=== PATIENT | female | born 1945 | race African-American/Black ===

== ENCOUNTER 2020-10-05 13:13 | Inpatient (IN) | payer MEDICARE ==
[~2020-10-05] VITALS: Ht 152.4 cm; Wt 46.7 kg
[2020-10-05 16:42] VITALS: BP 137/77
[2020-10-05] MEDS ORDERED: METHYL SALICYLATE/MENTHOL TOPICAL OINTMENT 57GM TUBE. TP PRN (16:45)
[2020-10-05] MEDS ORDERED: ACETAMINOPHEN 325 MG TABLET PO PRN (16:45)
[2020-10-05] MEDS ORDERED: MAG HYDROX/AL HYDROX/SIMETH 30 ML ORAL.SUSP PO PRN (16:45)
[2020-10-05] MEDS ORDERED: MAGNESIUM HYDROXIDE 2,400 MG/30 ML ORAL.SUSP. PO PRN (16:45)
[2020-10-05 16:47] VITALS: BP 137/77
[2020-10-05] MEDS: NICOTINE 14MG PATCH. TD SCH (17:19)
[2020-10-05] MEDS ORDERED: DIVA250T PO (18:49)
[2020-10-05] MEDS ORDERED: LATA2.5D2 OP (18:55)
[2020-10-05] MEDS ORDERED: VENL37.510 PO (18:55)
[2020-10-05] MEDS ORDERED: METF10007 PO (18:55)
[2020-10-05] MEDS ORDERED: MELA3TAB4 PO (18:55)
[2020-10-05] MEDS ORDERED: LISI10TA16 PO (18:55)
[2020-10-05] MEDS ORDERED: PRAV20TA2 PO (18:55)
[2020-10-05] MEDS ORDERED: OLAN10TA9 PO (18:55)
[2020-10-05] MEDS: MELATONIN 3 MG TABLET PO SCH (19:34)
[2020-10-05] MEDS ORDERED: OLANZapine 10 MG TABLET PO SCH (21:00)
[2020-10-05] MEDS ORDERED: DIVALPROEX ER 250 MG TAB.ER.24H. PO SCH (21:00)
--- NOTE | 2020-10-05 21:00 | PDOC ---
Exam Note: Jose Note: Please also refer to the separate dictated note~for this date of service dictated separately.~Patient seen individually. Discussed the patient with Nursing staff reviewed the chart.~Reviewed interim history and current functioning. Reviewed vital signs,~Labs/ Radiology~and current medications noted below. Continue current treatment with the changes noted in the dictated addendum note Assessment: Vital Signs/I&O: Vital Signs Date Time Temp Pulse Resp B/P (MAP) Pulse Ox O2 Delivery O2 Flow Rate FiO2 10/05/20 16:47 97.3 110 137/77 (97) 89 10/05/20 16:42 20 refused to put on O2 Current Medications: Meds: Current Medications Medications (Trade) Dose Ordered Sig/Denise Route PRN Reason Start Time Stop Time Status Last Admin Dose Admin Melatonin (Melatonin) 3 mg QHS PO 10/05/20 21:00 10/05/20 19:34 Olanzapine (ZyPREXA) 10 mg QHS PO 10/05/20 21:00 10/05/20 19:34 I have reviewed the current psychotropics carefully including drug interactions. Risk benefit ratio favors no change other than as noted in my dictated progress note. Diagnosis: Problems: (1) Major neurocognitive disorder (2) Dementia in Alzheimer's disease with depression (3) Dementia in Alzheimer's disease with delusions RHETT MATHEW MD Oct 05, 2020 20:59
[2020-10-05] MEDS: LATANOPROST 0.005% OPHTH SOLUTION 2.5ML BOTTLE. OU SCH (21:30)
[2020-10-05] MEDS: ATORVASTATIN CALCIUM 10 MG TABLET. PO SCH (21:34)
--- NOTE | 2020-10-05 22:46 | HP ---
ADMIT DATE: 10/05/2020 PSYCHIATRIC ADMISSION HISTORY/EVALUATION This note covers elements not covered in my initial note on 10/05/2020. This evaluation was conducted via Telehealth Services due to COVID-19 pandemic. IDENTIFYING DATA: The patient is a 74-year-old female referred to us from [facility] where she presented from home within a couple of days from being discharged previously from the inpatient psychiatry Unit at [facility]. The patient has had increasing memory deficits, forgetfulness, confusion, delusions. She was extremely paranoid, psychotic, delusional, refusing medications, wandering from home. She has been belligerent, uncooperative, screaming and others, having marked insomnia. She had failed outpatient psychiatric interventions and prior inpatient psychiatric hospitalization. Behaviors were deemed dangerous, unmanageable resulting in this referral. CHIEF COMPLAINT: "I came here 2 hours back. I don't want to talk anymore. Everyone is trying to do things badly." HISTORY OF PRESENT ILLNESS: The patient has a history of major neurocognitive disorder, probably Alzheimer, vascular and a questionable history of psychotic disorder, unspecified versus bipolar disorder, mixed with psychotic features. She has been residing at home with family who had been caring for her, but recently getting extremely paranoid, delusional with marked insomnia, mood vacillations, agitation, aggression, disruptive behaviors. No active suicidal or homicidal ideation. PAST PSYCHIATRIC HISTORY: As above. MEDICAL HISTORY: Positive for diabetes and hypertension. ACCU-CHEKS: Daily; history of diabetes mellitus. DIET: Soft mechanical diabetic. CODE STATUS: Full code. ALLERGIES: MORPHINE. Ambulates with assistance. CURRENT PSYCHOTROPICS: Depakote 250 mg at bedtime, melatonin 3 mg at bedtime, Zyprexa 10 mg at bedtime, Effexor 37.5 mg daily. FAMILY HISTORY: Noncontributory. SOCIAL HISTORY: No history of alcohol, drug abuse, physical, sexual or elder abuse. She is not known to be a perpetrator. REACTION TO HOSPITALIZATION: The patient is not agreeable to this. REVIEW OF SYSTEMS: No CV, , pulmonary, eye, ENT system symptoms on review, but the patient frequently refuses to answer questions due to her paranoia. MENTAL STATUS EXAMINATION: The patient is oriented to herself. She did know she was initially referred to us previously, which is accurate. Insight, judgment, recent and remote memory, attention, concentration, fund of knowledge poor, consistent with her diagnoses. IMPRESSION: Major neurocognitive disorder, Alzheimer, vascular with delusion, depression, behavioral disturbance; psychotic disorder, unspecified, rule out schizoaffective disorder, bipolar type, mixed with psychotic features; anxiety disorder, unspecified; impulse control disorder, unspecified. Rest unchanged from above. PLAN: Admit to Geropsychiatry Unit at [facility]. I will see the patient daily individually from a psychiatric standpoint. Medical followup with Dr. Argueta/Dr. Walter. Continue the patient on her current psychotropics, get records from [facility], adjust psychotropics post baseline assessment. Consider Depakote as a mood stabilizer. Estimated length of stay 10-12 days. DISPOSITION: Plans either home depending on her progress or a more structured facility. MAN Lucio MATHEW MD DR: GURMEET/yo JOB#: [id number] / [id number]
[2020-10-06 06:31] VITALS: BP 160/95
[2020-10-06 07:34] LABS: BASO % 1 % (0-3); EOS # 0.1 x10^3/uL (0.0-0.7); EOS % 1 % (0-3); HEMATOCRIT 34.3 % (36.0-47.0); HEMOGLOBIN 11.1 g/dL (12.0-15.5); LYMPH # 1.6 x10^3/uL (1.0-4.8); LYMPH % 25 % (24-48); MEAN CORPUSCULAR HEMOGLOBIN 29 pg (25-35); MEAN CORPUSCULAR HGB CONC 32 g/dL (31-37); MEAN CORPUSCULAR VOLUME 90 fL (79-100); MONO # 0.7 x10^3/uL (0.0-1.1); MONO % 12 % (0-9); NEUT # 3.9 x10^3uL (1.8-7.7); NEUT % 62 % (31-73); PLATELET COUNT 250 x10^3/uL (140-400); RED BLOOD COUNT 3.83 x10^6/uL (3.50-5.40); RED CELL DISTRIBUTION WIDTH 14.1 % (11.5-14.5); WHITE BLOOD COUNT 6.3 x10^3/uL (4.0-11.0)
[2020-10-06 08:21] LABS: ALBUMIN 2.9 g/dL (3.4-5.0); ALBUMIN/GLOBULIN RATIO 0.6 (1.0-1.7); ALK PHOS 70 U/L (46-116); ALT (SGPT) 33 U/L (14-59); ANION GAP 2 (6-14); AST (SGOT) 27 U/L (15-37); BLOOD UREA NITROGEN 5 mg/dL (7-20); BUN/CREATININE RATIO 8 (6-20); CALCIUM 8.5 mg/dL (8.5-10.1); CARBON DIOXIDE 37 mmol/L (21-32); CHLORIDE 101 mmol/L (98-107); CREATININE 0.6 mg/dL (0.6-1.0); GFR 118.6; GLUCOSE 150 mg/dL (70-99); MAGNESIUM 1.9 mg/dL (1.8-2.4); POTASSIUM 3.6 mmol/L (3.5-5.1); SODIUM 140 mmol/L (136-145); TOTAL BILIRUBIN 0.2 mg/dL (0.2-1.0); TOTAL PROTEIN 7.5 g/dL (6.4-8.2)
[2020-10-06 08:37] LABS: VAL ACID 14 mcg/mL (50-100)
--- NOTE | 2020-10-06 09:12 | CONS ---
DATE OF CONSULTATION: 10/06/2020 ATTENDING PHYSICIAN: Dr. Conway. HISTORY OF PRESENT ILLNESS: We are asked to see this patient for medical consultation. The patient is a 74-year-old female with a longstanding history of dementia with behavioral issues. She is very paranoid, delusional, refusing meds, refusing blood sticks. She has been at several inpatient psychiatric facilities. She is belligerent, uncooperative, combative, and difficult to manage. She has a medical history of hypertension, degenerative arthritis. CURRENT MEDICATIONS: Reviewed. ALLERGIES: SHE HAS ALLERGIES TO MORPHINE, exact reaction is unclear. Currently, she is taking Depakote, Xalatan eye drops, lisinopril, melatonin, metformin, olanzapine, pravastatin, and Effexor. SOCIAL HISTORY: She is a nonsmoker, drinking history unclear. FAMILY HISTORY: Unobtainable. REVIEW OF SYSTEMS: Unobtainable. PHYSICAL EXAMINATION: GENERAL: When I saw her, this is a demented female who is most uncooperative. INITIAL VITAL SIGNS: Showed a pulse of 113 per minute, blood pressure 160/95, temperature 98.2 degrees Fahrenheit, oxygen saturation 91% on room air. HEENT: Head is without trauma. Pupils are reactive. Sclerae are nonicteric. The oropharynx is clear. NECK: Supple. LUNGS: Good breath sounds. CARDIOVASCULAR: Showed regular heart tones. No gallops. ABDOMEN: Soft, scaphoid. No guarding or rebound tenderness. EXTREMITIES: Showed no cyanosis or edema. NEUROLOGIC: Focally alert. Contact Center Assistant are intact. She has no focal deficit. We could not assess her gait due to her mental status. SKIN: Warm and dry. LABORATORY DATA: Her CBC on admission was 11.1 g/dL with a white count of 6300. Chemistry panel, electrolytes are within range. Creatinine is 0.6 mg percent, nonfasting blood sugar 143. ASSESSMENT: 1. This 74-year-old female has profound dementia with psychosis. 2. Belligerent behavior. 3. Essential hypertension. 4. Type 2 diabetes. 5. The patient is stable from medical standpoint. RECOMMENDATIONS: 1. I reviewed her medicines. I recommended we continue the same dosage if she will take it. 2. We shall gladly follow along during the course of her inpatient care. Thank you again for asking me to see this patient for medical consultation. BRYAN WEEKS MD DR: DAVION/yo JOB#: [id number] / [id number]
[2020-10-06] MEDS: VENLAFAXINE XR 37.5 MG CAP.ER.24H. PO SCH (09:49)
[2020-10-06] MEDS: LISINOPRIL 10 MG TABLET PO SCH (09:50)
[2020-10-06] MEDS: NICOTINE 14MG PATCH. TD SCH (09:50)
[2020-10-06 12:00] LABS: CLARITY,URINE CLEAR; COLOR,URINE YELLOW
[2020-10-06 12:01] LABS: BACTERIA,URINE 0 /HPF (0-FEW); BILIRUBIN,URINE NEG (NEG); GLUCOSE,URINE NEG (NEG); NITRITE,URINE NEG (NEG); RBC,URINE 0 /HPF (0-2); UROBILINOGEN,URINE 0.2 mg/dL (0.2 mg/dL); WBC,URINE 0 /HPF (0-4)
[2020-10-06] MEDS: metFORMIN XR 500 MG TAB.ER.24H PO SCH (12:34)
[2020-10-06 13:10] LABS: THYROXINE 8.3 ug/dL (4.5-12.0)
[2020-10-06 15:20] LABS: THYROID STIM HORMONE (TSH) 2.087 uIU/mL (0.358-3.740)
[2020-10-06 17:44] VITALS: BP 177/69
[2020-10-06] MEDS: MELATONIN 3 MG TABLET PO SCH (19:40)
[2020-10-06] MEDS: VALPROATE ACID 250 MG/5 ML ORAL SOLUTION PO SCH ×3 (19:40→23:00)
[2020-10-06] MEDS: ATORVASTATIN CALCIUM 10 MG TABLET. PO SCH (19:41)
[2020-10-06] MEDS: LATANOPROST 0.005% OPHTH SOLUTION 2.5ML BOTTLE. OU SCH (19:41)
[2020-10-06] MEDS: risperiDONE ORAL 1 MG/ML 30ml BOTTLE. SL SCH ×2 (19:42→23:00)
[2020-10-07] MEDS: LATANOPROST 0.005% OPHTH SOLUTION 2.5ML BOTTLE. OU SCH ×3 (02:57→21:00)
[2020-10-07] MEDS: MELATONIN 3 MG TABLET PO SCH ×3 (02:58→21:00)
[2020-10-07] MEDS: ATORVASTATIN CALCIUM 10 MG TABLET. PO SCH ×3 (02:59→21:00)
[2020-10-07 06:16] VITALS: BP 181/63
[2020-10-07] MEDS: risperiDONE ORAL 1 MG/ML 30ml BOTTLE. SL SCH ×2 (06:17→08:41)
--- NOTE | 2020-10-07 07:59 | PDOC ---
Exam Note: Jose Note: This note is a late entry for 10/06/2020 covers elements not covered in my initial note. Subjective: The patient was reviewed on telehealth rounds in the evening of 10/06/2020 with Sylvain CEBALLOS. Discussed with nursing staff, reviewed the chart. The patient slept 5-3/4 hours previous night. She has been quite paranoid, refusing her labs, EKG, refusing her medications. She has been talking to curtains and actively hallucinating. Oral intake has been poor. Received her Zyprexa and melatonin in food previous night. Review of Systems: Ambulation impaired. No CV, , pulmonary, eye, ENT system symptoms on review. Mental Status Exam: The patient is oriented to herself and situation. Speech is coherent. Abstraction is fair. Computation is impaired. Language function is intact. Attention span is short. She is quite paranoid, psychotic, and dismissive as I met with her on telehealth rounds. No active suicidal or homicidal ideation. Laboratory Data: Reviewed. Impression: Major neurocognitive disorder Alzheimer vascular with delusion, depression, behavioral disturbance. Psychotic disorder unspecified. Anxiety disorder unspecified. Impulse control disorder unspecified. Plan: Given the patients non-compliance with her medications, we will change Depakote ER 250 mg h.s. to Depakene liquid 500 mg any time of the day she takes it. Check CBC, CMP, valproic acid level in 3 days. Check an EKG. Change the Zyprexa 10 mg h.s. to Risperdal liquid 1 mg daily. She can take it any time of the day. Continue Effexor 37.5 mg a day, melatonin 3 mg h.s. Assessment: Vital Signs/I&O: Vital Signs Date Time Temp Pulse Resp B/P (MAP) Pulse Ox O2 Delivery O2 Flow Rate FiO2 10/07/20 06:16 98.0 100 22 181/63 (102) 92 Room Air I & O 10/06/20 10/06/20 10/07/20 15:00 23:00 07:00 Intake Total 200 ml 540 ml Balance 200 ml 540 ml Labs: Laboratory Tests Test 10/06/20 11:05 Urine Collection Type Unknown Urine Color Yellow Urine Clarity Clear Urine pH 8.5 Urine Specific [place] 1.020 Urine Protein Trace (NEG-TRACE) Urine Glucose (UA) Neg mg/dL (NEG) Urine Ketones (Stick) Neg mg/dL (NEG) Urine Blood Neg (NEG) Urine Nitrite Neg (NEG) Urine Bilirubin Neg (NEG) Urine Urobilinogen Dipstick 0.2 mg/dL (0.2 mg/dL) Urine Leukocyte Esterase Neg (NEG) Urine RBC 0 /HPF (0-2) Urine WBC 0 /HPF (0-4) Urine Squamous Epithelial Cells None /LPF Urine Bacteria 0 /HPF (0-FEW) Current Medications: Meds: Laboratory Tests Test 10/06/20 11:05 Urine Collection Type Unknown Urine Color Yellow Urine Clarity Clear Urine pH 8.5 Urine Specific [place] 1.020 Urine Protein Trace Urine Glucose (UA) Neg mg/dL Urine Ketones (Stick) Neg mg/dL Urine Blood Neg Urine Nitrite Neg Urine Bilirubin Neg Urine Urobilinogen Dipstick 0.2 mg/dL Urine Leukocyte Esterase Neg Urine RBC 0 /HPF Urine WBC 0 /HPF Urine Squamous Epithelial Cells None /LPF Urine Bacteria 0 /HPF Current Medications Medications (Trade) Dose Ordered Sig/Denise Route PRN Reason Start Time Stop Time Status Last Admin Dose Admin Acetaminophen (Tylenol) 650 mg PRN Q6HRS PRN PO MILD PAIN / TEMP > 100.3'F 10/05/20 16:45 Multi-Ingredient Ointment (Analgesic [place]) 1 uzair PRN QID PRN TP MUSCLE PAIN 10/05/20 16:45 Al Hydroxide/Mg Hydroxide (Mylanta Plus Xs) 15 ml PRN AFTMEALHC PRN PO DYSPEPSIA 10/05/20 16:45 Magnesium Hydroxide (Milk Of Magnesia) 2,400 mg PRN QHS PRN PO CONSTIPATION 10/05/20 16:45 Nicotine (Nicoderm Cq 14mg Patch) 1 patch DAILY TD 10/05/20 17:30 Divalproex Sodium (Depakote Er) 250 mg QHS PO 10/05/20 21:00 10/06/20 18:27 DC Latanoprost (Xalatan) 1 drop QHS OU 10/05/20 21:00 Lisinopril (Prinivil) 10 mg DAILY PO 10/06/20 09:00 Melatonin (Melatonin) 3 mg QHS PO 10/05/20 21:00 10/05/20 19:34 Olanzapine (ZyPREXA) 10 mg QHS PO 10/05/20 21:00 10/06/20 19:55 DC 10/05/20 19:34 Non-Formulary Medication (Metformin Hcl ) 1,000 mg DAILYWBKFT PO 10/06/20 08:00 10/06/20 10:14 DC Atorvastatin Calcium (Lipitor) 5 mg QHS PO 10/05/20 21:00 Venlafaxine HCl (Effexor Xr) 37.5 mg DAILY PO 10/06/20 09:00 Metformin HCl (Glucophage Xr) 1,000 mg DAILYWBKFT PO 10/06/20 12:00 Risperidone (RisperDAL) 1 mg DAILY SL 10/06/20 20:00 Valproic Acid (Depakene) 250 mg DAILY PO 10/06/20 20:00 I have reviewed the current psychotropics carefully including drug interactions. Risk benefit ratio favors no change other than as noted in my dictated progress note. Diagnosis: Problems: (1) Dementia in Alzheimer's disease with depression (2) Dementia in Alzheimer's disease with delusions (3) Major neurocognitive disorder (4) Vascular dementia with behavior disturbance (5) Dementia, vascular, with delusions (6) Dementia, vascular, with depression (7) Anxiety disorder, unspecified (8) Impulse disorder, unspecified (9) Psychotic disorder RHETT MATHEW MD Oct 07, 2020 07:59
[2020-10-07] MEDS: metFORMIN XR 500 MG TAB.ER.24H PO SCH (08:40)
[2020-10-07] MEDS: LISINOPRIL 10 MG TABLET PO SCH (08:41)
[2020-10-07] MEDS: VENLAFAXINE XR 37.5 MG CAP.ER.24H. PO SCH (08:42)
[2020-10-07] MEDS: NICOTINE 14MG PATCH. TD SCH (12:12)
--- NOTE | 2020-10-07 15:29 | TX PLAN ---
Interdisciplinary Tx Plan Admission Information Oct 05, 2020 at 16:15 Legal Status (on Admission): Voluntary DPOA/Guardian Name: Lolis Yip Contact Verified Code Status: Full Code Allergies: Coded Allergies: morphine (Verified Allergy, Unknown, 10/05/20) Diagnoses Primary Diagnosis: Schizoaffective D/O with psychosis; Major Neurocognitive D/O, Vascular Alzheimers with delusions, depression, and behavioral disturbance Reasons for Admission: Delusions, Sig. Change Sleep, Combative, Suspicious/paranoid, Poor impulse control, Other Problem in Patient's Words: Her behaviors continue to increase over the years and is non-compliant with medications. Additional Admission Comments: According to the intake, pt has insomnia, paranoid, delusional and refusing meds. Pt was found on her neighbors porch after wandering away from home, beligerent, uncooperative, screaming at others, combative. Problems Active Problems: Non-compliant with medications delusional verbal aggression periods of combativeness withdrawn to room Inactive Problems: Up ad saba Self-toilets Pt Strengths/Limitations Ability for [place]: Poor Cognitive Functioning/Ability: Fair Communication Skills/Ability: Fair Financial Resources: Fair Insight/Judgement: Poor Intellectual Ability: Fair Physical Health: Fair Social Skills: Poor Stability in Family: Good Stability in School/Work: Poor Verbal Skills: Fair Discharge Criteria Discharge Criteria: Able meet basic life need, Adequate arrangements @DC, Improved behavior, Improved mood/thought Preliminary Discharge Plan Preliminary DC Plan: Current Living Arrange. Special Precautions Fall Risk: Low Initial D/C Plan Pt to return back home with her caregiver once stable. Identified Discharge Needs: Home healthcare Psychiatric services Case Management Currently Utilized Resources Currently Utilized Resources/P: Primary Care Physician Caregiver in the home Referrals Community Resources: Psychiatric services Case Management Identified Problems/Hx/Goals Objectives/Short-Term Goals Short Term Goals: Dec. Aggression, Dec. Hallucination/Delus, Dec. Outbursts, Medication Stabilization, Promote Coping Skill Short Term Goals in Patient's: N/A Interventions/Frequency Staff Interventions/Frequency&: Psychiatrist to assess pt at least 3x per week for medication management. Social Work to assess pt at least 2x per week for recognizing potential barriers to care and discharge planning. Nursing to assess medication effects, behavioral management and completion of 15 minute checks daily. Encourage group participation in activities (if applicable) or 1:1 engagement based off Activity Dept goals. 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 Education: Pt graduated high school (12th grade), received her associates and went on to receive her Bachelors but never finished the last semester of school. Pt is unsure as to what degree pt was striving for. Community Follow-up Primary Care Physician Psychiatry referral Case management referral Community Provider/Family Inpu: A lot of concerns about medications and fear for restraints in which SW assured pt dtr that restraints are illegal and are not an option on this unit. Pt dtr wants good care and a better quality of life for pt once she is able to return home for [facility]. Treatment Plan Explained Patient/Watch Technician had this treatment plan explained to him/her as indicated by the signature below and has been given the opportunity to ask questions and make suggestions: Date: Patient/Watch Technician Signature: Patient/Watch Technician Decline: No (Pt dtr is very active in pt care) JASPER DIGGS Oct 07, 2020 15:29
[2020-10-07 16:02] VITALS: BP 171/78
--- NOTE | 2020-10-07 20:56 | PDOC ---
Exam Note: Jose Note: Please also refer to the separate dictated note~for this date of service dictated separately.~Patient seen individually. Discussed the patient with Nursing staff reviewed the chart.~Reviewed interim history and current functioning. Reviewed vital signs,~Labs/ Radiology~and current medications noted below. Continue current treatment with the changes noted in the dictated addendum note Assessment: Vital Signs/I&O: Vital Signs Date Time Temp Pulse Resp B/P (MAP) Pulse Ox O2 Delivery O2 Flow Rate FiO2 10/07/20 16:02 97.4 104 18 171/78 (109) 92 10/07/20 06:16 Room Air I & O 10/06/20 10/06/20 10/07/20 15:00 23:00 07:00 Intake Total 200 ml 540 ml Balance 200 ml 540 ml Labs: Laboratory Tests Test 10/07/20 08:00 Glucose (Fingerstick) 166 mg/dL (70-99) H Current Medications: Meds: Laboratory Tests Test 10/07/20 08:00 Glucose (Fingerstick) 166 mg/dL Current Medications Medications (Trade) Dose Ordered Sig/Denise Route PRN Reason Start Time Stop Time Status Last Admin Dose Admin Acetaminophen (Tylenol) 650 mg PRN Q6HRS PRN PO MILD PAIN / TEMP > 100.3'F 10/05/20 16:45 Multi-Ingredient Ointment (Analgesic [place]) 1 uzair PRN QID PRN TP MUSCLE PAIN 10/05/20 16:45 Al Hydroxide/Mg Hydroxide (Mylanta Plus Xs) 15 ml PRN AFTMEALHC PRN PO DYSPEPSIA 10/05/20 16:45 Magnesium Hydroxide (Milk Of Magnesia) 2,400 mg PRN QHS PRN PO CONSTIPATION 10/05/20 16:45 Nicotine (Nicoderm Cq 14mg Patch) 1 patch DAILY TD 10/05/20 17:30 Divalproex Sodium (Depakote Er) 250 mg QHS PO 10/05/20 21:00 10/06/20 18:27 DC Latanoprost (Xalatan) 1 drop QHS OU 10/05/20 21:00 Lisinopril (Prinivil) 10 mg DAILY PO 10/06/20 09:00 10/07/20 08:41 Melatonin (Melatonin) 3 mg QHS PO 10/05/20 21:00 10/05/20 19:34 Olanzapine (ZyPREXA) 10 mg QHS PO 10/05/20 21:00 10/06/20 19:55 DC 10/05/20 19:34 Non-Formulary Medication (Metformin Hcl ) 1,000 mg DAILYWBKFT PO 10/06/20 08:00 10/06/20 10:14 DC Atorvastatin Calcium (Lipitor) 5 mg QHS PO 10/05/20 21:00 Venlafaxine HCl (Effexor Xr) 37.5 mg DAILY PO 10/06/20 09:00 10/07/20 08:42 Metformin HCl (Glucophage Xr) 1,000 mg DAILYWBKFT PO 10/06/20 12:00 10/07/20 08:40 Risperidone (RisperDAL) 1 mg DAILY SL 10/06/20 20:00 10/07/20 08:41 Valproic Acid (Depakene) 250 mg DAILY PO 10/06/20 20:00 I have reviewed the current psychotropics carefully including drug interactions. Risk benefit ratio favors no change other than as noted in my dictated progress note. Diagnosis: Problems: (1) Dementia in Alzheimer's disease with depression (2) Dementia in Alzheimer's disease with delusions (3) Major neurocognitive disorder (4) Psychotic disorder (5) Anxiety disorder, unspecified (6) Dementia, vascular, with depression (7) Dementia, vascular, with delusions (8) Impulse disorder, unspecified (9) Vascular dementia with behavior disturbance RHETT MATHEW MD Oct 07, 2020 20:56
--- NOTE | 2020-10-07 22:50 | PN ---
DATE: 10/07/2020 PSYCHIATRIC PROGRESS NOTE This note covers elements not covered in my initial note 10/07/2020. SUBJECTIVE: I met with the patient evening of 10/07/2020 on telehealth rounds at length and earlier in the day. The patient was seen at a treatment team meeting with the entire team along with LIN Narayan, her nurse and her daughter, Estella, attending and Indu Barakat and Serina from adoption social worker staff and Deedee, activity therapy. We reviewed the patient's history at length and daughter remarked how the patient has had a longstanding diagnosis of bipolar disorder versus schizophrenia, most probably consistent with schizoaffective disorder, bipolar type. Daughter remembered that when daughter was in high school, mother remained in outpatient psychiatric treatment and has had multiple psychiatric inpatient hospitalizations. The daughter is a legal guardian. Symptoms seemed to worsen starting in 2012 and most of her hospitalizations have been at [facility]. Daughter feels the patient responds negatively to Haldol and we will note this as an allergy for her since the daughter is quite clear on this. Additionally, recently, she has had some increased confusion, even though she recognizes family members. She is forgetful of dates. She slept 5 hours previous night. She has done a little better today, less paranoid, seems to be responding to the Risperdal, which we initiated 1 mg at bedtime. In the evening, she was having a conversation with herself actively, continues to be psychotic even though there is some improvement. REVIEW OF SYSTEMS: No CV, , pulmonary, eye system symptoms on review. MENTAL STATUS EXAMINATION: The patient is oriented to herself and situation. Speech has some latency, coherent, often responses monosyllabic. Abstraction fair, computation impaired, language function intact, attention span short. She is quite paranoid, suspicious. No suicidal or homicidal ideation. LABORATORY DATA: Reviewed. IMPRESSION: Schizoaffective disorder, bipolar type, mixed with psychotic features; mild cognitive impairment versus major neurocognitive disorder; early Alzheimer, vascular with delusion and depression. The patient may need neuropsychological testing as an outpatient. IMPRESSION: as above. PLAN: Continue current psychotropics. May need to increase Risperdal and adjust Depakene post-valproic acid level being obtained. MAN M. PRIYANKA, MD DR: GURMEET/yo JOB#: [id number] / [id number]
[2020-10-08 06:05] VITALS: BP 165/80
[2020-10-08] MEDS: metFORMIN XR 500 MG TAB.ER.24H PO SCH (08:00)
[2020-10-08] MEDS: LISINOPRIL 10 MG TABLET PO SCH (08:44)
[2020-10-08] MEDS: VENLAFAXINE XR 37.5 MG CAP.ER.24H. PO SCH (08:44)
[2020-10-08] MEDS: NICOTINE 14MG PATCH. TD SCH (08:44)
[2020-10-08] MEDS: risperiDONE ORAL 1 MG/ML 30ml BOTTLE. SL SCH (08:59)
[2020-10-08] MEDS: VALPROATE ACID 250 MG/5 ML ORAL SOLUTION PO SCH (08:59)
[2020-10-08 16:25] VITALS: BP 165/69
[2020-10-08] MEDS: ATORVASTATIN CALCIUM 10 MG TABLET. PO SCH ×2 (20:23→21:00)
[2020-10-08] MEDS: LATANOPROST 0.005% OPHTH SOLUTION 2.5ML BOTTLE. OU SCH ×2 (20:23→21:00)
[2020-10-08] MEDS: MELATONIN 3 MG TABLET PO SCH ×2 (20:23→21:00)
--- NOTE | 2020-10-08 21:04 | PDOC ---
Exam Note: Jose Note: Please also refer to the separate dictated note~for this date of service dictated separately.~Patient seen individually. Discussed the patient with Nursing staff reviewed the chart.~Reviewed interim history and current functioning. Reviewed vital signs,~Labs/ Radiology~and current medications noted below. Continue current treatment with the changes noted in the dictated addendum note Assessment: Vital Signs/I&O: Vital Signs Date Time Temp Pulse Resp B/P (MAP) Pulse Ox O2 Delivery O2 Flow Rate FiO2 10/08/20 16:25 98.5 96 20 165/69 (101) 93 Room Air I & O 10/07/20 10/07/20 10/08/20 15:00 23:00 07:00 Intake Total 720 ml 460 ml Balance 720 ml 460 ml Labs: Laboratory Tests Test 10/08/20 07:40 Glucose (Fingerstick) 153 mg/dL (70-99) H Current Medications: Meds: Laboratory Tests Test 10/08/20 07:40 Glucose (Fingerstick) 153 mg/dL Current Medications Medications (Trade) Dose Ordered Sig/Denise Route PRN Reason Start Time Stop Time Status Last Admin Dose Admin Acetaminophen (Tylenol) 650 mg PRN Q6HRS PRN PO MILD PAIN / TEMP > 100.3'F 10/05/20 16:45 Multi-Ingredient Ointment (Analgesic [place]) 1 uzair PRN QID PRN TP MUSCLE PAIN 10/05/20 16:45 Al Hydroxide/Mg Hydroxide (Mylanta Plus Xs) 15 ml PRN AFTMEALHC PRN PO DYSPEPSIA 10/05/20 16:45 Magnesium Hydroxide (Milk Of Magnesia) 2,400 mg PRN QHS PRN PO CONSTIPATION 10/05/20 16:45 Nicotine (Nicoderm Cq 14mg Patch) 1 patch DAILY TD 10/05/20 17:30 10/08/20 08:44 Divalproex Sodium (Depakote Er) 250 mg QHS PO 10/05/20 21:00 10/06/20 18:27 DC Latanoprost (Xalatan) 1 drop QHS OU 10/05/20 21:00 10/08/20 20:23 Lisinopril (Prinivil) 10 mg DAILY PO 10/06/20 09:00 10/08/20 08:44 Melatonin (Melatonin) 3 mg QHS PO 10/05/20 21:00 10/08/20 20:23 Olanzapine (ZyPREXA) 10 mg QHS PO 10/05/20 21:00 10/06/20 19:55 DC 10/05/20 19:34 Non-Formulary Medication (Metformin Hcl ) 1,000 mg DAILYWBKFT PO 10/06/20 08:00 10/06/20 10:14 DC Atorvastatin Calcium (Lipitor) 5 mg QHS PO 10/05/20 21:00 10/08/20 20:23 Venlafaxine HCl (Effexor Xr) 37.5 mg DAILY PO 10/06/20 09:00 10/08/20 08:44 Metformin HCl (Glucophage Xr) 1,000 mg DAILYWBKFT PO 10/06/20 12:00 10/08/20 08:00 Risperidone (RisperDAL) 1 mg DAILY SL 10/06/20 20:00 10/08/20 17:08 DC 10/07/20 08:41 Valproic Acid (Depakene) 250 mg DAILY PO 10/06/20 20:00 10/08/20 17:08 DC Divalproex Sodium (Depakote Sprinkles) 500 mg DAILY PO 10/09/20 09:00 Risperidone (RisperDAL) 1.5 mg DAILY PO 10/09/20 09:00 I have reviewed the current psychotropics carefully including drug interactions. Risk benefit ratio favors no change other than as noted in my dictated progress note. Diagnosis: Problems: (1) Dementia in Alzheimer's disease with depression (2) Dementia in Alzheimer's disease with delusions (3) Major neurocognitive disorder (4) Psychotic disorder (5) Anxiety disorder, unspecified (6) Dementia, vascular, with depression (7) Dementia, vascular, with delusions (8) Impulse disorder, unspecified (9) Vascular dementia with behavior disturbance RHETT MATHEW MD Oct 08, 2020 21:04
[2020-10-09 05:53] VITALS: BP 157/77
[2020-10-09 07:28] LABS: BASO % 1 % (0-3); EOS # 0.1 x10^3/uL (0.0-0.7); EOS % 2 % (0-3); HEMATOCRIT 34.2 % (36.0-47.0); HEMOGLOBIN 11.1 g/dL (12.0-15.5); LYMPH # 1.3 x10^3/uL (1.0-4.8); LYMPH % 25 % (24-48); MEAN CORPUSCULAR HEMOGLOBIN 29 pg (25-35); MEAN CORPUSCULAR HGB CONC 32 g/dL (31-37); MEAN CORPUSCULAR VOLUME 91 fL (79-100); MONO # 0.7 x10^3/uL (0.0-1.1); MONO % 13 % (0-9); NEUT % 59 % (31-73); PLATELET COUNT 258 x10^3/uL (140-400); RED BLOOD COUNT 3.77 x10^6/uL (3.50-5.40); WHITE BLOOD COUNT 5.1 x10^3/uL (4.0-11.0)
--- NOTE | 2020-10-09 07:31 | PDOC ---
Exam Note: Jose Note: This note is a late entry for 10/08/2020 covers elements not covered in my initial note. Subjective: The patient was reviewed on telehealth rounds in the evening of 10/08/2020 with Eryn CEBALLOS. Discussed with nursing staff, reviewed the chart. The patient slept 3-1/4 hours previous night. She is well aware of her medications, able to identify each one separately per nursing report. She continues to talk to herself, remains intermittently psychotic but refused her liquid Risperdal and Depakene. She is agreeable to taking the tablets and I had discussion with her about this. Review of Systems: Ambulation impaired. No CV, , pulmonary, eye, ENT system symptoms on review. Mental Status Exam: The patient is reasonably oriented. Speech is coherent, somewhat pressured at times. Abstraction is fair. Computation is impaired. Language function is intact. Mood and affect remains somewhat anxious, labile. She is still psychotic. No suicidal or homicidal ideation. Laboratory Data: Reviewed. Impression: Schizoaffective disorder bipolar type mixed with psychotic features. Mild cognitive impairment. Anxiety disorder unspecified. Impulse control disorder unspecified. Plan: The patients valproic acid level is subtherapeutic at 14 on Depakote 250 mg h.s. We will increase to 500 mg p.o. h.s. Check CBC, CMP, valproic acid level in 3 days. Increase Risperdal from 1 mg daily to 1.5 mg daily tablets. Continue rest of the psychotropics unchanged. Adjust further as clinically indicated. Assessment: Vital Signs/I&O: Vital Signs Date Time Temp Pulse Resp B/P (MAP) Pulse Ox O2 Delivery O2 Flow Rate FiO2 10/09/20 05:53 98.5 89 18 157/77 (103) 92 10/08/20 16:25 Room Air I & O 10/08/20 10/08/20 10/09/20 15:00 23:00 07:00 Intake Total 600 ml 720 ml Balance 600 ml 720 ml Labs: Laboratory Tests Test 10/08/20 07:40 Glucose (Fingerstick) 153 mg/dL (70-99) H Current Medications: Meds: Laboratory Tests Test 10/08/20 07:40 Glucose (Fingerstick) 153 mg/dL Current Medications Medications (Trade) Dose Ordered Sig/Denise Route PRN Reason Start Time Stop Time Status Last Admin Dose Admin Acetaminophen (Tylenol) 650 mg PRN Q6HRS PRN PO MILD PAIN / TEMP > 100.3'F 10/05/20 16:45 Multi-Ingredient Ointment (Analgesic [place]) 1 uzair PRN QID PRN TP MUSCLE PAIN 10/05/20 16:45 Al Hydroxide/Mg Hydroxide (Mylanta Plus Xs) 15 ml PRN AFTMEALHC PRN PO DYSPEPSIA 10/05/20 16:45 Magnesium Hydroxide (Milk Of Magnesia) 2,400 mg PRN QHS PRN PO CONSTIPATION 10/05/20 16:45 Nicotine (Nicoderm Cq 14mg Patch) 1 patch DAILY TD 10/05/20 17:30 10/08/20 08:44 Divalproex Sodium (Depakote Er) 250 mg QHS PO 10/05/20 21:00 10/06/20 18:27 DC Latanoprost (Xalatan) 1 drop QHS OU 10/05/20 21:00 Lisinopril (Prinivil) 10 mg DAILY PO 10/06/20 09:00 10/08/20 08:44 Melatonin (Melatonin) 3 mg QHS PO 10/05/20 21:00 10/05/20 19:34 Olanzapine (ZyPREXA) 10 mg QHS PO 10/05/20 21:00 10/06/20 19:55 DC 10/05/20 19:34 Non-Formulary Medication (Metformin Hcl ) 1,000 mg DAILYWBKFT PO 10/06/20 08:00 10/06/20 10:14 DC Atorvastatin Calcium (Lipitor) 5 mg QHS PO 10/05/20 21:00 Venlafaxine HCl (Effexor Xr) 37.5 mg DAILY PO 10/06/20 09:00 10/08/20 08:44 Metformin HCl (Glucophage Xr) 1,000 mg DAILYWBKFT PO 10/06/20 12:00 10/08/20 08:00 Risperidone (RisperDAL) 1 mg DAILY SL 10/06/20 20:00 10/08/20 17:08 DC 10/07/20 08:41 Valproic Acid (Depakene) 250 mg DAILY PO 10/06/20 20:00 10/08/20 17:08 DC Divalproex Sodium (Depakote Sprinkles) 500 mg DAILY PO 10/09/20 09:00 Risperidone (RisperDAL) 1.5 mg DAILY PO 10/09/20 09:00 I have reviewed the current psychotropics carefully including drug interactions. Risk benefit ratio favors no change other than as noted in my dictated progress note. Diagnosis: Problems: (1) Schizoaffective disorder, bipolar type (2) Bipolar disorder, current episode mixed, severe, with psychotic features (3) Mild cognitive impairment (4) Anxiety disorder, unspecified (5) Impulse disorder, unspecified RHETT MATHEW MD Oct 09, 2020 07:31
[2020-10-09] MEDS: VENLAFAXINE XR 37.5 MG CAP.ER.24H. PO SCH (08:16)
[2020-10-09] MEDS: DIVALPROEX 125 MG CAP.SPRINK PO SCH (08:16)
[2020-10-09] MEDS: metFORMIN XR 500 MG TAB.ER.24H PO SCH (08:16)
[2020-10-09] MEDS: risperiDONE 0.5 MG TABLET. PO SCH (08:16)
[2020-10-09] MEDS: LISINOPRIL 10 MG TABLET PO SCH (08:16)
[2020-10-09] MEDS: NICOTINE 14MG PATCH. TD SCH (08:16)
[2020-10-09 09:14] LABS: ALBUMIN 3.4 g/dL (3.4-5.0); ALBUMIN/GLOBULIN RATIO 0.7 (1.0-1.7); ALK PHOS 76 U/L (46-116); ALT (SGPT) 32 U/L (14-59); ANION GAP 2 (6-14); AST (SGOT) 26 U/L (15-37); BLOOD UREA NITROGEN 9 mg/dL (7-20); BUN/CREATININE RATIO 13 (6-20); CALCIUM 9.3 mg/dL (8.5-10.1); CARBON DIOXIDE 37 mmol/L (21-32); CHLORIDE 96 mmol/L (98-107); CREATININE 0.7 mg/dL (0.6-1.0); GFR 99.2; GLUCOSE 140 mg/dL (70-99); POTASSIUM 4.2 mmol/L (3.5-5.1); SODIUM 135 mmol/L (136-145); TOTAL BILIRUBIN 0.4 mg/dL (0.2-1.0); TOTAL PROTEIN 8.4 g/dL (6.4-8.2)
[2020-10-09 09:29] LABS: VAL ACID < 3 mcg/mL (50-100)
[2020-10-09 16:07] VITALS: BP 137/77
--- NOTE | 2020-10-09 20:48 | PDOC ---
Exam Note: Jose Note: Please also refer to the separate dictated note~for this date of service dictated separately.~Patient seen individually. Discussed the patient with Nursing staff reviewed the chart.~Reviewed interim history and current functioning. Reviewed vital signs,~Labs/ Radiology~and current medications noted below. Continue current treatment with the changes noted in the dictated addendum note Assessment: Vital Signs/I&O: Vital Signs Date Time Temp Pulse Resp B/P (MAP) Pulse Ox O2 Delivery O2 Flow Rate FiO2 10/09/20 16:07 98.2 92 18 137/77 (97) 97 10/08/20 16:25 Room Air I & O 10/08/20 10/08/20 10/09/20 15:00 23:00 07:00 Intake Total 600 ml 720 ml Balance 600 ml 720 ml Labs: Laboratory Tests Test 10/09/20 07:04 10/09/20 07:23 White Blood Count 5.1 x10^3/uL (4.0-11.0) Red Blood Count 3.77 x10^6/uL (3.50-5.40) Hemoglobin 11.1 g/dL (12.0-15.5) L Hematocrit 34.2 % (36.0-47.0) L Mean Corpuscular Volume 91 fL (79-100) Mean Corpuscular Hemoglobin 29 pg (25-35) Mean Corpuscular Hemoglobin Concent 32 g/dL (31-37) Red Cell Distribution Width 14.0 % (11.5-14.5) Platelet Count 258 x10^3/uL (140-400) Neutrophils (%) (Auto) 59 % (31-73) Lymphocytes (%) (Auto) 25 % (24-48) Monocytes (%) (Auto) 13 % (0-9) H Eosinophils (%) (Auto) 2 % (0-3) Basophils (%) (Auto) 1 % (0-3) Neutrophils # (Auto) 3.0 x10^3uL (1.8-7.7) Lymphocytes # (Auto) 1.3 x10^3/uL (1.0-4.8) Monocytes # (Auto) 0.7 x10^3/uL (0.0-1.1) Eosinophils # (Auto) 0.1 x10^3/uL (0.0-0.7) Basophils # (Auto) 0.0 x10^3/uL (0.0-0.2) Sodium Level 135 mmol/L (136-145) L Potassium Level 4.2 mmol/L (3.5-5.1) Chloride Level 96 mmol/L (98-107) L Carbon Dioxide Level 37 mmol/L (21-32) H Anion Gap 2 (6-14) L Blood Urea Nitrogen 9 mg/dL (7-20) Creatinine 0.7 mg/dL (0.6-1.0) Estimated GFR (Cockcroft-Gault) 99.2 BUN/Creatinine Ratio 13 (6-20) Glucose Level 140 mg/dL (70-99) H Calcium Level 9.3 mg/dL (8.5-10.1) Total Bilirubin 0.4 mg/dL (0.2-1.0) Aspartate Amino Transferase (AST) 26 U/L (15-37) Alanine Aminotransferase (ALT) 32 U/L (14-59) Alkaline Phosphatase 76 U/L (46-116) Total Protein 8.4 g/dL (6.4-8.2) H Albumin 3.4 g/dL (3.4-5.0) Albumin/Globulin Ratio 0.7 (1.0-1.7) L Valproic Acid Level < 3 mcg/mL (50-100) L Valproic Acid Last Dose Date 10/08/2020 Valproic Acid Last Dose Time 1000 Glucose (Fingerstick) 137 mg/dL (70-99) H Current Medications: Meds: Laboratory Tests Test 10/09/20 07:04 10/09/20 07:23 White Blood Count 5.1 x10^3/uL Red Blood Count 3.77 x10^6/uL Hemoglobin 11.1 g/dL Hematocrit 34.2 % Mean Corpuscular Volume 91 fL Mean Corpuscular Hemoglobin 29 pg Mean Corpuscular Hemoglobin Concent 32 g/dL Red Cell Distribution Width 14.0 % Platelet Count 258 x10^3/uL Neutrophils (%) (Auto) 59 % Lymphocytes (%) (Auto) 25 % Monocytes (%) (Auto) 13 % Eosinophils (%) (Auto) 2 % Basophils (%) (Auto) 1 % Neutrophils # (Auto) 3.0 x10^3uL Lymphocytes # (Auto) 1.3 x10^3/uL Monocytes # (Auto) 0.7 x10^3/uL Eosinophils # (Auto) 0.1 x10^3/uL Basophils # (Auto) 0.0 x10^3/uL Sodium Level 135 mmol/L Potassium Level 4.2 mmol/L Chloride Level 96 mmol/L Carbon Dioxide Level 37 mmol/L Anion Gap 2 Blood Urea Nitrogen 9 mg/dL Creatinine 0.7 mg/dL Estimated GFR (Cockcroft-Gault) 99.2 BUN/Creatinine Ratio 13 Glucose Level 140 mg/dL Calcium Level 9.3 mg/dL Total Bilirubin 0.4 mg/dL Aspartate Amino Transf (AST/SGOT) 26 U/L Alanine Aminotransferase (ALT/SGPT) 32 U/L Alkaline Phosphatase 76 U/L Total Protein 8.4 g/dL Albumin 3.4 g/dL Albumin/Globulin Ratio 0.7 Valproic Acid (Depakene) Level < 3 mcg/mL Valproic Acid Last Dose Date 10/08/2020 Valproic Acid Last Dose Time 1000 Glucose (Fingerstick) 137 mg/dL Current Medications Medications (Trade) Dose Ordered Sig/Denise Route PRN Reason Start Time Stop Time Status Last Admin Dose Admin Acetaminophen (Tylenol) 650 mg PRN Q6HRS PRN PO MILD PAIN / TEMP > 100.3'F 10/05/20 16:45 Multi-Ingredient Ointment (Analgesic [place]) 1 uzair PRN QID PRN TP MUSCLE PAIN 10/05/20 16:45 Al Hydroxide/Mg Hydroxide (Mylanta Plus Xs) 15 ml PRN AFTMEALHC PRN PO DYSPEPSIA 10/05/20 16:45 Magnesium Hydroxide (Milk Of Magnesia) 2,400 mg PRN QHS PRN PO CONSTIPATION 10/05/20 16:45 Nicotine (Nicoderm Cq 14mg Patch) 1 patch DAILY TD 10/05/20 17:30 10/09/20 08:16 Divalproex Sodium (Depakote Er) 250 mg QHS PO 10/05/20 21:00 10/06/20 18:27 DC Latanoprost (Xalatan) 1 drop QHS OU 10/05/20 21:00 Lisinopril (Prinivil) 10 mg DAILY PO 10/06/20 09:00 10/09/20 08:16 Melatonin (Melatonin) 3 mg QHS PO 10/05/20 21:00 10/05/20 19:34 Olanzapine (ZyPREXA) 10 mg QHS PO 10/05/20 21:00 10/06/20 19:55 DC 10/05/20 19:34 Non-Formulary Medication (Metformin Hcl ) 1,000 mg DAILYWBKFT PO 10/06/20 08:00 10/06/20 10:14 DC Atorvastatin Calcium (Lipitor) 5 mg QHS PO 10/05/20 21:00 Venlafaxine HCl (Effexor Xr) 37.5 mg DAILY PO 10/06/20 09:00 10/09/20 08:16 Metformin HCl (Glucophage Xr) 1,000 mg DAILYWBKFT PO 10/06/20 12:00 10/09/20 08:16 Risperidone (RisperDAL) 1 mg DAILY SL 10/06/20 20:00 10/08/20 17:08 DC 10/07/20 08:41 Valproic Acid (Depakene) 250 mg DAILY PO 10/06/20 20:00 10/08/20 17:08 DC Divalproex Sodium (Depakote Sprinkles) 500 mg DAILY PO 10/09/20 09:00 10/09/20 08:16 Risperidone (RisperDAL) 1.5 mg DAILY PO 10/09/20 09:00 10/09/20 08:16 Current Medications Medications (Trade) Dose Ordered Sig/Denise Route PRN Reason Start Time Stop Time Status Last Admin Dose Admin Divalproex Sodium (Depakote Sprinkles) 500 mg DAILY PO 10/09/20 09:00 10/09/20 08:16 Risperidone (RisperDAL) 1.5 mg DAILY PO 10/09/20 09:00 10/09/20 08:16 I have reviewed the current psychotropics carefully including drug interactions. Risk benefit ratio favors no change other than as noted in my dictated progress note. Diagnosis: Problems: (1) Schizoaffective disorder, bipolar type (2) Bipolar disorder, current episode mixed, severe, with psychotic features (3) Anxiety disorder, unspecified (4) Impulse disorder, unspecified (5) Mild cognitive impairment RHETT MATHEW MD Oct 09, 2020 20:48
[2020-10-09] MEDS: ATORVASTATIN CALCIUM 10 MG TABLET. PO SCH (21:00)
[2020-10-09] MEDS: MELATONIN 3 MG TABLET PO SCH (21:00)
[2020-10-09] MEDS: LATANOPROST 0.005% OPHTH SOLUTION 2.5ML BOTTLE. OU SCH (21:00)
[2020-10-09] MEDS ORDERED: risperiDONE 0.25 MG TABLET. PO ONE (21:15)
[2020-10-09] MEDS ORDERED: DIVALPROEX 125 MG CAP.SPRINK PO ONE (21:15)
[2020-10-10 06:38] VITALS: BP 150/64
--- NOTE | 2020-10-10 07:35 | PDOC ---
Exam Note: Jose Note: This note is a late entry for 10/09/2020 covers elements not covered in my initial note. Subjective: The patient was reviewed on telehealth rounds in the evening of 10/09/2020 with Ashwin CEBALLOS. Discussed with nursing staff, reviewed the chart. The patient slept 4-3/4 hours previous night. She refused h.s. medications previous evening. I discussed with nursing staff to contact the patients daughter if this happens. Hopefully the daughter can talk to the patient into taking her medications. Today she did receive her Risperdal and grape juice. She was having her hair done by nursing staff in the evening as I met with her on telehealth rounds. She remains paranoid, anxious, but little better than before. Non-compliance with medications is compromising her response to antipsychotics. She is currently on 1.5 mg Risperdal daily given her age and overall status and past response to treatment is a very adequate dosage but non- compliance is what compromises her adequate response to this. Review of Systems: Ambulation impaired. No CV, , pulmonary, eye, ENT system symptoms on review. Mental Status Exam: The patient is reasonably oriented. Speech is coherent, somewhat pressured. Abstraction is fair. Computation is impaired. Language function is intact, still paranoid. No suicidal or homicidal ideation. Laboratory Data: Reviewed. Impression: Schizoaffective disorder bipolar type mixed with psychotic features. Mild cognitive impairment. Anxiety disorder unspecified. Impulse control disorder unspecified. Plan: We discussed compliance with the medications at length with her. She is agreeable to taking them regularly. Continue Depakote which was increased. Follow labs level. Continue the increased Risperdal. Rest unchanged for now. Assessment: Vital Signs/I&O: Vital Signs Date Time Temp Pulse Resp B/P (MAP) Pulse Ox O2 Delivery O2 Flow Rate FiO2 10/10/20 06:38 98.1 98 18 150/64 (92) 96 10/08/20 16:25 Room Air I & O 10/09/20 10/09/20 10/10/20 15:00 23:00 07:00 Intake Total 480 ml 600 ml Balance 480 ml 600 ml Current Medications: Meds: Current Medications Medications (Trade) Dose Ordered Sig/Denise Route PRN Reason Start Time Stop Time Status Last Admin Dose Admin Acetaminophen (Tylenol) 650 mg PRN Q6HRS PRN PO MILD PAIN / TEMP > 100.3'F 10/05/20 16:45 Multi-Ingredient Ointment (Analgesic [place]) 1 uzair PRN QID PRN TP MUSCLE PAIN 10/05/20 16:45 Al Hydroxide/Mg Hydroxide (Mylanta Plus Xs) 15 ml PRN AFTMEALHC PRN PO DYSPEPSIA 10/05/20 16:45 Magnesium Hydroxide (Milk Of Magnesia) 2,400 mg PRN QHS PRN PO CONSTIPATION 10/05/20 16:45 Nicotine (Nicoderm Cq 14mg Patch) 1 patch DAILY TD 10/05/20 17:30 10/09/20 08:16 Divalproex Sodium (Depakote Er) 250 mg QHS PO 10/05/20 21:00 10/06/20 18:27 DC Latanoprost (Xalatan) 1 drop QHS OU 10/05/20 21:00 Lisinopril (Prinivil) 10 mg DAILY PO 10/06/20 09:00 10/09/20 08:16 Melatonin (Melatonin) 3 mg QHS PO 10/05/20 21:00 10/05/20 19:34 Olanzapine (ZyPREXA) 10 mg QHS PO 10/05/20 21:00 10/06/20 19:55 DC 10/05/20 19:34 Non-Formulary Medication (Metformin Hcl ) 1,000 mg DAILYWBKFT PO 10/06/20 08:00 10/06/20 10:14 DC Atorvastatin Calcium (Lipitor) 5 mg QHS PO 10/05/20 21:00 Venlafaxine HCl (Effexor Xr) 37.5 mg DAILY PO 10/06/20 09:00 10/09/20 08:16 Metformin HCl (Glucophage Xr) 1,000 mg DAILYWBKFT PO 10/06/20 12:00 10/09/20 08:16 Risperidone (RisperDAL) 1 mg DAILY SL 10/06/20 20:00 10/08/20 17:08 DC 10/07/20 08:41 Valproic Acid (Depakene) 250 mg DAILY PO 10/06/20 20:00 10/08/20 17:08 DC Divalproex Sodium (Depakote Sprinkles) 500 mg DAILY PO 10/09/20 09:00 10/09/20 08:16 Risperidone (RisperDAL) 1.5 mg DAILY PO 10/09/20 09:00 10/09/20 08:16 Risperidone (RisperDAL) 1.5 mg 1X ONCE PO 10/09/20 21:15 10/09/20 21:16 DC 10/09/20 21:15 Divalproex Sodium (Depakote Sprinkles) 500 mg 1X ONCE PO 10/09/20 21:15 10/09/20 21:16 DC 10/09/20 21:15 Current Medications Medications (Trade) Dose Ordered Sig/Denise Route PRN Reason Start Time Stop Time Status Last Admin Dose Admin Divalproex Sodium (Depakote Sprinkles) 500 mg DAILY PO 10/09/20 09:00 10/09/20 08:16 Risperidone (RisperDAL) 1.5 mg DAILY PO 10/09/20 09:00 10/09/20 08:16 Risperidone (RisperDAL) 1.5 mg 1X ONCE PO 10/09/20 21:15 10/09/20 21:16 DC 10/09/20 21:15 Divalproex Sodium (Depakote Sprinkles) 500 mg 1X ONCE PO 10/09/20 21:15 10/09/20 21:16 DC 10/09/20 21:15 I have reviewed the current psychotropics carefully including drug interactions. Risk benefit ratio favors no change other than as noted in my dictated progress note. Diagnosis: Problems: (1) Schizoaffective disorder, bipolar type (2) Mild cognitive impairment (3) Bipolar disorder, current episode mixed, severe, with psychotic features (4) Anxiety disorder, unspecified RHETT MATHEW MD Oct 10, 2020 07:35
[2020-10-10] MEDS: metFORMIN XR 500 MG TAB.ER.24H PO SCH (08:10)
[2020-10-10] MEDS: risperiDONE 0.5 MG TABLET. PO SCH (08:10)
[2020-10-10] MEDS: LISINOPRIL 10 MG TABLET PO SCH (08:10)
[2020-10-10] MEDS: VENLAFAXINE XR 37.5 MG CAP.ER.24H. PO SCH (08:10)
[2020-10-10] MEDS: NICOTINE 14MG PATCH. TD SCH (08:11)
[2020-10-10] MEDS: DIVALPROEX 125 MG CAP.SPRINK PO SCH (08:11)
[2020-10-10 15:43] VITALS: BP 179/80
--- NOTE | 2020-10-10 20:48 | PDOC ---
Exam Note: Jose Note: Please also refer to the separate dictated note~for this date of service dictated separately.~Patient seen individually. Discussed the patient with Nursing staff reviewed the chart.~Reviewed interim history and current functioning. Reviewed vital signs,~Labs/ Radiology~and current medications noted below. Continue current treatment with the changes noted in the dictated addendum note Assessment: Vital Signs/I&O: Vital Signs Date Time Temp Pulse Resp B/P (MAP) Pulse Ox O2 Delivery O2 Flow Rate FiO2 10/10/20 15:43 98.4 92 17 179/80 (113) 89 Room Air I & O 10/09/20 10/09/20 10/10/20 14:59 22:59 06:59 Intake Total 480 ml 600 ml Balance 480 ml 600 ml Labs: Laboratory Tests Test 10/10/20 08:00 Glucose (Fingerstick) 139 mg/dL (70-99) H Current Medications: Meds: Laboratory Tests Test 10/10/20 08:00 Glucose (Fingerstick) 139 mg/dL Current Medications Medications (Trade) Dose Ordered Sig/Denise Route PRN Reason Start Time Stop Time Status Last Admin Dose Admin Acetaminophen (Tylenol) 650 mg PRN Q6HRS PRN PO MILD PAIN / TEMP > 100.3'F 10/05/20 16:45 Multi-Ingredient Ointment (Analgesic [place]) 1 uzair PRN QID PRN TP MUSCLE PAIN 10/05/20 16:45 Al Hydroxide/Mg Hydroxide (Mylanta Plus Xs) 15 ml PRN AFTMEALHC PRN PO DYSPEPSIA 10/05/20 16:45 Magnesium Hydroxide (Milk Of Magnesia) 2,400 mg PRN QHS PRN PO CONSTIPATION 10/05/20 16:45 Nicotine (Nicoderm Cq 14mg Patch) 1 patch DAILY TD 10/05/20 17:30 10/09/20 08:16 Divalproex Sodium (Depakote Er) 250 mg QHS PO 10/05/20 21:00 10/06/20 18:27 DC Latanoprost (Xalatan) 1 drop QHS OU 10/05/20 21:00 Lisinopril (Prinivil) 10 mg DAILY PO 10/06/20 09:00 10/10/20 08:10 Melatonin (Melatonin) 3 mg QHS PO 10/05/20 21:00 10/05/20 19:34 Olanzapine (ZyPREXA) 10 mg QHS PO 10/05/20 21:00 10/06/20 19:55 DC 10/05/20 19:34 Non-Formulary Medication (Metformin Hcl ) 1,000 mg DAILYWBKFT PO 10/06/20 08:00 10/06/20 10:14 DC Atorvastatin Calcium (Lipitor) 5 mg QHS PO 10/05/20 21:00 Venlafaxine HCl (Effexor Xr) 37.5 mg DAILY PO 10/06/20 09:00 10/10/20 08:10 Metformin HCl (Glucophage Xr) 1,000 mg DAILYWBKFT PO 10/06/20 12:00 10/10/20 08:10 Risperidone (RisperDAL) 1 mg DAILY SL 10/06/20 20:00 10/08/20 17:08 DC 10/07/20 08:41 Valproic Acid (Depakene) 250 mg DAILY PO 10/06/20 20:00 10/08/20 17:08 DC Divalproex Sodium (Depakote Sprinkles) 500 mg DAILY PO 10/09/20 09:00 10/10/20 08:11 Risperidone (RisperDAL) 1.5 mg DAILY PO 10/09/20 09:00 10/10/20 16:20 DC 10/10/20 08:10 Risperidone (RisperDAL) 1.5 mg 1X ONCE PO 10/09/20 21:15 10/09/20 21:16 DC 10/09/20 21:15 Divalproex Sodium (Depakote Sprinkles) 500 mg 1X ONCE PO 10/09/20 21:15 10/09/20 21:16 DC 10/09/20 21:15 Risperidone (RisperDAL) 2 mg DAILY PO 10/11/20 09:00 Current Medications Medications (Trade) Dose Ordered Sig/Denise Route PRN Reason Start Time Stop Time Status Last Admin Dose Admin Risperidone (RisperDAL) 1.5 mg 1X ONCE PO 10/09/20 21:15 10/09/20 21:16 DC 10/09/20 21:15 Divalproex Sodium (Depakote Sprinkles) 500 mg 1X ONCE PO 10/09/20 21:15 10/09/20 21:16 DC 10/09/20 21:15 I have reviewed the current psychotropics carefully including drug interactions. Risk benefit ratio favors no change other than as noted in my dictated progress note. Diagnosis: Problems: (1) Schizoaffective disorder, bipolar type (2) Mild cognitive impairment (3) Bipolar disorder, current episode mixed, severe, with psychotic features (4) Anxiety disorder, unspecified (5) Impulse disorder, unspecified RHETT MATHEW MD Oct 10, 2020 20:48
[2020-10-10] MEDS: LATANOPROST 0.005% OPHTH SOLUTION 2.5ML BOTTLE. OU SCH (21:32)
[2020-10-10] MEDS: MELATONIN 3 MG TABLET PO SCH ×2 (21:33→21:39)
[2020-10-10] MEDS: ATORVASTATIN CALCIUM 10 MG TABLET. PO SCH ×2 (21:33→21:39)
[2020-10-11 06:03] VITALS: BP 147/65
[2020-10-11] MEDS: metFORMIN XR 500 MG TAB.ER.24H PO SCH (08:08)
[2020-10-11] MEDS: LISINOPRIL 10 MG TABLET PO SCH (08:08)
[2020-10-11] MEDS: VENLAFAXINE XR 37.5 MG CAP.ER.24H. PO SCH (08:08)
[2020-10-11] MEDS: NICOTINE 14MG PATCH. TD SCH (08:09)
[2020-10-11] MEDS: DIVALPROEX 125 MG CAP.SPRINK PO SCH (08:09)
[2020-10-11] MEDS: risperiDONE 2 MG TABLET. PO SCH (08:16)
--- NOTE | 2020-10-11 08:19 | PDOC ---
Exam Note: Jose Note: This note is a late entry for 10/10/2020 covers elements not covered in my initial note. Subjective: The patient was reviewed on telehealth rounds in the evening of 10/10/2020 with Ashwin CEBALLOS. Discussed with nursing staff, reviewed the chart. The patient slept 5-1/2 hours previous night. She has been refusing her psychotropics. She refused Risperdal and Depakote, took it later with much reluctance. She remains somewhat paranoid. I addressed this with her at length during the telehealth visit and she is agreeable to being compliant with her medications. We will increase the Risperdal to 2 mg h.s. but a rather rapid escalation within the context of her non-compliance might result in greater side effects which might reduce her cooperation in taking the medications even further. It has been a fine delicate balance trying to stabilize her. Valproic acid level is less than 3 again due to non-compliance. We will repeat a level in the morning since she did take the Depakote 500 mg today. Review of Systems: Ambulation impaired. No CV, , pulmonary, eye, ENT system symptoms on review. Mental Status Exam: The patient is reasonably oriented. Speech is coherent, a little pressured. Abstraction is fair. Computation is impaired. Language function is intact. She is still paranoid but less psychotic, more accepting of taking medications after I addressed with her. No suicidal or homicidal ideation. Laboratory Data: Reviewed. Impression: Schizoaffective disorder, bipolar type mixed with psychotic features. Mild cognitive impairment. Anxiety disorder unspecified. Impulse control disorder unspecified. Plan: As noted above with changes indicated above. Assessment: Vital Signs/I&O: Vital Signs Date Time Temp Pulse Resp B/P (MAP) Pulse Ox O2 Delivery O2 Flow Rate FiO2 10/11/20 08:08 103 147/65 10/11/20 06:03 99.0 20 98 Room Air I & O 10/10/20 10/10/20 10/11/20 15:00 23:00 07:00 Intake Total 580 ml 360 ml Balance 580 ml 360 ml Labs: Laboratory Tests Test 10/11/20 07:38 Glucose (Fingerstick) 120 mg/dL (70-99) H Current Medications: Meds: Laboratory Tests Test 10/11/20 07:38 Glucose (Fingerstick) 120 mg/dL Current Medications Medications (Trade) Dose Ordered Sig/Denise Route PRN Reason Start Time Stop Time Status Last Admin Dose Admin Acetaminophen (Tylenol) 650 mg PRN Q6HRS PRN PO MILD PAIN / TEMP > 100.3'F 10/05/20 16:45 Multi-Ingredient Ointment (Analgesic [place]) 1 uzair PRN QID PRN TP MUSCLE PAIN 10/05/20 16:45 Al Hydroxide/Mg Hydroxide (Mylanta Plus Xs) 15 ml PRN AFTMEALHC PRN PO DYSPEPSIA 10/05/20 16:45 Magnesium Hydroxide (Milk Of Magnesia) 2,400 mg PRN QHS PRN PO CONSTIPATION 10/05/20 16:45 Nicotine (Nicoderm Cq 14mg Patch) 1 patch DAILY TD 10/05/20 17:30 10/11/20 08:09 Divalproex Sodium (Depakote Er) 250 mg QHS PO 10/05/20 21:00 10/06/20 18:27 DC Latanoprost (Xalatan) 1 drop QHS OU 10/05/20 21:00 10/10/20 21:32 Lisinopril (Prinivil) 10 mg DAILY PO 10/06/20 09:00 10/11/20 08:08 Melatonin (Melatonin) 3 mg QHS PO 10/05/20 21:00 10/05/20 19:34 Olanzapine (ZyPREXA) 10 mg QHS PO 10/05/20 21:00 10/06/20 19:55 DC 10/05/20 19:34 Non-Formulary Medication (Metformin Hcl ) 1,000 mg DAILYWBKFT PO 10/06/20 08:00 10/06/20 10:14 DC Atorvastatin Calcium (Lipitor) 5 mg QHS PO 10/05/20 21:00 Venlafaxine HCl (Effexor Xr) 37.5 mg DAILY PO 10/06/20 09:00 10/11/20 08:08 Metformin HCl (Glucophage Xr) 1,000 mg DAILYWBKFT PO 10/06/20 12:00 10/11/20 08:08 Risperidone (RisperDAL) 1 mg DAILY SL 10/06/20 20:00 10/08/20 17:08 DC 10/07/20 08:41 Valproic Acid (Depakene) 250 mg DAILY PO 10/06/20 20:00 10/08/20 17:08 DC Divalproex Sodium (Depakote Sprinkles) 500 mg DAILY PO 10/09/20 09:00 10/11/20 08:09 Risperidone (RisperDAL) 1.5 mg DAILY PO 10/09/20 09:00 10/10/20 16:20 DC 10/10/20 08:10 Risperidone (RisperDAL) 1.5 mg 1X ONCE PO 10/09/20 21:15 10/09/20 21:16 DC 10/09/20 21:15 Divalproex Sodium (Depakote Sprinkles) 500 mg 1X ONCE PO 10/09/20 21:15 10/09/20 21:16 DC 10/09/20 21:15 Risperidone (RisperDAL) 2 mg DAILY PO 10/11/20 09:00 10/11/20 08:16 Current Medications Medications (Trade) Dose Ordered Sig/Denise Route PRN Reason Start Time Stop Time Status Last Admin Dose Admin Risperidone (RisperDAL) 2 mg DAILY PO 10/11/20 09:00 10/11/20 08:16 I have reviewed the current psychotropics carefully including drug interactions. Risk benefit ratio favors no change other than as noted in my dictated progress note. Diagnosis: Problems: (1) Schizoaffective disorder, bipolar type (2) Mild cognitive impairment (3) Bipolar disorder, current episode mixed, severe, with psychotic features (4) Anxiety disorder, unspecified (5) Impulse disorder, unspecified RHETT MATHEW MD Oct 11, 2020 08:19
[2020-10-11 10:16] LABS: VAL ACID 52 mcg/mL (50-100)
[2020-10-11 16:26] VITALS: BP 140/76
--- NOTE | 2020-10-11 20:54 | PDOC ---
Exam Note: Jose Note: Please also refer to the separate dictated note~for this date of service dictated separately.~Patient seen individually. Discussed the patient with Nursing staff reviewed the chart.~Reviewed interim history and current functioning. Reviewed vital signs,~Labs/ Radiology~and current medications noted below. Continue current treatment with the changes noted in the dictated addendum note Assessment: Vital Signs/I&O: Vital Signs Date Time Temp Pulse Resp B/P (MAP) Pulse Ox O2 Delivery O2 Flow Rate FiO2 10/11/20 16:26 97.6 100 18 140/76 (97) 90 10/11/20 06:03 Room Air I & O 10/10/20 10/10/20 10/11/20 15:00 23:00 07:00 Intake Total 580 ml 360 ml Balance 580 ml 360 ml Labs: Laboratory Tests Test 10/11/20 07:38 10/11/20 09:57 Glucose (Fingerstick) 120 mg/dL (70-99) H Valproic Acid Level 52 mcg/mL (50-100) Valproic Acid Last Dose Date 10/10/20 Valproic Acid Last Dose Time 2100 Current Medications: Meds: Laboratory Tests Test 10/11/20 07:38 10/11/20 09:57 Glucose (Fingerstick) 120 mg/dL Valproic Acid (Depakene) Level 52 mcg/mL Valproic Acid Last Dose Date 10/10/20 Valproic Acid Last Dose Time 2100 Current Medications Medications (Trade) Dose Ordered Sig/Denise Route PRN Reason Start Time Stop Time Status Last Admin Dose Admin Acetaminophen (Tylenol) 650 mg PRN Q6HRS PRN PO MILD PAIN / TEMP > 100.3'F 10/05/20 16:45 Multi-Ingredient Ointment (Analgesic [place]) 1 uzair PRN QID PRN TP MUSCLE PAIN 10/05/20 16:45 Al Hydroxide/Mg Hydroxide (Mylanta Plus Xs) 15 ml PRN AFTMEALHC PRN PO DYSPEPSIA 10/05/20 16:45 Magnesium Hydroxide (Milk Of Magnesia) 2,400 mg PRN QHS PRN PO CONSTIPATION 10/05/20 16:45 Nicotine (Nicoderm Cq 14mg Patch) 1 patch DAILY TD 10/05/20 17:30 10/11/20 08:09 Divalproex Sodium (Depakote Er) 250 mg QHS PO 10/05/20 21:00 10/06/20 18:27 DC Latanoprost (Xalatan) 1 drop QHS OU 10/05/20 21:00 10/10/20 21:32 Lisinopril (Prinivil) 10 mg DAILY PO 10/06/20 09:00 10/11/20 08:08 Melatonin (Melatonin) 3 mg QHS PO 10/05/20 21:00 10/05/20 19:34 Olanzapine (ZyPREXA) 10 mg QHS PO 10/05/20 21:00 10/06/20 19:55 DC 10/05/20 19:34 Non-Formulary Medication (Metformin Hcl ) 1,000 mg DAILYWBKFT PO 10/06/20 08:00 10/06/20 10:14 DC Atorvastatin Calcium (Lipitor) 5 mg QHS PO 10/05/20 21:00 Venlafaxine HCl (Effexor Xr) 37.5 mg DAILY PO 10/06/20 09:00 10/11/20 08:08 Metformin HCl (Glucophage Xr) 1,000 mg DAILYWBKFT PO 10/06/20 12:00 10/11/20 08:08 Risperidone (RisperDAL) 1 mg DAILY SL 10/06/20 20:00 10/08/20 17:08 DC 10/07/20 08:41 Valproic Acid (Depakene) 250 mg DAILY PO 10/06/20 20:00 10/08/20 17:08 DC Divalproex Sodium (Depakote Sprinkles) 500 mg DAILY PO 10/09/20 09:00 10/11/20 08:09 Risperidone (RisperDAL) 1.5 mg DAILY PO 10/09/20 09:00 10/10/20 16:20 DC 10/10/20 08:10 Risperidone (RisperDAL) 1.5 mg 1X ONCE PO 10/09/20 21:15 10/09/20 21:16 DC 10/09/20 21:15 Divalproex Sodium (Depakote Sprinkles) 500 mg 1X ONCE PO 10/09/20 21:15 10/09/20 21:16 DC 10/09/20 21:15 Risperidone (RisperDAL) 2 mg DAILY PO 10/11/20 09:00 10/11/20 08:16 Current Medications Medications (Trade) Dose Ordered Sig/Denise Route PRN Reason Start Time Stop Time Status Last Admin Dose Admin Risperidone (RisperDAL) 2 mg DAILY PO 10/11/20 09:00 10/11/20 08:16 I have reviewed the current psychotropics carefully including drug interactions. Risk benefit ratio favors no change other than as noted in my dictated progress note. Diagnosis: Problems: (1) Schizoaffective disorder, bipolar type (2) Anxiety disorder, unspecified (3) Mild cognitive impairment (4) Bipolar disorder, current episode mixed, severe, with psychotic features (5) Impulse disorder, unspecified RHETT MATHEW MD Oct 11, 2020 20:54
[2020-10-11] MEDS: MELATONIN 3 MG TABLET PO SCH (21:00)
[2020-10-11] MEDS: ATORVASTATIN CALCIUM 10 MG TABLET. PO SCH (21:00)
[2020-10-11] MEDS: LATANOPROST 0.005% OPHTH SOLUTION 2.5ML BOTTLE. OU SCH (21:00)
[2020-10-12 05:55] VITALS: BP 182/97
--- NOTE | 2020-10-12 08:07 | PDOC ---
Exam Note: Jose Note: This note is a late entry for 10/11/2020 covers elements not covered in my initial note. Subjective: The patient was seen face to face in the evening of 10/11/2020 with Cheyenne CEBALLOS. Discussed with nursing staff, reviewed the chart. The patient slept 5 hours previous night. She has been calmer, more appropriate, still somewhat paranoid, but less so than before. She has been noted talking to herself, sitting in her room but not acting up on this. She did receive her Risperdal oral today at 8.15 a.m. 2 mg. Review of Systems: Ambulation impaired. No CV, , pulmonary, eye, ENT system symptoms on review. Mental Status Exam: The patient is reasonably oriented. She is pleasant, interactive, and verbal as met with her late in the evening and she stated she was going to the nursing station to get her medications. Medication compliance is improved. Speech is coherent, a little pressured. Abstraction is fair. Computation is impaired. Language function is intact. No suicidal or homicidal ideation. Laboratory Data: Reviewed. Impression: Schizoaffective disorder, bipolar type mixed with psychotic features. Mild cognitive impairment. Anxiety disorder unspecified. Impulse control disorder unspecified. Plan: Continue current psychotropics. Risperdal has been increased. Adjust further as clinically indicated. Assessment: Vital Signs/I&O: Vital Signs Date Time Temp Pulse Resp B/P (MAP) Pulse Ox O2 Delivery O2 Flow Rate FiO2 10/12/20 05:55 97.4 93 22 182/97 (125) 93 Nasal Cannula 2.0 I & O 10/11/20 10/11/20 10/12/20 15:00 23:00 07:00 Intake Total 880 ml 1336 ml Balance 880 ml 1336 ml Labs: Laboratory Tests Test 10/11/20 09:57 10/12/20 07:33 Valproic Acid Level 52 mcg/mL (50-100) Valproic Acid Last Dose Date 10/10/20 Valproic Acid Last Dose Time 2100 Glucose (Fingerstick) 129 mg/dL (70-99) H Current Medications: Meds: Laboratory Tests Test 10/11/20 09:57 10/12/20 07:33 Valproic Acid (Depakene) Level 52 mcg/mL Valproic Acid Last Dose Date 10/10/20 Valproic Acid Last Dose Time 2100 Glucose (Fingerstick) 129 mg/dL Current Medications Medications (Trade) Dose Ordered Sig/Denise Route PRN Reason Start Time Stop Time Status Last Admin Dose Admin Acetaminophen (Tylenol) 650 mg PRN Q6HRS PRN PO MILD PAIN / TEMP > 100.3'F 10/05/20 16:45 Multi-Ingredient Ointment (Analgesic [place]) 1 uzair PRN QID PRN TP MUSCLE PAIN 10/05/20 16:45 Al Hydroxide/Mg Hydroxide (Mylanta Plus Xs) 15 ml PRN AFTMEALHC PRN PO DYSPEPSIA 10/05/20 16:45 Magnesium Hydroxide (Milk Of Magnesia) 2,400 mg PRN QHS PRN PO CONSTIPATION 10/05/20 16:45 Nicotine (Nicoderm Cq 14mg Patch) 1 patch DAILY TD 10/05/20 17:30 10/11/20 08:09 Divalproex Sodium (Depakote Er) 250 mg QHS PO 10/05/20 21:00 10/06/20 18:27 DC Latanoprost (Xalatan) 1 drop QHS OU 10/05/20 21:00 10/10/20 21:32 Lisinopril (Prinivil) 10 mg DAILY PO 10/06/20 09:00 10/11/20 08:08 Melatonin (Melatonin) 3 mg QHS PO 10/05/20 21:00 10/05/20 19:34 Olanzapine (ZyPREXA) 10 mg QHS PO 10/05/20 21:00 10/06/20 19:55 DC 10/05/20 19:34 Non-Formulary Medication (Metformin Hcl ) 1,000 mg DAILYWBKFT PO 10/06/20 08:00 10/06/20 10:14 DC Atorvastatin Calcium (Lipitor) 5 mg QHS PO 10/05/20 21:00 Venlafaxine HCl (Effexor Xr) 37.5 mg DAILY PO 10/06/20 09:00 10/11/20 08:08 Metformin HCl (Glucophage Xr) 1,000 mg DAILYWBKFT PO 10/06/20 12:00 10/11/20 08:08 Risperidone (RisperDAL) 1 mg DAILY SL 10/06/20 20:00 10/08/20 17:08 DC 10/07/20 08:41 Valproic Acid (Depakene) 250 mg DAILY PO 10/06/20 20:00 10/08/20 17:08 DC Divalproex Sodium (Depakote Sprinkles) 500 mg DAILY PO 10/09/20 09:00 10/11/20 08:09 Risperidone (RisperDAL) 1.5 mg DAILY PO 10/09/20 09:00 10/10/20 16:20 DC 10/10/20 08:10 Risperidone (RisperDAL) 1.5 mg 1X ONCE PO 10/09/20 21:15 10/09/20 21:16 DC 10/09/20 21:15 Divalproex Sodium (Depakote Sprinkles) 500 mg 1X ONCE PO 10/09/20 21:15 10/09/20 21:16 DC 10/09/20 21:15 Risperidone (RisperDAL) 2 mg DAILY PO 10/11/20 09:00 10/11/20 08:16 Current Medications Medications (Trade) Dose Ordered Sig/Denise Route PRN Reason Start Time Stop Time Status Last Admin Dose Admin Risperidone (RisperDAL) 2 mg DAILY PO 10/11/20 09:00 10/11/20 08:16 I have reviewed the current psychotropics carefully including drug interactions. Risk benefit ratio favors no change other than as noted in my dictated progress note. Diagnosis: Problems: (1) Schizoaffective disorder, bipolar type (2) Mild cognitive impairment (3) Bipolar disorder, current episode mixed, severe, with psychotic features (4) Anxiety disorder, unspecified (5) Impulse disorder, unspecified RHETT MATHEW MD Oct 12, 2020 08:07
[2020-10-12] MEDS: DIVALPROEX 125 MG CAP.SPRINK PO SCH (08:29)
[2020-10-12] MEDS: metFORMIN XR 500 MG TAB.ER.24H PO SCH (08:30)
[2020-10-12] MEDS: VENLAFAXINE XR 37.5 MG CAP.ER.24H. PO SCH (08:30)
[2020-10-12] MEDS: LISINOPRIL 10 MG TABLET PO SCH (08:30)
[2020-10-12] MEDS: risperiDONE 2 MG TABLET. PO SCH (08:30)
[2020-10-12] MEDS: NICOTINE 14MG PATCH. TD SCH ×2 (08:31→09:00)
[2020-10-12] MEDS: ATORVASTATIN CALCIUM 10 MG TABLET. PO SCH (20:16)
[2020-10-12] MEDS: LATANOPROST 0.005% OPHTH SOLUTION 2.5ML BOTTLE. OU SCH (20:16)
[2020-10-12] MEDS: MELATONIN 3 MG TABLET PO SCH (20:16)
--- NOTE | 2020-10-12 21:26 | PDOC ---
Exam Note: Jose Note: Please also refer to the separate dictated note~for this date of service dictated separately.~Patient seen individually. Discussed the patient with Nursing staff reviewed the chart.~Reviewed interim history and current functioning. Reviewed vital signs,~Labs/ Radiology~and current medications noted below. Continue current treatment with the changes noted in the dictated addendum note Assessment: Vital Signs/I&O: Vital Signs Date Time Temp Pulse Resp B/P (MAP) Pulse Ox O2 Delivery O2 Flow Rate FiO2 10/12/20 15:56 97.6 91 20 91 Room Air 10/12/20 05:55 2.0 I & O 10/11/20 10/11/20 10/12/20 15:00 23:00 07:00 Intake Total 880 ml 1336 ml Balance 880 ml 1336 ml Labs: Laboratory Tests Test 10/12/20 07:33 Glucose (Fingerstick) 129 mg/dL (70-99) H Current Medications: Meds: Laboratory Tests Test 10/12/20 07:33 Glucose (Fingerstick) 129 mg/dL Current Medications Medications (Trade) Dose Ordered Sig/Denise Route PRN Reason Start Time Stop Time Status Last Admin Dose Admin Acetaminophen (Tylenol) 650 mg PRN Q6HRS PRN PO MILD PAIN / TEMP > 100.3'F 10/05/20 16:45 Multi-Ingredient Ointment (Analgesic [place]) 1 uzair PRN QID PRN TP MUSCLE PAIN 10/05/20 16:45 Al Hydroxide/Mg Hydroxide (Mylanta Plus Xs) 15 ml PRN AFTMEALHC PRN PO DYSPEPSIA 10/05/20 16:45 Magnesium Hydroxide (Milk Of Magnesia) 2,400 mg PRN QHS PRN PO CONSTIPATION 10/05/20 16:45 Nicotine (Nicoderm Cq 14mg Patch) 1 patch DAILY TD 10/05/20 17:30 10/11/20 08:09 Divalproex Sodium (Depakote Er) 250 mg QHS PO 10/05/20 21:00 10/06/20 18:27 DC Latanoprost (Xalatan) 1 drop QHS OU 10/05/20 21:00 10/12/20 20:16 Lisinopril (Prinivil) 10 mg DAILY PO 10/06/20 09:00 10/12/20 08:30 Melatonin (Melatonin) 3 mg QHS PO 10/05/20 21:00 10/12/20 20:16 Olanzapine (ZyPREXA) 10 mg QHS PO 10/05/20 21:00 10/06/20 19:55 DC 10/05/20 19:34 Non-Formulary Medication (Metformin Hcl ) 1,000 mg DAILYWBKFT PO 10/06/20 08:00 10/06/20 10:14 DC Atorvastatin Calcium (Lipitor) 5 mg QHS PO 10/05/20 21:00 10/12/20 20:16 Venlafaxine HCl (Effexor Xr) 37.5 mg DAILY PO 10/06/20 09:00 10/12/20 08:30 Metformin HCl (Glucophage Xr) 1,000 mg DAILYWBKFT PO 10/06/20 12:00 10/12/20 08:30 Risperidone (RisperDAL) 1 mg DAILY SL 10/06/20 20:00 10/08/20 17:08 DC 10/07/20 08:41 Valproic Acid (Depakene) 250 mg DAILY PO 10/06/20 20:00 10/08/20 17:08 DC Divalproex Sodium (Depakote Sprinkles) 500 mg DAILY PO 10/09/20 09:00 10/12/20 08:29 Risperidone (RisperDAL) 1.5 mg DAILY PO 10/09/20 09:00 10/10/20 16:20 DC 10/10/20 08:10 Risperidone (RisperDAL) 1.5 mg 1X ONCE PO 10/09/20 21:15 10/09/20 21:16 DC 10/09/20 21:15 Divalproex Sodium (Depakote Sprinkles) 500 mg 1X ONCE PO 10/09/20 21:15 10/09/20 21:16 DC 10/09/20 21:15 Risperidone (RisperDAL) 2 mg DAILY PO 10/11/20 09:00 10/12/20 08:30 Risperidone (RisperDAL) 1 mg DAILY SL 10/13/20 09:00 I have reviewed the current psychotropics carefully including drug interactions. Risk benefit ratio favors no change other than as noted in my dictated progress note. Diagnosis: Problems: (1) Schizoaffective disorder, bipolar type (2) Mild cognitive impairment (3) Bipolar disorder, current episode mixed, severe, with psychotic features (4) Impulse disorder, unspecified (5) Anxiety disorder, unspecified RHETT MATHEW MD Oct 12, 2020 21:26
[2020-10-13 06:00] VITALS: BP 160/84
[2020-10-13] MEDS: DIVALPROEX 125 MG CAP.SPRINK PO SCH (07:45)
[2020-10-13] MEDS: risperiDONE 2 MG TABLET. PO SCH ×2 (07:45→09:00)
[2020-10-13] MEDS: metFORMIN XR 500 MG TAB.ER.24H PO SCH (07:45)
[2020-10-13] MEDS: VENLAFAXINE XR 37.5 MG CAP.ER.24H. PO SCH (07:45)
[2020-10-13] MEDS: NICOTINE 14MG PATCH. TD SCH (07:46)
[2020-10-13] MEDS: LISINOPRIL 10 MG TABLET PO SCH (07:46)
[2020-10-13] MEDS: risperiDONE ORAL 1 MG/ML 30ml BOTTLE. SL SCH (08:07)
[2020-10-13 17:37] VITALS: BP 111/61
[2020-10-13] MEDS: ATORVASTATIN CALCIUM 10 MG TABLET. PO SCH (20:17)
[2020-10-13] MEDS: MELATONIN 3 MG TABLET PO SCH (20:17)
[2020-10-13] MEDS: LATANOPROST 0.005% OPHTH SOLUTION 2.5ML BOTTLE. OU SCH (20:18)
--- NOTE | 2020-10-13 20:48 | PDOC ---
Exam Note: Jose Note: Please also refer to the separate dictated note~for this date of service dictated separately.~Patient seen individually. Discussed the patient with Nursing staff reviewed the chart.~Reviewed interim history and current functioning. Reviewed vital signs,~Labs/ Radiology~and current medications noted below. Continue current treatment with the changes noted in the dictated addendum note Assessment: Vital Signs/I&O: Vital Signs Date Time Temp Pulse Resp B/P (MAP) Pulse Ox O2 Delivery O2 Flow Rate FiO2 10/13/20 17:37 98.3 97 18 111/61 (78) 90 10/13/20 06:00 Room Air 10/12/20 05:55 2.0 I & O 0 10/12/20 10/12/20 10/13/20 15:00 23:00 07:00 Intake Total 600 ml 480 ml Balance 600 ml 480 ml Labs: Laboratory Tests Test 10/13/20 07:27 Glucose (Fingerstick) 108 mg/dL (70-99) H Current Medications: Meds: Laboratory Tests Test 10/13/20 07:27 Glucose (Fingerstick) 108 mg/dL Current Medications Medications (Trade) Dose Ordered Sig/Denise Route PRN Reason Start Time Stop Time Status Last Admin Dose Admin Acetaminophen (Tylenol) 650 mg PRN Q6HRS PRN PO MILD PAIN / TEMP > 100.3'F 10/05/20 16:45 Multi-Ingredient Ointment (Analgesic [place]) 1 uzair PRN QID PRN TP MUSCLE PAIN 10/05/20 16:45 Al Hydroxide/Mg Hydroxide (Mylanta Plus Xs) 15 ml PRN AFTMEALHC PRN PO DYSPEPSIA 10/05/20 16:45 Magnesium Hydroxide (Milk Of Magnesia) 2,400 mg PRN QHS PRN PO CONSTIPATION 10/05/20 16:45 Nicotine (Nicoderm Cq 14mg Patch) 1 patch DAILY TD 10/05/20 17:30 10/11/20 08:09 Divalproex Sodium (Depakote Er) 250 mg QHS PO 10/05/20 21:00 10/06/20 18:27 DC Latanoprost (Xalatan) 1 drop QHS OU 10/05/20 21:00 10/12/20 20:16 Lisinopril (Prinivil) 10 mg DAILY PO 10/06/20 09:00 10/13/20 07:46 Melatonin (Melatonin) 3 mg QHS PO 10/05/20 21:00 10/13/20 20:17 Olanzapine (ZyPREXA) 10 mg QHS PO 10/05/20 21:00 10/06/20 19:55 DC 10/05/20 19:34 Non-Formulary Medication (Metformin Hcl ) 1,000 mg DAILYWBKFT PO 10/06/20 08:00 10/06/20 10:14 DC Atorvastatin Calcium (Lipitor) 5 mg QHS PO 10/05/20 21:00 10/12/20 20:16 Venlafaxine HCl (Effexor Xr) 37.5 mg DAILY PO 10/06/20 09:00 10/13/20 07:45 Metformin HCl (Glucophage Xr) 1,000 mg DAILYWBKFT PO 10/06/20 12:00 10/13/20 07:45 Risperidone (RisperDAL) 1 mg DAILY SL 10/06/20 20:00 10/08/20 17:08 DC 10/07/20 08:41 Valproic Acid (Depakene) 250 mg DAILY PO 10/06/20 20:00 10/08/20 17:08 DC Divalproex Sodium (Depakote Sprinkles) 500 mg DAILY PO 10/09/20 09:00 10/13/20 07:45 Risperidone (RisperDAL) 1.5 mg DAILY PO 10/09/20 09:00 10/10/20 16:20 DC 10/10/20 08:10 Risperidone (RisperDAL) 1.5 mg 1X ONCE PO 10/09/20 21:15 10/09/20 21:16 DC 10/09/20 21:15 Divalproex Sodium (Depakote Sprinkles) 500 mg 1X ONCE PO 10/09/20 21:15 10/09/20 21:16 DC 10/09/20 21:15 Risperidone (RisperDAL) 2 mg DAILY PO 10/11/20 09:00 10/12/20 08:30 Risperidone (RisperDAL) 1 mg DAILY SL 10/13/20 09:00 10/13/20 08:07 Current Medications Medications (Trade) Dose Ordered Sig/Denise Route PRN Reason Start Time Stop Time Status Last Admin Dose Admin Risperidone (RisperDAL) 1 mg DAILY SL 10/13/20 09:00 10/13/20 08:07 I have reviewed the current psychotropics carefully including drug interactions. Risk benefit ratio favors no change other than as noted in my dictated progress note. Diagnosis: Problems: (1) Schizoaffective disorder, bipolar type (2) Mild cognitive impairment (3) Bipolar disorder, current episode mixed, severe, with psychotic features (4) Anxiety disorder, unspecified (5) Impulse disorder, unspecified RHETT MATHEW MD Oct 13, 2020 20:48
[2020-10-14] MEDS ORDERED: ACET325T21 PO (03:06)
[2020-10-14] MEDS ORDERED: MAG355OR44 PO (03:08)
[2020-10-14] MEDS ORDERED: MAGN24003 PO (03:09)
[2020-10-14] MEDS ORDERED: METH28OI2 TP (03:10)
[2020-10-14] MEDS ORDERED: NICO1PAT25 TP (03:11)
[2020-10-14] MEDS ORDERED: RISP1TAB88 PO (03:12)
[2020-10-14 06:17] VITALS: BP 148/85
[2020-10-14] MEDS: VENLAFAXINE XR 37.5 MG CAP.ER.24H. PO SCH (07:39)
[2020-10-14] MEDS: DIVALPROEX 125 MG CAP.SPRINK PO SCH (07:39)
[2020-10-14] MEDS: risperiDONE 2 MG TABLET. PO SCH (07:39)
[2020-10-14] MEDS: metFORMIN XR 500 MG TAB.ER.24H PO SCH (07:39)
[2020-10-14] MEDS: LISINOPRIL 10 MG TABLET PO SCH (07:39)
[2020-10-14] MEDS: NICOTINE 14MG PATCH. TD SCH (07:39)
--- NOTE | 2020-10-14 08:50 | PDOC ---
Exam Note: Jose Note: This note is a late entry for 10/12/2020 covers elements not covered in my initial note. Subjective: The patient was seen face to face in the evening of 10/12/2020 with Nory CEBALLOS. Discussed with nursing staff, reviewed the chart. The patient slept 4-1/4 hours previous night. She refused her h.s. medications even after the daughter talked to her. I had a lengthy discussion with her about medication compliance. She wants her medications written out and handed to her so that she is aware of what she is taking and why and then she promises me she will take it and be compliant with it. I have discussed this with Rodney CEBALLOS who will arrange this. She often refuses her oral tablets of Risperdal and we are increasing it from 2 mg a day of the tablets. We will add another 1 mg a day of Risperdal liquid with the expectation and hope that even if refuses the tablets she will at least get some of her liquid Risperdal mixed in food and fluids to help with her psychotic symptoms. Review of Systems: Ambulation impaired. No CV, , pulmonary, eye, ENT system symptoms on review. Mental Status Exam: The patient is alert and oriented. Speech is coherent, less pressured. Abstraction is fair. Computation is impaired. Language function is intact, less paranoid. No suicidal or homicidal ideation, somewhat distractible. Laboratory Data: Reviewed. Impression: Schizoaffective disorder, bipolar type mixed with psychotic features. Mild cognitive impairment. Anxiety disorder unspecified. Impulse control disorder unspecified. Plan: As noted above. Additionally, her valproic acid level is significantly subtherapeutic due to noncompliance but our major focus is going to be with the Risperdal as an antipsychotic and the mood stabilizer Depakote can be worked on after that even as an outpatient. Assessment: Vital Signs/I&O: Vital Signs Date Time Temp Pulse Resp B/P (MAP) Pulse Ox O2 Delivery O2 Flow Rate FiO2 10/14/20 07:39 81 148/85 10/14/20 06:17 97.4 21 93 Nasal Cannula 2.0 I & O 0 10/13/20 10/13/20 10/14/20 15:00 23:00 07:00 Intake Total 580 ml 600 ml Balance 580 ml 600 ml Labs: Laboratory Tests Test 10/14/20 07:35 Glucose (Fingerstick) 113 mg/dL (70-99) H Current Medications: Meds: Laboratory Tests Test 10/14/20 07:35 Glucose (Fingerstick) 113 mg/dL Current Medications Medications (Trade) Dose Ordered Sig/Denise Route PRN Reason Start Time Stop Time Status Last Admin Dose Admin Acetaminophen (Tylenol) 650 mg PRN Q6HRS PRN PO MILD PAIN / TEMP > 100.3'F 10/05/20 16:45 Multi-Ingredient Ointment (Analgesic [place]) 1 uzair PRN QID PRN TP MUSCLE PAIN 10/05/20 16:45 Al Hydroxide/Mg Hydroxide (Mylanta Plus Xs) 15 ml PRN AFTMEALHC PRN PO DYSPEPSIA 10/05/20 16:45 Magnesium Hydroxide (Milk Of Magnesia) 2,400 mg PRN QHS PRN PO CONSTIPATION 10/05/20 16:45 Nicotine (Nicoderm Cq 14mg Patch) 1 patch DAILY TD 10/05/20 17:30 10/11/20 08:09 Divalproex Sodium (Depakote Er) 250 mg QHS PO 10/05/20 21:00 10/06/20 18:27 DC Latanoprost (Xalatan) 1 drop QHS OU 10/05/20 21:00 10/12/20 20:16 Lisinopril (Prinivil) 10 mg DAILY PO 10/06/20 09:00 10/14/20 07:39 Melatonin (Melatonin) 3 mg QHS PO 10/05/20 21:00 10/13/20 20:17 Olanzapine (ZyPREXA) 10 mg QHS PO 10/05/20 21:00 10/06/20 19:55 DC 10/05/20 19:34 Non-Formulary Medication (Metformin Hcl ) 1,000 mg DAILYWBKFT PO 10/06/20 08:00 10/06/20 10:14 DC Atorvastatin Calcium (Lipitor) 5 mg QHS PO 10/05/20 21:00 10/12/20 20:16 Venlafaxine HCl (Effexor Xr) 37.5 mg DAILY PO 10/06/20 09:00 10/14/20 07:39 Metformin HCl (Glucophage Xr) 1,000 mg DAILYWBKFT PO 10/06/20 12:00 10/14/20 07:39 Risperidone (RisperDAL) 1 mg DAILY SL 10/06/20 20:00 10/08/20 17:08 DC 10/07/20 08:41 Valproic Acid (Depakene) 250 mg DAILY PO 10/06/20 20:00 10/08/20 17:08 DC Divalproex Sodium (Depakote Sprinkles) 500 mg DAILY PO 10/09/20 09:00 10/14/20 07:39 Risperidone (RisperDAL) 1.5 mg DAILY PO 10/09/20 09:00 10/10/20 16:20 DC 10/10/20 08:10 Risperidone (RisperDAL) 1.5 mg 1X ONCE PO 10/09/20 21:15 10/09/20 21:16 DC 10/09/20 21:15 Divalproex Sodium (Depakote Sprinkles) 500 mg 1X ONCE PO 10/09/20 21:15 10/09/20 21:16 DC 10/09/20 21:15 Risperidone (RisperDAL) 2 mg DAILY PO 10/11/20 09:00 10/14/20 07:39 Risperidone (RisperDAL) 1 mg DAILY SL 10/13/20 09:00 10/13/20 08:07 Current Medications Medications (Trade) Dose Ordered Sig/Denise Route PRN Reason Start Time Stop Time Status Last Admin Dose Admin Risperidone (RisperDAL) 1 mg DAILY SL 10/13/20 09:00 10/13/20 08:07 I have reviewed the current psychotropics carefully including drug interactions. Risk benefit ratio favors no change other than as noted in my dictated progress note. Diagnosis: Problems: (1) Schizoaffective disorder, bipolar type (2) Mild cognitive impairment (3) Bipolar disorder, current episode mixed, severe, with psychotic features (4) Anxiety disorder, unspecified (5) Impulse disorder, unspecified RHETT MATHEW MD Oct 14, 2020 08:50
[2020-10-14] MEDS: risperiDONE ORAL 1 MG/ML 30ml BOTTLE. SL SCH (09:00)
--- NOTE | 2020-10-14 09:11 | PDOC ---
Exam Note: Jose Note: This note is a late entry for 10/13/2020 covers elements not covered in my initial note. Subjective: The patient was seen face to face in the evening of 10/13/2020 with Nory CEBALLOS. Discussed with nursing staff, reviewed the chart. The patient slept 3-1/4 hours previous night. She refused her medications previous night and again was refusing today but did get the Risperdal liquid mixed in hard chocolate that she had requested earlier. She was somewhat sedated by the time I saw her in the evening after she had received the Risperdal. She still remains relatively uncooperative with taking her psychotropics. I did review the patient with the physician reviewer from [facility] and the patient was denied for the hospitalization. She does sit in a room and talk to herself but is not having command hallucinations. Given the fact that she is at home, being cared by the family and the fact that she had a very recent psychiatric inpatient hospitalization and just today one day back home and she had to be readmitted I feel she does need to be stabilized for her psychosis and being cooperative with medications before she is discharged. Roshni Haddad, social media project manager is going to be appealing the denial. Review of Systems: Positive for some tiredness. Ambulation impaired. No CV, , pulmonary, eye, ENT system symptoms on review. Mental Status Exam: The patient is reasonably oriented. Speech has some latency, coherent. Abstraction is fair. Computation is impaired. Language function is intact. Mood and affect withdrawn, paranoid suspicious, talking to herself as I stood outside her room before I went in to meet with her. No suicidal or homicidal ideation. Laboratory Data: Reviewed. Impression: Schizoaffective disorder, bipolar type mixed with psychotic features. Anxiety disorder unspecified. Impulse control disorder unspecified. Plan: Continue psychotropics from initial note. Encourage compliance and I had a lengthy discussion about this with her regarding compliance. She agrees to be compliant but then when it actually comes to taking medications she often dec lines. Assessment: Vital Signs/I&O: Vital Signs Date Time Temp Pulse Resp B/P (MAP) Pulse Ox O2 Delivery O2 Flow Rate FiO2 10/14/20 07:39 81 148/85 10/14/20 06:17 97.4 21 93 Nasal Cannula 2.0 I & O 110/13/20 10/14/20 15:00 23:00 07:00 Intake Total 580 ml 600 ml Balance 580 ml 600 ml Labs: Laboratory Tests Test 10/14/20 07:35 Glucose (Fingerstick) 113 mg/dL (70-99) H Current Medications: Meds: Laboratory Tests Test 10/14/20 07:35 Glucose (Fingerstick) 113 mg/dL Current Medications Medications (Trade) Dose Ordered Sig/Denise Route PRN Reason Start Time Stop Time Status Last Admin Dose Admin Acetaminophen (Tylenol) 650 mg PRN Q6HRS PRN PO MILD PAIN / TEMP > 100.3'F 10/05/20 16:45 Multi-Ingredient Ointment (Analgesic [place]) 1 uzair PRN QID PRN TP MUSCLE PAIN 10/05/20 16:45 Al Hydroxide/Mg Hydroxide (Mylanta Plus Xs) 15 ml PRN AFTMEALHC PRN PO DYSPEPSIA 10/05/20 16:45 Magnesium Hydroxide (Milk Of Magnesia) 2,400 mg PRN QHS PRN PO CONSTIPATION 10/05/20 16:45 Nicotine (Nicoderm Cq 14mg Patch) 1 patch DAILY TD 10/05/20 17:30 10/11/20 08:09 Divalproex Sodium (Depakote Er) 250 mg QHS PO 10/05/20 21:00 10/06/20 18:27 DC Latanoprost (Xalatan) 1 drop QHS OU 10/05/20 21:00 10/12/20 20:16 Lisinopril (Prinivil) 10 mg DAILY PO 10/06/20 09:00 10/14/20 07:39 Melatonin (Melatonin) 3 mg QHS PO 10/05/20 21:00 10/13/20 20:17 Olanzapine (ZyPREXA) 10 mg QHS PO 10/05/20 21:00 10/06/20 19:55 DC 10/05/20 19:34 Non-Formulary Medication (Metformin Hcl ) 1,000 mg DAILYWBKFT PO 10/06/20 08:00 10/06/20 10:14 DC Atorvastatin Calcium (Lipitor) 5 mg QHS PO 10/05/20 21:00 10/12/20 20:16 Venlafaxine HCl (Effexor Xr) 37.5 mg DAILY PO 10/06/20 09:00 10/14/20 07:39 Metformin HCl (Glucophage Xr) 1,000 mg DAILYWBKFT PO 10/06/20 12:00 10/14/20 07:39 Risperidone (RisperDAL) 1 mg DAILY SL 10/06/20 20:00 10/08/20 17:08 DC 10/07/20 08:41 Valproic Acid (Depakene) 250 mg DAILY PO 10/06/20 20:00 10/08/20 17:08 DC Divalproex Sodium (Depakote Sprinkles) 500 mg DAILY PO 10/09/20 09:00 10/14/20 07:39 Risperidone (RisperDAL) 1.5 mg DAILY PO 10/09/20 09:00 10/10/20 16:20 DC 10/10/20 08:10 Risperidone (RisperDAL) 1.5 mg 1X ONCE PO 10/09/20 21:15 10/09/20 21:16 DC 10/09/20 21:15 Divalproex Sodium (Depakote Sprinkles) 500 mg 1X ONCE PO 10/09/20 21:15 10/09/20 21:16 DC 10/09/20 21:15 Risperidone (RisperDAL) 2 mg DAILY PO 10/11/20 09:00 10/14/20 07:39 Risperidone (RisperDAL) 1 mg DAILY SL 10/13/20 09:00 10/13/20 08:07 I have reviewed the current psychotropics carefully including drug interactions. Risk benefit ratio favors no change other than as noted in my dictated progress note. Diagnosis: Problems: (1) Schizoaffective disorder, bipolar type (2) Mild cognitive impairment (3) Bipolar disorder, current episode mixed, severe, with psychotic features (4) Anxiety disorder, unspecified (5) Impulse disorder, unspecified RHETT MATHEW MD Oct 14, 2020 09:11
--- NOTE | 2020-10-14 15:28 | TX PLAN ---
Interdisciplinary Tx Plan Admission Information Oct 05, 2020 at 16:15 Legal Status (on Admission): Voluntary DPOA/Guardian Name: Lolis Yip Contact Verified Code Status: Full Code Allergies: Coded Allergies: morphine (Verified Allergy, Intermediate, Unknown, 10/09/20) Diagnoses Primary Diagnosis: Schizoaffective D/O with psychosis; Major Neurocognitive D/O, Vascular Alzheimers with delusions, depression, and behavioral disturbance Reasons for Admission: Delusions, Sig. Change Sleep, Combative, Suspicious/paranoid, Poor impulse control, Other Problem in Patient's Words: Her behaviors continue to increase over the years and is non-compliant with medications. Additional Admission Comments: According to the intake, pt has insomnia, paranoid, delusional and refusing meds. Pt was found on her neighbors porch after wandering away from home, beligerent, uncooperative, screaming at others, combative. Problems Active Problems: Non-compliant with medications delusional verbal aggression periods of combativeness withdrawn to room Inactive Problems: Up ad asba Self-toilets Pt Strengths/Limitations Ability for Gregg: Poor Cognitive Functioning/Ability: Fair Communication Skills/Ability: Fair Financial Resources: Fair Insight/Judgement: Poor Intellectual Ability: Fair Physical Health: Fair Social Skills: Poor Stability in Family: Good Stability in School/Work: Poor Verbal Skills: Fair Discharge Criteria Discharge Criteria: Able meet basic life need, Adequate arrangements @DC, Improved behavior, Improved mood/thought Preliminary Discharge Plan Preliminary DC Plan: Current Living Arrange. Special Precautions Fall Risk: Low Initial D/C Plan Pt to return back home with her caregiver once stable. Identified Discharge Needs: Home healthcare Psychiatric services Case Management Currently Utilized Resources Currently Utilized Resources/P: Primary Care Physician Caregiver in the home Referrals Community Resources: Psychiatric services Case Management Identified Problems/Hx/Goals Objectives/Short-Term Goals Short Term Goals: Dec. Aggression, Dec. Hallucination/Delus, Dec. Outbursts, Medication Stabilization, Promote Coping Skill Short Term Goals in Patient's: N/A Interventions/Frequency Staff Interventions/Frequency&: Psychiatrist to assess pt at least 3x per week for medication management. Social Work to assess pt at least 2x per week for recognizing potential barriers to care and discharge planning. Nursing to assess medication effects, behavioral management and completion of 15 minute checks daily. Encourage group participation in activities (if applicable) or 1:1 engagement based off Activity Dept goals. 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 Education: Pt graduated high school (12th grade), received her associates and went on to receive her Bachelors but never finished the last semester of school. Pt is unsure as to what degree pt was striving for. Community Follow-up Primary Care Physician Psychiatry referral Case management referral Community Provider/Family Inpu: A lot of concerns about medications and fear for restraints in which SW assured pt dtr that restraints are illegal and are not an option on this unit. Pt dtr wants good care and a better quality of life for pt once she is able to return home for [facility]. Treatment Plan Explained Patient/Customer Service Voice had this treatment plan explained to him/her as indicated by the signature below and has been given the opportunity to ask questions and make suggestions: Date: Patient/Customer Service Voice Signature: Status Update Update Pt is sleeping on average 5 hours per night and eating roughly 100% of meals. Pt continues to select certain medications and consistently refusing the Depakote and the Risperdal despite attempts from the staff and psychiatrist educating her. Nursing has been crushing her meds and mixing them in her hot chocolate which she tends to drink it all. Pt can be irritable at times and does continue to have hallucinations, as evidenced by talking to someone who is not there and some times yelling when no one is in her room. Pt dtr has requested that an appeal be completed as [facility] has denied pt stay since October 12. ANITA will continue to work with pt dtr and set up all appropriate services for discharge. With the appeal in process, pt is not able to discharge once the decision has been made, which can take up to 72 hours. JASPER DIGGS Oct 14, 2020 15:27
[2020-10-14 15:37] VITALS: BP 128/85
[2020-10-14] MEDS: MELATONIN 3 MG TABLET PO SCH (19:44)
[2020-10-14] MEDS: LATANOPROST 0.005% OPHTH SOLUTION 2.5ML BOTTLE. OU SCH (19:44)
[2020-10-14] MEDS: ATORVASTATIN CALCIUM 10 MG TABLET. PO SCH (19:44)
--- NOTE | 2020-10-14 21:01 | PDOC ---
Exam Note: Jose Note: Please also refer to the separate dictated note~for this date of service dictated separately.~Patient seen individually. Discussed the patient with Nursing staff reviewed the chart.~Reviewed interim history and current functioning. Reviewed vital signs,~Labs/ Radiology~and current medications noted below. Continue current treatment with the changes noted in the dictated addendum note Assessment: Vital Signs/I&O: Vital Signs Date Time Temp Pulse Resp B/P (MAP) Pulse Ox O2 Delivery O2 Flow Rate FiO2 10/14/20 15:37 97.8 94 22 128/85 (99) 93 10/14/20 06:17 Nasal Cannula 2.0 I & O 10/13/20 10/13/20 10/14/20 15:00 23:00 07:00 Intake Total 580 ml 600 ml Balance 580 ml 600 ml Labs: Laboratory Tests Test 10/14/20 07:35 Glucose (Fingerstick) 113 mg/dL (70-99) H Current Medications: Meds: Laboratory Tests Test 10/14/20 07:35 Glucose (Fingerstick) 113 mg/dL Current Medications Medications (Trade) Dose Ordered Sig/Denise Route PRN Reason Start Time Stop Time Status Last Admin Dose Admin Acetaminophen (Tylenol) 650 mg PRN Q6HRS PRN PO MILD PAIN / TEMP > 100.3'F 10/05/20 16:45 Multi-Ingredient Ointment (Analgesic [place]) 1 uzair PRN QID PRN TP MUSCLE PAIN 10/05/20 16:45 Al Hydroxide/Mg Hydroxide (Mylanta Plus Xs) 15 ml PRN AFTMEALHC PRN PO DYSPEPSIA 10/05/20 16:45 Magnesium Hydroxide (Milk Of Magnesia) 2,400 mg PRN QHS PRN PO CONSTIPATION 10/05/20 16:45 Nicotine (Nicoderm Cq 14mg Patch) 1 patch DAILY TD 10/05/20 17:30 10/11/20 08:09 Divalproex Sodium (Depakote Er) 250 mg QHS PO 10/05/20 21:00 10/06/20 18:27 DC Latanoprost (Xalatan) 1 drop QHS OU 10/05/20 21:00 10/12/20 20:16 Lisinopril (Prinivil) 10 mg DAILY PO 10/06/20 09:00 10/14/20 07:39 Melatonin (Melatonin) 3 mg QHS PO 10/05/20 21:00 10/14/20 19:44 Olanzapine (ZyPREXA) 10 mg QHS PO 10/05/20 21:00 10/06/20 19:55 DC 10/05/20 19:34 Non-Formulary Medication (Metformin Hcl ) 1,000 mg DAILYWBKFT PO 10/06/20 08:00 10/06/20 10:14 DC Atorvastatin Calcium (Lipitor) 5 mg QHS PO 10/05/20 21:00 10/14/20 19:44 Venlafaxine HCl (Effexor Xr) 37.5 mg DAILY PO 10/06/20 09:00 10/14/20 07:39 Metformin HCl (Glucophage Xr) 1,000 mg DAILYWBKFT PO 10/06/20 12:00 10/14/20 07:39 Risperidone (RisperDAL) 1 mg DAILY SL 10/06/20 20:00 10/08/20 17:08 DC 10/07/20 08:41 Valproic Acid (Depakene) 250 mg DAILY PO 10/06/20 20:00 10/08/20 17:08 DC Divalproex Sodium (Depakote Sprinkles) 500 mg DAILY PO 10/09/20 09:00 10/14/20 07:39 Risperidone (RisperDAL) 1.5 mg DAILY PO 10/09/20 09:00 10/10/20 16:20 DC 10/10/20 08:10 Risperidone (RisperDAL) 1.5 mg 1X ONCE PO 10/09/20 21:15 10/09/20 21:16 DC 10/09/20 21:15 Divalproex Sodium (Depakote Sprinkles) 500 mg 1X ONCE PO 10/09/20 21:15 10/09/20 21:16 DC 10/09/20 21:15 Risperidone (RisperDAL) 2 mg DAILY PO 10/11/20 09:00 10/14/20 07:39 Risperidone (RisperDAL) 1 mg DAILY SL 10/13/20 09:00 10/13/20 08:07 I have reviewed the current psychotropics carefully including drug interactions. Risk benefit ratio favors no change other than as noted in my dictated progress note. Diagnosis: Problems: (1) Schizoaffective disorder, bipolar type (2) Mild cognitive impairment (3) Bipolar disorder, current episode mixed, severe, with psychotic features (4) Anxiety disorder, unspecified (5) Impulse disorder, unspecified RHETT MATHEW MD Oct 14, 2020 21:01
[2020-10-14] MEDS: MIRTAZAPINE 7.5 MG TABLET. PO SCH (23:03)
[2020-10-15 06:00] VITALS: BP 161/81
--- NOTE | 2020-10-15 07:27 | PDOC ---
Exam Note: Jose Note: This note is a late entry for 10/14/2020 covers elements not covered in my initial note. Subjective: The patient was seen face to face in the morning of 10/14/2020 for a treatment team meeting with Roshni Haddad and Indu (social work professor), Maryellen Sadler, activity therapy and Nory CEBALLOS. Discussed with nursing staff, reviewed the chart. The patient slept 3 hours previous night. The patient refused her medications previous night. During the night she stays up and continues to have regular rapid conversation with herself seem to be hallucinating. She did take her Risperdal during the day today in hot chocolate. Review of Systems: Ambulation impaired. No CV, , pulmonary, eye, ENT system symptoms on review. Mental Status Exam: The patient is reasonably oriented. I met with her in her room in the evening. Speech is coherent, rapid at times. Abstraction is fair. Computation is impaired. Language function is intact. She remains paranoid. We discussed medication compliance at length. No suicidal or homicidal ideation. Laboratory Data: Reviewed. Impression: Schizoaffective disorder, bipolar type mixed with psychotic features. Anxiety disorder unspecified. Impulse control disorder unspecified. Plan: Continue current psychotropics. Encourage compliance. Start Remeron 7.5 mg h.s. for her ongoing insomnia which should help some with anxiety as well. Adjust further as clinically indicated. Assessment: Vital Signs/I&O: Vital Signs Date Time Temp Pulse Resp B/P (MAP) Pulse Ox O2 Delivery O2 Flow Rate FiO2 10/15/20 06:00 97.2 84 20 161/81 (107) 92 Nasal Cannula 2.0 I & O 10/14/20 10/14/20 10/15/20 15:00 23:00 07:00 Intake Total 720 ml 580 ml Balance 720 ml 580 ml Labs: Laboratory Tests Test 10/14/20 07:35 Glucose (Fingerstick) 113 mg/dL (70-99) H Current Medications: Meds: Laboratory Tests Test 10/14/20 07:35 Glucose (Fingerstick) 113 mg/dL Current Medications Medications (Trade) Dose Ordered Sig/Denise Route PRN Reason Start Time Stop Time Status Last Admin Dose Admin Acetaminophen (Tylenol) 650 mg PRN Q6HRS PRN PO MILD PAIN / TEMP > 100.3'F 10/05/20 16:45 Multi-Ingredient Ointment (Analgesic [place]) 1 uzair PRN QID PRN TP MUSCLE PAIN 10/05/20 16:45 Al Hydroxide/Mg Hydroxide (Mylanta Plus Xs) 15 ml PRN AFTMEALHC PRN PO DYSPEPSIA 10/05/20 16:45 Magnesium Hydroxide (Milk Of Magnesia) 2,400 mg PRN QHS PRN PO CONSTIPATION 10/05/20 16:45 Nicotine (Nicoderm Cq 14mg Patch) 1 patch DAILY TD 10/05/20 17:30 10/11/20 08:09 Divalproex Sodium (Depakote Er) 250 mg QHS PO 10/05/20 21:00 10/06/20 18:27 DC Latanoprost (Xalatan) 1 drop QHS OU 10/05/20 21:00 10/12/20 20:16 Lisinopril (Prinivil) 10 mg DAILY PO 10/06/20 09:00 10/14/20 07:39 Melatonin (Melatonin) 3 mg QHS PO 10/05/20 21:00 10/14/20 19:44 Olanzapine (ZyPREXA) 10 mg QHS PO 10/05/20 21:00 10/06/20 19:55 DC 10/05/20 19:34 Non-Formulary Medication (Metformin Hcl ) 1,000 mg DAILYWBKFT PO 10/06/20 08:00 10/06/20 10:14 DC Atorvastatin Calcium (Lipitor) 5 mg QHS PO 10/05/20 21:00 10/14/20 19:44 Venlafaxine HCl (Effexor Xr) 37.5 mg DAILY PO 10/06/20 09:00 10/14/20 07:39 Metformin HCl (Glucophage Xr) 1,000 mg DAILYWBKFT PO 10/06/20 12:00 10/14/20 07:39 Risperidone (RisperDAL) 1 mg DAILY SL 10/06/20 20:00 10/08/20 17:08 DC 10/07/20 08:41 Valproic Acid (Depakene) 250 mg DAILY PO 10/06/20 20:00 10/08/20 17:08 DC Divalproex Sodium (Depakote Sprinkles) 500 mg DAILY PO 10/09/20 09:00 10/14/20 07:39 Risperidone (RisperDAL) 1.5 mg DAILY PO 10/09/20 09:00 10/10/20 16:20 DC 10/10/20 08:10 Risperidone (RisperDAL) 1.5 mg 1X ONCE PO 10/09/20 21:15 10/09/20 21:16 DC 10/09/20 21:15 Divalproex Sodium (Depakote Sprinkles) 500 mg 1X ONCE PO 10/09/20 21:15 10/09/20 21:16 DC 10/09/20 21:15 Risperidone (RisperDAL) 2 mg DAILY PO 10/11/20 09:00 10/14/20 07:39 Risperidone (RisperDAL) 1 mg DAILY SL 10/13/20 09:00 10/13/20 08:07 Mirtazapine (Remeron) 7.5 mg QHS PO 10/14/20 22:45 10/14/20 23:03 Current Medications Medications (Trade) Dose Ordered Sig/Denise Route PRN Reason Start Time Stop Time Status Last Admin Dose Admin Mirtazapine (Remeron) 7.5 mg QHS PO 10/14/20 22:45 10/14/20 23:03 I have reviewed the current psychotropics carefully including drug interactions. Risk benefit ratio favors no change other than as noted in my dictated progress note. Diagnosis: Problems: (1) Schizoaffective disorder, bipolar type (2) Mild cognitive impairment (3) Bipolar disorder, current episode mixed, severe, with psychotic features (4) Anxiety disorder, unspecified (5) Impulse disorder, unspecified RHETT MATHEW MD Oct 15, 2020 07:27
[2020-10-15] MEDS: VENLAFAXINE XR 37.5 MG CAP.ER.24H. PO SCH (07:50)
[2020-10-15] MEDS: NICOTINE 14MG PATCH. TD SCH ×2 (07:50→09:00)
[2020-10-15] MEDS: risperiDONE ORAL 1 MG/ML 30ml BOTTLE. SL SCH (07:50)
[2020-10-15] MEDS: risperiDONE 2 MG TABLET. PO SCH (07:51)
[2020-10-15] MEDS: LISINOPRIL 10 MG TABLET PO SCH (07:51)
[2020-10-15] MEDS: metFORMIN XR 500 MG TAB.ER.24H PO SCH (07:51)
[2020-10-15] MEDS: DIVALPROEX 125 MG CAP.SPRINK PO SCH (07:51)
[2020-10-15] MEDS ORDERED: NICOTINE 14MG PATCH. TD PRN (09:15)
[2020-10-15 10:26] LABS: BASO % 1 % (0-3); EOS # 0.1 x10^3/uL (0.0-0.7); EOS % 2 % (0-3); HEMATOCRIT 33.2 % (36.0-47.0); HEMOGLOBIN 10.3 g/dL (12.0-15.5); LYMPH # 1.2 x10^3/uL (1.0-4.8); LYMPH % 21 % (24-48); MEAN CORPUSCULAR HEMOGLOBIN 29 pg (25-35); MEAN CORPUSCULAR HGB CONC 31 g/dL (31-37); MEAN CORPUSCULAR VOLUME 92 fL (79-100); MONO # 0.8 x10^3/uL (0.0-1.1); MONO % 14 % (0-9); NEUT # 3.5 x10^3uL (1.8-7.7); NEUT % 63 % (31-73); PLATELET COUNT 234 x10^3/uL (140-400); RED BLOOD COUNT 3.62 x10^6/uL (3.50-5.40); RED CELL DISTRIBUTION WIDTH 13.9 % (11.5-14.5); WHITE BLOOD COUNT 5.5 x10^3/uL (4.0-11.0)
[2020-10-15 10:27] LABS: ALBUMIN 3.1 g/dL (3.4-5.0); ALBUMIN/GLOBULIN RATIO 0.6 (1.0-1.7); CALCIUM 8.7 mg/dL (8.5-10.1); CREATININE 0.6 mg/dL (0.6-1.0); GFR 118.6; POTASSIUM 4.3 mmol/L (3.5-5.1); TOTAL BILIRUBIN 0.1 mg/dL (0.2-1.0); TOTAL PROTEIN 8.1 g/dL (6.4-8.2)
[2020-10-15 16:08] VITALS: BP 124/80
[2020-10-15] MEDS: MELATONIN 3 MG TABLET PO SCH (20:11)
[2020-10-15] MEDS: MIRTAZAPINE 7.5 MG TABLET. PO SCH (20:11)
[2020-10-15] MEDS: ATORVASTATIN CALCIUM 10 MG TABLET. PO SCH (20:11)
[2020-10-15] MEDS: LATANOPROST 0.005% OPHTH SOLUTION 2.5ML BOTTLE. OU SCH (21:00)
--- NOTE | 2020-10-15 21:04 | PDOC ---
Exam Note: Jose Note: Please also refer to the separate dictated note~for this date of service dictated separately.~Patient seen individually. Discussed the patient with Nursing staff reviewed the chart.~Reviewed interim history and current functioning. Reviewed vital signs,~Labs/ Radiology~and current medications noted below. Continue current treatment with the changes noted in the dictated addendum note Assessment: Vital Signs/I&O: Vital Signs Date Time Temp Pulse Resp B/P (MAP) Pulse Ox O2 Delivery O2 Flow Rate FiO2 10/15/20 16:08 97.6 90 22 124/80 (95) 97 Nasal Cannula 3.0 I & O 10/14/20 10/14/20 10/15/20 15:00 23:00 07:00 Intake Total 720 ml 580 ml Balance 720 ml 580 ml Labs: Laboratory Tests Test 10/15/20 07:39 10/15/20 10:03 Glucose (Fingerstick) 120 mg/dL (70-99) H White Blood Count 5.5 x10^3/uL (4.0-11.0) Red Blood Count 3.62 x10^6/uL (3.50-5.40) Hemoglobin 10.3 g/dL (12.0-15.5) L Hematocrit 33.2 % (36.0-47.0) L Mean Corpuscular Volume 92 fL (79-100) Mean Corpuscular Hemoglobin 29 pg (25-35) Mean Corpuscular Hemoglobin Concent 31 g/dL (31-37) Red Cell Distribution Width 13.9 % (11.5-14.5) Platelet Count 234 x10^3/uL (140-400) Neutrophils (%) (Auto) 63 % (31-73) Lymphocytes (%) (Auto) 21 % (24-48) L Monocytes (%) (Auto) 14 % (0-9) H Eosinophils (%) (Auto) 2 % (0-3) Basophils (%) (Auto) 1 % (0-3) Neutrophils # (Auto) 3.5 x10^3uL (1.8-7.7) Lymphocytes # (Auto) 1.2 x10^3/uL (1.0-4.8) Monocytes # (Auto) 0.8 x10^3/uL (0.0-1.1) Eosinophils # (Auto) 0.1 x10^3/uL (0.0-0.7) Basophils # (Auto) 0.0 x10^3/uL (0.0-0.2) Sodium Level 136 mmol/L (136-145) Potassium Level 4.3 mmol/L (3.5-5.1) Chloride Level 97 mmol/L (98-107) L Carbon Dioxide Level 39 mmol/L (21-32) H Anion Gap 0 (6-14) L Blood Urea Nitrogen 10 mg/dL (7-20) Creatinine 0.6 mg/dL (0.6-1.0) Estimated GFR (Cockcroft-Gault) 118.6 BUN/Creatinine Ratio 17 (6-20) Glucose Level 237 mg/dL (70-99) H Calcium Level 8.7 mg/dL (8.5-10.1) Total Bilirubin 0.1 mg/dL (0.2-1.0) L Aspartate Amino Transferase (AST) 22 U/L (15-37) Alanine Aminotransferase (ALT) 25 U/L (14-59) Alkaline Phosphatase 62 U/L (46-116) Total Protein 8.1 g/dL (6.4-8.2) Albumin 3.1 g/dL (3.4-5.0) L Albumin/Globulin Ratio 0.6 (1.0-1.7) L Current Medications: Meds: Laboratory Tests Test 10/15/20 07:39 10/15/20 10:03 Glucose (Fingerstick) 120 mg/dL White Blood Count 5.5 x10^3/uL Red Blood Count 3.62 x10^6/uL Hemoglobin 10.3 g/dL Hematocrit 33.2 % Mean Corpuscular Volume 92 fL Mean Corpuscular Hemoglobin 29 pg Mean Corpuscular Hemoglobin Concent 31 g/dL Red Cell Distribution Width 13.9 % Platelet Count 234 x10^3/uL Neutrophils (%) (Auto) 63 % Lymphocytes (%) (Auto) 21 % Monocytes (%) (Auto) 14 % Eosinophils (%) (Auto) 2 % Basophils (%) (Auto) 1 % Neutrophils # (Auto) 3.5 x10^3uL Lymphocytes # (Auto) 1.2 x10^3/uL Monocytes # (Auto) 0.8 x10^3/uL Eosinophils # (Auto) 0.1 x10^3/uL Basophils # (Auto) 0.0 x10^3/uL Sodium Level 136 mmol/L Potassium Level 4.3 mmol/L Chloride Level 97 mmol/L Carbon Dioxide Level 39 mmol/L Anion Gap 0 Blood Urea Nitrogen 10 mg/dL Creatinine 0.6 mg/dL Estimated GFR (Cockcroft-Gault) 118.6 BUN/Creatinine Ratio 17 Glucose Level 237 mg/dL Calcium Level 8.7 mg/dL Total Bilirubin 0.1 mg/dL Aspartate Amino Transf (AST/SGOT) 22 U/L Alanine Aminotransferase (ALT/SGPT) 25 U/L Alkaline Phosphatase 62 U/L Total Protein 8.1 g/dL Albumin 3.1 g/dL Albumin/Globulin Ratio 0.6 Current Medications Medications (Trade) Dose Ordered Sig/Denise Route PRN Reason Start Time Stop Time Status Last Admin Dose Admin Acetaminophen (Tylenol) 650 mg PRN Q6HRS PRN PO MILD PAIN / TEMP > 100.3'F 10/05/20 16:45 Multi-Ingredient Ointment (Analgesic [place]) 1 uzair PRN QID PRN TP MUSCLE PAIN 10/05/20 16:45 Al Hydroxide/Mg Hydroxide (Mylanta Plus Xs) 15 ml PRN AFTMEALHC PRN PO DYSPEPSIA 10/05/20 16:45 Magnesium Hydroxide (Milk Of Magnesia) 2,400 mg PRN QHS PRN PO CONSTIPATION 10/05/20 16:45 Nicotine (Nicoderm Cq 14mg Patch) 1 patch DAILY TD 10/05/20 17:30 10/15/20 09:07 DC 10/11/20 08:09 Divalproex Sodium (Depakote Er) 250 mg QHS PO 10/05/20 21:00 10/06/20 18:27 DC Latanoprost (Xalatan) 1 drop QHS OU 10/05/20 21:00 10/12/20 20:16 Lisinopril (Prinivil) 10 mg DAILY PO 10/06/20 09:00 10/15/20 07:51 Melatonin (Melatonin) 3 mg QHS PO 10/05/20 21:00 10/15/20 20:11 Olanzapine (ZyPREXA) 10 mg QHS PO 10/05/20 21:00 10/06/20 19:55 DC 10/05/20 19:34 Non-Formulary Medication (Metformin Hcl ) 1,000 mg DAILYWBKFT PO 10/06/20 08:00 10/06/20 10:14 DC Atorvastatin Calcium (Lipitor) 5 mg QHS PO 10/05/20 21:00 10/15/20 20:11 Venlafaxine HCl (Effexor Xr) 37.5 mg DAILY PO 10/06/20 09:00 10/15/20 07:50 Metformin HCl (Glucophage Xr) 1,000 mg DAILYWBKFT PO 10/06/20 12:00 10/15/20 07:51 Risperidone (RisperDAL) 1 mg DAILY SL 10/06/20 20:00 10/08/20 17:08 DC 10/07/20 08:41 Valproic Acid (Depakene) 250 mg DAILY PO 10/06/20 20:00 10/08/20 17:08 DC Divalproex Sodium (Depakote Sprinkles) 500 mg DAILY PO 10/09/20 09:00 10/15/20 07:51 Risperidone (RisperDAL) 1.5 mg DAILY PO 10/09/20 09:00 10/10/20 16:20 DC 10/10/20 08:10 Risperidone (RisperDAL) 1.5 mg 1X ONCE PO 10/09/20 21:15 10/09/20 21:16 DC 10/09/20 21:15 Divalproex Sodium (Depakote Sprinkles) 500 mg 1X ONCE PO 10/09/20 21:15 10/09/20 21:16 DC 10/09/20 21:15 Risperidone (RisperDAL) 2 mg DAILY PO 10/11/20 09:00 10/15/20 07:51 Risperidone (RisperDAL) 1 mg DAILY SL 10/13/20 09:00 10/15/20 07:50 Mirtazapine (Remeron) 7.5 mg QHS PO 10/14/20 22:45 10/15/20 20:11 Nicotine (Nicoderm Cq 14mg Patch) 1 patch PRN DAILY PRN TD SMOKING CESSATION 10/15/20 09:15 Current Medications Medications (Trade) Dose Ordered Sig/Denise Route PRN Reason Start Time Stop Time Status Last Admin Dose Admin Mirtazapine (Remeron) 7.5 mg QHS PO 10/14/20 22:45 10/15/20 20:11 I have reviewed the current psychotropics carefully including drug interactions. Risk benefit ratio favors no change other than as noted in my dictated progress note. Diagnosis: Problems: (1) Schizoaffective disorder, bipolar type (2) Mild cognitive impairment (3) Bipolar disorder, current episode mixed, severe, with psychotic features (4) Anxiety disorder, unspecified (5) Impulse disorder, unspecified RHETT MATHEW MD Oct 15, 2020 21:04
[2020-10-16 06:03] VITALS: BP 142/73
[2020-10-16] MEDS: metFORMIN XR 500 MG TAB.ER.24H PO SCH (07:43)
[2020-10-16] MEDS: LISINOPRIL 10 MG TABLET PO SCH (07:43)
[2020-10-16] MEDS: DIVALPROEX 125 MG CAP.SPRINK PO SCH (07:44)
[2020-10-16] MEDS: VENLAFAXINE XR 37.5 MG CAP.ER.24H. PO SCH (07:44)
[2020-10-16] MEDS: risperiDONE 2 MG TABLET. PO SCH (07:44)
[2020-10-16] MEDS: risperiDONE ORAL 1 MG/ML 30ml BOTTLE. SL SCH (07:45)
[2020-10-16 15:00] VITALS: BP 140/80
[2020-10-16] MEDS: LATANOPROST 0.005% OPHTH SOLUTION 2.5ML BOTTLE. OU SCH (19:35)
[2020-10-16] MEDS: ATORVASTATIN CALCIUM 10 MG TABLET. PO SCH (19:38)
[2020-10-16] MEDS: MIRTAZAPINE 7.5 MG TABLET. PO SCH (19:38)
--- NOTE | 2020-10-16 20:58 | PDOC ---
Exam Note: Jose Note: Please also refer to the separate dictated note~for this date of service dictated separately.~Patient seen individually. Discussed the patient with Nursing staff reviewed the chart.~Reviewed interim history and current functioning. Reviewed vital signs,~Labs/ Radiology~and current medications noted below. Continue current treatment with the changes noted in the dictated addendum note Assessment: Vital Signs/I&O: Vital Signs Date Time Temp Pulse Resp B/P (MAP) Pulse Ox O2 Delivery O2 Flow Rate FiO2 10/16/20 15:00 97.4 86 18 140/80 (100) 95 Room Air 10/16/20 06:03 3.0 I & O 10/15/20 10/15/20 10/16/20 14:59 22:59 06:59 Intake Total 480 ml 360 ml Balance 480 ml 360 ml Labs: Laboratory Tests Test 10/16/20 07:41 Glucose (Fingerstick) 94 mg/dL (70-99) Current Medications: Meds: Laboratory Tests Test 10/16/20 07:41 Glucose (Fingerstick) 94 mg/dL Current Medications Medications (Trade) Dose Ordered Sig/Denise Route PRN Reason Start Time Stop Time Status Last Admin Dose Admin Acetaminophen (Tylenol) 650 mg PRN Q6HRS PRN PO MILD PAIN / TEMP > 100.3'F 10/05/20 16:45 Multi-Ingredient Ointment (Analgesic [place]) 1 uzair PRN QID PRN TP MUSCLE PAIN 10/05/20 16:45 Al Hydroxide/Mg Hydroxide (Mylanta Plus Xs) 15 ml PRN AFTMEALHC PRN PO DYSPEPSIA 10/05/20 16:45 Magnesium Hydroxide (Milk Of Magnesia) 2,400 mg PRN QHS PRN PO CONSTIPATION 10/05/20 16:45 Nicotine (Nicoderm Cq 14mg Patch) 1 patch DAILY TD 10/05/20 17:30 10/15/20 09:07 DC 10/11/20 08:09 Divalproex Sodium (Depakote Er) 250 mg QHS PO 10/05/20 21:00 10/06/20 18:27 DC Latanoprost (Xalatan) 1 drop QHS OU 10/05/20 21:00 10/16/20 19:35 Lisinopril (Prinivil) 10 mg DAILY PO 10/06/20 09:00 10/16/20 07:43 Melatonin (Melatonin) 3 mg QHS PO 10/05/20 21:00 10/15/20 20:11 Olanzapine (ZyPREXA) 10 mg QHS PO 10/05/20 21:00 10/06/20 19:55 DC 10/05/20 19:34 Non-Formulary Medication (Metformin Hcl ) 1,000 mg DAILYWBKFT PO 10/06/20 08:00 10/06/20 10:14 DC Atorvastatin Calcium (Lipitor) 5 mg QHS PO 10/05/20 21:00 10/16/20 19:38 Venlafaxine HCl (Effexor Xr) 37.5 mg DAILY PO 10/06/20 09:00 10/16/20 07:44 Metformin HCl (Glucophage Xr) 1,000 mg DAILYWBKFT PO 10/06/20 12:00 10/16/20 07:43 Risperidone (RisperDAL) 1 mg DAILY SL 10/06/20 20:00 10/08/20 17:08 DC 10/07/20 08:41 Valproic Acid (Depakene) 250 mg DAILY PO 10/06/20 20:00 10/08/20 17:08 DC Divalproex Sodium (Depakote Sprinkles) 500 mg DAILY PO 10/09/20 09:00 10/16/20 07:44 Risperidone (RisperDAL) 1.5 mg DAILY PO 10/09/20 09:00 10/10/20 16:20 DC 10/10/20 08:10 Risperidone (RisperDAL) 1.5 mg 1X ONCE PO 10/09/20 21:15 10/09/20 21:16 DC 10/09/20 21:15 Divalproex Sodium (Depakote Sprinkles) 500 mg 1X ONCE PO 10/09/20 21:15 10/09/20 21:16 DC 10/09/20 21:15 Risperidone (RisperDAL) 2 mg DAILY PO 10/11/20 09:00 10/16/20 07:44 Risperidone (RisperDAL) 1 mg DAILY SL 10/13/20 09:00 10/15/20 07:50 Mirtazapine (Remeron) 7.5 mg QHS PO 10/14/20 22:45 10/16/20 19:38 Nicotine (Nicoderm Cq 14mg Patch) 1 patch PRN DAILY PRN TD SMOKING CESSATION 10/15/20 09:15 I have reviewed the current psychotropics carefully including drug interactions. Risk benefit ratio favors no change other than as noted in my dictated progress note. Diagnosis: Problems: (1) Schizoaffective disorder, bipolar type (2) Mild cognitive impairment (3) Bipolar disorder, current episode mixed, severe, with psychotic features (4) Anxiety disorder, unspecified (5) Impulse disorder, unspecified RHETT MATHEW MD Oct 16, 2020 20:58
[2020-10-16] MEDS: MELATONIN 3 MG TABLET PO SCH (21:00)
[2020-10-17 06:24] VITALS: BP 157/86
[2020-10-17] MEDS: DIVALPROEX 125 MG CAP.SPRINK PO SCH (07:43)
[2020-10-17] MEDS: risperiDONE ORAL 1 MG/ML 30ml BOTTLE. SL SCH (07:44)
[2020-10-17] MEDS: LISINOPRIL 10 MG TABLET PO SCH (07:44)
[2020-10-17] MEDS: risperiDONE 2 MG TABLET. PO SCH (07:44)
[2020-10-17] MEDS: metFORMIN XR 500 MG TAB.ER.24H PO SCH (07:44)
[2020-10-17] MEDS: VENLAFAXINE XR 37.5 MG CAP.ER.24H. PO SCH (07:44)
[2020-10-17 16:32] VITALS: BP 117/54
[2020-10-17] MEDS: ATORVASTATIN CALCIUM 10 MG TABLET. PO SCH (20:43)
[2020-10-17] MEDS: LATANOPROST 0.005% OPHTH SOLUTION 2.5ML BOTTLE. OU SCH (20:43)
[2020-10-17] MEDS: MIRTAZAPINE 7.5 MG TABLET. PO SCH (20:44)
[2020-10-17] MEDS: MELATONIN 3 MG TABLET PO SCH (20:44)
--- NOTE | 2020-10-17 20:50 | PDOC ---
Exam Note: Jose Note: This note is a late entry for 10/15/2020 covers elements not covered in my initial note. Subjective: The patient was seen face to face in the evening of 10/15/2020 with Hilaria CEBALLOS. Discussed with nursing staff, reviewed the chart. The patient slept 4 hours previous night. The patient remains quite resistive to taking her Risperdal and Depakote. Nevertheless she did get 2 dosages in hot chocolate. When she is in her room she is constantly talking to herself, continues to be somewhat hyperverbal, other times seems anxious, depressed. Review of Systems: No CV, , pulmonary, eye, ENT system symptoms on review. Mental Status Exam: The patient is reasonably oriented. Speech is coherent, rapid at times. Abstraction is fair. Computation is impaired. Language function is intact. Attention span is short. Mood and affect remains labile and she remains psychotic. No suicidal or homicidal ideation. Laboratory Data: Reviewed. Impression: Schizoaffective disorder, bipolar type mixed with psychotic features. Anxiety disorder unspecified. Impulse control disorder unspecified. Plan: Continue to encourage compliance with her medications. Her Risperdal has been increased total of 3 mg a day, 2 mg tablet and 1 mg liquid in case she does not take the tablet, the liquid can be mixed in food and fluids. She remains on Depakote but her compliance is being quite intermittent and level remains subtherapeutic on account of this. Continue rest of the psychotropics Assessment: Vital Signs/I&O: Vital Signs Date Time Temp Pulse Resp B/P (MAP) Pulse Ox O2 Delivery O2 Flow Rate FiO2 10/17/20 16:32 97.2 70 22 117/54 (75) 92 3.0 10/17/20 06:24 Nasal Cannula I & O 10/16/20 10/16/20 10/17/20 15:00 23:00 07:00 Intake Total 480 ml 640 ml Balance 480 ml 640 ml Labs: Laboratory Tests Test 10/17/20 07:39 Glucose (Fingerstick) 173 mg/dL (70-99) H Current Medications: Meds: Laboratory Tests Test 10/17/20 07:39 Glucose (Fingerstick) 173 mg/dL Current Medications Medications (Trade) Dose Ordered Sig/Denise Route PRN Reason Start Time Stop Time Status Last Admin Dose Admin Acetaminophen (Tylenol) 650 mg PRN Q6HRS PRN PO MILD PAIN / TEMP > 100.3'F 10/05/20 16:45 Multi-Ingredient Ointment (Analgesic [place]) 1 uzair PRN QID PRN TP MUSCLE PAIN 10/05/20 16:45 Al Hydroxide/Mg Hydroxide (Mylanta Plus Xs) 15 ml PRN AFTMEALHC PRN PO DYSPEPSIA 10/05/20 16:45 Magnesium Hydroxide (Milk Of Magnesia) 2,400 mg PRN QHS PRN PO CONSTIPATION 10/05/20 16:45 Nicotine (Nicoderm Cq 14mg Patch) 1 patch DAILY TD 10/05/20 17:30 10/15/20 09:07 DC 10/11/20 08:09 Divalproex Sodium (Depakote Er) 250 mg QHS PO 10/05/20 21:00 10/06/20 18:27 DC Latanoprost (Xalatan) 1 drop QHS OU 10/05/20 21:00 10/17/20 20:43 Lisinopril (Prinivil) 10 mg DAILY PO 10/06/20 09:00 10/17/20 07:44 Melatonin (Melatonin) 3 mg QHS PO 10/05/20 21:00 10/17/20 20:44 Olanzapine (ZyPREXA) 10 mg QHS PO 10/05/20 21:00 10/06/20 19:55 DC 10/05/20 19:34 Non-Formulary Medication (Metformin Hcl ) 1,000 mg DAILYWBKFT PO 10/06/20 08:00 10/06/20 10:14 DC Atorvastatin Calcium (Lipitor) 5 mg QHS PO 10/05/20 21:00 10/17/20 20:43 Venlafaxine HCl (Effexor Xr) 37.5 mg DAILY PO 10/06/20 09:00 10/17/20 07:44 Metformin HCl (Glucophage Xr) 1,000 mg DAILYWBKFT PO 10/06/20 12:00 10/17/20 07:44 Risperidone (RisperDAL) 1 mg DAILY SL 10/06/20 20:00 10/08/20 17:08 DC 10/07/20 08:41 Valproic Acid (Depakene) 250 mg DAILY PO 10/06/20 20:00 10/08/20 17:08 DC Divalproex Sodium (Depakote Sprinkles) 500 mg DAILY PO 10/09/20 09:00 10/17/20 07:43 Risperidone (RisperDAL) 1.5 mg DAILY PO 10/09/20 09:00 10/10/20 16:20 DC 10/10/20 08:10 Risperidone (RisperDAL) 1.5 mg 1X ONCE PO 10/09/20 21:15 10/09/20 21:16 DC 10/09/20 21:15 Divalproex Sodium (Depakote Sprinkles) 500 mg 1X ONCE PO 10/09/20 21:15 10/09/20 21:16 DC 10/09/20 21:15 Risperidone (RisperDAL) 2 mg DAILY PO 10/11/20 09:00 10/17/20 07:44 Risperidone (RisperDAL) 1 mg DAILY SL 10/13/20 09:00 10/15/20 07:50 Mirtazapine (Remeron) 7.5 mg QHS PO 10/14/20 22:45 10/17/20 20:44 Nicotine (Nicoderm Cq 14mg Patch) 1 patch PRN DAILY PRN TD SMOKING CESSATION 10/15/20 09:15 I have reviewed the current psychotropics carefully including drug interactions. Risk benefit ratio favors no change other than as noted in my dictated progress note. Diagnosis: Problems: (1) Schizoaffective disorder, bipolar type (2) Mild cognitive impairment (3) Bipolar disorder, current episode mixed, severe, with psychotic features (4) Anxiety disorder, unspecified (5) Impulse disorder, unspecified RHETT MATHEW MD Oct 17, 2020 20:50
--- NOTE | 2020-10-17 21:25 | PDOC ---
Exam Note: Jose Note: This note is a late entry for 10/16/2020 covers elements not covered in my initial note. Subjective: The patient was seen face to face in the evening of 10/16/2020 with Hilaria CEBALLOS. Discussed with nursing staff, reviewed the chart. The patient slept 5-1/2 previous night. Appetite is fair. She did get 2 mg Risperdal again today which is an improvement and Depakote as well mixed in her hot chocolate. She is talking non-stop sitting in her room per nursing report. Review of Systems: Ambulation impaired. No CV, , pulmonary, eye, ENT system symptoms on review. Mental Status Exam: The patient is oriented to herself and situation. Speech is coherent, rapid at times. Abstraction is fair. Computation is impaired. Language function is intact. She remains psychotic. No suicidal or homicidal ideation. Laboratory Data: Reviewed. Impression: Schizoaffective disorder, bipolar type mixed with psychotic features. Anxiety disorder unspecified. Impulse control disorder unspecified. Plan: Continue current psychotropics. Risperdal is at a fairly reasonable do niharika for her. We are attempting to adjust the Depakene compliance to get therapeutic level. Assessment: Vital Signs/I&O: Vital Signs Date Time Temp Pulse Resp B/P (MAP) Pulse Ox O2 Delivery O2 Flow Rate FiO2 10/17/20 16:32 97.2 70 22 117/54 (75) 92 3.0 10/17/20 06:24 Nasal Cannula I & O 10/16/20 10/16/20 10/17/20 15:00 23:00 07:00 Intake Total 480 ml 640 ml Balance 480 ml 640 ml Labs: Laboratory Tests Test 10/17/20 07:39 Glucose (Fingerstick) 173 mg/dL (70-99) H Current Medications: Meds: Laboratory Tests Test 10/17/20 07:39 Glucose (Fingerstick) 173 mg/dL Current Medications Medications (Trade) Dose Ordered Sig/Denise Route PRN Reason Start Time Stop Time Status Last Admin Dose Admin Acetaminophen (Tylenol) 650 mg PRN Q6HRS PRN PO MILD PAIN / TEMP > 100.3'F 10/05/20 16:45 Multi-Ingredient Ointment (Analgesic [place]) 1 uzair PRN QID PRN TP MUSCLE PAIN 10/05/20 16:45 Al Hydroxide/Mg Hydroxide (Mylanta Plus Xs) 15 ml PRN AFTMEALHC PRN PO DYSPEPSIA 10/05/20 16:45 Magnesium Hydroxide (Milk Of Magnesia) 2,400 mg PRN QHS PRN PO CONSTIPATION 10/05/20 16:45 Nicotine (Nicoderm Cq 14mg Patch) 1 patch DAILY TD 10/05/20 17:30 10/15/20 09:07 DC 10/11/20 08:09 Divalproex Sodium (Depakote Er) 250 mg QHS PO 10/05/20 21:00 10/06/20 18:27 DC Latanoprost (Xalatan) 1 drop QHS OU 10/05/20 21:00 10/17/20 20:43 Lisinopril (Prinivil) 10 mg DAILY PO 10/06/20 09:00 10/17/20 07:44 Melatonin (Melatonin) 3 mg QHS PO 10/05/20 21:00 10/17/20 20:44 Olanzapine (ZyPREXA) 10 mg QHS PO 10/05/20 21:00 10/06/20 19:55 DC 10/05/20 19:34 Non-Formulary Medication (Metformin Hcl ) 1,000 mg DAILYWBKFT PO 10/06/20 08:00 10/06/20 10:14 DC Atorvastatin Calcium (Lipitor) 5 mg QHS PO 10/05/20 21:00 10/17/20 20:43 Venlafaxine HCl (Effexor Xr) 37.5 mg DAILY PO 10/06/20 09:00 10/17/20 07:44 Metformin HCl (Glucophage Xr) 1,000 mg DAILYWBKFT PO 10/06/20 12:00 10/17/20 07:44 Risperidone (RisperDAL) 1 mg DAILY SL 10/06/20 20:00 10/08/20 17:08 DC 10/07/20 08:41 Valproic Acid (Depakene) 250 mg DAILY PO 10/06/20 20:00 10/08/20 17:08 DC Divalproex Sodium (Depakote Sprinkles) 500 mg DAILY PO 10/09/20 09:00 10/17/20 07:43 Risperidone (RisperDAL) 1.5 mg DAILY PO 10/09/20 09:00 10/10/20 16:20 DC 10/10/20 08:10 Risperidone (RisperDAL) 1.5 mg 1X ONCE PO 10/09/20 21:15 10/09/20 21:16 DC 10/09/20 21:15 Divalproex Sodium (Depakote Sprinkles) 500 mg 1X ONCE PO 10/09/20 21:15 10/09/20 21:16 DC 10/09/20 21:15 Risperidone (RisperDAL) 2 mg DAILY PO 10/11/20 09:00 10/17/20 07:44 Risperidone (RisperDAL) 1 mg DAILY SL 10/13/20 09:00 10/15/20 07:50 Mirtazapine (Remeron) 7.5 mg QHS PO 10/14/20 22:45 10/17/20 20:44 Nicotine (Nicoderm Cq 14mg Patch) 1 patch PRN DAILY PRN TD SMOKING CESSATION 10/15/20 09:15 I have reviewed the current psychotropics carefully including drug interactions. Risk benefit ratio favors no change other than as noted in my dictated progress note. Diagnosis: Problems: (1) Schizoaffective disorder, bipolar type (2) Mild cognitive impairment (3) Bipolar disorder, current episode mixed, severe, with psychotic features (4) Anxiety disorder, unspecified (5) Impulse disorder, unspecified RHETT MATHEW MD Oct 17, 2020 21:25
--- NOTE | 2020-10-17 21:25 | PDOC ---
Exam Note: Jose Note: Please also refer to the separate dictated note~for this date of service dictated separately.~Patient seen individually. Discussed the patient with Nursing staff reviewed the chart.~Reviewed interim history and current functioning. Reviewed vital signs,~Labs/ Radiology~and current medications noted below. Continue current treatment with the changes noted in the dictated addendum note Assessment: Vital Signs/I&O: Vital Signs Date Time Temp Pulse Resp B/P (MAP) Pulse Ox O2 Delivery O2 Flow Rate FiO2 10/17/20 16:32 97.2 70 22 117/54 (75) 92 3.0 10/17/20 06:24 Nasal Cannula I & O 10/16/20 10/16/20 10/17/20 15:00 23:00 07:00 Intake Total 480 ml 640 ml Balance 480 ml 640 ml Labs: Laboratory Tests Test 10/17/20 07:39 Glucose (Fingerstick) 173 mg/dL (70-99) H Current Medications: Meds: Laboratory Tests Test 10/17/20 07:39 Glucose (Fingerstick) 173 mg/dL Current Medications Medications (Trade) Dose Ordered Sig/Denise Route PRN Reason Start Time Stop Time Status Last Admin Dose Admin Acetaminophen (Tylenol) 650 mg PRN Q6HRS PRN PO MILD PAIN / TEMP > 100.3'F 10/05/20 16:45 Multi-Ingredient Ointment (Analgesic [place]) 1 uzair PRN QID PRN TP MUSCLE PAIN 10/05/20 16:45 Al Hydroxide/Mg Hydroxide (Mylanta Plus Xs) 15 ml PRN AFTMEALHC PRN PO DYSPEPSIA 10/05/20 16:45 Magnesium Hydroxide (Milk Of Magnesia) 2,400 mg PRN QHS PRN PO CONSTIPATION 10/05/20 16:45 Nicotine (Nicoderm Cq 14mg Patch) 1 patch DAILY TD 10/05/20 17:30 10/15/20 09:07 DC 10/11/20 08:09 Divalproex Sodium (Depakote Er) 250 mg QHS PO 10/05/20 21:00 10/06/20 18:27 DC Latanoprost (Xalatan) 1 drop QHS OU 10/05/20 21:00 10/17/20 20:43 Lisinopril (Prinivil) 10 mg DAILY PO 10/06/20 09:00 10/17/20 07:44 Melatonin (Melatonin) 3 mg QHS PO 10/05/20 21:00 10/17/20 20:44 Olanzapine (ZyPREXA) 10 mg QHS PO 10/05/20 21:00 10/06/20 19:55 DC 10/05/20 19:34 Non-Formulary Medication (Metformin Hcl ) 1,000 mg DAILYWBKFT PO 10/06/20 08:00 10/06/20 10:14 DC Atorvastatin Calcium (Lipitor) 5 mg QHS PO 10/05/20 21:00 10/17/20 20:43 Venlafaxine HCl (Effexor Xr) 37.5 mg DAILY PO 10/06/20 09:00 10/17/20 07:44 Metformin HCl (Glucophage Xr) 1,000 mg DAILYWBKFT PO 10/06/20 12:00 10/17/20 07:44 Risperidone (RisperDAL) 1 mg DAILY SL 10/06/20 20:00 10/08/20 17:08 DC 10/07/20 08:41 Valproic Acid (Depakene) 250 mg DAILY PO 10/06/20 20:00 10/08/20 17:08 DC Divalproex Sodium (Depakote Sprinkles) 500 mg DAILY PO 10/09/20 09:00 10/17/20 07:43 Risperidone (RisperDAL) 1.5 mg DAILY PO 10/09/20 09:00 10/10/20 16:20 DC 10/10/20 08:10 Risperidone (RisperDAL) 1.5 mg 1X ONCE PO 10/09/20 21:15 10/09/20 21:16 DC 10/09/20 21:15 Divalproex Sodium (Depakote Sprinkles) 500 mg 1X ONCE PO 10/09/20 21:15 10/09/20 21:16 DC 10/09/20 21:15 Risperidone (RisperDAL) 2 mg DAILY PO 10/11/20 09:00 10/17/20 07:44 Risperidone (RisperDAL) 1 mg DAILY SL 10/13/20 09:00 10/15/20 07:50 Mirtazapine (Remeron) 7.5 mg QHS PO 10/14/20 22:45 10/17/20 20:44 Nicotine (Nicoderm Cq 14mg Patch) 1 patch PRN DAILY PRN TD SMOKING CESSATION 10/15/20 09:15 I have reviewed the current psychotropics carefully including drug interactions. Risk benefit ratio favors no change other than as noted in my dictated progress note. Diagnosis: Problems: (1) Schizoaffective disorder, bipolar type (2) Mild cognitive impairment (3) Bipolar disorder, current episode mixed, severe, with psychotic features (4) Anxiety disorder, unspecified (5) Impulse disorder, unspecified RHETT MATHEW MD Oct 17, 2020 21:25
[2020-10-18 06:07] VITALS: BP 160/72
[2020-10-18] MEDS: VENLAFAXINE XR 37.5 MG CAP.ER.24H. PO SCH (07:47)
[2020-10-18] MEDS: risperiDONE 2 MG TABLET. PO SCH (07:47)
[2020-10-18] MEDS: DIVALPROEX 125 MG CAP.SPRINK PO SCH (07:47)
[2020-10-18] MEDS: LISINOPRIL 10 MG TABLET PO SCH (07:47)
[2020-10-18] MEDS: metFORMIN XR 500 MG TAB.ER.24H PO SCH (07:47)
--- NOTE | 2020-10-18 08:12 | PDOC ---
Exam Note: Jose Note: This note is a late entry for 10/17/2020 covers elements not covered in my initial note. Subjective: The patient was seen face to face in the evening of 10/17/2020 with Hilaria CEBALLOS. Discussed with nursing staff, reviewed the chart. The patient slept 6-1/4 previous night. She remains intermittently psychotic, talking to herself but less intensely than before. She has been slightly more compliant with her psychotropics and less paranoid as a consequence of this. Review of Systems: Ambulation impaired. No CV, , pulmonary, eye, ENT system symptoms on review. Mental Status Exam: The patient is reasonably oriented. Speech is coherent, less pressured. Abstraction is fair. Computation is impaired. Language function is intact. Attention span is short. Mood and affect is somewhat anxious and labile. No suicidal or homicidal ideation. Laboratory Data: Reviewed. Impression: Schizoaffective disorder, bipolar type mixed with psychotic features. Anxiety disorder unspecified. Impulse control disorder unspecified. Plan: Continue current psychotropics. We have discussed at length compliance with her psychotropics. Received informed consent. Continue current psychotropics. Assessment: Vital Signs/I&O: Vital Signs Date Time Temp Pulse Resp B/P (MAP) Pulse Ox O2 Delivery O2 Flow Rate FiO2 10/18/20 07:47 97 160/72 10/18/20 06:07 98.3 18 94 Nasal Cannula 3.0 I & O 10/17/20 10/17/20 10/18/20 14:59 22:59 06:59 Intake Total 720 ml 480 ml Balance 720 ml 480 ml Labs: Laboratory Tests Test 10/18/20 07:52 Glucose (Fingerstick) 109 mg/dL (70-99) H Current Medications: Meds: Laboratory Tests Test 10/18/20 07:52 Glucose (Fingerstick) 109 mg/dL Current Medications Medications (Trade) Dose Ordered Sig/Denise Route PRN Reason Start Time Stop Time Status Last Admin Dose Admin Acetaminophen (Tylenol) 650 mg PRN Q6HRS PRN PO MILD PAIN / TEMP > 100.3'F 10/05/20 16:45 Multi-Ingredient Ointment (Analgesic [place]) 1 uzair PRN QID PRN TP MUSCLE PAIN 10/05/20 16:45 Al Hydroxide/Mg Hydroxide (Mylanta Plus Xs) 15 ml PRN AFTMEALHC PRN PO DYSPEPSIA 10/05/20 16:45 Magnesium Hydroxide (Milk Of Magnesia) 2,400 mg PRN QHS PRN PO CONSTIPATION 10/05/20 16:45 Nicotine (Nicoderm Cq 14mg Patch) 1 patch DAILY TD 10/05/20 17:30 10/15/20 09:07 DC 10/11/20 08:09 Divalproex Sodium (Depakote Er) 250 mg QHS PO 10/05/20 21:00 10/06/20 18:27 DC Latanoprost (Xalatan) 1 drop QHS OU 10/05/20 21:00 10/17/20 20:43 Lisinopril (Prinivil) 10 mg DAILY PO 10/06/20 09:00 10/18/20 07:47 Melatonin (Melatonin) 3 mg QHS PO 10/05/20 21:00 10/17/20 20:44 Olanzapine (ZyPREXA) 10 mg QHS PO 10/05/20 21:00 10/06/20 19:55 DC 10/05/20 19:34 Non-Formulary Medication (Metformin Hcl ) 1,000 mg DAILYWBKFT PO 10/06/20 08:00 10/06/20 10:14 DC Atorvastatin Calcium (Lipitor) 5 mg QHS PO 10/05/20 21:00 10/17/20 20:43 Venlafaxine HCl (Effexor Xr) 37.5 mg DAILY PO 10/06/20 09:00 10/18/20 07:47 Metformin HCl (Glucophage Xr) 1,000 mg DAILYWBKFT PO 10/06/20 12:00 10/18/20 07:47 Risperidone (RisperDAL) 1 mg DAILY SL 10/06/20 20:00 10/08/20 17:08 DC 10/07/20 08:41 Valproic Acid (Depakene) 250 mg DAILY PO 10/06/20 20:00 10/08/20 17:08 DC Divalproex Sodium (Depakote Sprinkles) 500 mg DAILY PO 10/09/20 09:00 10/18/20 07:47 Risperidone (RisperDAL) 1.5 mg DAILY PO 10/09/20 09:00 10/10/20 16:20 DC 10/10/20 08:10 Risperidone (RisperDAL) 1.5 mg 1X ONCE PO 10/09/20 21:15 10/09/20 21:16 DC 10/09/20 21:15 Divalproex Sodium (Depakote Sprinkles) 500 mg 1X ONCE PO 10/09/20 21:15 10/09/20 21:16 DC 10/09/20 21:15 Risperidone (RisperDAL) 2 mg DAILY PO 10/11/20 09:00 10/18/20 07:47 Risperidone (RisperDAL) 1 mg DAILY SL 10/13/20 09:00 10/15/20 07:50 Mirtazapine (Remeron) 7.5 mg QHS PO 10/14/20 22:45 10/17/20 20:44 Nicotine (Nicoderm Cq 14mg Patch) 1 patch PRN DAILY PRN TD SMOKING CESSATION 10/15/20 09:15 I have reviewed the current psychotropics carefully including drug interactions. Risk benefit ratio favors no change other than as noted in my dictated progress note. Diagnosis: Problems: (1) Schizoaffective disorder, bipolar type (2) Mild cognitive impairment (3) Bipolar disorder, current episode mixed, severe, with psychotic features (4) Anxiety disorder, unspecified (5) Impulse disorder, unspecified RHETT MATHEW MD Oct 18, 2020 08:12
[2020-10-18] MEDS: risperiDONE ORAL 1 MG/ML 30ml BOTTLE. SL SCH (09:00)
[2020-10-18 16:15] VITALS: BP 151/70
[2020-10-18] MEDS: LATANOPROST 0.005% OPHTH SOLUTION 2.5ML BOTTLE. OU SCH (20:20)
[2020-10-18] MEDS: MELATONIN 3 MG TABLET PO SCH (20:20)
[2020-10-18] MEDS: ATORVASTATIN CALCIUM 10 MG TABLET. PO SCH (20:21)
[2020-10-18] MEDS: MIRTAZAPINE 7.5 MG TABLET. PO SCH (20:21)
--- NOTE | 2020-10-18 20:59 | PDOC ---
Exam Note: Jose Note: Please also refer to the separate dictated note~for this date of service dictated separately.~Patient seen individually. Discussed the patient with Nursing staff reviewed the chart.~Reviewed interim history and current functioning. Reviewed vital signs,~Labs/ Radiology~and current medications noted below. Continue current treatment with the changes noted in the dictated addendum note Assessment: Vital Signs/I&O: Vital Signs Date Time Temp Pulse Resp B/P (MAP) Pulse Ox O2 Delivery O2 Flow Rate FiO2 10/18/20 16:15 97.2 98 22 151/70 (97) 92 10/18/20 06:07 Nasal Cannula 3.0 I & O 10/17/20 10/17/20 10/18/20 15:00 23:00 07:00 Intake Total 720 ml 480 ml Balance 720 ml 480 ml Labs: Laboratory Tests Test 10/18/20 07:52 Glucose (Fingerstick) 109 mg/dL (70-99) H Current Medications: Meds: Laboratory Tests Test 10/18/20 07:52 Glucose (Fingerstick) 109 mg/dL Current Medications Medications (Trade) Dose Ordered Sig/Denise Route PRN Reason Start Time Stop Time Status Last Admin Dose Admin Acetaminophen (Tylenol) 650 mg PRN Q6HRS PRN PO MILD PAIN / TEMP > 100.3'F 10/05/20 16:45 Multi-Ingredient Ointment (Analgesic [place]) 1 uzair PRN QID PRN TP MUSCLE PAIN 10/05/20 16:45 Al Hydroxide/Mg Hydroxide (Mylanta Plus Xs) 15 ml PRN AFTMEALHC PRN PO DYSPEPSIA 10/05/20 16:45 Magnesium Hydroxide (Milk Of Magnesia) 2,400 mg PRN QHS PRN PO CONSTIPATION 10/05/20 16:45 Nicotine (Nicoderm Cq 14mg Patch) 1 patch DAILY TD 10/05/20 17:30 10/15/20 09:07 DC 10/11/20 08:09 Divalproex Sodium (Depakote Er) 250 mg QHS PO 10/05/20 21:00 10/06/20 18:27 DC Latanoprost (Xalatan) 1 drop QHS OU 10/05/20 21:00 10/18/20 20:20 Lisinopril (Prinivil) 10 mg DAILY PO 10/06/20 09:00 10/18/20 07:47 Melatonin (Melatonin) 3 mg QHS PO 10/05/20 21:00 10/18/20 20:20 Olanzapine (ZyPREXA) 10 mg QHS PO 10/05/20 21:00 10/06/20 19:55 DC 10/05/20 19:34 Non-Formulary Medication (Metformin Hcl ) 1,000 mg DAILYWBKFT PO 10/06/20 08:00 10/06/20 10:14 DC Atorvastatin Calcium (Lipitor) 5 mg QHS PO 10/05/20 21:00 10/18/20 20:21 Venlafaxine HCl (Effexor Xr) 37.5 mg DAILY PO 10/06/20 09:00 10/18/20 07:47 Metformin HCl (Glucophage Xr) 1,000 mg DAILYWBKFT PO 10/06/20 12:00 10/18/20 07:47 Risperidone (RisperDAL) 1 mg DAILY SL 10/06/20 20:00 10/08/20 17:08 DC 10/07/20 08:41 Valproic Acid (Depakene) 250 mg DAILY PO 10/06/20 20:00 10/08/20 17:08 DC Divalproex Sodium (Depakote Sprinkles) 500 mg DAILY PO 10/09/20 09:00 10/18/20 07:47 Risperidone (RisperDAL) 1.5 mg DAILY PO 10/09/20 09:00 10/10/20 16:20 DC 10/10/20 08:10 Risperidone (RisperDAL) 1.5 mg 1X ONCE PO 10/09/20 21:15 10/09/20 21:16 DC 10/09/20 21:15 Divalproex Sodium (Depakote Sprinkles) 500 mg 1X ONCE PO 10/09/20 21:15 10/09/20 21:16 DC 10/09/20 21:15 Risperidone (RisperDAL) 2 mg DAILY PO 10/11/20 09:00 10/18/20 07:47 Risperidone (RisperDAL) 1 mg DAILY SL 10/13/20 09:00 10/15/20 07:50 Mirtazapine (Remeron) 7.5 mg QHS PO 10/14/20 22:45 10/18/20 20:21 Nicotine (Nicoderm Cq 14mg Patch) 1 patch PRN DAILY PRN TD SMOKING CESSATION 10/15/20 09:15 I have reviewed the current psychotropics carefully including drug interactions. Risk benefit ratio favors no change other than as noted in my dictated progress note. Diagnosis: Problems: (1) Schizoaffective disorder, bipolar type (2) Mild cognitive impairment (3) Bipolar disorder, current episode mixed, severe, with psychotic features (4) Anxiety disorder, unspecified (5) Impulse disorder, unspecified RHETT MATHEW MD Oct 18, 2020 20:59
[2020-10-18] MEDS ORDERED: traZODone 50 MG TABLET. PO PRN (22:00)
[2020-10-19 06:26] VITALS: BP 151/76
[2020-10-19] MEDS: risperiDONE 2 MG TABLET. PO SCH (07:47)
[2020-10-19] MEDS: DIVALPROEX 125 MG CAP.SPRINK PO SCH (07:47)
[2020-10-19] MEDS: LISINOPRIL 10 MG TABLET PO SCH (08:39)
[2020-10-19] MEDS: VENLAFAXINE XR 37.5 MG CAP.ER.24H. PO SCH (08:40)
[2020-10-19] MEDS: metFORMIN XR 500 MG TAB.ER.24H PO SCH (08:40)
[2020-10-19] MEDS: risperiDONE ORAL 1 MG/ML 30ml BOTTLE. SL SCH (08:40)
[2020-10-19 15:35] VITALS: BP 154/79
[2020-10-19] MEDS: LATANOPROST 0.005% OPHTH SOLUTION 2.5ML BOTTLE. OU SCH (20:13)
[2020-10-19] MEDS: MIRTAZAPINE 7.5 MG TABLET. PO SCH (20:14)
[2020-10-19] MEDS: MELATONIN 3 MG TABLET PO SCH (20:14)
[2020-10-19] MEDS: ATORVASTATIN CALCIUM 10 MG TABLET. PO SCH (20:14)
--- NOTE | 2020-10-19 20:54 | PDOC ---
Exam Note: Jose Note: Please also refer to the separate dictated note~for this date of service dictated separately.~Patient seen individually. Discussed the patient with Nursing staff reviewed the chart.~Reviewed interim history and current functioning. Reviewed vital signs,~Labs/ Radiology~and current medications noted below. Continue current treatment with the changes noted in the dictated addendum note Assessment: Vital Signs/I&O: Vital Signs Date Time Temp Pulse Resp B/P (MAP) Pulse Ox O2 Delivery O2 Flow Rate FiO2 10/19/20 15:35 97.0 96 18 154/79 (104) 90 4.0 10/19/20 06:26 Nasal Cannula I & O 10/18/20 10/18/20 10/19/20 15:00 23:00 07:00 Intake Total 600 ml 480 ml Balance 600 ml 480 ml Labs: Laboratory Tests Test 10/19/20 07:38 Glucose (Fingerstick) 133 mg/dL (70-99) H Current Medications: Meds: Laboratory Tests Test 10/19/20 07:38 Glucose (Fingerstick) 133 mg/dL Current Medications Medications (Trade) Dose Ordered Sig/[place]ie Route PRN Reason Start Time Stop Time Status Last Admin Dose Admin Acetaminophen (Tylenol) 650 mg PRN Q6HRS PRN PO MILD PAIN / TEMP > 100.3'F 10/05/20 16:45 Multi-Ingredient Ointment (Analgesic [place]) 1 uzair PRN QID PRN TP MUSCLE PAIN 10/05/20 16:45 Al Hydroxide/Mg Hydroxide (Mylanta Plus Xs) 15 ml PRN AFTMEALHC PRN PO DYSPEPSIA 10/05/20 16:45 Magnesium Hydroxide (Milk Of Magnesia) 2,400 mg PRN QHS PRN PO CONSTIPATION 10/05/20 16:45 Nicotine (Nicoderm Cq 14mg Patch) 1 patch DAILY TD 10/05/20 17:30 10/15/20 09:07 DC 10/11/20 08:09 Divalproex Sodium (Depakote Er) 250 mg QHS PO 10/05/20 21:00 10/06/20 18:27 DC Latanoprost (Xalatan) 1 drop QHS OU 10/05/20 21:00 10/18/20 20:20 Lisinopril (Prinivil) 10 mg DAILY PO 10/06/20 09:00 10/19/20 08:39 Melatonin (Melatonin) 3 mg QHS PO 10/05/20 21:00 10/19/20 20:14 Olanzapine (ZyPREXA) 10 mg QHS PO 10/05/20 21:00 10/06/20 19:55 DC 10/05/20 19:34 Non-Formulary Medication (Metformin Hcl ) 1,000 mg DAILYWBKFT PO 10/06/20 08:00 10/06/20 10:14 DC Atorvastatin Calcium (Lipitor) 5 mg QHS PO 10/05/20 21:00 10/19/20 20:14 Venlafaxine HCl (Effexor Xr) 37.5 mg DAILY PO 10/06/20 09:00 10/19/20 08:40 Metformin HCl (Glucophage Xr) 1,000 mg DAILYWBKFT PO 10/06/20 12:00 10/19/20 08:40 Risperidone (RisperDAL) 1 mg DAILY SL 10/06/20 20:00 10/08/20 17:08 DC 10/07/20 08:41 Valproic Acid (Depakene) 250 mg DAILY PO 10/06/20 20:00 10/08/20 17:08 DC Divalproex Sodium (Depakote Sprinkles) 500 mg DAILY PO 10/09/20 09:00 10/19/20 07:47 Risperidone (RisperDAL) 1.5 mg DAILY PO 10/09/20 09:00 10/10/20 16:20 DC 10/10/20 08:10 Risperidone (RisperDAL) 1.5 mg 1X ONCE PO 10/09/20 21:15 10/09/20 21:16 DC 10/09/20 21:15 Divalproex Sodium (Depakote Sprinkles) 500 mg 1X ONCE PO 10/09/20 21:15 10/09/20 21:16 DC 10/09/20 21:15 Risperidone (RisperDAL) 2 mg DAILY PO 10/11/20 09:00 10/19/20 07:47 Risperidone (RisperDAL) 1 mg DAILY SL 10/13/20 09:00 10/15/20 07:50 Mirtazapine (Remeron) 7.5 mg QHS PO 10/14/20 22:45 10/19/20 20:14 Nicotine (Nicoderm Cq 14mg Patch) 1 patch PRN DAILY PRN TD SMOKING CESSATION 10/15/20 09:15 Trazodone HCl (Desyrel) 50 mg PRN QHS PRN PO INSOMNIA, MAY REPEAT X1 10/18/20 22:00 I have reviewed the current psychotropics carefully including drug interactions. Risk benefit ratio favors no change other than as noted in my dictated progress note. Diagnosis: Problems: (1) Schizoaffective disorder, bipolar type (2) Mild cognitive impairment (3) Bipolar disorder, current episode mixed, severe, with psychotic features (4) Anxiety disorder, unspecified (5) Impulse disorder, unspecified RHETT MATHEW MD Oct 19, 2020 20:54
[2020-10-20] MEDS ORDERED: TRAZ-120 PO (00:22)
[2020-10-20] MEDS ORDERED: RISP2TAB78 PO (00:38)
[2020-10-20 06:14] VITALS: BP 112/70
[2020-10-20] MEDS: LISINOPRIL 10 MG TABLET PO SCH (07:41)
[2020-10-20] MEDS: metFORMIN XR 500 MG TAB.ER.24H PO SCH (07:41)
[2020-10-20] MEDS: VENLAFAXINE XR 37.5 MG CAP.ER.24H. PO SCH (07:41)
[2020-10-20] MEDS: DIVALPROEX 125 MG CAP.SPRINK PO SCH ×2 (07:42→20:13)
[2020-10-20] MEDS: risperiDONE 2 MG TABLET. PO SCH ×2 (07:42→09:00)
--- NOTE | 2020-10-20 08:38 | PDOC ---
Exam Note: Jose Note: This note is a late entry for 10/18/2020 covers elements not covered in my initial note. Subjective: The patient was seen face to face in the evening of 10/18/2020 with Annette CEBALLOS. Discussed with nursing staff, reviewed the chart. The patient slept 6-1/4 previous night. She continues to talk to herself but perhaps less intensely as before. She slept better previous night, though she woke up middle of the night and we will add trazodone 50 mg h.s. p.r.n., may repeat x1 for insomnia. She was hiding her a.m. medications and I discussed medication compliance at length with her in her room in the evening as I met with her. Review of Systems: Ambulation impaired. No CV, , pulmonary, eye, ENT system symptoms on review. Mental Status Exam: The patient is reasonably oriented. She was pleasant, verbal, interactive, less paranoid, more interactive with me. Speech is coherent, less pressured. Abstraction is fair. Computation is impaired. Language function is intact. Attention span is short. Mood and affect anxious and labile. No suicidal or homicidal ideation. Laboratory Data: Reviewed. Impression: Schizoaffective disorder, bipolar type mixed with psychotic features. Anxiety disorder unspecified. Impulse control disorder unspecified. Plan: Continue current psychotropics. Overall the patients compliance with Risperdal is better and as this is improved she is doing a little better, still paranoid but improved. No suicidal or homicidal ideation. Assessment: Vital Signs/I&O: Vital Signs Date Time Temp Pulse Resp B/P (MAP) Pulse Ox O2 Delivery O2 Flow Rate FiO2 10/20/20 07:41 89 112/70 10/20/20 06:14 98.2 20 92 Nasal Cannula 2.0 I & O 10/19/20 10/19/20 10/20/20 15:00 23:00 07:00 Intake Total 580 ml 460 ml Balance 580 ml 460 ml Labs: Laboratory Tests Test 10/20/20 07:34 Glucose (Fingerstick) 138 mg/dL (70-99) H Current Medications: Meds: Laboratory Tests Test 10/20/20 07:34 Glucose (Fingerstick) 138 mg/dL Current Medications Medications (Trade) Dose Ordered Sig/Denise Route PRN Reason Start Time Stop Time Status Last Admin Dose Admin Acetaminophen (Tylenol) 650 mg PRN Q6HRS PRN PO MILD PAIN / TEMP > 100.3'F 10/05/20 16:45 Multi-Ingredient Ointment (Analgesic [place]) 1 uzair PRN QID PRN TP MUSCLE PAIN 10/05/20 16:45 Al Hydroxide/Mg Hydroxide (Mylanta Plus Xs) 15 ml PRN AFTMEALHC PRN PO DYSPEPSIA 10/05/20 16:45 Magnesium Hydroxide (Milk Of Magnesia) 2,400 mg PRN QHS PRN PO CONSTIPATION 10/05/20 16:45 Nicotine (Nicoderm Cq 14mg Patch) 1 patch DAILY TD 10/05/20 17:30 10/15/20 09:07 DC 10/11/20 08:09 Divalproex Sodium (Depakote Er) 250 mg QHS PO 10/05/20 21:00 10/06/20 18:27 DC Latanoprost (Xalatan) 1 drop QHS OU 10/05/20 21:00 10/18/20 20:20 Lisinopril (Prinivil) 10 mg DAILY PO 10/06/20 09:00 10/20/20 07:41 Melatonin (Melatonin) 3 mg QHS PO 10/05/20 21:00 10/19/20 20:14 Olanzapine (ZyPREXA) 10 mg QHS PO 10/05/20 21:00 10/06/20 19:55 DC 10/05/20 19:34 Non-Formulary Medication (Metformin Hcl ) 1,000 mg DAILYWBKFT PO 10/06/20 08:00 10/06/20 10:14 DC Atorvastatin Calcium (Lipitor) 5 mg QHS PO 10/05/20 21:00 10/19/20 20:14 Venlafaxine HCl (Effexor Xr) 37.5 mg DAILY PO 10/06/20 09:00 10/20/20 07:41 Metformin HCl (Glucophage Xr) 1,000 mg DAILYWBKFT PO 10/06/20 12:00 10/20/20 07:41 Risperidone (RisperDAL) 1 mg DAILY SL 10/06/20 20:00 10/08/20 17:08 DC 10/07/20 08:41 Valproic Acid (Depakene) 250 mg DAILY PO 10/06/20 20:00 10/08/20 17:08 DC Divalproex Sodium (Depakote Sprinkles) 500 mg DAILY PO 10/09/20 09:00 10/20/20 07:42 Risperidone (RisperDAL) 1.5 mg DAILY PO 10/09/20 09:00 10/10/20 16:20 DC 10/10/20 08:10 Risperidone (RisperDAL) 1.5 mg 1X ONCE PO 10/09/20 21:15 10/09/20 21:16 DC 10/09/20 21:15 Divalproex Sodium (Depakote Sprinkles) 500 mg 1X ONCE PO 10/09/20 21:15 10/09/20 21:16 DC 10/09/20 21:15 Risperidone (RisperDAL) 2 mg DAILY PO 10/11/20 09:00 10/20/20 07:42 Risperidone (RisperDAL) 1 mg DAILY SL 10/13/20 09:00 10/15/20 07:50 Mirtazapine (Remeron) 7.5 mg QHS PO 10/14/20 22:45 10/19/20 20:14 Nicotine (Nicoderm Cq 14mg Patch) 1 patch PRN DAILY PRN TD SMOKING CESSATION 10/15/20 09:15 Trazodone HCl (Desyrel) 50 mg PRN QHS PRN PO INSOMNIA, MAY REPEAT X1 10/18/20 22:00 I have reviewed the current psychotropics carefully including drug interactions. Risk benefit ratio favors no change other than as noted in my dictated progress note. Diagnosis: Problems: (1) Schizoaffective disorder, bipolar type (2) Mild cognitive impairment (3) Bipolar disorder, current episode mixed, severe, with psychotic features (4) Anxiety disorder, unspecified (5) Impulse disorder, unspecified RHETT MATHEW MD Oct 20, 2020 08:38
[2020-10-20] MEDS: risperiDONE ORAL 1 MG/ML 30ml BOTTLE. SL SCH ×2 (09:00→16:15)
--- NOTE | 2020-10-20 09:03 | PDOC ---
Exam Note: Jose Note: This note is a late entry for 10/19/2020 covers elements not covered in my initial note. Subjective: The patient was seen face to face in the evening of 10/19/2020 with nursing staff, reviewed the chart. The patient slept 6-3/4 previous night. She remains hyperverbal but less psychotic. She did get her Risperdal in hot chocolate earlier in the morning and generally did better after that. Nevertheless she is still removing her oxygen and O2 sats drop into the 70s. I processed this with her at length. She promises to keep it on. Review of Systems: Ambulation impaired. No CV, , eye, ENT system symptoms on review. Mental Status Exam: The patient is oriented to herself and situation. Speech is somewhat rapid. Abstraction is fair. Computation is impaired. General paranoia is better. Laboratory Data: Reviewed. Impression: Schizoaffective disorder, bipolar type mixed with psychotic features. Anxiety disorder unspecified. Impulse control disorder unspecified. Plan: Continue to persevere with improving compliance with her antipsychotic and Depakote. We will follow labs on the Depakote. Assessment: Vital Signs/I&O: Vital Signs Date Time Temp Pulse Resp B/P (MAP) Pulse Ox O2 Delivery O2 Flow Rate FiO2 10/20/20 07:41 89 112/70 10/20/20 06:14 98.2 20 92 Nasal Cannula 2.0 I & O 10/19/20 10/19/20 10/20/20 14:59 22:59 06:59 Intake Total 580 ml 460 ml Balance 580 ml 460 ml Labs: Laboratory Tests Test 10/20/20 07:34 Glucose (Fingerstick) 138 mg/dL (70-99) H Current Medications: Meds: Laboratory Tests Test 10/20/20 07:34 Glucose (Fingerstick) 138 mg/dL Current Medications Medications (Trade) Dose Ordered Sig/Denise Route PRN Reason Start Time Stop Time Status Last Admin Dose Admin Acetaminophen (Tylenol) 650 mg PRN Q6HRS PRN PO MILD PAIN / TEMP > 100.3'F 10/05/20 16:45 Multi-Ingredient Ointment (Analgesic [place]) 1 uzair PRN QID PRN TP MUSCLE PAIN 10/05/20 16:45 Al Hydroxide/Mg Hydroxide (Mylanta Plus Xs) 15 ml PRN AFTMEALHC PRN PO DYSPEPSIA 10/05/20 16:45 Magnesium Hydroxide (Milk Of Magnesia) 2,400 mg PRN QHS PRN PO CONSTIPATION 10/05/20 16:45 Nicotine (Nicoderm Cq 14mg Patch) 1 patch DAILY TD 10/05/20 17:30 10/15/20 09:07 DC 10/11/20 08:09 Divalproex Sodium (Depakote Er) 250 mg QHS PO 10/05/20 21:00 10/06/20 18:27 DC Latanoprost (Xalatan) 1 drop QHS OU 10/05/20 21:00 10/18/20 20:20 Lisinopril (Prinivil) 10 mg DAILY PO 10/06/20 09:00 10/20/20 07:41 Melatonin (Melatonin) 3 mg QHS PO 10/05/20 21:00 10/19/20 20:14 Olanzapine (ZyPREXA) 10 mg QHS PO 10/05/20 21:00 10/06/20 19:55 DC 10/05/20 19:34 Non-Formulary Medication (Metformin Hcl ) 1,000 mg DAILYWBKFT PO 10/06/20 08:00 10/06/20 10:14 DC Atorvastatin Calcium (Lipitor) 5 mg QHS PO 10/05/20 21:00 10/19/20 20:14 Venlafaxine HCl (Effexor Xr) 37.5 mg DAILY PO 10/06/20 09:00 10/20/20 07:41 Metformin HCl (Glucophage Xr) 1,000 mg DAILYWBKFT PO 10/06/20 12:00 10/20/20 07:41 Risperidone (RisperDAL) 1 mg DAILY SL 10/06/20 20:00 10/08/20 17:08 DC 10/07/20 08:41 Valproic Acid (Depakene) 250 mg DAILY PO 10/06/20 20:00 10/08/20 17:08 DC Divalproex Sodium (Depakote Sprinkles) 500 mg DAILY PO 10/09/20 09:00 10/20/20 07:42 Risperidone (RisperDAL) 1.5 mg DAILY PO 10/09/20 09:00 10/10/20 16:20 DC 10/10/20 08:10 Risperidone (RisperDAL) 1.5 mg 1X ONCE PO 10/09/20 21:15 10/09/20 21:16 DC 10/09/20 21:15 Divalproex Sodium (Depakote Sprinkles) 500 mg 1X ONCE PO 10/09/20 21:15 10/09/20 21:16 DC 10/09/20 21:15 Risperidone (RisperDAL) 2 mg DAILY PO 10/11/20 09:00 10/20/20 07:42 Risperidone (RisperDAL) 1 mg DAILY SL 10/13/20 09:00 10/15/20 07:50 Mirtazapine (Remeron) 7.5 mg QHS PO 10/14/20 22:45 10/19/20 20:14 Nicotine (Nicoderm Cq 14mg Patch) 1 patch PRN DAILY PRN TD SMOKING CESSATION 10/15/20 09:15 Trazodone HCl (Desyrel) 50 mg PRN QHS PRN PO INSOMNIA, MAY REPEAT X1 10/18/20 22:00 I have reviewed the current psychotropics carefully including drug interactions. Risk benefit ratio favors no change other than as noted in my dictated progress note. Diagnosis: Problems: (1) Schizoaffective disorder, bipolar type (2) Mild cognitive impairment (3) Bipolar disorder, current episode mixed, severe, with psychotic features (4) Anxiety disorder, unspecified (5) Impulse disorder, unspecified RHETT MATHEW MD Oct 20, 2020 09:03
[2020-10-20 15:54] VITALS: BP 156/76
[2020-10-20] MEDS: MELATONIN 3 MG TABLET PO SCH (20:14)
[2020-10-20] MEDS: LATANOPROST 0.005% OPHTH SOLUTION 2.5ML BOTTLE. OU SCH (20:14)
[2020-10-20] MEDS: MIRTAZAPINE 7.5 MG TABLET. PO SCH (20:14)
[2020-10-20] MEDS: ATORVASTATIN CALCIUM 10 MG TABLET. PO SCH (20:14)
[2020-10-20 20:30] VITALS: BP 135/56
--- NOTE | 2020-10-20 20:54 | PDOC ---
Exam Note: Jose Note: Please also refer to the separate dictated note~for this date of service dictated separately.~Patient seen individually. Discussed the patient with Nursing staff reviewed the chart.~Reviewed interim history and current functioning. Reviewed vital signs,~Labs/ Radiology~and current medications noted below. Continue current treatment with the changes noted in the dictated addendum note Assessment: Vital Signs/I&O: Vital Signs Date Time Temp Pulse Resp B/P (MAP) Pulse Ox O2 Delivery O2 Flow Rate FiO2 10/20/20 15:54 98.0 99 16 156/76 (102) 98 10/20/20 06:14 Nasal Cannula 2.0 I & O 10/19/20 10/19/20 10/20/20 15:00 23:00 07:00 Intake Total 580 ml 460 ml Balance 580 ml 460 ml Labs: Laboratory Tests Test 10/20/20 07:34 Glucose (Fingerstick) 138 mg/dL (70-99) H Current Medications: Meds: Laboratory Tests Test 10/20/20 07:34 Glucose (Fingerstick) 138 mg/dL Current Medications Medications (Trade) Dose Ordered Sig/Denise Route PRN Reason Start Time Stop Time Status Last Admin Dose Admin Acetaminophen (Tylenol) 650 mg PRN Q6HRS PRN PO MILD PAIN / TEMP > 100.3'F 10/05/20 16:45 Multi-Ingredient Ointment (Analgesic [place]) 1 uzair PRN QID PRN TP MUSCLE PAIN 10/05/20 16:45 Al Hydroxide/Mg Hydroxide (Mylanta Plus Xs) 15 ml PRN AFTMEALHC PRN PO DYSPEPSIA 10/05/20 16:45 Magnesium Hydroxide (Milk Of Magnesia) 2,400 mg PRN QHS PRN PO CONSTIPATION 10/05/20 16:45 Nicotine (Nicoderm Cq 14mg Patch) 1 patch DAILY TD 10/05/20 17:30 10/15/20 09:07 DC 10/11/20 08:09 Divalproex Sodium (Depakote Er) 250 mg QHS PO 10/05/20 21:00 10/06/20 18:27 DC Latanoprost (Xalatan) 1 drop QHS OU 10/05/20 21:00 10/18/20 20:20 Lisinopril (Prinivil) 10 mg DAILY PO 10/06/20 09:00 10/20/20 07:41 Melatonin (Melatonin) 3 mg QHS PO 10/05/20 21:00 10/20/20 20:14 Olanzapine (ZyPREXA) 10 mg QHS PO 10/05/20 21:00 10/06/20 19:55 DC 10/05/20 19:34 Non-Formulary Medication (Metformin Hcl ) 1,000 mg DAILYWBKFT PO 10/06/20 08:00 10/06/20 10:14 DC Atorvastatin Calcium (Lipitor) 5 mg QHS PO 10/05/20 21:00 10/20/20 20:14 Venlafaxine HCl (Effexor Xr) 37.5 mg DAILY PO 10/06/20 09:00 10/20/20 07:41 Metformin HCl (Glucophage Xr) 1,000 mg DAILYWBKFT PO 10/06/20 12:00 10/20/20 07:41 Risperidone (RisperDAL) 1 mg DAILY SL 10/06/20 20:00 10/08/20 17:08 DC 10/07/20 08:41 Valproic Acid (Depakene) 250 mg DAILY PO 10/06/20 20:00 10/08/20 17:08 DC Divalproex Sodium (Depakote Sprinkles) 500 mg DAILY PO 10/09/20 09:00 10/20/20 20:13 Risperidone (RisperDAL) 1.5 mg DAILY PO 10/09/20 09:00 10/10/20 16:20 DC 10/10/20 08:10 Risperidone (RisperDAL) 1.5 mg 1X ONCE PO 10/09/20 21:15 10/09/20 21:16 DC 10/09/20 21:15 Divalproex Sodium (Depakote Sprinkles) 500 mg 1X ONCE PO 10/09/20 21:15 10/09/20 21:16 DC 10/09/20 21:15 Risperidone (RisperDAL) 2 mg DAILY PO 10/11/20 09:00 10/19/20 07:47 Risperidone (RisperDAL) 1 mg DAILY SL 10/13/20 09:00 10/20/20 16:15 Mirtazapine (Remeron) 7.5 mg QHS PO 10/14/20 22:45 10/20/20 20:14 Nicotine (Nicoderm Cq 14mg Patch) 1 patch PRN DAILY PRN TD SMOKING CESSATION 10/15/20 09:15 Trazodone HCl (Desyrel) 50 mg PRN QHS PRN PO INSOMNIA, MAY REPEAT X1 10/18/20 22:00 I have reviewed the current psychotropics carefully including drug interactions. Risk benefit ratio favors no change other than as noted in my dictated progress note. Diagnosis: Problems: (1) Schizoaffective disorder, bipolar type (2) Mild cognitive impairment (3) Bipolar disorder, current episode mixed, severe, with psychotic features (4) Anxiety disorder, unspecified (5) Impulse disorder, unspecified RHETT MATHEW MD Oct 20, 2020 20:54
--- NOTE | 2020-10-20 22:32 | PN ---
DATE: 10/20/2020 PSYCHIATRIC PROGRESS NOTE This note covers elements not covered in my initial note 10/20/2020. SUBJECTIVE: I met with the patient evening of 10/20/2020 in her room at some length. Discussed with nursing staff, reviewed the chart. Discussed with LIN Staples. The patient was to be discharged today, but her daughter's car broke down and daughter was unable to come until Sunday. The patient is intermittently compliant with her psychotropics, but did get 2 mg of Risperdal today, but refused the Depakote. She normally takes this in hot chocolate. She has been talking less to herself, less psychotic. REVIEW OF SYSTEMS: Shortness of breath. No CV, GI, system symptoms on review. MENTAL STATUS EXAM: Reasonably oriented. Speech coherent, less pressured. Abstraction fair, computation impaired, language function intact. Mood and affect, lability is improved. LABORATORY DATA: Reviewed. IMPRESSION: Unchanged from initial note. PLAN: No change from initial note. Continue to encourage compliance and I processed this at length with her. RHETT MATHEW MD DR: GURMEET/yo JOB#: [id number] / [id number]
[2020-10-21 05:51] VITALS: BP 156/71
[2020-10-21] MEDS: LISINOPRIL 10 MG TABLET PO SCH (07:44)
[2020-10-21] MEDS: VENLAFAXINE XR 37.5 MG CAP.ER.24H. PO SCH (07:44)
[2020-10-21] MEDS: risperiDONE 2 MG TABLET. PO SCH (07:44)
[2020-10-21] MEDS: DIVALPROEX 125 MG CAP.SPRINK PO SCH (07:44)
[2020-10-21] MEDS: metFORMIN XR 500 MG TAB.ER.24H PO SCH (07:44)
[2020-10-21] MEDS: risperiDONE ORAL 1 MG/ML 30ml BOTTLE. SL SCH (09:00)
--- NOTE | 2020-10-21 10:58 | TX PLAN ---
Interdisciplinary Tx Plan Admission Information Oct 05, 2020 at 16:15 Legal Status (on Admission): Voluntary DPOA/Guardian Name: Lolis Yip Contact Verified Code Status: Full Code Allergies: Coded Allergies: morphine (Verified Allergy, Intermediate, Unknown, 10/09/20) Diagnoses Primary Diagnosis: Schizoaffective D/O with psychosis; Major Neurocognitive D/O, Vascular Alzheimers with delusions, depression, and behavioral disturbance Reasons for Admission: Delusions, Sig. Change Sleep, Combative, Suspicious/paranoid, Poor impulse control, Other Problem in Patient's Words: Her behaviors continue to increase over the years and is non-compliant with medications. Additional Admission Comments: According to the intake, pt has insomnia, paranoid, delusional and refusing meds. Pt was found on her neighbors porch after wandering away from home, beligerent, uncooperative, screaming at others, combative. Problems Active Problems: Non-compliant with medications delusional verbal aggression periods of combativeness withdrawn to room Inactive Problems: Up ad saba Self-toilets Pt Strengths/Limitations Ability for [place]: Poor Cognitive Functioning/Ability: Fair Communication Skills/Ability: Fair Financial Resources: Fair Insight/Judgement: Poor Intellectual Ability: Fair Physical Health: Fair Social Skills: Poor Stability in Family: Good Stability in School/Work: Poor Verbal Skills: Fair Discharge Criteria Discharge Criteria: Able meet basic life need, Adequate arrangements @DC, Improved behavior, Improved mood/thought Preliminary Discharge Plan Preliminary DC Plan: Current Living Arrange. Special Precautions Fall Risk: Low Initial D/C Plan Pt to return back home with her caregiver once stable. Identified Discharge Needs: Home healthcare Psychiatric services Case Management Currently Utilized Resources Currently Utilized Resources/P: Primary Care Physician Caregiver in the home Referrals Community Resources: Psychiatric services Case Management Identified Problems/Hx/Goals Objectives/Short-Term Goals Short Term Goals: Dec. Aggression, Dec. Hallucination/Delus, Dec. Outbursts, Medication Stabilization, Promote Coping Skill Short Term Goals in Patient's: N/A Interventions/Frequency Staff Interventions/Frequency&: Psychiatrist to assess pt at least 3x per week for medication management. Social Work to assess pt at least 2x per week for recognizing potential barriers to care and discharge planning. Nursing to assess medication effects, behavioral management and completion of 15 minute checks daily. Encourage group participation in activities (if applicable) or 1:1 engagement based off Activity Dept goals. 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 Education: Pt graduated high school (12th grade), received her associates and went on to receive her Bachelors but never finished the last semester of school. Pt is unsure as to what degree pt was striving for. Community Follow-up Primary Care Physician Psychiatry referral Case management referral Community Provider/Family Inpu: A lot of concerns about medications and fear for restraints in which SW assured pt dtr that restraints are illegal and are not an option on this unit. Pt dtr wants good care and a better quality of life for pt once she is able to return home for [facility]. Treatment Plan Explained Patient/Benefits Director had this treatment plan explained to him/her as indicated by the signature below and has been given the opportunity to ask questions and make suggestions: Date: Patient/Benefits Director Signature: Status Update Update Pt is sleeping roughly 7 hours per night and eating 75% of meals. Pt continues to talk to herself and has actually enjoyed having a roommate. Pt is more redirectable and is taking her medications. Pt dtr plans to pick pt up tomorrow in which pt will discharge to her own place and have private duty services along with Home health. It is recommended that pt have psychiatry follow up and case management services. ANITA will continue to work on this with pt deisyrEstella. JASPER DIGGS Oct 21, 2020 10:58
[2020-10-21 15:56] VITALS: BP 177/66
[2020-10-21] MEDS: MIRTAZAPINE 7.5 MG TABLET. PO SCH (19:57)
[2020-10-21] MEDS: ATORVASTATIN CALCIUM 10 MG TABLET. PO SCH (19:58)
[2020-10-21] MEDS: MELATONIN 3 MG TABLET PO SCH (19:58)
[2020-10-21] MEDS: LATANOPROST 0.005% OPHTH SOLUTION 2.5ML BOTTLE. OU SCH (19:58)
--- NOTE | 2020-10-21 21:02 | PDOC ---
Exam Note: Jose Note: Please also refer to the separate dictated note~for this date of service dictated separately.~Patient seen individually. Discussed the patient with Nursing staff reviewed the chart.~Reviewed interim history and current functioning. Reviewed vital signs,~Labs/ Radiology~and current medications noted below. Continue current treatment with the changes noted in the dictated addendum note Assessment: Vital Signs/I&O: Vital Signs Date Time Temp Pulse Resp B/P (MAP) Pulse Ox O2 Delivery O2 Flow Rate FiO2 10/21/20 15:56 97.8 105 22 177/66 (103) 91 10/20/20 20:30 Nasal Cannula 2.0 I & O 10/20/20 10/20/20 10/21/20 15:00 23:00 07:00 Intake Total 600 ml 0 ml Balance 600 ml 0 ml Labs: Laboratory Tests Test 10/21/20 07:42 Glucose (Fingerstick) 116 mg/dL (70-99) H Current Medications: Meds: Laboratory Tests Test 10/21/20 07:42 Glucose (Fingerstick) 116 mg/dL Current Medications Medications (Trade) Dose Ordered Sig/Denise Route PRN Reason Start Time Stop Time Status Last Admin Dose Admin Acetaminophen (Tylenol) 650 mg PRN Q6HRS PRN PO MILD PAIN / TEMP > 100.3'F 10/05/20 16:45 Multi-Ingredient Ointment (Analgesic [place]) 1 uzair PRN QID PRN TP MUSCLE PAIN 10/05/20 16:45 Al Hydroxide/Mg Hydroxide (Mylanta Plus Xs) 15 ml PRN AFTMEALHC PRN PO DYSPEPSIA 10/05/20 16:45 Magnesium Hydroxide (Milk Of Magnesia) 2,400 mg PRN QHS PRN PO CONSTIPATION 10/05/20 16:45 Nicotine (Nicoderm Cq 14mg Patch) 1 patch DAILY TD 10/05/20 17:30 10/15/20 09:07 DC 10/11/20 08:09 Divalproex Sodium (Depakote Er) 250 mg QHS PO 10/05/20 21:00 10/06/20 18:27 DC Latanoprost (Xalatan) 1 drop QHS OU 10/05/20 21:00 10/18/20 20:20 Lisinopril (Prinivil) 10 mg DAILY PO 10/06/20 09:00 10/21/20 07:44 Melatonin (Melatonin) 3 mg QHS PO 10/05/20 21:00 10/21/20 19:58 Olanzapine (ZyPREXA) 10 mg QHS PO 10/05/20 21:00 10/06/20 19:55 DC 10/05/20 19:34 Non-Formulary Medication (Metformin Hcl ) 1,000 mg DAILYWBKFT PO 10/06/20 08:00 10/06/20 10:14 DC Atorvastatin Calcium (Lipitor) 5 mg QHS PO 10/05/20 21:00 10/21/20 19:58 Venlafaxine HCl (Effexor Xr) 37.5 mg DAILY PO 10/06/20 09:00 10/21/20 07:44 Metformin HCl (Glucophage Xr) 1,000 mg DAILYWBKFT PO 10/06/20 12:00 10/21/20 07:44 Risperidone (RisperDAL) 1 mg DAILY SL 10/06/20 20:00 10/08/20 17:08 DC 10/07/20 08:41 Valproic Acid (Depakene) 250 mg DAILY PO 10/06/20 20:00 10/08/20 17:08 DC Divalproex Sodium (Depakote Sprinkles) 500 mg DAILY PO 10/09/20 09:00 10/21/20 07:44 Risperidone (RisperDAL) 1.5 mg DAILY PO 10/09/20 09:00 10/10/20 16:20 DC 10/10/20 08:10 Risperidone (RisperDAL) 1.5 mg 1X ONCE PO 10/09/20 21:15 10/09/20 21:16 DC 10/09/20 21:15 Divalproex Sodium (Depakote Sprinkles) 500 mg 1X ONCE PO 10/09/20 21:15 10/09/20 21:16 DC 10/09/20 21:15 Risperidone (RisperDAL) 2 mg DAILY PO 10/11/20 09:00 10/21/20 07:44 Risperidone (RisperDAL) 1 mg DAILY SL 10/13/20 09:00 10/20/20 16:15 Mirtazapine (Remeron) 7.5 mg QHS PO 10/14/20 22:45 10/21/20 19:57 Nicotine (Nicoderm Cq 14mg Patch) 1 patch PRN DAILY PRN TD SMOKING CESSATION 10/15/20 09:15 Trazodone HCl (Desyrel) 50 mg PRN QHS PRN PO INSOMNIA, MAY REPEAT X1 10/18/20 22:00 I have reviewed the current psychotropics carefully including drug interactions. Risk benefit ratio favors no change other than as noted in my dictated progress note. Diagnosis: Problems: (1) Schizoaffective disorder, bipolar type (2) Mild cognitive impairment (3) Bipolar disorder, current episode mixed, severe, with psychotic features (4) Impulse disorder, unspecified (5) Anxiety disorder, unspecified RHETT MATHEW MD Oct 21, 2020 21:02
[2020-10-22 06:11] VITALS: BP 143/73
[2020-10-22] MEDS: metFORMIN XR 500 MG TAB.ER.24H PO SCH (08:08)
[2020-10-22] MEDS: DIVALPROEX 125 MG CAP.SPRINK PO SCH (08:08)
[2020-10-22] MEDS: VENLAFAXINE XR 37.5 MG CAP.ER.24H. PO SCH (08:08)
[2020-10-22] MEDS: risperiDONE 2 MG TABLET. PO SCH (08:08)
[2020-10-22] MEDS: LISINOPRIL 10 MG TABLET PO SCH (08:09)
[2020-10-22] MEDS: risperiDONE ORAL 1 MG/ML 30ml BOTTLE. SL SCH (09:00)
[2020-10-22 12:43] LABS: BASO % 0 % (0-3); EOS # 0.1 x10^3/uL (0.0-0.7); EOS % 2 % (0-3); HEMATOCRIT 26.9 % (36.0-47.0); HEMOGLOBIN 8.4 g/dL (12.0-15.5); LYMPH # 0.9 x10^3/uL (1.0-4.8); LYMPH % 17 % (24-48); MEAN CORPUSCULAR HEMOGLOBIN 29 pg (25-35); MEAN CORPUSCULAR HGB CONC 31 g/dL (31-37); MEAN CORPUSCULAR VOLUME 91 fL (79-100); MONO # 0.8 x10^3/uL (0.0-1.1); MONO % 16 % (0-9); NEUT # 3.2 x10^3uL (1.8-7.7); NEUT % 64 % (31-73); PLATELET COUNT 188 x10^3/uL (140-400); RED BLOOD COUNT 2.96 x10^6/uL (3.50-5.40); RED CELL DISTRIBUTION WIDTH 13.9 % (11.5-14.5); WHITE BLOOD COUNT 5.1 x10^3/uL (4.0-11.0)
[2020-10-22 12:54] LABS: ALBUMIN 2.5 g/dL (3.4-5.0); ALBUMIN/GLOBULIN RATIO 0.6 (1.0-1.7); CREATININE 0.6 mg/dL (0.6-1.0); GFR 118.6; POTASSIUM 4.2 mmol/L (3.5-5.1); TOTAL BILIRUBIN 0.1 mg/dL (0.2-1.0); TOTAL PROTEIN 6.5 g/dL (6.4-8.2)
[2020-10-22] MEDS ORDERED: DIVA125C2 PO (14:02)
[2020-10-22] MEDS ORDERED: MIRT7.5T8 PO (14:03)
[2020-10-22 15:48] VITALS: BP 138/61
--- NOTE | 2020-10-22 21:01 | PDOC ---
Exam Note: Jose Note: Please also refer to the separate dictated note~for this date of service dictated separately.~Patient seen individually. Discussed the patient with Nursing staff reviewed the chart.~Reviewed interim history and current functioning. Reviewed vital signs,~Labs/ Radiology~and current medications noted below. Continue current treatment with the changes noted in the dictated addendum note Assessment: Vital Signs/I&O: Vital Signs Date Time Temp Pulse Resp B/P (MAP) Pulse Ox O2 Delivery O2 Flow Rate FiO2 10/22/20 15:48 97.2 88 24 138/61 (86) 90 Nasal Cannula 10/20/20 20:30 2.0 I & O 10/21/20 10/21/20 10/22/20 15:00 23:00 07:00 Intake Total 600 ml 720 ml Balance 600 ml 720 ml Labs: Laboratory Tests Test 10/22/20 07:39 10/22/20 12:34 Glucose (Fingerstick) 125 mg/dL (70-99) H White Blood Count 5.1 x10^3/uL (4.0-11.0) Red Blood Count 2.96 x10^6/uL (3.50-5.40) L Hemoglobin 8.4 g/dL (12.0-15.5) L Hematocrit 26.9 % (36.0-47.0) L Mean Corpuscular Volume 91 fL (79-100) Mean Corpuscular Hemoglobin 29 pg (25-35) Mean Corpuscular Hemoglobin Concent 31 g/dL (31-37) Red Cell Distribution Width 13.9 % (11.5-14.5) Platelet Count 188 x10^3/uL (140-400) Neutrophils (%) (Auto) 64 % (31-73) Lymphocytes (%) (Auto) 17 % (24-48) L Monocytes (%) (Auto) 16 % (0-9) H Eosinophils (%) (Auto) 2 % (0-3) Basophils (%) (Auto) 0 % (0-3) Neutrophils # (Auto) 3.2 x10^3uL (1.8-7.7) Lymphocytes # (Auto) 0.9 x10^3/uL (1.0-4.8) L Monocytes # (Auto) 0.8 x10^3/uL (0.0-1.1) Eosinophils # (Auto) 0.1 x10^3/uL (0.0-0.7) Basophils # (Auto) 0.0 x10^3/uL (0.0-0.2) Sodium Level 138 mmol/L (136-145) Potassium Level 4.2 mmol/L (3.5-5.1) Chloride Level 97 mmol/L (98-107) L Carbon Dioxide Level 43 mmol/L (21-32) H Anion Gap -2 (6-14) L Blood Urea Nitrogen 11 mg/dL (7-20) Creatinine 0.6 mg/dL (0.6-1.0) Estimated GFR (Cockcroft-Gault) 118.6 BUN/Creatinine Ratio 18 (6-20) Glucose Level 129 mg/dL (70-99) H Calcium Level 8.0 mg/dL (8.5-10.1) L Total Bilirubin 0.1 mg/dL (0.2-1.0) L Aspartate Amino Transferase (AST) 21 U/L (15-37) Alanine Aminotransferase (ALT) 27 U/L (14-59) Alkaline Phosphatase 52 U/L (46-116) Total Protein 6.5 g/dL (6.4-8.2) Albumin 2.5 g/dL (3.4-5.0) L Albumin/Globulin Ratio 0.6 (1.0-1.7) L Current Medications: Meds: Laboratory Tests Test 10/22/20 07:39 10/22/20 12:34 Glucose (Fingerstick) 125 mg/dL White Blood Count 5.1 x10^3/uL Red Blood Count 2.96 x10^6/uL Hemoglobin 8.4 g/dL Hematocrit 26.9 % Mean Corpuscular Volume 91 fL Mean Corpuscular Hemoglobin 29 pg Mean Corpuscular Hemoglobin Concent 31 g/dL Red Cell Distribution Width 13.9 % Platelet Count 188 x10^3/uL Neutrophils (%) (Auto) 64 % Lymphocytes (%) (Auto) 17 % Monocytes (%) (Auto) 16 % Eosinophils (%) (Auto) 2 % Basophils (%) (Auto) 0 % Neutrophils # (Auto) 3.2 x10^3uL Lymphocytes # (Auto) 0.9 x10^3/uL Monocytes # (Auto) 0.8 x10^3/uL Eosinophils # (Auto) 0.1 x10^3/uL Basophils # (Auto) 0.0 x10^3/uL Sodium Level 138 mmol/L Potassium Level 4.2 mmol/L Chloride Level 97 mmol/L Carbon Dioxide Level 43 mmol/L Anion Gap -2 Blood Urea Nitrogen 11 mg/dL Creatinine 0.6 mg/dL Estimated GFR (Cockcroft-Gault) 118.6 BUN/Creatinine Ratio 18 Glucose Level 129 mg/dL Calcium Level 8.0 mg/dL Total Bilirubin 0.1 mg/dL Aspartate Amino Transf (AST/SGOT) 21 U/L Alanine Aminotransferase (ALT/SGPT) 27 U/L Alkaline Phosphatase 52 U/L Total Protein 6.5 g/dL Albumin 2.5 g/dL Albumin/Globulin Ratio 0.6 Current Medications Medications (Trade) Dose Ordered Sig/Denise Route PRN Reason Start Time Stop Time Status Last Admin Dose Admin Acetaminophen (Tylenol) 650 mg PRN Q6HRS PRN PO MILD PAIN / TEMP > 100.3'F 10/05/20 16:45 10/22/20 16:54 DC Multi-Ingredient Ointment (Analgesic [place]) 1 uzair PRN QID PRN TP MUSCLE PAIN 10/05/20 16:45 10/22/20 16:54 DC Al Hydroxide/Mg Hydroxide (Mylanta Plus Xs) 15 ml PRN AFTMEALHC PRN PO DYSPEPSIA 10/05/20 16:45 10/22/20 16:54 DC Magnesium Hydroxide (Milk Of Magnesia) 2,400 mg PRN QHS PRN PO CONSTIPATION 10/05/20 16:45 10/22/20 16:54 DC Nicotine (Nicoderm Cq 14mg Patch) 1 patch DAILY TD 10/05/20 17:30 10/15/20 09:07 DC 10/11/20 08:09 Divalproex Sodium (Depakote Er) 250 mg QHS PO 10/05/20 21:00 10/06/20 18:27 DC Latanoprost (Xalatan) 1 drop QHS OU 10/05/20 21:00 10/22/20 16:54 DC 10/18/20 20:20 Lisinopril (Prinivil) 10 mg DAILY PO 10/06/20 09:00 10/22/20 16:54 DC 10/22/20 08:09 Melatonin (Melatonin) 3 mg QHS PO 10/05/20 21:00 10/22/20 16:54 DC 10/21/20 19:58 Olanzapine (ZyPREXA) 10 mg QHS PO 10/05/20 21:00 10/06/20 19:55 DC 10/05/20 19:34 Non-Formulary Medication (Metformin Hcl ) 1,000 mg DAILYWBKFT PO 10/06/20 08:00 10/06/20 10:14 DC Atorvastatin Calcium (Lipitor) 5 mg QHS PO 10/05/20 21:00 10/22/20 16:54 DC 10/21/20 19:58 Venlafaxine HCl (Effexor Xr) 37.5 mg DAILY PO 10/06/20 09:00 10/22/20 16:54 DC 10/22/20 08:08 Metformin HCl (Glucophage Xr) 1,000 mg DAILYWBKFT PO 10/06/20 12:00 10/22/20 16:54 DC 10/22/20 08:08 Risperidone (RisperDAL) 1 mg DAILY SL 10/06/20 20:00 10/08/20 17:08 DC 10/07/20 08:41 Valproic Acid (Depakene) 250 mg DAILY PO 10/06/20 20:00 10/08/20 17:08 DC Divalproex Sodium (Depakote Sprinkles) 500 mg DAILY PO 10/09/20 09:00 10/22/20 16:54 DC 10/22/20 08:08 Risperidone (RisperDAL) 1.5 mg DAILY PO 10/09/20 09:00 10/10/20 16:20 DC 10/10/20 08:10 Risperidone (RisperDAL) 1.5 mg 1X ONCE PO 10/09/20 21:15 10/09/20 21:16 DC 10/09/20 21:15 Divalproex Sodium (Depakote Sprinkles) 500 mg 1X ONCE PO 10/09/20 21:15 10/09/20 21:16 DC 10/09/20 21:15 Risperidone (RisperDAL) 2 mg DAILY PO 10/11/20 09:00 10/22/20 16:54 DC 10/22/20 08:08 Risperidone (RisperDAL) 1 mg DAILY SL 10/13/20 09:00 10/22/20 16:54 DC 10/20/20 16:15 Mirtazapine (Remeron) 7.5 mg QHS PO 10/14/20 22:45 10/22/20 16:54 DC 10/21/20 19:57 Nicotine (Nicoderm Cq 14mg Patch) 1 patch PRN DAILY PRN TD SMOKING CESSATION 10/15/20 09:15 10/22/20 16:54 DC Trazodone HCl (Desyrel) 50 mg PRN QHS PRN PO INSOMNIA, MAY REPEAT X1 10/18/20 22:00 10/22/20 16:54 DC I have reviewed the current psychotropics carefully including drug interactions. Risk benefit ratio favors no change other than as noted in my dictated progress note. Diagnosis: Problems: (1) Mild cognitive impairment (2) Schizoaffective disorder, bipolar type (3) Bipolar disorder, current episode mixed, severe, with psychotic features (4) Impulse disorder, unspecified (5) Anxiety disorder, unspecified RHETT MATHEW MD Oct 22, 2020 21:01
--- NOTE | 2020-10-23 07:07 | PDOC ---
Exam Note: Jose Note: This note is a late entry for 10/21/2020 covers elements not covered in my initial note. Subjective: The patient was seen face to face in the morning of 10/21/2020 for a treatment team meeting with Serina Calix, Roshni Haddad and Indu (nephrology social worker), Maryellen Sadler, activity therapy and Nory CEBALLOS. The patient slept 7- 1/4 previous night. Average sleep has been 7 hours. Appetite is 60%. She was somewhat drowsy previous evening but more awake today. We discussed discharge after care plans with a discharge plan for Oct 22. Daughter is arranging for a 24 hour caregiver at home and being in her own place rather than with her mother. Review of Systems: Positive for shortness of breath. No CV, , eye, ENT system symptoms on review. Mental Status Exam: The patient is oriented to herself and situation. I met with her at some length in her room. She has been given her medications mixed in food and fluids, appears less paranoid. Speech is coherent, less pressured. Abstraction is fair. Computation is impaired. No clear suicidal or homicidal ideation. 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 No suicidal or homicidal ideation. Laboratory Data: Reviewed. Impression: Schizoaffective disorder, bipolar type mixed with psychotic features. Anxiety disorder unspecified. Impulse control disorder unspecified. Plan: No change from initial note. Assessment: Vital Signs/I&O: Vital Signs Date Time Temp Pulse Resp B/P (MAP) Pulse Ox O2 Delivery O2 Flow Rate FiO2 10/22/20 15:48 97.2 88 24 138/61 (86) 90 Nasal Cannula 10/20/20 20:30 2.0 I & O 10/22/20 10/22/20 10/23/20 15:00 23:00 07:00 Intake Total 360 ml Balance 360 ml Labs: Laboratory Tests Test 10/22/20 07:39 10/22/20 12:34 Glucose (Fingerstick) 125 mg/dL (70-99) H White Blood Count 5.1 x10^3/uL (4.0-11.0) Red Blood Count 2.96 x10^6/uL (3.50-5.40) L Hemoglobin 8.4 g/dL (12.0-15.5) L Hematocrit 26.9 % (36.0-47.0) L Mean Corpuscular Volume 91 fL (79-100) Mean Corpuscular Hemoglobin 29 pg (25-35) Mean Corpuscular Hemoglobin Concent 31 g/dL (31-37) Red Cell Distribution Width 13.9 % (11.5-14.5) Platelet Count 188 x10^3/uL (140-400) Neutrophils (%) (Auto) 64 % (31-73) Lymphocytes (%) (Auto) 17 % (24-48) L Monocytes (%) (Auto) 16 % (0-9) H Eosinophils (%) (Auto) 2 % (0-3) Basophils (%) (Auto) 0 % (0-3) Neutrophils # (Auto) 3.2 x10^3uL (1.8-7.7) Lymphocytes # (Auto) 0.9 x10^3/uL (1.0-4.8) L Monocytes # (Auto) 0.8 x10^3/uL (0.0-1.1) Eosinophils # (Auto) 0.1 x10^3/uL (0.0-0.7) Basophils # (Auto) 0.0 x10^3/uL (0.0-0.2) Sodium Level 138 mmol/L (136-145) Potassium Level 4.2 mmol/L (3.5-5.1) Chloride Level 97 mmol/L (98-107) L Carbon Dioxide Level 43 mmol/L (21-32) H Anion Gap -2 (6-14) L Blood Urea Nitrogen 11 mg/dL (7-20) Creatinine 0.6 mg/dL (0.6-1.0) Estimated GFR (Cockcroft-Gault) 118.6 BUN/Creatinine Ratio 18 (6-20) Glucose Level 129 mg/dL (70-99) H Calcium Level 8.0 mg/dL (8.5-10.1) L Total Bilirubin 0.1 mg/dL (0.2-1.0) L Aspartate Amino Transferase (AST) 21 U/L (15-37) Alanine Aminotransferase (ALT) 27 U/L (14-59) Alkaline Phosphatase 52 U/L (46-116) Total Protein 6.5 g/dL (6.4-8.2) Albumin 2.5 g/dL (3.4-5.0) L Albumin/Globulin Ratio 0.6 (1.0-1.7) L Current Medications: Meds: Laboratory Tests Test 10/22/20 07:39 10/22/20 12:34 Glucose (Fingerstick) 125 mg/dL White Blood Count 5.1 x10^3/uL Red Blood Count 2.96 x10^6/uL Hemoglobin 8.4 g/dL Hematocrit 26.9 % Mean Corpuscular Volume 91 fL Mean Corpuscular Hemoglobin 29 pg Mean Corpuscular Hemoglobin Concent 31 g/dL Red Cell Distribution Width 13.9 % Platelet Count 188 x10^3/uL Neutrophils (%) (Auto) 64 % Lymphocytes (%) (Auto) 17 % Monocytes (%) (Auto) 16 % Eosinophils (%) (Auto) 2 % Basophils (%) (Auto) 0 % Neutrophils # (Auto) 3.2 x10^3uL Lymphocytes # (Auto) 0.9 x10^3/uL Monocytes # (Auto) 0.8 x10^3/uL Eosinophils # (Auto) 0.1 x10^3/uL Basophils # (Auto) 0.0 x10^3/uL Sodium Level 138 mmol/L Potassium Level 4.2 mmol/L Chloride Level 97 mmol/L Carbon Dioxide Level 43 mmol/L Anion Gap -2 Blood Urea Nitrogen 11 mg/dL Creatinine 0.6 mg/dL Estimated GFR (Cockcroft-Gault) 118.6 BUN/Creatinine Ratio 18 Glucose Level 129 mg/dL Calcium Level 8.0 mg/dL Total Bilirubin 0.1 mg/dL Aspartate Amino Transf (AST/SGOT) 21 U/L Alanine Aminotransferase (ALT/SGPT) 27 U/L Alkaline Phosphatase 52 U/L Total Protein 6.5 g/dL Albumin 2.5 g/dL Albumin/Globulin Ratio 0.6 Current Medications Medications (Trade) Dose Ordered Sig/Denise Route PRN Reason Start Time Stop Time Status Last Admin Dose Admin Acetaminophen (Tylenol) 650 mg PRN Q6HRS PRN PO MILD PAIN / TEMP > 100.3'F 10/05/20 16:45 10/22/20 16:54 DC Multi-Ingredient Ointment (Analgesic [place]) 1 uzair PRN QID PRN TP MUSCLE PAIN 10/05/20 16:45 10/22/20 16:54 DC Al Hydroxide/Mg Hydroxide (Mylanta Plus Xs) 15 ml PRN AFTMEALHC PRN PO DYSPEPSIA 10/05/20 16:45 10/22/20 16:54 DC Magnesium Hydroxide (Milk Of Magnesia) 2,400 mg PRN QHS PRN PO CONSTIPATION 10/05/20 16:45 10/22/20 16:54 DC Nicotine (Nicoderm Cq 14mg Patch) 1 patch DAILY TD 10/05/20 17:30 10/15/20 09:07 DC 10/11/20 08:09 Divalproex Sodium (Depakote Er) 250 mg QHS PO 10/05/20 21:00 10/06/20 18:27 DC Latanoprost (Xalatan) 1 drop QHS OU 10/05/20 21:00 10/22/20 16:54 DC 10/18/20 20:20 Lisinopril (Prinivil) 10 mg DAILY PO 10/06/20 09:00 10/22/20 16:54 DC 10/22/20 08:09 Melatonin (Melatonin) 3 mg QHS PO 10/05/20 21:00 10/22/20 16:54 DC 10/21/20 19:58 Olanzapine (ZyPREXA) 10 mg QHS PO 10/05/20 21:00 10/06/20 19:55 DC 10/05/20 19:34 Non-Formulary Medication (Metformin Hcl ) 1,000 mg DAILYWBKFT PO 10/06/20 08:00 10/06/20 10:14 DC Atorvastatin Calcium (Lipitor) 5 mg QHS PO 10/05/20 21:00 10/22/20 16:54 DC 10/21/20 19:58 Venlafaxine HCl (Effexor Xr) 37.5 mg DAILY PO 10/06/20 09:00 10/22/20 16:54 DC 10/22/20 08:08 Metformin HCl (Glucophage Xr) 1,000 mg DAILYWBKFT PO 10/06/20 12:00 10/22/20 16:54 DC 10/22/20 08:08 Risperidone (RisperDAL) 1 mg DAILY SL 10/06/20 20:00 10/08/20 17:08 DC 10/07/20 08:41 Valproic Acid (Depakene) 250 mg DAILY PO 10/06/20 20:00 10/08/20 17:08 DC Divalproex Sodium (Depakote Sprinkles) 500 mg DAILY PO 10/09/20 09:00 10/22/20 16:54 DC 10/22/20 08:08 Risperidone (RisperDAL) 1.5 mg DAILY PO 10/09/20 09:00 10/10/20 16:20 DC 10/10/20 08:10 Risperidone (RisperDAL) 1.5 mg 1X ONCE PO 10/09/20 21:15 10/09/20 21:16 DC 10/09/20 21:15 Divalproex Sodium (Depakote Sprinkles) 500 mg 1X ONCE PO 10/09/20 21:15 10/09/20 21:16 DC 10/09/20 21:15 Risperidone (RisperDAL) 2 mg DAILY PO 10/11/20 09:00 10/22/20 16:54 DC 10/22/20 08:08 Risperidone (RisperDAL) 1 mg DAILY SL 10/13/20 09:00 10/22/20 16:54 DC 10/20/20 16:15 Mirtazapine (Remeron) 7.5 mg QHS PO 10/14/20 22:45 10/22/20 16:54 DC 10/21/20 19:57 Nicotine (Nicoderm Cq 14mg Patch) 1 patch PRN DAILY PRN TD SMOKING CESSATION 10/15/20 09:15 10/22/20 16:54 DC Trazodone HCl (Desyrel) 50 mg PRN QHS PRN PO INSOMNIA, MAY REPEAT X1 10/18/20 22:00 10/22/20 16:54 DC I have reviewed the current psychotropics carefully including drug interactions. Risk benefit ratio favors no change other than as noted in my dictated progress note. Diagnosis: Problems: (1) Mild cognitive impairment (2) Schizoaffective disorder, bipolar type (3) Bipolar disorder, current episode mixed, severe, with psychotic features (4) Impulse disorder, unspecified (5) Anxiety disorder, unspecified RHETT MATHEW MD Oct 23, 2020 07:07
--- NOTE | 2020-10-23 22:39 | DS ---
DATE OF DISCHARGE: 10/22/2020 DISCHARGE SUMMARY AND PSYCHIATRIC PROGRESS NOTE This late entry date of service 10/22/2020 covers elements not covered in my initial note. REASON FOR ADMISSION: Please refer to the admission history for details. Briefly, the patient is a 74-year-old Afro-Singaporean female referred to us from home after she presented from [facility] Room shortly after she was discharged from [facility]patient Stay and had just returned back home. She has a long history with diagnosis of schizoaffective disorder, bipolar type and was extremely paranoid, delusional, refusing medications, wandering away from home. She was belligerent, uncooperative, screaming at others had marked insomnia, psychotic, had failed outpatient psychiatric interventions resulting in this referral. SIGNIFICANT FINDINGS AND CLINICAL COURSE: Following admission, the patient was seen daily individually by myself from a psychiatric standpoint, medical followup with Dr. Argueta/Dr. Walter. The patient was extremely paranoid, psychotic, hyperverbal, talking to herself, having full conversations, sitting in her room. She was extremely noncompliant with prescribed psychotropics. She is very challenging to treat as a consequence of this. Nevertheless, through significant persistence from nursing staff and assistance from the daughter and being able to give her liquid antipsychotics mixed in her food and fluids. She finally seemed to respond to a combination of Risperdal 2 mg daily, melatonin 3 mg at bedtime, Depakote Sprinkles 500 mg daily, Effexor 37.5 mg daily, trazodone 50 mg at bedtime p.r.n. may repeat x 1, Remeron 7.5 mg p.o. at bedtime prior to discharge. REVIEW OF SYSTEMS: Shortness of breath, on O2 supplements; slight impairment of ambulation. No CV, GI, , eye system symptoms on review. MENTAL STATUS EXAM: Oriented to herself and situation. Speech has some latency, coherent. Abstraction fair, computation impaired, language function intact. Mood and affect appeared to improve. Still anxious, hyperverbal at times, but no suicidal or homicidal ideation. CONDITION AT DISCHARGE: Improved. FINAL DIAGNOSES: Schizoaffective disorder, bipolar type, mixed with psychotic features; anxiety disorder, unspecified; impulse control disorder, unspecified. Mild cognitive impairment. Rest unchanged from admission. DISCHARGE MEDICATIONS: Please refer to the MRAD. DISCHARGE INSTRUCTIONS: Outpatient psychiatric and medical followup as arranged prior to discharge. Time for discharge day management greater than 30 minutes. RHETT MATHEW MD DR: GURMEET/yo JOB#: [id number] / [id number]
== END 2020-10-22 16:40 | disposition home health service (06) | DRG 885 ==
LOC: GEROPSY 16:15
PROVIDERS: ADMIT Psychiatry & Neurology Psychiatry; ATTEND Psychiatry & Neurology Psychiatry
DX: F25.0 Schizoaffective disorder, bipolar type (principal); F01.51 Vascular dementia, unspecified severity, with behavioral disturbance; F02.81 Dementia in other diseases classified elsewhere, unspecified severity, with behavioral disturbance; E11.9 Type 2 diabetes mellitus without complications; F41.9 Anxiety disorder, unspecified; F63.9 Impulse disorder, unspecified; G30.9 Alzheimer's disease, unspecified; G47.00 Insomnia, unspecified; M19.90 Unspecified osteoarthritis, unspecified site; Z20.822 Contact with and (suspected) exposure to COVID-19; I10 Essential (primary) hypertension; Z79.899 Other long term (current) drug therapy; Z91.14 Patient's other noncompliance with medication regimen; Z91.19 Patient's noncompliance with other medical treatment and regimen
CPT/HCPCS: 36415; 80053; 80061; 80164; 81001; 82306; 82607; 82947; 83036; 83540; 83550; 83735; 84436; 84443; 84480; 85025; 85379; 86592; 99406; U0003

== ENCOUNTER 2021-03-18 23:36 | Observation (INO) | payer MEDICARE ==
[~2021-03-18] VITALS: Ht 152.4 cm; Wt 39.1 kg
[~2021-03-18 23:36] MED LIST: ACET325T21 PO; DIVA125C2 PO; DIVA250T PO; LATA2.5D2 OP; LISI10TA16 PO; MAG355OR44 PO; MAGN24003 PO; MELA3TAB4 PO; METF10007 PO; METH28OI2 TP; MIRT7.5T8 PO; NICO1PAT25 TP; OLAN10TA9 PO; PRAV20TA2 PO; RISP1TAB88 PO; RISP2TAB78 PO; TRAZ-120 PO; VENL37.510 PO
--- NOTE | 2021-03-19 01:00 | NUR ---
The patient, GABRIEL RODRIGUEZ, 75 y/o, F admitted by DON CLEMONS MD, to room 125 was given written information regarding hospital policies, unit procedures and contact persons. Pt very agitated and resistive upon admission. Pt refused to answer any questions or allow any cares or assessments that required physical contact. We were able to convince pt to allow us to remove extra bedding from bed transfer from under her. Bed alarm set. Will continue to monitor pt. Will contact for orders.
[2021-03-19] MEDS ORDERED: BUDE10.2 IH (02:31)
[2021-03-19] MEDS ORDERED: AMLO-186 PO (02:31)
[2021-03-19] MEDS ORDERED: OLAN10TA9 PO (02:31)
[2021-03-19] MEDS ORDERED: MIRT-8 PO (02:31)
[2021-03-19] MEDS ORDERED: DIVA-53 PO (02:31)
[2021-03-19] MEDS ORDERED: DOCU100T5 PO (02:31)
[2021-03-19] MEDS ORDERED: PROAIR RESPICL90 MCG INH (02:31)
[2021-03-19] MEDS ORDERED: TIOT18CA IH (02:31)
[2021-03-19] MEDS ORDERED: ASPI-630 PO (02:31)
[2021-03-19] MEDS ORDERED: PRAV20TA2 PO (02:31)
[2021-03-19] MEDS ORDERED: LATA7.5D OU (02:31)
[2021-03-19] MEDS ORDERED: BENA10TA67 PO (02:31)
[2021-03-19] MEDS ORDERED: VENL75TA2 PO (02:31)
[2021-03-19] MEDS ORDERED: OLAN5TAB9 PO (02:31)
[2021-03-19 05:33] VITALS: BP 175/96
--- NOTE | 2021-03-19 05:37 | EKG ---
[address] [address] Test Date: 2021-03-19 Test Time: 05:18:22 Pat Name: GABRIEL RODRIGUEZ Department: Room: 125 A Gender: F Social Welfare Administrator: : 1945 Requested By: DON CLEMONS Order Number: [id number] Reading MD: Terrence Watkins Measurements Intervals [place] Rate: 100 P: 90 VT: 110 QRS: 112 QRSD: 80 T: -7 QT: 372 QTc: 483 Interpretive Statements SINUS RHYTHM ABNORMAL RIGHT AXIS DEVIATION LVH WITH REPOLARIZATION ABNORMALITY QRS(T) CONTOUR ABNORMALITY CONSISTENT WITH HIGH LATERAL INFARCT AGE UNDETERMINED ABNORMAL ECG RI6.01 No previous ECG available for comparison Electronically Signed On 03-23-2021 12:33:54 CDT by Terrence Watkins
[2021-03-19 07:55] LABS: BASO % 0 % (0-3); EOS # 0.1 x10^3/uL (0.0-0.7); EOS % 2 % (0-3); HEMATOCRIT 38.7 % (36.0-47.0); HEMOGLOBIN 12.4 g/dL (12.0-15.5); LYMPH # 1.4 x10^3/uL (1.0-4.8); LYMPH % 19 % (24-48); MEAN CORPUSCULAR HEMOGLOBIN 28 pg (25-35); MEAN CORPUSCULAR HGB CONC 32 g/dL (31-37); MEAN CORPUSCULAR VOLUME 88 fL (79-100); MONO # 0.5 x10^3/uL (0.0-1.1); MONO % 7 % (0-9); NEUT # 5.1 x10^3uL (1.8-7.7); NEUT % 71 % (31-73); PLATELET COUNT 204 x10^3/uL (140-400); RED BLOOD COUNT 4.41 x10^6/uL (3.50-5.40); RED CELL DISTRIBUTION WIDTH 16.2 % (11.5-14.5); WHITE BLOOD COUNT 7.1 x10^3/uL (4.0-11.0)
[2021-03-19 08:07] LABS: ALBUMIN 3.4 g/dL (3.4-5.0); ALBUMIN/GLOBULIN RATIO 0.7 (1.0-1.7); CALCIUM 9.7 mg/dL (8.5-10.1); CREATININE 0.7 mg/dL (0.6-1.0); MAGNESIUM 1.8 mg/dL (1.8-2.4); POTASSIUM 3.9 mmol/L (3.5-5.1); TOTAL BILIRUBIN 0.2 mg/dL (0.2-1.0); TOTAL PROTEIN 8.1 g/dL (6.4-8.2)
[2021-03-19 12:14] LABS: FREE T4 1.09 ng/dL (0.76-1.46); THYROID STIM HORMONE (TSH) 1.27 uIU/mL (0.358-3.740)
--- NOTE | 2021-03-19 14:57 | HP ---
ADMIT DATE: 03/19/2021 HISTORY OF PRESENT ILLNESS: The patient is a 75-year-old -Tanz[place] female patient who was admitted to [address] [place] [address] to be screened for COVID-19, to be [facility] to [facility] as she presented to [facility] with auditory hallucination and is not oriented except to person. She has a past medical history of schizophrenia, but her daughter reports her memory and orientation have significantly declined in the last year. She apparently has been compliant with all medications as she has caregiver who makes sure that she takes all her medications per prescription. On arrival to [facility], she presented there with appropriate dress including jewellery and shoes. She was cooperative, but her thought processing was highly tangential and was unable to respond appropriately to questions regarding her orientation. She stated that she hears voices, which leaves her agitated and then she is unable to eat or sleep. She was brought to the hospital by her daughter who was concerned about her failure to thrive and she was also concerned about future placement at discharge and preferred [facility] in [place]. PAST MEDICAL HISTORY: Significant for generalized osteoarthritis, bipolar disorder, chronic obstructive pulmonary disease, depression, type 2 diabetes mellitus, encopresis, glaucoma, hepatitis C, history of ischemic right middle cerebral artery stroke and hypertension, pancreatic cyst, schizoaffective disorder and urinary incontinence. PAST SURGICAL HISTORY: Significant for breast biopsy, cholecystectomy, colonoscopy, esophagogastroduodenoscopy with biopsy, liver biopsy, right total hip arthroplasty. FAMILY HISTORY: Her father had a heart attack. Mother, sister had heart failure. SOCIAL HISTORY: She lives at home with 24-hour caregiver. She is currently everyday smoker. She started smoking in 1959. She never used smokeless tobacco, does not drink alcohol or use recreational drugs. She retired after working 30 years in [employer] and 15 years in ____. ALLERGIES: She is allergic to MORPHINE. REVIEW OF SYSTEMS: As per history of present illness. MEDICATIONS: She is currently on the following medications: She is on tiotropium bromide 1 capsule twice a day, albuterol sulfate 1 puff every 6 hours. She is on Nicoderm patch 14 mg topically daily, pravastatin 20 mg at bedtime, amlodipine besylate 5 mg once a day, benazepril 10 mg once a day, lisinopril 10 mg once a day, aspirin ____ mg once a day, analgesic balm applied topically every 6 hours, acetaminophen 650 mg every 6 hours, divalproex sodium 500 mg daily, divalproex 500 mg at bedtime, mirtazapine 7.5 mg at bedtime, mirtazapine 30 mg at bedtime, trazodone 50 mg at bedtime, venlafaxine 37.5 mg daily, venlafaxine 75 mg daily, olanzapine 10 mg at bedtime, olanzapine 5 mg daily, risperidone 2 mg daily. She is on Symbicort 160/4.5 two puffs twice a day, latanoprost 1 drop to both eyes at bedtime. She is on Mylanta 15 mL after meals and as needed, Colace 100 mg twice a day, milk of magnesia 30 mL p.o. daily p.r.n. for constipation, metformin 1000 mg p.o. daily, and melatonin 3 mg at bedtime. PHYSICAL EXAMINATION: GENERAL: On examining her, the patient looked pale, very cachectic with a body mass index only 16.8 kilograms per square meter. There was no pallor, jaundice or cyanosis. No lymphadenopathy, no thyromegaly, no jugular venous distention. No lower limb edema. VITAL SIGNS: Her heart rate was 104, blood pressure was 175/96, temperature was 98, respiratory rate was 18 and oxygen saturation was 96% on room air. HEAD, EYES, EARS, NOSE, AND THROAT: Normocephalic, atraumatic. NECK: Supple. HEART: Normal first and second heart sounds. No gallop or murmur. CHEST: Clear to auscultation. No crepitation or rhonchi. ABDOMEN: Scaphoid, soft, nontender. NEUROLOGIC: She is demented; however, she has no obvious lateralizing sign. All cranial nerves intact. She moves all extremities without difficulty. She ambulates without assistance or assistive devices, although she has marked muscle weakness and wasting. LABORATORY DATA: Showed white cell count of 7100, hemoglobin 12.4, hematocrit 38.7, MCV 88 and platelet count of 204,000. Her D-dimer was high at 2.37. Her chemistry showed a serum sodium 143, potassium 3.9, chloride 103, bicarbonate 35, anion gap of 5, BUN 18, creatinine 0.7. Estimated GFR was 99 mL per minute. Her glucose 166, calcium was 9.7, magnesium was 1.8. Total bilirubin, AST, ALT, alkaline phosphatase were normal. Total protein was 8.1, albumin 3.4. ASSESSMENT AND PLAN: So, in summary, this is a 75-year-old -[place] female patient who was admitted with failure to thrive and auditory hallucination that irritates her, agitates her, does not allow her to eat or sleep, all this in a background of schizoaffective disorder. She is here for screening for COVID-19. Once her test becomes available, the patient will be transferred to [facility] for inpatient psychiatric stabilization. DONTRELL/OBED DR: Belen TID: [id number]
--- NOTE | 2021-03-19 15:42 | NUR ---
Patient discharged to [facility]. All patient belongings sent home with patient. No concerns noted on discharge.
--- NOTE | 2021-03-19 23:08 | DS ---
DATE OF DISCHARGE: 03/19/2021 HOSPITAL COURSE: The patient is a 75-year-old -Citizen Of [place] female patient who was admitted with auditory hallucination. She is known to have schizophrenia and also dementia. She is oriented only to self. She was admitted to [address] [place] [address] to be screened for COVID-19 and apparently her test came back negative and a decision was made to admit her to [facility] for inpatient psychiatric stabilization. PHYSICAL EXAMINATION: GENERAL: When I saw her this afternoon, she looked well and was clearly in no apparent respiratory distress. No pallor, jaundice, cyanosis or thyromegaly. No jugular venous distention. No limb edema. VITAL SIGNS: Her heart rate was 104, blood pressure was 175/96, temperature was 98, respiratory rate was 18 and oxygen saturation was 96%. The rest of clinical exam stable, has not really changed. LABORATORY DATA: Showed that her serum iron was 38. TIBC was 347 and iron saturation was 11. Her serum triglycerides was 84. Total cholesterol 218, LDL was 132, VLDL was 16 and HDL was 70 and the ratio was 3. Her TSH was 1.270, free T4 was 1.09 and free T3 was low at 2.06. DISCHARGE MEDICATIONS: She was discharged to [facility] to continue on all her medications that include acetaminophen 650 mg every 6 hours, albuterol sulfate 1 puff every 6 hours, amlodipine 5 mg once a day, aspirin 81 mg once a day, benazepril 5 mg once a day, Symbicort 2 puffs twice a day, divalproex sodium 500 mg twice a day, docusate sodium 100 mg twice a day, latanoprost 1 drop to both eyes at bedtime and she is on Mylanta 15 mL after meals and as needed, milk of magnesia 30 mL p.o. daily p.r.n. for constipation, melatonin 3 mg at bedtime, metformin 1000 mg once a day, analgesic balm 4 times a day, mirtazapine 7.5 mg at bedtime, ____, Nicoderm patch 14 mg topically once a day, ____, olanzapine 5 mg daily, pravastatin sodium 20 mg at bedtime. She is on risperidone 2 mg daily, tiotropium bromide 1 capsule twice a day, trazodone 50 mg once a day at bedtime, venlafaxine 75 mg daily. FINAL DISCHARGE DIAGNOSES: Auditory hallucinations, schizoaffective disorder, bipolar type. The patient has multiple other medical problems including hypertension, glaucoma, hyperlipidemia and type [address]: Belen TID: [id number]
== END 2021-03-19 15:44 ==
LOC: 1 SOUTH 03-19 01:00
PROVIDERS: ADMIT Internal Medicine; ATTEND Internal Medicine
DX: R62.7 Adult failure to thrive (principal); Z20.822 Contact with and (suspected) exposure to COVID-19; R44.0 Auditory hallucinations; F31.9 Bipolar disorder, unspecified; J44.9 Chronic obstructive pulmonary disease, unspecified; E11.9 Type 2 diabetes mellitus without complications; E78.5 Hyperlipidemia, unspecified; F03.90 Unspecified dementia, unspecified severity, without behavioral disturbance, psychotic disturbance, mood disturbance, and anxiety; H40.9 Unspecified glaucoma; I10 Essential (primary) hypertension; M15.9 Polyosteoarthritis, unspecified; F17.210 Nicotine dependence, cigarettes, uncomplicated; Z68.1 Body mass index [BMI] 19.9 or less, adult; Z86.73 Personal history of transient ischemic attack (TIA), and cerebral infarction without residual deficits; Z96.641 Presence of right artificial hip joint; Z79.82 Long term (current) use of aspirin; Z79.84 Long term (current) use of oral hypoglycemic drugs; Z79.899 Other long term (current) drug therapy; Z98.890 Other specified postprocedural states
CPT/HCPCS: 36415; 80053; 80061; 82306; 82607; 83540; 83550; 83735; 84439; 84443; 84481; 85025; 85379; 93005; G0378; G0379; U0003; 83036

== ENCOUNTER 2021-03-19 15:44 | Inpatient (IN) | payer MEDICARE ==
[~2021-03-19] VITALS: Ht 152.4 cm; Wt 49.4 kg
[~2021-03-19 15:44] MED LIST changes: +AMLO-186 PO; +ASPI-630 PO; +BENA10TA67 PO; +BUDE10.2 IH; +DIVA-53 PO; +DOCU100T5 PO; +LATA7.5D OU; +MIRT-8 PO; +OLAN10TA69 PO; -OLAN10TA9 PO; +OLAN5TAB67 PO; +PROAIR RESPICL90 MCG INH; +TIOT18CA IH; +VENL75TA2 PO
[2021-03-19 16:30] VITALS: BP 149/77
[2021-03-19] MEDS ORDERED: MAG HYDROX/AL HYDROX/SIMETH 30 ML ORAL.SUSP PO PRN ×2 (17:00→18:15)
[2021-03-19] MEDS ORDERED: METHYL SALICYLATE/MENTHOL TOPICAL OINTMENT 57GM TUBE. TP PRN ×2 (17:00→19:15)
[2021-03-19] MEDS ORDERED: MAGNESIUM HYDROXIDE 2,400 MG/30 ML ORAL.SUSP. PO PRN ×2 (17:00→19:15)
--- NOTE | 2021-03-19 17:54 | NUR ---
Admission Note with Justification for Admission to [facility] Patient admitted to [facility] for protective oversight for emergency stabilization of acute psychiatric crisis. Pt admitted at 1530 via w/c from [address] [place] [address] unit here at [place] after transfer from [facility] Mode of arrival: w/c Accompanied By: [facility] Staff Precipitating behaviors that initiated intake and admission: at home, hearing voices, agitation, refusing to eat or take her medications, refusing cares, paranoia, auditory hallucinations, thoughts of suicide, insomnia Description of failure of out patient attempts at stabilization in previous setting list behavior and medication trials: ER visit, 24 hr caregiver, med changes Behaviors and assessment findings upon admission: angry and agitated; yelling that she does belong here; scratched a [employer], refused dinner Plan: Admit for protective oversight for adjustment and stabilization of medications, behaviors and mood. Intense treatment regimen including groups, medication adjustments, therapy, consistent regimen for ADL's, self care, and sleep hygiene. Daily monitoring by Inpatient staff, Psychiatry, and Medical Physician.
[2021-03-19] MEDS ORDERED: traZODone 50 MG TABLET. PO PRN (18:15)
[2021-03-19] MEDS ORDERED: ACETAMINOPHEN 325 MG TABLET PO PRN (18:15)
[2021-03-19] MEDS ORDERED: NON FORMULARY ITEM (Albuterol Sulfate (Proair Respiclick) 1 PUFF) INH PRN (18:15)
[2021-03-19] MEDS: NICOTINE 14MG PATCH. TD SCH (18:30)
--- NOTE | 2021-03-19 18:43 | HP ---
ADMIT DATE: 03/19/2021 PSYCHIATRIC ADMISSION HISTORY AND EVALUATION This note covers elements not covered in my initial note of 03/19/2021. IDENTIFYING DATA: The patient is a 75-year-old Afro-Ch[place] female who is referred back to us by her primary care physician and in-home service providers as coordinated by her daughter who is her DPOA on account of an acute exacerbation of her schizoaffective disorder, bipolar type. The patient was hospitalized here back in September of this year, stabilized over an extended hospitalization, returned home rather than a placement, but did not follow up with outpatient psychiatry as recommended. Over the last few days, she has been hearing voices with increased agitation, poor oral intake for food and fluids, being extremely paranoid, psychotic, physically agitated, aggressive. She has failed outpatient psychiatric interventions and is referred back for inpatient psychiatric stabilization due to behaviors that are deemed dangerous, unmanageable as an outpatient. Discussed the patient with nursing staff, LIN Garcia, previously with Serina Claros, volunteer coordinator. CHIEF COMPLAINT: "No." The patient is extremely paranoid, withdrawn, refusing to talk, but earlier seemed to recognize a couple of staff members on the units and the implication was that she is oriented, but refusing to communicate due to her marked psychosis. HISTORY OF PRESENT ILLNESS: The patient has a long history of schizoaffective disorder, bipolar type. She has had mood swings with worsening paranoia. Recent changes in her sleep and appetite as noted, agitation, aggression. No active suicidal or homicidal ideation, but behaviors have been deemed dangerous, since she is residing by herself. PAST PSYCHIATRIC HISTORY: As above. PAST MEDICAL HISTORY: Positive for COPD, hypertension, status post CVA, diabetes mellitus, hepatitis. Accu-Cheks a.c. and at bedtime. CODE STATUS: FULL CODE. DIET: ADA. Takes medications whole. Ambulates independently. CURRENT PSYCHOTROPICS: Depakote 500 mg b.i.d., melatonin 3 mg at bedtime, Remeron 7.5 mg at bedtime, Zyprexa 5 mg a.m. and 10 mg at bedtime, Risperdal 2 mg daily. Trazodone 50 mg at bedtime p.r.n., may repeat x 1. Effexor 37.5 mg daily. FAMILY HISTORY: Noncontributory. SOCIAL HISTORY: The patient's daughter is closely involved in her care. The patient lives independently within home services. No alcohol, drug abuse, physical, sexual, elder abuse history is noted. She is not known to be a perpetrator. Reaction to hospitalization, the patient accepting of it very reluctantly. ASSETS: Supportive family. REVIEW OF SYSTEMS: No CV, , pulmonary, eye, ENT system symptoms on review. Reliability poor. MENTAL STATUS EXAM: Oriented to herself and situation. Speech, relatively nonverbal with me. Abstraction fair. Computation impaired. Language function intact by other observation by nursing staff. Attention span short. Mood and affect depressed, withdrawn and she is very psychotic. Distractible. IMPRESSION: Schizoaffective disorder, bipolar type, mixed with psychotic features; anxiety disorder, unspecified; mild cognitive impairment; impulse control disorder. Rest as above. PLAN: Admit to geropsychiatry unit at [facility]. I will see the patient daily individually from a psychiatric standpoint. Medical followup, Dr. Argueta/Dr. Walter. Continue current psychotropics. Check a valproic acid level. Adjust her antipsychotics. Consider placement at discharge rather than returning home. ESTIMATED LENGTH OF STAY: 7-10 days. DISPOSITION PLANS: As above. GURMEET/ALEA DR: Rhea TID: [id number]
[2021-03-19] MEDS ORDERED: ALBUTEROL SULFATE 2.5 MG/3 ML NEBU. NEB PRN (19:30)
[2021-03-19] MEDS ORDERED: IPRATRPIUM/ALBUTEROL 0.5/2.5MG 3 ML NEBU. NEB SCH (20:00)
[2021-03-19] MEDS: BUDESONIDE 0.5 MG/2 ML NEBU NEB SCH (20:00)
--- NOTE | 2021-03-19 20:36 | NUR ---
Patient has been provided with Practical Counseling for tobacco cessation. It included a face to face interaction and the following was discussed: Recognizing danger situations, Developing coping skills,Basic cessation information. Will follow for discharge needs and discharge planning.
[2021-03-19] MEDS: DIVALPROEX 125 MG CAP.SPRINK PO SCH (21:00)
[2021-03-19] MEDS: OLANZapine 10 MG TABLET PO SCH (21:00)
[2021-03-19] MEDS: MIRTAZAPINE 30 MG TABLET PO SCH (21:00)
[2021-03-19] MEDS: MELATONIN 3 MG TABLET PO SCH (21:00)
[2021-03-19] MEDS ORDERED: LATANOPROST OU SCH (21:00)
[2021-03-19] MEDS: MIRTAZAPINE 7.5 MG TABLET. PO SCH (21:00)
[2021-03-19] MEDS: DOCUSATE SODIUM 100 MG CAPSULE PO SCH (21:00)
[2021-03-19] MEDS ORDERED: NON FORMULARY ITEM (Tiotropium Bromide (Spiriva) 1 CAP) IH SCH (21:00)
[2021-03-19] MEDS ORDERED: NON FORMULARY ITEM (Budesonide/Formoterol Fumarate (Symbicort 160-4.5 Mcg Inhaler) 2 PUFF) IH SCH (21:00)
[2021-03-19] MEDS: LATANOPROST 0.005% OPHTH SOLUTION 2.5ML BOTTLE. OU SCH (21:00)
[2021-03-19] MEDS: ATORVASTATIN CALCIUM 10 MG TABLET. PO SCH (21:00)
--- NOTE | 2021-03-19 22:35 | PDOC ---
Exam Note: Jose Note: Please also refer to the separate dictated note~for this date of service dictated separately.~Patient seen individually. Discussed the patient with Nursing staff reviewed the chart.~Reviewed interim history and current functioning. Reviewed vital signs,~Labs/ Radiology~and current medications noted below. Continue current treatment with the changes noted in the dictated addendum note Assessment: Vital Signs/I&O: Vital Signs Date Time Temp Pulse Resp B/P (MAP) Pulse Ox O2 Delivery O2 Flow Rate FiO2 03/19/21 16:30 97.5 110 18 149/77 (101) 93 Room Air Labs: Laboratory Tests Test 03/19/21 16:50 03/19/21 19:35 Glucose (Fingerstick) 120 mg/dL (70-99) H 114 mg/dL (70-99) H Current Medications: Meds: Current Medications Medications (Trade) Dose Ordered Sig/Denise Route PRN Reason Start Time Stop Time Status Last Admin Dose Admin Melatonin (Melatonin) 3 mg QHS PO 03/19/21 21:00 03/19/21 21:00 Mirtazapine (Remeron) 30 mg QHS PO 03/19/21 21:00 03/19/21 21:00 Olanzapine (ZyPREXA) 10 mg QHS PO 03/19/21 21:00 03/19/21 21:00 Trazodone HCl (Desyrel) 50 mg PRN QHS PRN PO INSOMNIA 03/19/21 18:15 03/19/21 22:10 I have reviewed the current psychotropics carefully including drug interactions. Risk benefit ratio favors no change other than as noted in my dictated progress note. Diagnosis: Problems: (1) Bipolar disorder, current episode mixed, severe, with psychotic features (2) Schizoaffective disorder, bipolar type (3) Impulse disorder, unspecified (4) Mild cognitive impairment (5) Anxiety disorder, unspecified RHETT MATHEW MD Mar 19, 2021 22:35
--- NOTE | 2021-03-20 01:36 | NUR ---
Nursing Note The patient was irritable, paranoid and non compliant this shift. The patient declined to take medication whole and so required medications to be given crushed in pudding. The patient was argumentative during all interactions with this nurse. The patient is currently sleeping in her room.
[2021-03-20 05:53] VITALS: BP 167/77
[2021-03-20 07:42] LABS: VAL ACID 14 mcg/mL (50-100)
[2021-03-20] MEDS: BUDESONIDE 0.5 MG/2 ML NEBU NEB SCH ×2 (07:56→20:00)
[2021-03-20] MEDS ORDERED: NON FORMULARY ITEM (Pravastatin Sodium 20 MG) PO SCH (09:00)
[2021-03-20] MEDS: FLUTICASONE FUROATE 100mcg/INH ELLIPTA INHALER. INH SCH (09:00)
[2021-03-20] MEDS: NICOTINE 14MG PATCH. TD SCH (09:00)
[2021-03-20] MEDS ORDERED: LISINOPRIL 10 MG TABLET PO SCH (09:00)
[2021-03-20] MEDS ORDERED: ALBUTEROL SULFATE 8GM INHALER. INH PRN (09:00)
[2021-03-20] MEDS ORDERED: VENLAFAXINE HCL 37.5 MG PO SCH (09:00)
[2021-03-20] MEDS: OLANZapine 5 MG TABLET PO SCH (09:33)
[2021-03-20] MEDS: risperiDONE 2 MG TABLET. PO SCH (09:33)
[2021-03-20] MEDS: amLODIPine BESYLATE 5 MG TABLET PO SCH (09:33)
[2021-03-20] MEDS: metFORMIN 500 MG TABLET PO SCH (09:33)
[2021-03-20] MEDS: LISINOPRIL 5 MG TABLET. PO SCH (09:34)
[2021-03-20] MEDS: DIVALPROEX 125 MG CAP.SPRINK PO SCH ×2 (09:34→20:49)
[2021-03-20] MEDS: VENLAFAXINE XR 37.5 MG CAP.ER.24H. PO SCH (09:34)
[2021-03-20] MEDS: DOCUSATE SODIUM 100 MG CAPSULE PO SCH ×2 (09:35→20:49)
[2021-03-20] MEDS: ASPIRIN CHEWABLE 81 MG TABLET. PO SCH (09:35)
[2021-03-20] MEDS: IPRATROPIUM/ALBUTEROL 20/100mcg/INH INHALER. INH SCH ×3 (13:58→20:00)
[2021-03-20 16:40] VITALS: BP 171/83
--- NOTE | 2021-03-20 18:14 | NUR ---
Patient has been irritable, withdrawn, and refusing medications throughout this shift. She became agitated when other patients wandered into her room and screamed at the other patients. She stays withdrawn to her room throughout this shift. Will continue to monitor and report to oncoming shift.
[2021-03-20] MEDS: LATANOPROST 0.005% OPHTH SOLUTION 2.5ML BOTTLE. OU SCH (20:45)
[2021-03-20] MEDS: ATORVASTATIN CALCIUM 10 MG TABLET. PO SCH (20:49)
[2021-03-20] MEDS: OLANZapine 10 MG TABLET PO SCH (20:49)
[2021-03-20] MEDS: MELATONIN 3 MG TABLET PO SCH (20:49)
[2021-03-20] MEDS: MIRTAZAPINE 30 MG TABLET PO SCH (20:50)
[2021-03-20 21:29] LABS: BILIRUBIN,URINE NEG (NEG); CLARITY,URINE HAZY; COLOR,URINE YELLOW; GLUCOSE,URINE NEG (NEG)
[2021-03-20 21:30] LABS: BACTERIA,URINE FEW /HPF (0-FEW); NITRITE,URINE NEG (NEG); RBC,URINE OCC /HPF (0-2); SQUAMOUS EPITHELIAL CELL,UR OCC /LPF; UROBILINOGEN,URINE 0.2 mg/dL (0.2 mg/dL)
--- NOTE | 2021-03-20 22:04 | PDOC ---
Exam Note: Jose Note: Please also refer to the separate dictated note~for this date of service dictated separately.~Patient seen individually. Discussed the patient with Nursing staff reviewed the chart.~Reviewed interim history and current functioning. Reviewed vital signs,~Labs/ Radiology~and current medications noted below. Continue current treatment with the changes noted in the dictated addendum note Assessment: Vital Signs/I&O: Vital Signs Date Time Temp Pulse Resp B/P (MAP) Pulse Ox O2 Delivery O2 Flow Rate FiO2 03/20/21 16:40 97.8 103 18 171/83 (112) 91 03/19/21 16:30 Room Air I & O 03/19/21 03/19/21 03/20/21 15:00 23:00 07:00 Intake Total 120 ml Balance 120 ml Labs: Laboratory Tests Test 03/20/21 07:04 03/20/21 07:43 03/20/21 11:51 03/20/21 19:07 Valproic Acid Level 14 mcg/mL (50-100) L Valproic Acid Last Dose Date 03/19/21 Valproic Acid Last Dose Time 0800 Glucose (Fingerstick) 144 mg/dL (70-99) H 297 mg/dL (70-99) H 175 mg/dL (70-99) H Test 03/20/21 21:10 Urine Collection Type Unknown Urine Color Yellow Urine Clarity Hazy Urine pH 7.5 Urine Specific [place] 1.020 Urine Protein 30 mg/dl (NEG-TRACE) Urine Glucose (UA) Neg mg/dL (NEG) Urine Ketones (Stick) 15 mg/dL (NEG) Urine Blood Small (NEG) Urine Nitrite Neg (NEG) Urine Bilirubin Neg (NEG) Urine Urobilinogen Dipstick 0.2 mg/dL (0.2 mg/dL) Urine Leukocyte Esterase Small (NEG) Urine RBC Occ /HPF (0-2) Urine WBC 11-20 /HPF (0-4) Urine Squamous Epithelial Cells Occ /LPF Urine Bacteria Few /HPF (0-FEW) Current Medications: Meds: Current Medications Medications (Trade) Dose Ordered Sig/Denise Route PRN Reason Start Time Stop Time Status Last Admin Dose Admin Amlodipine Besylate (Norvasc) 5 mg DAILY PO 03/20/21 09:00 03/20/21 09:33 Aspirin (Aspirin Chewable) 81 mg DAILY PO 03/20/21 09:00 03/20/21 09:35 Divalproex Sodium (Depakote Sprinkles) 500 mg DAILY PO 03/20/21 09:00 03/20/21 09:34 Olanzapine (ZyPREXA) 5 mg DAILY PO 03/20/21 09:00 03/20/21 09:33 Risperidone (RisperDAL) 2 mg DAILY PO 03/20/21 09:00 03/20/21 09:33 Lisinopril (Prinivil) 5 mg DAILY PO 03/20/21 09:00 03/20/21 09:34 Metformin HCl (Glucophage) 1,000 mg DAILYWBKFT PO 03/20/21 08:00 03/20/21 09:33 Venlafaxine HCl (Effexor Xr) 75 mg DAILY PO 03/20/21 09:00 03/20/21 09:34 I have reviewed the current psychotropics carefully including drug interactions. Risk benefit ratio favors no change other than as noted in my dictated progress note. Diagnosis: Problems: (1) Schizoaffective disorder, bipolar type (2) Anxiety disorder, unspecified (3) Bipolar disorder, current episode mixed, severe, with psychotic features (4) Impulse disorder, unspecified RHETT MATHEW MD Mar 20, 2021 22:04
--- NOTE | 2021-03-20 23:34 | NUR ---
Pt sitting in hallway when approached. Pt yelling out at times, paranoid, and suspicious. Pt resistive with HS medications, I attempted to hide them in chocolate Ensure, pt consumed some but not all of the drink and therefore it is difficult to ascertain how much medication pt ingested.
[2021-03-21 04:06] LABS: HEMOGLOBIN A1C 7.3 % (4.8-5.6)
[2021-03-21 05:33] VITALS: BP 148/67
--- NOTE | 2021-03-21 07:15 | PN ---
DATE: 03/20/2021 SUBJECTIVE: The patient is a 75-year-old -Central [place] female patient who was admitted to [address] [place] [address] to be screened for COVID-19 prior to admission to [facility]. She presented to [facility] with auditory hallucinations, is not oriented except to person and her COVID-19 came back negative and therefore, the patient was admitted to [facility] for inpatient psychiatric stabilization. The patient is very agitated at times and disoriented. OBJECTIVE: GENERAL: On examining her today, she looked well and was clearly in no apparent respiratory distress. There was no pallor, jaundice, cyanosis. No thyromegaly, no jugular venous distention. No limb edema. The patient is extremely cachectic with a body mass index of only 16.8 kilograms/squared meter. The rest of clinical exam is stable, has not really changed. LABORATORY DATA: Her lab work showed her CBC is normal. Her chemistries all normal. Her iron stores are consistent with replete iron. Her TSH, total T4 and free T4 are all normal. PLAN: My plan is to continue with all her current medication. We will follow her closely and decide on further management accordingly. DEMETRIUS/MIRA/PATRICIA DR: Belen TID: [id number]
[2021-03-21] MEDS: metFORMIN 500 MG TABLET PO SCH ×2 (08:00→08:52)
[2021-03-21] MEDS: IPRATROPIUM/ALBUTEROL 20/100mcg/INH INHALER. INH SCH ×4 (08:00→20:00)
[2021-03-21] MEDS: DOCUSATE SODIUM 100 MG CAPSULE PO SCH ×2 (08:52→21:00)
[2021-03-21] MEDS: LISINOPRIL 5 MG TABLET. PO SCH (08:52)
[2021-03-21] MEDS: VENLAFAXINE XR 37.5 MG CAP.ER.24H. PO SCH (08:52)
[2021-03-21] MEDS: amLODIPine BESYLATE 5 MG TABLET PO SCH (09:00)
[2021-03-21] MEDS: FLUTICASONE FUROATE 100mcg/INH ELLIPTA INHALER. INH SCH (09:00)
[2021-03-21] MEDS: DIVALPROEX 125 MG CAP.SPRINK PO SCH (09:00)
[2021-03-21] MEDS: NICOTINE 14MG PATCH. TD SCH (09:00)
[2021-03-21] MEDS: OLANZapine 5 MG TABLET PO SCH (09:00)
[2021-03-21] MEDS: ASPIRIN CHEWABLE 81 MG TABLET. PO SCH (09:00)
[2021-03-21] MEDS: risperiDONE 2 MG TABLET. PO SCH (09:00)
--- NOTE | 2021-03-21 09:05 | PDOC ---
Exam Note: Jose Note: This note is a late entry for 03/20/2021 covers elements not covered in my initial note. Subjective: The patient was seen individually in the evening of 03/20/2021 with Sylvain CEBALLOS, discussed and reviewed the chart. The patient slept 5-3/4 hours previous night. Reportedly the patient has been withdrawn, spends much time in her room. She is somewhat paranoid, suspicious of staff and her medications, resistive to taking her medications. She takes her medications in Ensure. Refused her inhalers and her psychotropics. I addressed with her individually in her room and she states she will be compliant with her Depakote and Zyprexa because she feels this is what is best in the past. She talked about her home situation, states she has no help at home and just eats potato chips and other snacks. She does not cook for herself. We addressed this. Review of Systems: Ambulation impaired. She has poor vision and this may worsen some of her paranoia. No CV, , pulmonary, eye system symptoms on review. She has lost a lot of weight since admission here and states she used to be size 12 to 14 and is down to about size 6. Mental Status Exam: The patient is oriented to herself. Speech is coherent. Abstraction fair. Computation impaired. Language function intact. Attention span short. Mood and affect remains somewhat withdrawn. Laboratory Data: Reviewed. Impression: Schizoaffective disorder, bipolar type mixed with psychotic features. Anxiety disorder unspecified. Impulse control disorder unspecified. Plan: Continue current psychotropics mentioned in my initial note. Depakote 500 mg b.i.d., melatonin 3 mg h.s., Remeron 7.5 mg h.s., Zyprexa 5 mg a.m. and 10 mg h.s., Risperdal 2 mg daily, trazodone h.s. p.r.n., venlafaxine 37.5 mg a day. Check valproic acid level in the morning. Adjust to reach therapeutic l evel. Encourage compliance. Assessment: Vital Signs/I&O: Vital Signs Date Time Temp Pulse Resp B/P (MAP) Pulse Ox O2 Delivery O2 Flow Rate FiO2 03/21/21 08:52 98 148/67 03/21/21 05:33 97.4 18 93 03/19/21 16:30 Room Air I & O 03/20/21 03/20/21 03/21/21 15:00 23:00 07:00 Intake Total 720 ml 600 ml Balance 720 ml 600 ml Labs: Laboratory Tests Test 03/20/21 11:51 03/20/21 19:07 03/20/21 21:10 03/21/21 07:51 Glucose (Fingerstick) 297 mg/dL (70-99) H 175 mg/dL (70-99) H 136 mg/dL (70-99) H Urine Collection Type Unknown Urine Color Yellow Urine Clarity Hazy Urine pH 7.5 Urine Specific Sylvester 1.020 Urine Protein 30 mg/dl (NEG-TRACE) Urine Glucose (UA) Neg mg/dL (NEG) Urine Ketones (Stick) 15 mg/dL (NEG) Urine Blood Small (NEG) Urine Nitrite Neg (NEG) Urine Bilirubin Neg (NEG) Urine Urobilinogen Dipstick 0.2 mg/dL (0.2 mg/dL) Urine Leukocyte Esterase Small (NEG) Urine RBC Occ /HPF (0-2) Urine WBC 11-20 /HPF (0-4) Urine Squamous Epithelial Cells Occ /LPF Urine Bacteria Few /HPF (0-FEW) Current Medications: Meds: Laboratory Tests Test 03/20/21 11:51 03/20/21 19:07 03/20/21 21:10 03/21/21 07:51 Glucose (Fingerstick) 297 mg/dL 175 mg/dL 136 mg/dL Urine Collection Type Unknown Urine Color Yellow Urine Clarity Hazy Urine pH 7.5 Urine Specific Sylvester 1.020 Urine Protein 30 mg/dl Urine Glucose (UA) Neg mg/dL Urine Ketones (Stick) 15 mg/dL Urine Blood Small Urine Nitrite Neg Urine Bilirubin Neg Urine Urobilinogen Dipstick 0.2 mg/dL Urine Leukocyte Esterase Small Urine RBC Occ /HPF Urine WBC 11-20 /HPF Urine Squamous Epithelial Cells Occ /LPF Urine Bacteria Few /HPF Current Medications Medications (Trade) Dose Ordered Sig/Denise Route PRN Reason Start Time Stop Time Status Last Admin Dose Admin Acetaminophen (Tylenol) 650 mg PRN Q6HRS PRN PO MILD PAIN / TEMP > 100.3'F 03/19/21 17:00 Multi-Ingredient Ointment (Analgesic [place]) 1 uzair PRN QID PRN TP MUSCLE PAIN 03/19/21 17:00 03/19/21 19:27 DC Al Hydroxide/Mg Hydroxide (Mylanta Plus Xs) 15 ml PRN AFTMEALHC PRN PO DYSPEPSIA 03/19/21 17:00 03/19/21 19:26 DC Magnesium Hydroxide (Milk Of Magnesia) 2,400 mg PRN QHS PRN PO CONSTIPATION 03/19/21 17:00 03/19/21 19:14 DC Acetaminophen (Tylenol) 650 mg PRN Q6HRS PRN PO PAIN/FEVER 03/19/21 18:15 Cancel Amlodipine Besylate (Norvasc) 5 mg DAILY PO 03/20/21 09:00 03/20/21 09:33 Aspirin (Aspirin Chewable) 81 mg DAILY PO 03/20/21 09:00 03/20/21 09:35 Divalproex Sodium (Depakote Sprinkles) 500 mg DAILY PO 03/20/21 09:00 03/20/21 09:34 Latanoprost (Xalatan) 1 drop QHS OU 03/19/21 21:00 Lisinopril (Prinivil) 10 mg DAILY PO 03/20/21 09:00 03/19/21 19:19 DC Al Hydroxide/Mg Hydroxide (Mylanta Plus Xs) 15 ml PRN AFTMEALHC PRN PO HEARTBURN / GAS 03/19/21 18:15 Melatonin (Melatonin) 3 mg QHS PO 03/19/21 21:00 03/20/21 20:49 Mirtazapine (Remeron) 7.5 mg HS PO 03/19/21 21:00 03/19/21 22:33 DC Mirtazapine (Remeron) 30 mg QHS PO 03/19/21 21:00 03/20/21 20:50 Nicotine (Nicoderm Cq 14mg Patch) 1 patch DAILY TD 03/19/21 18:30 Olanzapine (ZyPREXA) 5 mg DAILY PO 03/20/21 09:00 03/20/21 09:33 Olanzapine (ZyPREXA) 10 mg QHS PO 03/19/21 21:00 03/20/21 20:49 Risperidone (RisperDAL) 2 mg DAILY PO 03/20/21 09:00 03/20/21 09:33 Trazodone HCl (Desyrel) 50 mg PRN QHS PRN PO INSOMNIA 03/19/21 18:15 03/19/21 22:10 Non-Formulary Medication (Albuterol Sulfate (Proair Respiclick)) 1 puff Q6HRS PRN INH SHORTNESS OF BREATH 03/19/21 18:15 UNV Lisinopril (Prinivil) 5 mg DAILY PO 03/20/21 09:00 03/21/21 08:52 Non-Formulary Medication (Budesonide/ Formoterol Fumarate (Symbicort 160-4.5 Mcg Inhaler)) 2 puff BID IH 03/19/21 21:00 UNV Divalproex Sodium (Depakote Sprinkles) 500 mg HS PO 03/19/21 21:00 03/20/21 20:49 Docusate Sodium (Colace) 100 mg BID PO 03/19/21 21:00 03/21/21 08:52 Non-Formulary Medication (Latanoprost/Pf (Latanoprost 0.005% Eye Drop)) 1 drop QHS OU 03/19/21 21:00 UNV Magnesium Hydroxide (Milk Of Magnesia) 2,400 mg PRN DAILY PRN PO CONSTIPATION 03/19/21 19:15 Metformin HCl (Glucophage) 1,000 mg DAILYWBKFT PO 03/20/21 08:00 03/21/21 08:52 Multi-Ingredient Ointment (Analgesic [place]) 1 uzair PRN Q6HRS PRN TP MUSCLE PAIN 03/19/21 19:15 Atorvastatin Calcium (Lipitor) 5 mg QHS PO 03/19/21 21:00 03/20/21 20:49 Non-Formulary Medication (Pravastatin Sodium ) 20 mg DAILY PO 03/20/21 09:00 UNV Non-Formulary Medication (Tiotropium [place] (Spiriva)) 1 cap BID IH 03/19/21 21:00 UNV Non-Formulary Medication (Venlafaxine Hcl (Venlafaxine Hcl Er)) 37.5 mg DAILY PO 03/20/21 09:00 03/19/21 19:11 DC Venlafaxine HCl (Effexor Xr) 75 mg DAILY PO 03/20/21 09:00 03/21/21 08:52 Albuterol/ Ipratropium (Duoneb) 3 ml RTQID NEB 03/19/21 20:00 03/20/21 07:59 DC Budesonide (Pulmicort) 0.5 mg RTBID NEB 03/19/21 20:00 03/21/21 08:08 DC Albuterol Sulfate (Ventolin) 2.5 mg PRN Q6HRS PRN NEB SHORTNESS OF BREATH 03/19/21 19:30 Albuterol/ Ipratropium (Combivent Respimat 20-100 Mcg) 1 puff RTQID INH 03/20/21 12:00 Fluticasone Furoate (ARNUITY 100mcg ELLIPTA) 1 puff DAILY INH 03/20/21 09:00 Albuterol Sulfate (Ventolin Hfa Inhaler) 1 puff PRN Q6HRS PRN INH SHORTNESS OF BREATH 03/20/21 09:00 I have reviewed the current psychotropics carefully including drug interactions. Risk benefit ratio favors no change other than as noted in my dictated progress note. Diagnosis: Problems: (1) Schizoaffective disorder, bipolar type (2) Anxiety disorder, unspecified (3) Bipolar disorder, current episode mixed, severe, with psychotic features (4) Impulse disorder, unspecified RHETT MATHEW MD Mar 21, 2021 09:05
[2021-03-21 16:18] VITALS: BP 135/75
--- NOTE | 2021-03-21 18:04 | NUR ---
Patient has been restless, irritable, defensive, and sarcastic through out this shift. She has stayed withdrawn to her room and is agitated whenever another patient wander into her room. Patient is selective of which medications she will take and refused most of them. Will continue to monitor and report to oncoming shift.
[2021-03-21] MEDS: LATANOPROST 0.005% OPHTH SOLUTION 2.5ML BOTTLE. OU SCH (20:31)
[2021-03-21] MEDS: MELATONIN 3 MG TABLET PO SCH (21:00)
[2021-03-21] MEDS: ATORVASTATIN CALCIUM 10 MG TABLET. PO SCH (21:00)
[2021-03-21] MEDS: MIRTAZAPINE 30 MG TABLET PO SCH (21:00)
[2021-03-21] MEDS: DIVALPROEX ER 500 MG TAB.ER.24H PO SCH (21:00)
[2021-03-21] MEDS: DIVALPROEX ER 250 MG TAB.ER.24H. PO SCH (21:00)
[2021-03-21] MEDS: OLANZapine 10 MG TABLET PO SCH (21:00)
--- NOTE | 2021-03-21 22:05 | PDOC ---
Exam Note: Jose Note: Please also refer to the separate dictated note~for this date of service dictated separately.~Patient seen individually. Discussed the patient with Nursing staff reviewed the chart.~Reviewed interim history and current functioning. Reviewed vital signs,~Labs/ Radiology~and current medications noted below. Continue current treatment with the changes noted in the dictated addendum note Assessment: Vital Signs/I&O: Vital Signs Date Time Temp Pulse Resp B/P (MAP) Pulse Ox O2 Delivery O2 Flow Rate FiO2 03/21/21 16:18 97.6 81 16 135/75 (95) 96 03/19/21 16:30 Room Air I & O 03/20/21 03/20/21 03/21/21 15:00 23:00 07:00 Intake Total 720 ml 600 ml Balance 720 ml 600 ml Labs: Laboratory Tests Test 03/21/21 07:51 Glucose (Fingerstick) 136 mg/dL (70-99) H Current Medications: Meds: Laboratory Tests Test 03/21/21 07:51 Glucose (Fingerstick) 136 mg/dL Current Medications Medications (Trade) Dose Ordered Sig/Denise Route PRN Reason Start Time Stop Time Status Last Admin Dose Admin Acetaminophen (Tylenol) 650 mg PRN Q6HRS PRN PO MILD PAIN / TEMP > 100.3'F 03/19/21 17:00 Multi-Ingredient Ointment (Analgesic [place]) 1 uzair PRN QID PRN TP MUSCLE PAIN 03/19/21 17:00 03/19/21 19:27 DC Al Hydroxide/Mg Hydroxide (Mylanta Plus Xs) 15 ml PRN AFTMEALHC PRN PO DYSPEPSIA 03/19/21 17:00 03/19/21 19:26 DC Magnesium Hydroxide (Milk Of Magnesia) 2,400 mg PRN QHS PRN PO CONSTIPATION 03/19/21 17:00 03/19/21 19:14 DC Acetaminophen (Tylenol) 650 mg PRN Q6HRS PRN PO PAIN/FEVER 03/19/21 18:15 Cancel Amlodipine Besylate (Norvasc) 5 mg DAILY PO 03/20/21 09:00 03/20/21 09:33 Aspirin (Aspirin Chewable) 81 mg DAILY PO 03/20/21 09:00 03/20/21 09:35 Divalproex Sodium (Depakote Sprinkles) 500 mg DAILY PO 03/20/21 09:00 03/21/21 16:33 DC 03/20/21 09:34 Latanoprost (Xalatan) 1 drop QHS OU 03/19/21 21:00 Lisinopril (Prinivil) 10 mg DAILY PO 03/20/21 09:00 03/19/21 19:19 DC Al Hydroxide/Mg Hydroxide (Mylanta Plus Xs) 15 ml PRN AFTMEALHC PRN PO HEARTBURN / GAS 03/19/21 18:15 Melatonin (Melatonin) 3 mg QHS PO 03/19/21 21:00 03/20/21 20:49 Mirtazapine (Remeron) 7.5 mg HS PO 03/19/21 21:00 03/19/21 22:33 DC Mirtazapine (Remeron) 30 mg QHS PO 03/19/21 21:00 03/20/21 20:50 Nicotine (Nicoderm Cq 14mg Patch) 1 patch DAILY TD 03/19/21 18:30 Olanzapine (ZyPREXA) 5 mg DAILY PO 03/20/21 09:00 03/20/21 09:33 Olanzapine (ZyPREXA) 10 mg QHS PO 03/19/21 21:00 03/20/21 20:49 Risperidone (RisperDAL) 2 mg DAILY PO 03/20/21 09:00 03/20/21 09:33 Trazodone HCl (Desyrel) 50 mg PRN QHS PRN PO INSOMNIA 03/19/21 18:15 03/19/21 22:10 Non-Formulary Medication (Albuterol Sulfate (Proair Respiclick)) 1 puff Q6HRS PRN INH SHORTNESS OF BREATH 03/19/21 18:15 UNV Lisinopril (Prinivil) 5 mg DAILY PO 03/20/21 09:00 03/21/21 08:52 Non-Formulary Medication (Budesonide/ Formoterol Fumarate (Symbicort 160-4.5 Mcg Inhaler)) 2 puff BID IH 03/19/21 21:00 UNV Divalproex Sodium (Depakote Sprinkles) 500 mg HS PO 03/19/21 21:00 03/21/21 16:33 DC 03/20/21 20:49 Docusate Sodium (Colace) 100 mg BID PO 03/19/21 21:00 03/21/21 08:52 Non-Formulary Medication (Latanoprost/Pf (Latanoprost 0.005% Eye Drop)) 1 drop QHS OU 03/19/21 21:00 UNV Magnesium Hydroxide (Milk Of Magnesia) 2,400 mg PRN DAILY PRN PO CONSTIPATION 03/19/21 19:15 Metformin HCl (Glucophage) 1,000 mg DAILYWBKFT PO 03/20/21 08:00 03/20/21 09:33 Multi-Ingredient Ointment (Analgesic [place]) 1 uzair PRN Q6HRS PRN TP MUSCLE PAIN 03/19/21 19:15 Atorvastatin Calcium (Lipitor) 5 mg QHS PO 03/19/21 21:00 03/20/21 20:49 Non-Formulary Medication (Pravastatin Sodium ) 20 mg DAILY PO 03/20/21 09:00 UNV Non-Formulary Medication (Tiotropium [place] (Spiriva)) 1 cap BID IH 03/19/21 21:00 UNV Non-Formulary Medication (Venlafaxine Hcl (Venlafaxine Hcl Er)) 37.5 mg DAILY PO 03/20/21 09:00 03/19/21 19:11 DC Venlafaxine HCl (Effexor Xr) 75 mg DAILY PO 03/20/21 09:00 03/21/21 08:52 Albuterol/ Ipratropium (Duoneb) 3 ml RTQID NEB 03/19/21 20:00 03/20/21 07:59 DC Budesonide (Pulmicort) 0.5 mg RTBID NEB 03/19/21 20:00 03/21/21 08:08 DC Albuterol Sulfate (Ventolin) 2.5 mg PRN Q6HRS PRN NEB SHORTNESS OF BREATH 03/19/21 19:30 Albuterol/ Ipratropium (Combivent Respimat 20-100 Mcg) 1 puff RTQID INH 03/20/21 12:00 Fluticasone Furoate (ARNUITY 100mcg ELLIPTA) 1 puff DAILY INH 03/20/21 09:00 Albuterol Sulfate (Ventolin Hfa Inhaler) 1 puff PRN Q6HRS PRN INH SHORTNESS OF BREATH 03/20/21 09:00 Divalproex Sodium (Depakote Er) 1,000 mg QHS PO 03/21/21 21:00 Olanzapine (ZyPREXA ZYDIS) 2.5 mg PRN Q2HRS PRN PO PSYCHOSIS 03/21/21 16:30 Divalproex Sodium (Depakote Er) 250 mg QHS PO 03/21/21 21:00 I have reviewed the current psychotropics carefully including drug interactions. Risk benefit ratio favors no change other than as noted in my dictated progress note. Diagnosis: Problems: (1) Schizoaffective disorder, bipolar type (2) Mild cognitive impairment (3) Anxiety disorder, unspecified (4) Bipolar disorder, current episode mixed, severe, with psychotic features (5) Impulse disorder, unspecified RHETT MATHEW MD Mar 21, 2021 22:05
--- NOTE | 2021-03-21 23:03 | NUR ---
Pt withdrawn to her room when approached. Pt calm but paranoid, and suspicious. Pt refusing to take her HS medications, stating "I need to talk to the doctor before I take anything. Those aren't the right pills, that's not what I take at home". I attempted to educate pt on the importance of medication compliance however, she refused teaching.
[2021-03-22 05:53] VITALS: BP 170/73
--- NOTE | 2021-03-22 06:37 | PDOC ---
Exam Note: Jose Note: This note is a late entry for 03/21/2021 covers elements not covered in my initial note. Subjective: The patient was seen individually in the evening of 03/21/2021 with Sylvain CEBALLOS, discussed and reviewed the chart. The patient slept 5 hours previous night. The patient has been paranoid, somewhat resistive to her medications. She refused Depakote and the daytime wanting it in the evening. We will change to Depakote ER and increase to 1250 mg h.s. Check CBC, CMP, valproic acid level in 3 days. We have also initiated Zyprexa p.r.n. She took half hour to take the Effexor earlier today. Review of Systems: Ambulation impaired. No CV, , pulmonary, eye system symptoms on review. Mental Status Exam: The patient is oriented to herself. Speech is coherent. Abstraction fair. Computation impaired. Language function intact. Attention span short. Mood and affect remains somewhat withdrawn. Laboratory Data: Reviewed. Impression: Schizoaffective disorder, bipolar type mixed with psychotic features. Anxiety disorder unspecified. Impulse control disorder unspecified. Plan: Continue current psychotropics mentioned and as noted above. We will adjust Depakote to reach therapeutic levels. Assessment: Vital Signs/I&O: Vital Signs Date Time Temp Pulse Resp B/P (MAP) Pulse Ox O2 Delivery O2 Flow Rate FiO2 03/22/21 05:53 98.0 104 20 170/73 (105) 93 Room Air I & O 03/21/21 03/21/21 03/22/21 15:00 23:00 07:00 Intake Total 960 ml 240 ml Balance 960 ml 240 ml Labs: Laboratory Tests Test 03/21/21 07:51 Glucose (Fingerstick) 136 mg/dL (70-99) H Current Medications: Meds: Laboratory Tests Test 03/21/21 07:51 Glucose (Fingerstick) 136 mg/dL Current Medications Medications (Trade) Dose Ordered Sig/Denise Route PRN Reason Start Time Stop Time Status Last Admin Dose Admin Acetaminophen (Tylenol) 650 mg PRN Q6HRS PRN PO MILD PAIN / TEMP > 100.3'F 03/19/21 17:00 Multi-Ingredient Ointment (Analgesic [place]) 1 uzair PRN QID PRN TP MUSCLE PAIN 03/19/21 17:00 03/19/21 19:27 DC Al Hydroxide/Mg Hydroxide (Mylanta Plus Xs) 15 ml PRN AFTMEALHC PRN PO DYSPEPSIA 03/19/21 17:00 03/19/21 19:26 DC Magnesium Hydroxide (Milk Of Magnesia) 2,400 mg PRN QHS PRN PO CONSTIPATION 03/19/21 17:00 03/19/21 19:14 DC Acetaminophen (Tylenol) 650 mg PRN Q6HRS PRN PO PAIN/FEVER 03/19/21 18:15 Cancel Amlodipine Besylate (Norvasc) 5 mg DAILY PO 03/20/21 09:00 03/20/21 09:33 Aspirin (Aspirin Chewable) 81 mg DAILY PO 03/20/21 09:00 03/20/21 09:35 Divalproex Sodium (Depakote Sprinkles) 500 mg DAILY PO 03/20/21 09:00 03/21/21 16:33 DC 03/20/21 09:34 Latanoprost (Xalatan) 1 drop QHS OU 03/19/21 21:00 Lisinopril (Prinivil) 10 mg DAILY PO 03/20/21 09:00 03/19/21 19:19 DC Al Hydroxide/Mg Hydroxide (Mylanta Plus Xs) 15 ml PRN AFTMEALHC PRN PO HEARTBURN / GAS 03/19/21 18:15 Melatonin (Melatonin) 3 mg QHS PO 03/19/21 21:00 03/20/21 20:49 Mirtazapine (Remeron) 7.5 mg HS PO 03/19/21 21:00 03/19/21 22:33 DC Mirtazapine (Remeron) 30 mg QHS PO 03/19/21 21:00 03/20/21 20:50 Nicotine (Nicoderm Cq 14mg Patch) 1 patch DAILY TD 03/19/21 18:30 Olanzapine (ZyPREXA) 5 mg DAILY PO 03/20/21 09:00 03/20/21 09:33 Olanzapine (ZyPREXA) 10 mg QHS PO 03/19/21 21:00 03/20/21 20:49 Risperidone (RisperDAL) 2 mg DAILY PO 03/20/21 09:00 03/20/21 09:33 Trazodone HCl (Desyrel) 50 mg PRN QHS PRN PO INSOMNIA 03/19/21 18:15 03/19/21 22:10 Non-Formulary Medication (Albuterol Sulfate (Proair Respiclick)) 1 puff Q6HRS PRN INH SHORTNESS OF BREATH 03/19/21 18:15 UNV Lisinopril (Prinivil) 5 mg DAILY PO 03/20/21 09:00 03/21/21 08:52 Non-Formulary Medication (Budesonide/ Formoterol Fumarate (Symbicort 160-4.5 Mcg Inhaler)) 2 puff BID IH 03/19/21 21:00 UNV Divalproex Sodium (Depakote Sprinkles) 500 mg HS PO 03/19/21 21:00 03/21/21 16:33 DC 03/20/21 20:49 Docusate Sodium (Colace) 100 mg BID PO 03/19/21 21:00 03/21/21 08:52 Non-Formulary Medication (Latanoprost/Pf (Latanoprost 0.005% Eye Drop)) 1 drop QHS OU 03/19/21 21:00 UNV Magnesium Hydroxide (Milk Of Magnesia) 2,400 mg PRN DAILY PRN PO CONSTIPATION 03/19/21 19:15 Metformin HCl (Glucophage) 1,000 mg DAILYWBKFT PO 03/20/21 08:00 03/20/21 09:33 Multi-Ingredient Ointment (Analgesic [place]) 1 uzair PRN Q6HRS PRN TP MUSCLE PAIN 03/19/21 19:15 Atorvastatin Calcium (Lipitor) 5 mg QHS PO 03/19/21 21:00 03/20/21 20:49 Non-Formulary Medication (Pravastatin Sodium ) 20 mg DAILY PO 03/20/21 09:00 UNV Non-Formulary Medication (Tiotropium [place] (Spiriva)) 1 cap BID IH 03/19/21 21:00 UNV Non-Formulary Medication (Venlafaxine Hcl (Venlafaxine Hcl Er)) 37.5 mg DAILY PO 03/20/21 09:00 03/19/21 19:11 DC Venlafaxine HCl (Effexor Xr) 75 mg DAILY PO 03/20/21 09:00 03/21/21 08:52 Albuterol/ Ipratropium (Duoneb) 3 ml RTQID NEB 03/19/21 20:00 03/20/21 07:59 DC Budesonide (Pulmicort) 0.5 mg RTBID NEB 03/19/21 20:00 03/21/21 08:08 DC Albuterol Sulfate (Ventolin) 2.5 mg PRN Q6HRS PRN NEB SHORTNESS OF BREATH 03/19/21 19:30 Albuterol/ Ipratropium (Combivent Respimat 20-100 Mcg) 1 puff RTQID INH 03/20/21 12:00 Fluticasone Furoate (ARNUITY 100mcg ELLIPTA) 1 puff DAILY INH 03/20/21 09:00 Albuterol Sulfate (Ventolin Hfa Inhaler) 1 puff PRN Q6HRS PRN INH SHORTNESS OF BREATH 03/20/21 09:00 Divalproex Sodium (Depakote Er) 1,000 mg QHS PO 03/21/21 21:00 Olanzapine (ZyPREXA ZYDIS) 2.5 mg PRN Q2HRS PRN PO PSYCHOSIS 03/21/21 16:30 Divalproex Sodium (Depakote Er) 250 mg QHS PO 03/21/21 21:00 I have reviewed the current psychotropics carefully including drug interactions. Risk benefit ratio favors no change other than as noted in my dictated progress note. Diagnosis: Problems: (1) Schizoaffective disorder, bipolar type (2) Anxiety disorder, unspecified (3) Impulse disorder, unspecified RHETT MATHEW MD Mar 22, 2021 06:37
[2021-03-22] MEDS: DOCUSATE SODIUM 100 MG CAPSULE PO SCH ×2 (07:23→20:30)
[2021-03-22] MEDS: metFORMIN 500 MG TABLET PO SCH (08:00)
[2021-03-22] MEDS: IPRATROPIUM/ALBUTEROL 20/100mcg/INH INHALER. INH SCH ×4 (08:00→20:00)
[2021-03-22] MEDS: OLANZapine 5 MG TABLET PO SCH (08:34)
[2021-03-22] MEDS: ASPIRIN CHEWABLE 81 MG TABLET. PO SCH ×2 (08:34→09:00)
[2021-03-22] MEDS: VENLAFAXINE XR 37.5 MG CAP.ER.24H. PO SCH (08:34)
[2021-03-22] MEDS: risperiDONE 2 MG TABLET. PO SCH (08:34)
[2021-03-22] MEDS: amLODIPine BESYLATE 5 MG TABLET PO SCH (08:34)
[2021-03-22] MEDS: LISINOPRIL 5 MG TABLET. PO SCH (08:34)
[2021-03-22] MEDS: NICOTINE 14MG PATCH. TD SCH (08:44)
[2021-03-22] MEDS: FLUTICASONE FUROATE 100mcg/INH ELLIPTA INHALER. INH SCH (09:00)
--- NOTE | 2021-03-22 10:15 | NUR ---
ANITA contacted [facility] and spoke with promotional representative Lashell. Pt has a pending authorization number of [id number]. Clinical information must be submitted to for further review. A [facility] promotional representative will call ANITA back with potential admission approval.
--- NOTE | 2021-03-22 10:46 | NUR ---
Pt has been present and visible on the unit. Pt remains disorganized, delusional, and confused. She began the day refusing to take medications crushed/mixed in chocolate Ensure (stating she will only take medications whole with water), and then refusing to take medications whole with water when this nurse did as she requested. Pt remains argumentative about medications, contradicting self in regards to what she would like for her to become compliant, distrusting of staff and paranoid. Morning medications administered SL with staff assistance; pt was compliant with SL administration but then kicked a VAULT WORKER and called all staff present "white bitches." She has spent the rest of the day in her room, not interacting much with others. Plan of care continues, will pass to next shift.
--- NOTE | 2021-03-22 12:30 | NUR ---
Treatment team note: Pt is eating roughly 75% of meals and sleeping on average 5 hours per night. Pt is non-compliant with medications and consistently changes how she wants them. Initially staff was able to get them crushed and in Ensure, then pt wanted them whole with water; she then asked to take them at night but refused. Pt did receive her meds orally syringed this morning and yelled at staff for being "white bitches". Pt continues to be delusional and paranoid; withdrawn to her room. Pt has not attended groups as of yet. SW will contact pt dtr to get updates on pt since last admission and discussed discharge plans. Pt is [employer]; pre-auth was received this morning with clinicals submitted.
--- NOTE | 2021-03-22 13:44 | NUR ---
WEEKLY ACTIVITY THERAPY NOTE Date of Admission: 03/19/21 Date of AT Assessment: TBD Precipitating behaviors that initiated intake and admission: at home, hearing voices, agitation, refusing to eat or take her medications, refusing cares, paranoia, auditory hallucinations, thoughts of suicide, insomnia Goal aimed: TBD Initial Goal: TBD Weekly progress towards goal: NA Group participation level: NA Weekly highlights: arrived on [facility] Behaviors observed: new patient Plan: meet/assess pt Beneficial adaptations:
--- NOTE | 2021-03-22 14:20 | NUR ---
ACTIVITY THERAPY ASSESSMENT completed based on notes, observation, and interview. Pt was willing to answer some assessment questions but said that she wanted her commercial real estate attorney before she answered any more questions towards the end of assessment. AT attempted to ask pt what activities she enjoys and she said nothing and her energy level is low. AT explained groups to pt and she said that she would not be interested in those groups. Pt said that the groups were on the news and she didn't want to be a part of that. AT started to ask orientation questions and pt said 'I told you I didn't want to answer any questions.' AT offered pt magazines to which she declined. Initial goal aimed to increase stress management and relaxation skills. Pt will participate in at least three individual or group Activity Therapy sessions before discharge.
--- NOTE | 2021-03-22 14:38 | NUR ---
ANITA returned call to Lolis who wanted to see how pt is doing and discuss with ANITA plans for discharge. Pt bo is up at the end of the month and is not safe to discharge home. Lolis reports that since discharge pt has completely refused medications and has even turned against the caregiver who has attempted to give her medications, cook her meals, clean, etc. Pt has called the police on the caregiver multiple times for being an intruder and stating that she is being held hostage. Pt dtr then had to step in and do some housework on top of being accused of "trying to poison her food". NAITA will plan to work with pt dtr and the Human rep on finding a more appropriate placement for pt. Pt dtr is concerned that this is no longer a Schizoaffective issue but wonders if it is more Dementia coming through based off pt behaviors. Lolis reports that with Schizoaffective pt could answer all the cognitive questions easy but in the last few months, pt cannot state the day of the week, year or month. She has no clue what city she is in or where she is at when questioned. ANITA will pass this information on to the psychiatrist. Lolis will send ANITA via email her list of facilities in which ANITA will be able to send referrals and work on placement.
--- NOTE | 2021-03-22 14:51 | NUR ---
SW received voicemail from Stefanie authorizing pt five days for continued stay from 03/19 until 03/23 with a concurrent review on 03/24. .
[2021-03-22 15:54] VITALS: BP 115/69
--- NOTE | 2021-03-22 16:45 | NUR ---
PSYCHOSOCIAL ASSESSMENT ADMISSION DATE: 03/19/21 CONTACT INFORMATION: DPOA/Guardian Contact Name: Lolis Yip Contact Address: [place] [address] Contact Phone #: ETHNIC ORIGIN: REASONS FOR ADMISSION: ADDITIONAL ADMISSION COMMENTS: According to the intake, pt is paranoid, suspicious, delusional, disorganized, combative, and non-compliant with medications. REASON FOR ADMISSION IN PATIENT/FAMILY'S OWN WORDS: This may be more Dementia than Schizoaffective because she cannot seem to turn the corner. PATIENT/FAMILY EXPECTATIONS FOR ADMISSION: Medication and behavioral management LIVING SITUATION: Patient lives with: Other living arrangements: lives at home with a 09/04 caregiver Contact Name: Contact Address: [place] [address] Contact Phone #: Contact Fax #: FAMILY RELATIONS: Marital Status: # of Marriages: 2 # of Children: 1 [facility] Family Support: Concerned Cooperative Involved in DC Planning Additional Comments r/t Family: Pt has been and on 2 separate occasions. While she gets along with both parties, she has more contact with her 2nd . Pt has one daughter (Lolis) from her first marriage. SIGNIFICANT PSYCHIATRIC/MEDICAL HISTORY: Psychiatric/Treatment History: This is pt second admission to [facility]; her first admission in September 2020. Pt has had multiple admissions to [facility] and [facility] carrying a previous diagnosis of Dementia. Pertinent Family History: According to pt dtr, there is a history of mental illness on the maternal side but was not able to specify/clarify what diagnosis run in the family. HISTORICAL DATA: Childhood Environment: Supportive Childhood Environment Additional Comments: Pt was born and raised mostly in [place]. When pt was older, she moved to [place]. Pt father has ; however, her mother is living at the age of 93. Pt mother is very active and lives in her own home; recently she broke her hip and does appear to have memory deficits from the incident. Pt has 6 siblings: 1 sister has and the rest live in [place] and [place]. Trauma History: None Is Trauma: Additional Comments: None noted Drug Abuse History last 12 months: No Comment: PERSONAL HISTORY: Vocational history: Pt worked many years at [employer] and after 25 years, retired. 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. service: N Baptist background: Pt was raised as Taoist and used to be very strong in her Luda. Pt dtr reports that as pt behaviors increased, pt stopped attending services and no longer seems interested or motivated to practice her Luda. Sexual orientation: Heterosexual Educational Level: Pt graduated high school (12th grade), received her associates and went on to receive her Bachelors but never finished the last semester of school. Pt is unsure as to what degree pt was striving for. Past/Present Interests/Hobbies: Pt used to really love watching game shows and Law and Order on TV. It appears pt no longer watches tv. Pt dtr said that pt also loved to shop. Financial support/resources: Residential/Pension Social Security Monthly income: Person handling finances: Pt dtr handles all finances for pt. Do you have a history of legal problems: N Cultural considerations: None SOCIAL RELATIONSHIPS-CURRENT/PAST: Psychiatrist: None PCP: Dr. Loreto Goetz Counselor/Therapist: None Veterans' Administration: None Support Group: None Mesmerist/Clocksmith: None Other relationships: support from a 09/04 caregiver STRENGTHS & WEAKNESSES: Patient's strengths: Good family support Good verbal skills Ambulatory Other patient strengths: Patient's weaknesses: Impulsive Physically Aggressive Verbally Aggressive Other patient weaknesses: Long psychiatric history PRELIMINARY PLAN OF TREATMENT: Preliminary plan: Dec. Hallucination/Delus Promote Coping Skill Medication Stabilization Monitor Med Effects Dec. Outbursts Other preliminary treatment comments: DISCHARGE PLANNING: Discharge planning/disposition: Placement Needed Additional discharge needs identified: Referrals for a higher level of care is needed. ADDITIONAL INFORMATION: Other Pertinent Data: Psychosocial completed from prior PSA. Some information was changed to reflect current living situation and behaviors that prompted pt admission to [facility].
[2021-03-22] MEDS: LATANOPROST 0.005% OPHTH SOLUTION 2.5ML BOTTLE. OU SCH (20:30)
[2021-03-22] MEDS: ATORVASTATIN CALCIUM 10 MG TABLET. PO SCH (21:00)
[2021-03-22] MEDS: DIVALPROEX ER 500 MG TAB.ER.24H PO SCH (21:00)
[2021-03-22] MEDS: DIVALPROEX ER 250 MG TAB.ER.24H. PO SCH (21:00)
[2021-03-22] MEDS: OLANZapine 10 MG TABLET PO SCH (21:02)
[2021-03-22] MEDS: MIRTAZAPINE 30 MG TABLET PO SCH (21:02)
[2021-03-22] MEDS: MELATONIN 3 MG TABLET PO SCH (21:02)
[2021-03-22] MEDS ORDERED: DIVALPROEX 125 MG CAP.SPRINK PO SCH (22:00)
--- NOTE | 2021-03-22 22:09 | PDOC ---
Exam Note: Jose Note: Please also refer to the separate dictated note~for this date of service dictated separately.~Patient seen individually. Discussed the patient with Nursing staff reviewed the chart.~Reviewed interim history and current functioning. Reviewed vital signs,~Labs/ Radiology~and current medications noted below. Continue current treatment with the changes noted in the dictated addendum note Assessment: Vital Signs/I&O: Vital Signs Date Time Temp Pulse Resp B/P (MAP) Pulse Ox O2 Delivery O2 Flow Rate FiO2 03/22/21 15:54 98.0 100 20 115/69 (84) 92 Room Air I & O 03/21/21 03/21/21 03/22/21 15:00 23:00 07:00 Intake Total 960 ml 240 ml Balance 960 ml 240 ml Labs: Laboratory Tests Test 03/22/21 07:36 Glucose (Fingerstick) 153 mg/dL (70-99) H Current Medications: Meds: Laboratory Tests Test 03/22/21 07:36 Glucose (Fingerstick) 153 mg/dL Current Medications Medications (Trade) Dose Ordered Sig/Denise Route PRN Reason Start Time Stop Time Status Last Admin Dose Admin Acetaminophen (Tylenol) 650 mg PRN Q6HRS PRN PO MILD PAIN / TEMP > 100.3'F 03/19/21 17:00 Multi-Ingredient Ointment (Analgesic [place]) 1 uzair PRN QID PRN TP MUSCLE PAIN 03/19/21 17:00 03/19/21 19:27 DC Al Hydroxide/Mg Hydroxide (Mylanta Plus Xs) 15 ml PRN AFTMEALHC PRN PO DYSPEPSIA 03/19/21 17:00 03/19/21 19:26 DC Magnesium Hydroxide (Milk Of Magnesia) 2,400 mg PRN QHS PRN PO CONSTIPATION 03/19/21 17:00 03/19/21 19:14 DC Acetaminophen (Tylenol) 650 mg PRN Q6HRS PRN PO PAIN/FEVER 03/19/21 18:15 Cancel Amlodipine Besylate (Norvasc) 5 mg DAILY PO 03/20/21 09:00 03/22/21 08:34 Aspirin (Aspirin Chewable) 81 mg DAILY PO 03/20/21 09:00 03/20/21 09:35 Divalproex Sodium (Depakote Sprinkles) 500 mg DAILY PO 03/20/21 09:00 03/21/21 16:33 DC 03/20/21 09:34 Latanoprost (Xalatan) 1 drop QHS OU 03/19/21 21:00 Lisinopril (Prinivil) 10 mg DAILY PO 03/20/21 09:00 03/19/21 19:19 DC Al Hydroxide/Mg Hydroxide (Mylanta Plus Xs) 15 ml PRN AFTMEALHC PRN PO HEARTBURN / GAS 03/19/21 18:15 Melatonin (Melatonin) 3 mg QHS PO 03/19/21 21:00 03/22/21 21:02 Mirtazapine (Remeron) 7.5 mg HS PO 03/19/21 21:00 03/19/21 22:33 DC Mirtazapine (Remeron) 30 mg QHS PO 03/19/21 21:00 03/22/21 21:02 Nicotine (Nicoderm Cq 14mg Patch) 1 patch DAILY TD 03/19/21 18:30 03/22/21 17:55 DC Olanzapine (ZyPREXA) 5 mg DAILY PO 03/20/21 09:00 03/22/21 08:34 Olanzapine (ZyPREXA) 10 mg QHS PO 03/19/21 21:00 03/22/21 21:02 Risperidone (RisperDAL) 2 mg DAILY PO 03/20/21 09:00 03/22/21 08:34 Trazodone HCl (Desyrel) 50 mg PRN QHS PRN PO INSOMNIA 03/19/21 18:15 03/19/21 22:10 Non-Formulary Medication (Albuterol Sulfate (Proair Respiclick)) 1 puff Q6HRS PRN INH SHORTNESS OF BREATH 03/19/21 18:15 UNV Lisinopril (Prinivil) 5 mg DAILY PO 03/20/21 09:00 03/22/21 08:34 Non-Formulary Medication (Budesonide/ Formoterol Fumarate (Symbicort 160-4.5 Mcg Inhaler)) 2 puff BID IH 03/19/21 21:00 UNV Divalproex Sodium (Depakote Sprinkles) 500 mg HS PO 03/19/21 21:00 03/21/21 16:33 DC 03/20/21 20:49 Docusate Sodium (Colace) 100 mg BID PO 03/19/21 21:00 03/21/21 08:52 Non-Formulary Medication (Latanoprost/Pf (Latanoprost 0.005% Eye Drop)) 1 drop QHS OU 03/19/21 21:00 UNV Magnesium Hydroxide (Milk Of Magnesia) 2,400 mg PRN DAILY PRN PO CONSTIPATION 03/19/21 19:15 Metformin HCl (Glucophage) 1,000 mg DAILYWBKFT PO 03/20/21 08:00 03/22/21 08:00 Multi-Ingredient Ointment (Analgesic [place]) 1 uzair PRN Q6HRS PRN TP MUSCLE PAIN 03/19/21 19:15 Atorvastatin Calcium (Lipitor) 5 mg QHS PO 03/19/21 21:00 03/20/21 20:49 Non-Formulary Medication (Pravastatin Sodium ) 20 mg DAILY PO 03/20/21 09:00 UNV Non-Formulary Medication (Tiotropium [place] (Spiriva)) 1 cap BID IH 03/19/21 21:00 UNV Non-Formulary Medication (Venlafaxine Hcl (Venlafaxine Hcl Er)) 37.5 mg DAILY PO 03/20/21 09:00 03/19/21 19:11 DC Venlafaxine HCl (Effexor Xr) 75 mg DAILY PO 03/20/21 09:00 03/22/21 17:33 DC 03/22/21 08:34 Albuterol/ Ipratropium (Duoneb) 3 ml RTQID NEB 03/19/21 20:00 03/20/21 07:59 DC Budesonide (Pulmicort) 0.5 mg RTBID NEB 03/19/21 20:00 03/21/21 08:08 DC Albuterol Sulfate (Ventolin) 2.5 mg PRN Q6HRS PRN NEB SHORTNESS OF BREATH 03/19/21 19:30 Albuterol/ Ipratropium (Combivent Respimat 20-100 Mcg) 1 puff RTQID INH 03/20/21 12:00 Fluticasone Furoate (ARNUITY 100mcg ELLIPTA) 1 puff DAILY INH 03/20/21 09:00 Albuterol Sulfate (Ventolin Hfa Inhaler) 1 puff PRN Q6HRS PRN INH SHORTNESS OF BREATH 03/20/21 09:00 Divalproex Sodium (Depakote Er) 1,000 mg QHS PO 03/21/21 21:00 03/22/21 21:48 DC Olanzapine (ZyPREXA ZYDIS) 2.5 mg PRN Q2HRS PRN PO PSYCHOSIS 03/21/21 16:30 Divalproex Sodium (Depakote Er) 250 mg QHS PO 03/21/21 21:00 03/22/21 21:48 DC Venlafaxine HCl (Effexor) 75 mg DAILY PO 03/23/21 09:00 Divalproex Sodium (Depakote Sprinkles) 1,250 mg HS PO 03/22/21 22:00 I have reviewed the current psychotropics carefully including drug interactions. Risk benefit ratio favors no change other than as noted in my dictated progress note. Diagnosis: Problems: (1) Bipolar disorder, current episode mixed, severe, with psychotic features (2) Anxiety disorder, unspecified (3) Schizoaffective disorder, bipolar type (4) Impulse disorder, unspecified RHETT MATHEW MD Mar 22, 2021 22:09
--- NOTE | 2021-03-22 23:06 | NUR ---
Pt withdrawn to room when approached. Pt hostile, agitated, argumentative, and delusional. Pt refusing HS medications, stating "you're not giving me the right medicines. I want to talk to the doctor." I reminded pt that Dr. Conway had made rounds this evening but she did not recall and said that she never spoke to him. Pt then asked me what medications I was giving her. I showed her all of her medications, which were still in the packages. Pt adamantly refused to take them, stating "That is not Depakote. The Depakote I take is burgundy, like your fingernails. I'm not taking none of that." At this point, I advised pt that I would have to administer her medications in a syringe, to which she replied "And you'll get your ass kicked. Try it". I then crushed the ordered Melatonin, Remeron, and Zyprexa. Medications then administered via oral syringe. Pt combative, hitting, scratching, and attempting to bite staff. After staff left pt's room, pt began yelling, walked down the hallway where she proceeded to throw warm water on the [place]. Staff escorted pt back t her room. After a while, pt asked another staff member for a chocolate Ensure. Prior to giving the drink to the pt, Depakote Sprinkles were hidden in the Ensure. Pt was given the drink and was witnessed by staff drinking it. Staff re-checked pt after several minutes and noted that pt had consumed the Ensure with the Depakote in it.
[2021-03-23 05:58] VITALS: BP 122/66
[2021-03-23 07:15] LABS: BASO % 1 % (0-3); EOS # 0.1 x10^3/uL (0.0-0.7); EOS % 3 % (0-3); HEMATOCRIT 29.6 % (36.0-47.0); HEMOGLOBIN 9.6 g/dL (12.0-15.5); LYMPH # 1.2 x10^3/uL (1.0-4.8); LYMPH % 30 % (24-48); MEAN CORPUSCULAR HEMOGLOBIN 29 pg (25-35); MEAN CORPUSCULAR HGB CONC 33 g/dL (31-37); MEAN CORPUSCULAR VOLUME 87 fL (79-100); MONO # 0.6 x10^3/uL (0.0-1.1); MONO % 13 % (0-9); NEUT # 2.2 x10^3uL (1.8-7.7); NEUT % 53 % (31-73); PLATELET COUNT 157 x10^3/uL (140-400); RED BLOOD COUNT 3.39 x10^6/uL (3.50-5.40); WHITE BLOOD COUNT 4.1 x10^3/uL (4.0-11.0)
[2021-03-23 07:18] LABS: ALBUMIN 2.8 g/dL (3.4-5.0); ALBUMIN/GLOBULIN RATIO 0.7 (1.0-1.7); CALCIUM 8.8 mg/dL (8.5-10.1); CREATININE 0.6 mg/dL (0.6-1.0); GFR 118.2; POTASSIUM 4.3 mmol/L (3.5-5.1); TOTAL BILIRUBIN 0.1 mg/dL (0.2-1.0); TOTAL PROTEIN 6.6 g/dL (6.4-8.2)
[2021-03-23 07:40] LABS: VAL ACID 86 mcg/mL (50-100)
[2021-03-23] MEDS: metFORMIN 500 MG TABLET PO SCH (08:00)
[2021-03-23] MEDS: IPRATROPIUM/ALBUTEROL 20/100mcg/INH INHALER. INH SCH ×4 (08:00→20:00)
--- NOTE | 2021-03-23 08:59 | PDOC ---
Exam Note: Jose Note: This note is a late entry for 03/22/2021 covers elements not covered in my initial note. Subjective: The patient was seen individually in the morning of 03/22/2021 for a treatment team meeting with Indu Hunter (social security specialist), Marina, activity therapy and Socorro discussed and reviewed the chart. The patient slept 4-1/4 hours previous night. The patient remains paranoid, suspicious, somewhat delusional, resistive to medications. They had to be syringed at one point. She is using rather derogatory slurs towards the female nursing staff, kicking the nursing aids, combative in showers. Review of Systems: Ambulation impaired. No CV, , pulmonary, eye system symptoms on review. Mental Status Exam: The patient is reasonably oriented. Speech is coherent, has some latency. Abstraction fair. Computation impaired. Language function intact. Attention span short. Mood and affect somewhat withdrawn, paranoid. Laboratory Data: Reviewed. Impression: Schizoaffective disorder, bipolar type mixed with psychotic features. Anxiety disorder unspecified. Impulse control disorder unspecified. Plan: Given the patients marked resistance to take medications and difficulty with giving the Effexor XR capsule, we will go ahead and change this to Effexor tablet 75 mg a day which can be crushed. Continue rest of the psychotropics unchanged. Valproic acid level will be repeated and adjusted to reach therapeutic level. Assessment: Vital Signs/I&O: Vital Signs Date Time Temp Pulse Resp B/P (MAP) Pulse Ox O2 Delivery O2 Flow Rate FiO2 03/23/21 05:58 97.9 97 16 122/66 (84) 92 Room Air I & O 03/22/21 03/22/21 03/23/21 15:00 23:00 07:00 Intake Total 720 ml 240 ml 0 ml Balance 720 ml 240 ml 0 ml Labs: Laboratory Tests Test 03/23/21 06:30 03/23/21 07:55 White Blood Count 4.1 x10^3/uL (4.0-11.0) Red Blood Count 3.39 x10^6/uL (3.50-5.40) L Hemoglobin 9.6 g/dL (12.0-15.5) L Hematocrit 29.6 % (36.0-47.0) L Mean Corpuscular Volume 87 fL (79-100) Mean Corpuscular Hemoglobin 29 pg (25-35) Mean Corpuscular Hemoglobin Concent 33 g/dL (31-37) Red Cell Distribution Width 16.0 % (11.5-14.5) H Platelet Count 157 x10^3/uL (140-400) Neutrophils (%) (Auto) 53 % (31-73) Lymphocytes (%) (Auto) 30 % (24-48) Monocytes (%) (Auto) 13 % (0-9) H Eosinophils (%) (Auto) 3 % (0-3) Basophils (%) (Auto) 1 % (0-3) Neutrophils # (Auto) 2.2 x10^3uL (1.8-7.7) Lymphocytes # (Auto) 1.2 x10^3/uL (1.0-4.8) Monocytes # (Auto) 0.6 x10^3/uL (0.0-1.1) Eosinophils # (Auto) 0.1 x10^3/uL (0.0-0.7) Basophils # (Auto) 0.0 x10^3/uL (0.0-0.2) Sodium Level 144 mmol/L (136-145) Potassium Level 4.3 mmol/L (3.5-5.1) Chloride Level 104 mmol/L (98-107) Carbon Dioxide Level 34 mmol/L (21-32) H Anion Gap 6 (6-14) Blood Urea Nitrogen 22 mg/dL (7-20) H Creatinine 0.6 mg/dL (0.6-1.0) Estimated GFR (Cockcroft-Gault) 118.2 BUN/Creatinine Ratio 37 (6-20) H Glucose Level 133 mg/dL (70-99) H Calcium Level 8.8 mg/dL (8.5-10.1) Total Bilirubin 0.1 mg/dL (0.2-1.0) L Aspartate Amino Transferase (AST) 26 U/L (15-37) Alanine Aminotransferase (ALT) 18 U/L (14-59) Alkaline Phosphatase 50 U/L (46-116) Total Protein 6.6 g/dL (6.4-8.2) Albumin 2.8 g/dL (3.4-5.0) L Albumin/Globulin Ratio 0.7 (1.0-1.7) L Valproic Acid Level 86 mcg/mL (50-100) Valproic Acid Last Dose Date 03/22/21 Valproic Acid Last Dose Time 2100 Glucose (Fingerstick) 133 mg/dL (70-99) H Current Medications: Meds: Laboratory Tests Test 03/23/21 06:30 03/23/21 07:55 White Blood Count 4.1 x10^3/uL Red Blood Count 3.39 x10^6/uL Hemoglobin 9.6 g/dL Hematocrit 29.6 % Mean Corpuscular Volume 87 fL Mean Corpuscular Hemoglobin 29 pg Mean Corpuscular Hemoglobin Concent 33 g/dL Red Cell Distribution Width 16.0 % Platelet Count 157 x10^3/uL Neutrophils (%) (Auto) 53 % Lymphocytes (%) (Auto) 30 % Monocytes (%) (Auto) 13 % Eosinophils (%) (Auto) 3 % Basophils (%) (Auto) 1 % Neutrophils # (Auto) 2.2 x10^3uL Lymphocytes # (Auto) 1.2 x10^3/uL Monocytes # (Auto) 0.6 x10^3/uL Eosinophils # (Auto) 0.1 x10^3/uL Basophils # (Auto) 0.0 x10^3/uL Sodium Level 144 mmol/L Potassium Level 4.3 mmol/L Chloride Level 104 mmol/L Carbon Dioxide Level 34 mmol/L Anion Gap 6 Blood Urea Nitrogen 22 mg/dL Creatinine 0.6 mg/dL Estimated GFR (Cockcroft-Gault) 118.2 BUN/Creatinine Ratio 37 Glucose Level 133 mg/dL Calcium Level 8.8 mg/dL Total Bilirubin 0.1 mg/dL Aspartate Amino Transf (AST/SGOT) 26 U/L Alanine Aminotransferase (ALT/SGPT) 18 U/L Alkaline Phosphatase 50 U/L Total Protein 6.6 g/dL Albumin 2.8 g/dL Albumin/Globulin Ratio 0.7 Valproic Acid (Depakene) Level 86 mcg/mL Valproic Acid Last Dose Date 03/22/21 Valproic Acid Last Dose Time 2100 Glucose (Fingerstick) 133 mg/dL Current Medications Medications (Trade) Dose Ordered Sig/Denise Route PRN Reason Start Time Stop Time Status Last Admin Dose Admin Acetaminophen (Tylenol) 650 mg PRN Q6HRS PRN PO MILD PAIN / TEMP > 100.3'F 03/19/21 17:00 Multi-Ingredient Ointment (Analgesic [place]) 1 uzair PRN QID PRN TP MUSCLE PAIN 03/19/21 17:00 03/19/21 19:27 DC Al Hydroxide/Mg Hydroxide (Mylanta Plus Xs) 15 ml PRN AFTMEALHC PRN PO DYSPEPSIA 03/19/21 17:00 03/19/21 19:26 DC Magnesium Hydroxide (Milk Of Magnesia) 2,400 mg PRN QHS PRN PO CONSTIPATION 03/19/21 17:00 03/19/21 19:14 DC Acetaminophen (Tylenol) 650 mg PRN Q6HRS PRN PO PAIN/FEVER 03/19/21 18:15 Cancel Amlodipine Besylate (Norvasc) 5 mg DAILY PO 03/20/21 09:00 03/22/21 08:34 Aspirin (Aspirin Chewable) 81 mg DAILY PO 03/20/21 09:00 03/20/21 09:35 Divalproex Sodium (Depakote Sprinkles) 500 mg DAILY PO 03/20/21 09:00 03/21/21 16:33 DC 03/20/21 09:34 Latanoprost (Xalatan) 1 drop QHS OU 03/19/21 21:00 Lisinopril (Prinivil) 10 mg DAILY PO 03/20/21 09:00 03/19/21 19:19 DC Al Hydroxide/Mg Hydroxide (Mylanta Plus Xs) 15 ml PRN AFTMEALHC PRN PO HEARTBURN / GAS 03/19/21 18:15 Melatonin (Melatonin) 3 mg QHS PO 03/19/21 21:00 03/22/21 21:02 Mirtazapine (Remeron) 7.5 mg HS PO 03/19/21 21:00 03/19/21 22:33 DC Mirtazapine (Remeron) 30 mg QHS PO 03/19/21 21:00 03/22/21 21:02 Nicotine (Nicoderm Cq 14mg Patch) 1 patch DAILY TD 03/19/21 18:30 03/22/21 17:55 DC Olanzapine (ZyPREXA) 5 mg DAILY PO 03/20/21 09:00 03/22/21 08:34 Olanzapine (ZyPREXA) 10 mg QHS PO 03/19/21 21:00 03/22/21 21:02 Risperidone (RisperDAL) 2 mg DAILY PO 03/20/21 09:00 03/22/21 08:34 Trazodone HCl (Desyrel) 50 mg PRN QHS PRN PO INSOMNIA 03/19/21 18:15 03/19/21 22:10 Non-Formulary Medication (Albuterol Sulfate (Proair Respiclick)) 1 puff Q6HRS PRN INH SHORTNESS OF BREATH 03/19/21 18:15 UNV Lisinopril (Prinivil) 5 mg DAILY PO 03/20/21 09:00 03/22/21 08:34 Non-Formulary Medication (Budesonide/ Formoterol Fumarate (Symbicort 160-4.5 Mcg Inhaler)) 2 puff BID IH 03/19/21 21:00 UNV Divalproex Sodium (Depakote Sprinkles) 500 mg HS PO 03/19/21 21:00 03/21/21 16:33 DC 03/20/21 20:49 Docusate Sodium (Colace) 100 mg BID PO 03/19/21 21:00 03/21/21 08:52 Non-Formulary Medication (Latanoprost/Pf (Latanoprost 0.005% Eye Drop)) 1 drop QHS OU 03/19/21 21:00 UNV Magnesium Hydroxide (Milk Of Magnesia) 2,400 mg PRN DAILY PRN PO CONSTIPATION 03/19/21 19:15 Metformin HCl (Glucophage) 1,000 mg DAILYWBKFT PO 03/20/21 08:00 03/22/21 08:00 Multi-Ingredient Ointment (Analgesic [place]) 1 uzair PRN Q6HRS PRN TP MUSCLE PAIN 03/19/21 19:15 Atorvastatin Calcium (Lipitor) 5 mg QHS PO 03/19/21 21:00 03/20/21 20:49 Non-Formulary Medication (Pravastatin Sodium ) 20 mg DAILY PO 03/20/21 09:00 UNV Non-Formulary Medication (Tiotropium [place] (Spiriva)) 1 cap BID IH 03/19/21 21:00 UNV Non-Formulary Medication (Venlafaxine Hcl (Venlafaxine Hcl Er)) 37.5 mg DAILY PO 03/20/21 09:00 03/19/21 19:11 DC Venlafaxine HCl (Effexor Xr) 75 mg DAILY PO 03/20/21 09:00 03/22/21 17:33 DC 03/22/21 08:34 Albuterol/ Ipratropium (Duoneb) 3 ml RTQID NEB 03/19/21 20:00 03/20/21 07:59 DC Budesonide (Pulmicort) 0.5 mg RTBID NEB 03/19/21 20:00 03/21/21 08:08 DC Albuterol Sulfate (Ventolin) 2.5 mg PRN Q6HRS PRN NEB SHORTNESS OF BREATH 03/19/21 19:30 Albuterol/ Ipratropium (Combivent Respimat 20-100 Mcg) 1 puff RTQID INH 03/20/21 12:00 Fluticasone Furoate (ARNUITY 100mcg ELLIPTA) 1 puff DAILY INH 03/20/21 09:00 Albuterol Sulfate (Ventolin Hfa Inhaler) 1 puff PRN Q6HRS PRN INH SHORTNESS OF BREATH 03/20/21 09:00 Divalproex Sodium (Depakote Er) 1,000 mg QHS PO 03/21/21 21:00 03/22/21 21:48 DC Olanzapine (ZyPREXA ZYDIS) 2.5 mg PRN Q2HRS PRN PO PSYCHOSIS 03/21/21 16:30 Divalproex Sodium (Depakote Er) 250 mg QHS PO 03/21/21 21:00 03/22/21 21:48 DC Venlafaxine HCl (Effexor) 75 mg DAILY PO 03/23/21 09:00 Divalproex Sodium (Depakote Sprinkles) 1,250 mg HS PO 03/22/21 22:00 03/22/21 22:00 Current Medications Medications (Trade) Dose Ordered Sig/Denise Route PRN Reason Start Time Stop Time Status Last Admin Dose Admin Divalproex Sodium (Depakote Sprinkles) 1,250 mg HS PO 03/22/21 22:00 03/22/21 22:00 I have reviewed the current psychotropics carefully including drug interactions. Risk benefit ratio favors no change other than as noted in my dictated progress note. Diagnosis: Problems: (1) Bipolar disorder, current episode mixed, severe, with psychotic features (2) Impulse disorder, unspecified (3) Anxiety disorder, unspecified (4) Schizoaffective disorder, bipolar type RHETT MATHEW MD Mar 23, 2021 08:59
[2021-03-23] MEDS: amLODIPine BESYLATE 5 MG TABLET PO SCH (09:00)
[2021-03-23] MEDS: risperiDONE 2 MG TABLET. PO SCH (09:00)
[2021-03-23] MEDS: LISINOPRIL 5 MG TABLET. PO SCH (09:00)
[2021-03-23] MEDS: FLUTICASONE FUROATE 100mcg/INH ELLIPTA INHALER. INH SCH (09:00)
[2021-03-23] MEDS: VENLAFAXINE 75 MG TABLET. PO SCH (09:00)
[2021-03-23] MEDS: ASPIRIN CHEWABLE 81 MG TABLET. PO SCH (09:00)
[2021-03-23] MEDS: OLANZapine 5 MG TABLET PO SCH (09:00)
[2021-03-23] MEDS: DOCUSATE SODIUM 100 MG CAPSULE PO SCH ×2 (09:00→20:10)
--- NOTE | 2021-03-23 11:27 | TX PLAN ---
Interdisciplinary Tx Plan Admission Information Mar 19, 2021 at 15:44 Legal Status (on Admission): Voluntary DPOA/Guardian Name: Lolis Yip Contact Other Contact Verified Code Status: Full Code Allergies: Coded Allergies: morphine (Verified Allergy, Intermediate, Unknown, 10/09/20) Diagnoses Primary Diagnosis: Schizoaffective D/O, Bipolar type, mixed with psychotic features unspecified mild cognitive impairment Reasons for Admission: Delusions, Relation/conflict, Hallucinations, Suspicious/paranoid, Confusion/Disoriented, Poor impulse control Problem in Patient's Words: This may be more Dementia than Schizoaffective because she cannot seem to turn the corner. Additional Admission Comments: According to the intake, pt is paranoid, suspicious, delusional, disorganized, combative, and non-compliant with medications. Problems Active Problems: delusional disorganized combative non-compliant with medications Inactive Problems: eating and sleeping okay Pt Strengths/Limitations Ability for Logan: Poor Cognitive Functioning/Ability: Fair Communication Skills/Ability: Fair Financial Resources: Fair Insight/Judgement: Poor Intellectual Ability: Fair Physical Health: Fair Social Skills: Poor Stability in Family: Good Stability in School/Work: Poor Verbal Skills: Fair Discharge Criteria Discharge Criteria: No need for close observ., Adequate arrangements @DC, Improved behavior, Improved mood/thought Preliminary Discharge Plan Preliminary DC Plan: Placement Needed Initial D/C Plan Pt is not able to discharge home; lease is up at the end of the month and need further care than can be provided. Identified Discharge Needs: Referrals for a higher level of care is needed. Currently Utilized Resources Currently Utilized Resources/P: Primary Care Physician Identified Problems/Hx/Goals Objectives/Short-Term Goals Short Term Goals: Dec. Hallucination/Delus, Dec. Outbursts, Medication Stabilization, Monitor Med Effects, Promote Coping Skill Short Term Goals in Patient's: N/A Interventions/Frequency Staff Interventions/Frequency&: Psychiatrist to assess pt at least 3x per week for medication management. Social Work to assess pt at least 2x per week to identify barriers to care and discharge planning for placement. Nursing to assess medication effects, behavior modification and completion of 15 minute checks daily. Encourage participation in group activities (if applicable) or 1:1 engagement based off Activity Dept goals. History Vocational History: Pt worked many years at [employer] and after 25 years, retired. 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 Education: Pt graduated high school (12th grade), received her associates and went on to receive her Bachelors but never finished the last semester of school. Pt is unsure as to what degree pt was striving for. Community Follow-up Primary Care Physician Referrals to higher level of care Treatment Plan Explained Patient/Spotter Driver had this treatment plan explained to him/her as indicated by the signature below and has been given the opportunity to ask questions and make suggestions: Date: Patient/Spotter Driver Signature: Patient/Spotter Driver Decline: No (Pt family if very involved in care.) JASPER DIGGS Mar 23, 2021 11:27
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
[2021-03-23 16:24] VITALS: BP 162/89
[2021-03-23] MEDS: MELATONIN 3 MG TABLET PO SCH (20:10)
[2021-03-23] MEDS: OLANZapine 10 MG TABLET PO SCH (20:10)
[2021-03-23] MEDS: LATANOPROST 0.005% OPHTH SOLUTION 2.5ML BOTTLE. OU SCH (20:10)
[2021-03-23] MEDS: MIRTAZAPINE 30 MG TABLET PO SCH (20:10)
[2021-03-23] MEDS: ATORVASTATIN CALCIUM 10 MG TABLET. PO SCH (20:11)
[2021-03-23] MEDS ORDERED: DIVALPROEX 125 MG CAP.SPRINK PO SCH (21:00)
--- NOTE | 2021-03-23 21:47 | PDOC ---
Exam Note: Jose Note: Please also refer to the separate dictated note~for this date of service dictated separately.~Patient seen individually. Discussed the patient with Nursing staff reviewed the chart.~Reviewed interim history and current functioning. Reviewed vital signs,~Labs/ Radiology~and current medications noted below. Continue current treatment with the changes noted in the dictated addendum note Assessment: Vital Signs/I&O: Vital Signs Date Time Temp Pulse Resp B/P (MAP) Pulse Ox O2 Delivery O2 Flow Rate FiO2 03/23/21 16:24 98.2 65 18 162/89 (113) 90 03/23/21 05:58 Room Air I & O 03/22/21 03/22/21 03/23/21 14:59 22:59 06:59 Intake Total 720 ml 240 ml 0 ml Balance 720 ml 240 ml 0 ml Labs: Laboratory Tests Test 03/23/21 06:30 03/23/21 07:55 White Blood Count 4.1 x10^3/uL (4.0-11.0) Red Blood Count 3.39 x10^6/uL (3.50-5.40) L Hemoglobin 9.6 g/dL (12.0-15.5) L Hematocrit 29.6 % (36.0-47.0) L Mean Corpuscular Volume 87 fL (79-100) Mean Corpuscular Hemoglobin 29 pg (25-35) Mean Corpuscular Hemoglobin Concent 33 g/dL (31-37) Red Cell Distribution Width 16.0 % (11.5-14.5) H Platelet Count 157 x10^3/uL (140-400) Neutrophils (%) (Auto) 53 % (31-73) Lymphocytes (%) (Auto) 30 % (24-48) Monocytes (%) (Auto) 13 % (0-9) H Eosinophils (%) (Auto) 3 % (0-3) Basophils (%) (Auto) 1 % (0-3) Neutrophils # (Auto) 2.2 x10^3uL (1.8-7.7) Lymphocytes # (Auto) 1.2 x10^3/uL (1.0-4.8) Monocytes # (Auto) 0.6 x10^3/uL (0.0-1.1) Eosinophils # (Auto) 0.1 x10^3/uL (0.0-0.7) Basophils # (Auto) 0.0 x10^3/uL (0.0-0.2) Sodium Level 144 mmol/L (136-145) Potassium Level 4.3 mmol/L (3.5-5.1) Chloride Level 104 mmol/L (98-107) Carbon Dioxide Level 34 mmol/L (21-32) H Anion Gap 6 (6-14) Blood Urea Nitrogen 22 mg/dL (7-20) H Creatinine 0.6 mg/dL (0.6-1.0) Estimated GFR (Cockcroft-Gault) 118.2 BUN/Creatinine Ratio 37 (6-20) H Glucose Level 133 mg/dL (70-99) H Calcium Level 8.8 mg/dL (8.5-10.1) Total Bilirubin 0.1 mg/dL (0.2-1.0) L Aspartate Amino Transferase (AST) 26 U/L (15-37) Alanine Aminotransferase (ALT) 18 U/L (14-59) Alkaline Phosphatase 50 U/L (46-116) Total Protein 6.6 g/dL (6.4-8.2) Albumin 2.8 g/dL (3.4-5.0) L Albumin/Globulin Ratio 0.7 (1.0-1.7) L Valproic Acid Level 86 mcg/mL (50-100) Valproic Acid Last Dose Date 03/22/21 Valproic Acid Last Dose Time 2100 Glucose (Fingerstick) 133 mg/dL (70-99) H Current Medications: Meds: Laboratory Tests Test 03/23/21 06:30 03/23/21 07:55 White Blood Count 4.1 x10^3/uL Red Blood Count 3.39 x10^6/uL Hemoglobin 9.6 g/dL Hematocrit 29.6 % Mean Corpuscular Volume 87 fL Mean Corpuscular Hemoglobin 29 pg Mean Corpuscular Hemoglobin Concent 33 g/dL Red Cell Distribution Width 16.0 % Platelet Count 157 x10^3/uL Neutrophils (%) (Auto) 53 % Lymphocytes (%) (Auto) 30 % Monocytes (%) (Auto) 13 % Eosinophils (%) (Auto) 3 % Basophils (%) (Auto) 1 % Neutrophils # (Auto) 2.2 x10^3uL Lymphocytes # (Auto) 1.2 x10^3/uL Monocytes # (Auto) 0.6 x10^3/uL Eosinophils # (Auto) 0.1 x10^3/uL Basophils # (Auto) 0.0 x10^3/uL Sodium Level 144 mmol/L Potassium Level 4.3 mmol/L Chloride Level 104 mmol/L Carbon Dioxide Level 34 mmol/L Anion Gap 6 Blood Urea Nitrogen 22 mg/dL Creatinine 0.6 mg/dL Estimated GFR (Cockcroft-Gault) 118.2 BUN/Creatinine Ratio 37 Glucose Level 133 mg/dL Calcium Level 8.8 mg/dL Total Bilirubin 0.1 mg/dL Aspartate Amino Transf (AST/SGOT) 26 U/L Alanine Aminotransferase (ALT/SGPT) 18 U/L Alkaline Phosphatase 50 U/L Total Protein 6.6 g/dL Albumin 2.8 g/dL Albumin/Globulin Ratio 0.7 Valproic Acid (Depakene) Level 86 mcg/mL Valproic Acid Last Dose Date 03/22/21 Valproic Acid Last Dose Time 2100 Glucose (Fingerstick) 133 mg/dL Current Medications Medications (Trade) Dose Ordered Sig/Denise Route PRN Reason Start Time Stop Time Status Last Admin Dose Admin Acetaminophen (Tylenol) 650 mg PRN Q6HRS PRN PO MILD PAIN / TEMP > 100.3'F 03/19/21 17:00 Multi-Ingredient Ointment (Analgesic [place]) 1 uzair PRN QID PRN TP MUSCLE PAIN 03/19/21 17:00 03/19/21 19:27 DC Al Hydroxide/Mg Hydroxide (Mylanta Plus Xs) 15 ml PRN AFTMEALHC PRN PO DYSPEPSIA 03/19/21 17:00 03/19/21 19:26 DC Magnesium Hydroxide (Milk Of Magnesia) 2,400 mg PRN QHS PRN PO CONSTIPATION 03/19/21 17:00 03/19/21 19:14 DC Acetaminophen (Tylenol) 650 mg PRN Q6HRS PRN PO PAIN/FEVER 03/19/21 18:15 Cancel Amlodipine Besylate (Norvasc) 5 mg DAILY PO 03/20/21 09:00 03/23/21 09:00 Aspirin (Aspirin Chewable) 81 mg DAILY PO 03/20/21 09:00 03/23/21 09:00 Divalproex Sodium (Depakote Sprinkles) 500 mg DAILY PO 03/20/21 09:00 03/21/21 16:33 DC 03/20/21 09:34 Latanoprost (Xalatan) 1 drop QHS OU 03/19/21 21:00 Lisinopril (Prinivil) 10 mg DAILY PO 03/20/21 09:00 03/19/21 19:19 DC Al Hydroxide/Mg Hydroxide (Mylanta Plus Xs) 15 ml PRN AFTMEALHC PRN PO HEARTBURN / GAS 03/19/21 18:15 Melatonin (Melatonin) 3 mg QHS PO 03/19/21 21:00 03/23/21 20:10 Mirtazapine (Remeron) 7.5 mg HS PO 03/19/21 21:00 03/19/21 22:33 DC Mirtazapine (Remeron) 30 mg QHS PO 03/19/21 21:00 03/23/21 20:10 Nicotine (Nicoderm Cq 14mg Patch) 1 patch DAILY TD 03/19/21 18:30 03/22/21 17:55 DC Olanzapine (ZyPREXA) 5 mg DAILY PO 03/20/21 09:00 03/23/21 16:47 DC 03/23/21 09:00 Olanzapine (ZyPREXA) 10 mg QHS PO 03/19/21 21:00 03/23/21 20:10 Risperidone (RisperDAL) 2 mg DAILY PO 03/20/21 09:00 03/23/21 09:00 Trazodone HCl (Desyrel) 50 mg PRN QHS PRN PO INSOMNIA 03/19/21 18:15 03/19/21 22:10 Non-Formulary Medication (Albuterol Sulfate (Proair Respiclick)) 1 puff Q6HRS PRN INH SHORTNESS OF BREATH 03/19/21 18:15 UNV Lisinopril (Prinivil) 5 mg DAILY PO 03/20/21 09:00 03/23/21 09:00 Non-Formulary Medication (Budesonide/ Formoterol Fumarate (Symbicort 160-4.5 Mcg Inhaler)) 2 puff BID IH 03/19/21 21:00 UNV Divalproex Sodium (Depakote Sprinkles) 500 mg HS PO 03/19/21 21:00 03/21/21 16:33 DC 03/20/21 20:49 Docusate Sodium (Colace) 100 mg BID PO 03/19/21 21:00 03/21/21 08:52 Non-Formulary Medication (Latanoprost/Pf (Latanoprost 0.005% Eye Drop)) 1 drop QHS OU 03/19/21 21:00 UNV Magnesium Hydroxide (Milk Of Magnesia) 2,400 mg PRN DAILY PRN PO CONSTIPATION 03/19/21 19:15 Metformin HCl (Glucophage) 1,000 mg DAILYWBKFT PO 03/20/21 08:00 03/23/21 08:00 Multi-Ingredient Ointment (Analgesic [place]) 1 uzair PRN Q6HRS PRN TP MUSCLE PAIN 03/19/21 19:15 Atorvastatin Calcium (Lipitor) 5 mg QHS PO 03/19/21 21:00 03/23/21 20:11 Non-Formulary Medication (Pravastatin Sodium ) 20 mg DAILY PO 03/20/21 09:00 UNV Non-Formulary Medication (Tiotropium [place] (Spiriva)) 1 cap BID IH 03/19/21 21:00 UNV Non-Formulary Medication (Venlafaxine Hcl (Venlafaxine Hcl Er)) 37.5 mg DAILY PO 03/20/21 09:00 03/19/21 19:11 DC Venlafaxine HCl (Effexor Xr) 75 mg DAILY PO 03/20/21 09:00 03/22/21 17:33 DC 03/22/21 08:34 Albuterol/ Ipratropium (Duoneb) 3 ml RTQID NEB 03/19/21 20:00 03/20/21 07:59 DC Budesonide (Pulmicort) 0.5 mg RTBID NEB 03/19/21 20:00 03/21/21 08:08 DC Albuterol Sulfate (Ventolin) 2.5 mg PRN Q6HRS PRN NEB SHORTNESS OF BREATH 03/19/21 19:30 Cancel Albuterol/ Ipratropium (Combivent Respimat 20-100 Mcg) 1 puff RTQID INH 03/20/21 12:00 Fluticasone Furoate (ARNUITY 100mcg ELLIPTA) 1 puff DAILY INH 03/20/21 09:00 Albuterol Sulfate (Ventolin Hfa Inhaler) 1 puff PRN Q6HRS PRN INH SHORTNESS OF BREATH 03/20/21 09:00 Divalproex Sodium (Depakote Er) 1,000 mg QHS PO 03/21/21 21:00 03/22/21 21:48 DC Olanzapine (ZyPREXA ZYDIS) 2.5 mg PRN Q2HRS PRN PO PSYCHOSIS 03/21/21 16:30 Divalproex Sodium (Depakote Er) 250 mg QHS PO 03/21/21 21:00 03/22/21 21:48 DC Venlafaxine HCl (Effexor) 75 mg DAILY PO 03/23/21 09:00 03/23/21 09:00 Divalproex Sodium (Depakote Sprinkles) 1,250 mg HS PO 03/22/21 22:00 03/23/21 16:47 DC 03/22/21 22:00 Olanzapine (ZyPREXA) 10 mg DAILY PO 03/24/21 09:00 Divalproex Sodium (Depakote Sprinkles) 500 mg DAILY PO 03/24/21 09:00 Divalproex Sodium (Depakote Sprinkles) 750 mg HS PO 03/24/21 21:00 Divalproex Sodium (Depakote Sprinkles) 1,250 mg HS PO 03/23/21 21:00 03/23/21 21:01 DC 03/23/21 20:10 Current Medications Medications (Trade) Dose Ordered Sig/Denise Route PRN Reason Start Time Stop Time Status Last Admin Dose Admin Venlafaxine HCl (Effexor) 75 mg DAILY PO 03/23/21 09:00 03/23/21 09:00 Divalproex Sodium (Depakote Sprinkles) 1,250 mg HS PO 03/22/21 22:00 03/23/21 16:47 DC 03/22/21 22:00 Divalproex Sodium (Depakote Sprinkles) 1,250 mg HS PO 03/23/21 21:00 03/23/21 21:01 DC 03/23/21 20:10 I have reviewed the current psychotropics carefully including drug interactions. Risk benefit ratio favors no change other than as noted in my dictated progress note. Diagnosis: Problems: (1) Bipolar disorder, current episode mixed, severe, with psychotic features (2) Anxiety disorder, unspecified (3) Schizoaffective disorder, bipolar type (4) Impulse disorder, unspecified RHETT MATHEW MD Mar 23, 2021 21:47
--- NOTE | 2021-03-24 00:35 | NUR ---
Pt withdrawn to room when approached. Pt irritable, resistive, paranoid, and suspicious. Pt refused assessment and HS medications. Pt asked for a chocolate Ensure. HS medications crushed and hidden in her Ensure which pt appeared to have consumed when followed up with.
[2021-03-24 06:03] VITALS: BP 145/78
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
[2021-03-24] MEDS: IPRATROPIUM/ALBUTEROL 20/100mcg/INH INHALER. INH SCH ×4 (08:00→20:00)
[2021-03-24] MEDS: DOCUSATE SODIUM 100 MG CAPSULE PO SCH ×2 (09:00→20:09)
[2021-03-24] MEDS: FLUTICASONE FUROATE 100mcg/INH ELLIPTA INHALER. INH SCH (09:00)
[2021-03-24] MEDS: DIVALPROEX 125 MG CAP.SPRINK PO SCH ×2 (10:04→20:10)
[2021-03-24] MEDS: metFORMIN 500 MG TABLET PO SCH (10:05)
[2021-03-24] MEDS: OLANZapine 10 MG TABLET PO SCH ×2 (10:06→20:10)
[2021-03-24] MEDS: risperiDONE 2 MG TABLET. PO SCH (10:06)
[2021-03-24] MEDS: amLODIPine BESYLATE 5 MG TABLET PO SCH (10:06)
[2021-03-24] MEDS: ASPIRIN CHEWABLE 81 MG TABLET. PO SCH (10:06)
[2021-03-24] MEDS: VENLAFAXINE 75 MG TABLET. PO SCH (10:06)
[2021-03-24] MEDS: LISINOPRIL 5 MG TABLET. PO SCH (10:06)
--- NOTE | 2021-03-24 11:50 | NUR ---
Completed [facility] concurrent review and was approved until with review on Wednesday 03/28. Auth number [id number].
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
[2021-03-24 16:12] VITALS: BP 99/62
[2021-03-24] MEDS: MIRTAZAPINE 30 MG TABLET PO SCH (20:10)
[2021-03-24] MEDS: ATORVASTATIN CALCIUM 10 MG TABLET. PO SCH (20:10)
[2021-03-24] MEDS: MELATONIN 3 MG TABLET PO SCH (20:10)
[2021-03-24] MEDS: LATANOPROST 0.005% OPHTH SOLUTION 2.5ML BOTTLE. OU SCH (20:12)
--- NOTE | 2021-03-24 22:20 | PDOC ---
Exam Note: Jose Note: Please also refer to the separate dictated note~for this date of service dictated separately.~Patient seen individually. Discussed the patient with Nursing staff reviewed the chart.~Reviewed interim history and current functioning. Reviewed vital signs,~Labs/ Radiology~and current medications noted below. Continue current treatment with the changes noted in the dictated addendum note Assessment: Vital Signs/I&O: Vital Signs Date Time Temp Pulse Resp B/P (MAP) Pulse Ox O2 Delivery O2 Flow Rate FiO2 03/24/21 16:12 96.9 90 17 99/62 (74) 92 03/24/21 06:03 Nasal Cannula 2.0 I & O 03/23/21 03/23/21 03/24/21 15:00 23:00 07:00 Intake Total 200 ml 360 ml Balance 200 ml 360 ml Labs: Laboratory Tests Test 03/24/21 07:51 Glucose (Fingerstick) 150 mg/dL (70-99) H Current Medications: Meds: Laboratory Tests Test 03/24/21 07:51 Glucose (Fingerstick) 150 mg/dL Current Medications Medications (Trade) Dose Ordered Sig/Denise Route PRN Reason Start Time Stop Time Status Last Admin Dose Admin Acetaminophen (Tylenol) 650 mg PRN Q6HRS PRN PO MILD PAIN / TEMP > 100.3'F 03/19/21 17:00 Multi-Ingredient Ointment (Analgesic [place]) 1 uzair PRN QID PRN TP MUSCLE PAIN 03/19/21 17:00 03/19/21 19:27 DC Al Hydroxide/Mg Hydroxide (Mylanta Plus Xs) 15 ml PRN AFTMEALHC PRN PO DYSPEPSIA 03/19/21 17:00 03/19/21 19:26 DC Magnesium Hydroxide (Milk Of Magnesia) 2,400 mg PRN QHS PRN PO CONSTIPATION 03/19/21 17:00 03/19/21 19:14 DC Acetaminophen (Tylenol) 650 mg PRN Q6HRS PRN PO PAIN/FEVER 03/19/21 18:15 Cancel Amlodipine Besylate (Norvasc) 5 mg DAILY PO 03/20/21 09:00 03/24/21 10:06 Aspirin (Aspirin Chewable) 81 mg DAILY PO 03/20/21 09:00 03/24/21 10:06 Divalproex Sodium (Depakote Sprinkles) 500 mg DAILY PO 03/20/21 09:00 03/21/21 16:33 DC 03/20/21 09:34 Latanoprost (Xalatan) 1 drop QHS OU 03/19/21 21:00 Lisinopril (Prinivil) 10 mg DAILY PO 03/20/21 09:00 03/19/21 19:19 DC Al Hydroxide/Mg Hydroxide (Mylanta Plus Xs) 15 ml PRN AFTMEALHC PRN PO HEARTBURN / GAS 03/19/21 18:15 Melatonin (Melatonin) 3 mg QHS PO 03/19/21 21:00 03/24/21 20:10 Mirtazapine (Remeron) 7.5 mg HS PO 03/19/21 21:00 03/19/21 22:33 DC Mirtazapine (Remeron) 30 mg QHS PO 03/19/21 21:00 03/24/21 20:10 Nicotine (Nicoderm Cq 14mg Patch) 1 patch DAILY TD 03/19/21 18:30 03/22/21 17:55 DC Olanzapine (ZyPREXA) 5 mg DAILY PO 03/20/21 09:00 03/23/21 16:47 DC 03/23/21 09:00 Olanzapine (ZyPREXA) 10 mg QHS PO 03/19/21 21:00 03/24/21 20:10 Risperidone (RisperDAL) 2 mg DAILY PO 03/20/21 09:00 03/24/21 10:06 Trazodone HCl (Desyrel) 50 mg PRN QHS PRN PO INSOMNIA 03/19/21 18:15 03/19/21 22:10 Non-Formulary Medication (Albuterol Sulfate (Proair Respiclick)) 1 puff Q6HRS PRN INH SHORTNESS OF BREATH 03/19/21 18:15 UNV Lisinopril (Prinivil) 5 mg DAILY PO 03/20/21 09:00 03/24/21 10:06 Non-Formulary Medication (Budesonide/ Formoterol Fumarate (Symbicort 160-4.5 Mcg Inhaler)) 2 puff BID IH 03/19/21 21:00 UNV Divalproex Sodium (Depakote Sprinkles) 500 mg HS PO 03/19/21 21:00 7/5/21 16:33 DC 03/20/21 20:49 Docusate Sodium (Colace) 100 mg BID PO 03/19/21 21:00 03/24/21 20:09 Non-Formulary Medication (Latanoprost/Pf (Latanoprost 0.005% Eye Drop)) 1 drop QHS OU 03/19/21 21:00 UNV Magnesium Hydroxide (Milk Of Magnesia) 2,400 mg PRN DAILY PRN PO CONSTIPATION 03/19/21 19:15 Metformin HCl (Glucophage) 1,000 mg DAILYWBKFT PO 03/20/21 08:00 03/24/21 10:05 Multi-Ingredient Ointment (Analgesic [place]) 1 uzair PRN Q6HRS PRN TP MUSCLE PAIN 03/19/21 19:15 Atorvastatin Calcium (Lipitor) 5 mg QHS PO 03/19/21 21:00 03/24/21 20:10 Non-Formulary Medication (Pravastatin Sodium ) 20 mg DAILY PO 03/20/21 09:00 UNV Non-Formulary Medication (Tiotropium [place] (Spiriva)) 1 cap BID IH 03/19/21 21:00 UNV Non-Formulary Medication (Venlafaxine Hcl (Venlafaxine Hcl Er)) 37.5 mg DAILY PO 03/20/21 09:00 03/19/21 19:11 DC Venlafaxine HCl (Effexor Xr) 75 mg DAILY PO 03/20/21 09:00 03/22/21 17:33 DC 03/22/21 08:34 Albuterol/ Ipratropium (Duoneb) 3 ml RTQID NEB 03/19/21 20:00 03/20/21 07:59 DC Budesonide (Pulmicort) 0.5 mg RTBID NEB 03/19/21 20:00 03/21/21 08:08 DC Albuterol Sulfate (Ventolin) 2.5 mg PRN Q6HRS PRN NEB SHORTNESS OF BREATH 03/19/21 19:30 Cancel Albuterol/ Ipratropium (Combivent Respimat 20-100 Mcg) 1 puff RTQID INH 03/20/21 12:00 03/24/21 16:01 Fluticasone Furoate (ARNUITY 100mcg ELLIPTA) 1 puff DAILY INH 03/20/21 09:00 Albuterol Sulfate (Ventolin Hfa Inhaler) 1 puff PRN Q6HRS PRN INH SHORTNESS OF BREATH 03/20/21 09:00 Divalproex Sodium (Depakote Er) 1,000 mg QHS PO 03/21/21 21:00 03/22/21 21:48 DC Olanzapine (ZyPREXA ZYDIS) 2.5 mg PRN Q2HRS PRN PO PSYCHOSIS 03/21/21 16:30 Divalproex Sodium (Depakote Er) 250 mg QHS PO 03/21/21 21:00 03/22/21 21:48 DC Venlafaxine HCl (Effexor) 75 mg DAILY PO 03/23/21 09:00 03/24/21 10:06 Divalproex Sodium (Depakote Sprinkles) 1,250 mg HS PO 03/22/21 22:00 03/23/21 16:47 DC 03/22/21 22:00 Olanzapine (ZyPREXA) 10 mg DAILY PO 03/24/21 09:00 03/24/21 10:06 Divalproex Sodium (Depakote Sprinkles) 500 mg DAILY PO 03/24/21 09:00 03/24/21 10:04 Divalproex Sodium (Depakote Sprinkles) 750 mg HS PO 03/24/21 21:00 03/24/21 20:10 Divalproex Sodium (Depakote Sprinkles) 1,250 mg HS PO 03/23/21 21:00 03/23/21 21:01 DC 03/23/21 20:10 Current Medications Medications (Trade) Dose Ordered Sig/Denise Route PRN Reason Start Time Stop Time Status Last Admin Dose Admin Olanzapine (ZyPREXA) 10 mg DAILY PO 03/24/21 09:00 03/24/21 10:06 Divalproex Sodium (Depakote Sprinkles) 500 mg DAILY PO 03/24/21 09:00 03/24/21 10:04 Divalproex Sodium (Depakote Sprinkles) 750 mg HS PO 03/24/21 21:00 03/24/21 20:10 I have reviewed the current psychotropics carefully including drug interactions. Risk benefit ratio favors no change other than as noted in my dictated progress note. Diagnosis: Problems: (1) Mild cognitive impairment (2) Anxiety disorder, unspecified (3) Bipolar disorder, current episode mixed, severe, with psychotic features (4) Impulse disorder, unspecified (5) Schizoaffective disorder, bipolar type RHETT MATHEW MD Mar 24, 2021 22:19
--- NOTE | 2021-03-24 22:32 | NUR ---
This evening pt was cooperative with staff but has been labile at times. Meds were given crushed in boost.
--- NOTE | 2021-03-25 04:45 | NUR ---
Patient refused to take shower last night before bed and stated she would take one this morning. While patient was getting up to get into the shower this morning she began making rude, racist and sexually inappropriate statements to [employer]'s. While in the shower she proceeded to talk about "washing her vagina", she said she "didn't need to wash it because she hadn't had sex in 8 years". She then said that one of the [employer]'s "had sex with three black men before work". Patient was told that this conversation was not appropriate. Will continue to monitor.
[2021-03-25 06:34] VITALS: BP 120/58
--- NOTE | 2021-03-25 07:07 | PDOC ---
Exam Note: Jose Note: This note is a late entry for 03/24/2021 covers elements not covered in my initial note. Subjective: The patient was seen individually in the evening of 03/24/2021 with Caroline CEBALLOS, discussed and reviewed the chart. The patient slept 6-3/4 hours previous night. She is refusing her medications and inhaler. She remains paranoid, psychotic. As I met with her she stated she would comply with Depakote and Zyprexa at night. Nevertheless she said similar things in the past and recanted on it when the time comes. Review of Systems: Ambulation impaired. No CV, , pulmonary, eye system symptoms on review. Mental Status Exam: The patient is alert, oriented, and cooperative. She is quite hyperverbal, anxious with marked mood lability, irritable. Speech is coherent, rapid. Abstraction fair. Computation impaired. Language function intact. Attention span short. Mood and affect somewhat withdrawn, paranoid. No active suicidal or homicidal ideation. Laboratory Data: Reviewed. Impression: Schizoaffective disorder, bipolar type mixed with psychotic features. Anxiety disorder unspecified. Impulse control disorder unspecified. Plan: Continue current psychotropics. Adjust as clinically indicated. We may consider changing her psychotropics to h.s. dosage as requested. Assessment: Vital Signs/I&O: Vital Signs Date Time Temp Pulse Resp B/P (MAP) Pulse Ox O2 Delivery O2 Flow Rate FiO2 03/25/21 06:34 96.7 22 22 120/58 (78) 94 03/24/21 06:03 Nasal Cannula 2.0 I & O 03/24/21 03/24/21 03/25/21 15:00 23:00 07:00 Intake Total 240 ml 720 ml Balance 240 ml 720 ml Labs: Laboratory Tests Test 03/24/21 07:51 Glucose (Fingerstick) 150 mg/dL (70-99) H Current Medications: Meds: Laboratory Tests Test 03/24/21 07:51 Glucose (Fingerstick) 150 mg/dL Current Medications Medications (Trade) Dose Ordered Sig/Denise Route PRN Reason Start Time Stop Time Status Last Admin Dose Admin Acetaminophen (Tylenol) 650 mg PRN Q6HRS PRN PO MILD PAIN / TEMP > 100.3'F 03/19/21 17:00 Multi-Ingredient Ointment (Analgesic [place]) 1 uzair PRN QID PRN TP MUSCLE PAIN 03/19/21 17:00 03/19/21 19:27 DC Al Hydroxide/Mg Hydroxide (Mylanta Plus Xs) 15 ml PRN AFTMEALHC PRN PO DYSPEPSIA 03/19/21 17:00 03/19/21 19:26 DC Magnesium Hydroxide (Milk Of Magnesia) 2,400 mg PRN QHS PRN PO CONSTIPATION 03/19/21 17:00 03/19/21 19:14 DC Acetaminophen (Tylenol) 650 mg PRN Q6HRS PRN PO PAIN/FEVER 03/19/21 18:15 Cancel Amlodipine Besylate (Norvasc) 5 mg DAILY PO 03/20/21 09:00 03/24/21 10:06 Aspirin (Aspirin Chewable) 81 mg DAILY PO 03/20/21 09:00 03/24/21 10:06 Divalproex Sodium (Depakote Sprinkles) 500 mg DAILY PO 03/20/21 09:00 03/21/21 16:33 DC 03/20/21 09:34 Latanoprost (Xalatan) 1 drop QHS OU 03/19/21 21:00 Lisinopril (Prinivil) 10 mg DAILY PO 03/20/21 09:00 03/19/21 19:19 DC Al Hydroxide/Mg Hydroxide (Mylanta Plus Xs) 15 ml PRN AFTMEALHC PRN PO HEARTBURN / GAS 03/19/21 18:15 Melatonin (Melatonin) 3 mg QHS PO 03/19/21 21:00 03/24/21 20:10 Mirtazapine (Remeron) 7.5 mg HS PO 03/19/21 21:00 03/19/21 22:33 DC Mirtazapine (Remeron) 30 mg QHS PO 03/19/21 21:00 03/24/21 20:10 Nicotine (Nicoderm Cq 14mg Patch) 1 patch DAILY TD 03/19/21 18:30 03/22/21 17:55 DC Olanzapine (ZyPREXA) 5 mg DAILY PO 03/20/21 09:00 03/23/21 16:47 DC 03/23/21 09:00 Olanzapine (ZyPREXA) 10 mg QHS PO 03/19/21 21:00 03/24/21 20:10 Risperidone (RisperDAL) 2 mg DAILY PO 03/20/21 09:00 03/24/21 10:06 Trazodone HCl (Desyrel) 50 mg PRN QHS PRN PO INSOMNIA 03/19/21 18:15 03/19/21 22:10 Non-Formulary Medication (Albuterol Sulfate (Proair Respiclick)) 1 puff Q6HRS PRN INH SHORTNESS OF BREATH 03/19/21 18:15 UNV Lisinopril (Prinivil) 5 mg DAILY PO 03/20/21 09:00 03/24/21 10:06 Non-Formulary Medication (Budesonide/ Formoterol Fumarate (Symbicort 160-4.5 Mcg Inhaler)) 2 puff BID IH 03/19/21 21:00 UNV Divalproex Sodium (Depakote Sprinkles) 500 mg HS PO 03/19/21 21:00 03/21/21 16:33 DC 03/20/21 20:49 Docusate Sodium (Colace) 100 mg BID PO 03/19/21 21:00 03/24/21 20:09 Non-Formulary Medication (Latanoprost/Pf (Latanoprost 0.005% Eye Drop)) 1 drop QHS OU 03/19/21 21:00 UNV Magnesium Hydroxide (Milk Of Magnesia) 2,400 mg PRN DAILY PRN PO CONSTIPATION 03/19/21 19:15 Metformin HCl (Glucophage) 1,000 mg DAILYWBKFT PO 03/20/21 08:00 03/24/21 10:05 Multi-Ingredient Ointment (Analgesic [place]) 1 uzair PRN Q6HRS PRN TP MUSCLE PAIN 03/19/21 19:15 Atorvastatin Calcium (Lipitor) 5 mg QHS PO 03/19/21 21:00 03/24/21 20:10 Non-Formulary Medication (Pravastatin Sodium ) 20 mg DAILY PO 03/20/21 09:00 UNV Non-Formulary Medication (Tiotropium [place] (Spiriva)) 1 cap BID IH 03/19/21 21:00 UNV Non-Formulary Medication (Venlafaxine Hcl (Venlafaxine Hcl Er)) 37.5 mg DAILY PO 03/20/21 09:00 03/19/21 19:11 DC Venlafaxine HCl (Effexor Xr) 75 mg DAILY PO 03/20/21 09:00 03/22/21 17:33 DC 03/22/21 08:34 Albuterol/ Ipratropium (Duoneb) 3 ml RTQID NEB 03/19/21 20:00 03/20/21 07:59 DC Budesonide (Pulmicort) 0.5 mg RTBID NEB 03/19/21 20:00 03/21/21 08:08 DC Albuterol Sulfate (Ventolin) 2.5 mg PRN Q6HRS PRN NEB SHORTNESS OF BREATH 03/19/21 19:30 Cancel Albuterol/ Ipratropium (Combivent Respimat 20-100 Mcg) 1 puff RTQID INH 03/20/21 12:00 03/24/21 16:01 Fluticasone Furoate (ARNUITY 100mcg ELLIPTA) 1 puff DAILY INH 03/20/21 09:00 Albuterol Sulfate (Ventolin Hfa Inhaler) 1 puff PRN Q6HRS PRN INH SHORTNESS OF BREATH 03/20/21 09:00 Divalproex Sodium (Depakote Er) 1,000 mg QHS PO 03/21/21 21:00 03/22/21 21:48 DC Olanzapine (ZyPREXA ZYDIS) 2.5 mg PRN Q2HRS PRN PO PSYCHOSIS 03/21/21 16:30 Divalproex Sodium (Depakote Er) 250 mg QHS PO 03/21/21 21:00 03/22/21 21:48 DC Venlafaxine HCl (Effexor) 75 mg DAILY PO 03/23/21 09:00 03/24/21 10:06 Divalproex Sodium (Depakote Sprinkles) 1,250 mg HS PO 03/22/21 22:00 03/23/21 16:47 DC 03/22/21 22:00 Olanzapine (ZyPREXA) 10 mg DAILY PO 03/24/21 09:00 03/24/21 10:06 Divalproex Sodium (Depakote Sprinkles) 500 mg DAILY PO 03/24/21 09:00 03/24/21 10:04 Divalproex Sodium (Depakote Sprinkles) 750 mg HS PO 03/24/21 21:00 03/24/21 20:10 Divalproex Sodium (Depakote Sprinkles) 1,250 mg HS PO 03/23/21 21:00 03/23/21 21:01 DC 03/23/21 20:10 Current Medications Medications (Trade) Dose Ordered Sig/Denise Route PRN Reason Start Time Stop Time Status Last Admin Dose Admin Olanzapine (ZyPREXA) 10 mg DAILY PO 03/24/21 09:00 03/24/21 10:06 Divalproex Sodium (Depakote Sprinkles) 500 mg DAILY PO 03/24/21 09:00 03/24/21 10:04 Divalproex Sodium (Depakote Sprinkles) 750 mg HS PO 03/24/21 21:00 03/24/21 20:10 I have reviewed the current psychotropics carefully including drug interactions. Risk benefit ratio favors no change other than as noted in my dictated progress note. Diagnosis: Problems: (1) Anxiety disorder, unspecified (2) Bipolar disorder, current episode mixed, severe, with psychotic features (3) Impulse disorder, unspecified (4) Schizoaffective disorder, bipolar type RHETT MATHEW MD Mar 25, 2021 07:07
[2021-03-25] MEDS: IPRATROPIUM/ALBUTEROL 20/100mcg/INH INHALER. INH SCH ×4 (08:00→20:00)
[2021-03-25] MEDS: VENLAFAXINE 75 MG TABLET. PO SCH (08:11)
[2021-03-25] MEDS: DOCUSATE SODIUM 100 MG CAPSULE PO SCH ×2 (08:11→20:12)
[2021-03-25] MEDS: OLANZapine 10 MG TABLET PO SCH ×2 (08:11→20:11)
[2021-03-25] MEDS: risperiDONE 2 MG TABLET. PO SCH (08:11)
[2021-03-25] MEDS: DIVALPROEX 125 MG CAP.SPRINK PO SCH ×2 (08:12→20:12)
[2021-03-25] MEDS: ASPIRIN CHEWABLE 81 MG TABLET. PO SCH (08:12)
[2021-03-25] MEDS: metFORMIN 500 MG TABLET PO SCH (08:12)
[2021-03-25] MEDS: FLUTICASONE FUROATE 100mcg/INH ELLIPTA INHALER. INH SCH (09:00)
[2021-03-25] MEDS: LISINOPRIL 5 MG TABLET. PO SCH (09:35)
[2021-03-25] MEDS: amLODIPine BESYLATE 5 MG TABLET PO SCH (09:36)
--- NOTE | 2021-03-25 14:22 | NUR ---
Nsg Note; Joann is loud and verbally aggressive with other patients, especially at the meal table. she is med compliant and prefers to spend time between meals in her room or in the hallway and not in the dayroom. she states she "doesn't like to hang out with those people".
[2021-03-25 15:57] VITALS: BP 116/75
[2021-03-25] MEDS: MELATONIN 3 MG TABLET PO SCH (20:10)
[2021-03-25] MEDS: MIRTAZAPINE 30 MG TABLET PO SCH (20:11)
[2021-03-25] MEDS: ATORVASTATIN CALCIUM 10 MG TABLET. PO SCH (20:11)
[2021-03-25] MEDS: LATANOPROST 0.005% OPHTH SOLUTION 2.5ML BOTTLE. OU SCH (20:15)
--- NOTE | 2021-03-25 22:06 | PDOC ---
Exam Note: Jose Note: Please also refer to the separate dictated note~for this date of service dictated separately.~Patient seen individually. Discussed the patient with Nursing staff reviewed the chart.~Reviewed interim history and current functioning. Reviewed vital signs,~Labs/ Radiology~and current medications noted below. Continue current treatment with the changes noted in the dictated addendum note Assessment: Vital Signs/I&O: Vital Signs Date Time Temp Pulse Resp B/P (MAP) Pulse Ox O2 Delivery O2 Flow Rate FiO2 03/25/21 15:57 97.2 97 18 116/75 (89) 91 03/24/21 06:03 Nasal Cannula 2.0 I & O 03/24/21 03/24/21 03/25/21 15:00 23:00 07:00 Intake Total 240 ml 720 ml Balance 240 ml 720 ml Labs: Laboratory Tests Test 03/25/21 08:02 Glucose (Fingerstick) 158 mg/dL (70-99) H Current Medications: Meds: Laboratory Tests Test 03/25/21 08:02 Glucose (Fingerstick) 158 mg/dL Current Medications Medications (Trade) Dose Ordered Sig/Denise Route PRN Reason Start Time Stop Time Status Last Admin Dose Admin Acetaminophen (Tylenol) 650 mg PRN Q6HRS PRN PO MILD PAIN / TEMP > 100.3'F 03/19/21 17:00 Multi-Ingredient Ointment (Analgesic [place]) 1 uzair PRN QID PRN TP MUSCLE PAIN 03/19/21 17:00 03/19/21 19:27 DC Al Hydroxide/Mg Hydroxide (Mylanta Plus Xs) 15 ml PRN AFTMEALHC PRN PO DYSPEPSIA 03/19/21 17:00 03/19/21 19:26 DC Magnesium Hydroxide (Milk Of Magnesia) 2,400 mg PRN QHS PRN PO CONSTIPATION 03/19/21 17:00 03/19/21 19:14 DC Acetaminophen (Tylenol) 650 mg PRN Q6HRS PRN PO PAIN/FEVER 03/19/21 18:15 Cancel Amlodipine Besylate (Norvasc) 5 mg DAILY PO 03/20/21 09:00 03/25/21 09:36 Aspirin (Aspirin Chewable) 81 mg DAILY PO 03/20/21 09:00 03/25/21 08:12 Divalproex Sodium (Depakote Sprinkles) 500 mg DAILY PO 03/20/21 09:00 03/21/21 16:33 DC 03/20/21 09:34 Latanoprost (Xalatan) 1 drop QHS OU 03/19/21 21:00 Lisinopril (Prinivil) 10 mg DAILY PO 03/20/21 09:00 03/19/21 19:19 DC Al Hydroxide/Mg Hydroxide (Mylanta Plus Xs) 15 ml PRN AFTMEALHC PRN PO HEARTBURN / GAS 03/19/21 18:15 Melatonin (Melatonin) 3 mg QHS PO 03/19/21 21:00 03/25/21 20:10 Mirtazapine (Remeron) 7.5 mg HS PO 03/19/21 21:00 03/19/21 22:33 DC Mirtazapine (Remeron) 30 mg QHS PO 03/19/21 21:00 03/25/21 20:11 Nicotine (Nicoderm Cq 14mg Patch) 1 patch DAILY TD 03/19/21 18:30 03/22/21 17:55 DC Olanzapine (ZyPREXA) 5 mg DAILY PO 03/20/21 09:00 03/23/21 16:47 DC 03/23/21 09:00 Olanzapine (ZyPREXA) 10 mg QHS PO 03/19/21 21:00 03/25/21 20:11 Risperidone (RisperDAL) 2 mg DAILY PO 03/20/21 09:00 03/25/21 08:11 Trazodone HCl (Desyrel) 50 mg PRN QHS PRN PO INSOMNIA 03/19/21 18:15 03/19/21 22:10 Non-Formulary Medication (Albuterol Sulfate (Proair Respiclick)) 1 puff Q6HRS PRN INH SHORTNESS OF BREATH 03/19/21 18:15 UNV Lisinopril (Prinivil) 5 mg DAILY PO 03/20/21 09:00 03/25/21 09:35 Non-Formulary Medication (Budesonide/ Formoterol Fumarate (Symbicort 160-4.5 Mcg Inhaler)) 2 puff BID IH 03/19/21 21:00 UNV Divalproex Sodium (Depakote Sprinkles) 500 mg HS PO 03/19/21 21:00 7/5/21 16:33 DC 03/20/21 20:49 Docusate Sodium (Colace) 100 mg BID PO 03/19/21 21:00 03/25/21 20:12 Non-Formulary Medication (Latanoprost/Pf (Latanoprost 0.005% Eye Drop)) 1 drop QHS OU 03/19/21 21:00 UNV Magnesium Hydroxide (Milk Of Magnesia) 2,400 mg PRN DAILY PRN PO CONSTIPATION 03/19/21 19:15 Metformin HCl (Glucophage) 1,000 mg DAILYWBKFT PO 03/20/21 08:00 03/25/21 08:12 Multi-Ingredient Ointment (Analgesic [place]) 1 uzair PRN Q6HRS PRN TP MUSCLE PAIN 03/19/21 19:15 Atorvastatin Calcium (Lipitor) 5 mg QHS PO 03/19/21 21:00 03/25/21 20:11 Non-Formulary Medication (Pravastatin Sodium ) 20 mg DAILY PO 03/20/21 09:00 UNV Non-Formulary Medication (Tiotropium [place] (Spiriva)) 1 cap BID IH 03/19/21 21:00 UNV Non-Formulary Medication (Venlafaxine Hcl (Venlafaxine Hcl Er)) 37.5 mg DAILY PO 03/20/21 09:00 03/19/21 19:11 DC Venlafaxine HCl (Effexor Xr) 75 mg DAILY PO 03/20/21 09:00 03/22/21 17:33 DC 03/22/21 08:34 Albuterol/ Ipratropium (Duoneb) 3 ml RTQID NEB 03/19/21 20:00 03/20/21 07:59 DC Budesonide (Pulmicort) 0.5 mg RTBID NEB 03/19/21 20:00 03/21/21 08:08 DC Albuterol Sulfate (Ventolin) 2.5 mg PRN Q6HRS PRN NEB SHORTNESS OF BREATH 03/19/21 19:30 Cancel Albuterol/ Ipratropium (Combivent Respimat 20-100 Mcg) 1 puff RTQID INH 03/20/21 12:00 03/24/21 16:01 Fluticasone Furoate (ARNUITY 100mcg ELLIPTA) 1 puff DAILY INH 03/20/21 09:00 Albuterol Sulfate (Ventolin Hfa Inhaler) 1 puff PRN Q6HRS PRN INH SHORTNESS OF BREATH 03/20/21 09:00 Divalproex Sodium (Depakote Er) 1,000 mg QHS PO 03/21/21 21:00 03/22/21 21:48 DC Olanzapine (ZyPREXA ZYDIS) 2.5 mg PRN Q2HRS PRN PO PSYCHOSIS 03/21/21 16:30 Divalproex Sodium (Depakote Er) 250 mg QHS PO 03/21/21 21:00 03/22/21 21:48 DC Venlafaxine HCl (Effexor) 75 mg DAILY PO 03/23/21 09:00 03/25/21 08:11 Divalproex Sodium (Depakote Sprinkles) 1,250 mg HS PO 03/22/21 22:00 03/23/21 16:47 DC 03/22/21 22:00 Olanzapine (ZyPREXA) 10 mg DAILY PO 03/24/21 09:00 03/25/21 08:11 Divalproex Sodium (Depakote Sprinkles) 500 mg DAILY PO 03/24/21 09:00 03/25/21 08:12 Divalproex Sodium (Depakote Sprinkles) 750 mg HS PO 03/24/21 21:00 03/25/21 20:12 Divalproex Sodium (Depakote Sprinkles) 1,250 mg HS PO 03/23/21 21:00 03/23/21 21:01 DC 03/23/21 20:10 I have reviewed the current psychotropics carefully including drug interactions. Risk benefit ratio favors no change other than as noted in my dictated progress note. Diagnosis: Problems: (1) Schizoaffective disorder, bipolar type (2) Anxiety disorder, unspecified (3) Bipolar disorder, current episode mixed, severe, with psychotic features (4) Impulse disorder, unspecified RHETT MATHEW MD Mar 25, 2021 22:06
--- NOTE | 2021-03-26 02:53 | NUR ---
Samia pt has been in her room and has been fairly cooperative. Most of her meds were given crushed in chocolate Ensure and some were taken whole. She refused her eyedrops and inhaler at saying she did not need them.
--- NOTE | 2021-03-26 05:36 | NUR ---
02 sat this morning in 80's pt refuses to use supplemental oxygen saying she doesn't need it.
[2021-03-26 06:24] VITALS: BP 128/68
[2021-03-26] MEDS: IPRATROPIUM/ALBUTEROL 20/100mcg/INH INHALER. INH SCH ×4 (08:00→20:00)
[2021-03-26] MEDS: metFORMIN 500 MG TABLET PO SCH (08:00)
[2021-03-26] MEDS: ASPIRIN CHEWABLE 81 MG TABLET. PO SCH ×2 (08:07→09:00)
[2021-03-26] MEDS: DIVALPROEX 125 MG CAP.SPRINK PO SCH ×3 (08:07→21:46)
[2021-03-26] MEDS: DOCUSATE SODIUM 100 MG CAPSULE PO SCH (08:07)
[2021-03-26] MEDS: VENLAFAXINE 75 MG TABLET. PO SCH ×2 (08:07→09:00)
[2021-03-26] MEDS: LISINOPRIL 5 MG TABLET. PO SCH ×2 (08:08→09:00)
[2021-03-26] MEDS: amLODIPine BESYLATE 5 MG TABLET PO SCH ×2 (08:08→09:00)
[2021-03-26] MEDS: OLANZapine 10 MG TABLET PO SCH ×2 (08:08→21:00)
[2021-03-26] MEDS: risperiDONE 2 MG TABLET. PO SCH ×2 (08:08→21:46)
[2021-03-26] MEDS: FLUTICASONE FUROATE 100mcg/INH ELLIPTA INHALER. INH SCH (09:00)
--- NOTE | 2021-03-26 09:03 | NUR ---
Pt has been present and visible on the unit. She is very delusional and disorganized. She talks frequently and displays flight of ideas which are not related to each other. At times speech is spontaneous and directed at no one in particular. Pt remembers me from previous shifts requiring SL administration of medications. Pt stated, "I just want to say I'm sorry, [place]. And I want to put this behind us, and I want to go home." Pt has been for the most part appropriate, aside from statements she has made about how she will help black people over white people. Conversation was then changed to the hinduism she goes to, and she spoke fondly of her hinduism community and [employer] [place]. Medications crushed and hidden in grape juice during breakfast, however she requested milk and water as well and consumed those drinks instead of the grape juice. She completed breakfast and walked away without taking a single drink of her grape juice. Instructions given to CNAs that should she request another drink during the day that I am to put medications into it before it's provided to her. Will attempt medication administration again. So far pt has been absent of verbal or physical aggression. Plan of care continues, will pass to next shift.
--- NOTE | 2021-03-26 12:24 | NUR ---
Pt would not come out of her room for lunch and elected to remain sleeping in bed. Morning medications crushed and mixed into a little bit of chocolate milk. Drink provided to pt, who initially agreed to drink the milk. However, after removing the lid from the cup and looking inside she refused to drink the milk. Pt remained adamant about not drinking the chocolate milk despite multiple attempts at encouragement by staff.
--- NOTE | 2021-03-26 15:28 | NUR ---
Nursing staff entered pt's room and this nurse stated that she needed to take morning medications. Pt deliberately ignored this nurse and purposefully turned away and began to brush her hair. This nurse asked if she would like medications in ice cream, chocolate milk etc...pt continued to ignore questions by this nurse with head turned. When the topic of SL administration was brought up pt said "I can take medicine whole, you don't have to do that. You just mess with my head too much." Medications attempted to be administered whole, each medication pt attempted to argue/debate/negotiate administration based off medication name/color/purpose. All morning medication except for Depakote and Risperidone administered. Afterwords when all nursing staff present exited room pt said, "No leave so I don't need to see your ugly faces again."
[2021-03-26 16:04] VITALS: BP 109/69
[2021-03-26] MEDS: MELATONIN 3 MG TABLET PO SCH (21:00)
[2021-03-26] MEDS: ATORVASTATIN CALCIUM 10 MG TABLET. PO SCH (21:00)
[2021-03-26] MEDS: MIRTAZAPINE 30 MG TABLET PO SCH (21:00)
[2021-03-26] MEDS: LATANOPROST 0.005% OPHTH SOLUTION 2.5ML BOTTLE. OU SCH (21:00)
--- NOTE | 2021-03-26 21:32 | NUR ---
Pt has refused to take meds tonight, when they were handed to her she said she would only take 2 pills then threw them all on the floor.
--- NOTE | 2021-03-26 22:19 | PDOC ---
Exam Note: Jose Note: Please also refer to the separate dictated note~for this date of service dictated separately.~Patient seen individually. Discussed the patient with Nursing staff reviewed the chart.~Reviewed interim history and current functioning. Reviewed vital signs,~Labs/ Radiology~and current medications noted below. Continue current treatment with the changes noted in the dictated addendum note Assessment: Vital Signs/I&O: Vital Signs Date Time Temp Pulse Resp B/P (MAP) Pulse Ox O2 Delivery O2 Flow Rate FiO2 03/26/21 16:04 98.0 94 16 109/69 (82) 90 03/24/21 06:03 Nasal Cannula 2.0 I & O 03/25/21 03/25/21 03/26/21 15:00 23:00 07:00 Intake Total 480 ml 480 ml Balance 480 ml 480 ml Labs: Laboratory Tests Test 03/26/21 07:53 Glucose (Fingerstick) 144 mg/dL (70-99) H Current Medications: Meds: Laboratory Tests Test 03/26/21 07:53 Glucose (Fingerstick) 144 mg/dL Current Medications Medications (Trade) Dose Ordered Sig/Denise Route PRN Reason Start Time Stop Time Status Last Admin Dose Admin Acetaminophen (Tylenol) 650 mg PRN Q6HRS PRN PO MILD PAIN / TEMP > 100.3'F 03/19/21 17:00 Multi-Ingredient Ointment (Analgesic [place]) 1 uzair PRN QID PRN TP MUSCLE PAIN 03/19/21 17:00 03/19/21 19:27 DC Al Hydroxide/Mg Hydroxide (Mylanta Plus Xs) 15 ml PRN AFTMEALHC PRN PO DYSPEPSIA 03/19/21 17:00 03/19/21 19:26 DC Magnesium Hydroxide (Milk Of Magnesia) 2,400 mg PRN QHS PRN PO CONSTIPATION 03/19/21 17:00 03/19/21 19:14 DC Acetaminophen (Tylenol) 650 mg PRN Q6HRS PRN PO PAIN/FEVER 03/19/21 18:15 Cancel Amlodipine Besylate (Norvasc) 5 mg DAILY PO 03/20/21 09:00 03/26/21 09:00 Aspirin (Aspirin Chewable) 81 mg DAILY PO 03/20/21 09:00 03/26/21 09:00 Divalproex Sodium (Depakote Sprinkles) 500 mg DAILY PO 03/20/21 09:00 03/21/21 16:33 DC 03/20/21 09:34 Latanoprost (Xalatan) 1 drop QHS OU 03/19/21 21:00 Lisinopril (Prinivil) 10 mg DAILY PO 03/20/21 09:00 03/19/21 19:19 DC Al Hydroxide/Mg Hydroxide (Mylanta Plus Xs) 15 ml PRN AFTMEALHC PRN PO HEARTBURN / GAS 03/19/21 18:15 Melatonin (Melatonin) 3 mg QHS PO 03/19/21 21:00 03/25/21 20:10 Mirtazapine (Remeron) 7.5 mg HS PO 03/19/21 21:00 03/19/21 22:33 DC Mirtazapine (Remeron) 30 mg QHS PO 03/19/21 21:00 03/25/21 20:11 Nicotine (Nicoderm Cq 14mg Patch) 1 patch DAILY TD 03/19/21 18:30 03/22/21 17:55 DC Olanzapine (ZyPREXA) 5 mg DAILY PO 03/20/21 09:00 03/23/21 16:47 DC 03/23/21 09:00 Olanzapine (ZyPREXA) 10 mg QHS PO 03/19/21 21:00 03/26/21 10:19 DC 03/25/21 20:11 Risperidone (RisperDAL) 2 mg DAILY PO 03/20/21 09:00 03/25/21 08:11 Trazodone HCl (Desyrel) 50 mg PRN QHS PRN PO INSOMNIA 03/19/21 18:15 03/19/21 22:10 Non-Formulary Medication (Albuterol Sulfate (Proair Respiclick)) 1 puff Q6HRS PRN INH SHORTNESS OF BREATH 03/19/21 18:15 UNV Lisinopril (Prinivil) 5 mg DAILY PO 03/20/21 09:00 03/26/21 09:00 Non-Formulary Medication (Budesonide/ Formoterol Fumarate (Symbicort 160-4.5 Mcg Inhaler)) 2 puff BID IH 03/19/21 21:00 UNV Divalproex Sodium (Depakote Sprinkles) 500 mg HS PO 03/19/21 21:00 03/21/21 16:33 DC 03/20/21 20:49 Docusate Sodium (Colace) 100 mg BID PO 03/19/21 21:00 03/26/21 10:32 DC 03/25/21 20:12 Non-Formulary Medication (Latanoprost/Pf (Latanoprost 0.005% Eye Drop)) 1 drop QHS OU 03/19/21 21:00 UNV Magnesium Hydroxide (Milk Of Magnesia) 2,400 mg PRN DAILY PRN PO CONSTIPATION 03/19/21 19:15 Metformin HCl (Glucophage) 1,000 mg DAILYWBKFT PO 03/20/21 08:00 03/25/21 08:12 Multi-Ingredient Ointment (Analgesic [place]) 1 uzair PRN Q6HRS PRN TP MUSCLE PAIN 03/19/21 19:15 Atorvastatin Calcium (Lipitor) 5 mg QHS PO 03/19/21 21:00 03/25/21 20:11 Non-Formulary Medication (Pravastatin Sodium ) 20 mg DAILY PO 03/20/21 09:00 UNV Non-Formulary Medication (Tiotropium [place] (Spiriva)) 1 cap BID IH 03/19/21 21:00 UNV Non-Formulary Medication (Venlafaxine Hcl (Venlafaxine Hcl Er)) 37.5 mg DAILY PO 03/20/21 09:00 03/19/21 19:11 DC Venlafaxine HCl (Effexor Xr) 75 mg DAILY PO 03/20/21 09:00 03/22/21 17:33 DC 03/22/21 08:34 Albuterol/ Ipratropium (Duoneb) 3 ml RTQID NEB 03/19/21 20:00 03/20/21 07:59 DC Budesonide (Pulmicort) 0.5 mg RTBID NEB 03/19/21 20:00 03/21/21 08:08 DC Albuterol Sulfate (Ventolin) 2.5 mg PRN Q6HRS PRN NEB SHORTNESS OF BREATH 03/19/21 19:30 Cancel Albuterol/ Ipratropium (Combivent Respimat 20-100 Mcg) 1 puff RTQID INH 03/20/21 12:00 03/24/21 16:01 Fluticasone Furoate (ARNUITY 100mcg ELLIPTA) 1 puff DAILY INH 03/20/21 09:00 Albuterol Sulfate (Ventolin Hfa Inhaler) 1 puff PRN Q6HRS PRN INH SHORTNESS OF BREATH 03/20/21 09:00 Divalproex Sodium (Depakote Er) 1,000 mg QHS PO 03/21/21 21:00 03/22/21 21:48 DC Olanzapine (ZyPREXA ZYDIS) 2.5 mg PRN Q2HRS PRN PO PSYCHOSIS 03/21/21 16:30 Divalproex Sodium (Depakote Er) 250 mg QHS PO 03/21/21 21:00 03/22/21 21:48 DC Venlafaxine HCl (Effexor) 75 mg DAILY PO 03/23/21 09:00 03/26/21 09:00 Divalproex Sodium (Depakote Sprinkles) 1,250 mg HS PO 03/22/21 22:00 03/23/21 16:47 DC 03/22/21 22:00 Olanzapine (ZyPREXA) 10 mg DAILY PO 03/24/21 09:00 03/26/21 10:18 DC 03/25/21 08:11 Divalproex Sodium (Depakote Sprinkles) 500 mg DAILY PO 03/24/21 09:00 03/25/21 08:12 Divalproex Sodium (Depakote Sprinkles) 750 mg HS PO 03/24/21 21:00 03/25/21 20:12 Divalproex Sodium (Depakote Sprinkles) 1,250 mg HS PO 03/23/21 21:00 03/23/21 21:01 DC 03/23/21 20:10 Olanzapine (ZyPREXA) 10 mg BID PO 03/26/21 21:00 I have reviewed the current psychotropics carefully including drug interactions. Risk benefit ratio favors no change other than as noted in my dictated progress note. Diagnosis: Problems: (1) Schizoaffective disorder, bipolar type (2) Anxiety disorder, unspecified (3) Bipolar disorder, current episode mixed, severe, with psychotic features (4) Impulse disorder, unspecified RHETT MATHEW MD Mar 26, 2021 22:19
[2021-03-27 05:52] VITALS: BP 143/74
[2021-03-27] MEDS: IPRATROPIUM/ALBUTEROL 20/100mcg/INH INHALER. INH SCH ×4 (08:00→20:36)
[2021-03-27] MEDS: metFORMIN 500 MG TABLET PO SCH (08:05)
[2021-03-27] MEDS: OLANZapine 10 MG TABLET PO SCH ×2 (08:05→20:39)
[2021-03-27] MEDS: risperiDONE 2 MG TABLET. PO SCH (08:05)
[2021-03-27] MEDS: DIVALPROEX 125 MG CAP.SPRINK PO SCH ×2 (08:05→20:38)
[2021-03-27] MEDS: ASPIRIN CHEWABLE 81 MG TABLET. PO SCH (08:05)
[2021-03-27] MEDS: VENLAFAXINE 75 MG TABLET. PO SCH (08:06)
[2021-03-27] MEDS: FLUTICASONE FUROATE 100mcg/INH ELLIPTA INHALER. INH SCH (08:06)
[2021-03-27] MEDS: LISINOPRIL 5 MG TABLET. PO SCH (08:06)
[2021-03-27] MEDS: amLODIPine BESYLATE 5 MG TABLET PO SCH (08:06)
--- NOTE | 2021-03-27 08:17 | PDOC ---
Exam Note: Jose Note: This note is a late entry for 03/25/2021 covers elements not covered in my initial note. Subjective: The patient was seen individually in the evening of 03/25/2021 with Rdaha CEBALLOS, discussed and reviewed the chart. The patient slept 7-1/4 hours previous night. Appetite 50%. She has been withdrawn, verbally aggressive, loud especially during h.s. showers, making derogatory racial comments to white female nursing staff, some of these are rather lewd comments. She remains paranoid, suspicious, feels she can be living back at home by herself. Review of Systems: Ambulation impaired. No CV, , pulmonary, eye system symptoms on review. Mental Status Exam: The patient is alert, oriented, and cooperative. I met with the patient at length in her room. She was very verbal about wanting to be discharged and taking care of herself at home. I addressed this with her at length but this limited insight from her side about this. Speech is coherent, rapid. Abstraction fair. Computation impaired. Language function intact. Attention span short. Mood and affect somewhat withdrawn, paranoid. No active suicidal or homicidal ideation. Laboratory Data: Reviewed. Impression: Schizoaffective disorder, bipolar type mixed with psychotic features. Anxiety disorder unspecified. Impulse control disorder unspecified. Plan: Continue current psychotropics. Adjust as clinically indicated. Assessment: Vital Signs/I&O: Vital Signs Date Time Temp Pulse Resp B/P (MAP) Pulse Ox O2 Delivery O2 Flow Rate FiO2 03/27/21 08:06 93 143/74 03/27/21 05:52 97.2 16 85 03/24/21 06:03 Nasal Cannula 2.0 I & O 03/26/21 03/26/21 03/27/21 15:00 23:00 07:00 Intake Total 210 ml 480 ml Balance 210 ml 480 ml Labs: Laboratory Tests Test 03/26/21 15:15 03/27/21 07:26 SARS-CoV-2 (PCR) Negative (NEGATIVE) Glucose (Fingerstick) 121 mg/dL (70-99) H Current Medications: Meds: Laboratory Tests Test 03/26/21 15:15 03/27/21 07:26 Coronavirus (COVID-19)(PCR) Negative Glucose (Fingerstick) 121 mg/dL Current Medications Medications (Trade) Dose Ordered Sig/Denise Route PRN Reason Start Time Stop Time Status Last Admin Dose Admin Acetaminophen (Tylenol) 650 mg PRN Q6HRS PRN PO MILD PAIN / TEMP > 100.3'F 03/19/21 17:00 Multi-Ingredient Ointment (Analgesic [place]) 1 uzair PRN QID PRN TP MUSCLE PAIN 03/19/21 17:00 03/19/21 19:27 DC Al Hydroxide/Mg Hydroxide (Mylanta Plus Xs) 15 ml PRN AFTMEALHC PRN PO DYSPEPSIA 03/19/21 17:00 03/19/21 19:26 DC Magnesium Hydroxide (Milk Of Magnesia) 2,400 mg PRN QHS PRN PO CONSTIPATION 03/19/21 17:00 03/19/21 19:14 DC Acetaminophen (Tylenol) 650 mg PRN Q6HRS PRN PO PAIN/FEVER 03/19/21 18:15 Cancel Amlodipine Besylate (Norvasc) 5 mg DAILY PO 03/20/21 09:00 03/27/21 08:06 Aspirin (Aspirin Chewable) 81 mg DAILY PO 03/20/21 09:00 03/27/21 08:05 Divalproex Sodium (Depakote Sprinkles) 500 mg DAILY PO 03/20/21 09:00 03/21/21 16:33 DC 03/20/21 09:34 Latanoprost (Xalatan) 1 drop QHS OU 03/19/21 21:00 Lisinopril (Prinivil) 10 mg DAILY PO 03/20/21 09:00 03/19/21 19:19 DC Al Hydroxide/Mg Hydroxide (Mylanta Plus Xs) 15 ml PRN AFTMEALHC PRN PO HEARTBURN / GAS 03/19/21 18:15 Melatonin (Melatonin) 3 mg QHS PO 03/19/21 21:00 03/25/21 20:10 Mirtazapine (Remeron) 7.5 mg HS PO 03/19/21 21:00 03/19/21 22:33 DC Mirtazapine (Remeron) 30 mg QHS PO 03/19/21 21:00 03/25/21 20:11 Nicotine (Nicoderm Cq 14mg Patch) 1 patch DAILY TD 03/19/21 18:30 03/22/21 17:55 DC Olanzapine (ZyPREXA) 5 mg DAILY PO 03/20/21 09:00 03/23/21 16:47 DC 03/23/21 09:00 Olanzapine (ZyPREXA) 10 mg QHS PO 03/19/21 21:00 03/26/21 10:19 DC 03/25/21 20:11 Risperidone (RisperDAL) 2 mg DAILY PO 03/20/21 09:00 03/27/21 08:05 Trazodone HCl (Desyrel) 50 mg PRN QHS PRN PO INSOMNIA 03/19/21 18:15 03/19/21 22:10 Non-Formulary Medication (Albuterol Sulfate (Proair Respiclick)) 1 puff Q6HRS PRN INH SHORTNESS OF BREATH 03/19/21 18:15 UNV Lisinopril (Prinivil) 5 mg DAILY PO 03/20/21 09:00 03/27/21 08:06 Non-Formulary Medication (Budesonide/ Formoterol Fumarate (Symbicort 160-4.5 Mcg Inhaler)) 2 puff BID IH 03/19/21 21:00 UNV Divalproex Sodium (Depakote Sprinkles) 500 mg HS PO 03/19/21 21:00 03/21/21 16:33 DC 03/20/21 20:49 Docusate Sodium (Colace) 100 mg BID PO 03/19/21 21:00 03/26/21 10:32 DC 03/25/21 20:12 Non-Formulary Medication (Latanoprost/Pf (Latanoprost 0.005% Eye Drop)) 1 drop QHS OU 03/19/21 21:00 UNV Magnesium Hydroxide (Milk Of Magnesia) 2,400 mg PRN DAILY PRN PO CONSTIPATION 03/19/21 19:15 Metformin HCl (Glucophage) 1,000 mg DAILYWBKFT PO 03/20/21 08:00 03/27/21 08:05 Multi-Ingredient Ointment (Analgesic [place]) 1 uzair PRN Q6HRS PRN TP MUSCLE PAIN 03/19/21 19:15 Atorvastatin Calcium (Lipitor) 5 mg QHS PO 03/19/21 21:00 03/25/21 20:11 Non-Formulary Medication (Pravastatin Sodium ) 20 mg DAILY PO 03/20/21 09:00 UNV Non-Formulary Medication (Tiotropium [place] (Spiriva)) 1 cap BID IH 03/19/21 21:00 UNV Non-Formulary Medication (Venlafaxine Hcl (Venlafaxine Hcl Er)) 37.5 mg DAILY PO 03/20/21 09:00 03/19/21 19:11 DC Venlafaxine HCl (Effexor Xr) 75 mg DAILY PO 03/20/21 09:00 03/22/21 17:33 DC 03/22/21 08:34 Albuterol/ Ipratropium (Duoneb) 3 ml RTQID NEB 03/19/21 20:00 03/20/21 07:59 DC Budesonide (Pulmicort) 0.5 mg RTBID NEB 03/19/21 20:00 03/21/21 08:08 DC Albuterol Sulfate (Ventolin) 2.5 mg PRN Q6HRS PRN NEB SHORTNESS OF BREATH 03/19/21 19:30 Cancel Albuterol/ Ipratropium (Combivent Respimat 20-100 Mcg) 1 puff RTQID INH 03/20/21 12:00 03/24/21 16:01 Fluticasone Furoate (ARNUITY 100mcg ELLIPTA) 1 puff DAILY INH 03/20/21 09:00 Albuterol Sulfate (Ventolin Hfa Inhaler) 1 puff PRN Q6HRS PRN INH SHORTNESS OF BREATH 03/20/21 09:00 Divalproex Sodium (Depakote Er) 1,000 mg QHS PO 03/21/21 21:00 03/22/21 21:48 DC Olanzapine (ZyPREXA ZYDIS) 2.5 mg PRN Q2HRS PRN PO PSYCHOSIS 03/21/21 16:30 Divalproex Sodium (Depakote Er) 250 mg QHS PO 03/21/21 21:00 03/22/21 21:48 DC Venlafaxine HCl (Effexor) 75 mg DAILY PO 03/23/21 09:00 03/27/21 08:06 Divalproex Sodium (Depakote Sprinkles) 1,250 mg HS PO 03/22/21 22:00 03/23/21 16:47 DC 03/22/21 22:00 Olanzapine (ZyPREXA) 10 mg DAILY PO 03/24/21 09:00 03/26/21 10:18 DC 03/25/21 08:11 Divalproex Sodium (Depakote Sprinkles) 500 mg DAILY PO 03/24/21 09:00 03/27/21 08:05 Divalproex Sodium (Depakote Sprinkles) 750 mg HS PO 03/24/21 21:00 03/25/21 20:12 Divalproex Sodium (Depakote Sprinkles) 1,250 mg HS PO 03/23/21 21:00 03/23/21 21:01 DC 03/23/21 20:10 Olanzapine (ZyPREXA) 10 mg BID PO 03/26/21 21:00 03/27/21 08:05 Current Medications Medications (Trade) Dose Ordered Sig/Denise Route PRN Reason Start Time Stop Time Status Last Admin Dose Admin Olanzapine (ZyPREXA) 10 mg BID PO 03/26/21 21:00 03/27/21 08:05 I have reviewed the current psychotropics carefully including drug interactions. Risk benefit ratio favors no change other than as noted in my dictated progress note. Diagnosis: Problems: (1) Bipolar disorder, current episode mixed, severe, with psychotic features (2) Schizoaffective disorder, bipolar type (3) Impulse disorder, unspecified (4) Anxiety disorder, unspecified RHETT MATHEW MD Mar 27, 2021 08:17
--- NOTE | 2021-03-27 08:39 | PDOC ---
Exam Note: Jose Note: This note is a late entry for 03/26/2021 covers elements not covered in my initial note. Subjective: The patient was seen individually in the evening of 03/26/2021 with Socorro CEBALLOS, discussed and reviewed the chart. The patient slept 5 hours previous night. She has been withdrawn, spends much time in her room. She takes meds in liquid in the morning, refused a.m. Depakote and refused meds and had in chocolate milk later at lunch took rest of the meds other than Depakote and Risperdal. I addressed with her individually in her room in the evening. She is still resistive. Review of Systems: Ambulation impaired. No CV, , pulmonary, eye system symptoms on review. Mental Status Exam: The patient is awake, alert, oriented. Speech is coherent, rapid at times, somewhat obsessive about why she was brought here, there is no reason to it. Abstraction fair. Computation impaired. Language function intact. Attention span short. Mood and affect withdrawn, paranoid. Laboratory Data: Reviewed. Impression: Schizoaffective disorder, bipolar type mixed with psychotic features. Anxiety disorder unspecified. Impulse control disorder unspecified. Plan: Continue current psychotropics. Adjust psychotropics as clinically indicated. If she refused Risperdal we may stop it since she is agreeable to taking Zyprexa we may change 10 mg b.i.d. to 20 mg h.s. Depakote may be given altogether at night but we tried this in the past and then she refused it at night even though previously she said that is the only way she will take it. We will continue to address this with the patient. Assessment: Vital Signs/I&O: Vital Signs Date Time Temp Pulse Resp B/P (MAP) Pulse Ox O2 Delivery O2 Flow Rate FiO2 03/27/21 08:06 93 143/74 03/27/21 05:52 97.2 16 85 03/24/21 06:03 Nasal Cannula 2.0 I & O 03/26/21 03/26/21 03/27/21 15:00 23:00 07:00 Intake Total 210 ml 480 ml Balance 210 ml 480 ml Labs: Laboratory Tests Test 03/26/21 15:15 03/27/21 07:26 SARS-CoV-2 (PCR) Negative (NEGATIVE) Glucose (Fingerstick) 121 mg/dL (70-99) H Current Medications: Meds: Laboratory Tests Test 03/26/21 15:15 03/27/21 07:26 Coronavirus (COVID-19)(PCR) Negative Glucose (Fingerstick) 121 mg/dL Current Medications Medications (Trade) Dose Ordered Sig/Denise Route PRN Reason Start Time Stop Time Status Last Admin Dose Admin Acetaminophen (Tylenol) 650 mg PRN Q6HRS PRN PO MILD PAIN / TEMP > 100.3'F 03/19/21 17:00 Multi-Ingredient Ointment (Analgesic [place]) 1 uzair PRN QID PRN TP MUSCLE PAIN 03/19/21 17:00 03/19/21 19:27 DC Al Hydroxide/Mg Hydroxide (Mylanta Plus Xs) 15 ml PRN AFTMEALHC PRN PO DYSPEPSIA 03/19/21 17:00 03/19/21 19:26 DC Magnesium Hydroxide (Milk Of Magnesia) 2,400 mg PRN QHS PRN PO CONSTIPATION 03/19/21 17:00 03/19/21 19:14 DC Acetaminophen (Tylenol) 650 mg PRN Q6HRS PRN PO PAIN/FEVER 03/19/21 18:15 Cancel Amlodipine Besylate (Norvasc) 5 mg DAILY PO 03/20/21 09:00 03/27/21 08:06 Aspirin (Aspirin Chewable) 81 mg DAILY PO 03/20/21 09:00 03/27/21 08:05 Divalproex Sodium (Depakote Sprinkles) 500 mg DAILY PO 03/20/21 09:00 03/21/21 16:33 DC 03/20/21 09:34 Latanoprost (Xalatan) 1 drop QHS OU 03/19/21 21:00 Lisinopril (Prinivil) 10 mg DAILY PO 03/20/21 09:00 03/19/21 19:19 DC Al Hydroxide/Mg Hydroxide (Mylanta Plus Xs) 15 ml PRN AFTMEALHC PRN PO HEARTBURN / GAS 03/19/21 18:15 Melatonin (Melatonin) 3 mg QHS PO 03/19/21 21:00 03/25/21 20:10 Mirtazapine (Remeron) 7.5 mg HS PO 03/19/21 21:00 03/19/21 22:33 DC Mirtazapine (Remeron) 30 mg QHS PO 03/19/21 21:00 03/25/21 20:11 Nicotine (Nicoderm Cq 14mg Patch) 1 patch DAILY TD 03/19/21 18:30 03/22/21 17:55 DC Olanzapine (ZyPREXA) 5 mg DAILY PO 03/20/21 09:00 03/23/21 16:47 DC 03/23/21 09:00 Olanzapine (ZyPREXA) 10 mg QHS PO 03/19/21 21:00 03/26/21 10:19 DC 03/25/21 20:11 Risperidone (RisperDAL) 2 mg DAILY PO 03/20/21 09:00 03/27/21 08:05 Trazodone HCl (Desyrel) 50 mg PRN QHS PRN PO INSOMNIA 03/19/21 18:15 03/19/21 22:10 Non-Formulary Medication (Albuterol Sulfate (Proair Respiclick)) 1 puff Q6HRS PRN INH SHORTNESS OF BREATH 03/19/21 18:15 UNV Lisinopril (Prinivil) 5 mg DAILY PO 03/20/21 09:00 03/27/21 08:06 Non-Formulary Medication (Budesonide/ Formoterol Fumarate (Symbicort 160-4.5 Mcg Inhaler)) 2 puff BID IH 03/19/21 21:00 UNV Divalproex Sodium (Depakote Sprinkles) 500 mg HS PO 03/19/21 21:00 03/21/21 16:33 DC 03/20/21 20:49 Docusate Sodium (Colace) 100 mg BID PO 03/19/21 21:00 03/26/21 10:32 DC 03/25/21 20:12 Non-Formulary Medication (Latanoprost/Pf (Latanoprost 0.005% Eye Drop)) 1 drop QHS OU 03/19/21 21:00 UNV Magnesium Hydroxide (Milk Of Magnesia) 2,400 mg PRN DAILY PRN PO CONSTIPATION 03/19/21 19:15 Metformin HCl (Glucophage) 1,000 mg DAILYWBKFT PO 03/20/21 08:00 03/27/21 08:05 Multi-Ingredient Ointment (Analgesic [place]) 1 uzair PRN Q6HRS PRN TP MUSCLE PAIN 03/19/21 19:15 Atorvastatin Calcium (Lipitor) 5 mg QHS PO 03/19/21 21:00 03/25/21 20:11 Non-Formulary Medication (Pravastatin Sodium ) 20 mg DAILY PO 03/20/21 09:00 UNV Non-Formulary Medication (Tiotropium [place] (Spiriva)) 1 cap BID IH 03/19/21 21:00 UNV Non-Formulary Medication (Venlafaxine Hcl (Venlafaxine Hcl Er)) 37.5 mg DAILY PO 03/20/21 09:00 03/19/21 19:11 DC Venlafaxine HCl (Effexor Xr) 75 mg DAILY PO 03/20/21 09:00 03/22/21 17:33 DC 03/22/21 08:34 Albuterol/ Ipratropium (Duoneb) 3 ml RTQID NEB 03/19/21 20:00 03/20/21 07:59 DC Budesonide (Pulmicort) 0.5 mg RTBID NEB 03/19/21 20:00 03/21/21 08:08 DC Albuterol Sulfate (Ventolin) 2.5 mg PRN Q6HRS PRN NEB SHORTNESS OF BREATH 03/19/21 19:30 Cancel Albuterol/ Ipratropium (Combivent Respimat 20-100 Mcg) 1 puff RTQID INH 03/20/21 12:00 03/24/21 16:01 Fluticasone Furoate (ARNUITY 100mcg ELLIPTA) 1 puff DAILY INH 03/20/21 09:00 Albuterol Sulfate (Ventolin Hfa Inhaler) 1 puff PRN Q6HRS PRN INH SHORTNESS OF BREATH 03/20/21 09:00 Divalproex Sodium (Depakote Er) 1,000 mg QHS PO 03/21/21 21:00 03/22/21 21:48 DC Olanzapine (ZyPREXA ZYDIS) 2.5 mg PRN Q2HRS PRN PO PSYCHOSIS 03/21/21 16:30 Divalproex Sodium (Depakote Er) 250 mg QHS PO 03/21/21 21:00 03/22/21 21:48 DC Venlafaxine HCl (Effexor) 75 mg DAILY PO 03/23/21 09:00 03/27/21 08:06 Divalproex Sodium (Depakote Sprinkles) 1,250 mg HS PO 03/22/21 22:00 03/23/21 16:47 DC 03/22/21 22:00 Olanzapine (ZyPREXA) 10 mg DAILY PO 03/24/21 09:00 03/26/21 10:18 DC 03/25/21 08:11 Divalproex Sodium (Depakote Sprinkles) 500 mg DAILY PO 03/24/21 09:00 03/27/21 08:05 Divalproex Sodium (Depakote Sprinkles) 750 mg HS PO 03/24/21 21:00 03/25/21 20:12 Divalproex Sodium (Depakote Sprinkles) 1,250 mg HS PO 03/23/21 21:00 03/23/21 21:01 DC 03/23/21 20:10 Olanzapine (ZyPREXA) 10 mg BID PO 03/26/21 21:00 03/27/21 08:05 Current Medications Medications (Trade) Dose Ordered Sig/Denise Route PRN Reason Start Time Stop Time Status Last Admin Dose Admin Olanzapine (ZyPREXA) 10 mg BID PO 03/26/21 21:00 03/27/21 08:05 I have reviewed the current psychotropics carefully including drug interactions. Risk benefit ratio favors no change other than as noted in my dictated progress note. Diagnosis: Problems: (1) Schizoaffective disorder, bipolar type (2) Bipolar disorder, current episode mixed, severe, with psychotic features (3) Anxiety disorder, unspecified (4) Impulse disorder, unspecified RHETT MATHEW MD Mar 27, 2021 08:39
--- NOTE | 2021-03-27 10:44 | NUR ---
Nursing note: Pt in dining room at time of AM med pass and assessment. She was initially agreeable to take her meds whole, when given the cup with all her AM meds, she said "That's too many. I only take metformin, effexor, and lisinopril. Just 3 pills." These meds were picked out of the cup and attempted to be administered. Pt was under the impression that she only receives metformin 500mg instead of the scheduled 1000mg. When she counted 4 pills in the cup, pt stated "Come on Nory, you know how to count better than that." She then took out one of her metformin pills and took the other 3 whole. The rest of her AM meds will be crushed and attempted to be given in a drink with her lunch. Pt refused both of her inhalers. She is currently in her room talking to herself. Will continue to monitor.
[2021-03-27 16:07] VITALS: BP 152/73
[2021-03-27] MEDS: LATANOPROST 0.005% OPHTH SOLUTION 2.5ML BOTTLE. OU SCH (20:36)
[2021-03-27] MEDS: MIRTAZAPINE 30 MG TABLET PO SCH (20:39)
[2021-03-27] MEDS: MELATONIN 3 MG TABLET PO SCH (20:39)
[2021-03-27] MEDS: ATORVASTATIN CALCIUM 10 MG TABLET. PO SCH (20:39)
--- NOTE | 2021-03-27 22:13 | PDOC ---
Exam Note: Jose Note: Please also refer to the separate dictated note~for this date of service dictated separately.~Patient seen individually. Discussed the patient with Nursing staff reviewed the chart.~Reviewed interim history and current functioning. Reviewed vital signs,~Labs/ Radiology~and current medications noted below. Continue current treatment with the changes noted in the dictated addendum note Assessment: Vital Signs/I&O: Vital Signs Date Time Temp Pulse Resp B/P (MAP) Pulse Ox O2 Delivery O2 Flow Rate FiO2 03/27/21 16:07 97.8 105 20 152/73 (99) 94 03/24/21 06:03 Nasal Cannula 2.0 I & O 03/26/21 03/26/21 03/27/21 15:00 23:00 07:00 Intake Total 210 ml 480 ml Balance 210 ml 480 ml Labs: Laboratory Tests Test 03/27/21 07:26 Glucose (Fingerstick) 121 mg/dL (70-99) H Current Medications: Meds: Laboratory Tests Test 03/27/21 07:26 Glucose (Fingerstick) 121 mg/dL Current Medications Medications (Trade) Dose Ordered Sig/Denise Route PRN Reason Start Time Stop Time Status Last Admin Dose Admin Acetaminophen (Tylenol) 650 mg PRN Q6HRS PRN PO MILD PAIN / TEMP > 100.3'F 03/19/21 17:00 Multi-Ingredient Ointment (Analgesic [place]) 1 uzair PRN QID PRN TP MUSCLE PAIN 03/19/21 17:00 03/19/21 19:27 DC Al Hydroxide/Mg Hydroxide (Mylanta Plus Xs) 15 ml PRN AFTMEALHC PRN PO DYSPEPSIA 03/19/21 17:00 03/19/21 19:26 DC Magnesium Hydroxide (Milk Of Magnesia) 2,400 mg PRN QHS PRN PO CONSTIPATION 03/19/21 17:00 03/19/21 19:14 DC Acetaminophen (Tylenol) 650 mg PRN Q6HRS PRN PO PAIN/FEVER 03/19/21 18:15 Cancel Amlodipine Besylate (Norvasc) 5 mg DAILY PO 03/20/21 09:00 03/27/21 08:06 Aspirin (Aspirin Chewable) 81 mg DAILY PO 03/20/21 09:00 03/27/21 08:05 Divalproex Sodium (Depakote Sprinkles) 500 mg DAILY PO 03/20/21 09:00 03/21/21 16:33 DC 03/20/21 09:34 Latanoprost (Xalatan) 1 drop QHS OU 03/19/21 21:00 Lisinopril (Prinivil) 10 mg DAILY PO 03/20/21 09:00 03/19/21 19:19 DC Al Hydroxide/Mg Hydroxide (Mylanta Plus Xs) 15 ml PRN AFTMEALHC PRN PO HEARTBURN / GAS 03/19/21 18:15 Melatonin (Melatonin) 3 mg QHS PO 03/19/21 21:00 03/27/21 20:39 Mirtazapine (Remeron) 7.5 mg HS PO 03/19/21 21:00 03/19/21 22:33 DC Mirtazapine (Remeron) 30 mg QHS PO 03/19/21 21:00 03/27/21 20:39 Nicotine (Nicoderm Cq 14mg Patch) 1 patch DAILY TD 03/19/21 18:30 03/22/21 17:55 DC Olanzapine (ZyPREXA) 5 mg DAILY PO 03/20/21 09:00 03/23/21 16:47 DC 03/23/21 09:00 Olanzapine (ZyPREXA) 10 mg QHS PO 03/19/21 21:00 03/26/21 10:19 DC 03/25/21 20:11 Risperidone (RisperDAL) 2 mg DAILY PO 03/20/21 09:00 03/27/21 08:05 Trazodone HCl (Desyrel) 50 mg PRN QHS PRN PO INSOMNIA 03/19/21 18:15 03/19/21 22:10 Non-Formulary Medication (Albuterol Sulfate (Proair Respiclick)) 1 puff Q6HRS PRN INH SHORTNESS OF BREATH 03/19/21 18:15 UNV Lisinopril (Prinivil) 5 mg DAILY PO 03/20/21 09:00 03/27/21 08:06 Non-Formulary Medication (Budesonide/ Formoterol Fumarate (Symbicort 160-4.5 Mcg Inhaler)) 2 puff BID IH 03/19/21 21:00 UNV Divalproex Sodium (Depakote Sprinkles) 500 mg HS PO 03/19/21 21:00 03/21/21 16:33 DC 03/20/21 20:49 Docusate Sodium (Colace) 100 mg BID PO 03/19/21 21:00 03/26/21 10:32 DC 03/25/21 20:12 Non-Formulary Medication (Latanoprost/Pf (Latanoprost 0.005% Eye Drop)) 1 drop QHS OU 03/19/21 21:00 UNV Magnesium Hydroxide (Milk Of Magnesia) 2,400 mg PRN DAILY PRN PO CONSTIPATION 03/19/21 19:15 Metformin HCl (Glucophage) 1,000 mg DAILYWBKFT PO 03/20/21 08:00 03/27/21 08:05 Multi-Ingredient Ointment (Analgesic [place]) 1 uzair PRN Q6HRS PRN TP MUSCLE PAIN 03/19/21 19:15 Atorvastatin Calcium (Lipitor) 5 mg QHS PO 03/19/21 21:00 03/27/21 20:39 Non-Formulary Medication (Pravastatin Sodium ) 20 mg DAILY PO 03/20/21 09:00 UNV Non-Formulary Medication (Tiotropium [place] (Spiriva)) 1 cap BID IH 03/19/21 21:00 UNV Non-Formulary Medication (Venlafaxine Hcl (Venlafaxine Hcl Er)) 37.5 mg DAILY PO 03/20/21 09:00 03/19/21 19:11 DC Venlafaxine HCl (Effexor Xr) 75 mg DAILY PO 03/20/21 09:00 03/22/21 17:33 DC 03/22/21 08:34 Albuterol/ Ipratropium (Duoneb) 3 ml RTQID NEB 03/19/21 20:00 03/20/21 07:59 DC Budesonide (Pulmicort) 0.5 mg RTBID NEB 03/19/21 20:00 03/21/21 08:08 DC Albuterol Sulfate (Ventolin) 2.5 mg PRN Q6HRS PRN NEB SHORTNESS OF BREATH 03/19/21 19:30 Cancel Albuterol/ Ipratropium (Combivent Respimat 20-100 Mcg) 1 puff RTQID INH 03/20/21 12:00 03/24/21 16:01 Fluticasone Furoate (ARNUITY 100mcg ELLIPTA) 1 puff DAILY INH 03/20/21 09:00 Albuterol Sulfate (Ventolin Hfa Inhaler) 1 puff PRN Q6HRS PRN INH SHORTNESS OF BREATH 03/20/21 09:00 Divalproex Sodium (Depakote Er) 1,000 mg QHS PO 03/21/21 21:00 03/22/21 21:48 DC Olanzapine (ZyPREXA ZYDIS) 2.5 mg PRN Q2HRS PRN PO PSYCHOSIS 03/21/21 16:30 Divalproex Sodium (Depakote Er) 250 mg QHS PO 03/21/21 21:00 03/22/21 21:48 DC Venlafaxine HCl (Effexor) 75 mg DAILY PO 03/23/21 09:00 03/27/21 08:06 Divalproex Sodium (Depakote Sprinkles) 1,250 mg HS PO 03/22/21 22:00 03/23/21 16:47 DC 03/22/21 22:00 Olanzapine (ZyPREXA) 10 mg DAILY PO 03/24/21 09:00 03/26/21 10:18 DC 03/25/21 08:11 Divalproex Sodium (Depakote Sprinkles) 500 mg DAILY PO 03/24/21 09:00 03/27/21 08:05 Divalproex Sodium (Depakote Sprinkles) 750 mg HS PO 03/24/21 21:00 03/27/21 20:38 Divalproex Sodium (Depakote Sprinkles) 1,250 mg HS PO 03/23/21 21:00 03/23/21 21:01 DC 03/23/21 20:10 Olanzapine (ZyPREXA) 10 mg BID PO 03/26/21 21:00 03/27/21 20:39 I have reviewed the current psychotropics carefully including drug interactions. Risk benefit ratio favors no change other than as noted in my dictated progress note. Diagnosis: Problems: (1) Schizoaffective disorder, bipolar type (2) Bipolar disorder, current episode mixed, severe, with psychotic features (3) Impulse disorder, unspecified (4) Anxiety disorder, unspecified RHETT MATHEW MD Mar 27, 2021 22:13
--- NOTE | 2021-03-27 23:05 | NUR ---
Patient laid in her bed and feigned sleep while nurse was in her room. She refused to open her eyes and was not interactive. CHILD DAY CARE PROVIDER was able to determine that patient "did not feel good" and would take her meds in a bite of applesauce. When nurse returned to the room with the apple sauce, patient was again feigning sleep and would not open her mouth. Eventually she opened it, but then spit the medication laced applesauce onto the sheet next to her. Nurse asked patient several times what "didn't feel good" patient was either unable or unwilling to tell nurse and continued to lay in the bed with her eyes closed. Patient does not appear to be having hallucinations or delusions at this time. Patient has CBC scheduled for 03/28 to follow up on her HGB level.
--- NOTE | 2021-03-28 05:54 | NUR ---
Patient called nurse into her bathroom this morning and stated that she "has cancer". When nurse obtained further information patient stated that the hospital where she went to the ER sent her here when they should have treated her for cancer. Patient states that she has stomach cancer. There is nothing in patients medical record that indicates that this is true. Patient denies pain when asked. Will continue to monitor.
[2021-03-28 06:09] VITALS: BP 103/66
--- NOTE | 2021-03-28 06:55 | PDOC ---
Exam Note: Jose Note: This note is a late entry for 03/27/2021 covers elements not covered in my initial note. Subjective: The patient was seen individually in the evening of 03/27/2021 with Nory CEBALLOS, discussed and reviewed the chart. The patient slept 1-1/2 hours previous night. She refused her medications and threw them on the floor, refusing oxygen. Review of Systems: Ambulation impaired. No CV, , pulmonary, eye system symptoms on review. Mental Status Exam: The patient is oriented to herself and situation. Speech is coherent, rapid. Abstraction fair. Computation impaired. Language function intact. Attention span short. Mood and affect quite labile. Insight very limited. No suicidal or homicidal ideation. Laboratory Data: Reviewed. Impression: Schizoaffective disorder, bipolar type mixed with psychotic feature s. Anxiety disorder unspecified. Impulse control disorder unspecified. Plan: Continue current psychotropics. Adjust psychotropics as clinically indicated. Continue to encourage to take her psychotropics. We may consider Risperdal Consta if symptoms persist and medication compliance is an issue. Assessment: Vital Signs/I&O: Vital Signs Date Time Temp Pulse Resp B/P (MAP) Pulse Ox O2 Delivery O2 Flow Rate FiO2 03/28/21 06:09 97.8 92 18 103/66 (78) 96 03/24/21 06:03 Nasal Cannula 2.0 I & O 03/27/21 03/27/21 03/28/21 15:00 23:00 07:00 Intake Total 720 ml 300 ml Balance 720 ml 300 ml Labs: Laboratory Tests Test 03/27/21 07:26 Glucose (Fingerstick) 121 mg/dL (70-99) H Current Medications: Meds: Laboratory Tests Test 03/27/21 07:26 Glucose (Fingerstick) 121 mg/dL Current Medications Medications (Trade) Dose Ordered Sig/Denise Route PRN Reason Start Time Stop Time Status Last Admin Dose Admin Acetaminophen (Tylenol) 650 mg PRN Q6HRS PRN PO MILD PAIN / TEMP > 100.3'F 03/19/21 17:00 Multi-Ingredient Ointment (Analgesic [place]) 1 uzair PRN QID PRN TP MUSCLE PAIN 03/19/21 17:00 03/19/21 19:27 DC Al Hydroxide/Mg Hydroxide (Mylanta Plus Xs) 15 ml PRN AFTMEALHC PRN PO DYSPEPSIA 03/19/21 17:00 03/19/21 19:26 DC Magnesium Hydroxide (Milk Of Magnesia) 2,400 mg PRN QHS PRN PO CONSTIPATION 03/19/21 17:00 03/19/21 19:14 DC Acetaminophen (Tylenol) 650 mg PRN Q6HRS PRN PO PAIN/FEVER 03/19/21 18:15 Cancel Amlodipine Besylate (Norvasc) 5 mg DAILY PO 03/20/21 09:00 03/27/21 08:06 Aspirin (Aspirin Chewable) 81 mg DAILY PO 03/20/21 09:00 03/27/21 08:05 Divalproex Sodium (Depakote Sprinkles) 500 mg DAILY PO 03/20/21 09:00 03/21/21 16:33 DC 03/20/21 09:34 Latanoprost (Xalatan) 1 drop QHS OU 03/19/21 21:00 Lisinopril (Prinivil) 10 mg DAILY PO 03/20/21 09:00 03/19/21 19:19 DC Al Hydroxide/Mg Hydroxide (Mylanta Plus Xs) 15 ml PRN AFTMEALHC PRN PO HEARTBURN / GAS 03/19/21 18:15 Melatonin (Melatonin) 3 mg QHS PO 03/19/21 21:00 03/27/21 20:39 Mirtazapine (Remeron) 7.5 mg HS PO 03/19/21 21:00 03/19/21 22:33 DC Mirtazapine (Remeron) 30 mg QHS PO 03/19/21 21:00 03/27/21 20:39 Nicotine (Nicoderm Cq 14mg Patch) 1 patch DAILY TD 03/19/21 18:30 03/22/21 17:55 DC Olanzapine (ZyPREXA) 5 mg DAILY PO 03/20/21 09:00 03/23/21 16:47 DC 03/23/21 09:00 Olanzapine (ZyPREXA) 10 mg QHS PO 03/19/21 21:00 03/26/21 10:19 DC 03/25/21 20:11 Risperidone (RisperDAL) 2 mg DAILY PO 03/20/21 09:00 03/27/21 08:05 Trazodone HCl (Desyrel) 50 mg PRN QHS PRN PO INSOMNIA 03/19/21 18:15 03/19/21 22:10 Non-Formulary Medication (Albuterol Sulfate (Proair Respiclick)) 1 puff Q6HRS PRN INH SHORTNESS OF BREATH 03/19/21 18:15 UNV Lisinopril (Prinivil) 5 mg DAILY PO 03/20/21 09:00 03/27/21 08:06 Non-Formulary Medication (Budesonide/ Formoterol Fumarate (Symbicort 160-4.5 Mcg Inhaler)) 2 puff BID IH 03/19/21 21:00 UNV Divalproex Sodium (Depakote Sprinkles) 500 mg HS PO 03/19/21 21:00 03/21/21 16:33 DC 03/20/21 20:49 Docusate Sodium (Colace) 100 mg BID PO 03/19/21 21:00 03/26/21 10:32 DC 03/25/21 20:12 Non-Formulary Medication (Latanoprost/Pf (Latanoprost 0.005% Eye Drop)) 1 drop QHS OU 03/19/21 21:00 UNV Magnesium Hydroxide (Milk Of Magnesia) 2,400 mg PRN DAILY PRN PO CONSTIPATION 03/19/21 19:15 Metformin HCl (Glucophage) 1,000 mg DAILYWBKFT PO 03/20/21 08:00 03/27/21 08:05 Multi-Ingredient Ointment (Analgesic [place]) 1 uzair PRN Q6HRS PRN TP MUSCLE PAIN 03/19/21 19:15 Atorvastatin Calcium (Lipitor) 5 mg QHS PO 03/19/21 21:00 03/27/21 20:39 Non-Formulary Medication (Pravastatin Sodium ) 20 mg DAILY PO 03/20/21 09:00 UNV Non-Formulary Medication (Tiotropium [place] (Spiriva)) 1 cap BID IH 03/19/21 21:00 UNV Non-Formulary Medication (Venlafaxine Hcl (Venlafaxine Hcl Er)) 37.5 mg DAILY PO 03/20/21 09:00 03/19/21 19:11 DC Venlafaxine HCl (Effexor Xr) 75 mg DAILY PO 03/20/21 09:00 03/22/21 17:33 DC 03/22/21 08:34 Albuterol/ Ipratropium (Duoneb) 3 ml RTQID NEB 03/19/21 20:00 03/20/21 07:59 DC Budesonide (Pulmicort) 0.5 mg RTBID NEB 03/19/21 20:00 03/21/21 08:08 DC Albuterol Sulfate (Ventolin) 2.5 mg PRN Q6HRS PRN NEB SHORTNESS OF BREATH 03/19/21 19:30 Cancel Albuterol/ Ipratropium (Combivent Respimat 20-100 Mcg) 1 puff RTQID INH 03/20/21 12:00 03/24/21 16:01 Fluticasone Furoate (ARNUITY 100mcg ELLIPTA) 1 puff DAILY INH 03/20/21 09:00 Albuterol Sulfate (Ventolin Hfa Inhaler) 1 puff PRN Q6HRS PRN INH SHORTNESS OF BREATH 03/20/21 09:00 Divalproex Sodium (Depakote Er) 1,000 mg QHS PO 03/21/21 21:00 03/22/21 21:48 DC Olanzapine (ZyPREXA ZYDIS) 2.5 mg PRN Q2HRS PRN PO PSYCHOSIS 03/21/21 16:30 Divalproex Sodium (Depakote Er) 250 mg QHS PO 03/21/21 21:00 03/22/21 21:48 DC Venlafaxine HCl (Effexor) 75 mg DAILY PO 03/23/21 09:00 03/27/21 08:06 Divalproex Sodium (Depakote Sprinkles) 1,250 mg HS PO 03/22/21 22:00 03/23/21 16:47 DC 03/22/21 22:00 Olanzapine (ZyPREXA) 10 mg DAILY PO 03/24/21 09:00 03/26/21 10:18 DC 03/25/21 08:11 Divalproex Sodium (Depakote Sprinkles) 500 mg DAILY PO 03/24/21 09:00 03/27/21 08:05 Divalproex Sodium (Depakote Sprinkles) 750 mg HS PO 03/24/21 21:00 03/27/21 20:38 Divalproex Sodium (Depakote Sprinkles) 1,250 mg HS PO 03/23/21 21:00 03/23/21 21:01 DC 03/23/21 20:10 Olanzapine (ZyPREXA) 10 mg BID PO 03/26/21 21:00 03/27/21 20:39 I have reviewed the current psychotropics carefully including drug interactions. Risk benefit ratio favors no change other than as noted in my dictated progress note. Diagnosis: Problems: (1) Schizoaffective disorder, bipolar type (2) Anxiety disorder, unspecified (3) Bipolar disorder, current episode mixed, severe, with psychotic features (4) Impulse disorder, unspecified RHETT MATHEW MD Mar 28, 2021 06:55
[2021-03-28 06:57] LABS: BASO % 0 % (0-3); EOS # 0.1 x10^3/uL (0.0-0.7); EOS % 2 % (0-3); HEMATOCRIT 26.1 % (36.0-47.0); HEMOGLOBIN 8.4 g/dL (12.0-15.5); LYMPH # 1.1 x10^3/uL (1.0-4.8); LYMPH % 17 % (24-48); MEAN CORPUSCULAR HEMOGLOBIN 29 pg (25-35); MEAN CORPUSCULAR HGB CONC 32 g/dL (31-37); MEAN CORPUSCULAR VOLUME 90 fL (79-100); MONO # 0.7 x10^3/uL (0.0-1.1); MONO % 10 % (0-9); NEUT # 4.8 x10^3uL (1.8-7.7); NEUT % 71 % (31-73); PLATELET COUNT 183 x10^3/uL (140-400); RED BLOOD COUNT 2.91 x10^6/uL (3.50-5.40); RED CELL DISTRIBUTION WIDTH 16.2 % (11.5-14.5); WHITE BLOOD COUNT 6.8 x10^3/uL (4.0-11.0)
[2021-03-28] MEDS: metFORMIN 500 MG TABLET PO SCH (07:57)
[2021-03-28] MEDS: VENLAFAXINE 75 MG TABLET. PO SCH (07:57)
[2021-03-28] MEDS: OLANZapine 10 MG TABLET PO SCH (07:57)
[2021-03-28] MEDS: IPRATROPIUM/ALBUTEROL 20/100mcg/INH INHALER. INH SCH ×4 (08:00→20:00)
[2021-03-28] MEDS: LISINOPRIL 5 MG TABLET. PO SCH (08:00)
[2021-03-28] MEDS: ASPIRIN CHEWABLE 81 MG TABLET. PO SCH (08:00)
[2021-03-28] MEDS: DIVALPROEX 125 MG CAP.SPRINK PO SCH (08:00)
[2021-03-28] MEDS: amLODIPine BESYLATE 5 MG TABLET PO SCH (08:00)
[2021-03-28] MEDS: risperiDONE 2 MG TABLET. PO SCH (08:00)
[2021-03-28] MEDS: FLUTICASONE FUROATE 100mcg/INH ELLIPTA INHALER. INH SCH (08:01)
--- NOTE | 2021-03-28 10:32 | NUR ---
Nursing note: Pt in her room at time of AM med pass and assessment. She continues to refuse inhalers and is very med resistive. Pt was trying to refuse her meds all together, but did eventually agree to take 3 pills whole. The rest of her AM meds were crushed and hidden in chocolate ensure with breakfast which she was compliant in drinking. As I was leaving her room pt stated "Just because you're dressed in all black doesn't mean anything to me." Pt was later given a shower and cursed at staff and made rude remarks to the staff that was attempting to assist her. She is currently sitting in her room talking to herself. Will continue to monitor.
--- NOTE | 2021-03-28 11:00 | NUR ---
Nursing note: Dr. Walter made aware of pt's hgb level. Dr. Walter states it's "not at the level to transfuse so we'll just watch it". No orders received.
--- NOTE | 2021-03-28 12:15 | NUR ---
Treatment team note: Pt is eating 75% of meals and sleeping on average 5 hours. Pt continues to be delusional and is often found in her room talking to herself. Pt is very resistive to medications and will often refuse things such as applesauce and drinks believing her medications are placed in the drink; in which pt will refuse them. Pt is also refusing her inhaler and has refused supplemental oxygen as staff have reported sats in the 80s. Pt reports not feeling well and is mainly withdrawn to her room. Pt is convinced that she has stomach cancer. Pt has no group participation but continues to be encouraged. It is noted that pt HGB continues to drop so a CBC, CMP and Blood occult will be drawn. SW is working with pt dtr in finding placement.
--- NOTE | 2021-03-28 14:32 | NUR ---
WEEKLY ACTIVITY THERAPY NOTE Date of Admission: 03/19/21 Date of AT Assessment: 03/22 Precipitating behaviors that initiated intake and admission: at home, hearing voices, agitation, refusing to eat or take her medications, refusing cares, paranoia, auditory hallucinations, thoughts of suicide, insomnia Goal aimed: increase stress management and relaxation skills Initial Goal: Pt will participate in at least three individual or group Activity Therapy sessions before discharge. Weekly progress towards goal: on track (03/23-Chocolate fun facts and milkshakes) Group participation level: 1 min Weekly highlights: accepted milkshake Sunday afternoon Behaviors observed: withdrawn to room, limited to no interest in groups Plan: no change to goal at this time Beneficial adaptations: food
[2021-03-28 15:47] VITALS: BP 149/67
[2021-03-28] MEDS: VALPROATE ACID 250 MG/5 ML ORAL SOLUTION PO SCH (19:57)
[2021-03-28] MEDS: MELATONIN 3 MG TABLET PO SCH (19:58)
[2021-03-28] MEDS: ATORVASTATIN CALCIUM 10 MG TABLET. PO SCH (19:58)
[2021-03-28] MEDS: MIRTAZAPINE 30 MG TABLET PO SCH (19:58)
[2021-03-28] MEDS: LATANOPROST 0.005% OPHTH SOLUTION 2.5ML BOTTLE. OU SCH (21:24)
--- NOTE | 2021-03-28 22:16 | PDOC ---
Exam Note: Jose Note: Please also refer to the separate dictated note~for this date of service dictated separately.~Patient seen individually. Discussed the patient with Nursing staff reviewed the chart.~Reviewed interim history and current functioning. Reviewed vital signs,~Labs/ Radiology~and current medications noted below. Continue current treatment with the changes noted in the dictated addendum note Assessment: Vital Signs/I&O: Vital Signs Date Time Temp Pulse Resp B/P (MAP) Pulse Ox O2 Delivery O2 Flow Rate FiO2 03/28/21 15:47 97.8 59 20 149/67 (94) 93 03/24/21 06:03 Nasal Cannula 2.0 I & O 03/27/21 03/27/21 03/28/21 15:00 23:00 07:00 Intake Total 720 ml 300 ml Balance 720 ml 300 ml Labs: Laboratory Tests Test 03/28/21 06:39 03/28/21 07:41 White Blood Count 6.8 x10^3/uL (4.0-11.0) Red Blood Count 2.91 x10^6/uL (3.50-5.40) L Hemoglobin 8.4 g/dL (12.0-15.5) L Hematocrit 26.1 % (36.0-47.0) L Mean Corpuscular Volume 90 fL (79-100) Mean Corpuscular Hemoglobin 29 pg (25-35) Mean Corpuscular Hemoglobin Concent 32 g/dL (31-37) Red Cell Distribution Width 16.2 % (11.5-14.5) H Platelet Count 183 x10^3/uL (140-400) Neutrophils (%) (Auto) 71 % (31-73) Lymphocytes (%) (Auto) 17 % (24-48) L Monocytes (%) (Auto) 10 % (0-9) H Eosinophils (%) (Auto) 2 % (0-3) Basophils (%) (Auto) 0 % (0-3) Neutrophils # (Auto) 4.8 x10^3uL (1.8-7.7) Lymphocytes # (Auto) 1.1 x10^3/uL (1.0-4.8) Monocytes # (Auto) 0.7 x10^3/uL (0.0-1.1) Eosinophils # (Auto) 0.1 x10^3/uL (0.0-0.7) Basophils # (Auto) 0.0 x10^3/uL (0.0-0.2) Glucose (Fingerstick) 116 mg/dL (70-99) H Current Medications: Meds: Laboratory Tests Test 03/28/21 06:39 03/28/21 07:41 White Blood Count 6.8 x10^3/uL Red Blood Count 2.91 x10^6/uL Hemoglobin 8.4 g/dL Hematocrit 26.1 % Mean Corpuscular Volume 90 fL Mean Corpuscular Hemoglobin 29 pg Mean Corpuscular Hemoglobin Concent 32 g/dL Red Cell Distribution Width 16.2 % Platelet Count 183 x10^3/uL Neutrophils (%) (Auto) 71 % Lymphocytes (%) (Auto) 17 % Monocytes (%) (Auto) 10 % Eosinophils (%) (Auto) 2 % Basophils (%) (Auto) 0 % Neutrophils # (Auto) 4.8 x10^3uL Lymphocytes # (Auto) 1.1 x10^3/uL Monocytes # (Auto) 0.7 x10^3/uL Eosinophils # (Auto) 0.1 x10^3/uL Basophils # (Auto) 0.0 x10^3/uL Glucose (Fingerstick) 116 mg/dL Current Medications Medications (Trade) Dose Ordered Sig/Denise Route PRN Reason Start Time Stop Time Status Last Admin Dose Admin Acetaminophen (Tylenol) 650 mg PRN Q6HRS PRN PO MILD PAIN / TEMP > 100.3'F 03/19/21 17:00 Multi-Ingredient Ointment (Analgesic [place]) 1 uzair PRN QID PRN TP MUSCLE PAIN 03/19/21 17:00 03/19/21 19:27 DC Al Hydroxide/Mg Hydroxide (Mylanta Plus Xs) 15 ml PRN AFTMEALHC PRN PO DYSPEPSIA 03/19/21 17:00 03/19/21 19:26 DC Magnesium Hydroxide (Milk Of Magnesia) 2,400 mg PRN QHS PRN PO CONSTIPATION 03/19/21 17:00 03/19/21 19:14 DC Acetaminophen (Tylenol) 650 mg PRN Q6HRS PRN PO PAIN/FEVER 03/19/21 18:15 Cancel Amlodipine Besylate (Norvasc) 5 mg DAILY PO 03/20/21 09:00 7/12/21 08:00 Aspirin (Aspirin Chewable) 81 mg DAILY PO 03/20/21 09:00 03/28/21 08:00 Divalproex Sodium (Depakote Sprinkles) 500 mg DAILY PO 03/20/21 09:00 03/21/21 16:33 DC 03/20/21 09:34 Latanoprost (Xalatan) 1 drop QHS OU 03/19/21 21:00 Lisinopril (Prinivil) 10 mg DAILY PO 03/20/21 09:00 03/19/21 19:19 DC Al Hydroxide/Mg Hydroxide (Mylanta Plus Xs) 15 ml PRN AFTMEALHC PRN PO HEARTBURN / GAS 03/19/21 18:15 Melatonin (Melatonin) 3 mg QHS PO 03/19/21 21:00 03/28/21 19:58 Mirtazapine (Remeron) 7.5 mg HS PO 03/19/21 21:00 03/19/21 22:33 DC Mirtazapine (Remeron) 30 mg QHS PO 03/19/21 21:00 03/28/21 19:58 Nicotine (Nicoderm Cq 14mg Patch) 1 patch DAILY TD 03/19/21 18:30 03/22/21 17:55 DC Olanzapine (ZyPREXA) 5 mg DAILY PO 03/20/21 09:00 03/23/21 16:47 DC 03/23/21 09:00 Olanzapine (ZyPREXA) 10 mg QHS PO 03/19/21 21:00 03/26/21 10:19 DC 03/25/21 20:11 Risperidone (RisperDAL) 2 mg DAILY PO 03/20/21 09:00 03/28/21 14:38 DC 03/28/21 08:00 Trazodone HCl (Desyrel) 50 mg PRN QHS PRN PO INSOMNIA 03/19/21 18:15 03/19/21 22:10 Non-Formulary Medication (Albuterol Sulfate (Proair Respiclick)) 1 puff Q6HRS PRN INH SHORTNESS OF BREATH 03/19/21 18:15 UNV Lisinopril (Prinivil) 5 mg DAILY PO 03/20/21 09:00 03/28/21 08:00 Non-Formulary Medication (Budesonide/ Formoterol Fumarate (Symbicort 160-4.5 Mcg Inhaler)) 2 puff BID IH 03/19/21 21:00 UNV Divalproex Sodium (Depakote Sprinkles) 500 mg HS PO 03/19/21 21:00 03/21/21 16:33 DC 03/20/21 20:49 Docusate Sodium (Colace) 100 mg BID PO 03/19/21 21:00 03/26/21 10:32 DC 03/25/21 20:12 Non-Formulary Medication (Latanoprost/Pf (Latanoprost 0.005% Eye Drop)) 1 drop QHS OU 03/19/21 21:00 UNV Magnesium Hydroxide (Milk Of Magnesia) 2,400 mg PRN DAILY PRN PO CONSTIPATION 03/19/21 19:15 Metformin HCl (Glucophage) 1,000 mg DAILYWBKFT PO 03/20/21 08:00 03/28/21 07:57 Multi-Ingredient Ointment (Analgesic [place]) 1 uzair PRN Q6HRS PRN TP MUSCLE PAIN 03/19/21 19:15 Atorvastatin Calcium (Lipitor) 5 mg QHS PO 03/19/21 21:00 03/28/21 19:58 Non-Formulary Medication (Pravastatin Sodium ) 20 mg DAILY PO 03/20/21 09:00 UNV Non-Formulary Medication (Tiotropium [place] (Spiriva)) 1 cap BID IH 03/19/21 21:00 UNV Non-Formulary Medication (Venlafaxine Hcl (Venlafaxine Hcl Er)) 37.5 mg DAILY PO 03/20/21 09:00 03/19/21 19:11 DC Venlafaxine HCl (Effexor Xr) 75 mg DAILY PO 03/20/21 09:00 03/22/21 17:33 DC 03/22/21 08:34 Albuterol/ Ipratropium (Duoneb) 3 ml RTQID NEB 03/19/21 20:00 03/20/21 07:59 DC Budesonide (Pulmicort) 0.5 mg RTBID NEB 03/19/21 20:00 03/21/21 08:08 DC Albuterol Sulfate (Ventolin) 2.5 mg PRN Q6HRS PRN NEB SHORTNESS OF BREATH 03/19/21 19:30 Cancel Albuterol/ Ipratropium (Combivent Respimat 20-100 Mcg) 1 puff RTQID INH 03/20/21 12:00 03/24/21 16:01 Fluticasone Furoate (ARNUITY 100mcg ELLIPTA) 1 puff DAILY INH 03/20/21 09:00 Albuterol Sulfate (Ventolin Hfa Inhaler) 1 puff PRN Q6HRS PRN INH SHORTNESS OF BREATH 03/20/21 09:00 Divalproex Sodium (Depakote Er) 1,000 mg QHS PO 03/21/21 21:00 03/22/21 21:48 DC Olanzapine (ZyPREXA ZYDIS) 2.5 mg PRN Q2HRS PRN PO PSYCHOSIS 03/21/21 16:30 Divalproex Sodium (Depakote Er) 250 mg QHS PO 03/21/21 21:00 03/22/21 21:48 DC Venlafaxine HCl (Effexor) 75 mg DAILY PO 03/23/21 09:00 03/28/21 07:57 Divalproex Sodium (Depakote Sprinkles) 1,250 mg HS PO 03/22/21 22:00 03/23/21 16:47 DC 03/22/21 22:00 Olanzapine (ZyPREXA) 10 mg DAILY PO 03/24/21 09:00 03/26/21 10:18 DC 03/25/21 08:11 Divalproex Sodium (Depakote Sprinkles) 500 mg DAILY PO 03/24/21 09:00 03/28/21 14:38 DC 03/28/21 08:00 Divalproex Sodium (Depakote Sprinkles) 750 mg HS PO 03/24/21 21:00 03/28/21 14:38 DC 03/27/21 20:38 Divalproex Sodium (Depakote Sprinkles) 1,250 mg HS PO 03/23/21 21:00 03/23/21 21:01 DC 03/23/21 20:10 Olanzapine (ZyPREXA) 10 mg BID PO 03/26/21 21:00 03/28/21 14:38 DC 03/28/21 07:57 Valproic Acid (Depakene) 500 mg DAILY PO 03/29/21 09:00 Valproic Acid (Depakene) 750 mg QHS PO 03/28/21 21:00 03/28/21 19:57 Risperidone (RisperDAL) 2 mg DAILY SL 03/29/21 09:00 Olanzapine (ZyPREXA ZYDIS) 10 mg BID PO 03/28/21 21:00 03/28/21 20:00 Current Medications Medications (Trade) Dose Ordered Sig/Denise Route PRN Reason Start Time Stop Time Status Last Admin Dose Admin Valproic Acid (Depakene) 750 mg QHS PO 03/28/21 21:00 03/28/21 19:57 Olanzapine (ZyPREXA ZYDIS) 10 mg BID PO 03/28/21 21:00 03/28/21 20:00 I have reviewed the current psychotropics carefully including drug interactions. Risk benefit ratio favors no change other than as noted in my dictated progress note. Diagnosis: Problems: (1) Schizoaffective disorder, bipolar type (2) Anxiety disorder, unspecified (3) Bipolar disorder, current episode mixed, severe, with psychotic features (4) Impulse disorder, unspecified RHETT MATHEW MD Mar 28, 2021 22:16
--- NOTE | 2021-03-28 22:40 | NUR ---
Patient refused to take medications for this nurse and refused to interact with nurse. CAREY [place] was able to talk patient into taking her HS medications in grape juice. Patient did not want this nurse to assess her and refused to answer any questions. Patient did not have a bowel movement tonight and the order for fecal occult test is still pending. Will continue to monitor.
--- NOTE | 2021-03-29 07:19 | PDOC ---
Exam Note: Jose Note: This note is a late entry for 03/28/2021 covers elements not covered in my initial note. Subjective: The patient was seen individually in the morning of 03/28/2021 for a treatment team meeting with Serina Calix, Indu Hunter (social media campaign manager), Marina, activity therapy and Nory CEBALLOS, discussed and reviewed the chart. The patient slept 8 hours previous night. Appetite is 80%. She refused inhalers, etc. She convinced she has stomach cancer. We will defer to Dr. Walter. Hemoglobin is dropped somewhat. We will check her stool for occult blood. At times she is fixated on only taking 3 of her pills. She was making some bizarre statements to the nursing staff being dressed in black and that did not mean anything to her. I met with her in her room at some length in the evening. We have changed most of her psychotropics to liquid as much as we can and she seemed a little calmer by the time I met with her in the evening. Review of Systems: Ambulation impaired. No CV, , pulmonary, eye system symptoms on review. Mental Status Exam: The patient is oriented to herself and situation. Speech is coherent, rapid. Abstraction fair. Computation impaired. Language function intact. Attention span short. Mood and affect quite labile. Insight very limited. No suicidal or homicidal ideation. Laboratory Data: Reviewed. Impression: Schizoaffective disorder, bipolar type mixed with psychotic features. Anxiety disorder unspecified. Impulse control disorder unspecified. Plan: Continue current psychotropics. Adjust psychotropics as clinically indicated. We will continue to improve compliance with changing to liquid and consider long-acting injectable antipsychotics if needed. Assessment: Vital Signs/I&O: Vital Signs Date Time Temp Pulse Resp B/P (MAP) Pulse Ox O2 Delivery O2 Flow Rate FiO2 03/28/21 15:47 97.8 59 20 149/67 (94) 93 03/24/21 06:03 Nasal Cannula 2.0 I & O 03/28/21 03/28/21 03/29/21 15:00 23:00 07:00 Intake Total 480 ml 360 ml Balance 480 ml 360 ml Labs: Laboratory Tests Test 03/28/21 07:41 Glucose (Fingerstick) 116 mg/dL (70-99) H Current Medications: Meds: Laboratory Tests Test 03/28/21 07:41 Glucose (Fingerstick) 116 mg/dL Current Medications Medications (Trade) Dose Ordered Sig/Denise Route PRN Reason Start Time Stop Time Status Last Admin Dose Admin Acetaminophen (Tylenol) 650 mg PRN Q6HRS PRN PO MILD PAIN / TEMP > 100.3'F 03/19/21 17:00 Multi-Ingredient Ointment (Analgesic [place]) 1 uzair PRN QID PRN TP MUSCLE PAIN 03/19/21 17:00 03/19/21 19:27 DC Al Hydroxide/Mg Hydroxide (Mylanta Plus Xs) 15 ml PRN AFTMEALHC PRN PO DYSPEPSIA 03/19/21 17:00 03/19/21 19:26 DC Magnesium Hydroxide (Milk Of Magnesia) 2,400 mg PRN QHS PRN PO CONSTIPATION 03/19/21 17:00 03/19/21 19:14 DC Acetaminophen (Tylenol) 650 mg PRN Q6HRS PRN PO PAIN/FEVER 03/19/21 18:15 Cancel Amlodipine Besylate (Norvasc) 5 mg DAILY PO 03/20/21 09:00 03/28/21 08:00 Aspirin (Aspirin Chewable) 81 mg DAILY PO 03/20/21 09:00 03/28/21 08:00 Divalproex Sodium (Depakote Sprinkles) 500 mg DAILY PO 03/20/21 09:00 03/21/21 16:33 DC 03/20/21 09:34 Latanoprost (Xalatan) 1 drop QHS OU 03/19/21 21:00 Lisinopril (Prinivil) 10 mg DAILY PO 03/20/21 09:00 03/19/21 19:19 DC Al Hydroxide/Mg Hydroxide (Mylanta Plus Xs) 15 ml PRN AFTMEALHC PRN PO HEARTBURN / GAS 03/19/21 18:15 Melatonin (Melatonin) 3 mg QHS PO 03/19/21 21:00 03/28/21 19:58 Mirtazapine (Remeron) 7.5 mg HS PO 03/19/21 21:00 03/19/21 22:33 DC Mirtazapine (Remeron) 30 mg QHS PO 03/19/21 21:00 03/28/21 19:58 Nicotine (Nicoderm Cq 14mg Patch) 1 patch DAILY TD 03/19/21 18:30 03/22/21 17:55 DC Olanzapine (ZyPREXA) 5 mg DAILY PO 03/20/21 09:00 03/23/21 16:47 DC 03/23/21 09:00 Olanzapine (ZyPREXA) 10 mg QHS PO 03/19/21 21:00 03/26/21 10:19 DC 03/25/21 20:11 Risperidone (RisperDAL) 2 mg DAILY PO 03/20/21 09:00 03/28/21 14:38 DC 03/28/21 08:00 Trazodone HCl (Desyrel) 50 mg PRN QHS PRN PO INSOMNIA 03/19/21 18:15 03/19/21 22:10 Non-Formulary Medication (Albuterol Sulfate (Proair Respiclick)) 1 puff Q6HRS PRN INH SHORTNESS OF BREATH 03/19/21 18:15 UNV Lisinopril (Prinivil) 5 mg DAILY PO 03/20/21 09:00 03/28/21 08:00 Non-Formulary Medication (Budesonide/ Formoterol Fumarate (Symbicort 160-4.5 Mcg Inhaler)) 2 puff BID IH 03/19/21 21:00 UNV Divalproex Sodium (Depakote Sprinkles) 500 mg HS PO 03/19/21 21:00 03/21/21 16:33 DC 03/20/21 20:49 Docusate Sodium (Colace) 100 mg BID PO 03/19/21 21:00 03/26/21 10:32 DC 03/25/21 20:12 Non-Formulary Medication (Latanoprost/Pf (Latanoprost 0.005% Eye Drop)) 1 drop QHS OU 03/19/21 21:00 UNV Magnesium Hydroxide (Milk Of Magnesia) 2,400 mg PRN DAILY PRN PO CONSTIPATION 03/19/21 19:15 Metformin HCl (Glucophage) 1,000 mg DAILYWBKFT PO 03/20/21 08:00 03/28/21 07:57 Multi-Ingredient Ointment (Analgesic [place]) 1 uzair PRN Q6HRS PRN TP MUSCLE PAIN 03/19/21 19:15 Atorvastatin Calcium (Lipitor) 5 mg QHS PO 03/19/21 21:00 03/28/21 19:58 Non-Formulary Medication (Pravastatin Sodium ) 20 mg DAILY PO 03/20/21 09:00 UNV Non-Formulary Medication (Tiotropium [place] (Spiriva)) 1 cap BID IH 03/19/21 21:00 UNV Non-Formulary Medication (Venlafaxine Hcl (Venlafaxine Hcl Er)) 37.5 mg DAILY PO 03/20/21 09:00 03/19/21 19:11 DC Venlafaxine HCl (Effexor Xr) 75 mg DAILY PO 03/20/21 09:00 03/22/21 17:33 DC 03/22/21 08:34 Albuterol/ Ipratropium (Duoneb) 3 ml RTQID NEB 03/19/21 20:00 03/20/21 07:59 DC Budesonide (Pulmicort) 0.5 mg RTBID NEB 03/19/21 20:00 03/21/21 08:08 DC Albuterol Sulfate (Ventolin) 2.5 mg PRN Q6HRS PRN NEB SHORTNESS OF BREATH 03/19/21 19:30 Cancel Albuterol/ Ipratropium (Combivent Respimat 20-100 Mcg) 1 puff RTQID INH 03/20/21 12:00 03/24/21 16:01 Fluticasone Furoate (ARNUITY 100mcg ELLIPTA) 1 puff DAILY INH 03/20/21 09:00 Albuterol Sulfate (Ventolin Hfa Inhaler) 1 puff PRN Q6HRS PRN INH SHORTNESS OF BREATH 03/20/21 09:00 Divalproex Sodium (Depakote Er) 1,000 mg QHS PO 03/21/21 21:00 03/22/21 21:48 DC Olanzapine (ZyPREXA ZYDIS) 2.5 mg PRN Q2HRS PRN PO PSYCHOSIS 03/21/21 16:30 Divalproex Sodium (Depakote Er) 250 mg QHS PO 03/21/21 21:00 03/22/21 21:48 DC Venlafaxine HCl (Effexor) 75 mg DAILY PO 03/23/21 09:00 03/28/21 07:57 Divalproex Sodium (Depakote Sprinkles) 1,250 mg HS PO 03/22/21 22:00 03/23/21 16:47 DC 03/22/21 22:00 Olanzapine (ZyPREXA) 10 mg DAILY PO 03/24/21 09:00 03/26/21 10:18 DC 03/25/21 08:11 Divalproex Sodium (Depakote Sprinkles) 500 mg DAILY PO 03/24/21 09:00 03/28/21 14:38 DC 03/28/21 08:00 Divalproex Sodium (Depakote Sprinkles) 750 mg HS PO 03/24/21 21:00 03/28/21 14:38 DC 03/27/21 20:38 Divalproex Sodium (Depakote Sprinkles) 1,250 mg HS PO 03/23/21 21:00 03/23/21 21:01 DC 03/23/21 20:10 Olanzapine (ZyPREXA) 10 mg BID PO 03/26/21 21:00 03/28/21 14:38 DC 03/28/21 07:57 Valproic Acid (Depakene) 500 mg DAILY PO 03/29/21 09:00 Valproic Acid (Depakene) 750 mg QHS PO 03/28/21 21:00 03/28/21 19:57 Risperidone (RisperDAL) 2 mg DAILY SL 03/29/21 09:00 Olanzapine (ZyPREXA ZYDIS) 10 mg BID PO 03/28/21 21:00 03/28/21 20:00 Current Medications Medications (Trade) Dose Ordered Sig/Denise Route PRN Reason Start Time Stop Time Status Last Admin Dose Admin Valproic Acid (Depakene) 750 mg QHS PO 03/28/21 21:00 03/28/21 19:57 Olanzapine (ZyPREXA ZYDIS) 10 mg BID PO 03/28/21 21:00 03/28/21 20:00 I have reviewed the current psychotropics carefully including drug interactions. Risk benefit ratio favors no change other than as noted in my dictated progress note. Diagnosis: Problems: (1) Schizoaffective disorder, bipolar type (2) Bipolar disorder, current episode mixed, severe, with psychotic features (3) Impulse disorder, unspecified (4) Anxiety disorder, unspecified RHETT MATHEW MD 13, 2021 07:19
[2021-03-29] MEDS: VENLAFAXINE 75 MG TABLET. PO SCH (07:59)
[2021-03-29] MEDS: LISINOPRIL 5 MG TABLET. PO SCH (08:00)
[2021-03-29] MEDS: IPRATROPIUM/ALBUTEROL 20/100mcg/INH INHALER. INH SCH ×4 (08:00→21:34)
[2021-03-29] MEDS: metFORMIN 500 MG TABLET PO SCH (08:04)
[2021-03-29] MEDS: amLODIPine BESYLATE 5 MG TABLET PO SCH (08:08)
[2021-03-29] MEDS: VALPROATE ACID 250 MG/5 ML ORAL SOLUTION PO SCH ×2 (08:08→21:35)
[2021-03-29] MEDS: FLUTICASONE FUROATE 100mcg/INH ELLIPTA INHALER. INH SCH (08:09)
[2021-03-29] MEDS: ASPIRIN CHEWABLE 81 MG TABLET. PO SCH (08:09)
[2021-03-29] MEDS: risperiDONE ORAL 1 MG/ML 30ml BOTTLE. SL SCH (08:09)
[2021-03-29 09:26] VITALS: BP 127/76
--- NOTE | 2021-03-29 10:00 | NUR ---
ANITA completed concurrent review with Beth yesterday 03/28 adn the case had to be reviewed. ANITA received a message that pt case will be continued and the next review will be 03/31.
--- NOTE | 2021-03-29 11:13 | NUR ---
Nursing note: Pt in her room this AM for med pass and assessment. She was compliant with taking 3 pills whole, the rest were crushed and mixed in grape juice. Pt took a couple sips of the juice and then refused the rest of it because "that's not grape juice, it's too thick". Grape juice was placed on her breakfast tray for her to drink with breakfast, but pt continued to refuse to drink it. Meds were not attempted to be given a second time d/t pt consuming some of the juice and not knowing how much of the meds she refused. She has been withdrawn to her room all morning. Will continue to monitor.
--- NOTE | 2021-03-29 11:35 | TX PLAN ---
Interdisciplinary Tx Plan Admission Information Mar 19, 2021 at 15:44 Legal Status (on Admission): Voluntary DPOA/Guardian Name: Lolis Yip Contact Other Contact Verified Code Status: Full Code Allergies: Coded Allergies: morphine (Verified Allergy, Intermediate, Unknown, 10/09/20) Diagnoses Primary Diagnosis: Schizoaffective D/O, Bipolar type, mixed with psychotic features unspecified mild cognitive impairment Reasons for Admission: Delusions, Relation/conflict, Hallucinations, Suspicious/paranoid, Confusion/Disoriented, Poor impulse control Problem in Patient's Words: This may be more Dementia than Schizoaffective because she cannot seem to turn the corner. Additional Admission Comments: According to the intake, pt is paranoid, suspicious, delusional, disorganized, combative, and non-compliant with medications. Problems Active Problems: delusional disorganized combative non-compliant with medications Inactive Problems: eating and sleeping okay Pt Strengths/Limitations Ability for [place]: Poor Cognitive Functioning/Ability: Fair Communication Skills/Ability: Fair Financial Resources: Fair Insight/Judgement: Poor Intellectual Ability: Fair Physical Health: Fair Social Skills: Poor Stability in Family: Good Stability in School/Work: Poor Verbal Skills: Fair Discharge Criteria Discharge Criteria: No need for close observ., Adequate arrangements @DC, Improved behavior, Improved mood/thought Preliminary Discharge Plan Preliminary DC Plan: Placement Needed Initial D/C Plan Pt is not able to discharge home; lease is up at the end of the month and need further care than can be provided. Identified Discharge Needs: Referrals for a higher level of care is needed. Currently Utilized Resources Currently Utilized Resources/P: Primary Care Physician Identified Problems/Hx/Goals Objectives/Short-Term Goals Short Term Goals: Dec. Hallucination/Delus, Dec. Outbursts, Medication Stabilization, Monitor Med Effects, Promote Coping Skill Short Term Goals in Patient's: N/A Interventions/Frequency Staff Interventions/Frequency&: Psychiatrist to assess pt at least 3x per week for medication management. Social Work to assess pt at least 2x per week to identify barriers to care and discharge planning for placement. Nursing to assess medication effects, behavior modification and completion of 15 minute checks daily. Encourage participation in group activities (if applicable) or 1:1 engagement based off Activity Dept goals. History Vocational History: Pt worked many years at [employer] and after 25 years, retired. 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 Education: Pt graduated high school (12th grade), received her associates and went on to receive her Bachelors but never finished the last semester of school. Pt is unsure as to what degree pt was striving for. Community Follow-up Primary Care Physician Referrals to higher level of care Treatment Plan Explained Patient/Title Clerk had this treatment plan explained to him/her as indicated by the signature below and has been given the opportunity to ask questions and make suggestions: Date: Patient/Title Clerk Signature: Status Update Update Pt is eating 75% of meals and sleeping on average 5 hours. Pt continues to be delusional and is often found in her room talking to herself. Pt is very resistive to medications and will often refuse things such as applesauce and drinks believing her medications are placed in the drink; in which pt will refuse them. Pt is also refusing her inhaler and has refused supplemental oxygen as staff have reported sats in the 80s. Pt reports not feeling well and is mainly withdrawn to her room. Pt is convinced that she has stomach cancer. Pt has no group participation but continues to be encouraged. It is noted that pt HGB continues to drop so a CBC, CMP and Blood occult will be drawn. ANITA is working with pt dtr in finding placement. JASPER DIGGS Mar 29, 2021 11:35
[2021-03-29 16:10] VITALS: BP 144/78
[2021-03-29] MEDS: LATANOPROST 0.005% OPHTH SOLUTION 2.5ML BOTTLE. OU SCH (21:00)
[2021-03-29] MEDS: MELATONIN 3 MG TABLET PO SCH (21:35)
[2021-03-29] MEDS: ATORVASTATIN CALCIUM 10 MG TABLET. PO SCH (21:35)
[2021-03-29] MEDS: MIRTAZAPINE 30 MG TABLET PO SCH (21:35)
--- NOTE | 2021-03-29 21:36 | NUR ---
patient is argumentative and refusing to take any of her medications. Nurse spoke with patient several times, patient agreed to take her olanzapine and nothing else. Recorded medications as refused, non-administered. Patient would only drink water and refused snack so there was not a way the medications could be hidden in food or drink. Patient admits she is paranoid. She stated she would be agreeable to taking ONE pill of depakote, her dose is 750mg at HS which is not able to be given in one pill.
--- NOTE | 2021-03-29 22:09 | PDOC ---
Exam Note: Jose Note: Please also refer to the separate dictated note~for this date of service dictated separately.~Patient seen individually. Discussed the patient with Nursing staff reviewed the chart.~Reviewed interim history and current functioning. Reviewed vital signs,~Labs/ Radiology~and current medications noted below. Continue current treatment with the changes noted in the dictated addendum note Assessment: Vital Signs/I&O: Vital Signs Date Time Temp Pulse Resp B/P (MAP) Pulse Ox O2 Delivery O2 Flow Rate FiO2 03/29/21 16:10 97.3 99 18 144/78 (100) 92 2.0 03/24/21 06:03 Nasal Cannula I & O 03/28/21 03/28/21 03/29/21 15:00 23:00 07:00 Intake Total 480 ml 360 ml Balance 480 ml 360 ml Labs: Laboratory Tests Test 03/29/21 07:37 Glucose (Fingerstick) 169 mg/dL (70-99) H Current Medications: Meds: Laboratory Tests Test 03/29/21 07:37 Glucose (Fingerstick) 169 mg/dL Current Medications Medications (Trade) Dose Ordered Sig/Denise Route PRN Reason Start Time Stop Time Status Last Admin Dose Admin Acetaminophen (Tylenol) 650 mg PRN Q6HRS PRN PO MILD PAIN / TEMP > 100.3'F 03/19/21 17:00 Multi-Ingredient Ointment (Analgesic [place]) 1 uzair PRN QID PRN TP MUSCLE PAIN 03/19/21 17:00 03/19/21 19:27 DC Al Hydroxide/Mg Hydroxide (Mylanta Plus Xs) 15 ml PRN AFTMEALHC PRN PO DYSPEPSIA 03/19/21 17:00 03/19/21 19:26 DC Magnesium Hydroxide (Milk Of Magnesia) 2,400 mg PRN QHS PRN PO CONSTIPATION 03/19/21 17:00 03/19/21 19:14 DC Acetaminophen (Tylenol) 650 mg PRN Q6HRS PRN PO PAIN/FEVER 03/19/21 18:15 Cancel Amlodipine Besylate (Norvasc) 5 mg DAILY PO 03/20/21 09:00 03/29/21 08:08 Aspirin (Aspirin Chewable) 81 mg DAILY PO 03/20/21 09:00 03/29/21 08:09 Divalproex Sodium (Depakote Sprinkles) 500 mg DAILY PO 03/20/21 09:00 03/21/21 16:33 DC 03/20/21 09:34 Latanoprost (Xalatan) 1 drop QHS OU 03/19/21 21:00 Lisinopril (Prinivil) 10 mg DAILY PO 03/20/21 09:00 03/19/21 19:19 DC Al Hydroxide/Mg Hydroxide (Mylanta Plus Xs) 15 ml PRN AFTMEALHC PRN PO HEARTBURN / GAS 03/19/21 18:15 Melatonin (Melatonin) 3 mg QHS PO 03/19/21 21:00 03/28/21 19:58 Mirtazapine (Remeron) 7.5 mg HS PO 03/19/21 21:00 03/19/21 22:33 DC Mirtazapine (Remeron) 30 mg QHS PO 03/19/21 21:00 03/28/21 19:58 Nicotine (Nicoderm Cq 14mg Patch) 1 patch DAILY TD 03/19/21 18:30 03/22/21 17:55 DC Olanzapine (ZyPREXA) 5 mg DAILY PO 03/20/21 09:00 03/23/21 16:47 DC 03/23/21 09:00 Olanzapine (ZyPREXA) 10 mg QHS PO 03/19/21 21:00 03/26/21 10:19 DC 03/25/21 20:11 Risperidone (RisperDAL) 2 mg DAILY PO 03/20/21 09:00 03/28/21 14:38 DC 03/28/21 08:00 Trazodone HCl (Desyrel) 50 mg PRN QHS PRN PO INSOMNIA 03/19/21 18:15 03/19/21 22:10 Non-Formulary Medication (Albuterol Sulfate (Proair Respiclick)) 1 puff Q6HRS PRN INH SHORTNESS OF BREATH 03/19/21 18:15 UNV Lisinopril (Prinivil) 5 mg DAILY PO 03/20/21 09:00 03/29/21 08:00 Non-Formulary Medication (Budesonide/ Formoterol Fumarate (Symbicort 160-4.5 Mcg Inhaler)) 2 puff BID IH 03/19/21 21:00 UNV Divalproex Sodium (Depakote Sprinkles) 500 mg HS PO 03/19/21 21:00 03/21/21 16:33 DC 03/20/21 20:49 Docusate Sodium (Colace) 100 mg BID PO 03/19/21 21:00 03/26/21 10:32 DC 03/25/21 20:12 Non-Formulary Medication (Latanoprost/Pf (Latanoprost 0.005% Eye Drop)) 1 drop QHS OU 03/19/21 21:00 UNV Magnesium Hydroxide (Milk Of Magnesia) 2,400 mg PRN DAILY PRN PO CONSTIPATION 03/19/21 19:15 03/29/21 13:23 Metformin HCl (Glucophage) 1,000 mg DAILYWBKFT PO 03/20/21 08:00 03/29/21 08:04 Multi-Ingredient Ointment (Analgesic [place]) 1 uzair PRN Q6HRS PRN TP MUSCLE PAIN 03/19/21 19:15 Atorvastatin Calcium (Lipitor) 5 mg QHS PO 03/19/21 21:00 03/28/21 19:58 Non-Formulary Medication (Pravastatin Sodium ) 20 mg DAILY PO 03/20/21 09:00 UNV Non-Formulary Medication (Tiotropium [place] (Spiriva)) 1 cap BID IH 03/19/21 21:00 UNV Non-Formulary Medication (Venlafaxine Hcl (Venlafaxine Hcl Er)) 37.5 mg DAILY PO 03/20/21 09:00 03/19/21 19:11 DC Venlafaxine HCl (Effexor Xr) 75 mg DAILY PO 03/20/21 09:00 03/22/21 17:33 DC 03/22/21 08:34 Albuterol/ Ipratropium (Duoneb) 3 ml RTQID NEB 03/19/21 20:00 03/20/21 07:59 DC Budesonide (Pulmicort) 0.5 mg RTBID NEB 03/19/21 20:00 03/21/21 08:08 DC Albuterol Sulfate (Ventolin) 2.5 mg PRN Q6HRS PRN NEB SHORTNESS OF BREATH 03/19/21 19:30 Cancel Albuterol/ Ipratropium (Combivent Respimat 20-100 Mcg) 1 puff RTQID INH 03/20/21 12:00 03/24/21 16:01 Fluticasone Furoate (ARNUITY 100mcg ELLIPTA) 1 puff DAILY INH 03/20/21 09:00 Albuterol Sulfate (Ventolin Hfa Inhaler) 1 puff PRN Q6HRS PRN INH SHORTNESS OF BREATH 03/20/21 09:00 Divalproex Sodium (Depakote Er) 1,000 mg QHS PO 03/21/21 21:00 03/22/21 21:48 DC Olanzapine (ZyPREXA ZYDIS) 2.5 mg PRN Q2HRS PRN PO PSYCHOSIS 03/21/21 16:30 Divalproex Sodium (Depakote Er) 250 mg QHS PO 03/21/21 21:00 03/22/21 21:48 DC Venlafaxine HCl (Effexor) 75 mg DAILY PO 03/23/21 09:00 03/29/21 07:59 Divalproex Sodium (Depakote Sprinkles) 1,250 mg HS PO 03/22/21 22:00 03/23/21 16:47 DC 03/22/21 22:00 Olanzapine (ZyPREXA) 10 mg DAILY PO 03/24/21 09:00 03/26/21 10:18 DC 03/25/21 08:11 Divalproex Sodium (Depakote Sprinkles) 500 mg DAILY PO 03/24/21 09:00 03/28/21 14:38 DC 03/28/21 08:00 Divalproex Sodium (Depakote Sprinkles) 750 mg HS PO 03/24/21 21:00 03/28/21 14:38 DC 03/27/21 20:38 Divalproex Sodium (Depakote Sprinkles) 1,250 mg HS PO 03/23/21 21:00 03/23/21 21:01 DC 03/23/21 20:10 Olanzapine (ZyPREXA) 10 mg BID PO 03/26/21 21:00 03/28/21 14:38 DC 03/28/21 07:57 Valproic Acid (Depakene) 500 mg DAILY PO 03/29/21 09:00 03/29/21 08:08 Valproic Acid (Depakene) 750 mg QHS PO 03/28/21 21:00 03/28/21 19:57 Risperidone (RisperDAL) 2 mg DAILY SL 03/29/21 09:00 03/29/21 08:09 Olanzapine (ZyPREXA ZYDIS) 10 mg BID PO 03/28/21 21:00 03/29/21 21:30 Current Medications Medications (Trade) Dose Ordered Sig/Denise Route PRN Reason Start Time Stop Time Status Last Admin Dose Admin Valproic Acid (Depakene) 500 mg DAILY PO 03/29/21 09:00 03/29/21 08:08 Risperidone (RisperDAL) 2 mg DAILY SL 03/29/21 09:00 03/29/21 08:09 I have reviewed the current psychotropics carefully including drug interactions. Risk benefit ratio favors no change other than as noted in my dictated progress note. Diagnosis: Problems: (1) Schizoaffective disorder, bipolar type (2) Anxiety disorder, unspecified (3) Bipolar disorder, current episode mixed, severe, with psychotic features (4) Impulse disorder, unspecified RHETT MATHEW MD Mar 29, 2021 22:09
[2021-03-30 02:24] LABS: FECAL OB PT NEGATIVE (NEG)
--- NOTE | 2021-03-30 02:29 | NUR ---
Stool sample obtained for fecal occult blood test. Test resulted Negative.
[2021-03-30 06:30] VITALS: BP 145/76
--- NOTE | 2021-03-30 07:06 | PDOC ---
Exam Note: Jose Note: This note is a late entry for 03/29/2021 covers elements not covered in my initial note. Subjective: The patient was seen individually in the evening of 03/29/2021 with Nory CEBALLOS, discussed and reviewed the chart. The patient slept 6-1/2 hours previous night. She took previous night psychotropics in grape juice but refused this today. I met with her in her room. She is quite paranoid, anxious again talking about discharge, has high-pitched tone. Review of Systems: Ambulation impaired. No CV, , pulmonary, eye system symptoms on review. Mental Status Exam: The patient is oriented to herself. Insight, judgment, recent memory is impaired. Language function intact. Attention span short. Mood and affect somewhat anxious, labile. No suicidal or homicidal ideation. Laboratory Data: Reviewed. Impression: Schizoaffective disorder, bipolar type mixed with psychotic features. Anxiety disorder unspecified. Impulse control disorder unspecified. Plan: Continue current psychotropics. Adjust psychotropics as clinically indicated. Assessment: Vital Signs/I&O: Vital Signs Date Time Temp Pulse Resp B/P (MAP) Pulse Ox O2 Delivery O2 Flow Rate FiO2 03/30/21 06:30 97.5 104 20 145/76 (99) 91 03/29/21 16:10 2.0 I & O 03/29/21 03/29/21 03/30/21 14:59 22:59 06:59 Intake Total 840 ml 360 ml Balance 840 ml 360 ml Labs: Laboratory Tests Test 03/29/21 07:37 03/29/21 19:45 Glucose (Fingerstick) 169 mg/dL (70-99) H Stool Occult Blood Negative (NEG) Current Medications: Meds: Laboratory Tests Test 03/29/21 07:37 03/29/21 19:45 Glucose (Fingerstick) 169 mg/dL Stool Occult Blood Negative Current Medications Medications (Trade) Dose Ordered Sig/Denise Route PRN Reason Start Time Stop Time Status Last Admin Dose Admin Acetaminophen (Tylenol) 650 mg PRN Q6HRS PRN PO MILD PAIN / TEMP > 100.3'F 03/19/21 17:00 Multi-Ingredient Ointment (Analgesic [place]) 1 uzair PRN QID PRN TP MUSCLE PAIN 03/19/21 17:00 03/19/21 19:27 DC Al Hydroxide/Mg Hydroxide (Mylanta Plus Xs) 15 ml PRN AFTMEALHC PRN PO DYSPEPSIA 03/19/21 17:00 03/19/21 19:26 DC Magnesium Hydroxide (Milk Of Magnesia) 2,400 mg PRN QHS PRN PO CONSTIPATION 03/19/21 17:00 03/19/21 19:14 DC Acetaminophen (Tylenol) 650 mg PRN Q6HRS PRN PO PAIN/FEVER 03/19/21 18:15 Cancel Amlodipine Besylate (Norvasc) 5 mg DAILY PO 03/20/21 09:00 03/29/21 08:08 Aspirin (Aspirin Chewable) 81 mg DAILY PO 03/20/21 09:00 03/29/21 08:09 Divalproex Sodium (Depakote Sprinkles) 500 mg DAILY PO 03/20/21 09:00 03/21/21 16:33 DC 03/20/21 09:34 Latanoprost (Xalatan) 1 drop QHS OU 03/19/21 21:00 Lisinopril (Prinivil) 10 mg DAILY PO 03/20/21 09:00 03/19/21 19:19 DC Al Hydroxide/Mg Hydroxide (Mylanta Plus Xs) 15 ml PRN AFTMEALHC PRN PO HEARTBURN / GAS 03/19/21 18:15 Melatonin (Melatonin) 3 mg QHS PO 03/19/21 21:00 03/28/21 19:58 Mirtazapine (Remeron) 7.5 mg HS PO 03/19/21 21:00 03/19/21 22:33 DC Mirtazapine (Remeron) 30 mg QHS PO 03/19/21 21:00 03/28/21 19:58 Nicotine (Nicoderm Cq 14mg Patch) 1 patch DAILY TD 03/19/21 18:30 03/22/21 17:55 DC Olanzapine (ZyPREXA) 5 mg DAILY PO 03/20/21 09:00 03/23/21 16:47 DC 03/23/21 09:00 Olanzapine (ZyPREXA) 10 mg QHS PO 03/19/21 21:00 03/26/21 10:19 DC 03/25/21 20:11 Risperidone (RisperDAL) 2 mg DAILY PO 03/20/21 09:00 03/28/21 14:38 DC 03/28/21 08:00 Trazodone HCl (Desyrel) 50 mg PRN QHS PRN PO INSOMNIA 03/19/21 18:15 03/19/21 22:10 Non-Formulary Medication (Albuterol Sulfate (Proair Respiclick)) 1 puff Q6HRS PRN INH SHORTNESS OF BREATH 03/19/21 18:15 UNV Lisinopril (Prinivil) 5 mg DAILY PO 03/20/21 09:00 03/29/21 08:00 Non-Formulary Medication (Budesonide/ Formoterol Fumarate (Symbicort 160-4.5 Mcg Inhaler)) 2 puff BID IH 03/19/21 21:00 UNV Divalproex Sodium (Depakote Sprinkles) 500 mg HS PO 03/19/21 21:00 03/21/21 16:33 DC 03/20/21 20:49 Docusate Sodium (Colace) 100 mg BID PO 03/19/21 21:00 03/26/21 10:32 DC 03/25/21 20:12 Non-Formulary Medication (Latanoprost/Pf (Latanoprost 0.005% Eye Drop)) 1 drop QHS OU 03/19/21 21:00 UNV Magnesium Hydroxide (Milk Of Magnesia) 2,400 mg PRN DAILY PRN PO CONSTIPATION 03/19/21 19:15 03/29/21 13:23 Metformin HCl (Glucophage) 1,000 mg DAILYWBKFT PO 03/20/21 08:00 03/29/21 08:04 Multi-Ingredient Ointment (Analgesic [place]) 1 uzair PRN Q6HRS PRN TP MUSCLE PAIN 03/19/21 19:15 Atorvastatin Calcium (Lipitor) 5 mg QHS PO 03/19/21 21:00 03/28/21 19:58 Non-Formulary Medication (Pravastatin Sodium ) 20 mg DAILY PO 03/20/21 09:00 UNV Non-Formulary Medication (Tiotropium [place] (Spiriva)) 1 cap BID IH 03/19/21 21:00 UNV Non-Formulary Medication (Venlafaxine Hcl (Venlafaxine Hcl Er)) 37.5 mg DAILY PO 03/20/21 09:00 03/19/21 19:11 DC Venlafaxine HCl (Effexor Xr) 75 mg DAILY PO 03/20/21 09:00 03/22/21 17:33 DC 03/22/21 08:34 Albuterol/ Ipratropium (Duoneb) 3 ml RTQID NEB 03/19/21 20:00 03/20/21 07:59 DC Budesonide (Pulmicort) 0.5 mg RTBID NEB 03/19/21 20:00 03/21/21 08:08 DC Albuterol Sulfate (Ventolin) 2.5 mg PRN Q6HRS PRN NEB SHORTNESS OF BREATH 03/19/21 19:30 Cancel Albuterol/ Ipratropium (Combivent Respimat 20-100 Mcg) 1 puff RTQID INH 03/20/21 12:00 03/24/21 16:01 Fluticasone Furoate (ARNUITY 100mcg ELLIPTA) 1 puff DAILY INH 03/20/21 09:00 Albuterol Sulfate (Ventolin Hfa Inhaler) 1 puff PRN Q6HRS PRN INH SHORTNESS OF BREATH 03/20/21 09:00 Divalproex Sodium (Depakote Er) 1,000 mg QHS PO 03/21/21 21:00 03/22/21 21:48 DC Olanzapine (ZyPREXA ZYDIS) 2.5 mg PRN Q2HRS PRN PO PSYCHOSIS 03/21/21 16:30 Divalproex Sodium (Depakote Er) 250 mg QHS PO 03/21/21 21:00 03/22/21 21:48 DC Venlafaxine HCl (Effexor) 75 mg DAILY PO 03/23/21 09:00 03/29/21 07:59 Divalproex Sodium (Depakote Sprinkles) 1,250 mg HS PO 03/22/21 22:00 03/23/21 16:47 DC 03/22/21 22:00 Olanzapine (ZyPREXA) 10 mg DAILY PO 03/24/21 09:00 03/26/21 10:18 DC 03/25/21 08:11 Divalproex Sodium (Depakote Sprinkles) 500 mg DAILY PO 03/24/21 09:00 03/28/21 14:38 DC 03/28/21 08:00 Divalproex Sodium (Depakote Sprinkles) 750 mg HS PO 03/24/21 21:00 03/28/21 14:38 DC 03/27/21 20:38 Divalproex Sodium (Depakote Sprinkles) 1,250 mg HS PO 03/23/21 21:00 03/23/21 21:01 DC 03/23/21 20:10 Olanzapine (ZyPREXA) 10 mg BID PO 03/26/21 21:00 03/28/21 14:38 DC 03/28/21 07:57 Valproic Acid (Depakene) 500 mg DAILY PO 03/29/21 09:00 03/29/21 08:08 Valproic Acid (Depakene) 750 mg QHS PO 03/28/21 21:00 03/28/21 19:57 Risperidone (RisperDAL) 2 mg DAILY SL 03/29/21 09:00 03/29/21 08:09 Olanzapine (ZyPREXA ZYDIS) 10 mg BID PO 03/28/21 21:00 03/29/21 21:30 Current Medications Medications (Trade) Dose Ordered Sig/Denise Route PRN Reason Start Time Stop Time Status Last Admin Dose Admin Valproic Acid (Depakene) 500 mg DAILY PO 03/29/21 09:00 03/29/21 08:08 Risperidone (RisperDAL) 2 mg DAILY 03/29/21 09:00 03/29/21 08:09 I have reviewed the current psychotropics carefully including drug interactions. Risk benefit ratio favors no change other than as noted in my dictated progress note. Diagnosis: Problems: (1) Schizoaffective disorder, bipolar type (2) Bipolar disorder, current episode mixed, severe, with psychotic features (3) Impulse disorder, unspecified (4) Anxiety disorder, unspecified RHETT MATHEW MD Mar 30, 2021 07:06
[2021-03-30 07:10] LABS: ALBUMIN 3.2 g/dL (3.4-5.0); ALBUMIN/GLOBULIN RATIO 0.7 (1.0-1.7); CALCIUM 8.7 mg/dL (8.5-10.1); CREATININE 0.6 mg/dL (0.6-1.0); GFR 118.2; POTASSIUM 4.5 mmol/L (3.5-5.1); TOTAL BILIRUBIN 0.2 mg/dL (0.2-1.0); TOTAL PROTEIN 7.7 g/dL (6.4-8.2)
[2021-03-30 07:17] LABS: BASO % 0 % (0-3); EOS # 0.1 x10^3/uL (0.0-0.7); EOS % 1 % (0-3); HEMATOCRIT 29.1 % (36.0-47.0); HEMOGLOBIN 9.3 g/dL (12.0-15.5); LYMPH # 0.8 x10^3/uL (1.0-4.8); LYMPH % 12 % (24-48); MEAN CORPUSCULAR HEMOGLOBIN 29 pg (25-35); MEAN CORPUSCULAR HGB CONC 32 g/dL (31-37); MEAN CORPUSCULAR VOLUME 90 fL (79-100); MONO # 0.8 x10^3/uL (0.0-1.1); MONO % 12 % (0-9); NEUT % 74 % (31-73); PLATELET COUNT 229 x10^3/uL (140-400); RED BLOOD COUNT 3.22 x10^6/uL (3.50-5.40); RED CELL DISTRIBUTION WIDTH 16.5 % (11.5-14.5); WHITE BLOOD COUNT 6.8 x10^3/uL (4.0-11.0)
[2021-03-30] MEDS: metFORMIN 500 MG TABLET PO SCH (08:00)
[2021-03-30] MEDS: IPRATROPIUM/ALBUTEROL 20/100mcg/INH INHALER. INH SCH ×4 (08:00→20:00)
[2021-03-30] MEDS: amLODIPine BESYLATE 5 MG TABLET PO SCH ×2 (08:09→09:00)
[2021-03-30] MEDS: VENLAFAXINE 75 MG TABLET. PO SCH ×2 (08:09→09:00)
[2021-03-30] MEDS: ASPIRIN CHEWABLE 81 MG TABLET. PO SCH ×2 (08:09→09:00)
[2021-03-30] MEDS: VALPROATE ACID 250 MG/5 ML ORAL SOLUTION PO SCH ×3 (08:09→21:00)
[2021-03-30] MEDS: LISINOPRIL 5 MG TABLET. PO SCH ×2 (08:09→09:00)
[2021-03-30] MEDS: risperiDONE ORAL 1 MG/ML 30ml BOTTLE. SL SCH ×2 (08:10→09:00)
[2021-03-30] MEDS: LATANOPROST 0.005% OPHTH SOLUTION 2.5ML BOTTLE. OU SCH ×2 (08:10→21:00)
[2021-03-30] MEDS: FLUTICASONE FUROATE 100mcg/INH ELLIPTA INHALER. INH SCH (08:12)
--- NOTE | 2021-03-30 11:42 | NUR ---
Nursing Note: Pt. was in dining perkins during breakfast, but started to become agitated and delusional and went back to her room soon after. She went back to her room and nursing came to give her, her medications. Pt stated she would not take her medications from her designated nurse, because she believed she did not have a license. Nurse asked if she would take them from the charge nurse, Radha and pt. agreed. Radha went into her room and administered her morning medications and she was compliant and took them all. She was withdrawn to her room most of the day and stayed pretty quiet unless she was at a meal and around others, she then became agitated and delusional. Pt. did voice that she was worried about her family and being gone from them, she was able to talk to the nurse and calm some of those anxious thoughts.
[2021-03-30 16:05] VITALS: BP 101/59
--- NOTE | 2021-03-30 20:30 | NUR ---
At 1955, pt noted to be lying in the hallway between the dining room and the [facility] nurse's station. Pt claims to have fallen as she was attempting to make it to the dining room before the door closed. She stated that she didn't want to miss lunch. Pt has notable swelling above her Left eye, pt denies pain elsewhere. Pt vital signs obtained and her O2 sat noted to be 76% on RA. Pt assessed for injury prior to staff assisting her to a standing position. Upon standing, pt c/o dizziness and therefore was assisted by staff x2 walking to her room. Once in her room, pt compliant with staff placing her on O2 per nasal cannula at 2.5L, sats then increased to 93%. Pt requesting something to eat so staff called for a box lunch. Dr. Argueta and pt DPOA/daughter notified of fall. CT head ordered and radiology notified. I returned to pt room at approximately 2014 to administer pt medications, however she refused all of her HS medications stating "It's not time for my night meds, where's my morning meds?" I attempted to re-orient her without success. Pt became agitated, yelling at me, "you need to tell me what each one is before you put it back in that cup!" As I was telling what her HS medications were, she yelled, "those are not my morning meds! I want my metformin and my olanzapine. If you don't have those 3, then I'm not taking anything!" BASEBALL HAND SEWER tried to convince her to take her medications but was also unsuccessful. Pt was taken down for her CT in w/c with O2 on, pt compliant with procedure. Pt offered her meds again upon returning to the unit but continued to refuse them.
--- NOTE | 2021-03-30 20:59 | RAD ---
EXAMINATION: CT head without IV contrast INDICATION:75 years, Female, head injury, status post falling down. COMPARISON: None TECHNIQUE: Spiral acquisition of contiguous images from the skull base to the vertex were obtained. S agittal and coronal 2D reformatted series were provided by the technologist. Soft tissue and bone win jaime algorithms were reviewed. Exposure: One or more of the following individualized dose reduction techniques were utilized for thi s examination: 1. Automated exposure control 2. Adjustment of the mA and/or kV according to patient size 3. Use of iterative reconstruction technique. FINDINGS: Neither mass, midline shift, intracranial hemorrhage, acute/subacute ischemic changes, nor extraaxial fluid collections are seen. Mild brain parenchymal volume loss. Supratentorial periventricular whit e matter disease, most likely representing chronic microangiopathic disease. 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 The paranasal sinuses, mastoid air cells, and middle ears are clear. The orbital contents appear with in normal limits. IMPRESSION: 1. No acute intracranial abnormality. 2. 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 Electronically signed by: Lucio Walters MD (03/30/2021 8:56 PM) [facility]
[2021-03-30] MEDS: ATORVASTATIN CALCIUM 10 MG TABLET. PO SCH (21:00)
[2021-03-30] MEDS: MIRTAZAPINE 30 MG TABLET PO SCH (21:00)
[2021-03-30] MEDS: MELATONIN 3 MG TABLET PO SCH (21:00)
--- NOTE | 2021-03-30 22:20 | PDOC ---
Exam Note: Jose Note: Please also refer to the separate dictated note~for this date of service dictated separately.~Patient seen individually. Discussed the patient with Nursing staff reviewed the chart.~Reviewed interim history and current functioning. Reviewed vital signs,~Labs/ Radiology~and current medications noted below. Continue current treatment with the changes noted in the dictated addendum note Assessment: Vital Signs/I&O: Vital Signs Date Time Temp Pulse Resp B/P (MAP) Pulse Ox O2 Delivery O2 Flow Rate FiO2 03/30/21 16:05 97.3 82 19 101/59 (73) 98 2.0 I & O 03/29/21 03/29/21 03/30/21 15:00 23:00 07:00 Intake Total 840 ml 360 ml Balance 840 ml 360 ml Labs: Laboratory Tests Test 03/30/21 06:32 03/30/21 07:39 White Blood Count 6.8 x10^3/uL (4.0-11.0) Red Blood Count 3.22 x10^6/uL (3.50-5.40) L Hemoglobin 9.3 g/dL (12.0-15.5) L Hematocrit 29.1 % (36.0-47.0) L Mean Corpuscular Volume 90 fL (79-100) Mean Corpuscular Hemoglobin 29 pg (25-35) Mean Corpuscular Hemoglobin Concent 32 g/dL (31-37) Red Cell Distribution Width 16.5 % (11.5-14.5) H Platelet Count 229 x10^3/uL (140-400) Neutrophils (%) (Auto) 74 % (31-73) H Lymphocytes (%) (Auto) 12 % (24-48) L Monocytes (%) (Auto) 12 % (0-9) H Eosinophils (%) (Auto) 1 % (0-3) Basophils (%) (Auto) 0 % (0-3) Neutrophils # (Auto) 5.0 x10^3uL (1.8-7.7) Lymphocytes # (Auto) 0.8 x10^3/uL (1.0-4.8) L Monocytes # (Auto) 0.8 x10^3/uL (0.0-1.1) Eosinophils # (Auto) 0.1 x10^3/uL (0.0-0.7) Basophils # (Auto) 0.0 x10^3/uL (0.0-0.2) Sodium Level 142 mmol/L (136-145) Potassium Level 4.5 mmol/L (3.5-5.1) Chloride Level 102 mmol/L (98-107) Carbon Dioxide Level 37 mmol/L (21-32) H Anion Gap 3 (6-14) L Blood Urea Nitrogen 20 mg/dL (7-20) Creatinine 0.6 mg/dL (0.6-1.0) Estimated GFR (Cockcroft-Gault) 118.2 BUN/Creatinine Ratio 33 (6-20) H Glucose Level 143 mg/dL (70-99) H Calcium Level 8.7 mg/dL (8.5-10.1) Total Bilirubin 0.2 mg/dL (0.2-1.0) Aspartate Amino Transferase (AST) 20 U/L (15-37) Alanine Aminotransferase (ALT) 16 U/L (14-59) Alkaline Phosphatase 50 U/L (46-116) Total Protein 7.7 g/dL (6.4-8.2) Albumin 3.2 g/dL (3.4-5.0) L Albumin/Globulin Ratio 0.7 (1.0-1.7) L Glucose (Fingerstick) 145 mg/dL (70-99) H Current Medications: Meds: Laboratory Tests Test 03/30/21 06:32 03/30/21 07:39 White Blood Count 6.8 x10^3/uL Red Blood Count 3.22 x10^6/uL Hemoglobin 9.3 g/dL Hematocrit 29.1 % Mean Corpuscular Volume 90 fL Mean Corpuscular Hemoglobin 29 pg Mean Corpuscular Hemoglobin Concent 32 g/dL Red Cell Distribution Width 16.5 % Platelet Count 229 x10^3/uL Neutrophils (%) (Auto) 74 % Lymphocytes (%) (Auto) 12 % Monocytes (%) (Auto) 12 % Eosinophils (%) (Auto) 1 % Basophils (%) (Auto) 0 % Neutrophils # (Auto) 5.0 x10^3uL Lymphocytes # (Auto) 0.8 x10^3/uL Monocytes # (Auto) 0.8 x10^3/uL Eosinophils # (Auto) 0.1 x10^3/uL Basophils # (Auto) 0.0 x10^3/uL Sodium Level 142 mmol/L Potassium Level 4.5 mmol/L Chloride Level 102 mmol/L Carbon Dioxide Level 37 mmol/L Anion Gap 3 Blood Urea Nitrogen 20 mg/dL Creatinine 0.6 mg/dL Estimated GFR (Cockcroft-Gault) 118.2 BUN/Creatinine Ratio 33 Glucose Level 143 mg/dL Calcium Level 8.7 mg/dL Total Bilirubin 0.2 mg/dL Aspartate Amino Transf (AST/SGOT) 20 U/L Alanine Aminotransferase (ALT/SGPT) 16 U/L Alkaline Phosphatase 50 U/L Total Protein 7.7 g/dL Albumin 3.2 g/dL Albumin/Globulin Ratio 0.7 Glucose (Fingerstick) 145 mg/dL Current Medications Medications (Trade) Dose Ordered Sig/Denise Route PRN Reason Start Time Stop Time Status Last Admin Dose Admin Acetaminophen (Tylenol) 650 mg PRN Q6HRS PRN PO MILD PAIN / TEMP > 100.3'F 03/19/21 17:00 Multi-Ingredient Ointment (Analgesic [place]) 1 uzair PRN QID PRN TP MUSCLE PAIN 03/19/21 17:00 03/19/21 19:27 DC Al Hydroxide/Mg Hydroxide (Mylanta Plus Xs) 15 ml PRN AFTMEALHC PRN PO DYSPEPSIA 03/19/21 17:00 03/19/21 19:26 DC Magnesium Hydroxide (Milk Of Magnesia) 2,400 mg PRN QHS PRN PO CONSTIPATION 03/19/21 17:00 03/19/21 19:14 DC Acetaminophen (Tylenol) 650 mg PRN Q6HRS PRN PO PAIN/FEVER 03/19/21 18:15 Cancel Amlodipine Besylate (Norvasc) 5 mg DAILY PO 03/20/21 09:00 03/30/21 09:00 Aspirin (Aspirin Chewable) 81 mg DAILY PO 03/20/21 09:00 03/30/21 09:00 Divalproex Sodium (Depakote Sprinkles) 500 mg DAILY PO 03/20/21 09:00 03/21/21 16:33 DC 03/20/21 09:34 Latanoprost (Xalatan) 1 drop QHS OU 03/19/21 21:00 Lisinopril (Prinivil) 10 mg DAILY PO 03/20/21 09:00 03/19/21 19:19 DC Al Hydroxide/Mg Hydroxide (Mylanta Plus Xs) 15 ml PRN AFTMEALHC PRN PO HEARTBURN / GAS 03/19/21 18:15 Melatonin (Melatonin) 3 mg QHS PO 03/19/21 21:00 03/28/21 19:58 Mirtazapine (Remeron) 7.5 mg HS PO 03/19/21 21:00 03/19/21 22:33 DC Mirtazapine (Remeron) 30 mg QHS PO 03/19/21 21:00 03/28/21 19:58 Nicotine (Nicoderm Cq 14mg Patch) 1 patch DAILY TD 03/19/21 18:30 03/22/21 17:55 DC Olanzapine (ZyPREXA) 5 mg DAILY PO 03/20/21 09:00 03/23/21 16:47 DC 03/23/21 09:00 Olanzapine (ZyPREXA) 10 mg QHS PO 03/19/21 21:00 03/26/21 10:19 DC 03/25/21 20:11 Risperidone (RisperDAL) 2 mg DAILY PO 03/20/21 09:00 03/28/21 14:38 DC 03/28/21 08:00 Trazodone HCl (Desyrel) 50 mg PRN QHS PRN PO INSOMNIA 03/19/21 18:15 03/19/21 22:10 Non-Formulary Medication (Albuterol Sulfate (Proair Respiclick)) 1 puff Q6HRS PRN INH SHORTNESS OF BREATH 03/19/21 18:15 UNV Lisinopril (Prinivil) 5 mg DAILY PO 03/20/21 09:00 03/30/21 09:00 Non-Formulary Medication (Budesonide/ Formoterol Fumarate (Symbicort 160-4.5 Mcg Inhaler)) 2 puff BID IH 03/19/21 21:00 UNV Divalproex Sodium (Depakote Sprinkles) 500 mg HS PO 03/19/21 21:00 03/21/21 16:33 DC 03/20/21 20:49 Docusate Sodium (Colace) 100 mg BID PO 03/19/21 21:00 03/26/21 10:32 DC 03/25/21 20:12 Non-Formulary Medication (Latanoprost/Pf (Latanoprost 0.005% Eye Drop)) 1 drop QHS OU 03/19/21 21:00 UNV Magnesium Hydroxide (Milk Of Magnesia) 2,400 mg PRN DAILY PRN PO CONSTIPATION 03/19/21 19:15 03/29/21 13:23 Metformin HCl (Glucophage) 1,000 mg DAILYWBKFT PO 03/20/21 08:00 03/30/21 08:00 Multi-Ingredient Ointment (Analgesic [place]) 1 uzair PRN Q6HRS PRN TP MUSCLE PAIN 03/19/21 19:15 Atorvastatin Calcium (Lipitor) 5 mg QHS PO 03/19/21 21:00 03/28/21 19:58 Non-Formulary Medication (Pravastatin Sodium ) 20 mg DAILY PO 03/20/21 09:00 UNV Non-Formulary Medication (Tiotropium [place] (Spiriva)) 1 cap BID IH 03/19/21 21:00 UNV Non-Formulary Medication (Venlafaxine Hcl (Venlafaxine Hcl Er)) 37.5 mg DAILY PO 03/20/21 09:00 03/19/21 19:11 DC Venlafaxine HCl (Effexor Xr) 75 mg DAILY PO 03/20/21 09:00 03/22/21 17:33 DC 03/22/21 08:34 Albuterol/ Ipratropium (Duoneb) 3 ml RTQID NEB 03/19/21 20:00 03/20/21 07:59 DC Budesonide (Pulmicort) 0.5 mg RTBID NEB 03/19/21 20:00 03/21/21 08:08 DC Albuterol Sulfate (Ventolin) 2.5 mg PRN Q6HRS PRN NEB SHORTNESS OF BREATH 03/19/21 19:30 Cancel Albuterol/ Ipratropium (Combivent Respimat 20-100 Mcg) 1 puff RTQID INH 03/20/21 12:00 03/24/21 16:01 Fluticasone Furoate (ARNUITY 100mcg ELLIPTA) 1 puff DAILY INH 03/20/21 09:00 Albuterol Sulfate (Ventolin Hfa Inhaler) 1 puff PRN Q6HRS PRN INH SHORTNESS OF BREATH 03/20/21 09:00 Divalproex Sodium (Depakote Er) 1,000 mg QHS PO 03/21/21 21:00 03/22/21 21:48 DC Olanzapine (ZyPREXA ZYDIS) 2.5 mg PRN Q2HRS PRN PO PSYCHOSIS 03/21/21 16:30 Divalproex Sodium (Depakote Er) 250 mg QHS PO 03/21/21 21:00 03/22/21 21:48 DC Venlafaxine HCl (Effexor) 75 mg DAILY PO 03/23/21 09:00 03/30/21 09:00 Divalproex Sodium (Depakote Sprinkles) 1,250 mg HS PO 03/22/21 22:00 03/23/21 16:47 DC 03/22/21 22:00 Olanzapine (ZyPREXA) 10 mg DAILY PO 03/24/21 09:00 03/26/21 10:18 DC 03/25/21 08:11 Divalproex Sodium (Depakote Sprinkles) 500 mg DAILY PO 03/24/21 09:00 03/28/21 14:38 DC 03/28/21 08:00 Divalproex Sodium (Depakote Sprinkles) 750 mg HS PO 03/24/21 21:00 03/28/21 14:38 DC 03/27/21 20:38 Divalproex Sodium (Depakote Sprinkles) 1,250 mg HS PO 03/23/21 21:00 03/23/21 21:01 DC 03/23/21 20:10 Olanzapine (ZyPREXA) 10 mg BID PO 03/26/21 21:00 03/28/21 14:38 DC 03/28/21 07:57 Valproic Acid (Depakene) 500 mg DAILY PO 03/29/21 09:00 03/30/21 09:00 Valproic Acid (Depakene) 750 mg QHS PO 03/28/21 21:00 03/28/21 19:57 Risperidone (RisperDAL) 2 mg DAILY SL 03/29/21 09:00 03/30/21 09:00 Olanzapine (ZyPREXA ZYDIS) 10 mg BID PO 03/28/21 21:00 03/30/21 09:00 I have reviewed the current psychotropics carefully including drug interactions. Risk benefit ratio favors no change other than as noted in my dictated progress note. Diagnosis: Problems: (1) Schizoaffective disorder, bipolar type (2) Bipolar disorder, current episode mixed, severe, with psychotic features (3) Impulse disorder, unspecified (4) Anxiety disorder, unspecified RHETT MATHEW MD Mar 30, 2021 22:20
[2021-03-31] MEDS: ACETAMINOPHEN 325 MG TABLET PO PRN (02:03)
[2021-03-31 06:36] VITALS: BP 123/69
[2021-03-31] MEDS: IPRATROPIUM/ALBUTEROL 20/100mcg/INH INHALER. INH SCH ×4 (08:00→20:00)
[2021-03-31] MEDS: VALPROATE ACID 250 MG/5 ML ORAL SOLUTION PO SCH ×3 (08:20→21:00)
[2021-03-31] MEDS: metFORMIN 500 MG TABLET PO SCH (08:21)
[2021-03-31] MEDS: LISINOPRIL 5 MG TABLET. PO SCH (08:21)
[2021-03-31] MEDS: VENLAFAXINE 75 MG TABLET. PO SCH (08:21)
[2021-03-31] MEDS: ASPIRIN CHEWABLE 81 MG TABLET. PO SCH (08:22)
--- NOTE | 2021-03-31 08:22 | PDOC ---
Exam Note: Jose Note: This note is a late entry for 03/30/2021 covers elements not covered in my initial note. Subjective: The patient was seen individually in the evening of 03/30/2021 with Cesar CEBALLOS, discussed and reviewed the chart. The patient slept 5 hours previous night. She is not compliant with medications at times. She takes at times only Zyprexa. Refused Depakote and meds in the morning. She has been somewhat sedated all day but has kept her oxygen in place and is calmer since she took her meds in the morning. Review of Systems: Shortness of breath on O2 supplements. Somewhat tired. Ambulation impaired. No CV, , eye system symptoms on review. Mental Status Exam: The patient is alert, oriented and cooperative. Speech moderate latency, coherent. Often responses monosyllabic. Abstraction fair. Computation impaired. Language function intact. Mood and affect withdrawn. Laboratory Data: Reviewed. Impression: Schizoaffective disorder, bipolar type mixed with psychotic features. Anxiety disorder unspecified. Impulse control disorder unspecified. Plan: Continue to persevere with assisting with medication compliance. Long- acting atypical antipsychotics are best avoided given the risk-benefit ratio. Most of her psychotropics are being changed to liquid when possible to help with compliance and hopefully as this is effective and helping stabilize her psychotic symptoms, she will be more accepting of her oral medications. She will need a higher level of care at discharge rather than returning home. Social service staff are working on this. Assessment: Vital Signs/I&O: Vital Signs Date Time Temp Pulse Resp B/P (MAP) Pulse Ox O2 Delivery O2 Flow Rate FiO2 03/31/21 06:36 98.2 97 22 123/69 (87) 97 Nasal Cannula 2.5 I & O 03/30/21 03/30/21 03/31/21 15:00 23:00 07:00 Intake Total 120 ml 360 ml Balance 120 ml 360 ml Labs: Laboratory Tests Test 03/31/21 07:26 Glucose (Fingerstick) 190 mg/dL (70-99) H Current Medications: Meds: Laboratory Tests Test 03/31/21 07:26 Glucose (Fingerstick) 190 mg/dL Current Medications Medications (Trade) Dose Ordered Sig/Denise Route PRN Reason Start Time Stop Time Status Last Admin Dose Admin Acetaminophen (Tylenol) 650 mg PRN Q6HRS PRN PO MILD PAIN / TEMP > 100.3'F 03/19/21 17:00 03/31/21 02:03 Multi-Ingredient Ointment (Analgesic [place]) 1 uzair PRN QID PRN TP MUSCLE PAIN 03/19/21 17:00 03/19/21 19:27 DC Al Hydroxide/Mg Hydroxide (Mylanta Plus Xs) 15 ml PRN AFTMEALHC PRN PO DYSPEPSIA 03/19/21 17:00 03/19/21 19:26 DC Magnesium Hydroxide (Milk Of Magnesia) 2,400 mg PRN QHS PRN PO CONSTIPATION 03/19/21 17:00 03/19/21 19:14 DC Acetaminophen (Tylenol) 650 mg PRN Q6HRS PRN PO PAIN/FEVER 03/19/21 18:15 Cancel Amlodipine Besylate (Norvasc) 5 mg DAILY PO 03/20/21 09:00 03/30/21 09:00 Aspirin (Aspirin Chewable) 81 mg DAILY PO 03/20/21 09:00 03/30/21 09:00 Divalproex Sodium (Depakote Sprinkles) 500 mg DAILY PO 03/20/21 09:00 03/21/21 16:33 DC 03/20/21 09:34 Latanoprost (Xalatan) 1 drop QHS OU 03/19/21 21:00 Lisinopril (Prinivil) 10 mg DAILY PO 03/20/21 09:00 03/19/21 19:19 DC Al Hydroxide/Mg Hydroxide (Mylanta Plus Xs) 15 ml PRN AFTMEALHC PRN PO HEARTBURN / GAS 03/19/21 18:15 Melatonin (Melatonin) 3 mg QHS PO 03/19/21 21:00 03/28/21 19:58 Mirtazapine (Remeron) 7.5 mg HS PO 03/19/21 21:00 03/19/21 22:33 DC Mirtazapine (Remeron) 30 mg QHS PO 03/19/21 21:00 03/28/21 19:58 Nicotine (Nicoderm Cq 14mg Patch) 1 patch DAILY TD 03/19/21 18:30 03/22/21 17:55 DC Olanzapine (ZyPREXA) 5 mg DAILY PO 03/20/21 09:00 03/23/21 16:47 DC 03/23/21 09:00 Olanzapine (ZyPREXA) 10 mg QHS PO 03/19/21 21:00 03/26/21 10:19 DC 03/25/21 20:11 Risperidone (RisperDAL) 2 mg DAILY PO 03/20/21 09:00 03/28/21 14:38 DC 03/28/21 08:00 Trazodone HCl (Desyrel) 50 mg PRN QHS PRN PO INSOMNIA 03/19/21 18:15 03/19/21 22:10 Non-Formulary Medication (Albuterol Sulfate (Proair Respiclick)) 1 puff Q6HRS PRN INH SHORTNESS OF BREATH 03/19/21 18:15 UNV Lisinopril (Prinivil) 5 mg DAILY PO 03/20/21 09:00 03/30/21 09:00 Non-Formulary Medication (Budesonide/ Formoterol Fumarate (Symbicort 160-4.5 Mcg Inhaler)) 2 puff BID IH 03/19/21 21:00 UNV Divalproex Sodium (Depakote Sprinkles) 500 mg HS PO 03/19/21 21:00 03/21/21 16:33 DC 03/20/21 20:49 Docusate Sodium (Colace) 100 mg BID PO 03/19/21 21:00 03/26/21 10:32 DC 03/25/21 20:12 Non-Formulary Medication (Latanoprost/Pf (Latanoprost 0.005% Eye Drop)) 1 drop QHS OU 03/19/21 21:00 UNV Magnesium Hydroxide (Milk Of Magnesia) 2,400 mg PRN DAILY PRN PO CONSTIPATION 03/19/21 19:15 03/29/21 13:23 Metformin HCl (Glucophage) 1,000 mg DAILYWBKFT PO 03/20/21 08:00 03/30/21 08:00 Multi-Ingredient Ointment (Analgesic [place]) 1 uzair PRN Q6HRS PRN TP MUSCLE PAIN 03/19/21 19:15 Atorvastatin Calcium (Lipitor) 5 mg QHS PO 03/19/21 21:00 03/28/21 19:58 Non-Formulary Medication (Pravastatin Sodium ) 20 mg DAILY PO 03/20/21 09:00 UNV Non-Formulary Medication (Tiotropium [place] (Spiriva)) 1 cap BID IH 03/19/21 21:00 UNV Non-Formulary Medication (Venlafaxine Hcl (Venlafaxine Hcl Er)) 37.5 mg DAILY PO 03/20/21 09:00 03/19/21 19:11 DC Venlafaxine HCl (Effexor Xr) 75 mg DAILY PO 03/20/21 09:00 03/22/21 17:33 DC 03/22/21 08:34 Albuterol/ Ipratropium (Duoneb) 3 ml RTQID NEB 03/19/21 20:00 03/20/21 07:59 DC Budesonide (Pulmicort) 0.5 mg RTBID NEB 03/19/21 20:00 03/21/21 08:08 DC Albuterol Sulfate (Ventolin) 2.5 mg PRN Q6HRS PRN NEB SHORTNESS OF BREATH 03/19/21 19:30 Cancel Albuterol/ Ipratropium (Combivent Respimat 20-100 Mcg) 1 puff RTQID INH 03/20/21 12:00 03/24/21 16:01 Fluticasone Furoate (ARNUITY 100mcg ELLIPTA) 1 puff DAILY INH 03/20/21 09:00 Albuterol Sulfate (Ventolin Hfa Inhaler) 1 puff PRN Q6HRS PRN INH SHORTNESS OF BREATH 03/20/21 09:00 Divalproex Sodium (Depakote Er) 1,000 mg QHS PO 03/21/21 21:00 03/22/21 21:48 DC Olanzapine (ZyPREXA ZYDIS) 2.5 mg PRN Q2HRS PRN PO PSYCHOSIS 03/21/21 16:30 Divalproex Sodium (Depakote Er) 250 mg QHS PO 03/21/21 21:00 03/22/21 21:48 DC Venlafaxine HCl (Effexor) 75 mg DAILY PO 03/23/21 09:00 03/30/21 09:00 Divalproex Sodium (Depakote Sprinkles) 1,250 mg HS PO 03/22/21 22:00 03/23/21 16:47 DC 03/22/21 22:00 Olanzapine (ZyPREXA) 10 mg DAILY PO 03/24/21 09:00 03/26/21 10:18 DC 03/25/21 08:11 Divalproex Sodium (Depakote Sprinkles) 500 mg DAILY PO 03/24/21 09:00 03/28/21 14:38 DC 03/28/21 08:00 Divalproex Sodium (Depakote Sprinkles) 750 mg HS PO 03/24/21 21:00 03/28/21 14:38 DC 03/27/21 20:38 Divalproex Sodium (Depakote Sprinkles) 1,250 mg HS PO 03/23/21 21:00 03/23/21 21:01 DC 03/23/21 20:10 Olanzapine (ZyPREXA) 10 mg BID PO 03/26/21 21:00 03/28/21 14:38 DC 03/28/21 07:57 Valproic Acid (Depakene) 500 mg DAILY PO 03/29/21 09:00 03/30/21 09:00 Valproic Acid (Depakene) 750 mg QHS PO 03/28/21 21:00 03/28/21 19:57 Risperidone (RisperDAL) 2 mg DAILY SL 03/29/21 09:00 03/30/21 09:00 Olanzapine (ZyPREXA ZYDIS) 10 mg BID PO 03/28/21 21:00 03/30/21 09:00 I have reviewed the current psychotropics carefully including drug interactions. Risk benefit ratio favors no change other than as noted in my dictated progress note. Diagnosis: Problems: (1) Schizoaffective disorder, bipolar type (2) Mild cognitive impairment (3) Bipolar disorder, current episode mixed, severe, with psychotic features (4) Impulse disorder, unspecified (5) Anxiety disorder, unspecified RHETT MATHEW MD Mar 31, 2021 08:22
[2021-03-31] MEDS: amLODIPine BESYLATE 5 MG TABLET PO SCH (08:23)
[2021-03-31] MEDS: risperiDONE ORAL 1 MG/ML 30ml BOTTLE. SL SCH (08:25)
[2021-03-31] MEDS: FLUTICASONE FUROATE 100mcg/INH ELLIPTA INHALER. INH SCH (09:00)
--- NOTE | 2021-03-31 15:35 | NUR ---
ANITA completed the concurrent review for pt with Beth. ANITA is awaiting to hear back results pending review with the Beth supervisor assembly stock.
[2021-03-31 15:57] VITALS: BP 135/68
--- NOTE | 2021-03-31 16:05 | NUR ---
Nurse note Patient alert confused. Patient took only certain medications the rest was crushed in put in ensure. Ambulates in hallway , room and day room. Patient when talking speaks loudly at times to make needs known to staff. Patient received pain relief cream to left kneee per patient request. reassessed patient and knee feels better. Patient refused both inhalers this am and afternoon.
[2021-03-31] MEDS: LATANOPROST 0.005% OPHTH SOLUTION 2.5ML BOTTLE. OU SCH (20:49)
[2021-03-31] MEDS: ATORVASTATIN CALCIUM 10 MG TABLET. PO SCH ×2 (20:50→21:00)
[2021-03-31] MEDS: MELATONIN 3 MG TABLET PO SCH ×2 (20:50→21:00)
[2021-03-31] MEDS: MIRTAZAPINE 30 MG TABLET PO SCH ×2 (20:51→21:00)
--- NOTE | 2021-03-31 22:16 | PDOC ---
Exam Note: Jose Note: Please also refer to the separate dictated note~for this date of service dictated separately.~Patient seen individually. Discussed the patient with Nursing staff reviewed the chart.~Reviewed interim history and current functioning. Reviewed vital signs,~Labs/ Radiology~and current medications noted below. Continue current treatment with the changes noted in the dictated addendum note Assessment: Vital Signs/I&O: Vital Signs Date Time Temp Pulse Resp B/P (MAP) Pulse Ox O2 Delivery O2 Flow Rate FiO2 03/31/21 15:57 97.6 111 24 135/68 (90) 92 03/31/21 06:36 Nasal Cannula 2.5 I & O 03/30/21 03/30/21 03/31/21 15:00 23:00 07:00 Intake Total 120 ml 360 ml Balance 120 ml 360 ml Labs: Laboratory Tests Test 03/31/21 07:26 Glucose (Fingerstick) 190 mg/dL (70-99) H Current Medications: Meds: Laboratory Tests Test 03/31/21 07:26 Glucose (Fingerstick) 190 mg/dL Current Medications Medications (Trade) Dose Ordered Sig/Denise Route PRN Reason Start Time Stop Time Status Last Admin Dose Admin Acetaminophen (Tylenol) 650 mg PRN Q6HRS PRN PO MILD PAIN / TEMP > 100.3'F 03/19/21 17:00 03/31/21 02:03 Multi-Ingredient Ointment (Analgesic [place]) 1 uzair PRN QID PRN TP MUSCLE PAIN 03/19/21 17:00 03/19/21 19:27 DC Al Hydroxide/Mg Hydroxide (Mylanta Plus Xs) 15 ml PRN AFTMEALHC PRN PO DYSPEPSIA 03/19/21 17:00 03/19/21 19:26 DC Magnesium Hydroxide (Milk Of Magnesia) 2,400 mg PRN QHS PRN PO CONSTIPATION 03/19/21 17:00 03/19/21 19:14 DC Acetaminophen (Tylenol) 650 mg PRN Q6HRS PRN PO PAIN/FEVER 03/19/21 18:15 Cancel Amlodipine Besylate (Norvasc) 5 mg DAILY PO 03/20/21 09:00 03/31/21 08:23 Aspirin (Aspirin Chewable) 81 mg DAILY PO 03/20/21 09:00 03/31/21 08:22 Divalproex Sodium (Depakote Sprinkles) 500 mg DAILY PO 03/20/21 09:00 03/21/21 16:33 DC 03/20/21 09:34 Latanoprost (Xalatan) 1 drop QHS OU 03/19/21 21:00 Lisinopril (Prinivil) 10 mg DAILY PO 03/20/21 09:00 03/19/21 19:19 DC Al Hydroxide/Mg Hydroxide (Mylanta Plus Xs) 15 ml PRN AFTMEALHC PRN PO HEARTBURN / GAS 03/19/21 18:15 Melatonin (Melatonin) 3 mg QHS PO 03/19/21 21:00 03/31/21 20:50 Mirtazapine (Remeron) 7.5 mg HS PO 03/19/21 21:00 03/19/21 22:33 DC Mirtazapine (Remeron) 30 mg QHS PO 03/19/21 21:00 03/31/21 20:51 Nicotine (Nicoderm Cq 14mg Patch) 1 patch DAILY TD 03/19/21 18:30 03/22/21 17:55 DC Olanzapine (ZyPREXA) 5 mg DAILY PO 03/20/21 09:00 03/23/21 16:47 DC 03/23/21 09:00 Olanzapine (ZyPREXA) 10 mg QHS PO 03/19/21 21:00 03/26/21 10:19 DC 03/25/21 20:11 Risperidone (RisperDAL) 2 mg DAILY PO 03/20/21 09:00 03/28/21 14:38 DC 03/28/21 08:00 Trazodone HCl (Desyrel) 50 mg PRN QHS PRN PO INSOMNIA 03/19/21 18:15 03/19/21 22:10 Non-Formulary Medication (Albuterol Sulfate (Proair Respiclick)) 1 puff Q6HRS PRN INH SHORTNESS OF BREATH 03/19/21 18:15 UNV Lisinopril (Prinivil) 5 mg DAILY PO 03/20/21 09:00 03/31/21 08:21 Non-Formulary Medication (Budesonide/ Formoterol Fumarate (Symbicort 160-4.5 Mcg Inhaler)) 2 puff BID IH 03/19/21 21:00 UNV Divalproex Sodium (Depakote Sprinkles) 500 mg HS PO 03/19/21 21:00 03/21/21 16:33 DC 03/20/21 20:49 Docusate Sodium (Colace) 100 mg BID PO 03/19/21 21:00 03/26/21 10:32 DC 03/25/21 20:12 Non-Formulary Medication (Latanoprost/Pf (Latanoprost 0.005% Eye Drop)) 1 drop QHS OU 03/19/21 21:00 UNV Magnesium Hydroxide (Milk Of Magnesia) 2,400 mg PRN DAILY PRN PO CONSTIPATION 03/19/21 19:15 03/29/21 13:23 Metformin HCl (Glucophage) 1,000 mg DAILYWBKFT PO 03/20/21 08:00 03/31/21 08:21 Multi-Ingredient Ointment (Analgesic [place]) 1 uzair PRN Q6HRS PRN TP MUSCLE PAIN 03/19/21 19:15 Atorvastatin Calcium (Lipitor) 5 mg QHS PO 03/19/21 21:00 03/31/21 20:50 Non-Formulary Medication (Pravastatin Sodium ) 20 mg DAILY PO 03/20/21 09:00 UNV Non-Formulary Medication (Tiotropium [place] (Spiriva)) 1 cap BID IH 03/19/21 21:00 UNV Non-Formulary Medication (Venlafaxine Hcl (Venlafaxine Hcl Er)) 37.5 mg DAILY PO 03/20/21 09:00 03/19/21 19:11 DC Venlafaxine HCl (Effexor Xr) 75 mg DAILY PO 03/20/21 09:00 03/22/21 17:33 DC 03/22/21 08:34 Albuterol/ Ipratropium (Duoneb) 3 ml RTQID NEB 03/19/21 20:00 03/20/21 07:59 DC Budesonide (Pulmicort) 0.5 mg RTBID NEB 03/19/21 20:00 03/21/21 08:08 DC Albuterol Sulfate (Ventolin) 2.5 mg PRN Q6HRS PRN NEB SHORTNESS OF BREATH 03/19/21 19:30 Cancel Albuterol/ Ipratropium (Combivent Respimat 20-100 Mcg) 1 puff RTQID INH 03/20/21 12:00 03/24/21 16:01 Fluticasone Furoate (ARNUITY 100mcg ELLIPTA) 1 puff DAILY INH 03/20/21 09:00 Albuterol Sulfate (Ventolin Hfa Inhaler) 1 puff PRN Q6HRS PRN INH SHORTNESS OF BREATH 03/20/21 09:00 Divalproex Sodium (Depakote Er) 1,000 mg QHS PO 03/21/21 21:00 03/22/21 21:48 DC Olanzapine (ZyPREXA ZYDIS) 2.5 mg PRN Q2HRS PRN PO PSYCHOSIS 03/21/21 16:30 Divalproex Sodium (Depakote Er) 250 mg QHS PO 03/21/21 21:00 03/22/21 21:48 DC Venlafaxine HCl (Effexor) 75 mg DAILY PO 03/23/21 09:00 03/31/21 08:21 Divalproex Sodium (Depakote Sprinkles) 1,250 mg HS PO 03/22/21 22:00 03/23/21 16:47 DC 03/22/21 22:00 Olanzapine (ZyPREXA) 10 mg DAILY PO 03/24/21 09:00 03/26/21 10:18 DC 03/25/21 08:11 Divalproex Sodium (Depakote Sprinkles) 500 mg DAILY PO 03/24/21 09:00 03/28/21 14:38 DC 03/28/21 08:00 Divalproex Sodium (Depakote Sprinkles) 750 mg HS PO 03/24/21 21:00 03/28/21 14:38 DC 03/27/21 20:38 Divalproex Sodium (Depakote Sprinkles) 1,250 mg HS PO 03/23/21 21:00 03/23/21 21:01 DC 03/23/21 20:10 Olanzapine (ZyPREXA) 10 mg BID PO 03/26/21 21:00 03/28/21 14:38 DC 03/28/21 07:57 Valproic Acid (Depakene) 500 mg DAILY PO 03/29/21 09:00 03/31/21 08:20 Valproic Acid (Depakene) 750 mg QHS PO 03/28/21 21:00 03/31/21 20:50 Risperidone (RisperDAL) 2 mg DAILY SL 03/29/21 09:00 03/31/21 08:25 Olanzapine (ZyPREXA ZYDIS) 10 mg BID PO 03/28/21 21:00 03/31/21 20:51 I have reviewed the current psychotropics carefully including drug interactions. Risk benefit ratio favors no change other than as noted in my dictated progress note. Diagnosis: Problems: (1) Schizoaffective disorder, bipolar type (2) Bipolar disorder, current episode mixed, severe, with psychotic features (3) Anxiety disorder, unspecified (4) Impulse disorder, unspecified RHETT MATHEW MD Mar 31, 2021 22:16
--- NOTE | 2021-03-31 23:13 | NUR ---
Patient is located in her room on assumption of care, awake in her bed. She is irritable, snarky, sarcastic. She refused assessments and medications. Meds were crushed and hidden in a chocolate ensure, which patient had asked for. She did not consume any of it. She appears to be sleeping at present time. Will continue to monitor.
[2021-04-01 06:31] VITALS: BP 133/69
[2021-04-01] MEDS: LISINOPRIL 5 MG TABLET. PO SCH (08:26)
[2021-04-01] MEDS: ASPIRIN CHEWABLE 81 MG TABLET. PO SCH (08:26)
[2021-04-01] MEDS: amLODIPine BESYLATE 5 MG TABLET PO SCH (08:27)
[2021-04-01] MEDS: metFORMIN 500 MG TABLET PO SCH (08:28)
[2021-04-01] MEDS: VALPROATE ACID 250 MG/5 ML ORAL SOLUTION PO SCH ×2 (08:28→21:00)
[2021-04-01] MEDS: VENLAFAXINE 75 MG TABLET. PO SCH (08:28)
[2021-04-01] MEDS: risperiDONE ORAL 1 MG/ML 30ml BOTTLE. SL SCH (08:29)
[2021-04-01] MEDS: IPRATROPIUM/ALBUTEROL 20/100mcg/INH INHALER. INH SCH ×4 (08:29→20:00)
[2021-04-01] MEDS: FLUTICASONE FUROATE 100mcg/INH ELLIPTA INHALER. INH SCH (08:48)
--- NOTE | 2021-04-01 14:51 | NUR ---
Nurse Note Patient in room on assumption of care. Patient is irritable, sarcastic, refuses to take medication. Medication has been offered whole and explain what each medication is for to help her. Patient refuses crushed medication in Ensure.Patient refused all inhalers. Pulse ox at 94% room air. Patient in dining room for meals but consumption is fair.Patient would rather have ensure.
[2021-04-01 16:14] VITALS: BP 132/70
[2021-04-01] MEDS: ATORVASTATIN CALCIUM 10 MG TABLET. PO SCH (21:00)
[2021-04-01] MEDS: MELATONIN 3 MG TABLET PO SCH (21:00)
[2021-04-01] MEDS: MIRTAZAPINE 30 MG TABLET PO SCH (21:00)
[2021-04-01] MEDS: LATANOPROST 0.005% OPHTH SOLUTION 2.5ML BOTTLE. OU SCH (21:00)
--- NOTE | 2021-04-01 22:10 | PDOC ---
Exam Note: Jose Note: Please also refer to the separate dictated note~for this date of service dictated separately.~Patient seen individually. Discussed the patient with Nursing staff reviewed the chart.~Reviewed interim history and current functioning. Reviewed vital signs,~Labs/ Radiology~and current medications noted below. Continue current treatment with the changes noted in the dictated addendum note Assessment: Vital Signs/I&O: Vital Signs Date Time Temp Pulse Resp B/P (MAP) Pulse Ox O2 Delivery O2 Flow Rate FiO2 04/01/21 16:14 98.4 97 20 132/70 (90) 91 Nasal Cannula 3.0 I & O 03/31/21 03/31/21 04/01/21 15:00 23:00 07:00 Intake Total 600 ml 320 ml Balance 600 ml 320 ml Labs: Laboratory Tests Test 04/01/21 07:31 Glucose (Fingerstick) 165 mg/dL (70-99) H Current Medications: Meds: Laboratory Tests Test 04/01/21 07:31 Glucose (Fingerstick) 165 mg/dL Current Medications Medications (Trade) Dose Ordered Sig/Denise Route PRN Reason Start Time Stop Time Status Last Admin Dose Admin Acetaminophen (Tylenol) 650 mg PRN Q6HRS PRN PO MILD PAIN / TEMP > 100.3'F 03/19/21 17:00 03/31/21 02:03 Multi-Ingredient Ointment (Analgesic [place]) 1 uzair PRN QID PRN TP MUSCLE PAIN 03/19/21 17:00 03/19/21 19:27 DC Al Hydroxide/Mg Hydroxide (Mylanta Plus Xs) 15 ml PRN AFTMEALHC PRN PO DYSPEPSIA 03/19/21 17:00 03/19/21 19:26 DC Magnesium Hydroxide (Milk Of Magnesia) 2,400 mg PRN QHS PRN PO CONSTIPATION 03/19/21 17:00 03/19/21 19:14 DC Acetaminophen (Tylenol) 650 mg PRN Q6HRS PRN PO PAIN/FEVER 03/19/21 18:15 Cancel Amlodipine Besylate (Norvasc) 5 mg DAILY PO 03/20/21 09:00 04/01/21 08:27 Aspirin (Aspirin Chewable) 81 mg DAILY PO 03/20/21 09:00 04/01/21 08:26 Divalproex Sodium (Depakote Sprinkles) 500 mg DAILY PO 03/20/21 09:00 03/21/21 16:33 DC 03/20/21 09:34 Latanoprost (Xalatan) 1 drop QHS OU 03/19/21 21:00 Lisinopril (Prinivil) 10 mg DAILY PO 03/20/21 09:00 03/19/21 19:19 DC Al Hydroxide/Mg Hydroxide (Mylanta Plus Xs) 15 ml PRN AFTMEALHC PRN PO HEARTBURN / GAS 03/19/21 18:15 Melatonin (Melatonin) 3 mg QHS PO 03/19/21 21:00 03/28/21 19:58 Mirtazapine (Remeron) 7.5 mg HS PO 03/19/21 21:00 03/19/21 22:33 DC Mirtazapine (Remeron) 30 mg QHS PO 03/19/21 21:00 03/28/21 19:58 Nicotine (Nicoderm Cq 14mg Patch) 1 patch DAILY TD 03/19/21 18:30 03/22/21 17:55 DC Olanzapine (ZyPREXA) 5 mg DAILY PO 03/20/21 09:00 03/23/21 16:47 DC 03/23/21 09:00 Olanzapine (ZyPREXA) 10 mg QHS PO 03/19/21 21:00 03/26/21 10:19 DC 03/25/21 20:11 Risperidone (RisperDAL) 2 mg DAILY PO 03/20/21 09:00 03/28/21 14:38 DC 03/28/21 08:00 Trazodone HCl (Desyrel) 50 mg PRN QHS PRN PO INSOMNIA 03/19/21 18:15 03/19/21 22:10 Non-Formulary Medication (Albuterol Sulfate (Proair Respiclick)) 1 puff Q6HRS PRN INH SHORTNESS OF BREATH 03/19/21 18:15 UNV Lisinopril (Prinivil) 5 mg DAILY PO 03/20/21 09:00 04/01/21 08:26 Non-Formulary Medication (Budesonide/ Formoterol Fumarate (Symbicort 160-4.5 Mcg Inhaler)) 2 puff BID IH 03/19/21 21:00 UNV Divalproex Sodium (Depakote Sprinkles) 500 mg HS PO 03/19/21 21:00 03/21/21 16:33 DC 03/20/21 20:49 Docusate Sodium (Colace) 100 mg BID PO 03/19/21 21:00 03/26/21 10:32 DC 03/25/21 20:12 Non-Formulary Medication (Latanoprost/Pf (Latanoprost 0.005% Eye Drop)) 1 drop QHS OU 03/19/21 21:00 UNV Magnesium Hydroxide (Milk Of Magnesia) 2,400 mg PRN DAILY PRN PO CONSTIPATION 03/19/21 19:15 03/29/21 13:23 Metformin HCl (Glucophage) 1,000 mg DAILYWBKFT PO 03/20/21 08:00 04/01/21 08:28 Multi-Ingredient Ointment (Analgesic [place]) 1 uzair PRN Q6HRS PRN TP MUSCLE PAIN 03/19/21 19:15 Atorvastatin Calcium (Lipitor) 5 mg QHS PO 03/19/21 21:00 03/28/21 19:58 Non-Formulary Medication (Pravastatin Sodium ) 20 mg DAILY PO 03/20/21 09:00 UNV Non-Formulary Medication (Tiotropium [place] (Spiriva)) 1 cap BID IH 03/19/21 21:00 UNV Non-Formulary Medication (Venlafaxine Hcl (Venlafaxine Hcl Er)) 37.5 mg DAILY PO 03/20/21 09:00 03/19/21 19:11 DC Venlafaxine HCl (Effexor Xr) 75 mg DAILY PO 03/20/21 09:00 03/22/21 17:33 DC 03/22/21 08:34 Albuterol/ Ipratropium (Duoneb) 3 ml RTQID NEB 03/19/21 20:00 03/20/21 07:59 DC Budesonide (Pulmicort) 0.5 mg RTBID NEB 03/19/21 20:00 03/21/21 08:08 DC Albuterol Sulfate (Ventolin) 2.5 mg PRN Q6HRS PRN NEB SHORTNESS OF BREATH 03/19/21 19:30 Cancel Albuterol/ Ipratropium (Combivent Respimat 20-100 Mcg) 1 puff RTQID INH 03/20/21 12:00 04/01/21 12:00 Fluticasone Furoate (ARNUITY 100mcg ELLIPTA) 1 puff DAILY INH 03/20/21 09:00 Albuterol Sulfate (Ventolin Hfa Inhaler) 1 puff PRN Q6HRS PRN INH SHORTNESS OF BREATH 03/20/21 09:00 Divalproex Sodium (Depakote Er) 1,000 mg QHS PO 03/21/21 21:00 03/22/21 21:48 DC Olanzapine (ZyPREXA ZYDIS) 2.5 mg PRN Q2HRS PRN PO PSYCHOSIS 03/21/21 16:30 Divalproex Sodium (Depakote Er) 250 mg QHS PO 03/21/21 21:00 03/22/21 21:48 DC Venlafaxine HCl (Effexor) 75 mg DAILY PO 03/23/21 09:00 04/01/21 08:28 Divalproex Sodium (Depakote Sprinkles) 1,250 mg HS PO 03/22/21 22:00 03/23/21 16:47 DC 03/22/21 22:00 Olanzapine (ZyPREXA) 10 mg DAILY PO 03/24/21 09:00 03/26/21 10:18 DC 03/25/21 08:11 Divalproex Sodium (Depakote Sprinkles) 500 mg DAILY PO 03/24/21 09:00 03/28/21 14:38 DC 03/28/21 08:00 Divalproex Sodium (Depakote Sprinkles) 750 mg HS PO 03/24/21 21:00 03/28/21 14:38 DC 03/27/21 20:38 Divalproex Sodium (Depakote Sprinkles) 1,250 mg HS PO 03/23/21 21:00 03/23/21 21:01 DC 03/23/21 20:10 Olanzapine (ZyPREXA) 10 mg BID PO 03/26/21 21:00 03/28/21 14:38 DC 03/28/21 07:57 Valproic Acid (Depakene) 500 mg DAILY PO 03/29/21 09:00 04/01/21 08:28 Valproic Acid (Depakene) 750 mg QHS PO 03/28/21 21:00 03/28/21 19:57 Risperidone (RisperDAL) 2 mg DAILY SL 03/29/21 09:00 04/01/21 08:29 Olanzapine (ZyPREXA ZYDIS) 10 mg BID PO 03/28/21 21:00 04/01/21 08:29 I have reviewed the current psychotropics carefully including drug interactions. Risk benefit ratio favors no change other than as noted in my dictated progress note. Diagnosis: Problems: (1) Schizoaffective disorder, bipolar type (2) Mild cognitive impairment (3) Anxiety disorder, unspecified (4) Bipolar disorder, current episode mixed, severe, with psychotic features (5) Impulse disorder, unspecified RHETT MATHEW MD Apr 01, 2021 22:10
--- NOTE | 2021-04-02 04:13 | NUR ---
Patient was sleeping at the beginning of shift and did not come out for any snacks or to interact with staff or peers in the TV room. When assessed in her room, patient was awake and walking around but refusing to put on her nasal canula for oxygen. She was visibly gasping for breath and using accessory muscles intermittently to breathe. Patient was educated on the need to keep her oxygen on to reduce her gasping for breathe and feeling dizzy. Patient was still resistant and verbally aggressive towards staff. Nurse recommended that patient be left alone so she does not over exert herself with agitation. Nurse also recommended 15mins to 30mins checks with Oxygen saturation checks every hour. At some point her oxygen saturation was 78% and heart rate 115; the numbers were explained to her and patient was informed that was dangerous and getting lower. Nurse explained to patient that her heart rate will drop and her oxygen saturation will get higher if she keeps the oxygen on, and even promised to stay with her and keep the machine on so patient could observe the numbers change. Patient agreed and her nasal cannula was put back on in her room. Nurse increased the oxygen to 3.5Lpm flow rate, and both patient and nurse observed her oxygen saturation rise gradually to 94% and her heart rate drop to 94. Nurse then explained to patient that she will need to keep the oxygen on to maintain those numbers. Patient stated "I do not need oxygen, but i am feeling better so i will keep it on!" Patient remained in her room where she alternated between bed and chair for the rest of the night. Will continue to monitor.
[2021-04-02 05:34] VITALS: BP 123/58
[2021-04-02] MEDS: IPRATROPIUM/ALBUTEROL 20/100mcg/INH INHALER. INH SCH ×4 (08:00→20:00)
[2021-04-02] MEDS: LISINOPRIL 5 MG TABLET. PO SCH (08:34)
[2021-04-02] MEDS: metFORMIN 500 MG TABLET PO SCH (08:34)
[2021-04-02] MEDS: VENLAFAXINE 75 MG TABLET. PO SCH (08:34)
[2021-04-02] MEDS: FLUTICASONE FUROATE 100mcg/INH ELLIPTA INHALER. INH SCH (08:51)
[2021-04-02] MEDS: ASPIRIN CHEWABLE 81 MG TABLET. PO SCH (08:51)
[2021-04-02] MEDS: amLODIPine BESYLATE 5 MG TABLET PO SCH (08:52)
[2021-04-02] MEDS: VALPROATE ACID 250 MG/5 ML ORAL SOLUTION PO SCH ×2 (08:52→21:00)
[2021-04-02] MEDS: risperiDONE ORAL 1 MG/ML 30ml BOTTLE. SL SCH (08:55)
--- NOTE | 2021-04-02 11:01 | NUR ---
Nurse Note Patient in dining room for meal this am, Patient continues to refuse Psych medication and will only take Metformin and BP medication. Patient was educated on medication risk of not taking medication by shift mechanic and day shift nurse. Patient continues to show signs of confusion and verbally aggressive towards staff. . Patient confused yell at nurse. Told nurse to go away.
[2021-04-02 16:24] VITALS: BP 143/61
[2021-04-02] MEDS: MELATONIN 3 MG TABLET PO SCH (21:00)
[2021-04-02] MEDS: ATORVASTATIN CALCIUM 10 MG TABLET. PO SCH (21:00)
[2021-04-02] MEDS: LATANOPROST 0.005% OPHTH SOLUTION 2.5ML BOTTLE. OU SCH (21:00)
[2021-04-02] MEDS: MIRTAZAPINE 30 MG TABLET PO SCH (21:00)
--- NOTE | 2021-04-02 21:54 | PDOC ---
Exam Note: Jose Note: This note is a late entry for 03/31/2021 covers elements not covered in my initial note. Subjective: The patient was seen individually in the evening of 03/31/2021 with Magalis CEBALLOS, discussed and reviewed the chart. The patient slept 6-1/2 hours previous night. I met with her at length in her room. The patient has been non-compliant with her medications. Initially when I went to visit, she was in the restroom. She is quite hyperverbal and paranoid about her psychotropics which we discussed at some length. She is wanting to be discharged to be back home and we discussed the need for a higher level of care at this stage. Review of Systems: She had oxygen in place and some tiredness. Ambulation impaired. No CV, , eye system symptoms on review. Mental Status Exam: The patient is alert, oriented and cooperative. She remains somewhat hyperverbal, little paranoid about staff mixing her medications in her oral intake. Speech coherent. Often responses monosyllabic. Abstraction fair. Computation impaired. Language function intact. Mood and affect withdrawn. No active suicidal or homicidal ideation. Laboratory Data: Reviewed. Impression: Schizoaffective disorder, bipolar type mixed with psychotic features. Anxiety disorder unspecified. Impulse control disorder unspecified. Plan: No change from initial note. Assessment: Vital Signs/I&O: Vital Signs Date Time Temp Pulse Resp B/P (MAP) Pulse Ox O2 Delivery O2 Flow Rate FiO2 04/02/21 16:24 97.2 111 26 143/61 (88) 90 04/02/21 05:34 refusing to wear oxygen via NC 04/01/21 16:14 3.0 I & O 04/01/21 04/01/21 04/02/21 14:59 22:59 06:59 Intake Total 600 ml 0 ml 120 ml Balance 600 ml 0 ml 120 ml Labs: Laboratory Tests Test 04/02/21 08:02 04/02/21 09:05 Glucose (Fingerstick) 132 mg/dL (70-99) H SARS-CoV-2 (PCR) Negative (NEGATIVE) Current Medications: Meds: Laboratory Tests Test 04/02/21 08:02 04/02/21 09:05 Glucose (Fingerstick) 132 mg/dL Coronavirus (COVID-19)(PCR) Negative Current Medications Medications (Trade) Dose Ordered Sig/Denise Route PRN Reason Start Time Stop Time Status Last Admin Dose Admin Acetaminophen (Tylenol) 650 mg PRN Q6HRS PRN PO MILD PAIN / TEMP > 100.3'F 03/19/21 17:00 03/31/21 02:03 Multi-Ingredient Ointment (Analgesic [place]) 1 uzair PRN QID PRN TP MUSCLE PAIN 03/19/21 17:00 03/19/21 19:27 DC Al Hydroxide/Mg Hydroxide (Mylanta Plus Xs) 15 ml PRN AFTMEALHC PRN PO DYSPEPSIA 03/19/21 17:00 03/19/21 19:26 DC Magnesium Hydroxide (Milk Of Magnesia) 2,400 mg PRN QHS PRN PO CONSTIPATION 03/19/21 17:00 03/19/21 19:14 DC Acetaminophen (Tylenol) 650 mg PRN Q6HRS PRN PO PAIN/FEVER 03/19/21 18:15 Cancel Amlodipine Besylate (Norvasc) 5 mg DAILY PO 03/20/21 09:00 04/01/21 08:27 Aspirin (Aspirin Chewable) 81 mg DAILY PO 03/20/21 09:00 04/01/21 08:26 Divalproex Sodium (Depakote Sprinkles) 500 mg DAILY PO 03/20/21 09:00 03/21/21 16:33 DC 03/20/21 09:34 Latanoprost (Xalatan) 1 drop QHS OU 03/19/21 21:00 Lisinopril (Prinivil) 10 mg DAILY PO 03/20/21 09:00 03/19/21 19:19 DC Al Hydroxide/Mg Hydroxide (Mylanta Plus Xs) 15 ml PRN AFTMEALHC PRN PO HEARTBURN / GAS 03/19/21 18:15 Melatonin (Melatonin) 3 mg QHS PO 03/19/21 21:00 03/28/21 19:58 Mirtazapine (Remeron) 7.5 mg HS PO 03/19/21 21:00 03/19/21 22:33 DC Mirtazapine (Remeron) 30 mg QHS PO 03/19/21 21:00 03/28/21 19:58 Nicotine (Nicoderm Cq 14mg Patch) 1 patch DAILY TD 03/19/21 18:30 03/22/21 17:55 DC Olanzapine (ZyPREXA) 5 mg DAILY PO 03/20/21 09:00 03/23/21 16:47 DC 03/23/21 09:00 Olanzapine (ZyPREXA) 10 mg QHS PO 03/19/21 21:00 03/26/21 10:19 DC 03/25/21 20:11 Risperidone (RisperDAL) 2 mg DAILY PO 03/20/21 09:00 03/28/21 14:38 DC 03/28/21 08:00 Trazodone HCl (Desyrel) 50 mg PRN QHS PRN PO INSOMNIA 03/19/21 18:15 03/19/21 22:10 Non-Formulary Medication (Albuterol Sulfate (Proair Respiclick)) 1 puff Q6HRS PRN INH SHORTNESS OF BREATH 03/19/21 18:15 UNV Lisinopril (Prinivil) 5 mg DAILY PO 03/20/21 09:00 04/02/21 08:34 Non-Formulary Medication (Budesonide/ Formoterol Fumarate (Symbicort 160-4.5 Mcg Inhaler)) 2 puff BID IH 03/19/21 21:00 UNV Divalproex Sodium (Depakote Sprinkles) 500 mg HS PO 03/19/21 21:00 03/21/21 16:33 DC 03/20/21 20:49 Docusate Sodium (Colace) 100 mg BID PO 03/19/21 21:00 03/26/21 10:32 DC 03/25/21 20:12 Non-Formulary Medication (Latanoprost/Pf (Latanoprost 0.005% Eye Drop)) 1 drop QHS OU 03/19/21 21:00 UNV Magnesium Hydroxide (Milk Of Magnesia) 2,400 mg PRN DAILY PRN PO CONSTIPATION 03/19/21 19:15 03/29/21 13:23 Metformin HCl (Glucophage) 1,000 mg DAILYWBKFT PO 03/20/21 08:00 04/02/21 08:34 Multi-Ingredient Ointment (Analgesic [place]) 1 uzair PRN Q6HRS PRN TP MUSCLE PAIN 03/19/21 19:15 Atorvastatin Calcium (Lipitor) 5 mg QHS PO 03/19/21 21:00 03/28/21 19:58 Non-Formulary Medication (Pravastatin Sodium ) 20 mg DAILY PO 03/20/21 09:00 UNV Non-Formulary Medication (Tiotropium [place] (Spiriva)) 1 cap BID IH 03/19/21 21:00 UNV Non-Formulary Medication (Venlafaxine Hcl (Venlafaxine Hcl Er)) 37.5 mg DAILY PO 03/20/21 09:00 03/19/21 19:11 DC Venlafaxine HCl (Effexor Xr) 75 mg DAILY PO 03/20/21 09:00 03/22/21 17:33 DC 03/22/21 08:34 Albuterol/ Ipratropium (Duoneb) 3 ml RTQID NEB 03/19/21 20:00 03/20/21 07:59 DC Budesonide (Pulmicort) 0.5 mg RTBID NEB 03/19/21 20:00 03/21/21 08:08 DC Albuterol Sulfate (Ventolin) 2.5 mg PRN Q6HRS PRN NEB SHORTNESS OF BREATH 03/19/21 19:30 Cancel Albuterol/ Ipratropium (Combivent Respimat 20-100 Mcg) 1 puff RTQID INH 03/20/21 12:00 04/01/21 12:00 Fluticasone Furoate (ARNUITY 100mcg ELLIPTA) 1 puff DAILY INH 03/20/21 09:00 Albuterol Sulfate (Ventolin Hfa Inhaler) 1 puff PRN Q6HRS PRN INH SHORTNESS OF BREATH 03/20/21 09:00 Divalproex Sodium (Depakote Er) 1,000 mg QHS PO 03/21/21 21:00 03/22/21 21:48 DC Olanzapine (ZyPREXA ZYDIS) 2.5 mg PRN Q2HRS PRN PO PSYCHOSIS 03/21/21 16:30 Divalproex Sodium (Depakote Er) 250 mg QHS PO 03/21/21 21:00 03/22/21 21:48 DC Venlafaxine HCl (Effexor) 75 mg DAILY PO 03/23/21 09:00 04/02/21 08:34 Divalproex Sodium (Depakote Sprinkles) 1,250 mg HS PO 03/22/21 22:00 03/23/21 16:47 DC 03/22/21 22:00 Olanzapine (ZyPREXA) 10 mg DAILY PO 03/24/21 09:00 03/26/21 10:18 DC 03/25/21 08:11 Divalproex Sodium (Depakote Sprinkles) 500 mg DAILY PO 03/24/21 09:00 03/28/21 14:38 DC 03/28/21 08:00 Divalproex Sodium (Depakote Sprinkles) 750 mg HS PO 03/24/21 21:00 03/28/21 14:38 DC 03/27/21 20:38 Divalproex Sodium (Depakote Sprinkles) 1,250 mg HS PO 03/23/21 21:00 03/23/21 21:01 DC 03/23/21 20:10 Olanzapine (ZyPREXA) 10 mg BID PO 03/26/21 21:00 03/28/21 14:38 DC 03/28/21 07:57 Valproic Acid (Depakene) 500 mg DAILY PO 03/29/21 09:00 04/01/21 08:28 Valproic Acid (Depakene) 750 mg QHS PO 03/28/21 21:00 03/28/21 19:57 Risperidone (RisperDAL) 2 mg DAILY SL 03/29/21 09:00 04/01/21 08:29 Olanzapine (ZyPREXA ZYDIS) 10 mg BID PO 03/28/21 21:00 04/01/21 08:29 I have reviewed the current psychotropics carefully including drug interactions. Risk benefit ratio favors no change other than as noted in my dictated progress note. Diagnosis: Problems: (1) Mild cognitive impairment (2) Anxiety disorder, unspecified (3) Bipolar disorder, current episode mixed, severe, with psychotic features (4) Impulse disorder, unspecified (5) Schizoaffective disorder, bipolar type RHETT MATHEW MD Apr 02, 2021 21:54
--- NOTE | 2021-04-02 22:10 | PDOC ---
Exam Note: Jose Note: Please also refer to the separate dictated note~for this date of service dictated separately.~Patient seen individually. Discussed the patient with Nursing staff reviewed the chart.~Reviewed interim history and current functioning. Reviewed vital signs,~Labs/ Radiology~and current medications noted below. Continue current treatment with the changes noted in the dictated addendum note Assessment: Vital Signs/I&O: Vital Signs Date Time Temp Pulse Resp B/P (MAP) Pulse Ox O2 Delivery O2 Flow Rate FiO2 04/02/21 16:24 97.2 111 26 143/61 (88) 90 04/02/21 05:34 refusing to wear oxygen via NC 04/01/21 16:14 3.0 I & O 04/01/21 04/01/21 04/02/21 15:00 23:00 07:00 Intake Total 600 ml 0 ml 120 ml Balance 600 ml 0 ml 120 ml Labs: Laboratory Tests Test 04/02/21 08:02 04/02/21 09:05 Glucose (Fingerstick) 132 mg/dL (70-99) H SARS-CoV-2 (PCR) Negative (NEGATIVE) Current Medications: Meds: Laboratory Tests Test 04/02/21 08:02 04/02/21 09:05 Glucose (Fingerstick) 132 mg/dL Coronavirus (COVID-19)(PCR) Negative Current Medications Medications (Trade) Dose Ordered Sig/Denise Route PRN Reason Start Time Stop Time Status Last Admin Dose Admin Acetaminophen (Tylenol) 650 mg PRN Q6HRS PRN PO MILD PAIN / TEMP > 100.3'F 03/19/21 17:00 03/31/21 02:03 Multi-Ingredient Ointment (Analgesic [place]) 1 uzair PRN QID PRN TP MUSCLE PAIN 03/19/21 17:00 03/19/21 19:27 DC Al Hydroxide/Mg Hydroxide (Mylanta Plus Xs) 15 ml PRN AFTMEALHC PRN PO DYSPEPSIA 03/19/21 17:00 03/19/21 19:26 DC Magnesium Hydroxide (Milk Of Magnesia) 2,400 mg PRN QHS PRN PO CONSTIPATION 03/19/21 17:00 03/19/21 19:14 DC Acetaminophen (Tylenol) 650 mg PRN Q6HRS PRN PO PAIN/FEVER 03/19/21 18:15 Cancel Amlodipine Besylate (Norvasc) 5 mg DAILY PO 03/20/21 09:00 04/01/21 08:27 Aspirin (Aspirin Chewable) 81 mg DAILY PO 03/20/21 09:00 04/01/21 08:26 Divalproex Sodium (Depakote Sprinkles) 500 mg DAILY PO 03/20/21 09:00 03/21/21 16:33 DC 03/20/21 09:34 Latanoprost (Xalatan) 1 drop QHS OU 03/19/21 21:00 Lisinopril (Prinivil) 10 mg DAILY PO 03/20/21 09:00 03/19/21 19:19 DC Al Hydroxide/Mg Hydroxide (Mylanta Plus Xs) 15 ml PRN AFTMEALHC PRN PO HEARTBURN / GAS 03/19/21 18:15 Melatonin (Melatonin) 3 mg QHS PO 03/19/21 21:00 03/28/21 19:58 Mirtazapine (Remeron) 7.5 mg HS PO 03/19/21 21:00 03/19/21 22:33 DC Mirtazapine (Remeron) 30 mg QHS PO 03/19/21 21:00 03/28/21 19:58 Nicotine (Nicoderm Cq 14mg Patch) 1 patch DAILY TD 03/19/21 18:30 03/22/21 17:55 DC Olanzapine (ZyPREXA) 5 mg DAILY PO 03/20/21 09:00 03/23/21 16:47 DC 03/23/21 09:00 Olanzapine (ZyPREXA) 10 mg QHS PO 03/19/21 21:00 03/26/21 10:19 DC 03/25/21 20:11 Risperidone (RisperDAL) 2 mg DAILY PO 03/20/21 09:00 03/28/21 14:38 DC 03/28/21 08:00 Trazodone HCl (Desyrel) 50 mg PRN QHS PRN PO INSOMNIA 03/19/21 18:15 03/19/21 22:10 Non-Formulary Medication (Albuterol Sulfate (Proair Respiclick)) 1 puff Q6HRS PRN INH SHORTNESS OF BREATH 03/19/21 18:15 UNV Lisinopril (Prinivil) 5 mg DAILY PO 03/20/21 09:00 04/02/21 08:34 Non-Formulary Medication (Budesonide/ Formoterol Fumarate (Symbicort 160-4.5 Mcg Inhaler)) 2 puff BID IH 03/19/21 21:00 UNV Divalproex Sodium (Depakote Sprinkles) 500 mg HS PO 03/19/21 21:00 03/21/21 16:33 DC 03/20/21 20:49 Docusate Sodium (Colace) 100 mg BID PO 03/19/21 21:00 03/26/21 10:32 DC 03/25/21 20:12 Non-Formulary Medication (Latanoprost/Pf (Latanoprost 0.005% Eye Drop)) 1 drop QHS OU 03/19/21 21:00 UNV Magnesium Hydroxide (Milk Of Magnesia) 2,400 mg PRN DAILY PRN PO CONSTIPATION 03/19/21 19:15 03/29/21 13:23 Metformin HCl (Glucophage) 1,000 mg DAILYWBKFT PO 03/20/21 08:00 04/02/21 08:34 Multi-Ingredient Ointment (Analgesic [place]) 1 uzair PRN Q6HRS PRN TP MUSCLE PAIN 03/19/21 19:15 Atorvastatin Calcium (Lipitor) 5 mg QHS PO 03/19/21 21:00 03/28/21 19:58 Non-Formulary Medication (Pravastatin Sodium ) 20 mg DAILY PO 03/20/21 09:00 UNV Non-Formulary Medication (Tiotropium [place] (Spiriva)) 1 cap BID IH 03/19/21 21:00 UNV Non-Formulary Medication (Venlafaxine Hcl (Venlafaxine Hcl Er)) 37.5 mg DAILY PO 03/20/21 09:00 03/19/21 19:11 DC Venlafaxine HCl (Effexor Xr) 75 mg DAILY PO 03/20/21 09:00 03/22/21 17:33 DC 03/22/21 08:34 Albuterol/ Ipratropium (Duoneb) 3 ml RTQID NEB 03/19/21 20:00 03/20/21 07:59 DC Budesonide (Pulmicort) 0.5 mg RTBID NEB 03/19/21 20:00 03/21/21 08:08 DC Albuterol Sulfate (Ventolin) 2.5 mg PRN Q6HRS PRN NEB SHORTNESS OF BREATH 03/19/21 19:30 Cancel Albuterol/ Ipratropium (Combivent Respimat 20-100 Mcg) 1 puff RTQID INH 03/20/21 12:00 04/01/21 12:00 Fluticasone Furoate (ARNUITY 100mcg ELLIPTA) 1 puff DAILY INH 03/20/21 09:00 Albuterol Sulfate (Ventolin Hfa Inhaler) 1 puff PRN Q6HRS PRN INH SHORTNESS OF BREATH 03/20/21 09:00 Divalproex Sodium (Depakote Er) 1,000 mg QHS PO 03/21/21 21:00 03/22/21 21:48 DC Olanzapine (ZyPREXA ZYDIS) 2.5 mg PRN Q2HRS PRN PO PSYCHOSIS 03/21/21 16:30 Divalproex Sodium (Depakote Er) 250 mg QHS PO 03/21/21 21:00 03/22/21 21:48 DC Venlafaxine HCl (Effexor) 75 mg DAILY PO 03/23/21 09:00 04/02/21 08:34 Divalproex Sodium (Depakote Sprinkles) 1,250 mg HS PO 03/22/21 22:00 03/23/21 16:47 DC 03/22/21 22:00 Olanzapine (ZyPREXA) 10 mg DAILY PO 03/24/21 09:00 03/26/21 10:18 DC 03/25/21 08:11 Divalproex Sodium (Depakote Sprinkles) 500 mg DAILY PO 03/24/21 09:00 03/28/21 14:38 DC 03/28/21 08:00 Divalproex Sodium (Depakote Sprinkles) 750 mg HS PO 03/24/21 21:00 03/28/21 14:38 DC 03/27/21 20:38 Divalproex Sodium (Depakote Sprinkles) 1,250 mg HS PO 03/23/21 21:00 03/23/21 21:01 DC 03/23/21 20:10 Olanzapine (ZyPREXA) 10 mg BID PO 03/26/21 21:00 03/28/21 14:38 DC 03/28/21 07:57 Valproic Acid (Depakene) 500 mg DAILY PO 03/29/21 09:00 04/01/21 08:28 Valproic Acid (Depakene) 750 mg QHS PO 03/28/21 21:00 03/28/21 19:57 Risperidone (RisperDAL) 2 mg DAILY SL 03/29/21 09:00 04/01/21 08:29 Olanzapine (ZyPREXA ZYDIS) 10 mg BID PO 03/28/21 21:00 04/01/21 08:29 I have reviewed the current psychotropics carefully including drug interactions. Risk benefit ratio favors no change other than as noted in my dictated progress note. Diagnosis: Problems: (1) Schizoaffective disorder, bipolar type (2) Anxiety disorder, unspecified (3) Bipolar disorder, current episode mixed, severe, with psychotic features (4) Impulse disorder, unspecified RHETT MATHEW MD Apr 02, 2021 22:09
--- NOTE | 2021-04-03 01:29 | NUR ---
Patient was sitting on a chair in the hallway by her room at the beginning of shift, interacting with staff and peers. She was noticeably snappy and verbally aggressive at certain moments. She did not have her oxygen on ans was intermittently gasping for air as she exerted herself to speak. When advised to put on her oxygen, patient stated "I don't need it!" Patient did decline any assessments and also declined all her night time medications. At one point after multiple attempts by nurse, patient indicated she may try the medications if she knows the names of the medications and if she would be allowed a phone call after. Nurse preceded to inform patient about the medications and in the middle of the process, patient stated "I change my mind i don't want any, get out!" Patient later requested for analgesic balm indicating that she needed it for her knees and back and other body parts she had hit when she fell previously. Nurse provided the balm and offered to apply for patient but she declined stating "I will apply it myself, I can do it myself! Go on and do some work with others who need you!" Nurse left and indicated he was going to come back and check on patient"s application of balm and assess her pain. A few minutes later, patient came out of her room to the hallway with some of the balm applied on her eyebrows. Patient was redirected to her bathroom and advised to wash off the medication from her eyebrows. Education on the need to avoid applying the balm to face especially close to any orifice (eyes, ears, mouth). At that point, nurse took the remaining balm and informed patient that any further application will be done with the supervision of a nurse. Patient indicated understanding. She was also encouraged to wear her oxygen nasal cannula and she replied "I will put it on and go to sleep. Get out and don't allow anyone to come in, but please check on me later! Thank you." Patient remained in her room, in bed with eyes closed and her oxygen on. Will continue to monitor.
[2021-04-03 05:31] VITALS: BP 132/69
[2021-04-03] MEDS: IPRATROPIUM/ALBUTEROL 20/100mcg/INH INHALER. INH SCH ×4 (08:00→20:00)
[2021-04-03] MEDS: VENLAFAXINE 75 MG TABLET. PO SCH (08:36)
[2021-04-03] MEDS: ASPIRIN CHEWABLE 81 MG TABLET. PO SCH (08:36)
[2021-04-03] MEDS: metFORMIN 500 MG TABLET PO SCH (08:36)
[2021-04-03] MEDS: amLODIPine BESYLATE 5 MG TABLET PO SCH (08:37)
[2021-04-03] MEDS: LISINOPRIL 5 MG TABLET. PO SCH (08:37)
[2021-04-03] MEDS: risperiDONE ORAL 1 MG/ML 30ml BOTTLE. SL SCH (08:41)
[2021-04-03] MEDS: VALPROATE ACID 250 MG/5 ML ORAL SOLUTION PO SCH ×3 (08:41→21:00)
[2021-04-03] MEDS: FLUTICASONE FUROATE 100mcg/INH ELLIPTA INHALER. INH SCH (08:44)
--- NOTE | 2021-04-03 09:14 | PDOC ---
Exam Note: Jose Note: This note is a late entry for 04/01/2021 covers elements not covered in my initial note. Subjective: The patient was seen individually in the evening of 04/01/2021 with Sylvain CEBALLOS, discussed and reviewed the chart. The patient slept 6 hours previous night. I met with her n her room. She continued to refuse medications, was quite sedated as I met with her in the evening, somewhat withdrawn. Review of Systems: Shortness of breath on O2 supplements. No CV, , eye system symptoms on review. Mental Status Exam: The patient is oriented to herself. Speech coherent. Often responses monosyllabic. Abstraction fair. Computation impaired. Language function intact. Mood and affect withdrawn. No active suicidal or homicidal ideation. Laboratory Data: Reviewed. Impression: Schizoaffective disorder, bipolar type mixed with psychotic features. Anxiety disorder unspecified. Impulse control disorder unspecified. Plan: No change from initial note. Assessment: Vital Signs/I&O: Vital Signs Date Time Temp Pulse Resp B/P (MAP) Pulse Ox O2 Delivery O2 Flow Rate FiO2 04/03/21 08:37 82 132/69 04/03/21 05:31 97.7 20 100 3.0 04/02/21 05:34 refusing to wear oxygen via NC I & O 04/02/21 04/02/21 04/03/21 15:00 23:00 07:00 Intake Total 600 ml 240 ml Balance 600 ml 240 ml Labs: Laboratory Tests Test 04/03/21 07:47 Glucose (Fingerstick) 139 mg/dL (70-99) H Current Medications: Meds: Laboratory Tests Test 04/03/21 07:47 Glucose (Fingerstick) 139 mg/dL Current Medications Medications (Trade) Dose Ordered Sig/Denise Route PRN Reason Start Time Stop Time Status Last Admin Dose Admin Acetaminophen (Tylenol) 650 mg PRN Q6HRS PRN PO MILD PAIN / TEMP > 100.3'F 03/19/21 17:00 03/31/21 02:03 Multi-Ingredient Ointment (Analgesic [place]) 1 uzair PRN QID PRN TP MUSCLE PAIN 03/19/21 17:00 03/19/21 19:27 DC Al Hydroxide/Mg Hydroxide (Mylanta Plus Xs) 15 ml PRN AFTMEALHC PRN PO DYSPEPSIA 03/19/21 17:00 03/19/21 19:26 DC Magnesium Hydroxide (Milk Of Magnesia) 2,400 mg PRN QHS PRN PO CONSTIPATION 03/19/21 17:00 03/19/21 19:14 DC Acetaminophen (Tylenol) 650 mg PRN Q6HRS PRN PO PAIN/FEVER 03/19/21 18:15 Cancel Amlodipine Besylate (Norvasc) 5 mg DAILY PO 03/20/21 09:00 04/03/21 08:37 Aspirin (Aspirin Chewable) 81 mg DAILY PO 03/20/21 09:00 04/03/21 08:36 Divalproex Sodium (Depakote Sprinkles) 500 mg DAILY PO 03/20/21 09:00 03/21/21 16:33 DC 03/20/21 09:34 Latanoprost (Xalatan) 1 drop QHS OU 03/19/21 21:00 Lisinopril (Prinivil) 10 mg DAILY PO 03/20/21 09:00 03/19/21 19:19 DC Al Hydroxide/Mg Hydroxide (Mylanta Plus Xs) 15 ml PRN AFTMEALHC PRN PO HEARTBURN / GAS 03/19/21 18:15 Melatonin (Melatonin) 3 mg QHS PO 03/19/21 21:00 03/28/21 19:58 Mirtazapine (Remeron) 7.5 mg HS PO 03/19/21 21:00 03/19/21 22:33 DC Mirtazapine (Remeron) 30 mg QHS PO 03/19/21 21:00 03/28/21 19:58 Nicotine (Nicoderm Cq 14mg Patch) 1 patch DAILY TD 03/19/21 18:30 03/22/21 17:55 DC Olanzapine (ZyPREXA) 5 mg DAILY PO 03/20/21 09:00 03/23/21 16:47 DC 03/23/21 09:00 Olanzapine (ZyPREXA) 10 mg QHS PO 03/19/21 21:00 03/26/21 10:19 DC 03/25/21 20:11 Risperidone (RisperDAL) 2 mg DAILY PO 03/20/21 09:00 03/28/21 14:38 DC 03/28/21 08:00 Trazodone HCl (Desyrel) 50 mg PRN QHS PRN PO INSOMNIA 03/19/21 18:15 03/19/21 22:10 Non-Formulary Medication (Albuterol Sulfate (Proair Respiclick)) 1 puff Q6HRS PRN INH SHORTNESS OF BREATH 03/19/21 18:15 UNV Lisinopril (Prinivil) 5 mg DAILY PO 03/20/21 09:00 04/03/21 08:37 Non-Formulary Medication (Budesonide/ Formoterol Fumarate (Symbicort 160-4.5 Mcg Inhaler)) 2 puff BID IH 03/19/21 21:00 UNV Divalproex Sodium (Depakote Sprinkles) 500 mg HS PO 03/19/21 21:00 03/21/21 16:33 DC 03/20/21 20:49 Docusate Sodium (Colace) 100 mg BID PO 03/19/21 21:00 03/26/21 10:32 DC 03/25/21 20:12 Non-Formulary Medication (Latanoprost/Pf (Latanoprost 0.005% Eye Drop)) 1 drop QHS OU 03/19/21 21:00 UNV Magnesium Hydroxide (Milk Of Magnesia) 2,400 mg PRN DAILY PRN PO CONSTIPATION 03/19/21 19:15 03/29/21 13:23 Metformin HCl (Glucophage) 1,000 mg DAILYWBKFT PO 03/20/21 08:00 04/03/21 08:36 Multi-Ingredient Ointment (Analgesic [place]) 1 uzair PRN Q6HRS PRN TP MUSCLE PAIN 03/19/21 19:15 Atorvastatin Calcium (Lipitor) 5 mg QHS PO 03/19/21 21:00 03/28/21 19:58 Non-Formulary Medication (Pravastatin Sodium ) 20 mg DAILY PO 03/20/21 09:00 UNV Non-Formulary Medication (Tiotropium [place] (Spiriva)) 1 cap BID IH 03/19/21 21:00 UNV Non-Formulary Medication (Venlafaxine Hcl (Venlafaxine Hcl Er)) 37.5 mg DAILY PO 03/20/21 09:00 03/19/21 19:11 DC Venlafaxine HCl (Effexor Xr) 75 mg DAILY PO 03/20/21 09:00 03/22/21 17:33 DC 03/22/21 08:34 Albuterol/ Ipratropium (Duoneb) 3 ml RTQID NEB 03/19/21 20:00 03/20/21 07:59 DC Budesonide (Pulmicort) 0.5 mg RTBID NEB 03/19/21 20:00 03/21/21 08:08 DC Albuterol Sulfate (Ventolin) 2.5 mg PRN Q6HRS PRN NEB SHORTNESS OF BREATH 03/19/21 19:30 Cancel Albuterol/ Ipratropium (Combivent Respimat 20-100 Mcg) 1 puff RTQID INH 03/20/21 12:00 04/01/21 12:00 Fluticasone Furoate (ARNUITY 100mcg ELLIPTA) 1 puff DAILY INH 03/20/21 09:00 Albuterol Sulfate (Ventolin Hfa Inhaler) 1 puff PRN Q6HRS PRN INH SHORTNESS OF BREATH 03/20/21 09:00 Divalproex Sodium (Depakote Er) 1,000 mg QHS PO 03/21/21 21:00 03/22/21 21:48 DC Olanzapine (ZyPREXA ZYDIS) 2.5 mg PRN Q2HRS PRN PO PSYCHOSIS 03/21/21 16:30 Divalproex Sodium (Depakote Er) 250 mg QHS PO 03/21/21 21:00 03/22/21 21:48 DC Venlafaxine HCl (Effexor) 75 mg DAILY PO 03/23/21 09:00 04/03/21 08:36 Divalproex Sodium (Depakote Sprinkles) 1,250 mg HS PO 03/22/21 22:00 03/23/21 16:47 DC 03/22/21 22:00 Olanzapine (ZyPREXA) 10 mg DAILY PO 03/24/21 09:00 03/26/21 10:18 DC 03/25/21 08:11 Divalproex Sodium (Depakote Sprinkles) 500 mg DAILY PO 03/24/21 09:00 03/28/21 14:38 DC 03/28/21 08:00 Divalproex Sodium (Depakote Sprinkles) 750 mg HS PO 03/24/21 21:00 03/28/21 14:38 DC 03/27/21 20:38 Divalproex Sodium (Depakote Sprinkles) 1,250 mg HS PO 03/23/21 21:00 03/23/21 21:01 DC 03/23/21 20:10 Olanzapine (ZyPREXA) 10 mg BID PO 03/26/21 21:00 03/28/21 14:38 DC 03/28/21 07:57 Valproic Acid (Depakene) 500 mg DAILY PO 03/29/21 09:00 04/03/21 08:41 Valproic Acid (Depakene) 750 mg QHS PO 03/28/21 21:00 03/28/21 19:57 Risperidone (RisperDAL) 2 mg DAILY SL 03/29/21 09:00 04/03/21 08:41 Olanzapine (ZyPREXA ZYDIS) 10 mg BID PO 03/28/21 21:00 04/03/21 08:43 I have reviewed the current psychotropics carefully including drug interactions. Risk benefit ratio favors no change other than as noted in my dictated progress note. Diagnosis: Problems: (1) Schizoaffective disorder, bipolar type (2) Mild cognitive impairment (3) Anxiety disorder, unspecified (4) Bipolar disorder, current episode mixed, severe, with psychotic features (5) Impulse disorder, unspecified RHETT MATHEW MD Apr 03, 2021 09:14
--- NOTE | 2021-04-03 14:40 | NUR ---
Nursing note: Pt in dining room at time of AM med pass and assessment. She is compliant in only taking 3 pills and asks "Are you going to get my meds right this morning?" Pt refused every other medication. They were crushed and mixed with chocolate ensure at lunch which she was compliant in drinking. She has remained withdrawn to her room for most of the shift. Will continue to monitor.
[2021-04-03 16:17] VITALS: BP 153/65
[2021-04-03] MEDS: MELATONIN 3 MG TABLET PO SCH (20:59)
[2021-04-03] MEDS: ATORVASTATIN CALCIUM 10 MG TABLET. PO SCH (20:59)
[2021-04-03] MEDS: LATANOPROST 0.005% OPHTH SOLUTION 2.5ML BOTTLE. OU SCH (20:59)
[2021-04-03] MEDS: MIRTAZAPINE 30 MG TABLET PO SCH (20:59)
--- NOTE | 2021-04-03 22:06 | PDOC ---
Exam Note: Jose Note: Please also refer to the separate dictated note~for this date of service dictated separately.~Patient seen individually. Discussed the patient with Nursing staff reviewed the chart.~Reviewed interim history and current functioning. Reviewed vital signs,~Labs/ Radiology~and current medications noted below. Continue current treatment with the changes noted in the dictated addendum note Assessment: Vital Signs/I&O: Vital Signs Date Time Temp Pulse Resp B/P (MAP) Pulse Ox O2 Delivery O2 Flow Rate FiO2 04/03/21 16:17 97.6 107 20 153/65 (94) 90 Room Air 04/03/21 05:31 3.0 I & O 04/02/21 04/02/21 04/03/21 15:00 23:00 07:00 Intake Total 600 ml 240 ml Balance 600 ml 240 ml Labs: Laboratory Tests Test 04/03/21 07:47 Glucose (Fingerstick) 139 mg/dL (70-99) H Current Medications: Meds: Laboratory Tests Test 04/03/21 07:47 Glucose (Fingerstick) 139 mg/dL Current Medications Medications (Trade) Dose Ordered Sig/Denise Route PRN Reason Start Time Stop Time Status Last Admin Dose Admin Acetaminophen (Tylenol) 650 mg PRN Q6HRS PRN PO MILD PAIN / TEMP > 100.3'F 03/19/21 17:00 03/31/21 02:03 Multi-Ingredient Ointment (Analgesic [place]) 1 uzair PRN QID PRN TP MUSCLE PAIN 03/19/21 17:00 03/19/21 19:27 DC Al Hydroxide/Mg Hydroxide (Mylanta Plus Xs) 15 ml PRN AFTMEALHC PRN PO DYSPEPSIA 03/19/21 17:00 03/19/21 19:26 DC Magnesium Hydroxide (Milk Of Magnesia) 2,400 mg PRN QHS PRN PO CONSTIPATION 03/19/21 17:00 03/19/21 19:14 DC Acetaminophen (Tylenol) 650 mg PRN Q6HRS PRN PO PAIN/FEVER 03/19/21 18:15 Cancel Amlodipine Besylate (Norvasc) 5 mg DAILY PO 03/20/21 09:00 04/03/21 08:37 Aspirin (Aspirin Chewable) 81 mg DAILY PO 03/20/21 09:00 04/03/21 08:36 Divalproex Sodium (Depakote Sprinkles) 500 mg DAILY PO 03/20/21 09:00 03/21/21 16:33 DC 03/20/21 09:34 Latanoprost (Xalatan) 1 drop QHS OU 03/19/21 21:00 Lisinopril (Prinivil) 10 mg DAILY PO 03/20/21 09:00 03/19/21 19:19 DC Al Hydroxide/Mg Hydroxide (Mylanta Plus Xs) 15 ml PRN AFTMEALHC PRN PO HEARTBURN / GAS 03/19/21 18:15 Melatonin (Melatonin) 3 mg QHS PO 03/19/21 21:00 03/28/21 19:58 Mirtazapine (Remeron) 7.5 mg HS PO 03/19/21 21:00 03/19/21 22:33 DC Mirtazapine (Remeron) 30 mg QHS PO 03/19/21 21:00 03/28/21 19:58 Nicotine (Nicoderm Cq 14mg Patch) 1 patch DAILY TD 03/19/21 18:30 03/22/21 17:55 DC Olanzapine (ZyPREXA) 5 mg DAILY PO 03/20/21 09:00 03/23/21 16:47 DC 03/23/21 09:00 Olanzapine (ZyPREXA) 10 mg QHS PO 03/19/21 21:00 03/26/21 10:19 DC 03/25/21 20:11 Risperidone (RisperDAL) 2 mg DAILY PO 03/20/21 09:00 03/28/21 14:38 DC 03/28/21 08:00 Trazodone HCl (Desyrel) 50 mg PRN QHS PRN PO INSOMNIA 03/19/21 18:15 03/19/21 22:10 Non-Formulary Medication (Albuterol Sulfate (Proair Respiclick)) 1 puff Q6HRS PRN INH SHORTNESS OF BREATH 03/19/21 18:15 UNV Lisinopril (Prinivil) 5 mg DAILY PO 03/20/21 09:00 04/03/21 08:37 Non-Formulary Medication (Budesonide/ Formoterol Fumarate (Symbicort 160-4.5 Mcg Inhaler)) 2 puff BID IH 03/19/21 21:00 UNV Divalproex Sodium (Depakote Sprinkles) 500 mg HS PO 03/19/21 21:00 03/21/21 16:33 DC 03/20/21 20:49 Docusate Sodium (Colace) 100 mg BID PO 03/19/21 21:00 03/26/21 10:32 DC 03/25/21 20:12 Non-Formulary Medication (Latanoprost/Pf (Latanoprost 0.005% Eye Drop)) 1 drop QHS OU 03/19/21 21:00 UNV Magnesium Hydroxide (Milk Of Magnesia) 2,400 mg PRN DAILY PRN PO CONSTIPATION 03/19/21 19:15 03/29/21 13:23 Metformin HCl (Glucophage) 1,000 mg DAILYWBKFT PO 03/20/21 08:00 04/03/21 08:36 Multi-Ingredient Ointment (Analgesic [place]) 1 uzair PRN Q6HRS PRN TP MUSCLE PAIN 03/19/21 19:15 Atorvastatin Calcium (Lipitor) 5 mg QHS PO 03/19/21 21:00 03/28/21 19:58 Non-Formulary Medication (Pravastatin Sodium ) 20 mg DAILY PO 03/20/21 09:00 UNV Non-Formulary Medication (Tiotropium [place] (Spiriva)) 1 cap BID IH 03/19/21 21:00 UNV Non-Formulary Medication (Venlafaxine Hcl (Venlafaxine Hcl Er)) 37.5 mg DAILY PO 03/20/21 09:00 03/19/21 19:11 DC Venlafaxine HCl (Effexor Xr) 75 mg DAILY PO 03/20/21 09:00 03/22/21 17:33 DC 03/22/21 08:34 Albuterol/ Ipratropium (Duoneb) 3 ml RTQID NEB 03/19/21 20:00 03/20/21 07:59 DC Budesonide (Pulmicort) 0.5 mg RTBID NEB 03/19/21 20:00 03/21/21 08:08 DC Albuterol Sulfate (Ventolin) 2.5 mg PRN Q6HRS PRN NEB SHORTNESS OF BREATH 03/19/21 19:30 Cancel Albuterol/ Ipratropium (Combivent Respimat 20-100 Mcg) 1 puff RTQID INH 03/20/21 12:00 04/01/21 12:00 Fluticasone Furoate (ARNUITY 100mcg ELLIPTA) 1 puff DAILY INH 03/20/21 09:00 Albuterol Sulfate (Ventolin Hfa Inhaler) 1 puff PRN Q6HRS PRN INH SHORTNESS OF BREATH 03/20/21 09:00 Divalproex Sodium (Depakote Er) 1,000 mg QHS PO 03/21/21 21:00 03/22/21 21:48 DC Olanzapine (ZyPREXA ZYDIS) 2.5 mg PRN Q2HRS PRN PO PSYCHOSIS 03/21/21 16:30 Divalproex Sodium (Depakote Er) 250 mg QHS PO 03/21/21 21:00 03/22/21 21:48 DC Venlafaxine HCl (Effexor) 75 mg DAILY PO 03/23/21 09:00 04/03/21 08:36 Divalproex Sodium (Depakote Sprinkles) 1,250 mg HS PO 03/22/21 22:00 03/23/21 16:47 DC 03/22/21 22:00 Olanzapine (ZyPREXA) 10 mg DAILY PO 03/24/21 09:00 03/26/21 10:18 DC 03/25/21 08:11 Divalproex Sodium (Depakote Sprinkles) 500 mg DAILY PO 03/24/21 09:00 03/28/21 14:38 DC 03/28/21 08:00 Divalproex Sodium (Depakote Sprinkles) 750 mg HS PO 03/24/21 21:00 03/28/21 14:38 DC 03/27/21 20:38 Divalproex Sodium (Depakote Sprinkles) 1,250 mg HS PO 03/23/21 21:00 03/23/21 21:01 DC 03/23/21 20:10 Olanzapine (ZyPREXA) 10 mg BID PO 03/26/21 21:00 03/28/21 14:38 DC 03/28/21 07:57 Valproic Acid (Depakene) 500 mg DAILY PO 03/29/21 09:00 04/03/21 08:41 Valproic Acid (Depakene) 750 mg QHS PO 03/28/21 21:00 03/28/21 19:57 Risperidone (RisperDAL) 2 mg DAILY SL 03/29/21 09:00 04/03/21 08:41 Olanzapine (ZyPREXA ZYDIS) 10 mg BID PO 03/28/21 21:00 04/03/21 20:55 I have reviewed the current psychotropics carefully including drug interactions. Risk benefit ratio favors no change other than as noted in my dictated progress note. Diagnosis: Problems: (1) Schizoaffective disorder, bipolar type (2) Mild cognitive impairment (3) Anxiety disorder, unspecified (4) Bipolar disorder, current episode mixed, severe, with psychotic features (5) Impulse disorder, unspecified RHETT MATHEW MD Apr 03, 2021 22:06
--- NOTE | 2021-04-04 02:55 | NUR ---
Nursing Note The patient was non compliant with her assessment and medications. The patient refused to take any form of her Depakote that was offered; instead stating "I only take one depakote." The patient declined to answer assessment questions. Currently sleeping in her room.
[2021-04-04 05:47] VITALS: BP 130/66
[2021-04-04] MEDS: VENLAFAXINE 75 MG TABLET. PO SCH (07:37)
[2021-04-04] MEDS: LISINOPRIL 5 MG TABLET. PO SCH (07:37)
[2021-04-04] MEDS: metFORMIN 500 MG TABLET PO SCH (07:39)
[2021-04-04] MEDS: VALPROATE ACID 250 MG/5 ML ORAL SOLUTION PO SCH ×2 (07:46→21:49)
[2021-04-04] MEDS: ASPIRIN CHEWABLE 81 MG TABLET. PO SCH (07:47)
[2021-04-04] MEDS: IPRATROPIUM/ALBUTEROL 20/100mcg/INH INHALER. INH SCH ×4 (07:47→20:00)
[2021-04-04] MEDS: FLUTICASONE FUROATE 100mcg/INH ELLIPTA INHALER. INH SCH (07:47)
[2021-04-04] MEDS: amLODIPine BESYLATE 5 MG TABLET PO SCH (07:47)
[2021-04-04] MEDS: risperiDONE ORAL 1 MG/ML 30ml BOTTLE. SL SCH (07:48)
--- NOTE | 2021-04-04 09:23 | PDOC ---
Exam Note: Jose Note: This note is a late entry for 04/02/2021 covers elements not covered in my initial note. Subjective: The patient was seen individually in the evening of 04/02/2021 with Magalis CEBALLOS, discussed and reviewed the chart. The patient slept 1-1/2 hours previous night. Previous evening the patients oxygen saturation was less than 74% and she was not keeping her oxygen in place and removing it. She has been started on O2 supplements and percentage sats have increased to 94%. She refused inhalers. BP is unremarkable, refused antipsychotic meds today. I met with her in her room. Review of Systems: Shortness of breath on O2 supplements. No CV, , eye system symptoms on review. Mental Status Exam: The patient is oriented to herself. Speech coherent at times somewhat pressured. Abstraction fair. Computation impaired. Language function intact. Mood and affect withdrawn. No active suicidal or homicidal ideation. Laboratory Data: Reviewed. Impression: Schizoaffective disorder, bipolar type mixed with psychotic features. Anxiety disorder unspecified. Impulse control disorder unspecified. Plan: No change from initial note. Assessment: Vital Signs/I&O: Vital Signs Date Time Temp Pulse Resp B/P (MAP) Pulse Ox O2 Delivery O2 Flow Rate FiO2 04/04/21 07:47 95 130/66 04/04/21 05:47 97.3 22 92 3.0 04/03/21 16:17 Room Air I & O 04/03/21 04/03/21 04/04/21 15:00 23:00 07:00 Intake Total 600 ml 200 ml 120 ml Balance 600 ml 200 ml 120 ml Labs: Laboratory Tests Test 04/04/21 07:35 Glucose (Fingerstick) 191 mg/dL (70-99) H Current Medications: Meds: Laboratory Tests Test 04/04/21 07:35 Glucose (Fingerstick) 191 mg/dL Current Medications Medications (Trade) Dose Ordered Sig/Denise Route PRN Reason Start Time Stop Time Status Last Admin Dose Admin Acetaminophen (Tylenol) 650 mg PRN Q6HRS PRN PO MILD PAIN / TEMP > 100.3'F 03/19/21 17:00 03/31/21 02:03 Multi-Ingredient Ointment (Analgesic [place]) 1 uzair PRN QID PRN TP MUSCLE PAIN 03/19/21 17:00 03/19/21 19:27 DC Al Hydroxide/Mg Hydroxide (Mylanta Plus Xs) 15 ml PRN AFTMEALHC PRN PO DYSPEPSIA 03/19/21 17:00 03/19/21 19:26 DC Magnesium Hydroxide (Milk Of Magnesia) 2,400 mg PRN QHS PRN PO CONSTIPATION 03/19/21 17:00 03/19/21 19:14 DC Acetaminophen (Tylenol) 650 mg PRN Q6HRS PRN PO PAIN/FEVER 03/19/21 18:15 Cancel Amlodipine Besylate (Norvasc) 5 mg DAILY PO 03/20/21 09:00 04/04/21 07:47 Aspirin (Aspirin Chewable) 81 mg DAILY PO 03/20/21 09:00 04/04/21 07:47 Divalproex Sodium (Depakote Sprinkles) 500 mg DAILY PO 03/20/21 09:00 03/21/21 16:33 DC 03/20/21 09:34 Latanoprost (Xalatan) 1 drop QHS OU 03/19/21 21:00 Lisinopril (Prinivil) 10 mg DAILY PO 03/20/21 09:00 03/19/21 19:19 DC Al Hydroxide/Mg Hydroxide (Mylanta Plus Xs) 15 ml PRN AFTMEALHC PRN PO HEARTBURN / GAS 03/19/21 18:15 Melatonin (Melatonin) 3 mg QHS PO 03/19/21 21:00 03/28/21 19:58 Mirtazapine (Remeron) 7.5 mg HS PO 03/19/21 21:00 03/19/21 22:33 DC Mirtazapine (Remeron) 30 mg QHS PO 03/19/21 21:00 03/28/21 19:58 Nicotine (Nicoderm Cq 14mg Patch) 1 patch DAILY TD 03/19/21 18:30 03/22/21 17:55 DC Olanzapine (ZyPREXA) 5 mg DAILY PO 03/20/21 09:00 03/23/21 16:47 DC 03/23/21 09:00 Olanzapine (ZyPREXA) 10 mg QHS PO 03/19/21 21:00 03/26/21 10:19 DC 03/25/21 20:11 Risperidone (RisperDAL) 2 mg DAILY PO 03/20/21 09:00 03/28/21 14:38 DC 03/28/21 08:00 Trazodone HCl (Desyrel) 50 mg PRN QHS PRN PO INSOMNIA 03/19/21 18:15 03/19/21 22:10 Non-Formulary Medication (Albuterol Sulfate (Proair Respiclick)) 1 puff Q6HRS PRN INH SHORTNESS OF BREATH 03/19/21 18:15 UNV Lisinopril (Prinivil) 5 mg DAILY PO 03/20/21 09:00 04/04/21 07:37 Non-Formulary Medication (Budesonide/ Formoterol Fumarate (Symbicort 160-4.5 Mcg Inhaler)) 2 puff BID IH 03/19/21 21:00 UNV Divalproex Sodium (Depakote Sprinkles) 500 mg HS PO 03/19/21 21:00 03/21/21 16:33 DC 03/20/21 20:49 Docusate Sodium (Colace) 100 mg BID PO 03/19/21 21:00 03/26/21 10:32 DC 03/25/21 20:12 Non-Formulary Medication (Latanoprost/Pf (Latanoprost 0.005% Eye Drop)) 1 drop QHS OU 03/19/21 21:00 UNV Magnesium Hydroxide (Milk Of Magnesia) 2,400 mg PRN DAILY PRN PO CONSTIPATION 03/19/21 19:15 03/29/21 13:23 Metformin HCl (Glucophage) 1,000 mg DAILYWBKFT PO 03/20/21 08:00 04/04/21 07:39 Multi-Ingredient Ointment (Analgesic [place]) 1 uzair PRN Q6HRS PRN TP MUSCLE PAIN 03/19/21 19:15 Atorvastatin Calcium (Lipitor) 5 mg QHS PO 03/19/21 21:00 03/28/21 19:58 Non-Formulary Medication (Pravastatin Sodium ) 20 mg DAILY PO 03/20/21 09:00 UNV Non-Formulary Medication (Tiotropium [place] (Spiriva)) 1 cap BID IH 03/19/21 21:00 UNV Non-Formulary Medication (Venlafaxine Hcl (Venlafaxine Hcl Er)) 37.5 mg DAILY PO 03/20/21 09:00 03/19/21 19:11 DC Venlafaxine HCl (Effexor Xr) 75 mg DAILY PO 03/20/21 09:00 03/22/21 17:33 DC 03/22/21 08:34 Albuterol/ Ipratropium (Duoneb) 3 ml RTQID NEB 03/19/21 20:00 03/20/21 07:59 DC Budesonide (Pulmicort) 0.5 mg RTBID NEB 03/19/21 20:00 03/21/21 08:08 DC Albuterol Sulfate (Ventolin) 2.5 mg PRN Q6HRS PRN NEB SHORTNESS OF BREATH 03/19/21 19:30 Cancel Albuterol/ Ipratropium (Combivent Respimat 20-100 Mcg) 1 puff RTQID INH 03/20/21 12:00 04/01/21 12:00 Fluticasone Furoate (ARNUITY 100mcg ELLIPTA) 1 puff DAILY INH 03/20/21 09:00 Albuterol Sulfate (Ventolin Hfa Inhaler) 1 puff PRN Q6HRS PRN INH SHORTNESS OF BREATH 03/20/21 09:00 Divalproex Sodium (Depakote Er) 1,000 mg QHS PO 03/21/21 21:00 03/22/21 21:48 DC Olanzapine (ZyPREXA ZYDIS) 2.5 mg PRN Q2HRS PRN PO PSYCHOSIS 03/21/21 16:30 Divalproex Sodium (Depakote Er) 250 mg QHS PO 03/21/21 21:00 03/22/21 21:48 DC Venlafaxine HCl (Effexor) 75 mg DAILY PO 03/23/21 09:00 04/04/21 07:37 Divalproex Sodium (Depakote Sprinkles) 1,250 mg HS PO 03/22/21 22:00 03/23/21 16:47 DC 03/22/21 22:00 Olanzapine (ZyPREXA) 10 mg DAILY PO 03/24/21 09:00 03/26/21 10:18 DC 03/25/21 08:11 Divalproex Sodium (Depakote Sprinkles) 500 mg DAILY PO 03/24/21 09:00 03/28/21 14:38 DC 03/28/21 08:00 Divalproex Sodium (Depakote Sprinkles) 750 mg HS PO 03/24/21 21:00 03/28/21 14:38 DC 03/27/21 20:38 Divalproex Sodium (Depakote Sprinkles) 1,250 mg HS PO 03/23/21 21:00 03/23/21 21:01 DC 03/23/21 20:10 Olanzapine (ZyPREXA) 10 mg BID PO 03/26/21 21:00 03/28/21 14:38 DC 03/28/21 07:57 Valproic Acid (Depakene) 500 mg DAILY PO 03/29/21 09:00 04/04/21 07:46 Valproic Acid (Depakene) 750 mg QHS PO 03/28/21 21:00 03/28/21 19:57 Risperidone (RisperDAL) 2 mg DAILY SL 03/29/21 09:00 04/04/21 07:48 Olanzapine (ZyPREXA ZYDIS) 10 mg BID PO 03/28/21 21:00 04/04/21 07:46 I have reviewed the current psychotropics carefully including drug interactions. Risk benefit ratio favors no change other than as noted in my dictated progress note. Diagnosis: Problems: (1) Schizoaffective disorder, bipolar type (2) Mild cognitive impairment (3) Anxiety disorder, unspecified (4) Bipolar disorder, current episode mixed, severe, with psychotic features (5) Impulse disorder, unspecified RHETT MATHEW MD Apr 04, 2021 09:23
--- NOTE | 2021-04-04 09:49 | PDOC ---
Exam Note: Jose Note: This note is a late entry for 04/03/2021 covers elements not covered in my initial note. Subjective: The patient was seen individually in the evening of 04/03/2021 with Nory CEBALLOS, discussed and reviewed the chart. The patient slept 5-1/4 hours previous night. She refused her medications, did well in the morning at lunch time, took her meds in chocolate Ensure. I had lengthy discussion with her about being compliant with her medications and she is reluctantly agreeable to this but wanting to be discharged. Review of Systems: Shortness of breath on O2 supplements. No CV, , eye system symptoms on review. Mental Status Exam: The patient is oriented to herself. Speech coherent. Of ten responses monosyllabic. Abstraction fair. Computation impaired. Language function intact. Mood and affect withdrawn. No active suicidal or homicidal ideation. Laboratory Data: Reviewed. Impression: Schizoaffective disorder, bipolar type mixed with psychotic features. Anxiety disorder unspecified. Impulse control disorder unspecified. Plan: No change from initial note. Assessment: Vital Signs/I&O: Vital Signs Date Time Temp Pulse Resp B/P (MAP) Pulse Ox O2 Delivery O2 Flow Rate FiO2 04/04/21 07:47 95 130/66 04/04/21 05:47 97.3 22 92 3.0 04/03/21 16:17 Room Air I & O 04/03/21 04/03/21 04/04/21 14:59 22:59 06:59 Intake Total 600 ml 200 ml 120 ml Balance 600 ml 200 ml 120 ml Labs: Laboratory Tests Test 04/04/21 07:35 Glucose (Fingerstick) 191 mg/dL (70-99) H Current Medications: Meds: Laboratory Tests Test 04/04/21 07:35 Glucose (Fingerstick) 191 mg/dL Current Medications Medications (Trade) Dose Ordered Sig/Denise Route PRN Reason Start Time Stop Time Status Last Admin Dose Admin Acetaminophen (Tylenol) 650 mg PRN Q6HRS PRN PO MILD PAIN / TEMP > 100.3'F 03/19/21 17:00 03/31/21 02:03 Multi-Ingredient Ointment (Analgesic [place]) 1 uzair PRN QID PRN TP MUSCLE PAIN 03/19/21 17:00 03/19/21 19:27 DC Al Hydroxide/Mg Hydroxide (Mylanta Plus Xs) 15 ml PRN AFTMEALHC PRN PO DYSPEPSIA 03/19/21 17:00 03/19/21 19:26 DC Magnesium Hydroxide (Milk Of Magnesia) 2,400 mg PRN QHS PRN PO CONSTIPATION 03/19/21 17:00 03/19/21 19:14 DC Acetaminophen (Tylenol) 650 mg PRN Q6HRS PRN PO PAIN/FEVER 03/19/21 18:15 Cancel Amlodipine Besylate (Norvasc) 5 mg DAILY PO 03/20/21 09:00 04/04/21 07:47 Aspirin (Aspirin Chewable) 81 mg DAILY PO 03/20/21 09:00 04/04/21 07:47 Divalproex Sodium (Depakote Sprinkles) 500 mg DAILY PO 03/20/21 09:00 03/21/21 16:33 DC 03/20/21 09:34 Latanoprost (Xalatan) 1 drop QHS OU 03/19/21 21:00 Lisinopril (Prinivil) 10 mg DAILY PO 03/20/21 09:00 03/19/21 19:19 DC Al Hydroxide/Mg Hydroxide (Mylanta Plus Xs) 15 ml PRN AFTMEALHC PRN PO HEARTBURN / GAS 03/19/21 18:15 Melatonin (Melatonin) 3 mg QHS PO 03/19/21 21:00 03/28/21 19:58 Mirtazapine (Remeron) 7.5 mg HS PO 03/19/21 21:00 03/19/21 22:33 DC Mirtazapine (Remeron) 30 mg QHS PO 03/19/21 21:00 03/28/21 19:58 Nicotine (Nicoderm Cq 14mg Patch) 1 patch DAILY TD 03/19/21 18:30 03/22/21 17:55 DC Olanzapine (ZyPREXA) 5 mg DAILY PO 03/20/21 09:00 03/23/21 16:47 DC 03/23/21 09:00 Olanzapine (ZyPREXA) 10 mg QHS PO 03/19/21 21:00 03/26/21 10:19 DC 03/25/21 20:11 Risperidone (RisperDAL) 2 mg DAILY PO 03/20/21 09:00 03/28/21 14:38 DC 03/28/21 08:00 Trazodone HCl (Desyrel) 50 mg PRN QHS PRN PO INSOMNIA 03/19/21 18:15 03/19/21 22:10 Non-Formulary Medication (Albuterol Sulfate (Proair Respiclick)) 1 puff Q6HRS PRN INH SHORTNESS OF BREATH 03/19/21 18:15 UNV Lisinopril (Prinivil) 5 mg DAILY PO 03/20/21 09:00 04/04/21 07:37 Non-Formulary Medication (Budesonide/ Formoterol Fumarate (Symbicort 160-4.5 Mcg Inhaler)) 2 puff BID IH 03/19/21 21:00 UNV Divalproex Sodium (Depakote Sprinkles) 500 mg HS PO 03/19/21 21:00 03/21/21 16:33 DC 03/20/21 20:49 Docusate Sodium (Colace) 100 mg BID PO 03/19/21 21:00 03/26/21 10:32 DC 03/25/21 20:12 Non-Formulary Medication (Latanoprost/Pf (Latanoprost 0.005% Eye Drop)) 1 drop QHS OU 03/19/21 21:00 UNV Magnesium Hydroxide (Milk Of Magnesia) 2,400 mg PRN DAILY PRN PO CONSTIPATION 03/19/21 19:15 03/29/21 13:23 Metformin HCl (Glucophage) 1,000 mg DAILYWBKFT PO 03/20/21 08:00 04/04/21 07:39 Multi-Ingredient Ointment (Analgesic [place]) 1 uzair PRN Q6HRS PRN TP MUSCLE PAIN 03/19/21 19:15 Atorvastatin Calcium (Lipitor) 5 mg QHS PO 03/19/21 21:00 03/28/21 19:58 Non-Formulary Medication (Pravastatin Sodium ) 20 mg DAILY PO 03/20/21 09:00 UNV Non-Formulary Medication (Tiotropium [place] (Spiriva)) 1 cap BID IH 03/19/21 21:00 UNV Non-Formulary Medication (Venlafaxine Hcl (Venlafaxine Hcl Er)) 37.5 mg DAILY PO 03/20/21 09:00 03/19/21 19:11 DC Venlafaxine HCl (Effexor Xr) 75 mg DAILY PO 03/20/21 09:00 03/22/21 17:33 DC 03/22/21 08:34 Albuterol/ Ipratropium (Duoneb) 3 ml RTQID NEB 03/19/21 20:00 03/20/21 07:59 DC Budesonide (Pulmicort) 0.5 mg RTBID NEB 03/19/21 20:00 03/21/21 08:08 DC Albuterol Sulfate (Ventolin) 2.5 mg PRN Q6HRS PRN NEB SHORTNESS OF BREATH 03/19/21 19:30 Cancel Albuterol/ Ipratropium (Combivent Respimat 20-100 Mcg) 1 puff RTQID INH 03/20/21 12:00 04/01/21 12:00 Fluticasone Furoate (ARNUITY 100mcg ELLIPTA) 1 puff DAILY INH 03/20/21 09:00 Albuterol Sulfate (Ventolin Hfa Inhaler) 1 puff PRN Q6HRS PRN INH SHORTNESS OF BREATH 03/20/21 09:00 Divalproex Sodium (Depakote Er) 1,000 mg QHS PO 03/21/21 21:00 03/22/21 21:48 DC Olanzapine (ZyPREXA ZYDIS) 2.5 mg PRN Q2HRS PRN PO PSYCHOSIS 03/21/21 16:30 Divalproex Sodium (Depakote Er) 250 mg QHS PO 03/21/21 21:00 03/22/21 21:48 DC Venlafaxine HCl (Effexor) 75 mg DAILY PO 03/23/21 09:00 04/04/21 07:37 Divalproex Sodium (Depakote Sprinkles) 1,250 mg HS PO 03/22/21 22:00 03/23/21 16:47 DC 03/22/21 22:00 Olanzapine (ZyPREXA) 10 mg DAILY PO 03/24/21 09:00 03/26/21 10:18 DC 03/25/21 08:11 Divalproex Sodium (Depakote Sprinkles) 500 mg DAILY PO 03/24/21 09:00 03/28/21 14:38 DC 03/28/21 08:00 Divalproex Sodium (Depakote Sprinkles) 750 mg HS PO 03/24/21 21:00 03/28/21 14:38 DC 03/27/21 20:38 Divalproex Sodium (Depakote Sprinkles) 1,250 mg HS PO 03/23/21 21:00 03/23/21 21:01 DC 03/23/21 20:10 Olanzapine (ZyPREXA) 10 mg BID PO 03/26/21 21:00 03/28/21 14:38 DC 03/28/21 07:57 Valproic Acid (Depakene) 500 mg DAILY PO 03/29/21 09:00 04/04/21 07:46 Valproic Acid (Depakene) 750 mg QHS PO 03/28/21 21:00 03/28/21 19:57 Risperidone (RisperDAL) 2 mg DAILY SL 03/29/21 09:00 04/04/21 07:48 Olanzapine (ZyPREXA ZYDIS) 10 mg BID PO 03/28/21 21:00 04/04/21 07:46 I have reviewed the current psychotropics carefully including drug interactions. Risk benefit ratio favors no change other than as noted in my dictated progress note. Diagnosis: Problems: (1) Schizoaffective disorder, bipolar type (2) Mild cognitive impairment (3) Anxiety disorder, unspecified (4) Bipolar disorder, current episode mixed, severe, with psychotic features (5) Impulse disorder, unspecified RHETT MATHEW MD Apr 04, 2021 09:49
--- NOTE | 2021-04-04 11:36 | NUR ---
Nursing note: Pt in her room at time of AM med pass and assessment. Pt is compliant in only taking specific meds whole. The others were crushed and mixed with ensure at breakfast. Pt only drank about half of the ensure and refused the rest. It is unknown how much of her AM meds she received. Pt was observed having a conversation with someone sitting across the table from her that was not visible to staff. She is currently sitting quietly in her room. Will continue to monitor.
--- NOTE | 2021-04-04 12:14 | NUR ---
Treatment team note: Pt is eating roughly 75% of meals and sleeping on average 5 hours per night. Pt continues to be irritable, sarcastic and rude to staff during assessment/interactions. Pt is picking and choosing the meds that she takes and looks at only taking certain ones. Pt also will not fully drink all liquids as she is aware that some of her medications are in her drinks. Pt attended one group with very minimal engagement; otherwise maintains in her room and comes out for meals. Pt is also desating in the 60's and 70's needing 2.5-3L of oxygen; pt must be watched with the oxygen or she ends up taking it off.
--- NOTE | 2021-04-04 12:55 | NUR ---
WEEKLY ACTIVITY THERAPY NOTE Date of Admission: 03/19/21 Date of AT Assessment: 03/22 Precipitating behaviors that initiated intake and admission: at home, hearing voices, agitation, refusing to eat or take her medications, refusing cares, paranoia, auditory hallucinations, thoughts of suicide, insomnia Goal aimed: increase stress management and relaxation skills Initial Goal: Pt will participate in at least three individual or group Activity Therapy sessions before discharge. Weekly progress towards goal: on track (03/23-Chocolate fun facts and milkshakes, 03/31-meet the needs) Group participation level:1 min Weekly highlights: accepted a beverage from [employer] morning Behaviors observed: withdrawn to room, limited to no interest in groups Plan: no change to goal Beneficial adaptations: basic needs
--- NOTE | 2021-04-04 15:00 | NUR ---
ANITA completed a concurrent review with Beth for continued stay. ANITA is waiting to find out re: discharge/approval.
[2021-04-04 16:20] VITALS: BP 144/75
[2021-04-04] MEDS: LATANOPROST 0.005% OPHTH SOLUTION 2.5ML BOTTLE. OU SCH (21:00)
[2021-04-04] MEDS: MIRTAZAPINE 30 MG TABLET PO SCH (21:00)
[2021-04-04] MEDS: MELATONIN 3 MG TABLET PO SCH (21:00)
[2021-04-04] MEDS: ATORVASTATIN CALCIUM 10 MG TABLET. PO SCH (21:00)
--- NOTE | 2021-04-04 22:18 | PDOC ---
Exam Note: Jose Note: Please also refer to the separate dictated note~for this date of service dictated separately.~Patient seen individually. Discussed the patient with Nursing staff reviewed the chart.~Reviewed interim history and current functioning. Reviewed vital signs,~Labs/ Radiology~and current medications noted below. Continue current treatment with the changes noted in the dictated addendum note Assessment: Vital Signs/I&O: Vital Signs Date Time Temp Pulse Resp B/P (MAP) Pulse Ox O2 Delivery O2 Flow Rate FiO2 04/04/21 16:20 97.5 98 20 144/75 (98) 91 3.0 04/03/21 16:17 Room Air I & O 04/03/21 04/03/21 04/04/21 14:59 22:59 06:59 Intake Total 600 ml 200 ml 120 ml Balance 600 ml 200 ml 120 ml Labs: Laboratory Tests Test 04/04/21 07:35 Glucose (Fingerstick) 191 mg/dL (70-99) H Current Medications: Meds: Laboratory Tests Test 04/04/21 07:35 Glucose (Fingerstick) 191 mg/dL Current Medications Medications (Trade) Dose Ordered Sig/Denise Route PRN Reason Start Time Stop Time Status Last Admin Dose Admin Acetaminophen (Tylenol) 650 mg PRN Q6HRS PRN PO MILD PAIN / TEMP > 100.3'F 03/19/21 17:00 03/31/21 02:03 Multi-Ingredient Ointment (Analgesic [place]) 1 uzair PRN QID PRN TP MUSCLE PAIN 03/19/21 17:00 03/19/21 19:27 DC Al Hydroxide/Mg Hydroxide (Mylanta Plus Xs) 15 ml PRN AFTMEALHC PRN PO DYSPEPSIA 03/19/21 17:00 03/19/21 19:26 DC Magnesium Hydroxide (Milk Of Magnesia) 2,400 mg PRN QHS PRN PO CONSTIPATION 03/19/21 17:00 03/19/21 19:14 DC Acetaminophen (Tylenol) 650 mg PRN Q6HRS PRN PO PAIN/FEVER 03/19/21 18:15 Cancel Amlodipine Besylate (Norvasc) 5 mg DAILY PO 03/20/21 09:00 04/04/21 07:47 Aspirin (Aspirin Chewable) 81 mg DAILY PO 03/20/21 09:00 04/04/21 07:47 Divalproex Sodium (Depakote Sprinkles) 500 mg DAILY PO 03/20/21 09:00 03/21/21 16:33 DC 03/20/21 09:34 Latanoprost (Xalatan) 1 drop QHS OU 03/19/21 21:00 Lisinopril (Prinivil) 10 mg DAILY PO 03/20/21 09:00 03/19/21 19:19 DC Al Hydroxide/Mg Hydroxide (Mylanta Plus Xs) 15 ml PRN AFTMEALHC PRN PO HEARTBURN / GAS 03/19/21 18:15 Melatonin (Melatonin) 3 mg QHS PO 03/19/21 21:00 03/28/21 19:58 Mirtazapine (Remeron) 7.5 mg HS PO 03/19/21 21:00 03/19/21 22:33 DC Mirtazapine (Remeron) 30 mg QHS PO 03/19/21 21:00 03/28/21 19:58 Nicotine (Nicoderm Cq 14mg Patch) 1 patch DAILY TD 03/19/21 18:30 03/22/21 17:55 DC Olanzapine (ZyPREXA) 5 mg DAILY PO 03/20/21 09:00 03/23/21 16:47 DC 03/23/21 09:00 Olanzapine (ZyPREXA) 10 mg QHS PO 03/19/21 21:00 03/26/21 10:19 DC 03/25/21 20:11 Risperidone (RisperDAL) 2 mg DAILY PO 03/20/21 09:00 03/28/21 14:38 DC 03/28/21 08:00 Trazodone HCl (Desyrel) 50 mg PRN QHS PRN PO INSOMNIA 03/19/21 18:15 03/19/21 22:10 Non-Formulary Medication (Albuterol Sulfate (Proair Respiclick)) 1 puff Q6HRS PRN INH SHORTNESS OF BREATH 03/19/21 18:15 UNV Lisinopril (Prinivil) 5 mg DAILY PO 03/20/21 09:00 04/04/21 07:37 Non-Formulary Medication (Budesonide/ Formoterol Fumarate (Symbicort 160-4.5 Mcg Inhaler)) 2 puff BID IH 03/19/21 21:00 UNV Divalproex Sodium (Depakote Sprinkles) 500 mg HS PO 03/19/21 21:00 03/21/21 16:33 DC 03/20/21 20:49 Docusate Sodium (Colace) 100 mg BID PO 03/19/21 21:00 03/26/21 10:32 DC 03/25/21 20:12 Non-Formulary Medication (Latanoprost/Pf (Latanoprost 0.005% Eye Drop)) 1 drop QHS OU 03/19/21 21:00 UNV Magnesium Hydroxide (Milk Of Magnesia) 2,400 mg PRN DAILY PRN PO CONSTIPATION 03/19/21 19:15 03/29/21 13:23 Metformin HCl (Glucophage) 1,000 mg DAILYWBKFT PO 03/20/21 08:00 04/04/21 07:39 Multi-Ingredient Ointment (Analgesic [place]) 1 uzair PRN Q6HRS PRN TP MUSCLE PAIN 03/19/21 19:15 Atorvastatin Calcium (Lipitor) 5 mg QHS PO 03/19/21 21:00 03/28/21 19:58 Non-Formulary Medication (Pravastatin Sodium ) 20 mg DAILY PO 03/20/21 09:00 UNV Non-Formulary Medication (Tiotropium [place] (Spiriva)) 1 cap BID IH 03/19/21 21:00 UNV Non-Formulary Medication (Venlafaxine Hcl (Venlafaxine Hcl Er)) 37.5 mg DAILY PO 03/20/21 09:00 03/19/21 19:11 DC Venlafaxine HCl (Effexor Xr) 75 mg DAILY PO 03/20/21 09:00 03/22/21 17:33 DC 03/22/21 08:34 Albuterol/ Ipratropium (Duoneb) 3 ml RTQID NEB 03/19/21 20:00 03/20/21 07:59 DC Budesonide (Pulmicort) 0.5 mg RTBID NEB 03/19/21 20:00 03/21/21 08:08 DC Albuterol Sulfate (Ventolin) 2.5 mg PRN Q6HRS PRN NEB SHORTNESS OF BREATH 03/19/21 19:30 Cancel Albuterol/ Ipratropium (Combivent Respimat 20-100 Mcg) 1 puff RTQID INH 03/20/21 12:00 04/01/21 12:00 Fluticasone Furoate (ARNUITY 100mcg ELLIPTA) 1 puff DAILY INH 03/20/21 09:00 Albuterol Sulfate (Ventolin Hfa Inhaler) 1 puff PRN Q6HRS PRN INH SHORTNESS OF BREATH 03/20/21 09:00 Divalproex Sodium (Depakote Er) 1,000 mg QHS PO 03/21/21 21:00 03/22/21 21:48 DC Olanzapine (ZyPREXA ZYDIS) 2.5 mg PRN Q2HRS PRN PO PSYCHOSIS 03/21/21 16:30 Divalproex Sodium (Depakote Er) 250 mg QHS PO 03/21/21 21:00 03/22/21 21:48 DC Venlafaxine HCl (Effexor) 75 mg DAILY PO 03/23/21 09:00 04/04/21 07:37 Divalproex Sodium (Depakote Sprinkles) 1,250 mg HS PO 03/22/21 22:00 03/23/21 16:47 DC 03/22/21 22:00 Olanzapine (ZyPREXA) 10 mg DAILY PO 03/24/21 09:00 03/26/21 10:18 DC 03/25/21 08:11 Divalproex Sodium (Depakote Sprinkles) 500 mg DAILY PO 03/24/21 09:00 03/28/21 14:38 DC 03/28/21 08:00 Divalproex Sodium (Depakote Sprinkles) 750 mg HS PO 03/24/21 21:00 03/28/21 14:38 DC 03/27/21 20:38 Divalproex Sodium (Depakote Sprinkles) 1,250 mg HS PO 03/23/21 21:00 03/23/21 21:01 DC 03/23/21 20:10 Olanzapine (ZyPREXA) 10 mg BID PO 03/26/21 21:00 03/28/21 14:38 DC 03/28/21 07:57 Valproic Acid (Depakene) 500 mg DAILY PO 03/29/21 09:00 04/04/21 07:46 Valproic Acid (Depakene) 750 mg QHS PO 03/28/21 21:00 04/04/21 21:49 Risperidone (RisperDAL) 2 mg DAILY SL 03/29/21 09:00 04/04/21 07:48 Olanzapine (ZyPREXA ZYDIS) 10 mg BID PO 03/28/21 21:00 04/04/21 21:50 I have reviewed the current psychotropics carefully including drug interactions. Risk benefit ratio favors no change other than as noted in my dictated progress note. Diagnosis: Problems: (1) Schizoaffective disorder, bipolar type (2) Mild cognitive impairment (3) Anxiety disorder, unspecified (4) Bipolar disorder, current episode mixed, severe, with psychotic features (5) Impulse disorder, unspecified RHETT MATHEW MD Apr 04, 2021 22:18
--- NOTE | 2021-04-05 04:15 | NUR ---
Patient was alert, talking to herself, staff and peers and was slightly disoriented because she was out of her room in the hallway with no Oxygen on. Patient was reminded of the need to have her nasal Cannula on and she stated she did not need it. Nurse informed patient she may end up passing out and falling due to lack of oxygen and patient responded "until i pass out" She would intermittently walk the hallways for a little distance and while gasping for air after the exertion, she will be redirected into her room where she will accept to wear the oxygen for a little while until her saturation will go up to above 90% and she will take the nasal canula back off. Patient was compliant with only two of her night meds; Valporic Acid liquid and Zyprexa. She refused taking any of the other night time medications. She alternated between being snappy and pleasant with the staff, but still indicated she did not trust anyone. Patient finally retired to her room and remained in bed where she was resting with her eyes closed, alternating between having her nasal cannula on and off as she feels comfortable.
[2021-04-05 05:51] VITALS: BP 193/75
[2021-04-05] MEDS: IPRATROPIUM/ALBUTEROL 20/100mcg/INH INHALER. INH SCH ×4 (08:00→20:00)
[2021-04-05] MEDS: metFORMIN 500 MG TABLET PO SCH (08:00)
[2021-04-05] MEDS: FLUTICASONE FUROATE 100mcg/INH ELLIPTA INHALER. INH SCH (09:00)
[2021-04-05] MEDS: ASPIRIN CHEWABLE 81 MG TABLET. PO SCH (09:00)
[2021-04-05] MEDS: VENLAFAXINE 75 MG TABLET. PO SCH (09:00)
[2021-04-05] MEDS: risperiDONE ORAL 1 MG/ML 30ml BOTTLE. SL SCH (09:00)
[2021-04-05] MEDS: LISINOPRIL 5 MG TABLET. PO SCH (09:00)
[2021-04-05] MEDS: VALPROATE ACID 250 MG/5 ML ORAL SOLUTION PO SCH ×2 (09:00→20:22)
[2021-04-05] MEDS: amLODIPine BESYLATE 5 MG TABLET PO SCH (09:00)
--- NOTE | 2021-04-05 14:42 | NUR ---
Patient alert ambulating in room an hallway. Patient pulse ox down o 79 to 82 % patient was convinced to put on Oxygen at 2 l via nasal cannula. Patient's pulse ox up to 96%. Mos of day patient talked about her . Patient noncompliant with asking medication. Patient educated on the importance of her medication.Patient continue to refuse on this shift.
[2021-04-05 15:41] VITALS: BP 139/76
[2021-04-05] MEDS: MELATONIN 3 MG TABLET PO SCH (21:00)
[2021-04-05] MEDS: ATORVASTATIN CALCIUM 10 MG TABLET. PO SCH (21:00)
[2021-04-05] MEDS: LATANOPROST 0.005% OPHTH SOLUTION 2.5ML BOTTLE. OU SCH (21:00)
[2021-04-05] MEDS: MIRTAZAPINE 30 MG TABLET PO SCH (21:00)
--- NOTE | 2021-04-05 22:02 | PDOC ---
Exam Note: Jose Note: Please also refer to the separate dictated note~for this date of service dictated separately.~Patient seen individually. Discussed the patient with Nursing staff reviewed the chart.~Reviewed interim history and current functioning. Reviewed vital signs,~Labs/ Radiology~and current medications noted below. Continue current treatment with the changes noted in the dictated addendum note Assessment: Vital Signs/I&O: Vital Signs Date Time Temp Pulse Resp B/P (MAP) Pulse Ox O2 Delivery O2 Flow Rate FiO2 04/05/21 15:41 97.8 91 24 139/76 (97) 94 04/05/21 05:51 3.0 04/03/21 16:17 Room Air I & O 0 04/04/21 04/04/21 04/05/21 15:00 23:00 07:00 Intake Total 720 ml 480 ml Balance 720 ml 480 ml Labs: Laboratory Tests Test 04/05/21 07:44 Glucose (Fingerstick) 140 mg/dL (70-99) H Current Medications: Meds: Laboratory Tests Test 04/05/21 07:44 Glucose (Fingerstick) 140 mg/dL Current Medications Medications (Trade) Dose Ordered Sig/Denise Route PRN Reason Start Time Stop Time Status Last Admin Dose Admin Acetaminophen (Tylenol) 650 mg PRN Q6HRS PRN PO MILD PAIN / TEMP > 100.3'F 03/19/21 17:00 03/31/21 02:03 Multi-Ingredient Ointment (Analgesic [place]) 1 uzair PRN QID PRN TP MUSCLE PAIN 03/19/21 17:00 03/19/21 19:27 DC Al Hydroxide/Mg Hydroxide (Mylanta Plus Xs) 15 ml PRN AFTMEALHC PRN PO DYSPEPSIA 03/19/21 17:00 03/19/21 19:26 DC Magnesium Hydroxide (Milk Of Magnesia) 2,400 mg PRN QHS PRN PO CONSTIPATION 03/19/21 17:00 03/19/21 19:14 DC Acetaminophen (Tylenol) 650 mg PRN Q6HRS PRN PO PAIN/FEVER 03/19/21 18:15 Cancel Amlodipine Besylate (Norvasc) 5 mg DAILY PO 03/20/21 09:00 04/04/21 07:47 Aspirin (Aspirin Chewable) 81 mg DAILY PO 03/20/21 09:00 04/04/21 07:47 Divalproex Sodium (Depakote Sprinkles) 500 mg DAILY PO 03/20/21 09:00 03/21/21 16:33 DC 03/20/21 09:34 Latanoprost (Xalatan) 1 drop QHS OU 03/19/21 21:00 Lisinopril (Prinivil) 10 mg DAILY PO 03/20/21 09:00 03/19/21 19:19 DC Al Hydroxide/Mg Hydroxide (Mylanta Plus Xs) 15 ml PRN AFTMEALHC PRN PO HEARTBURN / GAS 03/19/21 18:15 Melatonin (Melatonin) 3 mg QHS PO 03/19/21 21:00 03/28/21 19:58 Mirtazapine (Remeron) 7.5 mg HS PO 03/19/21 21:00 03/19/21 22:33 DC Mirtazapine (Remeron) 30 mg QHS PO 03/19/21 21:00 03/28/21 19:58 Nicotine (Nicoderm Cq 14mg Patch) 1 patch DAILY TD 03/19/21 18:30 03/22/21 17:55 DC Olanzapine (ZyPREXA) 5 mg DAILY PO 03/20/21 09:00 03/23/21 16:47 DC 03/23/21 09:00 Olanzapine (ZyPREXA) 10 mg QHS PO 03/19/21 21:00 03/26/21 10:19 DC 03/25/21 20:11 Risperidone (RisperDAL) 2 mg DAILY PO 03/20/21 09:00 03/28/21 14:38 DC 03/28/21 08:00 Trazodone HCl (Desyrel) 50 mg PRN QHS PRN PO INSOMNIA 03/19/21 18:15 03/19/21 22:10 Non-Formulary Medication (Albuterol Sulfate (Proair Respiclick)) 1 puff Q6HRS PRN INH SHORTNESS OF BREATH 03/19/21 18:15 UNV Lisinopril (Prinivil) 5 mg DAILY PO 03/20/21 09:00 04/04/21 07:37 Non-Formulary Medication (Budesonide/ Formoterol Fumarate (Symbicort 160-4.5 Mcg Inhaler)) 2 puff BID IH 03/19/21 21:00 UNV Divalproex Sodium (Depakote Sprinkles) 500 mg HS PO 03/19/21 21:00 03/21/21 16:33 DC 03/20/21 20:49 Docusate Sodium (Colace) 100 mg BID PO 03/19/21 21:00 03/26/21 10:32 DC 03/25/21 20:12 Non-Formulary Medication (Latanoprost/Pf (Latanoprost 0.005% Eye Drop)) 1 drop QHS OU 03/19/21 21:00 UNV Magnesium Hydroxide (Milk Of Magnesia) 2,400 mg PRN DAILY PRN PO CONSTIPATION 03/19/21 19:15 03/29/21 13:23 Metformin HCl (Glucophage) 1,000 mg DAILYWBKFT PO 03/20/21 08:00 04/05/21 08:00 Multi-Ingredient Ointment (Analgesic [place]) 1 uzair PRN Q6HRS PRN TP MUSCLE PAIN 03/19/21 19:15 Atorvastatin Calcium (Lipitor) 5 mg QHS PO 03/19/21 21:00 03/28/21 19:58 Non-Formulary Medication (Pravastatin Sodium ) 20 mg DAILY PO 03/20/21 09:00 UNV Non-Formulary Medication (Tiotropium [place] (Spiriva)) 1 cap BID IH 03/19/21 21:00 UNV Non-Formulary Medication (Venlafaxine Hcl (Venlafaxine Hcl Er)) 37.5 mg DAILY PO 03/20/21 09:00 03/19/21 19:11 DC Venlafaxine HCl (Effexor Xr) 75 mg DAILY PO 03/20/21 09:00 03/22/21 17:33 DC 03/22/21 08:34 Albuterol/ Ipratropium (Duoneb) 3 ml RTQID NEB 03/19/21 20:00 03/20/21 07:59 DC Budesonide (Pulmicort) 0.5 mg RTBID NEB 03/19/21 20:00 03/21/21 08:08 DC Albuterol Sulfate (Ventolin) 2.5 mg PRN Q6HRS PRN NEB SHORTNESS OF BREATH 03/19/21 19:30 Cancel Albuterol/ Ipratropium (Combivent Respimat 20-100 Mcg) 1 puff RTQID INH 03/20/21 12:00 04/05/21 13:24 Fluticasone Furoate (ARNUITY 100mcg ELLIPTA) 1 puff DAILY INH 03/20/21 09:00 Albuterol Sulfate (Ventolin Hfa Inhaler) 1 puff PRN Q6HRS PRN INH SHORTNESS OF BREATH 03/20/21 09:00 Divalproex Sodium (Depakote Er) 1,000 mg QHS PO 03/21/21 21:00 03/22/21 21:48 DC Olanzapine (ZyPREXA ZYDIS) 2.5 mg PRN Q2HRS PRN PO PSYCHOSIS 03/21/21 16:30 Divalproex Sodium (Depakote Er) 250 mg QHS PO 03/21/21 21:00 03/22/21 21:48 DC Venlafaxine HCl (Effexor) 75 mg DAILY PO 03/23/21 09:00 04/04/21 07:37 Divalproex Sodium (Depakote Sprinkles) 1,250 mg HS PO 03/22/21 22:00 03/23/21 16:47 DC 03/22/21 22:00 Olanzapine (ZyPREXA) 10 mg DAILY PO 03/24/21 09:00 03/26/21 10:18 DC 03/25/21 08:11 Divalproex Sodium (Depakote Sprinkles) 500 mg DAILY PO 03/24/21 09:00 03/28/21 14:38 DC 03/28/21 08:00 Divalproex Sodium (Depakote Sprinkles) 750 mg HS PO 03/24/21 21:00 03/28/21 14:38 DC 03/27/21 20:38 Divalproex Sodium (Depakote Sprinkles) 1,250 mg HS PO 03/23/21 21:00 03/23/21 21:01 DC 03/23/21 20:10 Olanzapine (ZyPREXA) 10 mg BID PO 03/26/21 21:00 03/28/21 14:38 DC 03/28/21 07:57 Valproic Acid (Depakene) 500 mg DAILY PO 03/29/21 09:00 04/04/21 07:46 Valproic Acid (Depakene) 750 mg QHS PO 03/28/21 21:00 04/05/21 20:22 Risperidone (RisperDAL) 2 mg DAILY SL 03/29/21 09:00 04/04/21 07:48 Olanzapine (ZyPREXA ZYDIS) 10 mg BID PO 03/28/21 21:00 04/05/21 20:22 I have reviewed the current psychotropics carefully including drug interactions. Risk benefit ratio favors no change other than as noted in my dictated progress note. Diagnosis: Problems: (1) Schizoaffective disorder, bipolar type (2) Mild cognitive impairment (3) Anxiety disorder, unspecified (4) Bipolar disorder, current episode mixed, severe, with psychotic features (5) Impulse disorder, unspecified RHETT MATHEW MD Apr 05, 2021 22:02
--- NOTE | 2021-04-06 06:37 | NUR ---
Patient was alternating between her room and the hallway interacting with some staff and a few peers. She had some moments of verbal aggression towards staff and other moments she was needing more air due to rop in her oxygen that she was exerting more effort and gasping for air. Patient was educated and reminded about the need to keep her nasal cannula on, She acknowledged understanding but still kept the oxygen off intermittently. She was compliant with just two of her night meds {Valporic Acid and Zyprexa}, refusing to take the rest. Patient remained in her room and rested on her bed with eyes closed. At one point during the night, her oxygen dropped to thw low 70s and she was requested to put back her nasal cannula back. Patient placed the cannula back after some resistance and hr oxygen saturation increased to the low 90s
[2021-04-06] MEDS: IPRATROPIUM/ALBUTEROL 20/100mcg/INH INHALER. INH SCH ×4 (08:00→20:00)
--- NOTE | 2021-04-06 08:39 | PDOC ---
Exam Note: Jose Note: This note is a late entry for 04/04/2021 covers elements not covered in my initial note. Subjective: The patient was seen individually in the morning of 04/04/2021 for a treatment team meeting with Serina Calix, Indu Hunter (health and social care teacher), Marina, activity therapy and Nory CEBALLOS, discussed and reviewed the chart. The patient slept 3-1/2 hours previous night. Appetite 80%. The patient remains intermittently non-compliant with her medications. Oxygen sats appear stable nevertheless even at times with no oxygen supplement. Paranoia is improved and she is getting some more of her psychotropics on a consistent basis. Review of Systems: Shortness of breath on O2 supplements. No CV, , eye system symptoms on review. Mental Status Exam: The patient is oriented to herself. Speech coherent. Oft en responses monosyllabic. Abstraction fair. Computation impaired. Language function intact. Mood and affect withdrawn. No active suicidal or homicidal ideation. Laboratory Data: Reviewed. Impression: Schizoaffective disorder, bipolar type mixed with psychotic features. Anxiety disorder unspecified. Impulse control disorder unspecified. Plan: No change from initial note. I had lengthy discussion with the patient about her diagnoses, current medications, need for compliance. She was somewhat dismissive of some of this but agreed to take Zyprexa and Depakote at night. Assessment: Vital Signs/I&O: Vital Signs Date Time Temp Pulse Resp B/P (MAP) Pulse Ox O2 Delivery O2 Flow Rate FiO2 04/05/21 15:41 97.8 91 24 139/76 (97) 94 04/05/21 05:51 3.0 04/03/21 16:17 Room Air I & O 0 04/05/21 04/05/21 04/06/21 15:00 23:00 07:00 Intake Total 720 ml 480 ml Balance 720 ml 480 ml Labs: Laboratory Tests Test 04/06/21 07:40 Glucose (Fingerstick) 161 mg/dL (70-99) H Current Medications: Meds: Laboratory Tests Test 04/06/21 07:40 Glucose (Fingerstick) 161 mg/dL Current Medications Medications (Trade) Dose Ordered Sig/Denise Route PRN Reason Start Time Stop Time Status Last Admin Dose Admin Acetaminophen (Tylenol) 650 mg PRN Q6HRS PRN PO MILD PAIN / TEMP > 100.3'F 03/19/21 17:00 03/31/21 02:03 Multi-Ingredient Ointment (Analgesic [place]) 1 uzair PRN QID PRN TP MUSCLE PAIN 03/19/21 17:00 03/19/21 19:27 DC Al Hydroxide/Mg Hydroxide (Mylanta Plus Xs) 15 ml PRN AFTMEALHC PRN PO DYSPEPSIA 03/19/21 17:00 03/19/21 19:26 DC Magnesium Hydroxide (Milk Of Magnesia) 2,400 mg PRN QHS PRN PO CONSTIPATION 03/19/21 17:00 03/19/21 19:14 DC Acetaminophen (Tylenol) 650 mg PRN Q6HRS PRN PO PAIN/FEVER 03/19/21 18:15 Cancel Amlodipine Besylate (Norvasc) 5 mg DAILY PO 03/20/21 09:00 04/04/21 07:47 Aspirin (Aspirin Chewable) 81 mg DAILY PO 03/20/21 09:00 04/04/21 07:47 Divalproex Sodium (Depakote Sprinkles) 500 mg DAILY PO 03/20/21 09:00 03/21/21 16:33 DC 03/20/21 09:34 Latanoprost (Xalatan) 1 drop QHS OU 03/19/21 21:00 Lisinopril (Prinivil) 10 mg DAILY PO 03/20/21 09:00 03/19/21 19:19 DC Al Hydroxide/Mg Hydroxide (Mylanta Plus Xs) 15 ml PRN AFTMEALHC PRN PO HEARTBURN / GAS 03/19/21 18:15 Melatonin (Melatonin) 3 mg QHS PO 03/19/21 21:00 03/28/21 19:58 Mirtazapine (Remeron) 7.5 mg HS PO 03/19/21 21:00 03/19/21 22:33 DC Mirtazapine (Remeron) 30 mg QHS PO 03/19/21 21:00 03/28/21 19:58 Nicotine (Nicoderm Cq 14mg Patch) 1 patch DAILY TD 03/19/21 18:30 03/22/21 17:55 DC Olanzapine (ZyPREXA) 5 mg DAILY PO 03/20/21 09:00 03/23/21 16:47 DC 03/23/21 09:00 Olanzapine (ZyPREXA) 10 mg QHS PO 03/19/21 21:00 03/26/21 10:19 DC 03/25/21 20:11 Risperidone (RisperDAL) 2 mg DAILY PO 03/20/21 09:00 03/28/21 14:38 DC 03/28/21 08:00 Trazodone HCl (Desyrel) 50 mg PRN QHS PRN PO INSOMNIA 03/19/21 18:15 03/19/21 22:10 Non-Formulary Medication (Albuterol Sulfate (Proair Respiclick)) 1 puff Q6HRS PRN INH SHORTNESS OF BREATH 03/19/21 18:15 UNV Lisinopril (Prinivil) 5 mg DAILY PO 03/20/21 09:00 04/04/21 07:37 Non-Formulary Medication (Budesonide/ Formoterol Fumarate (Symbicort 160-4.5 Mcg Inhaler)) 2 puff BID IH 03/19/21 21:00 UNV Divalproex Sodium (Depakote Sprinkles) 500 mg HS PO 03/19/21 21:00 03/21/21 16:33 DC 03/20/21 20:49 Docusate Sodium (Colace) 100 mg BID PO 03/19/21 21:00 03/26/21 10:32 DC 03/25/21 20:12 Non-Formulary Medication (Latanoprost/Pf (Latanoprost 0.005% Eye Drop)) 1 drop QHS OU 03/19/21 21:00 UNV Magnesium Hydroxide (Milk Of Magnesia) 2,400 mg PRN DAILY PRN PO CONSTIPATION 03/19/21 19:15 03/29/21 13:23 Metformin HCl (Glucophage) 1,000 mg DAILYWBKFT PO 03/20/21 08:00 04/05/21 08:00 Multi-Ingredient Ointment (Analgesic [place]) 1 uzair PRN Q6HRS PRN TP MUSCLE PAIN 03/19/21 19:15 Atorvastatin Calcium (Lipitor) 5 mg QHS PO 03/19/21 21:00 03/28/21 19:58 Non-Formulary Medication (Pravastatin Sodium ) 20 mg DAILY PO 03/20/21 09:00 UNV Non-Formulary Medication (Tiotropium [place] (Spiriva)) 1 cap BID IH 03/19/21 21:00 UNV Non-Formulary Medication (Venlafaxine Hcl (Venlafaxine Hcl Er)) 37.5 mg DAILY PO 03/20/21 09:00 03/19/21 19:11 DC Venlafaxine HCl (Effexor Xr) 75 mg DAILY PO 03/20/21 09:00 03/22/21 17:33 DC 03/22/21 08:34 Albuterol/ Ipratropium (Duoneb) 3 ml RTQID NEB 03/19/21 20:00 03/20/21 07:59 DC Budesonide (Pulmicort) 0.5 mg RTBID NEB 03/19/21 20:00 03/21/21 08:08 DC Albuterol Sulfate (Ventolin) 2.5 mg PRN Q6HRS PRN NEB SHORTNESS OF BREATH 03/19/21 19:30 Cancel Albuterol/ Ipratropium (Combivent Respimat 20-100 Mcg) 1 puff RTQID INH 03/20/21 12:00 04/05/21 13:24 Fluticasone Furoate (ARNUITY 100mcg ELLIPTA) 1 puff DAILY INH 03/20/21 09:00 Albuterol Sulfate (Ventolin Hfa Inhaler) 1 puff PRN Q6HRS PRN INH SHORTNESS OF BREATH 03/20/21 09:00 Divalproex Sodium (Depakote Er) 1,000 mg QHS PO 03/21/21 21:00 03/22/21 21:48 DC Olanzapine (ZyPREXA ZYDIS) 2.5 mg PRN Q2HRS PRN PO PSYCHOSIS 03/21/21 16:30 Divalproex Sodium (Depakote Er) 250 mg QHS PO 03/21/21 21:00 03/22/21 21:48 DC Venlafaxine HCl (Effexor) 75 mg DAILY PO 03/23/21 09:00 04/04/21 07:37 Divalproex Sodium (Depakote Sprinkles) 1,250 mg HS PO 03/22/21 22:00 03/23/21 16:47 DC 03/22/21 22:00 Olanzapine (ZyPREXA) 10 mg DAILY PO 03/24/21 09:00 03/26/21 10:18 DC 03/25/21 08:11 Divalproex Sodium (Depakote Sprinkles) 500 mg DAILY PO 03/24/21 09:00 03/28/21 14:38 DC 03/28/21 08:00 Divalproex Sodium (Depakote Sprinkles) 750 mg HS PO 03/24/21 21:00 03/28/21 14:38 DC 03/27/21 20:38 Divalproex Sodium (Depakote Sprinkles) 1,250 mg HS PO 03/23/21 21:00 03/23/21 21:01 DC 03/23/21 20:10 Olanzapine (ZyPREXA) 10 mg BID PO 03/26/21 21:00 03/28/21 14:38 DC 03/28/21 07:57 Valproic Acid (Depakene) 500 mg DAILY PO 03/29/21 09:00 04/04/21 07:46 Valproic Acid (Depakene) 750 mg QHS PO 03/28/21 21:00 04/05/21 20:22 Risperidone (RisperDAL) 2 mg DAILY SL 03/29/21 09:00 04/04/21 07:48 Olanzapine (ZyPREXA ZYDIS) 10 mg BID PO 03/28/21 21:00 04/05/21 20:22 I have reviewed the current psychotropics carefully including drug interactions. Risk benefit ratio favors no change other than as noted in my dictated progress note. Diagnosis: Problems: (1) Schizoaffective disorder, bipolar type (2) Mild cognitive impairment (3) Anxiety disorder, unspecified (4) Bipolar disorder, current episode mixed, severe, with psychotic features (5) Impulse disorder, unspecified RHETT MATHEW MD Apr 06, 2021 08:39
[2021-04-06] MEDS: metFORMIN 500 MG TABLET PO SCH (08:41)
[2021-04-06] MEDS: LISINOPRIL 5 MG TABLET. PO SCH (08:41)
[2021-04-06] MEDS: ASPIRIN CHEWABLE 81 MG TABLET. PO SCH (08:44)
[2021-04-06] MEDS: VALPROATE ACID 250 MG/5 ML ORAL SOLUTION PO SCH ×2 (08:45→21:00)
[2021-04-06] MEDS: risperiDONE ORAL 1 MG/ML 30ml BOTTLE. SL SCH (08:48)
[2021-04-06] MEDS: VENLAFAXINE 75 MG TABLET. PO SCH (08:48)
[2021-04-06] MEDS: amLODIPine BESYLATE 5 MG TABLET PO SCH (08:48)
[2021-04-06] MEDS: FLUTICASONE FUROATE 100mcg/INH ELLIPTA INHALER. INH SCH (08:50)
--- NOTE | 2021-04-06 09:01 | PDOC ---
Exam Note: Jose Note: This note is a late entry for 04/05/2021 covers elements not covered in my initial note. Subjective: The patient was seen individually in the evening of 04/05/2021 with Magalis CEBALLOS, discussed and reviewed the chart. The patient slept 5 hours previous night. She removed her oxygen today. Oxygen sats dropped to the 70s and recovered once she put on 2 L in a minute. Taking her medications in Ensure. She is loud at times, refusing medications. Review of Systems: Shortness of breath on O2 supplements. No CV, , eye system symptoms on review. Mental Status Exam: The patient is oriented to herself. I met with her at some length in her room to improve her insight and compliance with medications. Speech coherent. Often responses monosyllabic. Abstraction fair. Computation impaired. Language function intact. Mood and affect withdrawn. No active suicidal or homicidal ideation. Laboratory Data: Reviewed. Impression: Schizoaffective disorder, bipolar type mixed with psychotic features. Anxiety disorder unspecified. Impulse control disorder unspecified. Plan: No change from initial note. Assessment: Vital Signs/I&O: Vital Signs Date Time Temp Pulse Resp B/P (MAP) Pulse Ox O2 Delivery O2 Flow Rate FiO2 04/06/21 08:48 91 139/76 04/05/21 15:41 97.8 24 94 04/05/21 05:51 3.0 04/03/21 16:17 Room Air I & O 04/05/21 04/05/21 04/06/21 15:00 23:00 07:00 Intake Total 720 ml 480 ml Balance 720 ml 480 ml Labs: Laboratory Tests Test 04/06/21 07:40 Glucose (Fingerstick) 161 mg/dL (70-99) H Current Medications: Meds: Laboratory Tests Test 04/06/21 07:40 Glucose (Fingerstick) 161 mg/dL Current Medications Medications (Trade) Dose Ordered Sig/Denise Route PRN Reason Start Time Stop Time Status Last Admin Dose Admin Acetaminophen (Tylenol) 650 mg PRN Q6HRS PRN PO MILD PAIN / TEMP > 100.3'F 03/19/21 17:00 03/31/21 02:03 Multi-Ingredient Ointment (Analgesic [place]) 1 uzair PRN QID PRN TP MUSCLE PAIN 03/19/21 17:00 03/19/21 19:27 DC Al Hydroxide/Mg Hydroxide (Mylanta Plus Xs) 15 ml PRN AFTMEALHC PRN PO DYSPEPSIA 03/19/21 17:00 03/19/21 19:26 DC Magnesium Hydroxide (Milk Of Magnesia) 2,400 mg PRN QHS PRN PO CONSTIPATION 03/19/21 17:00 03/19/21 19:14 DC Acetaminophen (Tylenol) 650 mg PRN Q6HRS PRN PO PAIN/FEVER 03/19/21 18:15 Cancel Amlodipine Besylate (Norvasc) 5 mg DAILY PO 03/20/21 09:00 04/06/21 08:48 Aspirin (Aspirin Chewable) 81 mg DAILY PO 03/20/21 09:00 04/06/21 08:44 Divalproex Sodium (Depakote Sprinkles) 500 mg DAILY PO 03/20/21 09:00 03/21/21 16:33 DC 03/20/21 09:34 Latanoprost (Xalatan) 1 drop QHS OU 03/19/21 21:00 Lisinopril (Prinivil) 10 mg DAILY PO 03/20/21 09:00 03/19/21 19:19 DC Al Hydroxide/Mg Hydroxide (Mylanta Plus Xs) 15 ml PRN AFTMEALHC PRN PO HEARTBURN / GAS 03/19/21 18:15 Melatonin (Melatonin) 3 mg QHS PO 03/19/21 21:00 03/28/21 19:58 Mirtazapine (Remeron) 7.5 mg HS PO 03/19/21 21:00 03/19/21 22:33 DC Mirtazapine (Remeron) 30 mg QHS PO 03/19/21 21:00 03/28/21 19:58 Nicotine (Nicoderm Cq 14mg Patch) 1 patch DAILY TD 03/19/21 18:30 03/22/21 17:55 DC Olanzapine (ZyPREXA) 5 mg DAILY PO 03/20/21 09:00 03/23/21 16:47 DC 03/23/21 09:00 Olanzapine (ZyPREXA) 10 mg QHS PO 03/19/21 21:00 03/26/21 10:19 DC 03/25/21 20:11 Risperidone (RisperDAL) 2 mg DAILY PO 03/20/21 09:00 03/28/21 14:38 DC 03/28/21 08:00 Trazodone HCl (Desyrel) 50 mg PRN QHS PRN PO INSOMNIA 03/19/21 18:15 03/19/21 22:10 Non-Formulary Medication (Albuterol Sulfate (Proair Respiclick)) 1 puff Q6HRS PRN INH SHORTNESS OF BREATH 03/19/21 18:15 UNV Lisinopril (Prinivil) 5 mg DAILY PO 03/20/21 09:00 04/06/21 08:41 Non-Formulary Medication (Budesonide/ Formoterol Fumarate (Symbicort 160-4.5 Mcg Inhaler)) 2 puff BID IH 03/19/21 21:00 UNV Divalproex Sodium (Depakote Sprinkles) 500 mg HS PO 03/19/21 21:00 03/21/21 16:33 DC 03/20/21 20:49 Docusate Sodium (Colace) 100 mg BID PO 03/19/21 21:00 03/26/21 10:32 DC 03/25/21 20:12 Non-Formulary Medication (Latanoprost/Pf (Latanoprost 0.005% Eye Drop)) 1 drop QHS OU 03/19/21 21:00 UNV Magnesium Hydroxide (Milk Of Magnesia) 2,400 mg PRN DAILY PRN PO CONSTIPATION 03/19/21 19:15 03/29/21 13:23 Metformin HCl (Glucophage) 1,000 mg DAILYWBKFT PO 03/20/21 08:00 04/06/21 08:41 Multi-Ingredient Ointment (Analgesic [place]) 1 uzair PRN Q6HRS PRN TP MUSCLE PAIN 03/19/21 19:15 Atorvastatin Calcium (Lipitor) 5 mg QHS PO 03/19/21 21:00 03/28/21 19:58 Non-Formulary Medication (Pravastatin Sodium ) 20 mg DAILY PO 03/20/21 09:00 UNV Non-Formulary Medication (Tiotropium [place] (Spiriva)) 1 cap BID IH 03/19/21 21:00 UNV Non-Formulary Medication (Venlafaxine Hcl (Venlafaxine Hcl Er)) 37.5 mg DAILY PO 03/20/21 09:00 03/19/21 19:11 DC Venlafaxine HCl (Effexor Xr) 75 mg DAILY PO 03/20/21 09:00 03/22/21 17:33 DC 03/22/21 08:34 Albuterol/ Ipratropium (Duoneb) 3 ml RTQID NEB 03/19/21 20:00 03/20/21 07:59 DC Budesonide (Pulmicort) 0.5 mg RTBID NEB 03/19/21 20:00 03/21/21 08:08 DC Albuterol Sulfate (Ventolin) 2.5 mg PRN Q6HRS PRN NEB SHORTNESS OF BREATH 03/19/21 19:30 Cancel Albuterol/ Ipratropium (Combivent Respimat 20-100 Mcg) 1 puff RTQID INH 03/20/21 12:00 04/05/21 13:24 Fluticasone Furoate (ARNUITY 100mcg ELLIPTA) 1 puff DAILY INH 03/20/21 09:00 Albuterol Sulfate (Ventolin Hfa Inhaler) 1 puff PRN Q6HRS PRN INH SHORTNESS OF BREATH 03/20/21 09:00 Divalproex Sodium (Depakote Er) 1,000 mg QHS PO 03/21/21 21:00 03/22/21 21:48 DC Olanzapine (ZyPREXA ZYDIS) 2.5 mg PRN Q2HRS PRN PO PSYCHOSIS 03/21/21 16:30 Divalproex Sodium (Depakote Er) 250 mg QHS PO 03/21/21 21:00 03/22/21 21:48 DC Venlafaxine HCl (Effexor) 75 mg DAILY PO 03/23/21 09:00 04/06/21 08:48 Divalproex Sodium (Depakote Sprinkles) 1,250 mg HS PO 03/22/21 22:00 03/23/21 16:47 DC 03/22/21 22:00 Olanzapine (ZyPREXA) 10 mg DAILY PO 03/24/21 09:00 03/26/21 10:18 DC 03/25/21 08:11 Divalproex Sodium (Depakote Sprinkles) 500 mg DAILY PO 03/24/21 09:00 03/28/21 14:38 DC 03/28/21 08:00 Divalproex Sodium (Depakote Sprinkles) 750 mg HS PO 03/24/21 21:00 03/28/21 14:38 DC 03/27/21 20:38 Divalproex Sodium (Depakote Sprinkles) 1,250 mg HS PO 03/23/21 21:00 03/23/21 21:01 DC 03/23/21 20:10 Olanzapine (ZyPREXA) 10 mg BID PO 03/26/21 21:00 03/28/21 14:38 DC 03/28/21 07:57 Valproic Acid (Depakene) 500 mg DAILY PO 03/29/21 09:00 04/06/21 08:45 Valproic Acid (Depakene) 750 mg QHS PO 03/28/21 21:00 04/05/21 20:22 Risperidone (RisperDAL) 2 mg DAILY SL 03/29/21 09:00 04/06/21 08:48 Olanzapine (ZyPREXA ZYDIS) 10 mg BID PO 03/28/21 21:00 04/06/21 08:44 I have reviewed the current psychotropics carefully including drug interactions. Risk benefit ratio favors no change other than as noted in my dictated progress note. Diagnosis: Problems: (1) Schizoaffective disorder, bipolar type (2) Mild cognitive impairment (3) Anxiety disorder, unspecified (4) Bipolar disorder, current episode mixed, severe, with psychotic features (5) Impulse disorder, unspecified RHETT MATHEW MD Apr 06, 2021 09:01
--- NOTE | 2021-04-06 13:14 | NUR ---
Patient out of her room more today, socializing with patients in day room and meal time. Tex refused certain medication but will only take 1 tablet of metformin, Effexor, and lisinopril. She also refused all inhalers.Patient educated on what the other medication are for,, she verbal aggressive with nursing staff. Pulse ox at 90% on room air.
[2021-04-06 15:52] VITALS: BP 143/84
--- NOTE | 2021-04-06 15:54 | NUR ---
Placement updates: [facility] -- denied, cannot accept with [facility] -- considering [facility] ([place]) -- denied, clinically deny due to agitation and aggression [facility] [place] -- denied, need a geriatric psych unit [facility] -- considering [facility] -- denied, no beds for the next couple of weeks [facility] -- considering
[2021-04-06] MEDS: MELATONIN 3 MG TABLET PO SCH (20:58)
[2021-04-06] MEDS: ATORVASTATIN CALCIUM 10 MG TABLET. PO SCH (21:00)
[2021-04-06] MEDS: LATANOPROST 0.005% OPHTH SOLUTION 2.5ML BOTTLE. OU SCH (21:00)
[2021-04-06] MEDS: MIRTAZAPINE 30 MG TABLET PO SCH (21:00)
--- NOTE | 2021-04-06 21:10 | NUR ---
Pt was in day room for awhile and has been in her room since. She refused meds except for her melatonin said she doesn't know why we keep trying to give her all that stuff. She also said she is going to be leaving tomorrow.
--- NOTE | 2021-04-06 22:30 | PDOC ---
Exam Note: Jose Note: Please also refer to the separate dictated note~for this date of service dictated separately.~Patient seen individually. Discussed the patient with Nursing staff reviewed the chart.~Reviewed interim history and current functioning. Reviewed vital signs,~Labs/ Radiology~and current medications noted below. Continue current treatment with the changes noted in the dictated addendum note Assessment: Vital Signs/I&O: Vital Signs Date Time Temp Pulse Resp B/P (MAP) Pulse Ox O2 Delivery O2 Flow Rate FiO2 04/06/21 15:52 97.8 101 20 143/84 (103) 89 04/05/21 05:51 3.0 04/03/21 16:17 Room Air I & O 04/05/21 04/05/21 04/06/21 15:00 23:00 07:00 Intake Total 720 ml 480 ml Balance 720 ml 480 ml Labs: Laboratory Tests Test 04/06/21 07:40 Glucose (Fingerstick) 161 mg/dL (70-99) H Current Medications: Meds: Laboratory Tests Test 04/06/21 07:40 Glucose (Fingerstick) 161 mg/dL Current Medications Medications (Trade) Dose Ordered Sig/Denise Route PRN Reason Start Time Stop Time Status Last Admin Dose Admin Acetaminophen (Tylenol) 650 mg PRN Q6HRS PRN PO MILD PAIN / TEMP > 100.3'F 03/19/21 17:00 03/31/21 02:03 Multi-Ingredient Ointment (Analgesic [place]) 1 uzair PRN QID PRN TP MUSCLE PAIN 03/19/21 17:00 03/19/21 19:27 DC Al Hydroxide/Mg Hydroxide (Mylanta Plus Xs) 15 ml PRN AFTMEALHC PRN PO DYSPEPSIA 03/19/21 17:00 03/19/21 19:26 DC Magnesium Hydroxide (Milk Of Magnesia) 2,400 mg PRN QHS PRN PO CONSTIPATION 03/19/21 17:00 03/19/21 19:14 DC Acetaminophen (Tylenol) 650 mg PRN Q6HRS PRN PO PAIN/FEVER 03/19/21 18:15 Cancel Amlodipine Besylate (Norvasc) 5 mg DAILY PO 03/20/21 09:00 04/06/21 08:48 Aspirin (Aspirin Chewable) 81 mg DAILY PO 03/20/21 09:00 04/06/21 08:44 Divalproex Sodium (Depakote Sprinkles) 500 mg DAILY PO 03/20/21 09:00 03/21/21 16:33 DC 03/20/21 09:34 Latanoprost (Xalatan) 1 drop QHS OU 03/19/21 21:00 Lisinopril (Prinivil) 10 mg DAILY PO 03/20/21 09:00 03/19/21 19:19 DC Al Hydroxide/Mg Hydroxide (Mylanta Plus Xs) 15 ml PRN AFTMEALHC PRN PO HEARTBURN / GAS 03/19/21 18:15 Melatonin (Melatonin) 3 mg QHS PO 03/19/21 21:00 04/06/21 20:58 Mirtazapine (Remeron) 7.5 mg HS PO 03/19/21 21:00 03/19/21 22:33 DC Mirtazapine (Remeron) 30 mg QHS PO 03/19/21 21:00 03/28/21 19:58 Nicotine (Nicoderm Cq 14mg Patch) 1 patch DAILY TD 03/19/21 18:30 03/22/21 17:55 DC Olanzapine (ZyPREXA) 5 mg DAILY PO 03/20/21 09:00 03/23/21 16:47 DC 03/23/21 09:00 Olanzapine (ZyPREXA) 10 mg QHS PO 03/19/21 21:00 03/26/21 10:19 DC 03/25/21 20:11 Risperidone (RisperDAL) 2 mg DAILY PO 03/20/21 09:00 03/28/21 14:38 DC 03/28/21 08:00 Trazodone HCl (Desyrel) 50 mg PRN QHS PRN PO INSOMNIA 03/19/21 18:15 03/19/21 22:10 Non-Formulary Medication (Albuterol Sulfate (Proair Respiclick)) 1 puff Q6HRS PRN INH SHORTNESS OF BREATH 03/19/21 18:15 UNV Lisinopril (Prinivil) 5 mg DAILY PO 03/20/21 09:00 04/06/21 08:41 Non-Formulary Medication (Budesonide/ Formoterol Fumarate (Symbicort 160-4.5 Mcg Inhaler)) 2 puff BID IH 03/19/21 21:00 UNV Divalproex Sodium (Depakote Sprinkles) 500 mg HS PO 03/19/21 21:00 03/21/21 16:33 DC 03/20/21 20:49 Docusate Sodium (Colace) 100 mg BID PO 03/19/21 21:00 03/26/21 10:32 DC 03/25/21 20:12 Non-Formulary Medication (Latanoprost/Pf (Latanoprost 0.005% Eye Drop)) 1 drop QHS OU 03/19/21 21:00 UNV Magnesium Hydroxide (Milk Of Magnesia) 2,400 mg PRN DAILY PRN PO CONSTIPATION 03/19/21 19:15 03/29/21 13:23 Metformin HCl (Glucophage) 1,000 mg DAILYWBKFT PO 03/20/21 08:00 04/06/21 08:41 Multi-Ingredient Ointment (Analgesic [place]) 1 uzair PRN Q6HRS PRN TP MUSCLE PAIN 03/19/21 19:15 Atorvastatin Calcium (Lipitor) 5 mg QHS PO 03/19/21 21:00 03/28/21 19:58 Non-Formulary Medication (Pravastatin Sodium ) 20 mg DAILY PO 03/20/21 09:00 UNV Non-Formulary Medication (Tiotropium [place] (Spiriva)) 1 cap BID IH 03/19/21 21:00 UNV Non-Formulary Medication (Venlafaxine Hcl (Venlafaxine Hcl Er)) 37.5 mg DAILY PO 03/20/21 09:00 03/19/21 19:11 DC Venlafaxine HCl (Effexor Xr) 75 mg DAILY PO 03/20/21 09:00 03/22/21 17:33 DC 03/22/21 08:34 Albuterol/ Ipratropium (Duoneb) 3 ml RTQID NEB 03/19/21 20:00 03/20/21 07:59 DC Budesonide (Pulmicort) 0.5 mg RTBID NEB 03/19/21 20:00 03/21/21 08:08 DC Albuterol Sulfate (Ventolin) 2.5 mg PRN Q6HRS PRN NEB SHORTNESS OF BREATH 03/19/21 19:30 Cancel Albuterol/ Ipratropium (Combivent Respimat 20-100 Mcg) 1 puff RTQID INH 03/20/21 12:00 04/05/21 13:24 Fluticasone Furoate (ARNUITY 100mcg ELLIPTA) 1 puff DAILY INH 03/20/21 09:00 Albuterol Sulfate (Ventolin Hfa Inhaler) 1 puff PRN Q6HRS PRN INH SHORTNESS OF BREATH 03/20/21 09:00 Divalproex Sodium (Depakote Er) 1,000 mg QHS PO 03/21/21 21:00 03/22/21 21:48 DC Olanzapine (ZyPREXA ZYDIS) 2.5 mg PRN Q2HRS PRN PO PSYCHOSIS 03/21/21 16:30 Divalproex Sodium (Depakote Er) 250 mg QHS PO 03/21/21 21:00 03/22/21 21:48 DC Venlafaxine HCl (Effexor) 75 mg DAILY PO 03/23/21 09:00 04/06/21 08:48 Divalproex Sodium (Depakote Sprinkles) 1,250 mg HS PO 03/22/21 22:00 03/23/21 16:47 DC 03/22/21 22:00 Olanzapine (ZyPREXA) 10 mg DAILY PO 03/24/21 09:00 03/26/21 10:18 DC 03/25/21 08:11 Divalproex Sodium (Depakote Sprinkles) 500 mg DAILY PO 03/24/21 09:00 03/28/21 14:38 DC 03/28/21 08:00 Divalproex Sodium (Depakote Sprinkles) 750 mg HS PO 03/24/21 21:00 03/28/21 14:38 DC 03/27/21 20:38 Divalproex Sodium (Depakote Sprinkles) 1,250 mg HS PO 03/23/21 21:00 03/23/21 21:01 DC 03/23/21 20:10 Olanzapine (ZyPREXA) 10 mg BID PO 03/26/21 21:00 03/28/21 14:38 DC 03/28/21 07:57 Valproic Acid (Depakene) 500 mg DAILY PO 03/29/21 09:00 04/06/21 16:40 DC 04/06/21 08:45 Valproic Acid (Depakene) 750 mg QHS PO 03/28/21 21:00 04/06/21 16:40 DC 04/05/21 20:22 Risperidone (RisperDAL) 2 mg DAILY SL 03/29/21 09:00 04/06/21 08:48 Olanzapine (ZyPREXA ZYDIS) 10 mg BID PO 03/28/21 21:00 04/06/21 16:42 DC 04/06/21 08:44 Valproic Acid (Depakene) 1,250 mg QHS PO 04/07/21 21:00 04/06/21 19:41 DC Olanzapine (ZyPREXA ZYDIS) 20 mg DAILY PO 04/07/21 09:00 Valproic Acid (Depakene) 1,250 mg QHS PO 04/06/21 21:00 I have reviewed the current psychotropics carefully including drug interactions. Risk benefit ratio favors no change other than as noted in my dictated progress note. Diagnosis: Problems: (1) Schizoaffective disorder, bipolar type (2) Mild cognitive impairment (3) Anxiety disorder, unspecified (4) Bipolar disorder, current episode mixed, severe, with psychotic features (5) Impulse disorder, unspecified RHETT MATHEW MD Apr 06, 2021 22:30
[2021-04-07] MEDS: ACETAMINOPHEN 325 MG TABLET PO PRN (00:50)
--- NOTE | 2021-04-07 01:00 | NUR ---
PRN tylenol given for pain of swollen area around left eye. Ice bag also provided. Pt has not been slept tonight PRN for sleep offered and pt declined.
--- NOTE | 2021-04-07 04:30 | NUR ---
Pt has been sleeping, now reports no facial pain.
[2021-04-07 05:55] VITALS: BP 173/71
[2021-04-07] MEDS: IPRATROPIUM/ALBUTEROL 20/100mcg/INH INHALER. INH SCH ×4 (08:00→20:00)
[2021-04-07] MEDS: amLODIPine BESYLATE 5 MG TABLET PO SCH (09:00)
[2021-04-07] MEDS: risperiDONE ORAL 1 MG/ML 30ml BOTTLE. SL SCH (09:00)
[2021-04-07] MEDS: FLUTICASONE FUROATE 100mcg/INH ELLIPTA INHALER. INH SCH (09:00)
[2021-04-07] MEDS: ASPIRIN CHEWABLE 81 MG TABLET. PO SCH (09:00)
[2021-04-07] MEDS: VENLAFAXINE 75 MG TABLET. PO SCH (09:34)
[2021-04-07] MEDS: metFORMIN 500 MG TABLET PO SCH (09:35)
[2021-04-07] MEDS: LISINOPRIL 5 MG TABLET. PO SCH (09:35)
--- NOTE | 2021-04-07 15:04 | NUR ---
SW completed concurrent review with [employer] customer account representative who will review the case and get back to SW with an answer for either a denial or approval for continued stay.
[2021-04-07 15:59] VITALS: BP 121/56
--- NOTE | 2021-04-07 18:22 | NUR ---
Patient has been irritable, resistive to medications, withdrawn to her room, and demanding throughout this shift. Morning zyprexa and risperdal provided hidden in Ensure. Will continue to monitor and report to MD.
[2021-04-07] MEDS: VALPROATE ACID 250 MG/5 ML ORAL SOLUTION PO SCH (20:49)
[2021-04-07] MEDS: MELATONIN 3 MG TABLET PO SCH (20:52)
[2021-04-07] MEDS: ATORVASTATIN CALCIUM 10 MG TABLET. PO SCH (20:58)
[2021-04-07] MEDS: LATANOPROST 0.005% OPHTH SOLUTION 2.5ML BOTTLE. OU SCH (20:58)
[2021-04-07] MEDS: MIRTAZAPINE 30 MG TABLET PO SCH (20:59)
[2021-04-07] MEDS ORDERED: VALPROATE ACID 250 MG/5 ML ORAL SOLUTION PO SCH (21:00)
--- NOTE | 2021-04-07 22:08 | PDOC ---
Exam Note: Jose Note: Please also refer to the separate dictated note~for this date of service dictated separately.~Patient seen individually. Discussed the patient with Nursing staff reviewed the chart.~Reviewed interim history and current functioning. Reviewed vital signs,~Labs/ Radiology~and current medications noted below. Continue current treatment with the changes noted in the dictated addendum note Assessment: Vital Signs/I&O: Vital Signs Date Time Temp Pulse Resp B/P (MAP) Pulse Ox O2 Delivery O2 Flow Rate FiO2 04/07/21 15:59 97.2 102 24 121/56 (77) 96 04/07/21 05:55 3.0 04/03/21 16:17 Room Air I & O 04/06/21 04/06/21 04/07/21 15:00 23:00 07:00 Intake Total 720 ml 360 ml 120 ml Balance 720 ml 360 ml 120 ml Labs: Laboratory Tests Test 04/07/21 07:49 Glucose (Fingerstick) 131 mg/dL (70-99) H Current Medications: Meds: Laboratory Tests Test 04/07/21 07:49 Glucose (Fingerstick) 131 mg/dL Current Medications Medications (Trade) Dose Ordered Sig/Denise Route PRN Reason Start Time Stop Time Status Last Admin Dose Admin Acetaminophen (Tylenol) 650 mg PRN Q6HRS PRN PO MILD PAIN / TEMP > 100.3'F 03/19/21 17:00 04/07/21 00:50 Multi-Ingredient Ointment (Analgesic [place]) 1 uzair PRN QID PRN TP MUSCLE PAIN 03/19/21 17:00 03/19/21 19:27 DC Al Hydroxide/Mg Hydroxide (Mylanta Plus Xs) 15 ml PRN AFTMEALHC PRN PO DYSPEPSIA 03/19/21 17:00 03/19/21 19:26 DC Magnesium Hydroxide (Milk Of Magnesia) 2,400 mg PRN QHS PRN PO CONSTIPATION 03/19/21 17:00 03/19/21 19:14 DC Acetaminophen (Tylenol) 650 mg PRN Q6HRS PRN PO PAIN/FEVER 03/19/21 18:15 Cancel Amlodipine Besylate (Norvasc) 5 mg DAILY PO 03/20/21 09:00 04/06/21 08:48 Aspirin (Aspirin Chewable) 81 mg DAILY PO 03/20/21 09:00 04/06/21 08:44 Divalproex Sodium (Depakote Sprinkles) 500 mg DAILY PO 03/20/21 09:00 03/21/21 16:33 DC 03/20/21 09:34 Latanoprost (Xalatan) 1 drop QHS OU 03/19/21 21:00 Lisinopril (Prinivil) 10 mg DAILY PO 03/20/21 09:00 03/19/21 19:19 DC Al Hydroxide/Mg Hydroxide (Mylanta Plus Xs) 15 ml PRN AFTMEALHC PRN PO HEARTBURN / GAS 03/19/21 18:15 Melatonin (Melatonin) 3 mg QHS PO 03/19/21 21:00 04/07/21 20:52 Mirtazapine (Remeron) 7.5 mg HS PO 03/19/21 21:00 03/19/21 22:33 DC Mirtazapine (Remeron) 30 mg QHS PO 03/19/21 21:00 03/28/21 19:58 Nicotine (Nicoderm Cq 14mg Patch) 1 patch DAILY TD 03/19/21 18:30 03/22/21 17:55 DC Olanzapine (ZyPREXA) 5 mg DAILY PO 03/20/21 09:00 03/23/21 16:47 DC 03/23/21 09:00 Olanzapine (ZyPREXA) 10 mg QHS PO 03/19/21 21:00 03/26/21 10:19 DC 03/25/21 20:11 Risperidone (RisperDAL) 2 mg DAILY PO 03/20/21 09:00 03/28/21 14:38 DC 03/28/21 08:00 Trazodone HCl (Desyrel) 50 mg PRN QHS PRN PO INSOMNIA 03/19/21 18:15 03/19/21 22:10 Non-Formulary Medication (Albuterol Sulfate (Proair Respiclick)) 1 puff Q6HRS PRN INH SHORTNESS OF BREATH 03/19/21 18:15 UNV Lisinopril (Prinivil) 5 mg DAILY PO 03/20/21 09:00 04/07/21 09:35 Non-Formulary Medication (Budesonide/ Formoterol Fumarate (Symbicort 160-4.5 Mcg Inhaler)) 2 puff BID IH 03/19/21 21:00 UNV Divalproex Sodium (Depakote Sprinkles) 500 mg HS PO 03/19/21 21:00 03/21/21 16:33 DC 03/20/21 20:49 Docusate Sodium (Colace) 100 mg BID PO 03/19/21 21:00 03/26/21 10:32 DC 03/25/21 20:12 Non-Formulary Medication (Latanoprost/Pf (Latanoprost 0.005% Eye Drop)) 1 drop QHS OU 03/19/21 21:00 UNV Magnesium Hydroxide (Milk Of Magnesia) 2,400 mg PRN DAILY PRN PO CONSTIPATION 03/19/21 19:15 03/29/21 13:23 Metformin HCl (Glucophage) 1,000 mg DAILYWBKFT PO 03/20/21 08:00 04/07/21 09:35 Multi-Ingredient Ointment (Analgesic [place]) 1 uzair PRN Q6HRS PRN TP MUSCLE PAIN 03/19/21 19:15 Atorvastatin Calcium (Lipitor) 5 mg QHS PO 03/19/21 21:00 03/28/21 19:58 Non-Formulary Medication (Pravastatin Sodium ) 20 mg DAILY PO 03/20/21 09:00 UNV Non-Formulary Medication (Tiotropium [place] (Spiriva)) 1 cap BID IH 03/19/21 21:00 UNV Non-Formulary Medication (Venlafaxine Hcl (Venlafaxine Hcl Er)) 37.5 mg DAILY PO 03/20/21 09:00 03/19/21 19:11 DC Venlafaxine HCl (Effexor Xr) 75 mg DAILY PO 03/20/21 09:00 03/22/21 17:33 DC 03/22/21 08:34 Albuterol/ Ipratropium (Duoneb) 3 ml RTQID NEB 03/19/21 20:00 03/20/21 07:59 DC Budesonide (Pulmicort) 0.5 mg RTBID NEB 03/19/21 20:00 03/21/21 08:08 DC Albuterol Sulfate (Ventolin) 2.5 mg PRN Q6HRS PRN NEB SHORTNESS OF BREATH 03/19/21 19:30 Cancel Albuterol/ Ipratropium (Combivent Respimat 20-100 Mcg) 1 puff RTQID INH 03/20/21 12:00 04/05/21 13:24 Fluticasone Furoate (ARNUITY 100mcg ELLIPTA) 1 puff DAILY INH 03/20/21 09:00 Albuterol Sulfate (Ventolin Hfa Inhaler) 1 puff PRN Q6HRS PRN INH SHORTNESS OF BREATH 03/20/21 09:00 Divalproex Sodium (Depakote Er) 1,000 mg QHS PO 03/21/21 21:00 03/22/21 21:48 DC Olanzapine (ZyPREXA ZYDIS) 2.5 mg PRN Q2HRS PRN PO PSYCHOSIS 03/21/21 16:30 Divalproex Sodium (Depakote Er) 250 mg QHS PO 03/21/21 21:00 03/22/21 21:48 DC Venlafaxine HCl (Effexor) 75 mg DAILY PO 03/23/21 09:00 04/07/21 09:34 Divalproex Sodium (Depakote Sprinkles) 1,250 mg HS PO 03/22/21 22:00 03/23/21 16:47 DC 03/22/21 22:00 Olanzapine (ZyPREXA) 10 mg DAILY PO 03/24/21 09:00 03/26/21 10:18 DC 03/25/21 08:11 Divalproex Sodium (Depakote Sprinkles) 500 mg DAILY PO 03/24/21 09:00 03/28/21 14:38 DC 03/28/21 08:00 Divalproex Sodium (Depakote Sprinkles) 750 mg HS PO 03/24/21 21:00 03/28/21 14:38 DC 03/27/21 20:38 Divalproex Sodium (Depakote Sprinkles) 1,250 mg HS PO 03/23/21 21:00 03/23/21 21:01 DC 03/23/21 20:10 Olanzapine (ZyPREXA) 10 mg BID PO 03/26/21 21:00 03/28/21 14:38 DC 03/28/21 07:57 Valproic Acid (Depakene) 500 mg DAILY PO 03/29/21 09:00 04/06/21 16:40 DC 04/06/21 08:45 Valproic Acid (Depakene) 750 mg QHS PO 03/28/21 21:00 04/06/21 16:40 DC 04/05/21 20:22 Risperidone (RisperDAL) 2 mg DAILY SL 03/29/21 09:00 04/07/21 09:00 Olanzapine (ZyPREXA ZYDIS) 10 mg BID PO 03/28/21 21:00 04/06/21 16:42 DC 04/06/21 08:44 Valproic Acid (Depakene) 1,250 mg QHS PO 04/07/21 21:00 04/06/21 19:41 DC Olanzapine (ZyPREXA ZYDIS) 20 mg DAILY PO 04/07/21 09:00 04/07/21 09:00 Valproic Acid (Depakene) 1,250 mg QHS PO 04/06/21 21:00 04/07/21 20:49 Current Medications Medications (Trade) Dose Ordered Sig/Denise Route PRN Reason Start Time Stop Time Status Last Admin Dose Admin Olanzapine (ZyPREXA ZYDIS) 20 mg DAILY PO 04/07/21 09:00 04/07/21 09:00 I have reviewed the current psychotropics carefully including drug interactions. Risk benefit ratio favors no change other than as noted in my dictated progress note. Diagnosis: Problems: (1) Schizoaffective disorder, bipolar type (2) Mild cognitive impairment (3) Anxiety disorder, unspecified (4) Bipolar disorder, current episode mixed, severe, with psychotic features (5) Impulse disorder, unspecified RHETT MATHEW MD Apr 07, 2021 22:08
--- NOTE | 2021-04-08 02:31 | NUR ---
Patient was alternating between her room the hallways and the day perkins, without her oxygen for the most part. She was noticeably gasping for air and was reminded by nurse about the need for her to keep her oxygen on. Patient was also educated on carrying her rollable oxygen tank when walking around. Patient declined the oxygen tank and remained in the day perkins eating ice cream and other snacks. Patient took just 2 of her night meds, declining the rest. She eventually returned to her room and put her oxygen on, helped herself to bed where she is currentlly resting with eyes closed, breathing normally.
[2021-04-08 07:05] VITALS: BP 164/76
[2021-04-08] MEDS: IPRATROPIUM/ALBUTEROL 20/100mcg/INH INHALER. INH SCH ×3 (08:00→16:00)
[2021-04-08] MEDS: VENLAFAXINE 75 MG TABLET. PO SCH (08:51)
[2021-04-08] MEDS: metFORMIN 500 MG TABLET PO SCH (08:51)
--- NOTE | 2021-04-08 08:57 | PDOC ---
Exam Note: Jose Note: This note is a late entry for 04/06/2021 covers elements not covered in my initial note. Subjective: The patient was seen individually in the evening of 04/06/2021 with Magalis CEBALLOS, discussed and reviewed the chart. The patient slept 5-1/2 hours previous night. She remains intermittently compliant with her medications. She took her metformin and Effexor, lisinopril, and states she lonely take Zyprexa and Depakote. I had lengthy discussion with her and she changes her mind about this but for now just wants the Depakote and Zyprexa. We will consolidate the [place] of Zyprexa giving the entire 20 mg at night and give her the full dosage of Depakote at night as well. Review of Systems: Shortness of breath on O2 supplements. No CV, , eye system symptoms on review. Mental Status Exam: The patient is oriented to herself. She is quite verbal, forthcoming. Speech coherent. She talked about her prior admissions to [facility], somewhat distractible, anxious. Abstraction fair. Computation impaired. Language function intact. Mood and affect withdrawn. No active suicidal or homicidal ideation. Laboratory Data: Reviewed. Impression: Schizoaffective disorder, bipolar type mixed with psychotic features. Anxiety disorder unspecified. Impulse control disorder unspecified. Plan: No change from initial note. Assessment: Vital Signs/I&O: Vital Signs Date Time Temp Pulse Resp B/P (MAP) Pulse Ox O2 Delivery O2 Flow Rate FiO2 04/08/21 07:05 97.8 81 16 164/76 (105) 100 Nasal Cannula 3.0 I & O 04/07/21 04/07/21 04/08/21 15:00 23:00 07:00 Intake Total 660 ml 580 ml Balance 660 ml 580 ml Labs: Laboratory Tests Test 04/08/21 08:05 Glucose (Fingerstick) 157 mg/dL (70-99) H Current Medications: Meds: Laboratory Tests Test 04/08/21 08:05 Glucose (Fingerstick) 157 mg/dL Current Medications Medications (Trade) Dose Ordered Sig/Denise Route PRN Reason Start Time Stop Time Status Last Admin Dose Admin Acetaminophen (Tylenol) 650 mg PRN Q6HRS PRN PO MILD PAIN / TEMP > 100.3'F 03/19/21 17:00 04/07/21 00:50 Multi-Ingredient Ointment (Analgesic [place]) 1 uzair PRN QID PRN TP MUSCLE PAIN 03/19/21 17:00 03/19/21 19:27 DC Al Hydroxide/Mg Hydroxide (Mylanta Plus Xs) 15 ml PRN AFTMEALHC PRN PO DYSPEPSIA 03/19/21 17:00 03/19/21 19:26 DC Magnesium Hydroxide (Milk Of Magnesia) 2,400 mg PRN QHS PRN PO CONSTIPATION 03/19/21 17:00 03/19/21 19:14 DC Acetaminophen (Tylenol) 650 mg PRN Q6HRS PRN PO PAIN/FEVER 03/19/21 18:15 Cancel Amlodipine Besylate (Norvasc) 5 mg DAILY PO 03/20/21 09:00 04/06/21 08:48 Aspirin (Aspirin Chewable) 81 mg DAILY PO 03/20/21 09:00 04/06/21 08:44 Divalproex Sodium (Depakote Sprinkles) 500 mg DAILY PO 03/20/21 09:00 03/21/21 16:33 DC 03/20/21 09:34 Latanoprost (Xalatan) 1 drop QHS OU 03/19/21 21:00 Lisinopril (Prinivil) 10 mg DAILY PO 03/20/21 09:00 03/19/21 19:19 DC Al Hydroxide/Mg Hydroxide (Mylanta Plus Xs) 15 ml PRN AFTMEALHC PRN PO HEARTBURN / GAS 03/19/21 18:15 Melatonin (Melatonin) 3 mg QHS PO 03/19/21 21:00 04/07/21 20:52 Mirtazapine (Remeron) 7.5 mg HS PO 03/19/21 21:00 03/19/21 22:33 DC Mirtazapine (Remeron) 30 mg QHS PO 03/19/21 21:00 03/28/21 19:58 Nicotine (Nicoderm Cq 14mg Patch) 1 patch DAILY TD 03/19/21 18:30 03/22/21 17:55 DC Olanzapine (ZyPREXA) 5 mg DAILY PO 03/20/21 09:00 03/23/21 16:47 DC 03/23/21 09:00 Olanzapine (ZyPREXA) 10 mg QHS PO 03/19/21 21:00 03/26/21 10:19 DC 03/25/21 20:11 Risperidone (RisperDAL) 2 mg DAILY PO 03/20/21 09:00 03/28/21 14:38 DC 03/28/21 08:00 Trazodone HCl (Desyrel) 50 mg PRN QHS PRN PO INSOMNIA 03/19/21 18:15 03/19/21 22:10 Non-Formulary Medication (Albuterol Sulfate (Proair Respiclick)) 1 puff Q6HRS PRN INH SHORTNESS OF BREATH 03/19/21 18:15 UNV Lisinopril (Prinivil) 5 mg DAILY PO 03/20/21 09:00 04/07/21 09:35 Non-Formulary Medication (Budesonide/ Formoterol Fumarate (Symbicort 160-4.5 Mcg Inhaler)) 2 puff BID IH 03/19/21 21:00 UNV Divalproex Sodium (Depakote Sprinkles) 500 mg HS PO 03/19/21 21:00 03/21/21 16:33 DC 03/20/21 20:49 Docusate Sodium (Colace) 100 mg BID PO 03/19/21 21:00 03/26/21 10:32 DC 03/25/21 20:12 Non-Formulary Medication (Latanoprost/Pf (Latanoprost 0.005% Eye Drop)) 1 drop QHS OU 03/19/21 21:00 UNV Magnesium Hydroxide (Milk Of Magnesia) 2,400 mg PRN DAILY PRN PO CONSTIPATION 03/19/21 19:15 03/29/21 13:23 Metformin HCl (Glucophage) 1,000 mg DAILYWBKFT PO 03/20/21 08:00 04/08/21 08:51 Multi-Ingredient Ointment (Analgesic [place]) 1 uzair PRN Q6HRS PRN TP MUSCLE PAIN 03/19/21 19:15 Atorvastatin Calcium (Lipitor) 5 mg QHS PO 03/19/21 21:00 03/28/21 19:58 Non-Formulary Medication (Pravastatin Sodium ) 20 mg DAILY PO 03/20/21 09:00 UNV Non-Formulary Medication (Tiotropium [place] (Spiriva)) 1 cap BID IH 03/19/21 21:00 UNV Non-Formulary Medication (Venlafaxine Hcl (Venlafaxine Hcl Er)) 37.5 mg DAILY PO 03/20/21 09:00 03/19/21 19:11 DC Venlafaxine HCl (Effexor Xr) 75 mg DAILY PO 03/20/21 09:00 03/22/21 17:33 DC 03/22/21 08:34 Albuterol/ Ipratropium (Duoneb) 3 ml RTQID NEB 03/19/21 20:00 03/20/21 07:59 DC Budesonide (Pulmicort) 0.5 mg RTBID NEB 03/19/21 20:00 03/21/21 08:08 DC Albuterol Sulfate (Ventolin) 2.5 mg PRN Q6HRS PRN NEB SHORTNESS OF BREATH 03/19/21 19:30 Cancel Albuterol/ Ipratropium (Combivent Respimat 20-100 Mcg) 1 puff RTQID INH 03/20/21 12:00 04/05/21 13:24 Fluticasone Furoate (ARNUITY 100mcg ELLIPTA) 1 puff DAILY INH 03/20/21 09:00 Albuterol Sulfate (Ventolin Hfa Inhaler) 1 puff PRN Q6HRS PRN INH SHORTNESS OF BREATH 03/20/21 09:00 Divalproex Sodium (Depakote Er) 1,000 mg QHS PO 03/21/21 21:00 03/22/21 21:48 DC Olanzapine (ZyPREXA ZYDIS) 2.5 mg PRN Q2HRS PRN PO PSYCHOSIS 03/21/21 16:30 Divalproex Sodium (Depakote Er) 250 mg QHS PO 03/21/21 21:00 03/22/21 21:48 DC Venlafaxine HCl (Effexor) 75 mg DAILY PO 03/23/21 09:00 04/08/21 08:51 Divalproex Sodium (Depakote Sprinkles) 1,250 mg HS PO 03/22/21 22:00 03/23/21 16:47 DC 03/22/21 22:00 Olanzapine (ZyPREXA) 10 mg DAILY PO 03/24/21 09:00 03/26/21 10:18 DC 03/25/21 08:11 Divalproex Sodium (Depakote Sprinkles) 500 mg DAILY PO 03/24/21 09:00 03/28/21 14:38 DC 03/28/21 08:00 Divalproex Sodium (Depakote Sprinkles) 750 mg HS PO 03/24/21 21:00 03/28/21 14:38 DC 03/27/21 20:38 Divalproex Sodium (Depakote Sprinkles) 1,250 mg HS PO 03/23/21 21:00 03/23/21 21:01 DC 03/23/21 20:10 Olanzapine (ZyPREXA) 10 mg BID PO 03/26/21 21:00 03/28/21 14:38 DC 03/28/21 07:57 Valproic Acid (Depakene) 500 mg DAILY PO 03/29/21 09:00 04/06/21 16:40 DC 04/06/21 08:45 Valproic Acid (Depakene) 750 mg QHS PO 03/28/21 21:00 04/06/21 16:40 DC 04/05/21 20:22 Risperidone (RisperDAL) 2 mg DAILY SL 03/29/21 09:00 04/07/21 09:00 Olanzapine (ZyPREXA ZYDIS) 10 mg BID PO 03/28/21 21:00 04/06/21 16:42 DC 04/06/21 08:44 Valproic Acid (Depakene) 1,250 mg QHS PO 04/07/21 21:00 04/06/21 19:41 DC Olanzapine (ZyPREXA ZYDIS) 20 mg DAILY PO 04/07/21 09:00 04/07/21 09:00 Valproic Acid (Depakene) 1,250 mg QHS PO 04/06/21 21:00 04/07/21 20:49 Current Medications Medications (Trade) Dose Ordered Sig/Denise Route PRN Reason Start Time Stop Time Status Last Admin Dose Admin Olanzapine (ZyPREXA ZYDIS) 20 mg DAILY PO 04/07/21 09:00 04/07/21 09:00 I have reviewed the current psychotropics carefully including drug interactions. Risk benefit ratio favors no change other than as noted in my dictated progress note. Diagnosis: Problems: (1) Schizoaffective disorder, bipolar type (2) Mild cognitive impairment (3) Anxiety disorder, unspecified (4) Bipolar disorder, current episode mixed, severe, with psychotic features (5) Impulse disorder, unspecified RHETT MATHEW MD Apr 08, 2021 08:57
[2021-04-08] MEDS: FLUTICASONE FUROATE 100mcg/INH ELLIPTA INHALER. INH SCH (09:00)
[2021-04-08] MEDS: ASPIRIN CHEWABLE 81 MG TABLET. PO SCH (09:00)
[2021-04-08] MEDS: amLODIPine BESYLATE 5 MG TABLET PO SCH (09:00)
[2021-04-08] MEDS: risperiDONE ORAL 1 MG/ML 30ml BOTTLE. SL SCH (09:00)
[2021-04-08] MEDS: LISINOPRIL 5 MG TABLET. PO SCH (09:00)
--- NOTE | 2021-04-08 09:28 | PDOC ---
Exam Note: Jose Note: This note is a late entry for 04/07/2021 covers elements not covered in my initial note. Subjective: The patient was seen individually in the morning of 04/07/2021 for a treatment team meeting with Serina Calix, Indu Hunter (transition social worker), Marina, activity therapy and Magalis CEBALLOS, discussed and reviewed the chart. The patient slept 4-1/2 hours previous night. She remains intermittently compliant with her psychotropics accepting certain psychotropics at certain times. I had a lengthy discussion with her in her room this evening. She is willing to accept Depakote and Zyprexa but then when nursing staff offered these she refuses. Review of Systems: Shortness of breath on O2 supplements. No CV, , eye system symptoms on review. Mental Status Exam: The patient is oriented to herself. Speech coherent. Abstraction fair. Computation impaired. Language function intact. Mood and affect withdrawn. No active suicidal or homicidal ideation. Laboratory Data: Reviewed. Impression: Schizoaffective disorder, bipolar type mixed with psychotic fea tures. Anxiety disorder unspecified. Impulse control disorder unspecified. Plan: No change from initial note. We will continue to persevere, encouraging to take her psychotropics. Social service staff is arranging placement options and she may have to be in a long-term facility for them to get her stable on her psychotropics. Assessment: Vital Signs/I&O: Vital Signs Date Time Temp Pulse Resp B/P (MAP) Pulse Ox O2 Delivery O2 Flow Rate FiO2 04/08/21 07:05 97.8 81 16 164/76 (105) 100 Nasal Cannula 3.0 I & O 04/07/21 04/07/21 04/08/21 15:00 23:00 07:00 Intake Total 660 ml 580 ml Balance 660 ml 580 ml Labs: Laboratory Tests Test 04/08/21 08:05 Glucose (Fingerstick) 157 mg/dL (70-99) H Current Medications: Meds: Laboratory Tests Test 04/08/21 08:05 Glucose (Fingerstick) 157 mg/dL Current Medications Medications (Trade) Dose Ordered Sig/Denise Route PRN Reason Start Time Stop Time Status Last Admin Dose Admin Acetaminophen (Tylenol) 650 mg PRN Q6HRS PRN PO MILD PAIN / TEMP > 100.3'F 03/19/21 17:00 04/07/21 00:50 Multi-Ingredient Ointment (Analgesic [place]) 1 uzair PRN QID PRN TP MUSCLE PAIN 03/19/21 17:00 03/19/21 19:27 DC Al Hydroxide/Mg Hydroxide (Mylanta Plus Xs) 15 ml PRN AFTMEALHC PRN PO DYSPEPSIA 03/19/21 17:00 03/19/21 19:26 DC Magnesium Hydroxide (Milk Of Magnesia) 2,400 mg PRN QHS PRN PO CONSTIPATION 03/19/21 17:00 03/19/21 19:14 DC Acetaminophen (Tylenol) 650 mg PRN Q6HRS PRN PO PAIN/FEVER 03/19/21 18:15 Cancel Amlodipine Besylate (Norvasc) 5 mg DAILY PO 03/20/21 09:00 04/06/21 08:48 Aspirin (Aspirin Chewable) 81 mg DAILY PO 03/20/21 09:00 04/06/21 08:44 Divalproex Sodium (Depakote Sprinkles) 500 mg DAILY PO 03/20/21 09:00 03/21/21 16:33 DC 03/20/21 09:34 Latanoprost (Xalatan) 1 drop QHS OU 03/19/21 21:00 Lisinopril (Prinivil) 10 mg DAILY PO 03/20/21 09:00 03/19/21 19:19 DC Al Hydroxide/Mg Hydroxide (Mylanta Plus Xs) 15 ml PRN AFTMEALHC PRN PO HEARTBURN / GAS 03/19/21 18:15 Melatonin (Melatonin) 3 mg QHS PO 03/19/21 21:00 04/07/21 20:52 Mirtazapine (Remeron) 7.5 mg HS PO 03/19/21 21:00 03/19/21 22:33 DC Mirtazapine (Remeron) 30 mg QHS PO 03/19/21 21:00 03/28/21 19:58 Nicotine (Nicoderm Cq 14mg Patch) 1 patch DAILY TD 03/19/21 18:30 03/22/21 17:55 DC Olanzapine (ZyPREXA) 5 mg DAILY PO 03/20/21 09:00 03/23/21 16:47 DC 03/23/21 09:00 Olanzapine (ZyPREXA) 10 mg QHS PO 03/19/21 21:00 03/26/21 10:19 DC 03/25/21 20:11 Risperidone (RisperDAL) 2 mg DAILY PO 03/20/21 09:00 03/28/21 14:38 DC 03/28/21 08:00 Trazodone HCl (Desyrel) 50 mg PRN QHS PRN PO INSOMNIA 03/19/21 18:15 03/19/21 22:10 Non-Formulary Medication (Albuterol Sulfate (Proair Respiclick)) 1 puff Q6HRS PRN INH SHORTNESS OF BREATH 03/19/21 18:15 UNV Lisinopril (Prinivil) 5 mg DAILY PO 03/20/21 09:00 04/07/21 09:35 Non-Formulary Medication (Budesonide/ Formoterol Fumarate (Symbicort 160-4.5 Mcg Inhaler)) 2 puff BID IH 03/19/21 21:00 UNV Divalproex Sodium (Depakote Sprinkles) 500 mg HS PO 03/19/21 21:00 03/21/21 16:33 DC 03/20/21 20:49 Docusate Sodium (Colace) 100 mg BID PO 03/19/21 21:00 03/26/21 10:32 DC 03/25/21 20:12 Non-Formulary Medication (Latanoprost/Pf (Latanoprost 0.005% Eye Drop)) 1 drop QHS OU 03/19/21 21:00 UNV Magnesium Hydroxide (Milk Of Magnesia) 2,400 mg PRN DAILY PRN PO CONSTIPATION 03/19/21 19:15 03/29/21 13:23 Metformin HCl (Glucophage) 1,000 mg DAILYWBKFT PO 03/20/21 08:00 04/08/21 08:51 Multi-Ingredient Ointment (Analgesic [place]) 1 uzair PRN Q6HRS PRN TP MUSCLE PAIN 03/19/21 19:15 Atorvastatin Calcium (Lipitor) 5 mg QHS PO 03/19/21 21:00 03/28/21 19:58 Non-Formulary Medication (Pravastatin Sodium ) 20 mg DAILY PO 03/20/21 09:00 UNV Non-Formulary Medication (Tiotropium [place] (Spiriva)) 1 cap BID IH 03/19/21 21:00 UNV Non-Formulary Medication (Venlafaxine Hcl (Venlafaxine Hcl Er)) 37.5 mg DAILY PO 03/20/21 09:00 03/19/21 19:11 DC Venlafaxine HCl (Effexor Xr) 75 mg DAILY PO 03/20/21 09:00 03/22/21 17:33 DC 03/22/21 08:34 Albuterol/ Ipratropium (Duoneb) 3 ml RTQID NEB 03/19/21 20:00 03/20/21 07:59 DC Budesonide (Pulmicort) 0.5 mg RTBID NEB 03/19/21 20:00 03/21/21 08:08 DC Albuterol Sulfate (Ventolin) 2.5 mg PRN Q6HRS PRN NEB SHORTNESS OF BREATH 03/19/21 19:30 Cancel Albuterol/ Ipratropium (Combivent Respimat 20-100 Mcg) 1 puff RTQID INH 03/20/21 12:00 04/05/21 13:24 Fluticasone Furoate (ARNUITY 100mcg ELLIPTA) 1 puff DAILY INH 03/20/21 09:00 Albuterol Sulfate (Ventolin Hfa Inhaler) 1 puff PRN Q6HRS PRN INH SHORTNESS OF BREATH 03/20/21 09:00 Divalproex Sodium (Depakote Er) 1,000 mg QHS PO 03/21/21 21:00 03/22/21 21:48 DC Olanzapine (ZyPREXA ZYDIS) 2.5 mg PRN Q2HRS PRN PO PSYCHOSIS 03/21/21 16:30 Divalproex Sodium (Depakote Er) 250 mg QHS PO 03/21/21 21:00 03/22/21 21:48 DC Venlafaxine HCl (Effexor) 75 mg DAILY PO 03/23/21 09:00 04/08/21 08:51 Divalproex Sodium (Depakote Sprinkles) 1,250 mg HS PO 03/22/21 22:00 03/23/21 16:47 DC 03/22/21 22:00 Olanzapine (ZyPREXA) 10 mg DAILY PO 03/24/21 09:00 03/26/21 10:18 DC 03/25/21 08:11 Divalproex Sodium (Depakote Sprinkles) 500 mg DAILY PO 03/24/21 09:00 03/28/21 14:38 DC 03/28/21 08:00 Divalproex Sodium (Depakote Sprinkles) 750 mg HS PO 03/24/21 21:00 03/28/21 14:38 DC 03/27/21 20:38 Divalproex Sodium (Depakote Sprinkles) 1,250 mg HS PO 03/23/21 21:00 03/23/21 21:01 DC 03/23/21 20:10 Olanzapine (ZyPREXA) 10 mg BID PO 03/26/21 21:00 03/28/21 14:38 DC 03/28/21 07:57 Valproic Acid (Depakene) 500 mg DAILY PO 03/29/21 09:00 04/06/21 16:40 DC 04/06/21 08:45 Valproic Acid (Depakene) 750 mg QHS PO 03/28/21 21:00 04/06/21 16:40 DC 04/05/21 20:22 Risperidone (RisperDAL) 2 mg DAILY SL 03/29/21 09:00 04/07/21 09:00 Olanzapine (ZyPREXA ZYDIS) 10 mg BID PO 03/28/21 21:00 04/06/21 16:42 DC 04/06/21 08:44 Valproic Acid (Depakene) 1,250 mg QHS PO 04/07/21 21:00 04/06/21 19:41 DC Olanzapine (ZyPREXA ZYDIS) 20 mg DAILY PO 04/07/21 09:00 04/07/21 09:00 Valproic Acid (Depakene) 1,250 mg QHS PO 04/06/21 21:00 04/07/21 20:49 I have reviewed the current psychotropics carefully including drug interactions. Risk benefit ratio favors no change other than as noted in my dictated progress note. Diagnosis: Problems: (1) Schizoaffective disorder, bipolar type (2) Mild cognitive impairment (3) Anxiety disorder, unspecified (4) Bipolar disorder, current episode mixed, severe, with psychotic features (5) Impulse disorder, unspecified RHETT MATHEW MD Apr 08, 2021 09:28
[2021-04-08] MEDS ORDERED: TOLT4CAP PO (12:57)
[2021-04-08] MEDS ORDERED: OXYBUTYNIN CHLORIDE 5 MG TABLET PO SCH (14:00)
[2021-04-08] MEDS ORDERED: MIRT-8 PO (15:33)
[2021-04-08 16:09] VITALS: BP 122/73
[2021-04-08] MEDS ORDERED: OLAN5TAB99 PO (16:16)
[2021-04-08] MEDS ORDERED: OLAN20TA10 PO (16:17)
[2021-04-08] MEDS ORDERED: VALP250S3 PO (16:18)
[2021-04-08] MEDS ORDERED: VENL75TA PO (16:20)
--- NOTE | 2021-04-08 17:10 | NUR ---
ANITA contacted Lolis, pt dtr, to inform her that pt has been swabbed and tested positive for Covid. Pt will move down to the medical floor/swing bed later tonight and gave Lolis the phone number to call for updates. ANITA also let Lolis know that the pt is asymptomatic at this time. ANITA will continue to keep Lolis updated.
[2021-04-08 19:28] VITALS: BP 137/69
--- NOTE | 2021-04-08 19:33 | NUR ---
Tobacco Discharge Note [facility] Tobacco Hotline called with patient prior to discharge, patient psychotic, she refused. Tobacco cessation medication listed with current medications for discharge. patient has refused all cessation medications since admission on 03/19/21 Transition Record was faxed to follow-up provider with the following elements: Reason for admission, procedures, tests, principal diagnosis, pending studies, patient instructions, 09/04 contact information for unit, phone number to obtain pending test results, plan for follow-up care, physician follow-up, advanced directive information, and medication list with dose, duration and instructions. This information was included in the following documents: History and physical, lab results, study results, progress notes, social work planning form, DC instruction form, patient visit summary, and medication reconciliation form. Date & time record faxed: 04/08/21 [phone] Record faxed to: [facility] unit- #[id number]- LIN Jordan Record discussed with/ report given to: LIN Jordan
--- NOTE | 2021-04-08 22:19 | PDOC ---
Exam Note: Jose Note: Please also refer to the separate dictated note~for this date of service dictated separately.~Patient seen individually. Discussed the patient with Nursing staff reviewed the chart.~Reviewed interim history and current functioning. Reviewed vital signs,~Labs/ Radiology~and current medications noted below. Continue current treatment with the changes noted in the dictated addendum note Assessment: Vital Signs/I&O: Vital Signs Date Time Temp Pulse Resp B/P (MAP) Pulse Ox O2 Delivery O2 Flow Rate FiO2 04/08/21 19:28 98.7 99 16 137/69 (91) 98 Nasal Cannula 3.0 I & O 04/07/21 04/07/21 04/08/21 15:00 23:00 07:00 Intake Total 660 ml 580 ml Balance 660 ml 580 ml Labs: Laboratory Tests Test 04/08/21 08:05 Glucose (Fingerstick) 157 mg/dL (70-99) H Current Medications: Meds: Laboratory Tests Test 04/08/21 08:05 Glucose (Fingerstick) 157 mg/dL Current Medications Medications (Trade) Dose Ordered Sig/Denise Route PRN Reason Start Time Stop Time Status Last Admin Dose Admin Acetaminophen (Tylenol) 650 mg PRN Q6HRS PRN PO MILD PAIN / TEMP > 100.3'F 03/19/21 17:00 04/08/21 19:41 DC 04/07/21 00:50 Multi-Ingredient Ointment (Analgesic [place]) 1 uzair PRN QID PRN TP MUSCLE PAIN 03/19/21 17:00 03/19/21 19:27 DC Al Hydroxide/Mg Hydroxide (Mylanta Plus Xs) 15 ml PRN AFTMEALHC PRN PO DYSPEPSIA 03/19/21 17:00 03/19/21 19:26 DC Magnesium Hydroxide (Milk Of Magnesia) 2,400 mg PRN QHS PRN PO CONSTIPATION 03/19/21 17:00 03/19/21 19:14 DC Acetaminophen (Tylenol) 650 mg PRN Q6HRS PRN PO PAIN/FEVER 03/19/21 18:15 Cancel Amlodipine Besylate (Norvasc) 5 mg DAILY PO 03/20/21 09:00 04/08/21 19:41 DC 04/06/21 08:48 Aspirin (Aspirin Chewable) 81 mg DAILY PO 03/20/21 09:00 04/08/21 19:41 DC 04/06/21 08:44 Divalproex Sodium (Depakote Sprinkles) 500 mg DAILY PO 03/20/21 09:00 03/21/21 16:33 DC 03/20/21 09:34 Latanoprost (Xalatan) 1 drop QHS OU 03/19/21 21:00 04/08/21 19:41 DC Lisinopril (Prinivil) 10 mg DAILY PO 03/20/21 09:00 03/19/21 19:19 DC Al Hydroxide/Mg Hydroxide (Mylanta Plus Xs) 15 ml PRN AFTMEALHC PRN PO HEARTBURN / GAS 03/19/21 18:15 04/08/21 19:41 DC Melatonin (Melatonin) 3 mg QHS PO 03/19/21 21:00 04/08/21 19:41 DC 04/07/21 20:52 Mirtazapine (Remeron) 7.5 mg HS PO 03/19/21 21:00 03/19/21 22:33 DC Mirtazapine (Remeron) 30 mg QHS PO 03/19/21 21:00 04/08/21 19:41 DC 03/28/21 19:58 Nicotine (Nicoderm Cq 14mg Patch) 1 patch DAILY TD 03/19/21 18:30 03/22/21 17:55 DC Olanzapine (ZyPREXA) 5 mg DAILY PO 03/20/21 09:00 03/23/21 16:47 DC 03/23/21 09:00 Olanzapine (ZyPREXA) 10 mg QHS PO 03/19/21 21:00 03/26/21 10:19 DC 03/25/21 20:11 Risperidone (RisperDAL) 2 mg DAILY PO 03/20/21 09:00 03/28/21 14:38 DC 03/28/21 08:00 Trazodone HCl (Desyrel) 50 mg PRN QHS PRN PO INSOMNIA 03/19/21 18:15 04/08/21 19:41 DC 03/19/21 22:10 Non-Formulary Medication (Albuterol Sulfate (Proair Respiclick)) 1 puff Q6HRS PRN INH SHORTNESS OF BREATH 03/19/21 18:15 UNV Lisinopril (Prinivil) 5 mg DAILY PO 03/20/21 09:00 04/08/21 19:41 DC 04/07/21 09:35 Non-Formulary Medication (Budesonide/ Formoterol Fumarate (Symbicort 160-4.5 Mcg Inhaler)) 2 puff BID IH 03/19/21 21:00 UNV Divalproex Sodium (Depakote Sprinkles) 500 mg HS PO 03/19/21 21:00 03/21/21 16:33 DC 03/20/21 20:49 Docusate Sodium (Colace) 100 mg BID PO 03/19/21 21:00 03/26/21 10:32 DC 03/25/21 20:12 Non-Formulary Medication (Latanoprost/Pf (Latanoprost 0.005% Eye Drop)) 1 drop QHS OU 03/19/21 21:00 UNV Magnesium Hydroxide (Milk Of Magnesia) 2,400 mg PRN DAILY PRN PO CONSTIPATION 03/19/21 19:15 04/08/21 19:41 DC 03/29/21 13:23 Metformin HCl (Glucophage) 1,000 mg DAILYWBKFT PO 03/20/21 08:00 04/08/21 19:41 DC 04/08/21 08:51 Multi-Ingredient Ointment (Analgesic [place]) 1 uzair PRN Q6HRS PRN TP MUSCLE PAIN 03/19/21 19:15 04/08/21 19:41 DC Atorvastatin Calcium (Lipitor) 5 mg QHS PO 03/19/21 21:00 04/08/21 19:41 DC 03/28/21 19:58 Non-Formulary Medication (Pravastatin Sodium ) 20 mg DAILY PO 03/20/21 09:00 UNV Non-Formulary Medication (Tiotropium [place] (Spiriva)) 1 cap BID IH 03/19/21 21:00 UNV Non-Formulary Medication (Venlafaxine Hcl (Venlafaxine Hcl Er)) 37.5 mg DAILY PO 03/20/21 09:00 03/19/21 19:11 DC Venlafaxine HCl (Effexor Xr) 75 mg DAILY PO 03/20/21 09:00 03/22/21 17:33 DC 03/22/21 08:34 Albuterol/ Ipratropium (Duoneb) 3 ml RTQID NEB 03/19/21 20:00 03/20/21 07:59 DC Budesonide (Pulmicort) 0.5 mg RTBID NEB 03/19/21 20:00 03/21/21 08:08 DC Albuterol Sulfate (Ventolin) 2.5 mg PRN Q6HRS PRN NEB SHORTNESS OF BREATH 03/19/21 19:30 Cancel Albuterol/ Ipratropium (Combivent Respimat 20-100 Mcg) 1 puff RTQID INH 03/20/21 12:00 04/08/21 19:41 DC 04/05/21 13:24 Fluticasone Furoate (ARNUITY 100mcg ELLIPTA) 1 puff DAILY INH 03/20/21 09:00 04/08/21 19:41 DC Albuterol Sulfate (Ventolin Hfa Inhaler) 1 puff PRN Q6HRS PRN INH SHORTNESS OF BREATH 03/20/21 09:00 04/08/21 19:41 DC Divalproex Sodium (Depakote Er) 1,000 mg QHS PO 03/21/21 21:00 03/22/21 21:48 DC Olanzapine (ZyPREXA ZYDIS) 2.5 mg PRN Q2HRS PRN PO PSYCHOSIS 03/21/21 16:30 04/08/21 19:41 DC Divalproex Sodium (Depakote Er) 250 mg QHS PO 03/21/21 21:00 03/22/21 21:48 DC Venlafaxine HCl (Effexor) 75 mg DAILY PO 03/23/21 09:00 04/08/21 19:41 DC 04/08/21 08:51 Divalproex Sodium (Depakote Sprinkles) 1,250 mg HS PO 03/22/21 22:00 03/23/21 16:47 DC 03/22/21 22:00 Olanzapine (ZyPREXA) 10 mg DAILY PO 03/24/21 09:00 03/26/21 10:18 DC 03/25/21 08:11 Divalproex Sodium (Depakote Sprinkles) 500 mg DAILY PO 03/24/21 09:00 03/28/21 14:38 DC 03/28/21 08:00 Divalproex Sodium (Depakote Sprinkles) 750 mg HS PO 03/24/21 21:00 03/28/21 14:38 DC 03/27/21 20:38 Divalproex Sodium (Depakote Sprinkles) 1,250 mg HS PO 03/23/21 21:00 03/23/21 21:01 DC 03/23/21 20:10 Olanzapine (ZyPREXA) 10 mg BID PO 03/26/21 21:00 03/28/21 14:38 DC 03/28/21 07:57 Valproic Acid (Depakene) 500 mg DAILY PO 03/29/21 09:00 04/06/21 16:40 DC 04/06/21 08:45 Valproic Acid (Depakene) 750 mg QHS PO 03/28/21 21:00 04/06/21 16:40 DC 04/05/21 20:22 Risperidone (RisperDAL) 2 mg DAILY SL 03/29/21 09:00 04/08/21 19:41 DC 04/08/21 09:00 Olanzapine (ZyPREXA ZYDIS) 10 mg BID PO 03/28/21 21:00 04/06/21 16:42 DC 04/06/21 08:44 Valproic Acid (Depakene) 1,250 mg QHS PO 04/07/21 21:00 04/06/21 19:41 DC Olanzapine (ZyPREXA ZYDIS) 20 mg DAILY PO 04/07/21 09:00 04/08/21 19:41 DC 04/08/21 09:00 Valproic Acid (Depakene) 1,250 mg QHS PO 04/06/21 21:00 04/08/21 19:41 DC 04/07/21 20:49 Oxybutynin Chloride (Ditropan) 5 mg [id number] PO 04/08/21 14:00 04/08/21 19:41 DC I have reviewed the current psychotropics carefully including drug interactions. Risk benefit ratio favors no change other than as noted in my dictated progress note. Diagnosis: Problems: (1) Schizoaffective disorder, bipolar type (2) Mild cognitive impairment (3) Anxiety disorder, unspecified (4) Bipolar disorder, current episode mixed, severe, with psychotic features (5) Impulse disorder, unspecified PRIYANKA,MAN M MD Apr 08, 2021 22:19
--- NOTE | 2021-04-10 00:26 | DS ---
DATE OF DISCHARGE: 04/08/2021 This is a late entry, date of service, 04/08, covers elements not covered in my initial note. The service date of 04/08 was completed on Telehealth services due to COVID-19 pandemic. REASON FOR ADMISSION: Please refer to the admission history for details. Briefly, the patient is a 75-year-old -Kos[place] female who returns back to us referred by her outpatient primary care physician and psychiatrist, on account of worsening psychotic symptoms having auditory and visual hallucinations, hearing voices that keep her from eating. She has been agitated, threatening suicide, marked insomnia, not eating or drinking, tangential, paranoid, uncooperative, refusing medications. SIGNIFICANT FINDINGS AND CLINICAL COURSE: Following admission, the patient was seen daily individually by myself from a psychiatric standpoint, medical followup, Dr. Argueta/Dr. Walter. I met with the patient daily individually at some length. She remained extremely noncompliant with her medications, frequently only agreeing to take certain psychotropics. Despite my daily visits and lengthy discussions with her insight remain somewhat limited, which interfered with her medication compliance. Nevertheless, despite this with significant intervention by nursing staff she was taking a large part of her psychotropics intermittently. Gradually mood appeared to be improving. Psychotic symptoms are better, but at this stage, she turned up positive for COVID-19 on routine weekly screen initiated due to the pandemic. She was transferred to medical surgical floor for medical management and we would be happy to be reconsider having her back with us if clinically indicated. Prior to discharge, 04/08, discussed the patient with LIN Narayan. She picks and chooses her psychotropics. No CV, , eye, ENT system symptoms on review. She does have intermittent significant drop in oxygen sats. She refuses her oxygen supplements. MENTAL STATUS EXAMINATION: The patient is alert, oriented. Speech coherent. Abstraction fair. Computation impaired. Language function intact. Attention span short. Mood and affect remains labile. LABORATORY DATA: Reviewed. FINAL DIAGNOSES: Schizoaffective disorder, bipolar type, mixed with psychotic features; anxiety disorder, unspecified, mild cognitive impairment. Rest unchanged from admission. DISCHARGE MEDICATIONS: Please refer to the [facility]AD. PSYCHIATRIC AND MEDICAL FOLLOW UP: On . Time for discharge day management greater than 30 minutes. GURMEET/GORDON DR: Rhea TID: [id number]
--- NOTE | 2021-04-15 07:02 | PDOC ---
Exam Note: Jose Note: This is an addendum to the discharge summary to the patient dictated on 04/13/2021 since the patient was discharged on two atypical antipsychotics, olanzapine and Risperdal. The patient had failed treatment on single atypical antipsychotic in the past and was non-compliant with her other psychotropics including Depakote necessitating the use of these two antipsychotics. Once she has been stable for about 90 days on the current regimen, an attempt should be made to taper the Risperdal by 0.25 mg a day every 2 weeks till it is discontinued while continuing with the Zyprexa. The final decision of this is left to her outpatient treating psychiatrist. Current Medications: Meds: Current Medications Medications (Trade) Dose Ordered Sig/Denise Route PRN Reason Start Time Stop Time Status Last Admin Dose Admin Acetaminophen (Tylenol) 650 mg PRN Q6HRS PRN PO MILD PAIN / TEMP > 100.3'F 03/19/21 17:00 04/08/21 19:41 DC 04/07/21 00:50 Multi-Ingredient Ointment (Analgesic [place]) 1 uzair PRN QID PRN TP MUSCLE PAIN 03/19/21 17:00 03/19/21 19:27 DC Al Hydroxide/Mg Hydroxide (Mylanta Plus Xs) 15 ml PRN AFTMEALHC PRN PO DYSPEPSIA 03/19/21 17:00 03/19/21 19:26 DC Magnesium Hydroxide (Milk Of Magnesia) 2,400 mg PRN QHS PRN PO CONSTIPATION 03/19/21 17:00 03/19/21 19:14 DC Acetaminophen (Tylenol) 650 mg PRN Q6HRS PRN PO PAIN/FEVER 03/19/21 18:15 Cancel Amlodipine Besylate (Norvasc) 5 mg DAILY PO 03/20/21 09:00 04/08/21 19:41 DC 04/06/21 08:48 Aspirin (Aspirin Chewable) 81 mg DAILY PO 03/20/21 09:00 04/08/21 19:41 DC 04/06/21 08:44 Divalproex Sodium (Depakote Sprinkles) 500 mg DAILY PO 03/20/21 09:00 03/21/21 16:33 DC 03/20/21 09:34 Latanoprost (Xalatan) 1 drop QHS OU 03/19/21 21:00 04/08/21 19:41 DC Lisinopril (Prinivil) 10 mg DAILY PO 03/20/21 09:00 03/19/21 19:19 DC Al Hydroxide/Mg Hydroxide (Mylanta Plus Xs) 15 ml PRN AFTMEALHC PRN PO HEARTBURN / GAS 03/19/21 18:15 04/08/21 19:41 DC Melatonin (Melatonin) 3 mg QHS PO 03/19/21 21:00 04/08/21 19:41 DC 04/07/21 20:52 Mirtazapine (Remeron) 7.5 mg HS PO 03/19/21 21:00 03/19/21 22:33 DC Mirtazapine (Remeron) 30 mg QHS PO 03/19/21 21:00 04/08/21 19:41 DC 03/28/21 19:58 Nicotine (Nicoderm Cq 14mg Patch) 1 patch DAILY TD 03/19/21 18:30 03/22/21 17:55 DC Olanzapine (ZyPREXA) 5 mg DAILY PO 03/20/21 09:00 03/23/21 16:47 DC 03/23/21 09:00 Olanzapine (ZyPREXA) 10 mg QHS PO 03/19/21 21:00 03/26/21 10:19 DC 03/25/21 20:11 Risperidone (RisperDAL) 2 mg DAILY PO 03/20/21 09:00 03/28/21 14:38 DC 03/28/21 08:00 Trazodone HCl (Desyrel) 50 mg PRN QHS PRN PO INSOMNIA 03/19/21 18:15 04/08/21 19:41 DC 03/19/21 22:10 Non-Formulary Medication (Albuterol Sulfate (Proair Respiclick)) 1 puff Q6HRS PRN INH SHORTNESS OF BREATH 03/19/21 18:15 UNV Lisinopril (Prinivil) 5 mg DAILY PO 03/20/21 09:00 04/08/21 19:41 DC 04/07/21 09:35 Non-Formulary Medication (Budesonide/ Formoterol Fumarate (Symbicort 160-4.5 Mcg Inhaler)) 2 puff BID IH 03/19/21 21:00 UNV Divalproex Sodium (Depakote Sprinkles) 500 mg HS PO 03/19/21 21:00 03/21/21 16:33 DC 03/20/21 20:49 Docusate Sodium (Colace) 100 mg BID PO 03/19/21 21:00 03/26/21 10:32 DC 03/25/21 20:12 Non-Formulary Medication (Latanoprost/Pf (Latanoprost 0.005% Eye Drop)) 1 drop QHS OU 03/19/21 21:00 UNV Magnesium Hydroxide (Milk Of Magnesia) 2,400 mg PRN DAILY PRN PO CONSTIPATION 03/19/21 19:15 04/08/21 19:41 DC 03/29/21 13:23 Metformin HCl (Glucophage) 1,000 mg DAILYWBKFT PO 03/20/21 08:00 04/08/21 19:41 DC 04/08/21 08:51 Multi-Ingredient Ointment (Analgesic [place]) 1 uzair PRN Q6HRS PRN TP MUSCLE PAIN 03/19/21 19:15 04/08/21 19:41 DC Atorvastatin Calcium (Lipitor) 5 mg QHS PO 03/19/21 21:00 04/08/21 19:41 DC 03/28/21 19:58 Non-Formulary Medication (Pravastatin Sodium ) 20 mg DAILY PO 03/20/21 09:00 UNV Non-Formulary Medication (Tiotropium [place] (Spiriva)) 1 cap BID IH 03/19/21 21:00 UNV Non-Formulary Medication (Venlafaxine Hcl (Venlafaxine Hcl Er)) 37.5 mg DAILY PO 03/20/21 09:00 03/19/21 19:11 DC Venlafaxine HCl (Effexor Xr) 75 mg DAILY PO 03/20/21 09:00 03/22/21 17:33 DC 03/22/21 08:34 Albuterol/ Ipratropium (Duoneb) 3 ml RTQID NEB 03/19/21 20:00 03/20/21 07:59 DC Budesonide (Pulmicort) 0.5 mg RTBID NEB 03/19/21 20:00 03/21/21 08:08 DC Albuterol Sulfate (Ventolin) 2.5 mg PRN Q6HRS PRN NEB SHORTNESS OF BREATH 03/19/21 19:30 Cancel Albuterol/ Ipratropium (Combivent Respimat 20-100 Mcg) 1 puff RTQID INH 03/20/21 12:00 04/08/21 19:41 DC 04/05/21 13:24 Fluticasone Furoate (ARNUITY 100mcg ELLIPTA) 1 puff DAILY INH 03/20/21 09:00 04/08/21 19:41 DC Albuterol Sulfate (Ventolin Hfa Inhaler) 1 puff PRN Q6HRS PRN INH SHORTNESS OF BREATH 03/20/21 09:00 04/08/21 19:41 DC Divalproex Sodium (Depakote Er) 1,000 mg QHS PO 03/21/21 21:00 03/22/21 21:48 DC Olanzapine (ZyPREXA ZYDIS) 2.5 mg PRN Q2HRS PRN PO PSYCHOSIS 03/21/21 16:30 04/08/21 19:41 DC Divalproex Sodium (Depakote Er) 250 mg QHS PO 03/21/21 21:00 03/22/21 21:48 DC Venlafaxine HCl (Effexor) 75 mg DAILY PO 03/23/21 09:00 04/08/21 19:41 DC 04/08/21 08:51 Divalproex Sodium (Depakote Sprinkles) 1,250 mg HS PO 03/22/21 22:00 03/23/21 16:47 DC 03/22/21 22:00 Olanzapine (ZyPREXA) 10 mg DAILY PO 03/24/21 09:00 03/26/21 10:18 DC 03/25/21 08:11 Divalproex Sodium (Depakote Sprinkles) 500 mg DAILY PO 03/24/21 09:00 03/28/21 14:38 DC 03/28/21 08:00 Divalproex Sodium (Depakote Sprinkles) 750 mg HS PO 03/24/21 21:00 03/28/21 14:38 DC 03/27/21 20:38 Divalproex Sodium (Depakote Sprinkles) 1,250 mg HS PO 03/23/21 21:00 03/23/21 21:01 DC 03/23/21 20:10 Olanzapine (ZyPREXA) 10 mg BID PO 03/26/21 21:00 03/28/21 14:38 DC 03/28/21 07:57 Valproic Acid (Depakene) 500 mg DAILY PO 03/29/21 09:00 04/06/21 16:40 DC 04/06/21 08:45 Valproic Acid (Depakene) 750 mg QHS PO 03/28/21 21:00 04/06/21 16:40 DC 04/05/21 20:22 Risperidone (RisperDAL) 2 mg DAILY SL 03/29/21 09:00 04/08/21 19:41 DC 04/08/21 09:00 Olanzapine (ZyPREXA ZYDIS) 10 mg BID PO 03/28/21 21:00 04/06/21 16:42 DC 04/06/21 08:44 Valproic Acid (Depakene) 1,250 mg QHS PO 04/07/21 21:00 04/06/21 19:41 DC Olanzapine (ZyPREXA ZYDIS) 20 mg DAILY PO 04/07/21 09:00 04/08/21 19:41 DC 04/08/21 09:00 Valproic Acid (Depakene) 1,250 mg QHS PO 04/06/21 21:00 04/08/21 19:41 DC 04/07/21 20:49 Oxybutynin Chloride (Ditropan) 5 mg [id number] PO 04/08/21 14:00 04/08/21 19:41 DC I have reviewed the current psychotropics carefully including drug interactions. Risk benefit ratio favors no change other than as noted in my dictated progress note. Diagnosis: Problems: (1) Schizoaffective disorder, bipolar type (2) Mild cognitive impairment (3) Anxiety disorder, unspecified (4) Bipolar disorder, current episode mixed, severe, with psychotic features (5) Impulse disorder, unspecified RHETT MATHEW MD Apr 15, 2021 07:02
== END 2021-04-08 19:37 | disposition short-term general hospital (02) | DRG 885 ==
LOC: GEROPSY 15:44
PROVIDERS: ADMIT Psychiatry & Neurology Psychiatry; ATTEND Psychiatry & Neurology Psychiatry
DX: F25.0 Schizoaffective disorder, bipolar type (principal); U07.1 COVID-19; R45.851 Suicidal ideations; F41.9 Anxiety disorder, unspecified; F63.9 Impulse disorder, unspecified; G31.84 Mild cognitive impairment of uncertain or unknown etiology; G47.00 Insomnia, unspecified; I10 Essential (primary) hypertension; J44.9 Chronic obstructive pulmonary disease, unspecified; E11.9 Type 2 diabetes mellitus without complications; Z79.899 Other long term (current) drug therapy; Z86.73 Personal history of transient ischemic attack (TIA), and cerebral infarction without residual deficits; Z91.14 Patient's other noncompliance with medication regimen
CPT/HCPCS: 36415; 70450; 80053; 80164; 81001; 82274; 82306; 82607; 82947; 83036; 85025; 86592; 87077; 87086; 87186; 99406; U0003; U0005

== ENCOUNTER 2021-04-08 19:32 | Inpatient (IN) | payer MEDICARE ==
[~2021-04-08] VITALS: Ht 152.4 cm; Wt 48.7 kg
[~2021-04-08 19:32] MED LIST changes: +OLAN20TA10 PO; +OLAN5TAB99 PO; +TOLT4CAP PO; +VALP250S3 PO; +VENL75TA PO
--- NOTE | 2021-04-08 20:21 | NUR ---
The patient, GABRIEL RODRIGUEZ, 75 y/o, F admitted by BRYAN WEEKS MD, was given written information regarding hospital policies, unit procedures and contact persons. Valuables were checked and VITALS TAKEN. VITALS ARE STABLE BUT PT IS LETHARGIC. PT IS ON 1L NC UNABLE TO ORIENT. PT IS IN BED SLEEPING WILL CONTINUE TO MONITOR.
[2021-04-08 21:41] VITALS: BP 153/70
[2021-04-08] MEDS ORDERED: MAG HYDROX/AL HYDROX/SIMETH 30 ML ORAL.SUSP PO PRN (21:45)
[2021-04-08] MEDS ORDERED: ACETAMINOPHEN 325 MG TABLET PO PRN (21:45)
[2021-04-08 22:17] VITALS: BP 168/77
[2021-04-08] MEDS ORDERED: MAGNESIUM HYDROXIDE 2,400 MG/30 ML ORAL.SUSP. PO PRN (22:30)
[2021-04-08] MEDS ORDERED: ALBUTEROL SULFATE 8GM INHALER. INH PRN (22:30)
[2021-04-08] MEDS ORDERED: METHYL SALICYLATE/MENTHOL TOPICAL OINTMENT 57GM TUBE. TP PRN (22:45)
[2021-04-08] MEDS: VALPROATE ACID 250 MG/5 ML ORAL SOLUTION PO SCH (23:00)
[2021-04-08] MEDS: MIRTAZAPINE 30 MG TABLET PO SCH (23:00)
[2021-04-08] MEDS: MELATONIN 3 MG TABLET PO SCH (23:00)
[2021-04-08] MEDS: OXYBUTYNIN CHLORIDE 5 MG TABLET PO SCH (23:00)
[2021-04-08] MEDS: ATORVASTATIN CALCIUM 10 MG TABLET. PO SCH (23:00)
--- NOTE | 2021-04-09 01:56 | NUR ---
PT DIDN'T RECEIVE HER HS MEDS DUE TO HER BEING LETHARGIC. ORDERED FOR PT TO BE TAKEN OFF OF 1L NC BECAUSE PT WAS SATING IN THE UPPER 90'S. PT WAS TAKEN OFF O2. SHORTLY AFTER BEING OFF PT'S 02 SAT DROPPED TO 54% ON ROOM AIR PT WAS FOUND GASPING FOR AIR AT THIS TIME. NURSING AID APPLIED OXYGEN PER NC AGAIN STARTING AT 2L PT WASN'T RESPONDING QUICK ENOUGH 02 WAS THEN ADVANCE TO 4L NC PT RESPONDED O2 SAT IN THE 90'S NURSING AID THEN DROP 02 DOWN TO 2L PER NC PT MAINTAINED 02 SAT IN LOW 90'S.
[2021-04-09 06:14] VITALS: BP 161/66
--- NOTE | 2021-04-09 07:30 | NUR ---
RN received in report that patient desated in night after turning off oxygen. RN discovered that patient has required oxygen since [employer]AD[employer]ACH[employer] on [facility], multiple notes from stay on [facility] that patient desats without her oxygen and that patient will refuse it. Pt is currently on 1L sating 95%.
[2021-04-09] MEDS: IPRATROPIUM/ALBUTEROL 20/100mcg/INH INHALER. INH SCH ×5 (08:00→20:00)
[2021-04-09] MEDS: amLODIPine BESYLATE 5 MG TABLET PO SCH (08:47)
[2021-04-09] MEDS: LISINOPRIL 5 MG TABLET. PO SCH (08:47)
[2021-04-09] MEDS: ASPIRIN CHEWABLE 81 MG TABLET. PO SCH (08:47)
[2021-04-09] MEDS: OXYBUTYNIN CHLORIDE 5 MG TABLET PO SCH ×3 (08:47→20:23)
[2021-04-09] MEDS: metFORMIN 500 MG TABLET PO SCH (08:48)
[2021-04-09] MEDS: VENLAFAXINE 75 MG TABLET. PO SCH (08:49)
[2021-04-09] MEDS: FLUTICASONE FUROATE 100mcg/INH ELLIPTA INHALER. INH SCH ×2 (08:49→09:00)
[2021-04-09] MEDS: risperiDONE ORAL 1 MG/ML 30ml BOTTLE. PO SCH (08:49)
[2021-04-09] MEDS ORDERED: NON FORMULARY ITEM (Tiotropium Bromide (Spiriva) 18 MCG) IH SCH (09:00)
[2021-04-09] MEDS ORDERED: NON FORMULARY ITEM (Budesonide/Formoterol Fumarate (Symbicort 160-4.5 Mcg Inhaler) 2 PUFF) IH SCH (09:00)
[2021-04-09] MEDS ORDERED: NON FORMULARY ITEM (Venlafaxine Hcl (Venlafaxine Hcl Er) 75 MG) PO SCH (09:00)
--- NOTE | 2021-04-09 09:32 | NUR ---
Pt very lethargic this morning, only woke to sternal rub. Pt is now awake, alert, talking to herself. Demanding to call [place] and her daughter so that they can come visit. RN tried to explain visitation rules but patient states "I don't believe you". Pt refusing inhalers, RN explained that she has COVID 19 and that her lungs need it. Pt refusing and threatening to smack nurse if nurse touches her. Pt currently in room yelling "what is COVID 19? How are you doing momma? My daughter needs to get a job!". Pt did take meds crushed in ensure. WCTM.
[2021-04-09 10:25] VITALS: BP 155/74
--- NOTE | 2021-04-09 12:41 | HP ---
ATTENDING PHYSICIAN: Dr. Walter. We are asked to admit this patient because she tested positive for COVID-19 coronavirus. She remains asymptomatic. HISTORY OF PRESENT ILLNESS: The patient is a 75-year-old female who has been at the [facility] for the last [address] Argueta saw her in consultation on 03/19/2021. She has a longstanding history of schizoaffective disorder with dementia, paranoia, vascular dementia, bipolar disorder and very disruptive she has impulse control. She has been cared for by a outdoor pursuits instructor at home. Part of the routine testing, she tested positive for coronavirus. She has no symptoms. No fevers, cough, congestion or respiratory symptoms. She is admitted here for further isolation and eventual repeat swabs before she can return to her facility. PAST MEDICAL HISTORY: Significant for COPD, type 2 diabetes, hepatitis C, right middle cerebral artery stroke, pancreatic cyst, schizophrenia, degenerative arthritis and urinary incontinence. CURRENT MEDICATIONS: Reviewed. She was taking Tylenol, albuterol, amlodipine, aspirin, Lipitor, fluticasone, Xalatan eyedrops, Prinivil, magnesium hydroxide, melatonin, metformin, Remeron, multivitamin, Zyprexa Zydis, oxybutynin, risperidone, trazodone, Depakote and Effexor. ALLERGIES: SHE HAS ALLERGIES TO MORPHINE, EXACT REACTION IS UNCLEAR. SOCIAL HISTORY: Smoking history as noted, no alcohol use. FAMILY HISTORY: Unobtainable. REVIEW OF SYSTEMS: Unobtainable. PHYSICAL EXAMINATION: GENERAL: When I saw her, this is an agitated black female who was very uncooperative. INITIAL VITAL SIGNS: Showed a blood pressure of 161/66, pulse 86 and regular. She was afebrile, oxygen saturation 92% on 1 liter by nasal cannula. HEENT: Head is without trauma. Pupils are reactive. Oropharynx clear. NECK: Supple. LUNGS: Good breath sounds. CARDIOVASCULAR: Shows regular heart tones. ABDOMEN: Soft. EXTREMITIES: Without edema. NEUROLOGIC: Findings are focally intact. She is very agitated and demented. LABORATORY STUDIES: From the [facility] were reviewed. Most recent blood sugar is 130. Swab was positive for coronavirus. ASSESSMENT: 1. A 75-year-old female from the [facility] with asymptomatic test for coronavirus. 2. Schizoaffective disorder. 3. Behavioral issues. 4. Chronic obstructive pulmonary disease. 5. Type 2 diabetes. PLAN: 1. Admit to the medical unit. 2. Home meds, we are continuing. 3. Diet as tolerated. 4. She has no symptoms at this time with a positive coronavirus. No treatment is necessary. 5. She will have subsequent swabs to determine whether she continues to be positive. I suspect this may be a false positive test from the laboratory. EMILIANO DR: Annie TID: [id number] CC: RHETT MATHEW MD
[2021-04-09 15:50] VITALS: BP 137/55
[2021-04-09 19:59] VITALS: BP 165/82
[2021-04-09] MEDS: VALPROATE ACID 250 MG/5 ML ORAL SOLUTION PO SCH (20:22)
[2021-04-09] MEDS: MIRTAZAPINE 30 MG TABLET PO SCH (20:23)
[2021-04-09] MEDS: MELATONIN 3 MG TABLET PO SCH (20:23)
[2021-04-09] MEDS: ATORVASTATIN CALCIUM 10 MG TABLET. PO SCH (20:24)
[2021-04-09] MEDS: LATANOPROST 0.005% OPHTH SOLUTION 2.5ML BOTTLE. OU SCH (20:24)
[2021-04-09] MEDS ORDERED: MIRTAZAPINE 7.5 MG TABLET. PO SCH (21:00)
[2021-04-09] MEDS ORDERED: LATANOPROST OU SCH (21:00)
--- NOTE | 2021-04-10 02:46 | NUR ---
Nursing notes: Pt had VH/AH, speaking to self this AM. Refused inhaler but took other meds in "milk shake".
[2021-04-10 06:19] VITALS: BP 171/61
[2021-04-10] MEDS: IPRATROPIUM/ALBUTEROL 20/100mcg/INH INHALER. INH SCH ×4 (08:00→20:00)
[2021-04-10] MEDS: ASPIRIN CHEWABLE 81 MG TABLET. PO SCH (08:34)
[2021-04-10] MEDS: VENLAFAXINE 75 MG TABLET. PO SCH (08:34)
[2021-04-10] MEDS: OXYBUTYNIN CHLORIDE 5 MG TABLET PO SCH ×3 (08:35→20:43)
[2021-04-10] MEDS: amLODIPine BESYLATE 5 MG TABLET PO SCH (08:35)
[2021-04-10] MEDS: LISINOPRIL 5 MG TABLET. PO SCH (08:35)
[2021-04-10] MEDS: FLUTICASONE FUROATE 100mcg/INH ELLIPTA INHALER. INH SCH (08:36)
[2021-04-10] MEDS: metFORMIN 500 MG TABLET PO SCH (08:36)
[2021-04-10] MEDS: risperiDONE ORAL 1 MG/ML 30ml BOTTLE. PO SCH (08:37)
--- NOTE | 2021-04-10 18:56 | PN ---
DATE: 04/10/2021 ATTENDING PHYSICIAN: Dr. Walter. SUBJECTIVE: The patient is calmer today. She actually allowed me to examine her, listen to her heart and lungs. She was not as nasty as she was yesterday. She is still argumentative over everything. She is very labile mood with flight of ideas. OBJECTIVE FINDINGS: VITAL SIGNS: Blood pressure is normal. LUNGS: Clear. CARDIOVASCULAR: Showed regular heart tones. No gallops. ABDOMEN: Soft. EXTREMITIES: Without edema. ASSESSMENT: 1. A 75-year-old female from the [facility] with asymptomatic COVID-19 infection. 2. Schizoaffective disorder. 3. Behavioral issues. 4. Chronic obstructive pulmonary disease. 5. Type 2 diabetes. PLAN: 1. COVID-19 precautions. 2. Home medications continued. 3. We shall re-swab her to recheck if this is a false positive. LUZ MARIA DR: Annie TID: [id number]
[2021-04-10 19:14] VITALS: BP 148/71
[2021-04-10] MEDS: traZODone 50 MG TABLET. PO PRN (20:43)
[2021-04-10] MEDS: MIRTAZAPINE 30 MG TABLET PO SCH (20:43)
[2021-04-10] MEDS: ATORVASTATIN CALCIUM 10 MG TABLET. PO SCH (20:43)
[2021-04-10] MEDS: MELATONIN 3 MG TABLET PO SCH (20:43)
[2021-04-10] MEDS: VALPROATE ACID 250 MG/5 ML ORAL SOLUTION PO SCH (20:43)
[2021-04-10] MEDS: LATANOPROST 0.005% OPHTH SOLUTION 2.5ML BOTTLE. OU SCH (21:00)
[2021-04-11 05:56] VITALS: BP 158/73
[2021-04-11] MEDS: metFORMIN 500 MG TABLET PO SCH ×2 (08:00→08:14)
[2021-04-11] MEDS: IPRATROPIUM/ALBUTEROL 20/100mcg/INH INHALER. INH SCH ×5 (08:14→20:00)
[2021-04-11] MEDS: LISINOPRIL 5 MG TABLET. PO SCH ×2 (08:15→09:00)
[2021-04-11] MEDS: amLODIPine BESYLATE 5 MG TABLET PO SCH ×2 (08:15→09:00)
[2021-04-11] MEDS: ASPIRIN CHEWABLE 81 MG TABLET. PO SCH ×2 (08:15→09:00)
[2021-04-11] MEDS: OXYBUTYNIN CHLORIDE 5 MG TABLET PO SCH ×3 (08:16→19:46)
[2021-04-11] MEDS: VENLAFAXINE 75 MG TABLET. PO SCH ×2 (08:16→09:00)
[2021-04-11] MEDS: risperiDONE ORAL 1 MG/ML 30ml BOTTLE. PO SCH ×2 (08:18→09:00)
[2021-04-11] MEDS: FLUTICASONE FUROATE 100mcg/INH ELLIPTA INHALER. INH SCH ×2 (08:19→09:00)
--- NOTE | 2021-04-11 08:45 | NUR ---
\\nursing note Pt refused medications for this nurse this morning. pt stated" Get out of my room bitch" " ill before i take those pills from you " pt started to escalate and increased in agitation. will continue to monitor and reassess.
--- NOTE | 2021-04-11 14:10 | NUR ---
nursing note paged dr gudino in attempt to contact about pt at 2018. will continue to attempt to contact.
--- NOTE | 2021-04-11 17:15 | NUR ---
Nursing note Pt has been continent this shift and has been self toileting. pt has been verbally aggressive toward staff making statements such as a ARTIST COLOR SEPARATION " Your Egyptian i don't like Mexicans " and refusing cares from aid. pt has complained of being bored and activity staff from [facility] has brought in activities to attempt to occupy pt.
[2021-04-11 19:02] VITALS: BP 105/50
[2021-04-11] MEDS: VALPROATE ACID 250 MG/5 ML ORAL SOLUTION PO SCH (19:46)
[2021-04-11] MEDS: MIRTAZAPINE 30 MG TABLET PO SCH (19:46)
[2021-04-11] MEDS: ATORVASTATIN CALCIUM 10 MG TABLET. PO SCH (19:46)
[2021-04-11] MEDS: MELATONIN 3 MG TABLET PO SCH (19:46)
[2021-04-11] MEDS: LATANOPROST 0.005% OPHTH SOLUTION 2.5ML BOTTLE. OU SCH (19:48)
--- NOTE | 2021-04-12 00:11 | PN ---
DATE: 04/11/2021 ATTENDING PHYSICIAN: Dr. Walter. SUBJECTIVE: The patient is agitated today, very combative. She was nasty and argumentative. She is cussing the nursing staff out. OBJECTIVE FINDINGS: VITAL SIGNS: She is afebrile. Blood pressure was 148/71, temperature 98.4 degrees Fahrenheit, oxygen saturation 99% on 2 liters. I tried to examine her and listen to her lungs, she is refusing for me to come close to her. ASSESSMENT: 1. A 75-year-old female from the [facility] with asymptomatic COVID-19 infection. 2. Schizoaffective disorder with significant behavioral issues. 3. Chronic obstructive pulmonary disease. 4. Type 2 diabetes. PLAN: 1. COVID-19 precautions. 2. Home meds reviewed and continued. 3. We shall re-swab her in a few days to recheck her tests to determine whether this is a real infection or whether it is a false positive. [place] DR: Annie TID: [id number]
[2021-04-12 05:00] VITALS: BP 135/56
[2021-04-12 07:55] VITALS: BP 118/55
[2021-04-12] MEDS: IPRATROPIUM/ALBUTEROL 20/100mcg/INH INHALER. INH SCH ×4 (08:00→19:46)
[2021-04-12] MEDS: VENLAFAXINE 75 MG TABLET. PO SCH (08:00)
[2021-04-12] MEDS: OXYBUTYNIN CHLORIDE 5 MG TABLET PO SCH ×3 (08:00→19:56)
[2021-04-12] MEDS: metFORMIN 500 MG TABLET PO SCH (08:00)
[2021-04-12] MEDS: LISINOPRIL 5 MG TABLET. PO SCH (09:00)
[2021-04-12] MEDS: FLUTICASONE FUROATE 100mcg/INH ELLIPTA INHALER. INH SCH (09:00)
[2021-04-12] MEDS: ASPIRIN CHEWABLE 81 MG TABLET. PO SCH (09:00)
[2021-04-12] MEDS: risperiDONE ORAL 1 MG/ML 30ml BOTTLE. PO SCH (09:00)
[2021-04-12] MEDS: amLODIPine BESYLATE 5 MG TABLET PO SCH (09:00)
--- NOTE | 2021-04-12 16:30 | NUR ---
Nursing note Pt has been yelling in room during the day when staff goes in to check on her and offer assistance she states that she is lonely and confused. Pt ask " what exactly is wrong with me?" Pt educated on testing positive for COVID 19 to which pt stated " how can i have COVID when there hasn't been a male penis inside me for 8 years" pt educated on how COVID is transmitted. Pt then asked " what kind of doctor are you ?" pt educated that this nurse is not a doctor. pt asked who the doctor was and was educated that Dr. Walter is the doctor. pt responded with " alright ill ask that welsh doctor about a colonoscopy and hysterectomy". Pt has been continent with intermittent episodes of incontinent and has varied between independent to supervised assist.pt has refused multiple medications today as well as refused all inhalers for this nurse.
[2021-04-12 18:12] VITALS: BP 141/51
[2021-04-12] MEDS: LATANOPROST 0.005% OPHTH SOLUTION 2.5ML BOTTLE. OU SCH (19:46)
[2021-04-12] MEDS: VALPROATE ACID 250 MG/5 ML ORAL SOLUTION PO SCH ×2 (19:56→21:00)
[2021-04-12] MEDS: MELATONIN 3 MG TABLET PO SCH (19:56)
[2021-04-12] MEDS: ATORVASTATIN CALCIUM 10 MG TABLET. PO SCH (19:56)
[2021-04-12] MEDS: MIRTAZAPINE 30 MG TABLET PO SCH (19:56)
--- NOTE | 2021-04-12 21:56 | PN ---
DATE: 04/12/2021 ATTENDING PHYSICIAN: Dr. Walter. SUBJECTIVE: The patient is calm today. She was cooperative and allowed me to listen to her and examine her. Normally, she is very combative and verbally abusive. OBJECTIVE FINDINGS: VITAL SIGNS: Today: Blood pressure this morning is 118/55, pulse is 90 and regular. She is afebrile. Oxygen saturation 99% on 2 L by nasal cannula. HEENT: Head is without trauma. Pupils are reactive. Sclerae nonicteric. Oropharynx clear. NECK: Supple, no bruits. LUNGS: Good breath sounds. CARDIOVASCULAR: Showed regular heart tones. ABDOMEN: Soft. EXTREMITIES: Without edema. NEUROLOGIC: Function focally intact. Speech is fluent. SKIN: Warm and dry. ASSESSMENT: 1. A 75-year-old female from the [facility] with asymptomatic COVID-19 infection. 2. Schizoaffective disorder with behavioral issues that is significant. 3. Chronic obstructive pulmonary disease. 4. Oxygen-dependent chronic obstructive pulmonary disease. 5. Type 2 diabetes. PLAN: 1. Continue COVID-19 isolation precaution. 2. Home meds have been reviewed and continued. 3. Once again later this week we shall re-swab her and recheck her COVID status. EMI DR: Annie TID: [id number]
[2021-04-13 06:25] VITALS: BP 182/70
--- NOTE | 2021-04-13 06:30 | NUR ---
PT verbally aggressive throughout the night, sleeping very little. PT refusing medications (meds crushed in "chocolate shake"). PT refusing oxygen.
[2021-04-13] MEDS: amLODIPine BESYLATE 5 MG TABLET PO SCH (07:49)
[2021-04-13] MEDS: ASPIRIN CHEWABLE 81 MG TABLET. PO SCH (07:49)
[2021-04-13] MEDS: OXYBUTYNIN CHLORIDE 5 MG TABLET PO SCH ×3 (07:50→19:40)
[2021-04-13] MEDS: metFORMIN 500 MG TABLET PO SCH (07:50)
[2021-04-13] MEDS: LISINOPRIL 5 MG TABLET. PO SCH (07:50)
[2021-04-13] MEDS: VENLAFAXINE 75 MG TABLET. PO SCH (07:59)
[2021-04-13] MEDS: risperiDONE ORAL 1 MG/ML 30ml BOTTLE. PO SCH (08:00)
[2021-04-13] MEDS: FLUTICASONE FUROATE 100mcg/INH ELLIPTA INHALER. INH SCH (08:07)
[2021-04-13] MEDS: IPRATROPIUM/ALBUTEROL 20/100mcg/INH INHALER. INH SCH ×4 (08:07→19:41)
--- NOTE | 2021-04-13 13:02 | NUR ---
PATIENT IS AWAKE IN A CHAIR UPON ASSESSMENT, HOSTILE TOWARD THIS RN, STATED " YOU DON'T COME IN MY ROOM WITH YELLOW STETHOSCOPE, DO NOT TOUCH ME WITH IT, IT SHOULD BE BLACK STETHOSCOPE. AND DO NOT TELL ME YOU MY NURSE, MY NURSE JUST CAME AND TALKED TO ME, LEAVE MY ROOM!" THIS RN ASKED PATIENT IS THERE IS ANYTHING SHE WOULD LIKE TO HAVE TO FEEL BETTER, OFFERED PATIENT A CHOCOLATE SHAKE, PATIENT AGREED TO HAVE IT. PATIENT REFUSED TO TAKE A SHOWER AND USE AN INHALER, PATIENT IS NON COMPLIANT WITH SUPPLEMENTAL OXYGEN, PATIENT STATED " I DO NOT HAVE COPD"
[2021-04-13] MEDS ORDERED: amLODIPine BESYLATE 5 MG TABLET PO ONE (14:30)
--- NOTE | 2021-04-13 14:44 | NUR ---
PATIENT REFUSED TO TAKE BLOOD PRESSURE MED ORDERED BY DR CLEMONS. PATIENT STATED SHE TAKES DIFFERENT TYPE OF MEDICATION TO CONTROL HER BP, WHE WILL NOT TAKE THIS ONE , SHE WILL WAIT TILL TOMORROW, OR SHE CAN EVEN WAIT FOR A DAY OR TWO.
[2021-04-13 17:51] VITALS: BP 139/55
[2021-04-13] MEDS: traZODone 50 MG TABLET. PO PRN (19:40)
[2021-04-13] MEDS: VALPROATE ACID 250 MG/5 ML ORAL SOLUTION PO SCH (19:40)
[2021-04-13] MEDS: MIRTAZAPINE 30 MG TABLET PO SCH (19:40)
[2021-04-13] MEDS: MELATONIN 3 MG TABLET PO SCH (19:40)
[2021-04-13] MEDS: ATORVASTATIN CALCIUM 10 MG TABLET. PO SCH (19:40)
[2021-04-13] MEDS: LATANOPROST 0.005% OPHTH SOLUTION 2.5ML BOTTLE. OU SCH (19:41)
--- NOTE | 2021-04-13 23:12 | NUR ---
PT on assessment agitated, angry, yelling out, cussing and verbally aggressive threatening to hit nurse. PT refusing to wear oxygen even when visibly short of breath following exertion. PT claiming she does not need the oxygen because she does not have COPD or COVID. Medications crushed and placed in grape juice.
--- NOTE | 2021-04-14 00:16 | PN ---
DATE: 04/13/2021 SUBJECTIVE: The patient is a 75-year-old -Kitt[place] female patient who was transferred from [facility] for asymptomatic COVID-19 infection. On questioning her, she denied any complaint except that she would not like to get out of here. She refused to eat her lunch, refused to keep her oxygen on; however, she denied any other complaint. In particular, she has no fever. Denied any cough or phlegm. Denied any headache, dizziness or lightheadedness. PHYSICAL EXAMINATION: GENERAL: When I examined her, she was sitting comfortably in her wheelchair in no apparent respiratory distress. She is pale, not jaundiced or cyanosed. No lymphadenopathy, no thyromegaly, no jugular venous distention. No lower limb edema. VITAL SIGNS: Her heart rate was 102, blood pressure was 182/70, temperature was 96.4, respiratory rate 22, and oxygen saturation was 94% on 2 liters of oxygen. Without oxygen, her oxygen saturation drops down to 82% on room air. HEAD, EYES, EARS, NOSE, AND THROAT: Normocephalic, atraumatic. NECK: Supple. HEART: Showed normal first and second heart sounds, no gallop, rub or murmur. CHEST: Showed central trachea, equally reduced expansion, reduced air entry, vesicular breath sounds. I could not really appreciate any crepitation or rhonchi. ABDOMEN: Distended, soft, nontender. NEUROLOGIC: She is awake, alert, very paranoid; however, all cranial nerves are intact. She moves extremities without difficulty, although she is mostly bedbound. Her intake over the last 24 hours was 600, no output was recorded. LABORATORY DATA: She has no lab work ordered. ASSESSMENT: 1. Asymptomatic COVID-19 infection. 2. Schizoaffective disorder. 3. Chronic obstructive pulmonary disease. 4. Type 2 diabetes mellitus. 5. Hypertension. PLAN: To continue with all her current medication. We will monitor her closely and decide the further management accordingly. JEFFREY DR: Belen TID: [id number]
[2021-04-14 07:18] LABS: HEMATOCRIT 25.4 % (36.0-47.0); HEMOGLOBIN 7.8 g/dL (12.0-15.5); RED BLOOD COUNT 2.91 x10^6/uL (3.50-5.40); RED CELL DISTRIBUTION WIDTH 16.4 % (11.5-14.5); WHITE BLOOD COUNT 6.5 x10^3/uL (4.0-11.0)
[2021-04-14 07:32] LABS: ALBUMIN 2.8 g/dL (3.4-5.0); ALBUMIN/GLOBULIN RATIO 0.7 (1.0-1.7); CALCIUM 8.2 mg/dL (8.5-10.1); CREATININE 0.6 mg/dL (0.6-1.0); GFR 118.2; POTASSIUM 4.5 mmol/L (3.5-5.1); TOTAL BILIRUBIN 0.2 mg/dL (0.2-1.0); TOTAL PROTEIN 6.9 g/dL (6.4-8.2)
[2021-04-14] MEDS: ASPIRIN CHEWABLE 81 MG TABLET. PO SCH (08:01)
[2021-04-14] MEDS: OXYBUTYNIN CHLORIDE 5 MG TABLET PO SCH ×4 (08:02→21:00)
[2021-04-14] MEDS: metFORMIN 500 MG TABLET PO SCH (08:02)
[2021-04-14 08:05] VITALS: BP 121/44
[2021-04-14] MEDS: amLODIPine BESYLATE 10 MG TABLET PO SCH (08:07)
[2021-04-14] MEDS: LISINOPRIL 5 MG TABLET. PO SCH (08:07)
[2021-04-14] MEDS: VENLAFAXINE 75 MG TABLET. PO SCH (08:08)
[2021-04-14] MEDS: risperiDONE ORAL 1 MG/ML 30ml BOTTLE. PO SCH (08:08)
[2021-04-14] MEDS: IPRATROPIUM/ALBUTEROL 20/100mcg/INH INHALER. INH SCH ×4 (08:09→20:00)
[2021-04-14] MEDS: FLUTICASONE FUROATE 100mcg/INH ELLIPTA INHALER. INH SCH (08:12)
--- NOTE | 2021-04-14 10:56 | NUR ---
Nursing Note Consult consult put in and faxed for Dr. Conway.
[2021-04-14 18:17] VITALS: BP 129/58
[2021-04-14] MEDS: MELATONIN 3 MG TABLET PO SCH (21:00)
[2021-04-14] MEDS: MIRTAZAPINE 30 MG TABLET PO SCH (21:00)
[2021-04-14] MEDS: ATORVASTATIN CALCIUM 10 MG TABLET. PO SCH (21:00)
[2021-04-14] MEDS: LATANOPROST 0.005% OPHTH SOLUTION 2.5ML BOTTLE. OU SCH (21:00)
[2021-04-14] MEDS: VALPROATE ACID 250 MG/5 ML ORAL SOLUTION PO SCH (21:00)
--- NOTE | 2021-04-15 01:19 | PN ---
DATE: 04/14/2021 SUBJECTIVE: The patient is resting, slightly propped up in bed, no apparent distress. She is apparently more awake, more cooperative and compliant. She is keeping her oxygen on. PHYSICAL EXAMINATION: GENERAL: When I examined her, she looked well and was clearly in no apparent respiratory distress. She was pale, but no jaundice, cyanosis or thyromegaly. No jugular venous distention. No lower limb edema. VITAL SIGNS: Her heart rate was 60, blood pressure is 121/44, temperature was 98.1, respiratory rate was 18 and oxygen saturation was 92%. HEAD, EYES, EARS, NOSE, AND THROAT: Normocephalic, atraumatic. NECK: Supple. HEART: Showed normal first and second heart sounds, no gallop, rub or murmur. CHEST: Shows central trachea, equally reduced expansion, reduced air entry, vesicular breath sounds. I could not appreciate any crepitation or rhonchi. ABDOMEN: Distended, soft, nontender. NEUROLOGIC: She was grossly intact. Her intake was 720. No output was recorded. LABORATORY DATA: This morning showed a serum sodium 140, potassium 4.5, chloride 99, bicarbonate 39, anion gap of 2, BUN 16, creatinine 0.6, estimated GFR was 118 mL per minute. Her glucose 133, calcium was 8.2. Total bilirubin, AST, ALT, alkaline phosphatase were normal. Total protein was 6.9, albumin was 2.8. Her white cell count was 6500, hemoglobin 8, hematocrit 25, MCV 87 and platelet count __. Her D-dimer was 2.07. ASSESSMENT: 1. Asymptomatic COVID-19 infection. 2. Schizoaffective disorder. 3. Chronic hypoxic respiratory failure. 4. Chronic obstructive pulmonary disease. 5. Type 2 diabetes mellitus. 6. Hypertension. PLAN: To continue with her current plan of management. We will obviously monitor her COVID-19 status and once becomes negative, she might be read[facility]. GURMEET DR: Belen TID: [id number]
--- NOTE | 2021-04-15 04:07 | NUR ---
PT wanted to try new drink, really enjoyed the butter pecan Glucerna this morning with her cheese crackers.
[2021-04-15] MEDS: IPRATROPIUM/ALBUTEROL 20/100mcg/INH INHALER. INH SCH ×4 (08:00→20:00)
[2021-04-15] MEDS: metFORMIN 500 MG TABLET PO SCH (08:16)
[2021-04-15] MEDS: OXYBUTYNIN CHLORIDE 5 MG TABLET PO SCH ×4 (08:17→21:00)
[2021-04-15] MEDS: LISINOPRIL 5 MG TABLET. PO SCH (08:17)
[2021-04-15] MEDS: amLODIPine BESYLATE 10 MG TABLET PO SCH (08:17)
[2021-04-15] MEDS: ASPIRIN CHEWABLE 81 MG TABLET. PO SCH (08:18)
[2021-04-15] MEDS: risperiDONE ORAL 1 MG/ML 30ml BOTTLE. PO SCH (08:18)
[2021-04-15] MEDS: VENLAFAXINE 75 MG TABLET. PO SCH (08:19)
[2021-04-15] MEDS: FLUTICASONE FUROATE 100mcg/INH ELLIPTA INHALER. INH SCH (09:00)
[2021-04-15 09:37] VITALS: BP 164/68
--- NOTE | 2021-04-15 12:17 | NUR ---
PATIENT IS AWAKE SITTING IN A ROOM UPON ASSESSMENT. THIS RN INTRODUCED HERSELF TO THE PATIENT ASKED PERMISSION TO GET VITAL SIGNS AND PERFORM ASSESSMENT. PATIENT LOOKED AT THE NURSE, STOOD UP AND WALKED AWAY, REFUSING TO COMMUNICATE. NURSE ASKED THIS PATIENT IS SHE WANT NURSE TO COME BACK LATER, PATIENT REFUSED AGAIN TO SPEAK TO THIS RN. PATIENT IS NON COMPLIANT WITH O2 VIA NC, PATIENT REFUSED TO GET INHALER TREATMENT, PATIENT STATED " MY BREATHING IS JUST FINE I WANT IT TO BE". PATIENT LET THIS RN TO CHECK VS, PATIENT IS 89% WITH O2 -2L VIA NC, PATIENT IS TAKING OXYGEN TUBES OFF MULTIPLE TIMES.
[2021-04-15 19:00] VITALS: BP 123/67
[2021-04-15] MEDS: VALPROATE ACID 250 MG/5 ML ORAL SOLUTION PO SCH ×2 (20:59→21:00)
[2021-04-15] MEDS: ATORVASTATIN CALCIUM 10 MG TABLET. PO SCH ×2 (20:59→21:00)
[2021-04-15] MEDS: MELATONIN 3 MG TABLET PO SCH ×2 (20:59→21:00)
[2021-04-15] MEDS: MIRTAZAPINE 30 MG TABLET PO SCH ×2 (20:59→21:00)
[2021-04-15] MEDS: LATANOPROST 0.005% OPHTH SOLUTION 2.5ML BOTTLE. OU SCH ×2 (20:59→21:00)
--- NOTE | 2021-04-16 01:06 | PN ---
DATE: 04/15/2021 SUBJECTIVE: The patient is resting, slightly propped up in bed, in no apparent distress. She is awake, alert, seemed to be more cooperative today, although she has very marked mood swings, most times she is very uncooperative and combative, however, when I saw her, she looked well and was clearly in no apparent respiratory distress. She is pale. No jaundice, cyanosis. No lymphadenopathy, no thyromegaly, no jugular venous distention. No limb edema. PHYSICAL EXAMINATION: VITAL SIGNS: Her heart rate was 99, blood pressure is 164/68, temperature was 96.9, respiratory rate 22, and oxygen saturation was 89% on room air, that improves to 92% on 2 liters of oxygen. Unfortunately, the patient does not keep the oxygen for a long time. HEAD, EYES, EARS, NOSE, AND THROAT: Normocephalic, atraumatic. NECK: Supple. HEART: Showed normal first and second heart sounds. No gallop, rub or murmur. CHEST: Clear to auscultation. No crepitation or rhonchi. ABDOMEN: Distended, soft, nontender. NEUROLOGIC: She is demented without any obvious lateralizing sign. ASSESSMENT: 1. Asymptomatic COVID-19 infection. 2. Schizoaffective disorder. 3. Chronic hypoxic respiratory failure. 4. Chronic obstructive pulmonary disease. 5. Type 2 diabetes mellitus. 6. Hypertension. PLAN: To continue with her current medications including all psychotropic medication. SARY SALAMANCA: Belen TID: [id number]
[2021-04-16 07:00] VITALS: BP 127/52
[2021-04-16] MEDS: ASPIRIN CHEWABLE 81 MG TABLET. PO SCH (09:04)
[2021-04-16] MEDS: metFORMIN 500 MG TABLET PO SCH (09:04)
[2021-04-16] MEDS: amLODIPine BESYLATE 10 MG TABLET PO SCH (09:04)
[2021-04-16] MEDS: LISINOPRIL 5 MG TABLET. PO SCH (09:05)
[2021-04-16] MEDS: OXYBUTYNIN CHLORIDE 5 MG TABLET PO SCH ×3 (09:05→20:31)
[2021-04-16] MEDS: VENLAFAXINE 75 MG TABLET. PO SCH (09:07)
[2021-04-16] MEDS: risperiDONE ORAL 1 MG/ML 30ml BOTTLE. PO SCH (09:10)
[2021-04-16] MEDS: FLUTICASONE FUROATE 100mcg/INH ELLIPTA INHALER. INH SCH (09:14)
[2021-04-16] MEDS: IPRATROPIUM/ALBUTEROL 20/100mcg/INH INHALER. INH SCH ×4 (09:14→20:00)
[2021-04-16 18:32] VITALS: BP 113/68
[2021-04-16] MEDS: MIRTAZAPINE 30 MG TABLET PO SCH (20:31)
[2021-04-16] MEDS: ATORVASTATIN CALCIUM 10 MG TABLET. PO SCH (20:31)
[2021-04-16] MEDS: MELATONIN 3 MG TABLET PO SCH (20:31)
[2021-04-16] MEDS: VALPROATE ACID 250 MG/5 ML ORAL SOLUTION PO SCH ×2 (20:32→20:59)
[2021-04-16] MEDS: LATANOPROST 0.005% OPHTH SOLUTION 2.5ML BOTTLE. OU SCH (20:32)
--- NOTE | 2021-04-16 22:50 | PN ---
DATE: 04/16/2021 SUBJECTIVE: The patient is sitting comfortably in her wheelchair, in no apparent distress. She continued to refuse to use of oxygen, refused to accept that she has COPD. She is a very high elopement risk. She continued to attempt to open the door, but otherwise she remained asymptomatic, afebrile, although hypoxic as she has chronic obstructive pulmonary disease. PHYSICAL EXAMINATION: GENERAL: When I examined her this afternoon, she looked well and was clearly in no apparent respiratory distress. She was pale, but no jaundice, cyanosis, no lymphadenopathy, no thyromegaly, no jugular vein distention. No lower limb edema. VITAL SIGNS: Her heart rate was 63, blood pressure is 127/52, temperature 97.4, respiratory rate was 22 and her oxygen saturation was only 87% on room air. It goes up to 94% on 2 liters of oxygen. HEAD, EYES, EARS, NOSE, EYES, EARS, NOSE, AND THROAT: Normocephalic, atraumatic. NECK: Supple. HEART: Showed normal first and second sounds, no gallop or murmur. CHEST: Shows central trachea, equally reduced expansion, reduced air entry, vesicular breath sounds. I could not appreciate any crepitation or rhonchi. ABDOMEN: Distended, soft, nontender. NEUROLOGIC: She is demented, but without any obvious lateralizing signs. She is mostly wheelchair bound. LABORATORY DATA: No lab work available today. ASSESSMENT: 1. Asymptomatic COVID-19 infection. 2. Schizoaffective disorder. 3. Chronic hypoxic respiratory failure. 4. Chronic obstructive pulmonary disease. 5. Type 2 diabetes mellitus. 6. Hypertension. PLAN: To continue with all her current medication including all her psychotropic medications. MANFRED DR: Belen TID: [id number]
--- NOTE | 2021-04-17 02:04 | NUR ---
Nursing note: Pt kept calling this RN Cady after multiple reorientations. Refused to keep O2 on as "my oxygen was 96 earlier without it!". Reassessed O2 sats without O2 on and pt agreed as she was satting below 90. Pt continues to refuse liquid depakote, even when mixed in the glucerna.
[2021-04-17 06:00] VITALS: BP 132/60
[2021-04-17 07:06] LABS: HEMATOCRIT 24.7 % (36.0-47.0); HEMOGLOBIN 7.5 g/dL (12.0-15.5); RED BLOOD COUNT 2.79 x10^6/uL (3.50-5.40); RED CELL DISTRIBUTION WIDTH 17.2 % (11.5-14.5)
[2021-04-17 07:29] LABS: ALBUMIN/GLOBULIN RATIO 0.7 (1.0-1.7); CALCIUM 8.2 mg/dL (8.5-10.1); CREATININE 0.5 mg/dL (0.6-1.0); GFR 145.9; POTASSIUM 4.7 mmol/L (3.5-5.1); TOTAL BILIRUBIN 0.1 mg/dL (0.2-1.0); TOTAL PROTEIN 7.4 g/dL (6.4-8.2)
[2021-04-17] MEDS: OXYBUTYNIN CHLORIDE 5 MG TABLET PO SCH ×3 (07:54→20:18)
[2021-04-17] MEDS: metFORMIN 500 MG TABLET PO SCH (07:54)
[2021-04-17] MEDS: ASPIRIN CHEWABLE 81 MG TABLET. PO SCH (07:54)
[2021-04-17] MEDS: amLODIPine BESYLATE 10 MG TABLET PO SCH (07:55)
[2021-04-17] MEDS: VENLAFAXINE 75 MG TABLET. PO SCH (07:56)
[2021-04-17] MEDS: LISINOPRIL 5 MG TABLET. PO SCH (07:56)
[2021-04-17] MEDS: IPRATROPIUM/ALBUTEROL 20/100mcg/INH INHALER. INH SCH ×4 (08:00→20:00)
[2021-04-17] MEDS: risperiDONE ORAL 1 MG/ML 30ml BOTTLE. PO SCH (09:00)
[2021-04-17] MEDS: FLUTICASONE FUROATE 100mcg/INH ELLIPTA INHALER. INH SCH (09:00)
--- NOTE | 2021-04-17 11:27 | NUR ---
Nursing note during breakfast pt requested additional syrup this nurse left room to look for additional syrup pt then started screaming and came out of room screaming " hey you come back here" when this nurse went over to assess situation and ask if something was wrong the pt stated" you took my syrup" this nurse informed pt that she did not take syrup and when into pt room with pt to find syrup sitting on the tray.
[2021-04-17 19:10] VITALS: BP 115/59
[2021-04-17] MEDS: LATANOPROST 0.005% OPHTH SOLUTION 2.5ML BOTTLE. OU SCH (20:15)
[2021-04-17] MEDS: traZODone 50 MG TABLET. PO PRN (20:17)
[2021-04-17] MEDS: MELATONIN 3 MG TABLET PO SCH (20:17)
[2021-04-17] MEDS: MIRTAZAPINE 30 MG TABLET PO SCH (20:18)
[2021-04-17] MEDS: ATORVASTATIN CALCIUM 10 MG TABLET. PO SCH (20:18)
[2021-04-17] MEDS: VALPROATE ACID 250 MG/5 ML ORAL SOLUTION PO SCH (20:45)
--- NOTE | 2021-04-17 23:30 | PN ---
DATE: 04/17/2021 SUBJECTIVE: The patient is sitting comfortably in her wheelchair eating her supper, in no apparent distress. On questioning her, she denied any complaint. She continued to be uncooperative, refusing to keep her oxygen on, refusing to accept the fact that she has COPD that she has also hypoxia, claiming that our machines are not functioning well. Her coronavirus by PCR came back negative and she is generally continued to be asymptomatic. PHYSICAL EXAMINATION: GENERAL: When I examined her this afternoon, she looked well and was clearly in no apparent respiratory distress. She is pale, no jaundice, cyanosis, no lymphadenopathy, no thyromegaly, no jugular venous distention. No lower limb edema. VITAL SIGNS: Her heart rate was 99, blood pressure is 132/60, temperature 97.7, respiratory rate was 18, and oxygen saturation was 100% on 3 liters of oxygen. The rest of clinical exam is stable. LABORATORY DATA: Her lab work this morning showed a white cell count of 7000, hemoglobin 7.5, hematocrit 24.7, MCV 89, and platelet count of 177,000. Her chemistry is also unremarkable. Her blood sugar is well controlled. Her liver enzymes are all within normal range and her coronavirus by nucleic acid amplification tests were negative. ASSESSMENT: 1. Asymptomatic COVID-19 infection. 2. Schizoaffective disorder. 3. Chronic hypoxic respiratory failure. 4. Chronic obstructive pulmonary disease. 5. Type 2 diabetes mellitus, seems reasonably controlled. 6. Hypertension, well controlled. PLAN: To continue with all her current medication including all her psychotropic medications. Continue to monitor blood sugar and adjust insulin as needed. Her coronavirus by PCR was negative and we will discuss tomorrow whether she is a candidate to go back to [facility]. JONE SALAMANCA: Belen TID: [id number]
--- NOTE | 2021-04-18 01:28 | NUR ---
PT to be discharged to [facility]. PT to be transported via wheelchair.
== END 2021-04-18 03:15 | DRG 885 ==
LOC: LND 19:32
PROVIDERS: ADMIT Hospitalist; ATTEND Hospitalist
DX: F25.9 Schizoaffective disorder, unspecified (principal); J96.11 Chronic respiratory failure with hypoxia; E11.9 Type 2 diabetes mellitus without complications; F01.50 Vascular dementia, unspecified severity, without behavioral disturbance, psychotic disturbance, mood disturbance, and anxiety; I10 Essential (primary) hypertension; F31.9 Bipolar disorder, unspecified; Z20.822 Contact with and (suspected) exposure to COVID-19; J44.9 Chronic obstructive pulmonary disease, unspecified; Z86.73 Personal history of transient ischemic attack (TIA), and cerebral infarction without residual deficits; Z87.891 Personal history of nicotine dependence; Z99.81 Dependence on supplemental oxygen
CPT/HCPCS: 36415; 80053; 82947; 85027; 85379; 86140; U0003; U0005

== ENCOUNTER 2021-04-18 01:21 | Inpatient (IN) | payer MEDICARE ==
[~2021-04-18] VITALS: Ht 152.4 cm; Wt 49.4 kg
[2021-04-18] MEDS ORDERED: MAG HYDROX/AL HYDROX/SIMETH 30 ML ORAL.SUSP PO PRN (02:00)
[2021-04-18] MEDS ORDERED: traZODone 50 MG TABLET. PO PRN (02:00)
[2021-04-18] MEDS ORDERED: METHYL SALICYLATE/MENTHOL TOPICAL OINTMENT 57GM TUBE. TP PRN (05:00)
[2021-04-18] MEDS ORDERED: MAGNESIUM HYDROXIDE 2,400 MG/30 ML ORAL.SUSP. PO PRN (05:00)
[2021-04-18] MEDS ORDERED: ALBUTEROL SULFATE 8GM INHALER. INH PRN (05:00)
[2021-04-18] MEDS: risperiDONE 2 MG TABLET. PO SCH (08:00)
[2021-04-18] MEDS: ASPIRIN CHEWABLE 81 MG TABLET. PO SCH (08:00)
[2021-04-18] MEDS: FLUTICASONE FUROATE 100mcg/INH ELLIPTA INHALER. INH SCH (08:00)
[2021-04-18] MEDS: OXYBUTYNIN CHLORIDE 5 MG TABLET PO SCH ×3 (08:00→21:00)
[2021-04-18] MEDS: IPRATROPIUM/ALBUTEROL 20/100mcg/INH INHALER. INH SCH ×4 (08:00→20:00)
[2021-04-18] MEDS: OLANZapine 10 MG TABLET PO SCH (08:00)
[2021-04-18] MEDS: NICOTINE 21MG PATCH. TD SCH (08:00)
[2021-04-18] MEDS: amLODIPine BESYLATE 10 MG TABLET PO SCH (08:00)
[2021-04-18] MEDS ORDERED: NON FORMULARY ITEM (Venlafaxine Hcl (Venlafaxine Hcl Er) 75 MG) PO SCH (09:00)
[2021-04-18] MEDS ORDERED: NON FORMULARY ITEM (Tiotropium Bromide (Spiriva) 18 MCG) IH SCH (09:00)
[2021-04-18 09:31] LABS: BASO % 1 % (0-3); EOS # 0.1 x10^3/uL (0.0-0.7); EOS % 1 % (0-3); HEMATOCRIT 23.5 % (36.0-47.0); HEMOGLOBIN 7.2 g/dL (12.0-15.5); LYMPH # 0.7 x10^3/uL (1.0-4.8); LYMPH % 9 % (24-48); MEAN CORPUSCULAR HEMOGLOBIN 27 pg (25-35); MEAN CORPUSCULAR HGB CONC 31 g/dL (31-37); MEAN CORPUSCULAR VOLUME 87 fL (79-100); MONO # 0.8 x10^3/uL (0.0-1.1); MONO % 11 % (0-9); NEUT # 6.3 x10^3uL (1.8-7.7); NEUT % 79 % (31-73); PLATELET COUNT 167 x10^3/uL (140-400); RED BLOOD COUNT 2.69 x10^6/uL (3.50-5.40); RED CELL DISTRIBUTION WIDTH 17.4 % (11.5-14.5)
[2021-04-18] MEDS: VENLAFAXINE 75 MG TABLET. PO SCH (09:32)
[2021-04-18] MEDS: metFORMIN 500 MG TABLET PO SCH (09:32)
[2021-04-18] MEDS: LISINOPRIL 5 MG TABLET. PO SCH (09:33)
[2021-04-18 09:48] LABS: ALBUMIN 2.8 g/dL (3.4-5.0); ALBUMIN/GLOBULIN RATIO 0.7 (1.0-1.7); CALCIUM 8.1 mg/dL (8.5-10.1); CREATININE 0.5 mg/dL (0.6-1.0); GFR 145.9; MAGNESIUM 2.1 mg/dL (1.8-2.4); POTASSIUM 4.1 mmol/L (3.5-5.1); TOTAL BILIRUBIN 0.2 mg/dL (0.2-1.0); TOTAL PROTEIN 6.9 g/dL (6.4-8.2)
[2021-04-18 09:51] LABS: VAL ACID < 3 mcg/mL (50-100)
[2021-04-18 15:59] VITALS: BP 108/56
[2021-04-18 16:33] LABS: THYROID STIM HORMONE (TSH) 2.282 uIU/mL (0.358-3.740)
[2021-04-18 20:06] LABS: THYROXINE 5.5 ug/dL (4.5-12.0)
[2021-04-18] MEDS: ATORVASTATIN CALCIUM 10 MG TABLET. PO SCH (21:00)
[2021-04-18] MEDS: MELATONIN 3 MG TABLET PO SCH (21:00)
[2021-04-18] MEDS: VALPROIC ACID 250 MG CAPSULE. PO SCH (21:00)
[2021-04-18] MEDS: LATANOPROST 0.005% OPHTH SOLUTION 2.5ML BOTTLE. OU SCH (21:00)
[2021-04-18] MEDS ORDERED: LATANOPROST OU SCH (21:00)
[2021-04-18] MEDS: MIRTAZAPINE 30 MG TABLET PO SCH (21:00)
--- NOTE | 2021-04-18 21:53 | PDOC ---
Exam Note: Jose Note: Please also refer to the separate dictated note~for this date of service dictated separately.~Patient seen individually. Discussed the patient with Nursing staff reviewed the chart.~Reviewed interim history and current functioning. Reviewed vital signs,~Labs/ Radiology~and current medications noted below. Continue current treatment with the changes noted in the dictated addendum note Assessment: Vital Signs/I&O: Vital Signs Date Time Temp Pulse Resp B/P (MAP) Pulse Ox O2 Delivery O2 Flow Rate FiO2 04/18/21 15:59 98.3 101 20 108/56 (73) 99 2.0 Labs: Laboratory Tests Test 04/18/21 07:23 04/18/21 09:15 Glucose (Fingerstick) 141 mg/dL (70-99) H White Blood Count 8.0 x10^3/uL (4.0-11.0) Red Blood Count 2.69 x10^6/uL (3.50-5.40) L Hemoglobin 7.2 g/dL (12.0-15.5) L Hematocrit 23.5 % (36.0-47.0) L Mean Corpuscular Volume 87 fL (79-100) Mean Corpuscular Hemoglobin 27 pg (25-35) Mean Corpuscular Hemoglobin Concent 31 g/dL (31-37) Red Cell Distribution Width 17.4 % (11.5-14.5) H Platelet Count 167 x10^3/uL (140-400) Neutrophils (%) (Auto) 79 % (31-73) H Lymphocytes (%) (Auto) 9 % (24-48) L Monocytes (%) (Auto) 11 % (0-9) H Eosinophils (%) (Auto) 1 % (0-3) Basophils (%) (Auto) 1 % (0-3) Neutrophils # (Auto) 6.3 x10^3uL (1.8-7.7) Lymphocytes # (Auto) 0.7 x10^3/uL (1.0-4.8) L Monocytes # (Auto) 0.8 x10^3/uL (0.0-1.1) Eosinophils # (Auto) 0.1 x10^3/uL (0.0-0.7) Basophils # (Auto) 0.0 x10^3/uL (0.0-0.2) D-Dimer (Janette) 2.29 mg/L (0.00-0.50) H Sodium Level 137 mmol/L (136-145) Potassium Level 4.1 mmol/L (3.5-5.1) Chloride Level 101 mmol/L (98-107) Carbon Dioxide Level 35 mmol/L (21-32) H Anion Gap 1 (6-14) L Blood Urea Nitrogen 14 mg/dL (7-20) Creatinine 0.5 mg/dL (0.6-1.0) L Estimated GFR (Cockcroft-Gault) 145.9 BUN/Creatinine Ratio 28 (6-20) H Glucose Level 168 mg/dL (70-99) H Calcium Level 8.1 mg/dL (8.5-10.1) L Magnesium Level 2.1 mg/dL (1.8-2.4) Iron Level 21 ug/dL (50-170) L Total Iron Binding Capacity 405 ug/dL (250-450) Iron Saturation 5 % (15-34) L Total Bilirubin 0.2 mg/dL (0.2-1.0) Aspartate Amino Transferase (AST) 32 U/L (15-37) Alanine Aminotransferase (ALT) 30 U/L (14-59) Alkaline Phosphatase 54 U/L (46-116) Total Protein 6.9 g/dL (6.4-8.2) Albumin 2.8 g/dL (3.4-5.0) L Albumin/Globulin Ratio 0.7 (1.0-1.7) L Triglycerides Level 16 mg/dL (0-150) Cholesterol Level 152 mg/dL (0-200) LDL Cholesterol, Calculated 79 mg/dL (0-100) VLDL Cholesterol, Calculated 3 mg/dL (0-40) Non-HDL Cholesterol Calculated 82 mg/dL (0-129) HDL Cholesterol 70 mg/dL (40-60) H Cholesterol/HDL Ratio 2.0 Vitamin B12 Level 1084 pg/mL (247-911) H 25-Hydroxy Vitamin D Total 29.0 ng/mL (30-100) L Thyroid Stimulating Hormone (TSH) 2.282 uIU/mL (0.358-3.740) Thyroxine (T4) 5.5 ug/dL (4.5-12.0) Total Triiodothyronine (TT3) 89 ng/dL (71-180) Valproic Acid Level < 3 mcg/mL (50-100) L Valproic Acid Last Dose Date 04/17/21 Valproic Acid Last Dose Time 2100 Current Medications: Meds: Current Medications Medications (Trade) Dose Ordered Sig/Denise Route PRN Reason Start Time Stop Time Status Last Admin Dose Admin Venlafaxine HCl (Effexor) 75 mg DAILY PO 04/18/21 09:00 04/18/21 09:32 Lisinopril (Prinivil) 5 mg DAILY PO 04/18/21 09:00 04/18/21 09:33 Metformin HCl (Glucophage) 1,000 mg DAILYWBKFT PO 04/18/21 08:00 04/18/21 09:32 I have reviewed the current psychotropics carefully including drug interactions. Risk benefit ratio favors no change other than as noted in my dictated progress note. Diagnosis: Problems: (1) Schizoaffective disorder, bipolar type (2) Mild cognitive impairment (3) Anxiety disorder, unspecified (4) Bipolar disorder, current episode mixed, severe, with psychotic features (5) Impulse disorder, unspecified RHETT MATHEW MD Apr 18, 2021 21:53
[2021-04-19 02:06] LABS: HEMOGLOBIN A1C 7.3 % (4.8-5.6)
[2021-04-19 05:50] VITALS: BP 158/53
[2021-04-19] MEDS: FLUTICASONE FUROATE 100mcg/INH ELLIPTA INHALER. INH SCH (08:06)
[2021-04-19] MEDS: NICOTINE 21MG PATCH. TD SCH (08:06)
[2021-04-19] MEDS: IPRATROPIUM/ALBUTEROL 20/100mcg/INH INHALER. INH SCH ×4 (08:06→20:00)
[2021-04-19] MEDS: metFORMIN 500 MG TABLET PO SCH (08:06)
[2021-04-19] MEDS: LISINOPRIL 5 MG TABLET. PO SCH (08:06)
[2021-04-19] MEDS: VENLAFAXINE 75 MG TABLET. PO SCH (08:07)
[2021-04-19] MEDS: risperiDONE 2 MG TABLET. PO SCH (09:00)
[2021-04-19] MEDS: amLODIPine BESYLATE 10 MG TABLET PO SCH (09:00)
[2021-04-19] MEDS: OLANZapine 10 MG TABLET PO SCH (09:00)
[2021-04-19] MEDS: OXYBUTYNIN CHLORIDE 5 MG TABLET PO SCH ×3 (09:00→20:24)
[2021-04-19] MEDS: ASPIRIN CHEWABLE 81 MG TABLET. PO SCH (09:00)
[2021-04-19 13:53] LABS: HEMOGLOBIN 7.2 g/dL (12.0-15.5)
--- NOTE | 2021-04-19 15:50 | TX PLAN ---
Interdisciplinary Tx Plan Admission Information Apr 18, 2021 at 03:10 Legal Status (on Admission): Voluntary DPOA/Guardian Name: Lolis Yip Contact Other Contact Verified Code Status: Full Code Allergies: Coded Allergies: morphine (Verified Allergy, Intermediate, Unknown, 10/09/20) Diagnoses Primary Diagnosis: Schizoaffective D/O, Bipolar type with psychotic features Reasons for Admission: Aggressive, Agitated, Anxiety/Panic, Suspicious/paranoid, Poor impulse control Problem in Patient's Words: This is not pt experiencing schizoaffective symptoms; more concerned that this is a decline for her dementia and would like for her to be evaluated further for this diagnosis. Additional Admission Comments: According to the intake pt was agitated, not eating or drinking, delusional, paranoid, verbally aggressive, uncooperative, refusing medications Problems Active Problems: agitated refusing meds delusional uncooperative withdrawn Inactive Problems: N/A Pt Strengths/Limitations Ability for [place]: Poor Cognitive Functioning/Ability: Fair Communication Skills/Ability: Fair Financial Resources: Fair Insight/Judgement: Poor Intellectual Ability: Fair Physical Health: Fair Social Skills: Poor Stability in Family: Fair Stability in School/Work: Poor Verbal Skills: Fair Discharge Criteria Discharge Criteria: Able meet basic life need, No need for close observ., Adequate arrangements @DC, Improved behavior, Improved mood/thought Preliminary Discharge Plan Preliminary DC Plan: Placement Needed Special Precautions Fall Risk: Moderate Initial D/C Plan Pt will need placement once stable. Identified Discharge Needs: Referrals for a higher level of care is needed. Currently Utilized Resources Currently Utilized Resources/P: Primary Care Physician Identified Problems/Hx/Goals Objectives/Short-Term Goals Short Term Goals: Dec. Aggression, Dec. Hallucination/Delus, Dec. Outbursts, Medication Stabilization, Monitor Med Effects, Promote Coping Skill Short Term Goals in Patient's: N/A Interventions/Frequency Staff Interventions/Frequency&: Psychiatrist to assess pt at least 3x per week for medicaiton management. Social Work to assess pt at least 2x per week to identify barriers to care and dischcarge planning. Nursing to assess medication effects, behavior management and completion of 15 minute checks. Encourage participation in group activities (if applicable) or 1:1 engagement based of activity dept goals. 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 Pt is unsure as to what degree pt was striving for. Community Follow-up Referrals for placement. Treatment Plan Explained Patient/Plumbing Installer had this treatment plan explained to him/her as indicated by the signature below and has been given the opportunity to ask questions and make suggestions: Date: Patient/Plumbing Installer Signature: Patient/Plumbing Installer Decline: JASPER Castillo Apr 19, 2021 15:50
[2021-04-19 16:10] VITALS: BP 130/61
[2021-04-19] MEDS: LATANOPROST 0.005% OPHTH SOLUTION 2.5ML BOTTLE. OU SCH (20:23)
[2021-04-19] MEDS: VALPROIC ACID 250 MG CAPSULE. PO SCH (20:24)
[2021-04-19] MEDS: FERROUS SULFATE 325 MG TABLET. PO SCH (20:25)
[2021-04-19] MEDS: MELATONIN 3 MG TABLET PO SCH (20:25)
[2021-04-19] MEDS: MIRTAZAPINE 30 MG TABLET PO SCH (20:25)
[2021-04-19] MEDS: ASCORBIC ACID 500 MG TABLET PO SCH (20:25)
[2021-04-19] MEDS: ATORVASTATIN CALCIUM 10 MG TABLET. PO SCH (20:25)
--- NOTE | 2021-04-19 21:56 | PDOC ---
Exam Note: Jose Note: Please also refer to the separate dictated note~for this date of service dictated separately.~Patient seen individually. Discussed the patient with Nursing staff reviewed the chart.~Reviewed interim history and current functioning. Reviewed vital signs,~Labs/ Radiology~and current medications noted below. Continue current treatment with the changes noted in the dictated addendum note Assessment: Vital Signs/I&O: Vital Signs Date Time Temp Pulse Resp B/P (MAP) Pulse Ox O2 Delivery O2 Flow Rate FiO2 04/19/21 16:10 97.4 96 20 130/61 (84) 100 04/19/21 05:50 Nasal Cannula 2.0 I & O 04/18/21 04/18/21 04/19/21 15:00 23:00 07:00 Intake Total 240 ml 0 ml Balance 240 ml 0 ml Labs: Laboratory Tests Test 04/19/21 07:31 04/19/21 13:40 Glucose (Fingerstick) 174 mg/dL (70-99) H Hemoglobin 7.2 g/dL (12.0-15.5) L Hematocrit 23.0 % (36.0-47.0) L Current Medications: Meds: Laboratory Tests Test 04/19/21 07:31 04/19/21 13:40 Glucose (Fingerstick) 174 mg/dL Hemoglobin 7.2 g/dL Hematocrit 23.0 % Current Medications Medications (Trade) Dose Ordered Sig/Denise Route PRN Reason Start Time Stop Time Status Last Admin Dose Admin Acetaminophen (Tylenol) 650 mg PRN Q6HRS PRN PO PAIN/FEVER 04/18/21 02:00 Amlodipine Besylate (Norvasc) 10 mg DAILY PO 04/18/21 09:00 04/19/21 09:00 Aspirin (Aspirin Chewable) 81 mg DAILY PO 04/18/21 09:00 04/19/21 18:19 DC 04/19/21 09:00 Latanoprost (Xalatan) 1 drop QHS OU 04/18/21 21:00 04/19/21 20:23 Al Hydroxide/Mg Hydroxide (Mylanta Plus Xs) 15 ml PRN AFTMEALHC PRN PO HEARTBURN / GAS 04/18/21 02:00 Melatonin (Melatonin) 3 mg QHS PO 04/18/21 21:00 04/19/21 20:25 Mirtazapine (Remeron) 30 mg QHS PO 04/18/21 21:00 04/19/21 20:25 Olanzapine (ZyPREXA ZYDIS) 2.5 mg PRN Q2HR PRN PO ANXIETY / AGITATION 04/18/21 02:00 Risperidone (RisperDAL) 2 mg DAILY PO 04/18/21 09:00 04/19/21 09:00 Trazodone HCl (Desyrel) 50 mg PRN QHS PRN PO INSOMNIA 04/18/21 02:00 Venlafaxine HCl (Effexor) 75 mg DAILY PO 04/18/21 09:00 04/19/21 08:07 Albuterol Sulfate (Ventolin Hfa Inhaler) 1 puff Q6HRS PRN INH SHORTNESS OF BREATH 04/18/21 05:00 Lisinopril (Prinivil) 5 mg DAILY PO 04/18/21 09:00 04/19/21 08:06 Fluticasone Furoate (ARNUITY 100mcg ELLIPTA) 1 puff DAILY INH 04/18/21 09:00 Non-Formulary Medication (Latanoprost/Pf (Latanoprost 0.005% Eye Drop)) 1 drop QHS OU 04/18/21 21:00 UNV Magnesium Hydroxide (Milk Of Magnesia) 2,400 mg PRN DAILY PRN PO CONSTIPATION 04/18/21 05:00 Metformin HCl (Glucophage) 1,000 mg DAILYWBKFT PO 04/18/21 08:00 04/19/21 08:06 Multi-Ingredient Ointment (Analgesic [place]) 1 uzair PRN Q6HRS PRN TP MUSCLE PAIN 04/18/21 05:00 Olanzapine (ZyPREXA) 20 mg DAILY PO 04/18/21 09:00 04/19/21 09:00 Atorvastatin Calcium (Lipitor) 5 mg QHS PO 04/18/21 21:00 04/19/21 20:25 Non-Formulary Medication (Tiotropium [place] (Spiriva)) 18 mcg BID IH 04/18/21 09:00 UNV Oxybutynin Chloride (Ditropan) 5 mg [id number] PO 04/18/21 09:00 04/19/21 20:24 Valproic Acid (Depakene) 1,250 mg QHS PO 04/18/21 21:00 04/19/21 20:24 Non-Formulary Medication (Venlafaxine Hcl (Venlafaxine Hcl Er)) 75 mg DAILY PO 04/18/21 09:00 UNV Nicotine (Nicoderm Cq 21mg Patch) 1 patch DAILY TD 04/18/21 09:00 Albuterol/ Ipratropium (Combivent Respimat 20-100 Mcg) 1 puff RTQID INH 04/18/21 08:00 04/19/21 20:00 Ferrous Sulfate (Feosol) 325 mg BID PO 04/19/21 21:00 Ascorbic Acid (Vitamin C) 500 mg BID PO 04/19/21 21:00 I have reviewed the current psychotropics carefully including drug interactions. Risk benefit ratio favors no change other than as noted in my dictated progress note. Diagnosis: Problems: (1) Schizoaffective disorder, bipolar type (2) Mild cognitive impairment (3) Anxiety disorder, unspecified (4) Bipolar disorder, current episode mixed, severe, with psychotic features (5) Impulse disorder, unspecified RHETT MATHEW MD Apr 19, 2021 21:56
--- NOTE | 2021-04-19 23:22 | HP ---
ADMIT DATE: 04/18/2021 PSYCHIATRIC ADMISSION HISTORY/EVALUATION This late entry date of service 04/18/2021 covers elements not covered in my initial note of 04/18/2021. IDENTIFYING DATA: The patient is a 75-year-old Afro-[place]e female who returns back to [facility] after she was prematurely discharged from our unit because she turned up COVID positive. She is on the isolation unit on the medical/surgical floor, medically stable. Still remained paranoid, intermittently refusing medications, quite psychotic, hearing voices, having hallucinations. She was initially referred to us from home on account of suicidal ideation, marked insomnia, psychotic symptoms, not eating or drinking, delusional, paranoid, uncooperative, refusing medications. The patient has been medically stabilized along with psychiatric stabilization on our unit when she turned up COVID positive, was then transitioned to the isolation unit, medically stable and then behaviors persisted resulting in this referral back to us. I met with her evening of 04/18/2021 on Telehealth services. CHIEF COMPLAINT: "I'm ready to go home." HISTORY OF PRESENT ILLNESS: The patient has a history of schizoaffective disorder, bipolar type. She had been living at home and daughter had been closely involved with her care. She was noncompliant with her medications, started getting increasingly psychotic, hearing voices with thoughts of suicide, marked insomnia, agitation, not eating or drinking, paranoid, refusing medications. All of this has persisted while on the isolation unit thus resulting in this referral back to us. She does have a history of significant mood swings consistent with her diagnosis of schizoaffective disorder, bipolar type. PAST PSYCHIATRIC HISTORY: As above. The patient also has progressively worsening memory deficits. MEDICAL HISTORY: Positive for COPD, type 2 diabetes mellitus, hypertension, history of CVA, hepatitis C. failure to thrive. ACCU-CHEKS: Daily. ALLERGIES: MORPHINE. CODE STATUS: Full code. DIET: Regular diabetic. Takes medications crushed or hidden. Ambulates independently. CURRENT PSYCHOTROPICS: Effexor 75 mg daily, Risperdal liquid 2 mg daily, Zyprexa 20 mg daily, Depakene liquid 1250 mg at bedtime, but she was noncompliant with this. Valproic acid level on 04/17 was less than 3. She is also on melatonin 3 mg at bedtime, Remeron 30 mg at bedtime, trazodone at bedtime p.r.n., Zyprexa p.r.n. FAMILY HISTORY: Noncontributory. SOCIAL HISTORY: The patient's daughter is closely involved in her care. No alcohol, drug abuse, physical, sexual or elder abuse history is noted. She is not known to be a perpetrator. REACTION TO HOSPITALIZATION: The patient did not quite accepting it. ASSETS: Supportive daughter. REVIEW OF SYSTEMS: Shortness of breath, on O2 supplements, impaired ambulation. No CV, GI, , ENT system symptoms on review. MENTAL STATUS EXAM: The patient was seen individually evening of 04/18/2021 on Telehealth evaluation. Met with her in her room. She is awake, alert, oriented to herself, situation, somewhat tired and sedated. Speech moderate latency, often responses monosyllabic. Abstraction, fair. Computation, impaired. Language function, intact. She is quite resistive to medications, does have short-term memory deficits. No active suicidal or homicidal ideation. Addressed medication compliance at length with her. IMPRESSION: Schizoaffective disorder, bipolar type, mixed with psychotic features; mild cognitive impairment; anxiety disorder, unspecified; impulse control disorder, unspecified. Rest unchanged from above. PLAN: Admit to [facility] Unit at [facility]. I will see the patient daily individually from a psychiatric standpoint. Medical followup, Dr. Argueta/Dr. Walter. Continue current psychotropics. Encouraged compliance. Repeat valproic acid level. Make further adjustments as clinically indicated. ESTIMATED LENGTH OF STAY: 7 to 9 days. DISPOSITION PLANS: The patient will need a higher level of care than returning home once she is psychiatrically stabilized. DAMON DR: Rhea TID: [id number]
[2021-04-20 05:40] VITALS: BP 168/84
[2021-04-20 06:23] LABS: HEMATOCRIT 22.6 % (36.0-47.0); HEMOGLOBIN 7.1 g/dL (12.0-15.5)
--- NOTE | 2021-04-20 06:49 | PDOC ---
Exam Note: Jose Note: This note is a late entry for 04/19/2021overs elements not covered in my initial note. Subjective: The patient was seen face to face in the evening of 04/19/2021 with Jami CEBALLOS, discussed and reviewed the chart. The patient slept 10 hours previous night. Hemoglobin & hematocrit is low and Dr. Argueta is working this up for stool for occult blood. Valproic acid level is less than 3 and we will repeat it in the morning, refusing meds intermittently but took Depakote tonight. Review of Systems: Shortness of breath on O2 supplements. No CV, system symptoms on review. Ambulation impaired with walker. Mental Status Exam: The patient is oriented to herself and situation. Speech coherent has some latency, quite sedated. Abstraction fair. Computation impaired. Language function intact. Mood and affect withdrawn. Laboratory Data: Reviewed. Impression: Schizoaffective disorder, bipolar type mixed with psychotic features. Anxiety disorder unspecified. Impulse control disorder unspecified. Plan: Continue current psychotropics from initial note. Adjust further as clinically indicated. Assessment: Vital Signs/I&O: Vital Signs Date Time Temp Pulse Resp B/P (MAP) Pulse Ox O2 Delivery O2 Flow Rate FiO2 04/20/21 05:40 98.2 90 24 168/84 (112) 90 Nasal Cannula 2.0 I & O 04/19/21 04/19/21 04/20/21 15:00 23:00 07:00 Intake Total 600 ml 240 ml Balance 600 ml 240 ml Labs: Laboratory Tests Test 04/19/21 07:31 04/19/21 13:40 Glucose (Fingerstick) 174 mg/dL (70-99) H Hemoglobin 7.2 g/dL (12.0-15.5) L Hematocrit 23.0 % (36.0-47.0) L Current Medications: Meds: Laboratory Tests Test 04/19/21 07:31 04/19/21 13:40 Glucose (Fingerstick) 174 mg/dL Hemoglobin 7.2 g/dL Hematocrit 23.0 % Current Medications Medications (Trade) Dose Ordered Sig/Denise Route PRN Reason Start Time Stop Time Status Last Admin Dose Admin Acetaminophen (Tylenol) 650 mg PRN Q6HRS PRN PO PAIN/FEVER 04/18/21 02:00 Amlodipine Besylate (Norvasc) 10 mg DAILY PO 04/18/21 09:00 04/19/21 09:00 Aspirin (Aspirin Chewable) 81 mg DAILY PO 04/18/21 09:00 04/19/21 18:19 DC 04/19/21 09:00 Latanoprost (Xalatan) 1 drop QHS OU 04/18/21 21:00 04/19/21 20:23 Al Hydroxide/Mg Hydroxide (Mylanta Plus Xs) 15 ml PRN AFTMEALHC PRN PO HEARTBURN / GAS 04/18/21 02:00 Melatonin (Melatonin) 3 mg QHS PO 04/18/21 21:00 04/19/21 20:25 Mirtazapine (Remeron) 30 mg QHS PO 04/18/21 21:00 04/19/21 20:25 Olanzapine (ZyPREXA ZYDIS) 2.5 mg PRN Q2HR PRN PO ANXIETY / AGITATION 04/18/21 02:00 Risperidone (RisperDAL) 2 mg DAILY PO 04/18/21 09:00 04/19/21 09:00 Trazodone HCl (Desyrel) 50 mg PRN QHS PRN PO INSOMNIA 04/18/21 02:00 Venlafaxine HCl (Effexor) 75 mg DAILY PO 04/18/21 09:00 04/19/21 08:07 Albuterol Sulfate (Ventolin Hfa Inhaler) 1 puff Q6HRS PRN INH SHORTNESS OF BREATH 04/18/21 05:00 Lisinopril (Prinivil) 5 mg DAILY PO 04/18/21 09:00 04/19/21 08:06 Fluticasone Furoate (ARNUITY 100mcg ELLIPTA) 1 puff DAILY INH 04/18/21 09:00 Non-Formulary Medication (Latanoprost/Pf (Latanoprost 0.005% Eye Drop)) 1 drop QHS OU 04/18/21 21:00 UNV Magnesium Hydroxide (Milk Of Magnesia) 2,400 mg PRN DAILY PRN PO CONSTIPATION 04/18/21 05:00 Metformin HCl (Glucophage) 1,000 mg DAILYWBKFT PO 04/18/21 08:00 04/19/21 08:06 Multi-Ingredient Ointment (Analgesic [place]) 1 uzair PRN Q6HRS PRN TP MUSCLE PAIN 04/18/21 05:00 Olanzapine (ZyPREXA) 20 mg DAILY PO 04/18/21 09:00 04/19/21 09:00 Atorvastatin Calcium (Lipitor) 5 mg QHS PO 04/18/21 21:00 04/19/21 20:25 Non-Formulary Medication (Tiotropium [place] (Spiriva)) 18 mcg BID IH 04/18/21 09:00 UNV Oxybutynin Chloride (Ditropan) 5 mg [id number] PO 04/18/21 09:00 04/19/21 20:24 Valproic Acid (Depakene) 1,250 mg QHS PO 04/18/21 21:00 04/19/21 20:24 Non-Formulary Medication (Venlafaxine Hcl (Venlafaxine Hcl Er)) 75 mg DAILY PO 04/18/21 09:00 UNV Nicotine (Nicoderm Cq 21mg Patch) 1 patch DAILY TD 04/18/21 09:00 Albuterol/ Ipratropium (Combivent Respimat 20-100 Mcg) 1 puff RTQID INH 04/18/21 08:00 04/19/21 20:00 Ferrous Sulfate (Feosol) 325 mg BID PO 04/19/21 21:00 Ascorbic Acid (Vitamin C) 500 mg BID PO 04/19/21 21:00 I have reviewed the current psychotropics carefully including drug interactions. Risk benefit ratio favors no change other than as noted in my dictated progress note. Diagnosis: Problems: (1) Schizoaffective disorder, bipolar type (2) Mild cognitive impairment (3) Bipolar disorder, current episode mixed, severe, with psychotic features (4) Impulse disorder, unspecified (5) Anxiety disorder, unspecified RHETT MATHEW MD Apr 20, 2021 06:49
[2021-04-20 07:04] LABS: VAL ACID 17 mcg/mL (50-100)
[2021-04-20] MEDS: NICOTINE 21MG PATCH. TD SCH (09:00)
[2021-04-20] MEDS: FLUTICASONE FUROATE 100mcg/INH ELLIPTA INHALER. INH SCH (09:00)
[2021-04-20] MEDS: OXYBUTYNIN CHLORIDE 5 MG TABLET PO SCH ×3 (09:39→20:33)
[2021-04-20] MEDS: LISINOPRIL 5 MG TABLET. PO SCH (09:39)
[2021-04-20] MEDS: OLANZapine 10 MG TABLET PO SCH (09:39)
[2021-04-20] MEDS: FERROUS SULFATE 325 MG TABLET. PO SCH ×2 (09:40→20:32)
[2021-04-20] MEDS: amLODIPine BESYLATE 10 MG TABLET PO SCH (09:40)
[2021-04-20] MEDS: VENLAFAXINE 75 MG TABLET. PO SCH (09:40)
[2021-04-20] MEDS: metFORMIN 500 MG TABLET PO SCH (09:41)
[2021-04-20] MEDS: risperiDONE 2 MG TABLET. PO SCH (09:41)
[2021-04-20] MEDS: ASCORBIC ACID 500 MG TABLET PO SCH ×2 (09:41→20:33)
[2021-04-20] MEDS: IPRATROPIUM/ALBUTEROL 20/100mcg/INH INHALER. INH SCH ×4 (09:43→20:30)
[2021-04-20 16:04] VITALS: BP 122/53
[2021-04-20] MEDS: LATANOPROST 0.005% OPHTH SOLUTION 2.5ML BOTTLE. OU SCH (20:31)
[2021-04-20] MEDS: VALPROIC ACID 250 MG CAPSULE. PO SCH (20:32)
[2021-04-20] MEDS: MIRTAZAPINE 30 MG TABLET PO SCH (20:33)
[2021-04-20] MEDS: MELATONIN 3 MG TABLET PO SCH (20:33)
[2021-04-20] MEDS: ATORVASTATIN CALCIUM 10 MG TABLET. PO SCH (20:33)
[2021-04-20] MEDS: ACETAMINOPHEN 325 MG TABLET PO PRN (20:34)
--- NOTE | 2021-04-20 21:56 | PDOC ---
Exam Note: Jose Note: Please also refer to the separate dictated note~for this date of service dictated separately.~Patient seen individually. Discussed the patient with Nursing staff reviewed the chart.~Reviewed interim history and current functioning. Reviewed vital signs,~Labs/ Radiology~and current medications noted below. Continue current treatment with the changes noted in the dictated addendum note Assessment: Vital Signs/I&O: Vital Signs Date Time Temp Pulse Resp B/P (MAP) Pulse Ox O2 Delivery O2 Flow Rate FiO2 04/20/21 16:04 97.0 105 24 122/53 (76) 92 3.0 04/20/21 05:40 Nasal Cannula I & O 04/19/21 04/19/21 04/20/21 15:00 23:00 07:00 Intake Total 600 ml 240 ml Balance 600 ml 240 ml Labs: Laboratory Tests Test 04/20/21 06:05 04/20/21 07:57 Hemoglobin 7.1 g/dL (12.0-15.5) L Hematocrit 22.6 % (36.0-47.0) L Valproic Acid Level 17 mcg/mL (50-100) L Valproic Acid Last Dose Date 04/19/21 Valproic Acid Last Dose Time 2100 Glucose (Fingerstick) 144 mg/dL (70-99) H Current Medications: Meds: Laboratory Tests Test 04/20/21 06:05 04/20/21 07:57 Hemoglobin 7.1 g/dL Hematocrit 22.6 % Valproic Acid (Depakene) Level 17 mcg/mL Valproic Acid Last Dose Date 04/19/21 Valproic Acid Last Dose Time 2100 Glucose (Fingerstick) 144 mg/dL Current Medications Medications (Trade) Dose Ordered Sig/Denise Route PRN Reason Start Time Stop Time Status Last Admin Dose Admin Acetaminophen (Tylenol) 650 mg PRN Q6HRS PRN PO PAIN/FEVER 04/18/21 02:00 04/20/21 20:34 Amlodipine Besylate (Norvasc) 10 mg DAILY PO 04/18/21 09:00 04/20/21 09:40 Aspirin (Aspirin Chewable) 81 mg DAILY PO 04/18/21 09:00 04/19/21 18:19 DC 04/19/21 09:00 Latanoprost (Xalatan) 1 drop QHS OU 04/18/21 21:00 04/20/21 20:31 Al Hydroxide/Mg Hydroxide (Mylanta Plus Xs) 15 ml PRN AFTMEALHC PRN PO HEARTBURN / GAS 04/18/21 02:00 Melatonin (Melatonin) 3 mg QHS PO 04/18/21 21:00 04/20/21 20:33 Mirtazapine (Remeron) 30 mg QHS PO 04/18/21 21:00 04/20/21 20:33 Olanzapine (ZyPREXA ZYDIS) 2.5 mg PRN Q2HR PRN PO ANXIETY / AGITATION 04/18/21 02:00 Risperidone (RisperDAL) 2 mg DAILY PO 04/18/21 09:00 04/20/21 09:41 Trazodone HCl (Desyrel) 50 mg PRN QHS PRN PO INSOMNIA 04/18/21 02:00 Venlafaxine HCl (Effexor) 75 mg DAILY PO 04/18/21 09:00 04/20/21 09:40 Albuterol Sulfate (Ventolin Hfa Inhaler) 1 puff Q6HRS PRN INH SHORTNESS OF BREATH 04/18/21 05:00 Lisinopril (Prinivil) 5 mg DAILY PO 04/18/21 09:00 04/20/21 09:39 Fluticasone Furoate (ARNUITY 100mcg ELLIPTA) 1 puff DAILY INH 04/18/21 09:00 Non-Formulary Medication (Latanoprost/Pf (Latanoprost 0.005% Eye Drop)) 1 drop QHS OU 04/18/21 21:00 UNV Magnesium Hydroxide (Milk Of Magnesia) 2,400 mg PRN DAILY PRN PO CONSTIPATION 04/18/21 05:00 Metformin HCl (Glucophage) 1,000 mg DAILYWBKFT PO 04/18/21 08:00 04/20/21 09:41 Multi-Ingredient Ointment (Analgesic [place]) 1 uzair PRN Q6HRS PRN TP MUSCLE PAIN 04/18/21 05:00 Olanzapine (ZyPREXA) 20 mg DAILY PO 04/18/21 09:00 04/20/21 09:39 Atorvastatin Calcium (Lipitor) 5 mg QHS PO 04/18/21 21:00 04/20/21 20:33 Non-Formulary Medication (Tiotropium [place] (Spiriva)) 18 mcg BID IH 04/18/21 09:00 UNV Oxybutynin Chloride (Ditropan) 5 mg [id number] PO 04/18/21 09:00 04/20/21 20:33 Valproic Acid (Depakene) 1,250 mg QHS PO 04/18/21 21:00 04/20/21 20:32 Non-Formulary Medication (Venlafaxine Hcl (Venlafaxine Hcl Er)) 75 mg DAILY PO 04/18/21 09:00 UNV Nicotine (Nicoderm Cq 21mg Patch) 1 patch DAILY TD 04/18/21 09:00 Albuterol/ Ipratropium (Combivent Respimat 20-100 Mcg) 1 puff RTQID INH 04/18/21 08:00 04/20/21 20:30 Ferrous Sulfate (Feosol) 325 mg BID PO 04/19/21 21:00 04/20/21 20:32 Ascorbic Acid (Vitamin C) 500 mg BID PO 04/19/21 21:00 04/20/21 20:33 I have reviewed the current psychotropics carefully including drug interactions. Risk benefit ratio favors no change other than as noted in my dictated progress note. Diagnosis: Problems: (1) Schizoaffective disorder, bipolar type (2) Mild cognitive impairment (3) Anxiety disorder, unspecified (4) Bipolar disorder, current episode mixed, severe, with psychotic features (5) Impulse disorder, unspecified RHETT MATHEW MD Apr 20, 2021 21:56
[2021-04-21 07:00] VITALS: BP 101/43
[2021-04-21] MEDS: IPRATROPIUM/ALBUTEROL 20/100mcg/INH INHALER. INH SCH ×4 (08:00→20:00)
[2021-04-21 08:12] LABS: BASO % 0 % (0-3); EOS # 0.1 x10^3/uL (0.0-0.7); EOS % 1 % (0-3); HEMATOCRIT 21.4 % (36.0-47.0); LYMPH # 0.7 x10^3/uL (1.0-4.8); LYMPH % 13 % (24-48); MEAN CORPUSCULAR HEMOGLOBIN 27 pg (25-35); MEAN CORPUSCULAR HGB CONC 31 g/dL (31-37); MEAN CORPUSCULAR VOLUME 88 fL (79-100); MONO % 18 % (0-9); NEUT # 3.8 x10^3uL (1.8-7.7); NEUT % 68 % (31-73); PLATELET COUNT 158 x10^3/uL (140-400); RED BLOOD COUNT 2.44 x10^6/uL (3.50-5.40); RED CELL DISTRIBUTION WIDTH 17.6 % (11.5-14.5); WHITE BLOOD COUNT 5.7 x10^3/uL (4.0-11.0)
[2021-04-21 08:14] LABS: HEMOGLOBIN 6.6 g/dL (12.0-15.5)
[2021-04-21] MEDS: risperiDONE 2 MG TABLET. PO SCH (09:00)
[2021-04-21] MEDS: FERROUS SULFATE 325 MG TABLET. PO SCH ×2 (09:00→21:00)
[2021-04-21] MEDS: FLUTICASONE FUROATE 100mcg/INH ELLIPTA INHALER. INH SCH (09:00)
[2021-04-21] MEDS: OLANZapine 10 MG TABLET PO SCH (09:00)
[2021-04-21] MEDS: OXYBUTYNIN CHLORIDE 5 MG TABLET PO SCH ×3 (09:00→21:00)
[2021-04-21] MEDS: ASCORBIC ACID 500 MG TABLET PO SCH ×2 (09:00→21:00)
[2021-04-21] MEDS: amLODIPine BESYLATE 10 MG TABLET PO SCH (09:00)
[2021-04-21] MEDS: LISINOPRIL 5 MG TABLET. PO SCH (09:36)
[2021-04-21] MEDS: VENLAFAXINE 75 MG TABLET. PO SCH (09:37)
[2021-04-21] MEDS: metFORMIN 500 MG TABLET PO SCH (09:37)
--- NOTE | 2021-04-21 12:03 | RAD ---
EXAM: Right femur, 2 views; right hip, 2 views. HISTORY: Pain. Fall. COMPARISON: None. FINDINGS: 2 views of the right hip and femur are obtained. There is a right hip arthroplasty with maykel gstem femoral component. There is a mildly displaced fracture involving the proximal femoral metaphys is. There is a malleable internal fixation plate traversing the acetabulum. There are vascular calcif ications. There is a benign sclerotic lesion within the distal femoral metadiaphysis likely due to a bone infarct or enchondroma. IMPRESSION: 1. Mildly displaced proximal right femoral metadiaphyseal periprosthetic fracture. 2. Longstem right hip arthroplasty and internal fixation of the right acetabulum. Electronically signed by: Susy Harley MD (04/21/2021 12:01 PM) [id number]
[2021-04-21] MEDS: oxyCODONE/APAP 7.5/325 1 TAB TABLET PO PRN ×2 (14:48→20:02)
[2021-04-21 15:47] VITALS: BP 114/61
[2021-04-21] MEDS: ACETAMINOPHEN 325 MG TABLET PO PRN (20:03)
[2021-04-21] MEDS: VALPROIC ACID 250 MG CAPSULE. PO SCH (20:04)
[2021-04-21] MEDS: ATORVASTATIN CALCIUM 10 MG TABLET. PO SCH (21:00)
[2021-04-21] MEDS: MELATONIN 3 MG TABLET PO SCH (21:00)
[2021-04-21] MEDS: MIRTAZAPINE 30 MG TABLET PO SCH (21:00)
[2021-04-21] MEDS: LATANOPROST 0.005% OPHTH SOLUTION 2.5ML BOTTLE. OU SCH (21:00)
--- NOTE | 2021-04-21 22:14 | PDOC ---
Exam Note: Jose Note: Please also refer to the separate dictated note~for this date of service dictated separately.~Patient seen individually. Discussed the patient with Nursing staff reviewed the chart.~Reviewed interim history and current functioning. Reviewed vital signs,~Labs/ Radiology~and current medications noted below. Continue current treatment with the changes noted in the dictated addendum note Assessment: Vital Signs/I&O: Vital Signs Date Time Temp Pulse Resp B/P (MAP) Pulse Ox O2 Delivery O2 Flow Rate FiO2 04/21/21 21:59 100 04/21/21 17:28 18 Nasal Cannula 3.0 04/21/21 15:47 98.4 86 114/61 (78) I & O 0 04/20/21 04/20/21 04/21/21 14:59 22:59 06:59 Intake Total 60 ml 480 ml Balance 60 ml 480 ml Labs: Laboratory Tests Test 04/21/21 07:48 04/21/21 08:00 Glucose (Fingerstick) 139 mg/dL (70-99) H White Blood Count 5.7 x10^3/uL (4.0-11.0) Red Blood Count 2.44 x10^6/uL (3.50-5.40) L Hemoglobin 6.6 g/dL (12.0-15.5) *L Hematocrit 21.4 % (36.0-47.0) L Mean Corpuscular Volume 88 fL (79-100) Mean Corpuscular Hemoglobin 27 pg (25-35) Mean Corpuscular Hemoglobin Concent 31 g/dL (31-37) Red Cell Distribution Width 17.6 % (11.5-14.5) H Platelet Count 158 x10^3/uL (140-400) Neutrophils (%) (Auto) 68 % (31-73) Lymphocytes (%) (Auto) 13 % (24-48) L Monocytes (%) (Auto) 18 % (0-9) H Eosinophils (%) (Auto) 1 % (0-3) Basophils (%) (Auto) 0 % (0-3) Neutrophils # (Auto) 3.8 x10^3uL (1.8-7.7) Lymphocytes # (Auto) 0.7 x10^3/uL (1.0-4.8) L Monocytes # (Auto) 1.0 x10^3/uL (0.0-1.1) Eosinophils # (Auto) 0.1 x10^3/uL (0.0-0.7) Basophils # (Auto) 0.0 x10^3/uL (0.0-0.2) Current Medications: Meds: Laboratory Tests Test 04/21/21 07:48 04/21/21 08:00 Glucose (Fingerstick) 139 mg/dL White Blood Count 5.7 x10^3/uL Red Blood Count 2.44 x10^6/uL Hemoglobin 6.6 g/dL Hematocrit 21.4 % Mean Corpuscular Volume 88 fL Mean Corpuscular Hemoglobin 27 pg Mean Corpuscular Hemoglobin Concent 31 g/dL Red Cell Distribution Width 17.6 % Platelet Count 158 x10^3/uL Neutrophils (%) (Auto) 68 % Lymphocytes (%) (Auto) 13 % Monocytes (%) (Auto) 18 % Eosinophils (%) (Auto) 1 % Basophils (%) (Auto) 0 % Neutrophils # (Auto) 3.8 x10^3uL Lymphocytes # (Auto) 0.7 x10^3/uL Monocytes # (Auto) 1.0 x10^3/uL Eosinophils # (Auto) 0.1 x10^3/uL Basophils # (Auto) 0.0 x10^3/uL Current Medications Medications (Trade) Dose Ordered Sig/Denise Route PRN Reason Start Time Stop Time Status Last Admin Dose Admin Acetaminophen (Tylenol) 650 mg PRN Q6HRS PRN PO PAIN/FEVER 04/18/21 02:00 04/21/21 20:03 Amlodipine Besylate (Norvasc) 10 mg DAILY PO 04/18/21 09:00 04/20/21 09:40 Aspirin (Aspirin Chewable) 81 mg DAILY PO 04/18/21 09:00 04/19/21 18:19 DC 04/19/21 09:00 Latanoprost (Xalatan) 1 drop QHS OU 04/18/21 21:00 04/20/21 20:31 Al Hydroxide/Mg Hydroxide (Mylanta Plus Xs) 15 ml PRN AFTMEALHC PRN PO HEARTBURN / GAS 04/18/21 02:00 Melatonin (Melatonin) 3 mg QHS PO 04/18/21 21:00 04/20/21 20:33 Mirtazapine (Remeron) 30 mg QHS PO 04/18/21 21:00 04/20/21 20:33 Olanzapine (ZyPREXA ZYDIS) 2.5 mg PRN Q2HR PRN PO ANXIETY / AGITATION 04/18/21 02:00 04/21/21 20:10 Risperidone (RisperDAL) 2 mg DAILY PO 04/18/21 09:00 04/20/21 09:41 Trazodone HCl (Desyrel) 50 mg PRN QHS PRN PO INSOMNIA 04/18/21 02:00 Venlafaxine HCl (Effexor) 75 mg DAILY PO 04/18/21 09:00 04/21/21 09:37 Albuterol Sulfate (Ventolin Hfa Inhaler) 1 puff Q6HRS PRN INH SHORTNESS OF BREATH 04/18/21 05:00 Lisinopril (Prinivil) 5 mg DAILY PO 04/18/21 09:00 04/21/21 09:36 Fluticasone Furoate (ARNUITY 100mcg ELLIPTA) 1 puff DAILY INH 04/18/21 09:00 Non-Formulary Medication (Latanoprost/Pf (Latanoprost 0.005% Eye Drop)) 1 drop QHS OU 04/18/21 21:00 UNV Magnesium Hydroxide (Milk Of Magnesia) 2,400 mg PRN DAILY PRN PO CONSTIPATION 04/18/21 05:00 Metformin HCl (Glucophage) 1,000 mg DAILYWBKFT PO 04/18/21 08:00 04/21/21 09:37 Multi-Ingredient Ointment (Analgesic [place]) 1 uzair PRN Q6HRS PRN TP MUSCLE PAIN 04/18/21 05:00 Olanzapine (ZyPREXA) 20 mg DAILY PO 04/18/21 09:00 04/20/21 09:39 Atorvastatin Calcium (Lipitor) 5 mg QHS PO 04/18/21 21:00 04/20/21 20:33 Non-Formulary Medication (Tiotropium [place] (Spiriva)) 18 mcg BID IH 04/18/21 09:00 UNV Oxybutynin Chloride (Ditropan) 5 mg [id number] PO 04/18/21 09:00 04/20/21 20:33 Valproic Acid (Depakene) 1,250 mg QHS PO 04/18/21 21:00 04/21/21 20:04 Non-Formulary Medication (Venlafaxine Hcl (Venlafaxine Hcl Er)) 75 mg DAILY PO 04/18/21 09:00 UNV Nicotine (Nicoderm Cq 21mg Patch) 1 patch DAILY TD 04/18/21 09:00 04/21/21 07:42 DC Albuterol/ Ipratropium (Combivent Respimat 20-100 Mcg) 1 puff RTQID INH 04/18/21 08:00 04/20/21 20:30 Ferrous Sulfate (Feosol) 325 mg BID PO 04/19/21 21:00 04/20/21 20:32 Ascorbic Acid (Vitamin C) 500 mg BID PO 04/19/21 21:00 04/20/21 20:33 Oxycodone/ Acetaminophen (Percocet 7.5/ 325) 1 tab PRN Q6HRS PRN PO PAIN 04/21/21 12:15 04/21/21 20:02 Current Medications Medications (Trade) Dose Ordered Sig/Denise Route PRN Reason Start Time Stop Time Status Last Admin Dose Admin Oxycodone/ Acetaminophen (Percocet 7.5/ 325) 1 tab PRN Q6HRS PRN PO PAIN 04/21/21 12:15 04/21/21 20:02 I have reviewed the current psychotropics carefully including drug interactions. Risk benefit ratio favors no change other than as noted in my dictated progress note. Diagnosis: Problems: (1) Schizoaffective disorder, bipolar type (2) Mild cognitive impairment (3) Anxiety disorder, unspecified (4) Bipolar disorder, current episode mixed, severe, with psychotic features (5) Impulse disorder, unspecified RHETT MATHEW MD Apr 21, 2021 22:14
--- NOTE | 2021-04-21 22:51 | PN ---
DATE: 04/21/2021 SUBJECTIVE: I was called to see the patient. Her hemoglobin came back 6.6 g/dL this morning. When I examined her, she is comfortable. She has a supplemental oxygen on, which is continuous for her COPD. Her heart rate was about 90 per minute. It was not tachycardic. There is no gallop. Her respiratory rate is about 20 per minute. Her lungs were clear. At this time, I recommended no transfusion. The reason for this is evidence based medicine in the recent last decade indicates that the patient, who got blood did worse than the patient who did not get blood and remained asymptomatic. She currently is already on supplemental iron therapy. I would continue this. I would not recommend any nonsteroidals or any blood thinners. I reviewed her medication. She is not on any blood thinners. Therefore, I recommend no transfusion at this time. I recommend a followup CBC this coming Sunday. I would not transfuse unless her hemoglobin drops below 6.0 g/dL. Thank you again for asking me to see this patient in consultation. HEAVENLY DR: DAVION/yo TID: [id number]
[2021-04-22] MEDS ORDERED: FERR325T14 PO (00:37)
[2021-04-22] MEDS ORDERED: OXYC1TAB19 PO (00:38)
[2021-04-22] MEDS ORDERED: ASCO500C PO (00:38)
[2021-04-22 06:24] VITALS: BP 146/64
--- NOTE | 2021-04-22 06:45 | PDOC ---
Exam Note: Jose Note: This note is a late entry for 04/20/2021overs elements not covered in my initial note. Subjective: The patient was seen face to face in the evening of 04/20/2021 with Lars CEBALLOS, discussed and reviewed the chart. The patient slept 9-1/2 hours previous night. She looked somewhat tired, sedated in the morning but better as the day has progressed. She remains relatively non-compliant with her psychotropics picks and chooses medications prescribed to her. Psychological testing is awaited with Dr. Betts. She remains somewhat paranoid. Review of Systems: Shortness of breath on O2 supplements. No CV, , eye system symptoms on review. Ambulation impaired with walker. Mental Status Exam: The patient is oriented to herself and situation. Speech coherent. She has typical mannerisms while conversing, fixated that she will only take Zyprexa and Depakote at night. Abstraction fair. Computation impaired. Language function intact. Short-term memory impaired. No suicidal or homicidal ideation. Laboratory Data: Reviewed. Impression: Schizoaffective disorder, bipolar type mixed with psychotic features. Anxiety disorder unspecified. Impulse control disorder unspecified. Plan: Continue current psychotropics from initial note. Encourage compliance and I had a lengthy discussion with her on this. Adjust further as clinically indicated. Assessment: Vital Signs/I&O: Vital Signs Date Time Temp Pulse Resp B/P (MAP) Pulse Ox O2 Delivery O2 Flow Rate FiO2 04/22/21 06:24 97.7 82 18 146/64 (91) 90 Nasal Cannula 3.0 I & O 04/21/21 04/21/21 04/22/21 15:00 23:00 07:00 Intake Total 840 ml 240 ml Balance 840 ml 240 ml Labs: Laboratory Tests Test 04/21/21 07:48 04/21/21 08:00 Glucose (Fingerstick) 139 mg/dL (70-99) H White Blood Count 5.7 x10^3/uL (4.0-11.0) Red Blood Count 2.44 x10^6/uL (3.50-5.40) L Hemoglobin 6.6 g/dL (12.0-15.5) *L Hematocrit 21.4 % (36.0-47.0) L Mean Corpuscular Volume 88 fL (79-100) Mean Corpuscular Hemoglobin 27 pg (25-35) Mean Corpuscular Hemoglobin Concent 31 g/dL (31-37) Red Cell Distribution Width 17.6 % (11.5-14.5) H Platelet Count 158 x10^3/uL (140-400) Neutrophils (%) (Auto) 68 % (31-73) Lymphocytes (%) (Auto) 13 % (24-48) L Monocytes (%) (Auto) 18 % (0-9) H Eosinophils (%) (Auto) 1 % (0-3) Basophils (%) (Auto) 0 % (0-3) Neutrophils # (Auto) 3.8 x10^3uL (1.8-7.7) Lymphocytes # (Auto) 0.7 x10^3/uL (1.0-4.8) L Monocytes # (Auto) 1.0 x10^3/uL (0.0-1.1) Eosinophils # (Auto) 0.1 x10^3/uL (0.0-0.7) Basophils # (Auto) 0.0 x10^3/uL (0.0-0.2) Current Medications: Meds: Laboratory Tests Test 04/21/21 07:48 04/21/21 08:00 Glucose (Fingerstick) 139 mg/dL White Blood Count 5.7 x10^3/uL Red Blood Count 2.44 x10^6/uL Hemoglobin 6.6 g/dL Hematocrit 21.4 % Mean Corpuscular Volume 88 fL Mean Corpuscular Hemoglobin 27 pg Mean Corpuscular Hemoglobin Concent 31 g/dL Red Cell Distribution Width 17.6 % Platelet Count 158 x10^3/uL Neutrophils (%) (Auto) 68 % Lymphocytes (%) (Auto) 13 % Monocytes (%) (Auto) 18 % Eosinophils (%) (Auto) 1 % Basophils (%) (Auto) 0 % Neutrophils # (Auto) 3.8 x10^3uL Lymphocytes # (Auto) 0.7 x10^3/uL Monocytes # (Auto) 1.0 x10^3/uL Eosinophils # (Auto) 0.1 x10^3/uL Basophils # (Auto) 0.0 x10^3/uL Current Medications Medications (Trade) Dose Ordered Sig/Denise Route PRN Reason Start Time Stop Time Status Last Admin Dose Admin Acetaminophen (Tylenol) 650 mg PRN Q6HRS PRN PO PAIN/FEVER 04/18/21 02:00 04/21/21 20:03 Amlodipine Besylate (Norvasc) 10 mg DAILY PO 04/18/21 09:00 04/20/21 09:40 Aspirin (Aspirin Chewable) 81 mg DAILY PO 04/18/21 09:00 04/19/21 18:19 DC 04/19/21 09:00 Latanoprost (Xalatan) 1 drop QHS OU 04/18/21 21:00 04/20/21 20:31 Al Hydroxide/Mg Hydroxide (Mylanta Plus Xs) 15 ml PRN AFTMEALHC PRN PO HEARTBURN / GAS 04/18/21 02:00 Melatonin (Melatonin) 3 mg QHS PO 04/18/21 21:00 04/20/21 20:33 Mirtazapine (Remeron) 30 mg QHS PO 04/18/21 21:00 04/20/21 20:33 Olanzapine (ZyPREXA ZYDIS) 2.5 mg PRN Q2HR PRN PO ANXIETY / AGITATION 04/18/21 02:00 04/21/21 20:10 Risperidone (RisperDAL) 2 mg DAILY PO 04/18/21 09:00 04/20/21 09:41 Trazodone HCl (Desyrel) 50 mg PRN QHS PRN PO INSOMNIA 04/18/21 02:00 Venlafaxine HCl (Effexor) 75 mg DAILY PO 04/18/21 09:00 04/21/21 09:37 Albuterol Sulfate (Ventolin Hfa Inhaler) 1 puff Q6HRS PRN INH SHORTNESS OF BREATH 04/18/21 05:00 Lisinopril (Prinivil) 5 mg DAILY PO 04/18/21 09:00 04/21/21 09:36 Fluticasone Furoate (ARNUITY 100mcg ELLIPTA) 1 puff DAILY INH 04/18/21 09:00 Non-Formulary Medication (Latanoprost/Pf (Latanoprost 0.005% Eye Drop)) 1 drop QHS OU 04/18/21 21:00 UNV Magnesium Hydroxide (Milk Of Magnesia) 2,400 mg PRN DAILY PRN PO CONSTIPATION 04/18/21 05:00 Metformin HCl (Glucophage) 1,000 mg DAILYWBKFT PO 04/18/21 08:00 04/21/21 09:37 Multi-Ingredient Ointment (Analgesic [place]) 1 uzair PRN Q6HRS PRN TP MUSCLE PAIN 04/18/21 05:00 Olanzapine (ZyPREXA) 20 mg DAILY PO 04/18/21 09:00 04/20/21 09:39 Atorvastatin Calcium (Lipitor) 5 mg QHS PO 04/18/21 21:00 04/20/21 20:33 Non-Formulary Medication (Tiotropium [place] (Spiriva)) 18 mcg BID IH 04/18/21 09:00 UNV Oxybutynin Chloride (Ditropan) 5 mg [id number] PO 04/18/21 09:00 04/20/21 20:33 Valproic Acid (Depakene) 1,250 mg QHS PO 04/18/21 21:00 04/21/21 20:04 Non-Formulary Medication (Venlafaxine Hcl (Venlafaxine Hcl Er)) 75 mg DAILY PO 04/18/21 09:00 UNV Nicotine (Nicoderm Cq 21mg Patch) 1 patch DAILY TD 04/18/21 09:00 04/21/21 07:42 DC Albuterol/ Ipratropium (Combivent Respimat 20-100 Mcg) 1 puff RTQID INH 04/18/21 08:00 04/20/21 20:30 Ferrous Sulfate (Feosol) 325 mg BID PO 04/19/21 21:00 04/20/21 20:32 Ascorbic Acid (Vitamin C) 500 mg BID PO 04/19/21 21:00 04/20/21 20:33 Oxycodone/ Acetaminophen (Percocet 7.5/ 325) 1 tab PRN Q6HRS PRN PO PAIN 04/21/21 12:15 04/21/21 20:02 Current Medications Medications (Trade) Dose Ordered Sig/Denise Route PRN Reason Start Time Stop Time Status Last Admin Dose Admin Oxycodone/ Acetaminophen (Percocet 7.5/ 325) 1 tab PRN Q6HRS PRN PO PAIN 04/21/21 12:15 04/21/21 20:02 I have reviewed the current psychotropics carefully including drug interactions. Risk benefit ratio favors no change other than as noted in my dictated progress note. Diagnosis: Problems: (1) Schizoaffective disorder, bipolar type (2) Mild cognitive impairment (3) Anxiety disorder, unspecified (4) Bipolar disorder, current episode mixed, severe, with psychotic features (5) Impulse disorder, unspecified RHETT MATHEW MD Apr 22, 2021 06:45
--- NOTE | 2021-04-22 07:07 | PDOC ---
Exam Note: Jose Note: This note is a late entry for 04/21/2021overs elements not covered in my initial note. Subjective: The patient was seen face to face in the evening of 04/21/2021 with Socorro CEBALLOS, discussed and reviewed the chart. The patient slept 7 hours previous night. She had a fall in the toilet previous night, complains of right upper leg pain and Dr. Walter was consulted. We have done an x-ray which showed right fracture. Orthopedics may want her transferred for surgical correction but reportedly the daughter is discussing with rest of the family before making a decision. She has been in bed all day, noncompliant with medications, receiving p.r.n. Percocet. Additionally hemoglobin is 6.6. We will defer to Dr. Walter. Review of Systems: Shortness of breath on O2 supplements. No CV, system symptoms on review. Positive for pain right leg. Ambulation impaired with walker. Mental Status Exam: The patient is oriented to herself and situation. Speech coherent with typical mannerisms. Abstraction fair. Computation impaired. Language function intact. Mood and affect intermittently less paranoid. Laboratory Data: Reviewed. Impression: Schizoaffective disorder, bipolar type mixed with psychotic features. Anxiety disorder unspecified. Impulse control disorder unspecified. Plan: Continue current psychotropics from initial note. Adjust further as clinically indicated. We will defer medical management and surgical treatment of her femur fracture to Dr. Walter and patients family. Assessment: Vital Signs/I&O: Vital Signs Date Time Temp Pulse Resp B/P (MAP) Pulse Ox O2 Delivery O2 Flow Rate FiO2 04/22/21 06:24 97.7 82 18 146/64 (91) 90 Nasal Cannula 3.0 I & O 04/21/21 04/21/21 04/22/21 15:00 23:00 07:00 Intake Total 840 ml 240 ml Balance 840 ml 240 ml Labs: Laboratory Tests Test 04/21/21 07:48 04/21/21 08:00 Glucose (Fingerstick) 139 mg/dL (70-99) H White Blood Count 5.7 x10^3/uL (4.0-11.0) Red Blood Count 2.44 x10^6/uL (3.50-5.40) L Hemoglobin 6.6 g/dL (12.0-15.5) *L Hematocrit 21.4 % (36.0-47.0) L Mean Corpuscular Volume 88 fL (79-100) Mean Corpuscular Hemoglobin 27 pg (25-35) Mean Corpuscular Hemoglobin Concent 31 g/dL (31-37) Red Cell Distribution Width 17.6 % (11.5-14.5) H Platelet Count 158 x10^3/uL (140-400) Neutrophils (%) (Auto) 68 % (31-73) Lymphocytes (%) (Auto) 13 % (24-48) L Monocytes (%) (Auto) 18 % (0-9) H Eosinophils (%) (Auto) 1 % (0-3) Basophils (%) (Auto) 0 % (0-3) Neutrophils # (Auto) 3.8 x10^3uL (1.8-7.7) Lymphocytes # (Auto) 0.7 x10^3/uL (1.0-4.8) L Monocytes # (Auto) 1.0 x10^3/uL (0.0-1.1) Eosinophils # (Auto) 0.1 x10^3/uL (0.0-0.7) Basophils # (Auto) 0.0 x10^3/uL (0.0-0.2) Current Medications: Meds: Laboratory Tests Test 04/21/21 07:48 04/21/21 08:00 Glucose (Fingerstick) 139 mg/dL White Blood Count 5.7 x10^3/uL Red Blood Count 2.44 x10^6/uL Hemoglobin 6.6 g/dL Hematocrit 21.4 % Mean Corpuscular Volume 88 fL Mean Corpuscular Hemoglobin 27 pg Mean Corpuscular Hemoglobin Concent 31 g/dL Red Cell Distribution Width 17.6 % Platelet Count 158 x10^3/uL Neutrophils (%) (Auto) 68 % Lymphocytes (%) (Auto) 13 % Monocytes (%) (Auto) 18 % Eosinophils (%) (Auto) 1 % Basophils (%) (Auto) 0 % Neutrophils # (Auto) 3.8 x10^3uL Lymphocytes # (Auto) 0.7 x10^3/uL Monocytes # (Auto) 1.0 x10^3/uL Eosinophils # (Auto) 0.1 x10^3/uL Basophils # (Auto) 0.0 x10^3/uL Current Medications Medications (Trade) Dose Ordered Sig/Denise Route PRN Reason Start Time Stop Time Status Last Admin Dose Admin Acetaminophen (Tylenol) 650 mg PRN Q6HRS PRN PO PAIN/FEVER 04/18/21 02:00 04/21/21 20:03 Amlodipine Besylate (Norvasc) 10 mg DAILY PO 04/18/21 09:00 04/20/21 09:40 Aspirin (Aspirin Chewable) 81 mg DAILY PO 04/18/21 09:00 04/19/21 18:19 DC 04/19/21 09:00 Latanoprost (Xalatan) 1 drop QHS OU 04/18/21 21:00 04/20/21 20:31 Al Hydroxide/Mg Hydroxide (Mylanta Plus Xs) 15 ml PRN AFTMEALHC PRN PO HEARTBURN / GAS 04/18/21 02:00 Melatonin (Melatonin) 3 mg QHS PO 04/18/21 21:00 04/20/21 20:33 Mirtazapine (Remeron) 30 mg QHS PO 04/18/21 21:00 04/20/21 20:33 Olanzapine (ZyPREXA ZYDIS) 2.5 mg PRN Q2HR PRN PO ANXIETY / AGITATION 04/18/21 02:00 04/21/21 20:10 Risperidone (RisperDAL) 2 mg DAILY PO 04/18/21 09:00 04/20/21 09:41 Trazodone HCl (Desyrel) 50 mg PRN QHS PRN PO INSOMNIA 04/18/21 02:00 Venlafaxine HCl (Effexor) 75 mg DAILY PO 04/18/21 09:00 04/21/21 09:37 Albuterol Sulfate (Ventolin Hfa Inhaler) 1 puff Q6HRS PRN INH SHORTNESS OF BREATH 04/18/21 05:00 Lisinopril (Prinivil) 5 mg DAILY PO 04/18/21 09:00 04/21/21 09:36 Fluticasone Furoate (ARNUITY 100mcg ELLIPTA) 1 puff DAILY INH 04/18/21 09:00 Non-Formulary Medication (Latanoprost/Pf (Latanoprost 0.005% Eye Drop)) 1 drop QHS OU 04/18/21 21:00 UNV Magnesium Hydroxide (Milk Of Magnesia) 2,400 mg PRN DAILY PRN PO CONSTIPATION 04/18/21 05:00 Metformin HCl (Glucophage) 1,000 mg DAILYWBKFT PO 04/18/21 08:00 04/21/21 09:37 Multi-Ingredient Ointment (Analgesic [place]) 1 uzair PRN Q6HRS PRN TP MUSCLE PAIN 04/18/21 05:00 Olanzapine (ZyPREXA) 20 mg DAILY PO 04/18/21 09:00 04/20/21 09:39 Atorvastatin Calcium (Lipitor) 5 mg QHS PO 04/18/21 21:00 04/20/21 20:33 Non-Formulary Medication (Tiotropium [place] (Spiriva)) 18 mcg BID IH 04/18/21 09:00 UNV Oxybutynin Chloride (Ditropan) 5 mg [id number] PO 04/18/21 09:00 04/20/21 20:33 Valproic Acid (Depakene) 1,250 mg QHS PO 04/18/21 21:00 04/21/21 20:04 Non-Formulary Medication (Venlafaxine Hcl (Venlafaxine Hcl Er)) 75 mg DAILY PO 04/18/21 09:00 UNV Nicotine (Nicoderm Cq 21mg Patch) 1 patch DAILY TD 04/18/21 09:00 04/21/21 07:42 DC Albuterol/ Ipratropium (Combivent Respimat 20-100 Mcg) 1 puff RTQID INH 04/18/21 08:00 04/20/21 20:30 Ferrous Sulfate (Feosol) 325 mg BID PO 04/19/21 21:00 04/20/21 20:32 Ascorbic Acid (Vitamin C) 500 mg BID PO 04/19/21 21:00 04/20/21 20:33 Oxycodone/ Acetaminophen (Percocet 7.5/ 325) 1 tab PRN Q6HRS PRN PO PAIN 04/21/21 12:15 04/21/21 20:02 Current Medications Medications (Trade) Dose Ordered Sig/Denise Route PRN Reason Start Time Stop Time Status Last Admin Dose Admin Oxycodone/ Acetaminophen (Percocet 7.5/ 325) 1 tab PRN Q6HRS PRN PO PAIN 04/21/21 12:15 04/21/21 20:02 I have reviewed the current psychotropics carefully including drug interactions. Risk benefit ratio favors no change other than as noted in my dictated progress note. Diagnosis: Problems: (1) Schizoaffective disorder, bipolar type (2) Mild cognitive impairment (3) Anxiety disorder, unspecified (4) Bipolar disorder, current episode mixed, severe, with psychotic features (5) Impulse disorder, unspecified RHETT MATHEW MD Apr 22, 2021 07:07
[2021-04-22] MEDS: IPRATROPIUM/ALBUTEROL 20/100mcg/INH INHALER. INH SCH ×2 (08:00→11:58)
[2021-04-22] MEDS: risperiDONE 2 MG TABLET. PO SCH (09:00)
[2021-04-22] MEDS: amLODIPine BESYLATE 10 MG TABLET PO SCH (09:00)
[2021-04-22] MEDS: ASCORBIC ACID 500 MG TABLET PO SCH (09:00)
[2021-04-22] MEDS: OXYBUTYNIN CHLORIDE 5 MG TABLET PO SCH (09:00)
[2021-04-22] MEDS: OLANZapine 10 MG TABLET PO SCH (09:00)
[2021-04-22] MEDS: FERROUS SULFATE 325 MG TABLET. PO SCH (09:00)
[2021-04-22] MEDS: FLUTICASONE FUROATE 100mcg/INH ELLIPTA INHALER. INH SCH (09:00)
[2021-04-22 09:52] VITALS: BP 146/64
[2021-04-22] MEDS: VENLAFAXINE 75 MG TABLET. PO SCH (09:52)
[2021-04-22] MEDS: metFORMIN 500 MG TABLET PO SCH (09:52)
[2021-04-22] MEDS: oxyCODONE/APAP 7.5/325 1 TAB TABLET PO PRN (09:52)
[2021-04-22] MEDS: LISINOPRIL 5 MG TABLET. PO SCH (09:52)
--- NOTE | 2021-04-22 20:02 | DS ---
DATE OF DISCHARGE: 04/22/2021 ATTENDING PHYSICIAN: Dr. Mathew. FINAL DISCHARGE DIAGNOSES: 1. New fracture of the proximal right femoral metadiaphyseal periprosthetic fracture. 2. Previous long stem right hip arthroplasty and internal fixation of the right acetabulum. 3. Calcification of blood vessels. 4. Longstanding schizoaffective disorder with psychosis. 5. Chronic obstructive pulmonary disease. 6. Chronic anemia, chronic disease. 7. Essential hypertension. HISTORY OF PRESENT ILLNESS: The patient is a 75-year-old female with multiple medical issues. She has underlying schizophrenia and was psychotic. She was initially admitted to the [facility]. She tested positive for COVID-19 coronavirus 2 weeks ago. She was asymptomatic at that time, she was actually sent down to the medical floor for quarantine for 10 days and came back up to the [facility] on 04/19/2021. She was readmitted to the behavioral unit. Some time during this transfer, she may have had a fall. She complained of right hip pain and x-rays demonstrated a periprosthetic fracture. She has had previous total hip arthroplasty and the remaining femoral bone that had the prosthesis inserted into it showed definite mildly displaced fracture at the proximal shaft of the femur. This was referred to orthopedic surgeons who recommended open reduction and internal fixation. Arrangements were then made for the patient to be discharged from the [facility] to be readmitted to [facility] to the hospitalist service with orthopedic consultation. I discussed the case with Dr. Winkler, who was gracious to accept the patient in transfer. Regarding her anemia at the time before we found out about the fracture, because of her psychiatric state, it was elected to monitor her for symptoms. She was asymptomatic at that time without any tachypnea, tachycardia or dyspnea. In discussing the case with Dr. Winkler, I suggested that they will probably transfuse her either before or right after the surgery to maintain her hemoglobin. We did obtain consent from the daughter who agreed to transfer the patient for anticipated surgery with orthopedic service. Her discharge medications are as follows: She will continue her scheduled Tylenol, albuterol, ascorbic acid, Lotensin 5 mg daily, fluticasone, ferrous sulfate, latanoprost eyedrops, magnesium hydroxide, melatonin, metformin, Remeron 30 mg at bedtime, olanzapine 2.5 mg p.r.n., oxycodone p.r.n. pain, pravastatin, risperidone, Detrol, trazodone, Depakote, and Effexor doses unchanged. She remains a full code per advanced directives. Her prognosis certainly is guarded. The patient was then discharged from our hospital to be transferred by ambulance to [facility], to the hospitalist service, Dr. Winkler is accepting physician. Orthopedic consultation will be obtained after admission. LUDY DR: Annie TID: [id number] CC: RHETT MATHEW MD
--- NOTE | 2021-04-22 21:38 | PDOC ---
Exam Note: Jose Note: Please also refer to the separate dictated note~for this date of service dictated separately.~Patient seen individually. Discussed the patient with Nursing staff reviewed the chart.~Reviewed interim history and current functioning. Reviewed vital signs,~Labs/ Radiology~and current medications noted below. Continue current treatment with the changes noted in the dictated addendum note Assessment: Vital Signs/I&O: Vital Signs Date Time Temp Pulse Resp B/P (MAP) Pulse Ox O2 Delivery O2 Flow Rate FiO2 04/22/21 11:43 Nasal Cannula 04/22/21 09:52 18 3.0 04/22/21 09:52 82 146/64 04/22/21 06:24 97.7 90 I & O 04/21/21 04/21/21 04/22/21 14:59 22:59 06:59 Intake Total 840 ml 240 ml Balance 840 ml 240 ml Labs: Laboratory Tests Test 04/22/21 07:16 Glucose (Fingerstick) 180 mg/dL (70-99) H Current Medications: Meds: Laboratory Tests Test 04/22/21 07:16 Glucose (Fingerstick) 180 mg/dL Current Medications Medications (Trade) Dose Ordered Sig/Denise Route PRN Reason Start Time Stop Time Status Last Admin Dose Admin Acetaminophen (Tylenol) 650 mg PRN Q6HRS PRN PO PAIN/FEVER 04/18/21 02:00 04/22/21 13:28 DC 04/21/21 20:03 Amlodipine Besylate (Norvasc) 10 mg DAILY PO 04/18/21 09:00 04/22/21 13:28 DC 04/20/21 09:40 Aspirin (Aspirin Chewable) 81 mg DAILY PO 04/18/21 09:00 04/19/21 18:19 DC 04/19/21 09:00 Latanoprost (Xalatan) 1 drop QHS OU 04/18/21 21:00 04/22/21 13:28 DC 04/20/21 20:31 Al Hydroxide/Mg Hydroxide (Mylanta Plus Xs) 15 ml PRN AFTMEALHC PRN PO HEARTBURN / GAS 04/18/21 02:00 04/22/21 13:28 DC Melatonin (Melatonin) 3 mg QHS PO 04/18/21 21:00 04/22/21 13:28 DC 04/20/21 20:33 Mirtazapine (Remeron) 30 mg QHS PO 04/18/21 21:00 04/22/21 13:28 DC 04/20/21 20:33 Olanzapine (ZyPREXA ZYDIS) 2.5 mg PRN Q2HR PRN PO ANXIETY / AGITATION 04/18/21 02:00 04/22/21 13:28 DC 04/21/21 20:10 Risperidone (RisperDAL) 2 mg DAILY PO 04/18/21 09:00 04/22/21 13:28 DC 04/20/21 09:41 Trazodone HCl (Desyrel) 50 mg PRN QHS PRN PO INSOMNIA 04/18/21 02:00 04/22/21 13:28 DC Venlafaxine HCl (Effexor) 75 mg DAILY PO 04/18/21 09:00 04/22/21 13:28 DC 04/22/21 09:52 Albuterol Sulfate (Ventolin Hfa Inhaler) 1 puff Q6HRS PRN INH SHORTNESS OF BREATH 04/18/21 05:00 04/22/21 13:28 DC Lisinopril (Prinivil) 5 mg DAILY PO 04/18/21 09:00 04/22/21 13:28 DC 04/22/21 09:52 Fluticasone Furoate (ARNUITY 100mcg ELLIPTA) 1 puff DAILY INH 04/18/21 09:00 04/22/21 13:28 DC Non-Formulary Medication (Latanoprost/Pf (Latanoprost 0.005% Eye Drop)) 1 drop QHS OU 04/18/21 21:00 UNV Magnesium Hydroxide (Milk Of Magnesia) 2,400 mg PRN DAILY PRN PO CONSTIPATION 04/18/21 05:00 04/22/21 13:28 DC Metformin HCl (Glucophage) 1,000 mg DAILYWBKFT PO 04/18/21 08:00 04/22/21 13:28 DC 04/22/21 09:52 Multi-Ingredient Ointment (Analgesic [place]) 1 uzair PRN Q6HRS PRN TP MUSCLE PAIN 04/18/21 05:00 04/22/21 13:28 DC Olanzapine (ZyPREXA) 20 mg DAILY PO 04/18/21 09:00 04/22/21 13:28 DC 04/20/21 09:39 Atorvastatin Calcium (Lipitor) 5 mg QHS PO 04/18/21 21:00 04/22/21 13:28 DC 04/20/21 20:33 Non-Formulary Medication (Tiotropium [place] (Spiriva)) 18 mcg BID IH 04/18/21 09:00 UNV Oxybutynin Chloride (Ditropan) 5 mg [id number] PO 04/18/21 09:00 04/22/21 13:28 DC 04/20/21 20:33 Valproic Acid (Depakene) 1,250 mg QHS PO 04/18/21 21:00 04/22/21 13:28 DC 04/21/21 20:04 Non-Formulary Medication (Venlafaxine Hcl (Venlafaxine Hcl Er)) 75 mg DAILY PO 04/18/21 09:00 UNV Nicotine (Nicoderm Cq 21mg Patch) 1 patch DAILY TD 04/18/21 09:00 04/21/21 07:42 DC Albuterol/ Ipratropium (Combivent Respimat 20-100 Mcg) 1 puff RTQID INH 04/18/21 08:00 04/22/21 13:28 DC 04/20/21 20:30 Ferrous Sulfate (Feosol) 325 mg BID PO 04/19/21 21:00 04/22/21 13:28 DC 04/20/21 20:32 Ascorbic Acid (Vitamin C) 500 mg BID PO 04/19/21 21:00 04/22/21 13:28 DC 04/20/21 20:33 Oxycodone/ Acetaminophen (Percocet 7.5/ 325) 1 tab PRN Q6HRS PRN PO PAIN 04/21/21 12:15 04/22/21 13:28 DC 04/22/21 09:52 I have reviewed the current psychotropics carefully including drug interactions. Risk benefit ratio favors no change other than as noted in my dictated progress note. Diagnosis: Problems: (1) Schizoaffective disorder, bipolar type (2) Mild cognitive impairment (3) Anxiety disorder, unspecified (4) Bipolar disorder, current episode mixed, severe, with psychotic features (5) Impulse disorder, unspecified RHETT MATHEW MD Apr 22, 2021 21:38
--- NOTE | 2021-04-24 23:02 | DS ---
DATE OF DISCHARGE: 04/22/2021 DISCHARGE SUMMARY/PSYCHIATRIC PROGRESS NOTE This late entry 04/22 covers elements not covered in my initial note. REASON FOR ADMISSION: Please refer to the admission history for details. Briefly, the patient is a 75-year-old -Stateless female referred to us by her primary care physician after the patient had failed outpatient psychiatric interventions living at home. She had failed relapse treatment for schizoaffective disorder, bipolar type with psychotic features; anxiety disorder and impulse control disorder. She was having active auditory and visual hallucinations, hearing voices that keep her from eating. She voiced suicidal thoughts, marked insomnia, agitation, not eating or drinking delusional, paranoid, uncooperative, refusing medications. The patient was initially stabilized in the unit, then turned COVID positive, was transitioned to the skilled unit for isolation, but these behaviors persisted despite stabilization on the COVID-19 and she returned to us for further inpatient psychiatric interventions. She remains withdrawn, refusing medications, had a fall in the toilet, fractured right femur and was transferred to [facility] for surgical correction on 04/22. She also had a low hemoglobin of 6.6. Psychiatrically, she continued to refuse psychotropics intermittently, paranoid, somewhat confused, but no active suicidal or homicidal ideation prior to discharge. FINAL DIAGNOSES: Schizoaffective disorder, bipolar type, mixed with psychotic features; anxiety disorder, unspecified; impulse control disorder, unspecified; anemia, fracture of right femur. Rest unchanged from admission. DISCHARGE MEDICATIONS: Please refer to the MRAD. DISCHARGE INSTRUCTIONS: Psychiatric medical followup at [facility]. Time for discharge day management greater than [address]: Rhea TID: [id number]
--- NOTE | 2021-04-25 21:35 | DS ---
DATE OF DISCHARGE: 04/22/2021 ADDENDUM At the time of the patient's discharge, she was on 2 atypical antipsychotics, olanzapine and Risperdal. She had failed treatment on single antipsychotics and that is the reason she was on a combination. Once she has been stable on this for about 60 days, consideration may be given to reducing the Risperdal by 0.25 mg a day every 3 weeks until it is discontinued to get her back to 1 atypical antipsychotic. The final decision of this is left to her outpatient psychiatrist. SAL[place] DR: Rhea TID: [id number]
== END 2021-04-22 13:20 | disposition short-term general hospital (02) | DRG 885 ==
LOC: GEROPSY 03:10
PROVIDERS: ADMIT Psychiatry & Neurology Psychiatry; ATTEND Psychiatry & Neurology Psychiatry
DX: F25.0 Schizoaffective disorder, bipolar type (principal); S72.91XA Unspecified fracture of right femur, initial encounter for closed fracture; R45.851 Suicidal ideations; D64.9 Anemia, unspecified; E11.9 Type 2 diabetes mellitus without complications; F41.9 Anxiety disorder, unspecified; F63.9 Impulse disorder, unspecified; G31.84 Mild cognitive impairment of uncertain or unknown etiology; G47.00 Insomnia, unspecified; I10 Essential (primary) hypertension; J44.9 Chronic obstructive pulmonary disease, unspecified; W19.XXXA Unspecified fall, initial encounter; Z91.14 Patient's other noncompliance with medication regimen; Z96.641 Presence of right artificial hip joint; R62.7 Adult failure to thrive; Y93.89 Activity, other specified; Y92.89 Other specified places as the place of occurrence of the external cause; Y99.8 Other external cause status; Z78.9 Other specified health status; Z79.899 Other long term (current) drug therapy; Z86.73 Personal history of transient ischemic attack (TIA), and cerebral infarction without residual deficits
CPT/HCPCS: 36415; 73502; 73552; 80053; 80061; 80164; 82306; 82607; 82947; 83036; 83540; 83550; 83735; 84436; 84443; 84480; 85014; 85018; 85025; 85379; 99406